=== PATIENT | male | born 1945 | race Caucasian/White ===

== ENCOUNTER 2016-09-16 16:58 | Inpatient (IN) | payer OTHER ==
--- NOTE | 2016-09-16 17:48 | EDPHY ---
H & P Time Seen by Provider: 09/16/16 17:27 HPI/ROS: Chief complaint. Altered mental status HPI. Patient is 71-year-old male here by EMS with altered mental status. The patient lives is by himself in a motor. By to visit today and found the patient to be confused. He has many chronic medical problems. He was admitted in May for failure to thrive. Patient is without complaints but also is not oriented to time. He has a difficult time walking secondary to generalized weakness. He has a decubitus ulcer on his back that is being treated with outpatient wound management. Patient manages his own medications at home ROS Constitutional. Unknown fever. Generalized weakness Eyes. no problems with vision ENT. no sore throat, no nasal drainage Cardiovascular. no chest pain Respiratory. no shortness of breath, no cough Abdominal. no abdominal pain, no nausea/vomiting, no diarrhea . no problems urinating MS. no calf pain/swelling, no neck/back pain, no joint pain Skin. Decubitus ulcer on back Lymph. no swollen glands Neuro. Can't walk. Minimal verbalization Past Medical/Surgical History: Past medical history CHF, COPD, diabetes, hypertension, dyslipidemia, chronic pain on chronic opiates, depression, lumbar radiculopathy, venous stasis, frequent falls Social History: Lives alone, daily smoker, no recent alcohol Smoking Status: Current every day smoker Physical Exam: General Appearance: Alert but essentially nonverbal male afebrile vital signs are stable with O2 saturation 90% on room air Eyes: Pupils equal and round no pallor or injection. ENT, Mouth: Mucous membranes are moist. Respiratory: No retractions but rales in the bases especially right lung base Cardiovascular: Regular rate and rhythm. Gastrointestinal: Abdomen is soft and nontender, no masses, bowel sounds normal. Neurological: Awake and alert, sensory and motor exams grossly normal. Skin: There is a 3 x 7 cm decubitus ulcer over the lumbar spine. No significant cellulitis or drainage around it Musculoskeletal: Neck is supple nontender. Extremities chronic swelling and venous stasis ulcers to his legs Psychiatric: Patient is oriented to person and place but not to time. When questioned about time he just keeps repeating "it's 3 3 it's 3 3" Constitutional: Initial Vital Signs Temperature (C) 36.5 C 09/16/16 17:06 Heart Rate 83 09/16/16 17:06 Respiratory Rate 18 09/16/16 17:06 Blood Pressure 155/102 H 09/16/16 17:06 O2 Sat (%) 90 L 09/16/16 17:06 O2 Delivery Mode Nasal Cannula O2 (L/minute) 3 Allergies/Adverse Reactions: No Known Allergies Allergy (Unverified 12/26/10 10:34) Home Medications: Medication Instructions Recorded Aspirin EC [Aspirin EC 81 mg (*)] 81 mg PO DAILY 06/06/16 Furosemide 20 mg PO DAILY 06/06/16 Mirtazapine 15 mg PO HS 06/06/16 Polyethylene Glycol 3350 [Miralax 17 gm PO DAILY PRN 06/06/16 17 gm (*)] Pregabalin [LYRICA] 75 mg PO TID 06/06/16 Quetiapine Fumarate 400 mg PO HS 06/06/16 Albuterol [Proventil Inhaler HFA 2 puffs IH Q4HRS PRN #0 mdi 06/10/16 (*)] Cephalexin [Keflex (*)] 500 mg PO Q6HRS #0 cap 06/10/16 Clobetasol 0.05% [Temovate Cream] 1 chintan TP BID #0 cream 06/10/16 HYDROmorphone HCL [Dilaudid 2 mg 2 mg PO Q4 PRN #0 tab 06/10/16 (*)] Nicotine Polacrilex [Nicorette gum 2 mg B Q1HR PRN #0 gum 06/10/16 (*)] Nicotine [Nicoderm Cq 21 mg (*)] 21 mg TD DAILY #0 patch 06/10/16 Sennosides/Docusate Sodium 1 - 2 tab PO BID #0 tab 06/10/16 [Senokot-S] morphINE SR [Ms Contin/Oramorph 100 mg PO TID #0 tab 06/10/16 100 mg (*)] Medical Decision Making - Diagnostics EKG Interpretation: EKG interpreted by me shows normal sinus rhythm with normal interval and axis. QRS is normal. There is frequent PACs. No significant ST elevation or depression. Rate is 79 Imaging: Chest x-ray interpreted by me as right lower lobe pneumonia CT head without contrast shows atrophy and chronic changes but no acute intracranial injury Procedures: IV normal saline. Septic workup ED Course/Re-evaluation: Lactate is negative. Severe sepsis is not cleared. Patient is given IV Rocephin. On serial evaluations patient does seem a little bit more talkative. He still is confused I consulted and discussed case with Dr. Marlys Garcia, hospitalist, who agrees to the admission Differential Diagnosis: Altered mental status this may be the patient taking too many medications. I considered infection and sepsis including pneumonia and urinary tract infection. - Data Points Laboratory Results: Laboratory Results 09/16/16 17:20 09/16/16 17:20 09/16/16 09/16/16 09/16/16 18:07 18:00 17:50 WBC RBC Hgb Hct MCV MCH MCHC RDW Plt Count MPV Neut % (Auto) Lymph % (Auto) Saunders % (Auto) Eos % (Auto) Baso % (Auto) Nucleat RBC Rel Count Absolute Neuts (auto) Absolute Lymphs (auto) Absolute Monos (auto) Absolute Eos (auto) Absolute Basos (auto) Absolute Nucleated RBC Immature Gran % Immature Gran # PT INR APTT VBG Lactic Acid 1.5 mmol/L mmol/L (0.7-2.1) Sodium Potassium Chloride Carbon Dioxide Anion Gap BUN Creatinine Estimated GFR Glucose Calcium Total Bilirubin NT-Pro-B Natriuret Pep Pending Urine Color YELLOW Urine Appearance CLEAR Urine pH 6.0 (5.0-7.5) Ur Specific [place] 1.008 (1.002-1.030) Urine Protein NEGATIVE (NEGATIVE) Urine Ketones NEGATIVE (NEGATIVE) Urine Blood NEGATIVE (NEGATIVE) Urine Nitrate NEGATIVE (NEGATIVE) Urine Bilirubin NEGATIVE (NEGATIVE) Urine Urobilinogen NEGATIVE EU EU (0.2-1.0) Ur Leukocyte Esterase NEGATIVE (NEGATIVE) Urine Glucose NEGATIVE (NEGATIVE) 09/16/16 09/16/16 09/16/16 17:20 17:20 17:00 WBC 10.48 10^3/uL H 10^3/uL (3.80-9.50) RBC 4.42 10^6/uL 10^6/uL (4.40-6.38) Hgb 12.8 g/dL L g/dL (13.7-17.5) Hct 39.8 % L % (40.0-51.0) MCV 90.0 fL fL (81.5-99.8) MCH 29.0 pg pg (27.9-34.1) MCHC 32.2 g/dL L g/dL (32.4-36.7) RDW 14.8 % % (11.5-15.2) Plt Count 209 10^3/uL 10^3/uL (150-400) MPV 10.8 fL fL (8.7-11.7) Neut % (Auto) 77.6 % H % (39.3-74.2) Lymph % (Auto) 15.3 % % (15.0-45.0) Saunders % (Auto) 5.5 % % (4.5-13.0) Eos % (Auto) 0.8 % % (0.6-7.6) Baso % (Auto) 0.5 % % (0.3-1.7) Nucleat RBC Rel Count 0.0 % % (0.0-0.2) Absolute Neuts (auto) 8.14 10^3/uL H 10^3/uL (1.70-6.50) Absolute Lymphs (auto) 1.60 10^3/uL 10^3/uL (1.00-3.00) Absolute Monos (auto) 0.58 10^3/uL 10^3/uL (0.30-0.80) Absolute Eos (auto) 0.08 10^3/uL 10^3/uL (0.03-0.40) Absolute Basos (auto) 0.05 10^3/uL 10^3/uL (0.02-0.10) Absolute Nucleated RBC 0.00 10^3/uL 10^3/uL (0-0.01) Immature Gran % 0.3 % % (0.0-1.1) Immature Gran # 0.03 10^3/uL 10^3/uL (0.00-0.10) PT 13.9 SEC SEC (12.0-15.0) INR 1.08 (0.83-1.16) APTT 43.0 SEC H SEC (23.0-38.0) VBG Lactic Acid Sodium 138 mEq/L mEq/L (134-144) Potassium 5.6 mEq/L H mEq/L (3.5-5.2) Chloride 100 mEq/L mEq/L (97-110) Carbon Dioxide 31 mEq/l mEq/l (22-31) Anion Gap 7 mEq/L L mEq/L (8-16) BUN 14 mg/dL mg/dL (7-23) Creatinine 0.8 mg/dL mg/dL (0.7-1.3) Estimated GFR > 60 Glucose 93 mg/dL mg/dL (70-100) Calcium 8.7 mg/dL mg/dL (8.5-10.4) Total Bilirubin 0.8 mg/dL mg/dL (0.1-1.4) NT-Pro-B Natriuret Pep Urine Color Urine Appearance Urine pH Ur Specific [place] Urine Protein Urine Ketones Urine Blood Urine Nitrate Urine Bilirubin Urine Urobilinogen Ur Leukocyte Esterase Urine Glucose Medications Given: Discontinued Medications Sodium Chloride (Ns) 500 mls @ 0 mls/hr IV ONCE ONE PRN Reason: As Directed Stop: 09/16/16 17:55 Last Admin: 09/16/16 18:00 Dose: 500 mls Departure - Departure Disposition: [facility] Inpatient Acute Clinical Impression: Altered mental status Qualifiers: Altered mental status type: disorientation Qualified Code(s): R41.0 - Disorientation, unspecified Condition: Fair
[2016-09-16] MEDS ORDERED: NS 500 ML IV ONE ×2 (17:54→19:48)
[2016-09-16 18:00] LABS: % IMMATURE GRANULYOCYTES 0.3 % (0.0-1.1); ABSOLUTE IMMATURE GRANULOCYTES 0.03 10^3/uL (0.00-0.10); ADD DIFF? NO; ADD MORPH? NO; ADD SCAN? NO; ATYPICAL LYMPHOCYTE FLAG 20 (0-99); FRAGMENT RBC FLAG 0 (0-99); HEMATOCRIT 39.8 % (40.0-51.0); HEMOGLOBIN 12.8 g/dL (13.7-17.5); LEFT SHIFT FLG 0 (0-99); LIPEMIA HEMOLYSIS FLAG 80 (0-99); MEAN CELL HEMOGLOBIN CONCENTR. 32.2 g/dL (32.4-36.7); MEAN PLATELET VOLUME 10.8 fL (8.7-11.7); PLATELET CLUMPS FLAG 10 (0-99); PLATELET COUNT 209 10^3/uL (150-400); RED BLOOD CELL COUNT 4.42 10^6/uL (4.40-6.38); RED CELL DISTRIBUTION WIDTH 14.8 % (11.5-15.2)
[2016-09-16 18:06] LABS: ANION GAP 7 mEq/L (8-16); BILIRUBIN,TOTAL 0.8 mg/dL (0.1-1.4); CALCIUM 8.7 mg/dL (8.5-10.4); CARBON DIOXIDE 31 mEq/l (22-31); CHLORIDE 100 mEq/L (97-110); CREATININE 0.8 mg/dL (0.7-1.3); GLOMERULAR FILTRATION RATE > 60; GLUCOSE 93 mg/dL (70-100); POTASSIUM 5.6 mEq/L (3.5-5.2); SODIUM 138 mEq/L (134-144)
[2016-09-16 18:15] LABS: COLOR YELLOW; LEUKOCYTE ESTERASE,URINE NEGATIVE (NEGATIVE); NITRITE,URINE NEGATIVE (NEGATIVE)
[2016-09-16 18:42] LABS: INR 1.08 (0.83-1.16); PROTIME(PATIENT) 13.9 SEC (12.0-15.0)
[2016-09-16] MEDS ORDERED: ONDANSETRON 4 MG/2 ML VIAL IVP PRN (19:17)
[2016-09-16] MEDS ORDERED: ONDANSETRON DISINTEGRATING 4 MG TAB PO PRN (19:17)
[2016-09-16] MEDS ORDERED: ALBUTEROL 3 ML DEYVIAL IH PRN (19:17)
--- NOTE | 2016-09-16 19:23 | CPEKG ---
Heart Rate: 79 RR Interval: 759 P-R Interval: 196 QRSD Interval: 84 QT Interval: 360 QTC Interval: 413 P [place]: 73 QRS [place]: 39 T Wave [place]: 50 EKG Severity - ABNORMAL ECG - EKG Impression: SINUS RHYTHM EKG Impression: MULTIPLE ATRIAL PREMATURE COMPLEXES EKG Impression: LOW VOLTAGE IN FRONTAL LEADS Electronically Signed By: Zhao North 16-Sep-2016 21:47:08
--- NOTE | 2016-09-16 19:55 | PDGENHP ---
History and Physical - Chief Complaint altered mental status - History of Present Illness 71 yo male with h/o COPD, chronic pain on high dose opiates and chronic lumbar spine pressure ulcer presents to ED after his family found him in his motor home in an altered state. Upon arrival to the ED, he would only repeat "33" to the physician. He received 500 cc NS bolus and upon my evaluation, he is pleasant and answers questions. He denies fevers, cough, CP or SOB. He uses 2- 4 LPM O2 at night for chronic COPD and continues to smoke a pack per day. He denies wheezing or HALL. He is not sure why he is in the ED and feels well enough to go home. However, he does exhibit some confusion, is unable to correctly repeat even 3 numbers back to me. He denies falling or hitting his head. He reports chronic swelling of his eyelids. He takes high dose opiates for his chronic pain and states he takes his medication as prescribed. He has been receiving home health care services for ongoing wound care of a lumbar spine pressure injury. He had a negative head CT in the ED. He is hypoxic, requiring 4 LPM here and is admitted for further evaluation of his altered mental status and hypoxemia. History Information - Allergies/Home Medication List Allergies/Adverse Reactions: No Known Allergies Allergy (Unverified 12/26/10 10:34) Home Medications: Aspirin EC [Aspirin EC 81 mg (*)] 81 mg PO DAILY 06/06/16 [Last Taken 09/16/16 08:00] Polyethylene Glycol 3350 [Miralax 17 gm (*)] 17 gm PO DAILY PRN 06/06/16 [Last Taken 09/15/16] Furosemide [Lasix 20 MG (*)] 20 mg PO DAILY 09/16/16 [Last Taken 09/16/16 08:00] Mirtazapine 15 mg PO HS 09/16/16 [Last Taken 09/15/16 20:00] Morphine Sulfate [Morphine Sulfate ER] 200 mg PO DAILY 09/16/16 [Last Taken 15:00] Pregabalin [Lyrica 75mg (*)] 75 mg PO HS 09/16/16 [Last Taken 09/14/16] I have personally reviewed and updated: family history, medical history, social history, surgical history - Past Medical History CHF ( diastolic with venous stasis dermatitis), COPD ( On nocturnal oxygen), diabetes type 2, hypertension, hyperlipidemia Additional medical history: chronic pain with continuous opiate dependency, major depressive disorder, chronic lumbar radiculopathy, lumbar pressure ulcer - Surgical History Additional surgical history: reportedly 5 back surgeries and most recent L- spine injection was greater than 3 months ago - Family History Additional family history: mother with breast cancer, no family history of colon cancer - Social History Smoking Status: Current every day smoker Tobacco Use: Cigarettes, Greater than 1 pack/day Alcohol Use: Rarely Drug Use: None Additional social history: independent in his ADLs, utilizes walker for ambulation Review of Systems ROS: 10pt was reviewed & negative except for what was stated in HPI & below Physical Exam Temp Pulse Resp BP Pulse Ox 36.5 C 92 14 150/65 H 91 L 09/16/16 17:06 09/16/16 19:30 09/16/16 19:30 09/16/16 19:30 09/16/16 19:30 O2 (L/minute) 4 Constitutional: chronically ill appearing, unkempt Eyes: PERRL, scleral injection, other (b/l eyelid edema, which pt states is chronic) Ears, Nose, Mouth, Throat: dry mucous membranes, other (adentulous) Cardiovascular: regular rate and rhythym, no murmur, rub, or gallop Respiratory: no respiratory distress, inspiratory crackles Gastrointestinal: normoactive bowel sounds, soft, non-tender abdomen Skin: warm, other (lumbar spine with ~4x6 cm ulceration into sub-cutaneous tissue, no purulence or surrounding erythema) Musculoskeletal: full muscle strength Psychiatric: encephalopathic Lab Data & Imaging Review 09/16/16 17:20 09/16/16 23:12 WBC 10.48 10^3/uL (3.80-9.50) H 09/16/16 17:20 RBC 4.42 10^6/uL (4.40-6.38) 09/16/16 17:20 Hgb 12.8 g/dL (13.7-17.5) L 09/16/16 17:20 Hct 39.8 % (40.0-51.0) L 09/16/16 17:20 MCV 90.0 fL (81.5-99.8) 09/16/16 17:20 MCH 29.0 pg (27.9-34.1) 09/16/16 17:20 MCHC 32.2 g/dL (32.4-36.7) L 09/16/16 17:20 RDW 14.8 % (11.5-15.2) 09/16/16 17:20 Plt Count 209 10^3/uL (150-400) 09/16/16 17:20 MPV 10.8 fL (8.7-11.7) 09/16/16 17:20 Neut % (Auto) 77.6 % (39.3-74.2) H 09/16/16 17:20 Lymph % (Auto) 15.3 % (15.0-45.0) 09/16/16 17:20 [place] % (Auto) 5.5 % (4.5-13.0) 09/16/16 17:20 Eos % (Auto) 0.8 % (0.6-7.6) 09/16/16 17:20 Baso % (Auto) 0.5 % (0.3-1.7) 09/16/16 17:20 Nucleat RBC Rel Count 0.0 % (0.0-0.2) 09/16/16 17:20 Absolute Neuts (auto) 8.14 10^3/uL (1.70-6.50) H 09/16/16 17:20 Absolute Lymphs (auto) 1.60 10^3/uL (1.00-3.00) 09/16/16 17:20 Absolute Monos (auto) 0.58 10^3/uL (0.30-0.80) 09/16/16 17:20 Absolute Eos (auto) 0.08 10^3/uL (0.03-0.40) 09/16/16 17:20 Absolute Basos (auto) 0.05 10^3/uL (0.02-0.10) 09/16/16 17:20 Absolute Nucleated RBC 0.00 10^3/uL (0-0.01) 09/16/16 17:20 Immature Gran % 0.3 % (0.0-1.1) 09/16/16 17:20 Immature Gran # 0.03 10^3/uL (0.00-0.10) 09/16/16 17:20 PT 13.9 SEC (12.0-15.0) 09/16/16 17:00 INR 1.08 (0.83-1.16) 09/16/16 17:00 APTT 43.0 SEC (23.0-38.0) H 09/16/16 17:00 VBG Lactic Acid 1.5 mmol/L (0.7-2.1) 09/16/16 18:07 Sodium 138 mEq/L (134-144) 09/16/16 17:20 Potassium 5.6 mEq/L (3.5-5.2) H 09/16/16 17:20 Chloride 100 mEq/L (97-110) 09/16/16 17:20 Carbon Dioxide 31 mEq/l (22-31) 09/16/16 17:20 Anion Gap 7 mEq/L (8-16) L 09/16/16 17:20 BUN 14 mg/dL (7-23) 09/16/16 17:20 Creatinine 0.8 mg/dL (0.7-1.3) 09/16/16 17:20 Estimated GFR > 60 09/16/16 17:20 Glucose 93 mg/dL (70-100) 09/16/16 17:20 Calcium 8.7 mg/dL (8.5-10.4) 09/16/16 17:20 Total Bilirubin 0.8 mg/dL (0.1-1.4) 09/16/16 17:20 Urine Color YELLOW 09/16/16 17:50 Urine Appearance CLEAR 09/16/16 17:50 Urine pH 6.0 (5.0-7.5) 09/16/16 17:50 Ur Specific [place] 1.008 (1.002-1.030) 09/16/16 17:50 Urine Protein NEGATIVE (NEGATIVE) 09/16/16 17:50 Urine Ketones NEGATIVE (NEGATIVE) 09/16/16 17:50 Urine Blood NEGATIVE (NEGATIVE) 09/16/16 17:50 Urine Nitrate NEGATIVE (NEGATIVE) 09/16/16 17:50 Urine Bilirubin NEGATIVE (NEGATIVE) 09/16/16 17:50 Urine Urobilinogen NEGATIVE EU (0.2-1.0) 09/16/16 17:50 Ur Leukocyte Esterase NEGATIVE (NEGATIVE) 09/16/16 17:50 Urine Glucose NEGATIVE (NEGATIVE) 09/16/16 17:50 Visualized and Interpreted Chest x-ray results: Yes Visualized and Interpreted EKG results: Yes Assessment & Plan Assessment: Acute Encephalopathy - differential includes toxic/metabolic vs medication induced (polypharmacy with high dose opiates and sedating medications) vs infectious vs hypoxemia induced. CT head negative. -Check ABG -treat for possible PNA, further hypoxemia evaluation below -hold sedating medications tonight, but will need to resume opiates tomorrow to avoid w/d -speech/swallow eval Acute on chronic hypoxemic respiratory failure - H/O COPD, uses 2-4 LPM O2 at night. No symptoms of acute COPD exacerbation. Serum CO2 slightly elevated at 31. CXR personally reviewed- possible RLL PNA with blurred diaphragm and right heart border, but with diffuse appearance, may be more c/w HF. He had a normal EF on echo in 2014, RVSP 40. With LE edema, bibasilar crackles and elevated BNP , suspect HF. -r/o PE: check d dimer and pursue CTPA if elevated. CT will also help differentiate fluid from infiltrate. -check ABG -Cont Ceftriaxone/Azithromycin for now for possible PNA -BNP sent and is elevated, increasing suspicion for acute HF as etiology of hypoxemia. IV Lasix now, stop fluids. -echo in am -wean O2 as able, may need continuous home O2 rather than just nocturnal Chronic pain with chronic continuous opioid dependence - he is on >300 morphine equivalents per day. This may be contributing to his hypoxemia and altered mentation. I am concerned it is not safe for him to be managing these high risk medications and he may need a higher level of care or assistance with medication management. -resume morphine in am to prevent w/d, holding tonight given altered mentation (?may need dose reduction) -CM consult Pressure injury lumbar spine - wound care consult requested. This is a deep ulcer, but it does not appear acutely infected. A wound Cx was sent in ED. DM - BG 93 on arrival and prior bg data in 100's. Will order dose adjusted pre- prandial insulin, await med rec. Hypertension - PRN Hydralazine, may need to add an oral agent to his home regimen if persists. Hyperkalemia - mild. Will recheck. Kayexalate if persists elevated. He's also getting Lasix. LE venous stasis - chronic appearance. Continue support hose. DVT PPLX - Lovenox Full code Dispo - inpt, may need placement, CM consult requested. PT/OT evals requested.
[2016-09-16] MEDS ORDERED: D50W 25 GM/50 ML SYR IVP PRN (19:56)
[2016-09-16] MEDS ORDERED: ERYTHROMYCIN 0.5% 1 GM OPHT.OINT EACHEYE ONE (19:57)
[2016-09-16] MEDS ORDERED: NS 1,000 ML IV SCH (20:00)
[2016-09-16 22:18] LABS: BASE EXCESS 2.3 mEq/L (-2.5-2.5); BICARBONATE 28 mEq/L (22-26); MEASURED OXYGEN SATURATION 91 % (92-95); PCO2 50 mmHg (34-38); PO2 62 mmHg (65-75); TCO2 29 mEq/L (23-27)
[2016-09-16] MEDS: IPRATROPIUM/ALBUTEROL 3 ML DEYVIAL IH SCH (22:27)
[2016-09-16] MEDS: AZITHROMYCIN IV 500 MG in D5W 250 ML IV SCH (22:39)
[2016-09-16] MEDS ORDERED: NON-FORMULARY NEW DRUG (Mirtazapine [Mirtazapine] 15 MG) PO SCH (22:57)
[2016-09-16] MEDS ORDERED: hydrALAZINE 20 MG/ML VIAL IVP PRN (23:02)
[2016-09-16] MEDS ORDERED: FUROSEMIDE 40 MG/4 ML VIAL IVP ONE (23:07)
[2016-09-16 23:22] LABS: POTASSIUM 4.4 mEq/L (3.5-5.2)
[2016-09-16] MEDS: MIRTAZAPINE 15 MG TAB PO SCH (23:43)
[2016-09-16] MEDS: ACETAMINOPHEN 325 MG TAB PO PRN (23:47)
[2016-09-17] MEDS ORDERED: IOPAMIDOL (ISOVUE-370) 150 ML BTL IV ONE (00:23)
[2016-09-17] MEDS: IPRATROPIUM/ALBUTEROL 3 ML DEYVIAL IH SCH ×7 (02:45→23:15)
[2016-09-17 04:43] LABS: % IMMATURE GRANULYOCYTES 0.4 % (0.0-1.1); ABSOLUTE IMMATURE GRANULOCYTES 0.03 10^3/uL (0.00-0.10); ADD DIFF? NO; ADD MORPH? NO; ADD SCAN? NO; ATYPICAL LYMPHOCYTE FLAG 30 (0-99); FRAGMENT RBC FLAG 0 (0-99); HEMATOCRIT 35.6 % (40.0-51.0); HEMOGLOBIN 11.4 g/dL (13.7-17.5); LEFT SHIFT FLG 0 (0-99); LIPEMIA HEMOLYSIS FLAG 80 (0-99); MEAN CELL HEMOGLOBIN 28.5 pg (27.9-34.1); PLATELET CLUMPS FLAG 0 (0-99); PLATELET COUNT 164 10^3/uL (150-400); RED CELL DISTRIBUTION WIDTH 14.9 % (11.5-15.2)
[2016-09-17 04:46] LABS: ANION GAP 7 mEq/L (8-16); CALCIUM 8.6 mg/dL (8.5-10.4); CARBON DIOXIDE 30 mEq/l (22-31); CHLORIDE 103 mEq/L (97-110); CREATININE 0.8 mg/dL (0.7-1.3); GLOMERULAR FILTRATION RATE > 60; GLUCOSE 89 mg/dL (70-100); SODIUM 140 mEq/L (134-144)
[2016-09-17] MEDS: ERYTHROMYCIN 0.5% 1 GM OPHT.OINT EACHEYE SCH ×4 (05:42→23:22)
[2016-09-17] MEDS ORDERED: ALBUTEROL 60 PUFFS/8 GM MDI IH PRN (07:32)
[2016-09-17] MEDS: INSULIN LISPRO 100 UNIT/ML SC SCH ×3 (09:13→18:00)
[2016-09-17] MEDS: AZITHROMYCIN IV 500 MG in D5W 250 ML IV SCH (09:32)
[2016-09-17] MEDS: ASPIRIN EC 81 MG TAB PO SCH (09:44)
[2016-09-17] MEDS: FUROSEMIDE 20 MG TAB PO SCH (09:44)
[2016-09-17] MEDS: NICOTINE 21 MG/24 HR PATCH TD SCH (09:44)
[2016-09-17] MEDS: ENOXAPARIN 40 MG/0.4 ML SYR SC SCH (09:45)
[2016-09-17] MEDS: CLOBETASOL 0.05% 15 GM CRTUBE TP SCH ×2 (10:23→23:20)
--- NOTE | 2016-09-17 10:51 | ECHO ---
[id number] + + [address] : : [place] [address] : : [phone] + Adult Echocardiographic Report + ----+ :Name: RAHAT CASTELAN Boubacar Date: 09/17/2016 07:41 AM : : Hospital Admission Number: [id number] Location: 347: :: 1945 Gender: Male Height: 68 in : :Age: 71 yrs Race: WH Weight: 180 lb : :Reason For Study: Elevated BNP/hypoxemia : : BSA: 2.0 meters2 : :History: Stents : + ----+ MMode/2D Measurements \T\ Calculations LVIDd: 4.3 cm EDV(Teich): 83.5 ml Ao root diam: 3.9 cm LA dimension: 4.9 cm Normal Measurement Values: + + :LVIDd (3.5-5.7cm) IVSd (0.6-1.1cm) LVPWd (0.6-1.1cm) Aortic Root (2.0-3.7cm)Left Atrium (1.5-4.0cm): :LV Vol(d) (76-115ml) LV Vol(s) (29-48ml) Ejec Fraction (50-65%)PV Jose (0.6- 1.2m/s) TV Jose (0.4-1.0m/s) : :MV E Jose (0.8-1.0m/s)MV A Jose (0.3-1.0m/s)LVOT Jose (0.7-1.2m/s) Asc Ao Jose ( 0.9-1.8m/s) : + + Doppler Measurements \T\ Calculations MV E max jose: 101.0 cm/sec Ao V2 max: 123.0 cm/sec TR max jose: 300.0 cm/sec MV A max jose: 61.2 cm/sec Ao max P.1 mmHg TR max P.0 mmHg MV E/A: 1.7 Ao mean P.0 mmHg RAP systole: 5.0 mmHg Ao V2 mean: 77.7 cm/sec RVSP(TR): 41.0 mmHg Ao V2 VTI: 26.7 cm Left Ventricle The left ventricle is normal in size. There is normal left ventricular wall thickness. The left ventricle is hyperdynamic. Ejection Fraction = 70-75%. There is Doppler evidence for diastolic dysfunction. No regional wall motion abnormalities noted. Right Ventricle The right ventricle is normal in size and function. Atria The left atrium is mildly dilated. Right atrial size is normal. The interatrial septum is intact with no evidence for an atrial septal defect. Mitral Valve The mitral valve is normal in structure and function. There is no evidence of mitral valve prolapse. There is no mitral valve stenosis. There is mild mitral regurgitation. Tricuspid Valve Normal tricuspid valve. There is mild tricuspid regurgitation. Right ventricular systolic pressure is 41-46mmHg. There is Doppler evidence for mild pulmonary hypertension. Aortic Valve The aortic valve opens well. There is no aortic stenosis. There is no aortic insufficiency. Pulmonic Valve The pulmonic valve is normal in structure and function. There is no pulmonic valvular regurgitation. Great Vessels The aortic root is normal size. Pericardium/Pleural Fat pad vs. trace anterior pericardial effusion. Conclusion A complete two-dimensional transthoracic echocardiogram was performed (2D, M-mode, Doppler and color flow Doppler). The left ventricle is hyperdynamic. Ejection Fraction = 70-75%. There is Doppler evidence for diastolic dysfunction. Valvualr appearance is normal. The left atrium is mildly dilated. There is mild mitral regurgitation. There is mild tricuspid regurgitation. Right ventricular systolic pressure is 41-46mmHg. There is Doppler evidence for mild pulmonary hypertension. Fat pad vs. trace anterior pericardial effusion. Final Reading Physician: Cesar Mcmillan signed on 09/17/2016 10:50 AM Ordering Physician: Marlys Garcia Performed By: Rachel Tellez RDCS
--- NOTE | 2016-09-17 14:42 | WOCRNPDOC ---
WOCRN Advanced Assessment Note - Skin Integrity Problem, Advanced Assess Lower Back Pressure Injury Dressing Type: Mepilex Border Dressing Description: Shadowed Exudate Amount: Minimal Exudate Color: Reddish/Yellow Exudate Characteristic(s): Serosanguinous Integumentary Issue Intervention: Dressing Changed, Dressing Initialed & Dated Nataly Wound Tissue: Intact Nataly Wound Swelling: Mild Wound Bed Color: Red, Yellow Wound Bed Constitution: Granulation Tissue, Undermining (0.5 cm @ 12:00), Adhered Slough (<5% of wound bed) Wound Edges: Epibole, Well Defined Site Odor: None Site Measurement - Head-to-Toe Length X Width X Depth (cm): 5.5 x 3.3 x 0.5 Skin Integrity Problem Comment: Patient reports that injury resulted from a fall against "the edge of a cabinet" at home; and that "a nurse has been changing the dressing every day" either at home or SNF. Removed the shadowed dressing, irrigated wound bed w/NS, gently debrided base w/gauze. Skin prepped periwound; placed Hydrofera Blue Ready foam cut to fit, into base; secured w/ steristrips; covered w/Allevyn. Report to GUNNAR Montano. Right Ankle Excoriation Dressing Type: Allevyn Life Dressing Description: Shadowed Exudate Amount: Minimal Exudate Characteristic(s): Serosanguinous Integumentary Issue Intervention: Dressing Changed, Dressing Initialed & Dated Nataly Wound Tissue: Erythema, Raw, Lipodermatosclerosis, Hemosiderin Staining, Venous Dermatitis, Xerotic, Hair Loss Nataly Wound Swelling: Mild Wound Bed Color: Red Wound Bed Constitution: Smooth Tissue Wound Edges: Irregular, Scarred Site Odor: Slight, Musky Site Measurement - Head-to-Toe Length X Width X Depth (cm): 5 x 4 x 0.2 Skin Integrity Problem Comment: Probable venous stasis ulcer: Moist, shiny erythemic tissue at base, w/irregular margin, surrounded by dry, flaking dermis. Cleaned w/sterile NS and gauze; applied skin prep to intact perimeter; Placed Duoderm hydrocolloid to provide low-profile protection under tubigrips. Applied Dimethicone cream to intact skin at bilateral feet and LEs; Report to GUNNAR Montano.
--- NOTE | 2016-09-17 14:57 | HOSPPROG ---
Hospitalist Progress Note Assessment/Plan: Patient is a 71-year-old male with a history of COPD, chronic pain on high-dose opiates. He presented in the emergency room after his family found him in his motor home in an altered state. On arrival to the ER he was unsure why he was being admitted. Patient shares with me that he knew he was in a confused and something was wrong but was not clear. Today is my 1st encounter with the patient. Chart reviewed. * Acute encephalopathy - ABG shows low oxygen level / some CO2 retention - suspect his encephalopathy is secondary from medication /is on high-dose opiates and from being hypoxic - he has cleared mentally with holding his long-acting narcotic - he is alert and oriented to person place time and situation today * concern for community-acquired pneumonia/ bronchitis - started on treatment - blood cultures pending - on ceftriaxone and azithromycin * acute on chronic hypoxemic respiratory failure - at baseline the patient wears oxygen at night but not during the day - CTA shows no PE/ extensive bronchitis with ground glass opacities. Has highly prominent lymph nodes, likely reactive - echo shows an EF of 70-75%. Elevated RV pressures. Left ventricle is hyper dynamic. Diastolic dysfunction * nicotine dependence - cessation recommended/ nicotine patch * pressure injury on lumbar spine/ right ankle excoriation - appreciate wound care * diabetes types 2 - glucose 89 this morning * hypertension - BP is 134/56 * hyperkalemia - resolved * lower extremity venous stasis/ chronic * DVT prophylaxis - low molecular weight heparin * plan. Likely will be able to go home tomorrow. Patient is very willing to cut back on his long-acting narcotic or just take p.r.n. Bluefield. Will do a trial of Bluefield. He will need home care. He does have some cognitive impairment per speech therapy. Physical therapy is recommending going home with a walker Subjective: He has no complaints. Objective: Vital Signs Temp Pulse Resp BP Pulse Ox 36.8 C 74 16 134/56 H 95 09/17/16 11:50 09/17/16 11:50 09/17/16 11:50 09/17/16 11:50 09/17/16 11:50 Laboratory Results 09/17/16 04:15 09/17/16 04:15 09/16/16 09/17/16 09/18/16 05:59 05:59 05:59 Intake Total 950 Output Total 2024 540 Balance -1075 -540 PT 13.9 SEC (12.0-15.0) 09/16/16 17:00 INR 1.08 (0.83-1.16) 09/16/16 17:00 - Physical Exam Constitutional: no apparent distress, appears nourished, not in pain Eyes: PERRL Ears, Nose, Mouth, Throat: hearing normal Cardiovascular: regular rate and rhythym, no murmur, rub, or gallop Respiratory: no respiratory distress, reduced air movement ( Bibasilar but otherwise clear) Gastrointestinal: normoactive bowel sounds Skin: warm, normal color Musculoskeletal: no muscle tenderness Neurologic: AAOx3 Psychiatric: interacting appropriately, not anxious, not encephalopathic, thought process linear ICD10 Worksheet Patient Problems: Problems Problem Status Onset Altered mental status Acute Aspiration pneumonia Acute COPD (chronic obstructive pulmonary disease) Acute DM type 1 (diabetes mellitus, type 1) Acute Lumbosacral radiculopathy at L5 Acute Narcotic dependency, continuous Acute Renal failure Acute Severe sepsis with septic shock Acute Spinal stenosis, lumbar Acute Tobacco dependence Acute
[2016-09-17] MEDS: VANCOMYCIN HCL/NORMAL SALINE 250 ML IV SCH (18:35)
[2016-09-17] MEDS: HYDROCODONE/APAP 5/325 TAB PO PRN (18:35)
[2016-09-17] MEDS: MIRTAZAPINE 15 MG TAB PO SCH (19:51)
[2016-09-17] MEDS: PREGABALIN 75 MG CAP PO SCH (19:51)
[2016-09-18] MEDS: IPRATROPIUM/ALBUTEROL 3 ML DEYVIAL IH SCH ×5 (03:02→20:06)
[2016-09-18] MEDS: HYDROCODONE/APAP 5/325 TAB PO PRN ×2 (05:36→14:00)
[2016-09-18] MEDS: VANCOMYCIN HCL/NORMAL SALINE 250 ML IV SCH ×2 (05:36→18:11)
[2016-09-18] MEDS: ERYTHROMYCIN 0.5% 1 GM OPHT.OINT EACHEYE SCH ×4 (05:44→21:58)
[2016-09-18] MEDS: INSULIN LISPRO 100 UNIT/ML SC SCH ×2 (08:33→13:34)
[2016-09-18 09:17] LABS: ALANINE AMINOTRANSFERASE 25 IU/L (21-72); ALKALINE PHOSPHATASE 84 IU/L (38-126); ANION GAP 7 mEq/L (8-16); ASPARTATE AMINOTRANSFERASE 64 IU/L (17-59); BILIRUBIN,TOTAL 0.7 mg/dL (0.1-1.4); CALCIUM 8.5 mg/dL (8.5-10.4); CARBON DIOXIDE 28 mEq/l (22-31); CHLORIDE 107 mEq/L (97-110); CREATININE 0.7 mg/dL (0.7-1.3); GLOMERULAR FILTRATION RATE > 60; GLUCOSE 122 mg/dL (70-100); POTASSIUM 3.9 mEq/L (3.5-5.2); SODIUM 142 mEq/L (134-144); TOTAL PROTEIN 6.6 g/dL (6.3-8.2)
[2016-09-18 09:20] LABS: % IMMATURE GRANULYOCYTES 0.1 % (0.0-1.1); ABSOLUTE IMMATURE GRANULOCYTES 0.01 10^3/uL (0.00-0.10); ADD DIFF? NO; ADD MORPH? NO; ADD SCAN? NO; ATYPICAL LYMPHOCYTE FLAG 30 (0-99); FRAGMENT RBC FLAG 0 (0-99); HEMATOCRIT 34.4 % (40.0-51.0); HEMOGLOBIN 11.4 g/dL (13.7-17.5); LEFT SHIFT FLG 0 (0-99); LIPEMIA HEMOLYSIS FLAG 80 (0-99); MEAN CELL HEMOGLOBIN 28.2 pg (27.9-34.1); MEAN CELL HEMOGLOBIN CONCENTR. 33.1 g/dL (32.4-36.7); MEAN CELL VOLUME 85.1 fL (81.5-99.8); MEAN PLATELET VOLUME 10.4 fL (8.7-11.7); PLATELET CLUMPS FLAG 0 (0-99); PLATELET COUNT 162 10^3/uL (150-400); RED BLOOD CELL COUNT 4.04 10^6/uL (4.40-6.38); RED CELL DISTRIBUTION WIDTH 15.2 % (11.5-15.2)
[2016-09-18] MEDS: NICOTINE 21 MG/24 HR PATCH TD SCH (10:41)
[2016-09-18] MEDS: ASPIRIN EC 81 MG TAB PO SCH (10:43)
[2016-09-18] MEDS: FUROSEMIDE 20 MG TAB PO SCH (10:43)
[2016-09-18] MEDS: CLOBETASOL 0.05% 15 GM CRTUBE TP SCH ×2 (10:44→21:58)
[2016-09-18] MEDS: ENOXAPARIN 40 MG/0.4 ML SYR SC SCH (10:44)
[2016-09-18] MEDS ORDERED: MORPHINE SULFATE PO PRN (14:01)
--- NOTE | 2016-09-18 14:10 | HOSPPROG ---
Hospitalist Progress Note Assessment/Plan: Assessment: 71-year-old male p/w acute encephalopathy in setting of bacteremia Plan: # Acute encephalopathy. Evidenced by global brain dysfunction characterized as unresponsiveness plus confusion plus somnolence, acute change from his baseline , most likely secondary to the toxic effects of infection, potentially exacerbated by toxic effects of sustained release opiate - clearing w/ treatment of infxn, holding opiate # Bacteremia. Acute, new problem, further w/u indicated. GPC clusters/GPR, suspect this is MSSA w/ wound as source - D#2 Vanco, will likely adjust abx today toward MSSA once speciates - d/w Dr. Mcgurie, confirmed receipt, appreciate ID consultation - this is day 3 total Abx (CTX day 1, then Vanco), so repeat BCx now - if BCx neg, then PICC and outpt IV Abx # Possible aspiration pneumonia. Evidenced by bibasilar infiltrates on CTA ( personally interpreted) in setting of encephalopathy - leukocytosis improved w/ CTX/AZithro, as it was originally interpreted as CAP - tx stopped yesterday when bacteremia identified as GPC clusters, adjusted to Vanco - will d/w ID whether to empirically tx w/ augmentin - repeat REMOTE SENSING SCIENTIST eval # Atelectasis. Present on CT, resulting in SpO2 90s% on 3-4L in setting of encephalopathy - no overt resp failure - more aggressive IS # Chronic diastolic CHF. No e/o acute exacerbation, has e/o stasis dermatitis, cont current lasix - echo w/ diastolic dysfunction # Nicotine dependence. Cessation recommended/ nicotine patch # Pressure injury. Located on lumbar spine/ right ankle excoriation - appreciate wound care - wound w/ MSSA, suspect this is the source of bacteremia # DM2. No home monitoring, no significant hyperglycemia, stop ISS # Chronic hypertension. Cont home Rx # Hyperkalemia. Resolved - resolved # Chronic pain w/ continuous opiate dependency. 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, reports he has plenty of home Rx and does not need refill # Neuropathy. Cont lyrica Diet. Regular PPx. High risk, lovenox 40 Code. Full Dispo. ADD 09/20 pending neg repeat BCx Subjective: Patient reports that he would like to go home as soon as possible, reports that he has been transferring safely with walker Objective: Vital Signs Temp Pulse Resp BP Pulse Ox 37.0 C 92 18 143/73 H 92 09/18/16 11:51 09/18/16 11:51 09/18/16 11:51 09/18/16 11:51 09/18/16 11:51 Laboratory Results 09/18/16 08:56 09/18/16 08:56 09/17/16 09/18/16 09/19/16 05:59 05:59 05:59 Intake Total 950 500 Output Total 2024 540 Balance -1075 -40 PT 13.9 SEC (12.0-15.0) 09/16/16 17:00 INR 1.08 (0.83-1.16) 09/16/16 17:00 - Physical Exam Constitutional: no apparent distress, not in pain, chronically ill appearing, No uncomfortable Cardiovascular: regular rate and rhythym, no murmur, rub, or gallop, edema (1+ bilateral lower extremity), No irregularly irregular, No tachycardia Respiratory: inspiratory crackles (Bilateral bases), No reduced air movement, No expiratory wheeze, No bronchial breath sounds Gastrointestinal: normoactive bowel sounds, soft, non-tender abdomen, no palpable masses Skin: other (No erythema surrounding the wound on his back, ulcer present in the lumbar thoracic spine, stasis dermatitis bilateral lower feet on the dorsal surfaces with onychomycosis of the nails) Neurologic: AAOx3, No sensation intact bilaterally (Paresthesias bilateral dorsum of the feet), No weakness (Motor strength 5/5 left lower extremity, 4/5 right lower extremity), No facial droop Psychiatric: interacting appropriately, not anxious, not encephalopathic, thought process linear ICD10 Worksheet Patient Problems: Problems Problem Status Onset Altered mental status Acute Aspiration pneumonia Acute COPD (chronic obstructive pulmonary disease) Acute DM type 1 (diabetes mellitus, type 1) Acute Lumbosacral radiculopathy at L5 Acute Narcotic dependency, continuous Acute Renal failure Acute Severe sepsis with septic shock Acute Spinal stenosis, lumbar Acute Tobacco dependence Acute
[2016-09-18] MEDS: MIRTAZAPINE 15 MG TAB PO SCH (19:58)
[2016-09-18] MEDS: PREGABALIN 75 MG CAP PO SCH (19:58)
--- NOTE | 2016-09-18 21:36 | GCON ---
INFECTIOUS DISEASES CONSULTATION DATE OF CONSULTATION: 09/18/2016 REFERRING PHYSICIAN: Taylor Butler NP REASON FOR CONSULTATION: Bacteremia. HISTORY OF PRESENT ILLNESS: The patient is a 71-year-old male with a past medical history of a lumb ar pressure ulceration dating back to last May, at which point in time he describes sustaining a scrape on a cabinet which subsequently has evolved into a chronic pressure ulceration. This was p resent on evaluation on 06/06/2016 when the patient was previously hospitalized. He describes primo beaulieu regular wound care via a home health nurse. The patient was in his usual state of health until this weekend, at which point in time, he was foun d confused by his family. He was noted to have confusion which persisted upon arrival at [facility]. He d id not have any preceding fevers, chills, cough, shortness of breath, or chest pain. He does describe having the chronic wound as outlined above without any significant interval changes . He previously had wounds over both ankles which have now resolved. At the time of presentation, he had a mild leukocytosis with a white blood cell count of 10.5 with 7 8% neutrophils. Blood cultures were obtained at the time of presentation with both sets growing Cor ynebacterium aurimucosum in 1 of 2 sets with Staphylococcus haemolyticus. Swab of the back wound jackson s grown MSSA. The patient had a CT scan of the chest which showed some ground-glass opacity in the bases, raising the question of pneumonia. He was initially treated empirically with ceftriaxone and azithromycin, which were changed to vancomycin yesterday when blood cultures became positive. Currently, the patient feels well without any specific complaints. Given the above findings, I am n ow asked to assist in his ongoing management. PAST MEDICAL HISTORY: Wound as above, congestive heart failure, COPD, type 2 diabetes, hypertension , hyperlipidemia, chronic pain, depression, prostate cancer. PAST SURGICAL HISTORY: Multiple back surgeries, prostatectomy. CURRENT MEDICATIONS: Vancomycin 1 g IV q.12 hours, Lyrica 75 mg p.o. at bedtime, NicoDerm CQ 21 mg patch applied daily, Remeron 15 mg p.o. at bedtime, Lovenox 40 mg subcu daily, Lasix 20 mg p.o. en y, clobetasol cream applied to lower extremities twice daily, aspirin 81 mg p.o. daily. ALLERGIES: No known drug allergies. SOCIAL HISTORY: The patient smokes 4 to 5 cigarettes daily and has smoked since age 18; no alcohol or drug use. He lives independently with long-term assistance. FAMILY HISTORY: Mother with breast cancer; father several days ago from old age. REVIEW OF SYSTEMS: Outside that noted in the HPI, the remainder of a 10-system review was unremarka ble. PHYSICAL EXAMINATION: VITAL SIGNS: Temperature 37.0, heart rate 94, respiratory rate 18, blood pre ssure 143/73, oxygen saturation 89% on room air. GENERAL: The patient is well nourished, well deve loped, in no acute distress. He appears nontoxic. HEENT: There is no scleral icterus, conjunctiva l injection, or conjunctival petechiae. Oropharynx clear without lesions. He is edentulous. Mucou s membranes are moist. There is no nasal discharge. There is no tenderness over the frontal, maxil francis, or mastoid area. NECK: Supple without lymphadenopathy or palpable thyromegaly. CHEST: Mavis r to auscultation bilaterally without adventitious sounds. Respiratory effort is normal. CARDIOVAS CULAR: Regular rate and rhythm without murmurs, gallops, or rubs. ABDOMEN: Soft, nontender, nondi stended. There is no palpable organomegaly. Bowel sounds are present. MUSCULOSKELETAL: There is no cyanosis or clubbing. There is 1+ lower extremity edema bilaterally. SKIN: There are venous st asis changes over both lower extremities with lichenified skin. The upper lumbar region has an appr oximately 8 cm diameter decubitus ulceration with some undermining present without surrounding cellu litis or purulence. LYMPHATICS: There are no cervical or supraclavicular nodes. NEUROLOGICAL: Th e patient is alert and interacts appropriately with the examiner. Cranial nerves 2 through 12 are g rossly intact. LABORATORY DATA: White blood cell count 7.4, hematocrit 34.4, platelets 162, neutrophils 72%. Seru m creatinine is 0.7, AST 64, ALT 25, bilirubin 0.7, albumin 3.0. Blood cultures with 2 of 2 sets sh owing Corynebacterium aurimucosum and 1 of 2 sets with Staphylococcus haemolyticus; back wound cultu re with growth of MSSA. IMPRESSION: Corynebacteria bacteremia: Difficult to distinguish if this represents true bacteremia versus contamination. Given both sets of blood cultures are positive, as well as a chronic skin wo und with no other identified etiology for the patient's presentation, we will treat as if true bacte remia with 7 days of vancomycin. We will have Surgery evaluate chronic decubitus ulceration given t hat this has persisted for now over a 4-month period. RECOMMENDATIONS: 1. Agree with vancomycin 1 g IV q.12 hours with plans for 7 days of treatment provided repeat blood cultures are negative. 2. We will have Surgery evaluate for further care of decubitus ulceration. 3. Follow up repeat blood cultures as available. Thank you for this consultation. We will continue to follow the patient with you. /[id number]/MODL
[2016-09-18] MEDS: morphINE SR 100 MG TAB PO PRN (23:17)
[2016-09-19] MEDS: IPRATROPIUM/ALBUTEROL 3 ML DEYVIAL IH SCH ×6 (02:52→21:15)
[2016-09-19] MEDS: VANCOMYCIN HCL/NORMAL SALINE 250 ML IV SCH (05:57)
[2016-09-19 06:28] LABS: % IMMATURE GRANULYOCYTES 0.1 % (0.0-1.1); ABSOLUTE IMMATURE GRANULOCYTES 0.01 10^3/uL (0.00-0.10); ADD DIFF? NO; ADD MORPH? NO; ADD SCAN? NO; ATYPICAL LYMPHOCYTE FLAG 10 (0-99); FRAGMENT RBC FLAG 0 (0-99); HEMATOCRIT 33.7 % (40.0-51.0); HEMOGLOBIN 10.8 g/dL (13.7-17.5); LEFT SHIFT FLG 0 (0-99); LIPEMIA HEMOLYSIS FLAG 80 (0-99); MEAN CELL HEMOGLOBIN 28.6 pg (27.9-34.1); MEAN CELL VOLUME 89.2 fL (81.5-99.8); MEAN PLATELET VOLUME 10.6 fL (8.7-11.7); PLATELET CLUMPS FLAG 0 (0-99); PLATELET COUNT 160 10^3/uL (150-400); RED BLOOD CELL COUNT 3.78 10^6/uL (4.40-6.38); RED CELL DISTRIBUTION WIDTH 15.4 % (11.5-15.2)
[2016-09-19] MEDS: ERYTHROMYCIN 0.5% 1 GM OPHT.OINT EACHEYE SCH ×4 (06:30→22:11)
[2016-09-19 06:33] LABS: ANION GAP 10 mEq/L (8-16); CALCIUM 8.4 mg/dL (8.5-10.4); CARBON DIOXIDE 23 mEq/l (22-31); CHLORIDE 109 mEq/L (97-110); CREATININE 0.7 mg/dL (0.7-1.3); GLOMERULAR FILTRATION RATE > 60; GLUCOSE 81 mg/dL (70-100); POTASSIUM 4.1 mEq/L (3.5-5.2); SODIUM 142 mEq/L (134-144)
[2016-09-19] MEDS: ENOXAPARIN 40 MG/0.4 ML SYR SC SCH (07:56)
[2016-09-19] MEDS: ACETAMINOPHEN 325 MG TAB PO PRN ×2 (07:56→18:08)
[2016-09-19] MEDS: ASPIRIN EC 81 MG TAB PO SCH (07:57)
[2016-09-19] MEDS: POLYETHYLENE GLYCOL 3350 17 GM PKT PO PRN (07:57)
[2016-09-19] MEDS: CLOBETASOL 0.05% 15 GM CRTUBE TP SCH ×2 (07:58→22:11)
[2016-09-19] MEDS: NICOTINE 21 MG/24 HR PATCH TD SCH (07:58)
[2016-09-19] MEDS: FUROSEMIDE 20 MG TAB PO SCH (08:04)
--- NOTE | 2016-09-19 09:15 | PCMIDPN ---
Assessment/Plan: Assessment/Plan: 1. Corynebacterium bacteremia: - possible source could be #2 - Currently on Vanco. -vanco trough prior to 4th doses is at 14.0. Will change to daily dosing as will likely accumulate further. -Creatinine stable at 0.7. Wbc stable. - f/u blood cx from 09/18 pending -Reviewed plan of care with patient. 2. Chronic back wound: - wound cx showing MSSA at present - Case discussed with surgical team today. Appreciate their eval/care -Wound care note reviewed. -Continue with wound care Meds Vanco 1g q12- Subjective: Afebrile. Feels better. He doesn't feel like he has an infection he tells me. He wants to be able to go home soon. He is on O2 at 2L. He normally wears O2 at night at 2L and intermittently during day as needed. Denies sob, cough, sputum production. Denies abd pain or diarrhea. He is having normal bowel movement. He tells me that he normally sleeps in a recliner due to sob with laying flat and the wound. He does try to sleep on his side. Objective: Vital Signs Temp Pulse Resp BP Pulse Ox 37.2 C 87 17 137/73 H 89 L 09/19/16 07:47 09/19/16 07:47 09/19/16 07:47 09/19/16 07:47 09/19/16 07:47 Laboratory Results 09/19/16 04:30 09/19/16 04:30 09/18/16 09/19/16 09/20/16 05:59 05:59 05:59 Intake Total 184 857 3258 Output Total 540 350 400 Balance -40 600 675 - Physical Exam General Appearance: alert, no apparent distress Respiratory: lungs clear Cardiac/Chest: regular rate, rhythm Extremities: No swelling (compression socks on at present) Abdomen: normal bowel sounds, non-tender, soft, No distended Back: other (moderate sized wound: mostly with granulation tissue base, small areas of patchy slough. no surrounding erythema.) Skin: other (see above) ICD10 Worksheet Patient Problems: Problems Problem Status Onset Altered mental status Acute Aspiration pneumonia Acute COPD (chronic obstructive pulmonary disease) Acute DM type 1 (diabetes mellitus, type 1) Acute Lumbosacral radiculopathy at L5 Acute Narcotic dependency, continuous Acute Renal failure Acute Severe sepsis with septic shock Acute Spinal stenosis, lumbar Acute Tobacco dependence Acute
--- NOTE | 2016-09-19 09:32 | HOSPPROG ---
Hospitalist Progress Note Assessment/Plan: DIAGNOSES: # SACRAL DECUBITUS PRESSURE INJURY, POA, WITH WOUND INFECTION # ACUTE CORYNEBACTERIUM BACTEREMIA, SUSPECT SOURCE IS WOUND # Acute encephalopathy due to above, and likely also to medications # Acute on Chronic Respiratory Failure with Hypoxemia; Possible aspiration pneumonia. # Atelectasis. # Chronic diastolic CHF. No e/o acute exacerbation, # Nicotine dependence. Cessation recommended/ nicotine patch # DM2. No home monitoring, no significant hyperglycemia, stop ISS # Chronic hypertension. Cont home Rx # Chronic pain w/ continuous opiate dependency. 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, reports he has plenty of home Rx and does not need refill PLANS: Continue current antibiotics Will review with Infectious Disease duration of antibiotics considering that we are now treating jessica bacterium from a wound as well as the staff but presumably 7 days Decubitus prevention measures Surgery and Wound Care to evaluate decubitus ulcer Continue oxygen and blood sugar monitoring SUBJECTIVE: States he feels better so far today not confused eating well not sob on O2 little pain OBJECTIVE Vitals reviewed:stable without fever Youth Agent, my review: Exam: alert oriented skin warm dry color ok resps not labored lungs clear BSs heart regular abd soft nondistended nontender, bowel sounds present limbs warm, no edema iv site ok Laboratory data: Blood sugars well controlled Slight drop in Hg WOUND CULTURES: now with Corynebacterium in 2/2 bottles first set, second set pending BLOOD CULTURES: MSSA growing so far Objective: Vital Signs Temp Pulse Resp BP Pulse Ox 37.2 C 87 17 137/73 H 89 L 09/19/16 07:47 09/19/16 07:47 09/19/16 07:47 09/19/16 07:47 09/19/16 07:47 Laboratory Results 09/19/16 04:30 09/19/16 04:30 09/18/16 09/19/16 09/20/16 06:59 06:59 06:59 Intake Total 500 5 Output Total 540 750 Balance -40 1275 PT 13.9 SEC (12.0-15.0) 09/16/16 17:00 INR 1.08 (0.83-1.16) 09/16/16 17:00 ICD10 Worksheet Patient Problems: Problems Problem Status Onset Altered mental status Acute Aspiration pneumonia Acute COPD (chronic obstructive pulmonary disease) Acute DM type 1 (diabetes mellitus, type 1) Acute Lumbosacral radiculopathy at L5 Acute Narcotic dependency, continuous Acute Renal failure Acute Severe sepsis with septic shock Acute Spinal stenosis, lumbar Acute Tobacco dependence Acute
--- NOTE | 2016-09-19 14:17 | WOCRNPDOC ---
WOCRN Advanced Assessment Note - Skin Integrity Problem, Advanced Assess Lower Back Pressure Injury Dressing Type: Allevyn Life, Hydrofera Blue Dressing Description: Clean/Dry, Intact Exudate Amount: Minimal Exudate Color: Reddish/Yellow Exudate Characteristic(s): Serosanguinous Integumentary Issue Intervention: Visualized Under Dressing Monty Wound Tissue: Erythema (mild), Macerated (immediate monty-wound tissue) Monty Wound Swelling: None Wound Bed Color: Red, Yellow Wound Bed Constitution: Granulation Tissue (85%), Loose Slough (15%) Wound Edges: Not Attached, Epibole Site Odor: None Pressure Injury Stage: Stage 3 Pressure Injury Present on Admit: Yes Skin Integrity Problem Comment: Full-thickness wound on lower back, consistent in appearance with stage III pressure injury. Wound bed is comprised of mostly granulation tissue, w/ loose slough noted. There is significant epibole from 10 o'clock to 2 o'clock, which is preventing epithelialization of this wound. Recommend a surgical consultation outpatient to open this edge. Continue w/ existing tx of Hydrofera Blue Ready and Allevyn. Report given to service coordinator Janie. Right Ankle Venous Stasis Ulcer Dressing Type: Hydrocolloid (duo derm) Dressing Description: Intact Exudate Amount: Scant Exudate Color: Clear Exudate Characteristic(s): Serous Integumentary Issue Intervention: Dressing Removed Monty Wound Tissue: Venous Dermatitis, Xerotic Monty Wound Swelling: None Wound Bed Constitution: Smooth Tissue Wound Edges: Irregular Site Odor: None Skin Integrity Problem Comment: Removed existing dressing to assess. Wound is epithelializing along margins. Monty-wound is extremely xerotic w/ significant venous dermatitis. Patient will need ongoing compression therapy in the outpatient setting. Sent Size E tubigrip stockings to service coordinator Janie to apply after patient's shower.
--- NOTE | 2016-09-19 19:13 | GPN ---
DATE OF PROCEDURE: 09/19/2016 PREOP DIAGNOSIS: Lumbar wound, chronic. POSTOP DIAGNOSIS: Lumbar wound, chronic. ANESTHESIA: None. PROCEDURE PERFORMED: Excisional debridement of skin and soft tissue of lumbar wound. INDICATION: The patient is a 71-year-old man, who developed a wound on his back several months ago. He thinks that he bumped it against a cabinet and the wound worsened from that time. He presented to the emergency room and was found to have bacteremia with Carinae bacteria. He is currently rece iving IV antibiotics. He has a home care nurse coming to his house 3 times weekly for wound care. We were asked to evaluate the wound for excisional debridement. DESCRIPTION OF PROCEDURE: He verbally consented for the procedure. A timeout was performed. The a christian was prepped in the usual sterile fashion and then infiltrated with 5 cc of 1% lidocaine with epi nephrine. I then excised the superior rim of the wound, which was undermining. Hemostasis was achieved with el ectrocautery, as well as Winter. The lot number is [id number], expiration 09/19/2020. I then reapplied Hydrofera Blue Ready and an Allevyn bandage. The final wound dimensions were 6 x 4 x 0.8 cm with 10 0% granulation tissue in the base. He tolerated the procedure well. We will continue to follow through this admission. /[id number]/MODL
[2016-09-19] MEDS: PREGABALIN 75 MG CAP PO SCH (21:34)
[2016-09-19] MEDS: morphINE SR 100 MG TAB PO PRN (21:34)
[2016-09-19] MEDS: MIRTAZAPINE 15 MG TAB PO SCH (21:34)
[2016-09-20] MEDS ORDERED: LIDOCAINE 1% *Not for Epidural 20 ML MDV NB ONE (00:45)
[2016-09-20] MEDS: IPRATROPIUM/ALBUTEROL 3 ML DEYVIAL IH SCH ×5 (04:12→19:53)
[2016-09-20] MEDS: ERYTHROMYCIN 0.5% 1 GM OPHT.OINT EACHEYE SCH ×4 (05:08→20:06)
[2016-09-20 05:59] LABS: HEMATOCRIT 32.4 % (40.0-51.0); HEMOGLOBIN 10.2 g/dL (13.7-17.5)
[2016-09-20 06:05] LABS: INR 1.15 (0.83-1.16); PROTIME(PATIENT) 14.6 SEC (12.0-15.0)
[2016-09-20] MEDS: POLYETHYLENE GLYCOL 3350 17 GM PKT PO PRN (08:03)
[2016-09-20] MEDS: NICOTINE 21 MG/24 HR PATCH TD SCH (08:04)
[2016-09-20] MEDS: ACETAMINOPHEN 325 MG TAB PO PRN (08:04)
[2016-09-20] MEDS: FUROSEMIDE 20 MG TAB PO SCH (08:05)
[2016-09-20] MEDS: ASPIRIN EC 81 MG TAB PO SCH (08:05)
[2016-09-20] MEDS: ENOXAPARIN 40 MG/0.4 ML SYR SC SCH (08:05)
[2016-09-20] MEDS ORDERED: VANCOMYCIN HCL/NORMAL SALINE 250 ML IV SCH (09:00)
[2016-09-20] MEDS: CLOBETASOL 0.05% 15 GM CRTUBE TP SCH ×2 (10:13→20:06)
--- NOTE | 2016-09-20 12:50 | SOAPPROG ---
SOAP Progress Note Assessment/Plan: Assessment: 71 yo M s/p excisional debridement of chronic lumbar wound on 09/19 Bleeding stopped Pain controlled Would clean and dry Change dressing PRN [facility] PRN Objective: Vital Signs Temp Pulse Resp BP Pulse Ox 37.1 C 83 18 139/70 H 95 09/20/16 07:37 09/20/16 09:20 09/20/16 09:20 09/20/16 07:37 09/20/16 09:20 Laboratory Results 09/20/16 04:17 09/19/16 04:30 09/19/16 09/20/16 09/21/16 05:59 05:59 05:59 Intake Total 950 1275 200 Output Total 350 1100 Balance 600 175 200 PT 14.6 SEC (12.0-15.0) 09/20/16 04:17 INR 1.15 (0.83-1.16) 09/20/16 04:17 ICD10 Worksheet Patient Problems: Problems Problem Status Onset Altered mental status Acute Aspiration pneumonia Acute COPD (chronic obstructive pulmonary disease) Acute DM type 1 (diabetes mellitus, type 1) Acute Lumbosacral radiculopathy at L5 Acute Narcotic dependency, continuous Acute Renal failure Acute Severe sepsis with septic shock Acute Spinal stenosis, lumbar Acute Tobacco dependence Acute
--- NOTE | 2016-09-20 14:29 | HOSPPROG ---
Hospitalist Progress Note Assessment/Plan: DIAGNOSES: # SACRAL DECUBITUS PRESSURE INJURY, POA, WITH WOUND INFECTION # ACUTE CORYNEBACTERIUM BACTEREMIA, SUSPECT SOURCE IS WOUND # Acute encephalopathy due to above, and likely also to medications # Acute on Chronic Respiratory Failure with Hypoxemia; Possible aspiration pneumonia. # Atelectasis. # Chronic diastolic CHF. No e/o acute exacerbation, # Nicotine dependence. Cessation recommended/ nicotine patch # DM2. No home monitoring, no significant hyperglycemia, stop ISS # Chronic hypertension. Cont home Rx # Chronic pain w/ continuous opiate dependency. 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, reports he has plenty of home Rx and does not need refill PLANS: Continue current antibiotics Will review with Infectious Disease duration of antibiotics considering that we are now treating jessica bacterium from a wound as well as the staff but presumably 7 days Decubitus prevention measures Surgery and Wound Care to evaluate decubitus ulcer Continue oxygen and blood sugar monitoring SUBJECTIVE: States he feels better so far today not confused eating well not sob on O2 little pain OBJECTIVE Vitals reviewed:stable without fever Uptwist Spinner, my review: Exam: alert oriented skin warm dry color ok resps not labored lungs clear BSs heart regular abd soft nondistended nontender, bowel sounds present limbs warm, no edema iv site ok Laboratory data: Blood sugars well controlled Slight drop in Hg WOUND CULTURES: now with Corynebacterium in 2/2 bottles first set, second set pending BLOOD CULTURES: MSSA growing so far Objective: Vital Signs Temp Pulse Resp BP Pulse Ox 37.1 C 80 16 139/70 H 95 09/20/16 07:37 09/20/16 13:45 09/20/16 13:45 09/20/16 07:37 09/20/16 09:20 Laboratory Results 09/20/16 04:17 09/19/16 04:30 09/19/16 09/20/16 09/21/16 06:59 06:59 06:59 Intake Total 2024 200 200 Output Total 750 700 Balance 1275 -500 200 PT 14.6 SEC (12.0-15.0) 09/20/16 04:17 INR 1.15 (0.83-1.16) 09/20/16 04:17 ICD10 Worksheet Patient Problems: Problems Problem Status Onset Altered mental status Acute Aspiration pneumonia Acute COPD (chronic obstructive pulmonary disease) Acute DM type 1 (diabetes mellitus, type 1) Acute Lumbosacral radiculopathy at L5 Acute Narcotic dependency, continuous Acute Renal failure Acute Severe sepsis with septic shock Acute Spinal stenosis, lumbar Acute Tobacco dependence Acute
--- NOTE | 2016-09-20 16:37 | HOSPPROG ---
Hospitalist Progress Note Assessment/Plan: DIAGNOSES: # SACRAL DECUBITUS PRESSURE INJURY, POA, WITH WOUND INFECTION # ACUTE POLYMICROBIAL BACTEREMIA, SUSPECT SOURCE IS WOUND # Acute encephalopathy due to above, and likely also to medications # Acute on Chronic Respiratory Failure with Hypoxemia; Possible aspiration pneumonia. # Atelectasis. # Chronic diastolic CHF. No e/o acute exacerbation, # Nicotine dependence. Cessation recommended/ nicotine patch # DM2. No home monitoring, no significant hyperglycemia, stop ISS # Chronic hypertension. Cont home Rx # Chronic pain w/ continuous opiate dependency. 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 Decubitus prevention measures Surgery and Wound Care providing ongoing care for decubitus ulcer Continue oxygen and blood sugar monitoring SUBJECTIVE: Feels much better overall. No pain no shortness of breath no fever symptoms, eating well OBJECTIVE Vitals reviewed: stable without fever Exam: alert oriented skin warm dry color ok resps not labored lungs clear BSs heart regular abd soft nondistended nontender, bowel sounds present limbs warm, no edema iv site ok Laboratory data: Blood sugars well controlled Hemoglobin stable WOUND CULTURES: Corynebacterium in 2/2 bottles first set, second set pending BLOOD CULTURES: MSSA, Corynebacterium, and Strep are growing so far Objective: Vital Signs Temp Pulse Resp BP Pulse Ox 37.3 C 92 17 152/94 H 96 09/20/16 16:28 09/20/16 16:28 09/20/16 16:28 09/20/16 16:28 09/20/16 16:28 Laboratory Results 09/20/16 04:17 09/19/16 04:30 09/19/16 09/20/16 09/21/16 06:59 06:59 06:59 Intake Total 2024 200 200 Output Total 750 700 Balance 1275 -500 200 PT 14.6 SEC (12.0-15.0) 09/20/16 04:17 INR 1.15 (0.83-1.16) 09/20/16 04:17 ICD10 Worksheet Patient Problems: Problems Problem Status Onset Altered mental status Acute Aspiration pneumonia Acute COPD (chronic obstructive pulmonary disease) Acute DM type 1 (diabetes mellitus, type 1) Acute Lumbosacral radiculopathy at L5 Acute Narcotic dependency, continuous Acute Renal failure Acute Severe sepsis with septic shock Acute Spinal stenosis, lumbar Acute Tobacco dependence Acute
--- NOTE | 2016-09-20 18:36 | PCMIDPN ---
Assessment/Plan: Assessment/Plan: * Corynebacterium bacteremia likely associated with chronic lumbar wound: Repeat debridement of wound by surgical service with marked improvement in wound bed appearance. Plan 7 days of vancomycin (day 3/7). Okay for patient to complete this as an outpatient - favor use of peripheral IV given that he will only need 3 days of therapy post discharge. Reassess vancomycin trough in a.m. prior to discharge. 09/20/16 18:34 Subjective: Patient feels well. Status post repeat debridement of back wound with removal of undermining regions. Objective: Vital Signs Temp Pulse Resp BP Pulse Ox 37.3 C 92 17 152/94 H 96 09/20/16 16:28 09/20/16 16:28 09/20/16 16:28 09/20/16 16:28 09/20/16 16:28 Laboratory Results 09/20/16 04:17 09/19/16 04:30 09/19/16 09/20/16 09/21/16 05:59 05:59 05:59 Intake Total 950 1275 200 Output Total 350 1100 550 Balance 600 175 -350 Vancomycin # 3 Blood cultures 09/18/2016 no growth - Physical Exam General Appearance: alert, no apparent distress EENT: No scleral icterus, No conjunctival petechiae Respiratory: lungs clear, No respiratory distress Cardiac/Chest: regular rate, rhythm, No systolic murmur Back: other (Pressure ulceration over lumbar region with healthy tissue throughout and no surrounding erythema; no purulence) ICD10 Worksheet Patient Problems: Problems Problem Status Onset Altered mental status Acute Aspiration pneumonia Acute COPD (chronic obstructive pulmonary disease) Acute DM type 1 (diabetes mellitus, type 1) Acute Lumbosacral radiculopathy at L5 Acute Narcotic dependency, continuous Acute Renal failure Acute Severe sepsis with septic shock Acute Spinal stenosis, lumbar Acute Tobacco dependence Acute
--- NOTE | 2016-09-20 18:39 | PDIAF ---
- Diagnosis Diagnosis: Bacteremia Code Status: Full Code - Medication Management Discharge Medications: Medications to Continue on Transfer Aspirin EC [Aspirin EC 81 mg (*)] 81 mg PO DAILY 06/06/16 [Last Taken 09/16/16 08:00] Polyethylene Glycol 3350 [Miralax 17 gm (*)] 17 gm PO DAILY PRN 06/06/16 [Last Taken 09/15/16] Albuterol [Proventil Inhaler HFA (*)] 2 puffs IH Q4HRS PRN #0 mdi 06/10/16 [ Last Taken 09/16/16 15:00] Clobetasol 0.05% [Temovate Cream] 1 chintan TP BID #0 cream 06/10/16 [Last Taken 08:00] Nicotine [Nicoderm Cq 21 mg (*)] 21 mg TD DAILY #0 patch 06/10/16 [Last Taken 08:00] Furosemide [Lasix 20 MG (*)] 20 mg PO DAILY 09/16/16 [Last Taken 09/16/16 08:00] Mirtazapine 15 mg PO HS 09/16/16 [Last Taken 09/15/16 20:00] Morphine Sulfate [Morphine Sulfate ER] 200 mg PO DAILY 09/16/16 [Last Taken 15:00] Pregabalin [Lyrica 75mg (*)] 75 mg PO HS 09/16/16 [Last Taken 09/14/16] Body Make Up Artist Antibiotics: Vancomycin 1 g IV Q 24 hours Fpc Antibiotic Stop Date: 09/24/16 Discharge Medications: Refer to the Discharge Home Medication list for PRN reason. PICC Care - Routine: N/A - Labs/Radiology Call or Fax Lab and Imaging Results to: No lab data needed - Follow Up Care Current Providers and Referrals: [facility] [Other] - As per Instructions
[2016-09-20] MEDS ORDERED: IPRATROPIUM/ALBUTEROL 3 ML DEYVIAL IH PRN (20:07)
[2016-09-20] MEDS: morphINE SR 100 MG TAB PO PRN (21:30)
[2016-09-20] MEDS: PREGABALIN 75 MG CAP PO SCH (21:30)
[2016-09-20] MEDS: MIRTAZAPINE 15 MG TAB PO SCH (21:30)
[2016-09-21] MEDS: ERYTHROMYCIN 0.5% 1 GM OPHT.OINT EACHEYE SCH (05:35)
[2016-09-21 05:47] LABS: ANION GAP 6 mEq/L (8-16); CALCIUM 8.8 mg/dL (8.5-10.4); CARBON DIOXIDE 26 mEq/l (22-31); CHLORIDE 108 mEq/L (97-110); CREATININE 0.7 mg/dL (0.7-1.3); GLOMERULAR FILTRATION RATE > 60; GLUCOSE 87 mg/dL (70-100); POTASSIUM 4.4 mEq/L (3.5-5.2); SODIUM 140 mEq/L (134-144)
[2016-09-21 07:40] VITALS: BP 145/80; PULSE 78; RESP 17; TEMP 98.5; O2SAT 91
--- NOTE | 2016-09-21 10:07 | SOAPPROG ---
SOAP Progress Note Assessment/Plan: Assessment: s/p Excisional debridement of lumbar pressure wound. Yasmeen and Alevyn in 3 times per week. home care to change dressing follow up with [facility] 2 weeks continue offloading S: he is doing well o: the dressing was intact and so I did not change it today Plan: 09/21/16 10:06 Objective: Vital Signs Temp Pulse Resp BP Pulse Ox 36.9 C 78 17 145/80 H 91 L 09/21/16 07:39 09/21/16 07:39 09/21/16 07:39 09/21/16 07:39 09/21/16 07:39 Laboratory Results 09/20/16 04:17 09/21/16 04:35 09/20/16 09/21/16 09/22/16 05:59 05:59 05:59 Intake Total 1275 200 Output Total 1100 550 400 Balance 175 -350 -400 PT 14.6 SEC (12.0-15.0) 09/20/16 04:17 INR 1.15 (0.83-1.16) 09/20/16 04:17 ICD10 Worksheet Patient Problems: Problems Problem Status Onset Altered mental status Acute Aspiration pneumonia Acute COPD (chronic obstructive pulmonary disease) Acute DM type 1 (diabetes mellitus, type 1) Acute Lumbosacral radiculopathy at L5 Acute Narcotic dependency, continuous Acute Renal failure Acute Severe sepsis with septic shock Acute Spinal stenosis, lumbar Acute Tobacco dependence Acute
--- NOTE | 2016-09-21 10:44 | PDIAF ---
- Diagnosis Diagnosis: Bacteremia Code Status: Full Code - Medication Management Discharge Medications: Medications to Continue on Transfer Aspirin EC [Aspirin EC 81 mg (*)] 81 mg PO DAILY 06/06/16 [Last Taken 09/16/16 08:00] Polyethylene Glycol 3350 [Miralax 17 gm (*)] 17 gm PO DAILY PRN 06/06/16 [Last Taken 09/15/16] Albuterol [Proventil Inhaler HFA (*)] 2 puffs IH Q4HRS PRN #0 mdi 06/10/16 [ Last Taken 09/16/16 15:00] Clobetasol 0.05% [Temovate Cream] 1 chintan TP BID #0 cream 06/10/16 [Last Taken 08:00] Nicotine [Nicoderm Cq 21 mg (*)] 21 mg TD DAILY #0 patch 06/10/16 [Last Taken 08:00] Furosemide [Lasix 20 MG (*)] 20 mg PO DAILY 09/16/16 [Last Taken 09/16/16 08:00] Mirtazapine 15 mg PO HS 09/16/16 [Last Taken 09/15/16 20:00] Morphine Sulfate [Morphine Sulfate ER] 200 mg PO DAILY 09/16/16 [Last Taken 15:00] Pregabalin [Lyrica 75mg (*)] 75 mg PO HS 09/16/16 [Last Taken 09/14/16] Residential Sales Consultant Antibiotics: Vancomycin 1.5 g IV Q 24 hours Residential Sales Consultant Antibiotic Stop Date: 09/24/16 Discharge Medications: Refer to the Discharge Home Medication list for PRN reason. PICC Care - Routine: N/A - Labs/Radiology Call or Fax Lab and Imaging Results to: No lab data needed - Follow Up Care Current Providers and Referrals: [facility] [Other] - As per Instructions [facility] [Clinic] - ([address] lentz)
[2016-09-21] MEDS ORDERED: VANCOMYCIN 1.5 GM in D5W 250 ML IV SCH (11:00)
[2016-09-21] MEDS: ENOXAPARIN 40 MG/0.4 ML SYR SC SCH (11:12)
[2016-09-21] MEDS: ACETAMINOPHEN 325 MG TAB PO PRN (11:13)
[2016-09-21] MEDS: ASPIRIN EC 81 MG TAB PO SCH (11:13)
[2016-09-21] MEDS: NICOTINE 21 MG/24 HR PATCH TD SCH (11:13)
[2016-09-21] MEDS: POLYETHYLENE GLYCOL 3350 17 GM PKT PO PRN (11:14)
[2016-09-21] MEDS: CLOBETASOL 0.05% 15 GM CRTUBE TP SCH (11:14)
[2016-09-21] MEDS: FUROSEMIDE 20 MG TAB PO SCH (11:16)
--- NOTE | 2016-09-21 11:17 | PDIAF ---
- Diagnosis Diagnosis: Bacteremia, decubitus wound on back Code Status: Full Code - Medication Management Discharge Medications: Medications to Continue on Transfer Aspirin EC [Aspirin EC 81 mg (*)] 81 mg PO DAILY 06/06/16 [Last Taken 09/16/16 08:00] Polyethylene Glycol 3350 [Miralax 17 gm (*)] 17 gm PO DAILY PRN 06/06/16 [Last Taken 09/15/16] Albuterol [Proventil Inhaler HFA (*)] 2 puffs IH Q4HRS PRN #0 mdi 06/10/16 [ Last Taken 09/16/16 15:00] Clobetasol 0.05% [Temovate Cream] 1 chintan TP BID #0 cream 06/10/16 [Last Taken 08:00] Nicotine [Nicoderm Cq 21 mg (*)] 21 mg TD DAILY #0 patch 06/10/16 [Last Taken 08:00] Furosemide [Lasix 20 MG (*)] 20 mg PO DAILY 09/16/16 [Last Taken 09/16/16 08:00] Mirtazapine 15 mg PO HS 09/16/16 [Last Taken 09/15/16 20:00] Morphine Sulfate [Morphine Sulfate ER] 200 mg PO DAILY 09/16/16 [Last Taken 15:00] Pregabalin [Lyrica 75mg (*)] 75 mg PO HS 09/16/16 [Last Taken 09/14/16] Vancomycin [Vancomycin (*)] 1.5 gm IV Q24H #0 vial 09/21/16 [Last Taken Unknown] Steward/Stewardess Third Antibiotics: Vancomycin 1.5 g IV Q 24 hours Steward/Stewardess Third Antibiotic Stop Date: 09/24/16 Discharge Medications: Refer to the Discharge Home Medication list for PRN reason. PICC Care - Routine: N/A - Orders Services needed: Home Care, Registered Nurse Home Care Face to Face: I certify that this patient was under my care and that I had the required [id number] encounter meeting the encounter requirements on the discharge day. My findings support the fact that the patient is homebound as defined in CMS Chapter 7 Medicare Benefits Manual 30.1.1, The condition of the patient is such that there exists a normal inability to leave home and consequently, leaving home would require a considerable and taxing effort. Diet Recommendation: no restrictions on diet Diet Texture: Regular Texture Diet Wound Care Instructions: May shower with dressing off, otherwise keep wound covered with Yasmeen / Allevyn border changed 3 x per week - Labs/Radiology Call or Fax Lab and Imaging Results to: No lab data needed - Follow Up Care Current Providers and Referrals: [facility] [Other] - As per Instructions [facility] [Clinic] - ([address] lentz)
--- NOTE | 2016-09-21 16:21 | PDDCSUM ---
Discharge Summary Discharge Summary: DISCHARGE DIAGNOSES: # SACRAL DECUBITUS PRESSURE INJURY, POA, WITH WOUND INFECTION # ACUTE POLYMICROBIAL BACTEREMIA, SUSPECT SOURCE IS WOUND # Acute encephalopathy due to above in addition to medications # Acute on Chronic Respiratory Failure with Hypoxemia resolved # Atelectasis. # Chronic diastolic CHF. No e/o acute exacerbation, # Nicotine dependence. Cessation recommended/ nicotine patch # DM2. # Chronic hypertension. # Chronic pain w/ continuous prescribed opiate dependency CONSULTANTS: Dr. Giana Platt PROCEDURES: Incision and debridement of pressure wound on his back HOSPITAL COURSE SUMMARY: Patient who has multiple chronic medical problems came in with fever and acute confusional state. He was found to have a polymicrobial bacteremia likely due to a large decubitus ulcer in his back that was fairly deep. Cultures of wound and blood cultures grew the jessica bacterium, Staph aureus, a non hemolytic strep, and Staphylococcus haemolyticus. He was treated here with wound care and IV antibiotics with vancomycin. He actually recovered from these issues quite nicely with complete resolution of his acute confusion and fevers. He is at this point with no pain, eating well, ambulating well and is stable for discharge to home. The current plan is for 7 days of total antibiotic therapy and he will be getting home IV vancomycin. There was some mild acute on chronic respiratory failure and there was initially some concern for possible aspiration but the patient did not have any difficulty swallowing here with good results on swallow evaluations. Other chronic medical issues remained in good control here. MEDICATION CHANGES: Addition of IV vancomycin FOLLOW-UP PLAN: He has home nursing care for home IV and wound care set up He will follow up with Dr. Giana Platt in the [facility] in 2 weeks Will follow up with Dr. Zhao Mcguire and the [facility] in 5 days Greater than 35 minutes bedside and care coordination time today
--- NOTE | 2016-09-25 22:52 | GCON ---
DATE OF CONSULTATION: 09/19/2016 REASON FOR CONSULTATION: Chronic wound back. HISTORY OF PRESENT ILLNESS: The patient is a 71-year-old diabetic man who developed a wound on his lumbar back. He reports that he scraped it on a cabinet and it developed into a large wound. He li ves independently and is not bed bound. He does not use a wheelchair. He was hospitalized with eileen teremia and the wound was thought to be the underlying source. He has regular wound care at home se veral times per week. PAST MEDICAL HISTORY: Congestive heart failure, COPD, type 2 diabetes, hypertension, hyperlipidemia , chronic pain, depression, prostate cancer. PAST SURGICAL HISTORY: Multiple back surgeries, prostatectomy. ALLERGIES: No known drug allergies. SOCIAL HISTORY: He lives independently and has home care for dressing changes. He is a smoker. He denies alcohol or recreational drug use. FAMILY HISTORY: Mother with breast cancer. REVIEW OF SYSTEMS: A 10-point review of systems negative aside from HPI. PHYSICAL EXAMINATION: GENERAL: Well-developed, well-nourished man, in no acute distress. HEENT: Normocephalic, atraumatic. No hearing deficits. Pupils equal and round. No scleral icterus. Muco us membranes moist. NECK: Trachea midline. RESPIRATORY: No increased work of breathing. CARDIOV ASCULAR: No peripheral edema. SKIN: The upper lumbar wound is approximately 6 cm in diameter with of the superficial edge. There is healthy granulation tissue in the base. No surroundi ng erythema, drainage, or other evidence of infection. In addition, he has evidence of venous stasi s dermatitis of his bilateral lower extremities. PSYCH: Mood and affect normal. IMPRESSION AND PLAN: The patient is a 71-year-old man with a chronic wound of his lumbar back. We recommend debridement at bedside in order to clean up the wound edges and promote further granulatio n tissue. He agrees to the plan. We will perform bedside debridement and dressing change. He will require home care following this admission for continued wound checks and dressing changes. Please see procedure note for further details. /[id number]/MODL
== END 2016-09-21 16:07 | disposition home health service (06) | DRG 570 ==
LOC: EDUNIT# → F3N 20:29
PROVIDERS: ADMIT Hospitalist; ATTEND Internal Medicine
PROC: 0HB8XZZ Excision of Buttock Skin, External Approach (ICD-10-PCS; principal; 2016-09-19)
DX: L89.153 Pressure ulcer of sacral region, stage 3 (principal); G93.40 Encephalopathy, unspecified; J69.0 Pneumonitis due to inhalation of food and vomit; J96.21 Acute and chronic respiratory failure with hypoxia; R78.81 Bacteremia; E87.5 Hyperkalemia; B95.61 Methicillin susceptible Staphylococcus aureus infection as the cause of diseases classified elsewhere; I87.8 Other specified disorders of veins; I50.32 Chronic diastolic (congestive) heart failure; J44.9 Chronic obstructive pulmonary disease, unspecified; E11.9 Type 2 diabetes mellitus without complications; I10 Essential (primary) hypertension; E78.5 Hyperlipidemia, unspecified; G89.29 Other chronic pain; F11.20 Opioid dependence, uncomplicated; F17.210 Nicotine dependence, cigarettes, uncomplicated; Z99.81 Dependence on supplemental oxygen
CPT/HCPCS: 92507-GN; 92523-GN; 97116-GP; 97161-GP; 97165-GO; 97530-GO; 97530-GP; 97535-GO; G8978-GP-CI; G8979-GP-CI; G8980-GP-CI; G8987-GO-CK; G8988-GO-CI; G9168-GN-CJ; G9169-GN-CH; J0456; J0696; J1650; J3370; Q9967

== ENCOUNTER → 2016-11-28 | Outpatient (CLI) | payer OTHER | LOC: FIMAGING 14:03 | PROVIDERS: ATTEND Family Medicine | DX: M51.36 Other intervertebral disc degeneration, lumbar region (principal); M51.37 Other intervertebral disc degeneration, lumbosacral region; M51.35 Other intervertebral disc degeneration, thoracolumbar region; M51.86 Other intervertebral disc disorders, lumbar region; M51.87 Other intervertebral disc disorders, lumbosacral region; M12.88 Other specific arthropathies, not elsewhere classified, other specified site; M48.06 Spinal stenosis, lumbar region; M48.07 Spinal stenosis, lumbosacral region; M48.05 Spinal stenosis, thoracolumbar region; M99.73 Connective tissue and disc stenosis of intervertebral foramina of lumbar region; M99.72 Connective tissue and disc stenosis of intervertebral foramina of thoracic region; G95.9 Disease of spinal cord, unspecified; G83.4 Cauda equina syndrome; R32 Unspecified urinary incontinence ==

== ENCOUNTER → 2017-02-06 | Outpatient (CLI) | payer OTHER | LOC: FIMAGING 13:31 | PROVIDERS: ATTEND Nurse Practitioner | DX: S32.020A Wedge compression fracture of second lumbar vertebra, initial encounter for closed fracture (principal); S32.030A Wedge compression fracture of third lumbar vertebra, initial encounter for closed fracture; M47.896 Other spondylosis, lumbar region; M51.26 Other intervertebral disc displacement, lumbar region; M48.06 Spinal stenosis, lumbar region; M41.86 Other forms of scoliosis, lumbar region; M16.11 Unilateral primary osteoarthritis, right hip; M51.34 Other intervertebral disc degeneration, thoracic region; M46.94 Unspecified inflammatory spondylopathy, thoracic region; M48.04 Spinal stenosis, thoracic region; Z98.1 Arthrodesis status ==

== ENCOUNTER → 2017-02-21 | Outpatient (CLI) | payer OTHER ==
[~2017-02-21] MED LIST: IOPAMIDOL (ISOVUE-300) 100 ML BTL ONE
== END ==
LOC: FIMAGING 12:16
PROVIDERS: ATTEND Family Medicine
DX: R59.1 Generalized enlarged lymph nodes (principal); K80.20 Calculus of gallbladder without cholecystitis without obstruction; K83.8 Other specified diseases of biliary tract; I25.10 Atherosclerotic heart disease of native coronary artery without angina pectoris; M16.11 Unilateral primary osteoarthritis, right hip; M25.451 Effusion, right hip
CPT/HCPCS: 71260; 74177; Q9967

== ENCOUNTER → 2017-03-07 | Outpatient (CLI) | payer OTHER ==
[~2017-03-07] MED LIST changes: -IOPAMIDOL (ISOVUE-300) 100 ML BTL ONE; +LIDOCAINE 1% 300 MG/30 ML SDV ONE
[2017-03-08 16:31] LABS: FINAL DIAGNOSIS See Comments; MICROSCOPIC DESCRIPTION See Comments
== END ==
LOC: FIMAGING 09:31
PROVIDERS: ATTEND Family Medicine
PROC: 07BJ4ZX Excision of Left Inguinal Lymphatic, Percutaneous Endoscopic Approach, Diagnostic (ICD-10-PCS; principal; 2017-03-07)
DX: R59.0 Localized enlarged lymph nodes (principal)
CPT/HCPCS: 88184-90; 88185-91

== ENCOUNTER → 2017-03-27 | Outpatient (CLI) | payer OTHER, MEDICAID | LOC: FIMAGING 13:56 | PROVIDERS: ATTEND Nurse Practitioner | DX: M50.30 Other cervical disc degeneration, unspecified cervical region (principal); M50.20 Other cervical disc displacement, unspecified cervical region; M48.02 Spinal stenosis, cervical region; M99.71 Connective tissue and disc stenosis of intervertebral foramina of cervical region ==

== ENCOUNTER 2017-04-12 19:41 | Inpatient (IN) | payer OTHER ==
--- NOTE | 2017-04-12 19:57 | EDPHY ---
H & P Time Seen by Provider: 04/12/17 19:48 HPI/ROS: CHIEF COMPLAINT: Weakness, difficulty breathing HISTORY OF PRESENT ILLNESS: 72 year old male arriving from home via EMS for evaluation of difficulty breathing and weakness. His home care nurse stopped by this evening and called EMS. He has been feeling "under the weather" but feels better today. He is usually on 2L home oxygen for CHF. He missed his Benicar dose today, but is not sure why. He endorses occasional cough due to hiatal hernia with associated pain in his stomach. He did not feel he was having trouble breathing today. He endorses feeling lightheaded. He endorses some groin pain. He denies pain or pressure in his chest. He denies vomiting or diarrhea. No recent illness or fever. REVIEW OF SYSTEMS: A 10 point review of systems was performed and is negative with the exception of the elements mentioned in the history of present illness. - Personal History Tetanus Vaccine Date: >10 YRS - Medical/Surgical History PMH: Hypertension, CHF, COPD (on home O2), Diabetes mellitus, Detached retina ( surgical correction x3), Venous stasis ulcers, Anemia, Chronic back pain ( multiple operations), Lumbar stenosis, Rotator cuff tears x3, Depression Hx Asthma: No Hx Chronic Respiratory Disease: No Hx Diabetes: Yes Hx Cardiac Disease: No Hx Renal Disease: No Hx Cirrhosis: No Hx Alcoholism: Yes Hx HIV/AIDS: No Hx Splenectomy or Spleen Trauma: No Other PMH: DM, CHF, wears O2 at night for 8 years - does not know if he has any kind of lung disease. 5 back operations, chronic back pain. 3 rotator cuff tears, 3 eye surgerie (detached retina.) HTN,lumbar stenosis, copd, depression. diab,venouse stasis ulcers, smoker, anemia, falls at home - Social History Smoking Status: Current every day smoker Additional Social History: . [place] in [place] 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 Current daily tobacco use. - Physical Exam Exam: General Appearance: Alert, appears comfortable and is talkative Eyes: Pupils equal and round, no conjunctival pallor or injection ENT, Mouth: Mucous membranes moist Neck: Normal inspection Respiratory: Normal respiratory rate. Rales left base. Cardiovascular: Irregularly irregular tachycardia Gastrointestinal: mild epigastric tenderness. Abdomen is soft. Neurological: A&O, nonfocal exam Skin: Warm and dry, no rash Extremities: 2+ tense pedal edema bilaterally. Nontender Psychiatric: Mood and affect normal Constitutional: Initial Vital Signs Temperature (C) 37.5 C 04/12/17 19:41 Heart Rate 132 H 04/12/17 19:41 Respiratory Rate 22 H 04/12/17 19:41 Blood Pressure 93/55 L 04/12/17 19:41 O2 Sat (%) 85 L 04/12/17 19:41 O2 Delivery Mode Hi-Flow Nasal Cannula O2 (L/minute) 30 Allergies/Adverse Reactions: No Known Allergies Allergy (Unverified 12/26/10 10:34) Home Medications: Medication Instructions Recorded Aspirin EC [Aspirin EC 81 mg (*)] 81 mg PO DAILY 06/06/16 Mirtazapine 15 mg PO HS 09/16/16 Pregabalin [Lyrica 75mg (*)] 75 mg PO TID 09/16/16 Aclidinium [place] [Tudorza 1 puffs IH Q12 04/12/17 Pressair] Olmesartan Medoxomil [Olmesartan 5 mg PO DAILY 04/12/17 Medoxomil] Quetiapine Fumarate [Quetiapine 25 mg PO HS 04/12/17 Fumarate] morphINE SR [Ms Contin/Oramorph 100 mg PO TID 04/12/17 100 mg (*)] oxyCODONE IR [Oxycodone Ir (*)] 30 mg PO Q4 PRN 04/12/17 Medical Decision Making - Diagnostics EKG Interpretation: EKG interpreted by me reveals atrial fibrillation, rate 134, Interpretation: atrial fibrillation. Imaging Results: Chest X-Ray 04/12/17 20:04 Impression: Hypoventilatory features with cardiomegaly, peribronchial thickening and mild pulmonary vascular congestion, and bibasilar airspace disease. Imaging: Discussed imaging studies w/ data collection specialist Radiologist, I viewed and interpreted images myself ED Course/Re-evaluation: This patient presents in rapid atrial fibrillation, with a blood pressure in the 90s. The clinical history is difficult to obtain and is unclear whether he has a CHF exacerbation or whether he may have pneumonia. He is surprisingly asymptomatic. Main PE finding is hypoxia, also has mild epig tenderness. Chest x-ray reveals pulmonary vascular congestion as well as by basilar infiltrates, possibly bilateral lower lobe pneumonia. Blood pressure decreased to 83/53. Given that he may have congestive heart failure, and has a large oxygen requirement, I will give him gentle IV fluids but will not provide fluids per the sepsis protocol. I think that 30mg/kg IVF would seriously compromise his respiratory status. Blood cultures were drawn and serum lactate ordered. Levaquin 750 mg IV ordered. BP 90/60, HR 127, atrial fibrillation. 8:30pm: BNP and troponin elevated, consistent with congestive heart failure and acute coronary syndrome. The patient's blood pressure is in the 70s and heart rate is in the 120s. It is unclear whether the atrial fibrillation, with a heart rate in the 120s, is causing the hypotension. I consulted Dr. Noe Sams for consideration of cardioversion. In the meantime, dopamine was ordered. The patient remains relatively asymptomatic and is sitting up and talking with us. Dr. Sams will come into the emergency department to see the patient. The patient was seen by Dr. Sams in the emergency department. The patient declined cardioversion. For tonight, Dr. Sams suggests that if the patient's blood pressure is less than 90, we will start dopamine. If his blood pressure tolerates, we will give small doses of diltiazem. The hospitalist service was consulted for admission. Heparin per wt-based protocol initiated. 9:50pm: SBP 70's, dopamine started. After starting the dopamine the patient's heart rate went to 190s. The dopamine was discontinued. The patient has blood pressure dropped to the 80s. The risks and benefits of cardioversion were discussed with the patient and he is now consents to cardioversion. Versed 2 mg IV x 2 given. Cardioversion 100 joules given with no success. Cardioversion with 200 joules was also unsuccessful. Patient's heart rate was in the 140s and he had episodes of either SVT with aberrancy or V-tach. Repeat EKG revealed SVT, rate 190s. Amiodarone 150 mg IV given, followed by an amiodarone drip. After this, the patient stabilized. Heart rate in the 100s, blood pressure 96/71, O2 sat 93%. Dr. Sams consulted again; requests Amiodarone 150mg IV bolus (2nd bolus) and Dr. Sams will return to the ED for further attempts at cardioversion. 360J x 2 unsuccessful, remains in Afib with a rate 90-100, SBP 100's. The pt tolerated the procedure well, has no new c/o. Discussion with Dr. Sams/hospitalist re central line placement. Given pt improved on Amiodarone drip, SBP 90's-100's, on Heparin drip, etiology likely cardiac, will not place central line now. Critical Care Time: Critical care time by me 75 minutes exclusive of unbundled procedures. Time spent in direct pt care, consultations, discussions with family. organ at risk : cardiopulmonary - Data Points Laboratory Results: Laboratory Results 04/12/17 19:50 04/12/17 19:50 04/12/17 04/12/17 19:50 19:50 D-Dimer 5.22 ug/mLFEU H ug/mLFEU (0.00-0.50) TSH 1.500 uIU/mL uIU/mL (0.465-4.680) Medications Given: Albuterol (Ventolin Hfa Inhaler) 4 puffs IH Q4H [facility] Stop: 10/10/17 02:59 Last Admin: 04/13/17 07:52 Dose: Not Given Hydrocortisone (Solucortef) 50 mg IVP Q6HRS [facility] Stop: 10/10/17 05:59 Last Admin: 04/13/17 08:35 Dose: 50 mg Heparin Sodium (Porcine) (Heparin 50 Units/Ml (Premix)) 500 mls @ 0 mls/hr IV CONT BRITTANY; Per Protocol PRN Reason: Protocol Stop: 10/09/17 22:29 Last Admin: 04/12/17 22:30 Dose: 500 mls Amiodarone HCl 540 mg/ (Dextrose) 300 mls @ 16.667 mls/hr IV ONCE@0430 ONE Stop: 04/13/17 22:29 Last Admin: 04/13/17 03:49 Dose: 300 mls Cefepime HCl 2 gm/ Dextrose 100 mls @ 200 mls/hr IV Q24H BRITTANY PRN Reason: Protocol Stop: 05/13/17 00:59 Last Admin: 04/13/17 00:00 Dose: 100 mls Vancomycin/Sodium Chloride (Vancomycin 1 Gm (Premix)) 250 mls @ 250 mls/hr IV Q24H [facility]ITTANY Stop: 05/13/17 00:29 Last Admin: 04/13/17 02:54 Dose: 250 mls Thiamine HCl 100 mg/ Sodium (Chloride) 101 mls @ 202 mls/hr IV DAILY [facility] Stop: 10/10/17 03:44 Last Admin: 04/13/17 08:13 Dose: 101 mls Ascorbic Acid 1,500 mg/ (Dextrose) 103 mls @ 206 mls/hr IV Q6H [facility] Stop: 04/16/17 22:29 Last Admin: 04/13/17 05:00 Dose: 103 mls Insulin Human Regular (Humulin R) 0 unit SC Q6H [facility]ITTANY PRN Reason: Protocol Stop: 10/10/17 03:29 Last Admin: 04/13/17 06:10 Dose: Not Given Nicotine (Nicoderm Cq) 21 mg TD DAILY [facility] Stop: 10/09/17 23:44 Last Admin: 04/13/17 03:50 Dose: Not Given Discontinued Medications Acetaminophen (Tylenol) 650 mg PO EDNOW ONE Stop: 04/12/17 20:30 Last Admin: 04/12/17 20:46 Dose: 650 mg Heparin Sodium (Porcine) (Heparin Injection) 0 unit IVP EDNOW ONE PRN Reason: Protocol Stop: 04/12/17 20:59 Last Admin: 04/12/17 21:08 Dose: 5,000 units Levofloxacin/Dextrose (Levaquin 750 Mg (Premix)) 150 mls @ 100 mls/hr IV EDNOW ONE PRN Reason: Protocol Stop: 04/12/17 21:54 Last Admin: 04/12/17 20:47 Dose: 150 mls Sodium Chloride (Ns) 500 mls @ 1,000 mls/hr IV EDNOW ONE PRN Reason: Protocol Stop: 04/12/17 20:58 Last Admin: 04/12/17 20:46 Dose: 500 mls Dopamine HCl/Dextrose (Dopamine 1600 Mcg/Ml (Premix)) 250 mls @ 0 mls/hr IV EDNOW ONE; Titrate PRN Reason: Protocol Stop: 04/12/17 20:45 Last Admin: 04/12/17 21:41 Dose: 250 mls Heparin Sodium (Porcine) (Heparin 50 Units/Ml (Premix)) 500 mls @ 0 mls/hr IV EDNOW ONE; Per Protocol PRN Reason: Protocol Stop: 04/12/17 20:59 Last Admin: 04/12/17 21:09 Dose: 500 mls Amiodarone HCl (Amiodarone Hcl) 100 mls @ 600 mls/hr IV ONCE ONE Stop: 04/12/17 22:14 Last Admin: 04/12/17 22:06 Dose: 100 mls Amiodarone HCl (Amiodarone Hcl) 200 mls @ 0 mls/hr IV EDNOW ONE PRN Reason: Per Protocol Stop: 04/12/17 22:16 Last Admin: 04/12/17 22:25 Dose: 200 mls Sodium Chloride (Ns) 1,000 mls @ 100 mls/hr IV CONT BRITTANY Stop: 10/09/17 22:29 Last Admin: 04/13/17 02:00 Dose: 1,000 mls Amiodarone HCl (Amiodarone Hcl) 100 mls @ 600 mls/hr IV ONCE ONE Stop: 04/12/17 22:49 Last Admin: 04/12/17 22:47 Dose: 100 mls Amiodarone HCl (Amiodarone Hcl) 200 mls @ 33.333 mls/hr IV ONCE ONE Stop: 04/13/17 04:42 Last Admin: 04/13/17 03:48 Dose: 200 mls Sodium Chloride (Ns) 1,000 mls @ 0 mls/hr IV ONCE ONE PRN Reason: Wide Open Stop: 04/12/17 23:45 Last Admin: 04/12/17 23:45 Dose: 1,000 mls Norepinephrine/Sodium Chloride (Norepinephrine 8 Mcg/Ml (Premix)) 500 mls @ 0 mls/hr IV CONT BRITTANY; Titrate PRN Reason: Protocol Stop: 10/10/17 00:59 Last Admin: 04/13/17 08:44 Dose: 500 mls Ascorbic Acid 1,500 mg/ (Dextrose) 103 mls @ 206 mls/hr IV Q6H [facility]ANY Stop: 04/16/17 21:59 Last Admin: 04/13/17 06:11 Dose: Not Given Thiamine HCl 100 mg/ Sodium (Chloride) 101 mls @ 202 mls/hr IV DAILY [facility]ANY Stop: 10/10/17 03:29 Last Admin: 04/13/17 06:12 Dose: Not Given Albumin Human (Alburx 5) 500 mls @ 0 mls/hr IV ONCE ONE PRN Reason: As Directed Stop: 04/13/17 09:37 Last Admin: 04/13/17 09:53 Dose: 500 mls Midazolam HCl (Versed) 2 mg IVP ONCE ONE Stop: 04/12/17 22:10 Last Admin: 04/12/17 21:55 Dose: 2 mg Midazolam HCl (Versed) 2 mg IVP ONCE ONE Stop: 04/12/17 23:03 Last Admin: 04/12/17 23:07 Dose: 2 mg Midazolam HCl (Versed) 1 mg IVP ONCE ONE Stop: 04/13/17 02:46 Last Admin: 04/13/17 01:30 Dose: 1 mg Sodium Bicarbonate (Sodium Bicarbonate) 50 meq IV ONCE ONE Stop: 04/13/17 09:46 Last Admin: 04/13/17 09:53 Dose: 50 meq Departure - Departure Disposition: [facility] Inpatient Acute Clinical Impression: Atrial fibrillation with rapid ventricular response Acute exacerbation of congestive heart failure Qualifiers: Congestive heart failure type: unspecified congestive heart failure type Qualified Code(s): I50.9 - Heart failure, unspecified Renal failure Qualifiers: Renal failure chronicity: acute Acute renal failure type: unspecified Qualified Code(s): N17.9 - Acute kidney failure, unspecified DM type 1 (diabetes mellitus, type 1) Qualifiers: Diabetes mellitus complication status: without complication Qualified Code(s): E10.9 - Type 1 diabetes mellitus without complications Condition: Critical Report Scribed for: Dian Flores Report Scribed by: Lucita Perales Date of Report: 04/12/17 Time of Report: 19:57 Physician Review and Approval Statement: 04/12/17 19:57 Portions of this note were transcribed by a medical record administrator. I personally performed a history, physical exam, medical decision making, and confirmed accuracy of information the transcribed note.
--- NOTE | 2017-04-12 19:57 | CPEKG ---
Heart Rate: 134 RR Interval: 448 P-R Interval: 138 QRSD Interval: 84 QT Interval: 308 QTC Interval: 460 P [place]: 0 QRS [place]: 2 T Wave [place]: 36 EKG Severity - ABNORMAL ECG - EKG Impression: Atrial fibrillation Electronically Signed By: Dian Flores 12-Apr-2017 23:13:35
[2017-04-12 20:10] LABS: PLATELET COUNT 254 10^3/uL (150-400)
[2017-04-12] MEDS ORDERED: ACETAMINOPHEN 325 MG TAB PO ONE (20:29)
[2017-04-12] MEDS ORDERED: NS 500 ML IV ONE (20:29)
[2017-04-12 20:38] LABS: INR 1.29 (0.83-1.16); PROTIME(PATIENT) 16.1 SEC (12.0-15.0)
[2017-04-12] MEDS ORDERED: HEPARIN 10,000 UNIT/10 ML MDV IVP ONE (20:58)
[2017-04-12] MEDS ORDERED: HEPARIN/DEXTROSE 500 ML IV ONE (20:58)
[2017-04-12] MEDS ORDERED: AMIODARONE HCL 100 ML IV ONE ×2 (22:05→22:40)
[2017-04-12] MEDS ORDERED: MIDAZOLAM 2 MG/2 ML VIAL IVP ONE ×3 (22:09→23:02)
--- NOTE | 2017-04-12 22:14 | CPEKG ---
Heart Rate: 191 RR Interval: 314 P-R Interval: 104 QRSD Interval: 90 QT Interval: 260 QTC Interval: 464 P [place]: 0 QRS [place]: 55 EKG Severity - ABNORMAL ECG - EKG Impression: SUPRAVENTRICULAR TACHYCARDIA EKG Impression: REPOLARIZATION ABNORMALITY, PROB RATE RELATED Electronically Signed By: Dian Flores 12-Apr-2017 23:13:13
--- NOTE | 2017-04-12 22:14 | CPEKG ---
Heart Rate: 191 RR Interval: 314 P-R Interval: 104 QRSD Interval: 90 QT Interval: 260 QTC Interval: 464 P [place]: 0 QRS [place]: 55 EKG Severity - ABNORMAL ECG - EKG Impression: SUPRAVENTRICULAR TACHYCARDIA EKG Impression: REPOLARIZATION ABNORMALITY, PROB RATE RELATED Electronically Signed By: Dian Flores 12-Apr-2017 23:13:13
[2017-04-12] MEDS ORDERED: AMIODARONE HCL 200 ML IV ONE ×2 (22:15→22:43)
[2017-04-12] MEDS ORDERED: IPRATROPIUM/ALBUTEROL 3 ML DEYVIAL IH PRN (22:18)
[2017-04-12] MEDS ORDERED: LORazepam 0.5 MG TAB PO PRN (22:18)
[2017-04-12] MEDS ORDERED: oxyCODONE IR 15 MG TAB PO PRN (22:18)
[2017-04-12] MEDS ORDERED: HEPARIN 10,000 UNIT/10 ML MDV IVP PRN (22:28)
[2017-04-12] MEDS ORDERED: HEPARIN/DEXTROSE 500 ML IV SCH (22:30)
[2017-04-12] MEDS ORDERED: NS 1,000 ML IV SCH (22:30)
[2017-04-12] MEDS ORDERED: NS 1,000 ML IV ONE (23:44)
[2017-04-13] MEDS ORDERED: METOCLOPRAMIDE 10 MG/2 ML VIAL ONE (00:24)
[2017-04-13] MEDS ORDERED: NOREPINEPHRINE/NS 4 MG/500 ML BAG IV ONE ×2 (00:28→16:35)
[2017-04-13] MEDS ORDERED: ALBUMIN 5% 500 ML BOTTLE IV ONE (00:46)
[2017-04-13] MEDS ORDERED: CEFEPIME HCL 2 GM in D5W 100 ML IV SCH (01:00)
[2017-04-13] MEDS ORDERED: NOREPINEPHRINE/NS 500 ML IV SCH ×2 (01:00→17:00)
[2017-04-13] MEDS ORDERED: VASOPRESSIN/DEXTROSE 250 ML IV SCH (01:00)
[2017-04-13] MEDS ORDERED: LIDOCAINE 1% 300 MG/30 ML SDV ONE (01:15)
[2017-04-13] MEDS ORDERED: LIDOCAINE 2% VISCOUS 15 ML UDCUP ONE (01:16)
[2017-04-13] MEDS ORDERED: LIDOCAINE 2% JELLY 5 ML TUBE ONE (01:17)
[2017-04-13] MEDS ORDERED: D50W 25 GM/50 ML SYR IVP PRN ×2 (01:51→03:20)
[2017-04-13] MEDS ORDERED: MIDAZOLAM 2 MG/2 ML VIAL IVP ONE (02:45)
--- NOTE | 2017-04-13 02:53 | GHP ---
[f rep st] HISTORY AND PHYSICAL DATE OF ADMISSION: 04/12/2017 SOURCE: The patient at time of my visit in the ER, the patient had already been given conscious sedation for cardioversion attempt. Case was discussed with ER provider, [employer] Engineer at bedside, and also discussed with patient's daughter. EMR was also reviewed including previous visit from August 2016. CHIEF COMPLAINT: Dyspnea. HISTORY OF PRESENT ILLNESS: This is a pleasant 72-year-old gentleman with past medical history of COPD with chronic respiratory failure on 2-4 L of oxygen continuously, chronic pain with chronic opiate therapy due to lumbar spinal stenosis, diastolic CHF, history of venous stasis dermatitis, hypertension, hyperlipidemia and diabetes, and in August was admitted for corynebacterium bacteremia felt secondary to a persistent lumbar wound. Patient lives alone at home, and his home health care nurse came by to check on the patient today. She felt that patient was having increased work of breathing with some noted dyspnea and cough. Patient himself denied to the staff any of these symptoms and that he felt fine. Overall, he is a poor historian. The patient was again seen on the unit, and he was complaining of some fatigue. Patient's daughter reports that for the last several days, patient has had decreased mobility and oral intake. She feels that given his history of urinary incontinent, patient has been trying to avoid any oral intake to minimize number of times he has to get up to go to the restroom. Patient has had persistent and chronic back pain related to his spinal stenosis and chronic lumbar wound, which is followed closely with home health. No known complaints of fevers, chills, or sweats. REVIEW OF SYSTEMS: Limited secondary to patient's sedation. ALLERGIES: No known drug allergies. MEDICATIONS: At home, available as per EMR. Oxycodone IR 30 mg p.o. q.4 hours p.r.n., Tudorza pressair 1 puff q.12, morphine SR 100 mg p.o. t.i.d., Seroquel 25 mg p.o. q.h.s., olmesartan 5 mg p.o. daily, mirtazapine 50 mg p.o. q.h.s., aspirin 81 mg p.o. daily, Lyrica 75 mg p.o. t.i.d. PAST MEDICAL HISTORY: Significant for COPD with chronic hypoxic respiratory failure on 2-4 L of oxygen continuously, chronic pain with chronic high dose opiate therapy, chronic lumbar spine pressure ulcers, rotator cuff tears, CHF diastolic with normal EF in 08/2016 of 70%, venous stasis dermatitis, hypertension, hyperlipidemia, diabetes mellitus type 2, history of corynebacterium bacteremia in August 2016 due to wounds, major depressive disorder. PAST SURGICAL HISTORY: Significant for multiple back surgeries and lumbar spine injections, retinal detachment repair x3. FAMILY HISTORY: Significant for mother with breast cancer. SOCIAL HISTORY: Patient is , lives alone, has home health care at home , utilizes a walker, on continuous oxygen. Patient's daughter is able to provide good local support. Patient does continue to smoke 1 pack per day. He rarely drinks and no drugs as noted per EMR. Code status: Discussed with patient's daughter and again with the patient after his sedation had worn off that he desires to be a full code. Patient does not have an advanced directive in place. PHYSICAL EXAMINATION: VITAL SIGNS: On arrival to the ER, blood pressure 93/55 , heart rate 132, respiratory rate 22, O2 saturation 85% by nasal cannula, temperature 37.5. Vitals in the emergency department, blood pressure 99/53, heart rate 132, respiratory rate 24, O2 saturation 94%. Patient was undergoing cardioversion at time of my visit. Blood pressures did decline slightly into the 70s, but it gena. Heart rate was decreased to 90s to low 100, respiratory rate 21-24, saturating 98% on 40 of high flow at 100% FiO2. GENERAL: No acute distress. Patient was sedated in [facility]. Appears chronically ill, pale. HEENT : Head normocephalic, atraumatic. Eyes no scleral icterus, conjunctival injection. Mucous membranes appear significantly dry. Patient is edentulous. NECK: Supple, trachea midline. CV: Tachycardic with irregularly irregular rhythm. LUNGS: Diminished at the bases with increased work of breathing. ABDOMEN: Obese, soft, positive bowel sounds, nontender to palpation. : Knott catheter in place. A large bilateral inguinal hernia. EXTREMITIES: Patient with chronic edema and chronic venous stasis with flaky, thick, scaly skin. NEUROLOGIC: Unable to assess, patient is somnolent. He is able to respond to simple commands, moans to movement of his back. LABORATORY DATA: WBC 16.2, H and H 15.3/39.9, MCV 9.5, platelet count 254, neutrophil percent 89.5 with bandemia. PT is 16.1. INR is 1.29. PTT 33.5. D- dimer is 5.22. Sodium is 132, potassium is 3.7, chloride 93, CO2 23, BUN 50, creatinine 2.5, glucose 71, calcium 7.9, total bilirubin is 1.9, troponin 0.210 , BtNP 26,000, TSH 1.5. UA specific gravity 1.018, pH of 5.0, 1+ protein, trace ketones, 2+ blood, nitrates negative, bilirubin positive, leukocyte esterase 2+, WBC's 50-182, RBC's 15-25, 4+ bacteria, [place] casts 25-50, mucous 4+, negative urine glucose. Influenza negative. Initial ABG pH of 7.31 , PCO2 of 20, PO2 is 41. Bicarb is 10, O2 saturation 68, BE -15, lactic acid 2.6 on 40 L per minute on 100% FiO2 high flow. IMAGING: Chest x-ray report reviewed. Hypoventilatory features with cardiomegaly, peribronchial thickening, mild pulmonary vascular congestion, bibasilar airspace disease, subsegmental atelectasis with minimal infiltrates, perihilar bronchial thickening, old right rib fractures. EKG reviewed by myself shows AFib with RVR in the 130's. ASSESSMENT AND PLAN: This 72-year-old gentleman with multiple medical problems presents with dyspnea. 1. Severe sepsis with shock. Patient with possible pneumonia and urinary tract infection. He has had decreased oral intake for several days. Patient meeting criteria with leukocytes, tachycardia, tachypnea, elevated lactate with a left shift on CBC. Source is possibly pneumonia, urinary tract infection versus bacteremia with history of corynebacterium bacteremia in August. Patient received Levaquin in the emergency department. Will broaden spectrum to include vancomycin and cefepime. Will get an infectious disease consult. Patient's blood pressure were initially responding to IV fluids in the emergency department. A central line was not initially placed. Critical care will be consulted to assist discussed with patient's daughter regarding severity of the illness and possibility for need of central line with pressor support and intubation. Patient is a full code. Patient received some dopamine in the emergency department for blood pressure support, as it was felt initially that patient was having atrial fibrillation as a primary diagnosis. However, heart rate did not tolerate, and the patient's heart rate went to the 190's. 2. Pneumonia as above. Coverage initially given with Levaquin 750 mg. Will broaden to include vancomycin and cefepime. 3. Atrial fibrillation with rapid ventricular response status post amiodarone bolus and drip, as well as attempt at cardioversion x4 that was unsuccessful. However, patient's heart rate has decreased down to the 90s to 100, but despite this blood pressure remain low. 4. Urinary tract infection present on admission, Knott catheter in place. Antibiotics as noted above with appropriate coverage. Await cultures. 5. Acute on chronic respiratory failure. Patient continues to remain hypoxic on high flow oxygen. Critical care consultation as above. 6. Chronic obstructive pulmonary disease without wheezing or evidence of exacerbation, but patient remains hypoxic. Nebulizer treatment and possible intubation. 7. Hyponatremia likely related to hypovolemia. IV fluids, bolusing as above. 8. Hyper chloridemia secondary to hypovolemia and related to hyponatremia in the setting of hyponatremia. IV fluids and monitor BNP. 9. Anemia likely of chronic disease. Patient close to baseline. No evidence of active bleeding, but he will be placed on a heparin drip for the atrial fibrillation with rapid ventricular response. Will monitor closely. Daughter signed a consent for a blood transfusion if needed, and this has been placed in the chart. 10. Acute kidney injury secondary to hypovolemia and prerenal injury. Continuous IV fluid support and pressor support as needed. 11. Elevated lactate. Trend lactates. IV fluids, pressor support as above. 12. Hypocalcemia. Check LFTs. Anticipate patient with some diminished albumin , so would likely correct given his chronic status and acute illness. 13. Elevated troponin likely demand with hypotension and/or type 2 myocardial infarction. Patient denies any chest pain. 14. Diastolic congestive heart failure without decompensation. Continue with IV fluid hydration, monitor closely. 15. History of hypertension, hyperlipidemia, and diabetes. Monitor blood sugars with Accu-Cheks. Blood sugar slightly diminished and will monitor closely. D50 p.r.n. Diabetic diet. 16. Chronic decubitus ulcer in the lumbar spine. Wound care consult. This is present on admission. 17. Chronic pain. Supportive care at this time with low blood pressures. Reviewed with patient. 18. Hyperbilirubinemia likely related to sepsis. Continue to monitor. 19. Fluids, electrolytes, and nutrition. Status post IV fluid bolus. Electrolyte replacement p.r.n. ADA diet. However, patient developed some nausea in the emergency department, so will hold at this time. Monitor for aspiration risk. 20. Prophylaxis on heparin drip. Sequential compression devices if tolerated. Patient with chronic venous stasis and edema. 21. Code status is full. DISPOSITION: Patient admitted to inpatient status in the ICU. Patient is critically ill. I discussed this with the daughter. Further intervention may be required and patient with high risk morbility, mortality. Sixty minutes of critical care time total spent discussing with consultants and patient's daughter. /[id number]/MODL MTDD
[2017-04-13] MEDS: VANCOMYCIN HCL/NORMAL SALINE 250 ML IV SCH (02:54)
[2017-04-13] MEDS ORDERED: ASCORBIC ACID 1,500 MG in D5W 100 ML IV SCH (03:30)
[2017-04-13] MEDS ORDERED: THIAMINE HCL 100 MG in NS 100 ML IV SCH (03:30)
[2017-04-13] MEDS: NICOTINE 21 MG/24 HR PATCH TD SCH ×2 (03:50→10:08)
[2017-04-13] MEDS: ALBUTEROL 200 PUFFS/18 GM MDI IH SCH ×7 (03:55→23:40)
[2017-04-13 03:58] LABS: PLATELET COUNT 214 10^3/uL (150-400)
[2017-04-13 04:19] LABS: CREATINE KINASE 345 IU/L (0-224)
[2017-04-13 04:20] LABS: INR 1.64 (0.83-1.16); PROTIME(PATIENT) 19.5 SEC (12.0-15.0)
[2017-04-13] MEDS ORDERED: AMIODARONE HCL 540 MG in D5W 300 ML IV ONE (04:30)
--- NOTE | 2017-04-13 04:49 | GCON ---
[f rep st] CONSULTATION PULMONARY/CRITICAL CARE CONSULTATION DATE OF CONSULTATION: 04/13/2017 REASON FOR CONSULTATION: Hypotension, acute respiratory failure, sepsis. HISTORY: The patient is a 72-year-old gentleman, who presented to the emergency department this even ing. He was more short of breath, was seen by home care, and EMS was called. [facility], he was found to be in rapid atrial fibrillation. Cardiology was consulted. A ches t x-ray was consistent with congestive heart failure; however, pneumonia could not be excluded. Syst olic blood pressure was 83. He was given some intravenous fluids, and blood cultures and a serum lac aragon were obtained. Levaquin was started for possible pneumonia. Cardioversion was initially consid ered, but the patient apparently declined. He was placed on dopamine, which increased his atrial fib rillation with a ventricular response of approximately 190. Dopamine was discontinued, and cardiover zulay was attempted twice without success. Systolic blood pressure came up to approximately 95, and mark zarate was admitted to the intensive care unit. In the ICU, he declined. He did vomit on his way from the emergency department and again in the ICU, small amount of bilious material. Oxygen requirements increased and he became more somnolent. Bloo d pressure dropped into the 70s. He was placed on norepinephrine using a peripheral line. I was sharmin led at approximately 12:40 a.m. When I arrived shortly thereafter, approximately 0100, the patient w as on BiPAP, was poorly responsive, was hypotensive with a systolic blood pressure approximately 85 a nd saturations of approximately 90%. He was urgently intubated. Bronchoscopy was performed with bilious material found throughout the air ways. This was removed, and a culture was sent. A central line was placed. CVP was 15 at that time following approximately 2-3 L of fluid and 500 of albumin given previously. Those procedures are di ctated separately. The patient has a history of multiple medical problems, was admitted to the hospital in August with bacteremia from a decubitus ulcer on his back. Recent outpatient evaluation has included CT scans o f the chest and abdomen showing lymphadenopathy. A biopsy was performed a little over a month ago wi th normal lymph node pathology found. PAST MEDICAL HISTORY: Remarkable for COPD and ongoing tobacco abuse, uses oxygen 2 L at night, type 2 diabetes, systemic hypertension, history of chronic back pain with multiple previous back surgical procedures, lumbar stenosis, an ulceration related to the low back, depression, chronic venous stasis , chronic pain, prostate cancer, and hyperlipidemia. PAST SURGICAL HISTORY: Multiple back surgeries, prostatectomy. HOME MEDICATIONS: Included oxycodone, MS Contin, Lyrica, aspirin, olmesartan, quetiapine, and Tudorz a 1 inhalation q.12. SOCIAL HISTORY: The patient is apparently . He has a family. His is not here. He has a long history of tobacco abuse and is currently smoking. He apparently does drink alcohol, quantity is unknown. FAMILY HISTORY: Breast cancer in his mother. REVIEW OF SYSTEMS: Unobtainable. PHYSICAL EXAMINATION: GENERAL: Reveals a gentleman who appears older than his stated age. He is no w on the ventilator. VITAL SIGNS: Current blood pressure is 98/56 on norepinephrine, heart rate chintan roximately 90 with atrial fibrillation on the monitor. He is on an amiodarone drip. Saturations are 95% on 100% FiO2 on the ventilator. Normal saline is at 75. CVP is 15. HEENT: Remarkable for an NG tube with bilious material. When placed post intubation, approximately 1200 mL of dark green bili ous fluid were evacuated from the stomach. HEENT: Pupils are small and appear equal. Reactivity co uld not be assessed. NECK: There is no lymphadenopathy or thyromegaly. Jugular venous distention i s present. A central line is in place in the right subclavian vein. CHEST: Reveals decreased breat h sounds bilaterally with some central rhonchi and inspiratory/expiratory airway sounds/wheezes. He is not tight. Rales are present at the bases. HEART: The heart is irregular. Heart tones are dist ant. A systolic murmur is present. There is no obvious gallop. P2 does appear to be increased. AB DOMEN: Distended and tender to palpation. Bowel sounds are diminished. A Knott catheter is in plac e with little urine output. EXTREMITIES: The lower extremities show 1 to 2+ chronic edema with asso ciated skin discoloration. He does have an ulcer over his back; however, this is dressed and was not currently examined. NEUROLOGIC: Difficult to assess as he is currently sedated. Prior to intubati on, he moved all extremities weakly and was groaning to stimulation and abdominal palpation. DATABASE: Chest x-ray post intubation shows the endotracheal tube to be in good position. The new c entral line is also in good position on the right. There are hypoventilatory changes, a relatively l arge heart, infiltrates present, right greater than left. Abdominal flat plate shows air in the stom ach and distended small intestine consistent with ileus. Some bowel gas is present in the large inte rivas on the right but not throughout the transverse colon and not in the sigmoid colon or rectum, ra ising the possibility of a mechanical bowel obstruction. CT scan of the abdomen has been requested. Electrocardiogram showed atrial fibrillation, without obvious acute ischemia. LABORATORY DATA: White blood cell count is 16,000, hematocrit 39.9, platelets 254,000. There is a s hift to the left. PT on admission was 16 with an INR of 1.29, PTT 33.5. Arterial blood gas prior to intubation showed a pH of 7.26, pCO2 of 57, and pO2 of 54 on high-flow oxygen. Sodium is 132, potas sium 3.7, CO2 of 23, anion gap 16, BUN 50 with a creatinine of 2.5 (BUN and creatinine were normal in August), glucose 71, calcium 7.9, bilirubin 1.9. Troponin is 0.2. BNP 26,000. TSH is normal. U rinalysis shows pyuria. Red blood cells are also present. Influenza A/B by PCR was negative on admi ssion. ASSESSMENT: 1. Acute respiratory failure. This is secondary to aspiration of bilious material. He was known to vomit on 2 occasions since admission. His respiratory status then seemed to decline precipitously. Residual bilious material in his airways was removed. He is on cefepime and vancomycin, adequate fo r coverage for aspiration. Underlying chronic obstructive pulmonary disease may also be contributing as may shunting related to sepsis. He also has a history of congestive heart failure, by report. T his apparently is diastolic as previous ejection fraction was 70%. Volume resuscitation may also be contributing. 2. Chronic obstructive pulmonary disease, with ongoing tobacco abuse. Albuterol will be given while he is on the ventilator. He does not appear to have a significant chronic obstructive pulmonary dis ease exacerbation, but may worsen as a result of his aspiration. Steroids for chronic obstructive pu lmonary disease will be given for now. He will be getting hydrocortisone for sepsis. 3. Sepsis, severe, associated with hypotension. He has been volume resuscitated. He is on norepine phrine. He may need a second pressor. Steroids will be started, 50 mg IV q.6 hours. Based on recen t data, he will also empirically will be given vitamin C and thiamine. He is on the sepsis protocol, has received antibiotics, now has a central line. Initial venous lactate was 2.6. This will be rep eated along with an MVO2. 4. Abnormal mental status secondary to all the above. Medications are also contributing. 5. Ileus, with gastric retention. Mechanical bowel obstruction needs to be excluded. CT scan of th e abdomen has been ordered. Surgical consult may or may not be needed. 6. History of congestive heart failure, diastolic dysfunction. 7. Acute atrial fibrillation. He apparently does not have a history of atrial fibrillation prior. He was refractory to cardioversion. Rate control is significantly better at this time on IV amiodaro ne. Cardiology will continue to follow. There is no evidence of acute coronary disease. 8. History type 2 diabetes. Glucoses will be followed and appropriate insulin coverage given as nee ded. 9. Acute renal failure. BUN and creatinine are elevated. Volume depletion appears to be playing a role as he may not have been taking adequate fluids prior to admission. Acute issues, including seps is, are also likely involved. 10. Ulceration apparently related to a decubitus and/or previous back surgeries. This is dressed an d was not currently examined. Wound Care will be involved. He is being covered with vancomycin and cefepime; however, I do not believe that this ulcerative lesion is a current source for his sepsis an d current presentation. 11. History of chronic pain, on narcotics, failure to thrive, and systemic hypertension, and other m edical problems as outlined above. PLAN AND RECOMMENDATIONS: Aggressive supportive care, ventilatory support, pressors, etc., will all be maintained, and current antibiotics will be continued. Cultures will be awaited. A urine culture has also been ordered as he presents also with pyuria, another potential source for his sepsis. Vit madison C and hydrocortisone along with thiamine will be ordered. He will be kept on the sepsis protoco l. CT scan of the abdomen will be performed now. Chest x-ray, blood gas, chemistries, and liver fun ction studies, CBC, will all be followed. He is a full COR status. This will be maintained. Progno sis is unknown at this time and guarded as he presents with multiorgan failure and severe sepsis. 90 minutes of critical care time was spent directly with the patient, not including the intubation, b ronchoscopy, central line placement, and nasogastric tube placement. /[id number]/MODL
[2017-04-13] MEDS: ASCORBIC ACID 1,500 MG in D5W 100 ML IV SCH ×4 (05:00→23:00)
--- NOTE | 2017-04-13 05:16 | SOAPPROG ---
SOAP Progress Note Assessment/Plan: Assessment/Plan: Asked to consult on 72yo M c sepsis, now intubated with CT scan showing free air - likely perforated small bowel 2/2 SBO from [facility]. This is likely the source of his sepsis. Planning urgent OR for exploration. At this time, unable to reach next of kin for consent. Will plan to proceed without as patient verbalized earlier today that he would want everything done. Full note to come 04/13/17 05:14 Objective: Vital Signs Temp Pulse Resp BP Pulse Ox 36.8 C 83 20 98/56 L 94 04/13/17 04:42 04/13/17 04:42 04/13/17 04:42 04/13/17 04:42 04/13/17 04:42 Laboratory Results 04/13/17 03:45 04/13/17 03:45 04/11/17 04/12/17 04/13/17 05:59 05:59 05:59 Intake Total 4000 Output Total 1725 Balance 2275 PT 19.5 SEC (12.0-15.0) H 04/13/17 03:45 INR 1.64 (0.83-1.16) H 04/13/17 03:45 ICD10 Worksheet Patient Problems: Problems Problem Status Onset Altered mental status Acute Aspiration pneumonia Acute COPD (chronic obstructive pulmonary disease) Acute DM type 1 (diabetes mellitus, type 1) Acute Lumbosacral radiculopathy at L5 Acute Narcotic dependency, continuous Acute Renal failure Acute Severe sepsis with septic shock Acute Spinal stenosis, lumbar Acute Tobacco dependence Acute
--- NOTE | 2017-04-13 05:50 | GPN ---
[f rep st] PROCEDURE NOTE DATE OF PROCEDURE: 04/13/2017 PROCEDURE: Endotracheal intubation. INDICATION: Acute respiratory failure. DESCRIPTION OF PROCEDURE: The procedure was performed in the patient's room in the intensive care un it. Informed consent was obtained from the patient's prior to the procedure by telephone. Appr opriate time-out was performed. An N95 mask was worn despite there being no risk of airborne respira tory infectious organisms. One milligram of intravenous Versed was used for conscious sedation. Approximately 12 cc of 1% lidoc yonathan was used for topical anesthesia of the posterior oropharynx and airways. A bite block was placed orally. The bronchoscope was advanced through the bite block and into the la rynx. The vocal cords were identified and cannulated. A 7.5 endotracheal tube was advanced over the bronchoscope and into the trachea and left 2-3 cm above the main jessica. The bronchoscope was remov ed. The patient was stabilized and placed on the ventilator on 100% FiO2 with a tidal volume of 550 and a respiratory rate of 20. There were no complications. Oxygen saturations were in the high 80s throughout the procedure and came up into the 90s post intubation and mechanical ventilation. IMPRESSION: Successful endotracheal intubation. /[id number]/MODL
--- NOTE | 2017-04-13 05:51 | PDANEPAE ---
ANE History of Present Illness 72 yo with perforated bowel, septic on vasopressors ANE Past Medical History - Cardiovascular History Hx Hypertension: Yes Hx Arrhythmias: No Hx Chest Pain: No Hx Coronary Artery / Peripheral Vascular Disease: Yes Hx CHF / Valvular Disease: Yes Hx Palpitations: No Cardiovascular History Comment: CAD W/STENT 2005. CHF (R/L HEART FAILURE). HTN. HYPERLIPIDEMIA - Pulmonary History Hx COPD: Yes Hx Asthma/Reactive Airway Disease: No Hx Recent Upper Respiratory Infection: No Hx Oxygen in Use at Home: Yes O2 in Use at Home (L/minute): 2 Hx Sleep Apnea: No Pulmonary History Comment: COPD. NOCTURNAL HYPOXIA, 4L O2 AT HS, RA DURING DAY - Neurologic History Hx Cerebrovascular Accident: No Hx Seizures: No Hx Dementia: No Neurologic History Comment: DIABETIC NEUROPATHY. GAIT INSTABILITY X 3 MONTHS. LUMBAR BACK PAIN - Endocrine History Hx Diabetes: Yes Endocrine History Comment: HYPERPARATHYROIDISM. NIDDM. NO INSULIN OR ORAL ANTIHYPERGLYCEMICS, MANAGES WITH DIET AND EXERCISE. - Renal History Hx Renal Disorders: No - Liver History Hx Hepatic Disorders: No - Neurological & Psychiatric Hx Hx Neurological and Psychiatric Disorders: Yes Neurological / Psychiatric History Comment: DEPRESSION - Cancer History Hx Cancer: Yes Cancer History Comment: PROSTATE CA 2002 - Congenital Disorder History Hx Congenital Disorders: No - GI History Hx Gastrointestinal Disorders: Yes Gastrointestinal History Comment: OPIOID INDUCED CONSTIPATION. - Other Health History Other Health History: CHRONIC OPIOID USE FOR BACK PAIN, JOINT PAIN. INSOMNIA. VITAMIN D DEFICIENCY - Chronic Pain History Chronic Pain: Yes - Surgical History Prior Surgeries: RETINAL DETACTCHMENT X3, BILAT ROTATOR CUFF REPAIR, BILATERAL FOOT SURGERIES WITH HARDWARE IN TOES, RAD PROSTATECTOMY 2001. ANE Review of Systems Review of Systems: ANE Patient History - Allergies Allergies/Adverse Reactions: No Known Allergies Allergy (Unverified 12/26/10 10:34) - Home Medications Home Medications: Aspirin EC [Aspirin EC 81 mg (*)] 81 mg PO DAILY 06/06/16 [Last Taken 09/16/16 08:00] Mirtazapine 15 mg PO HS 09/16/16 [Last Taken 09/15/16 20:00] Pregabalin [Lyrica 75mg (*)] 75 mg PO TID 09/16/16 [Last Taken 09/14/16] Aclidinium Upperglade [Tudorza Pressair] 1 puffs IH Q12 04/12/17 [Last Taken Unknown] Olmesartan Medoxomil [Olmesartan Medoxomil] 5 mg PO DAILY 04/12/17 [Last Taken Unknown] Quetiapine Fumarate [Quetiapine Fumarate] 25 mg PO HS 04/12/17 [Last Taken Unknown] morphINE SR [Ms Contin/Oramorph 100 mg (*)] 100 mg PO TID 04/12/17 [Last Taken Unknown] oxyCODONE IR [Oxycodone Ir (*)] 30 mg PO Q4 PRN 04/12/17 [Last Taken Unknown] - Smoking Hx Smoking Status: Current every day smoker - Family Anes Hx Family Hx Anesthesia Complications: NEG ANE Labs/Vital Signs - Labs Result Diagrams: 04/13/17 03:45 04/13/17 03:45 - Vital Signs Blood Pressure: 98/56 Heart Rate: 83 Respiratory Rate: 20 O2 Sat (%): 94 Height: 177.8 cm Weight: 83.915 kg
--- NOTE | 2017-04-13 05:55 | GPN ---
[f rep st] PROCEDURE NOTE DATE OF PROCEDURE: 04/13/2017 PROCEDURE: Therapeutic bronchoscopy. INDICATION: Acute respiratory failure. PROCEDURE NOTE: The procedure was performed in the patient's room in the intensive care unit. Hill zarate see the intubation note. N95 masks were worn. The patient was given 1 mg of intravenous Versed fo r conscious sedation. Informed consent had previously been obtained from the patient's , appropr iate time-out was performed, etc. The fiberoptic bronchoscope was passed via an adapter on the end of the patient's endotracheal tube a nd from there into the distal trachea and lower tracheobronchial tree bilaterally. There was a subst antial amount of bilious material coating the trachea and extending into the lower tracheobronchial t ree bilaterally. This had obviously been aspirated. Initially some blood was found in the airways, presumably secondary to trauma from intubation at the level of the larynx. Also, the patient was hep arinized and anticoagulation contributed. Bilious secretions and blood were removed from both sides with suction and washings. Underlying anatomy appeared normal. There was no evidence of food aspira tion. A sample was obtained and sent for cultures. There were no complications. Oxygen saturations remained in the 90s throughout the procedure with th e patient being ventilated on 100% FiO2. Systolic blood pressure was approximately 85 throughout the procedure, on norepinephrine. IMPRESSION: 1. Normal endobronchial anatomy. 2. Evidence of aspiration of bilious material. 3. Minor trauma from intubation with blood initially found and easily removed. /[id number]/MODL
--- NOTE | 2017-04-13 05:55 | GPN ---
[f rep st] PROCEDURE NOTE DATE OF PROCEDURE: 04/13/2017 PROCEDURE: Central line placement. INDICATION: Venous access in a patient with hypotension and sepsis, and multi organ failure. PROCEDURE NOTE: The procedure was performed in the intensive care unit. Informed consent had been p reviously obtained from the patient's over the telephone. Appropriate time-out was performed. No conscious sedation was required, but 10 cc of 1% lidocaine was used for local anesthesia. Sterile technique and sterile barriers were utilized. The skin was prepped with chlorhexidine. A triple-lumen catheter was placed via the right subclavian vein without complication. There was goo d blood return from all 3 ports. Chest x-ray following the procedure documented the line to be in go od position. IMPRESSION: Successful central line placement. CVP is 15. /[id number]/MODL
[2017-04-13] MEDS: INSULIN REGULAR HUMAN 100 UNIT/ML SC SCH ×4 (06:10→23:26)
[2017-04-13] MEDS ORDERED: MIDAZOLAM 2 MG/2 ML VIAL ONE ×2 (06:24→06:25)
--- NOTE | 2017-04-13 07:17 | POSTOPPROG ---
Post Op Note Date of Operation: 04/13/17 Surgeon: Venkatesh Avendaño Anesthesiologist: Warm Anesthesia: GET(General Endotracheal) Pre-op Diagnosis: perforated viscus Post-op Diagnosis: ischemic cecum in hernia, perforated prox small bowel Procedure: ex-lap, groin exploration, ileocecectomy, small bowel resxn Findings: cecum, perforated small bowel, gross purulence in abdomen Inf/Abcess present in the surg proc area at time of surgery?: Yes Depth: Organ Space EBL: Minimal Total fluids administered: 3000cc washout Drains: Other (Abthera open abdomen) Specimen(s): abdominal fluid culture terminal ileum and cecum small bowel
[2017-04-13] MEDS ORDERED: fentaNYL 100 MCG/2 ML INJ IVP PRN (07:47)
[2017-04-13] MEDS ORDERED: NALOXONE HCL 0.4 MG/ML INJ IVP PRN (07:47)
[2017-04-13] MEDS ORDERED: HYDROmorphONE/DILAUDID 1 MG/ML INJ IVP PRN (07:47)
--- NOTE | 2017-04-13 07:49 | POSTANESTH ---
Post Anesthetic Evaluation Cardiovascular Status: Similar to Pre-Op Cond, Tx Hyper/Hypo-tension Respiratory Status: Similar to Pre-op Cond., Other, See Comment Level of Consciousness/Mental Status: Unconscious Pain Control: Adequate, Prn Tx Ordered Nausea/Vomiting Control: Adequate, Prn Tx Ordered Complications Possibly Related to Anesthesia: None Noted (Pt brought to ICU. Placed on vent. Levophed running at 17 mcg/kg/min, same as preop.)
[2017-04-13] MEDS: THIAMINE HCL 100 MG in NS 100 ML IV SCH (08:13)
[2017-04-13] MEDS: HYDROCORTISONE 100 MG/2 ML VIAL IVP SCH ×4 (08:35→23:48)
[2017-04-13 08:39] LABS: PLATELET COUNT 227 10^3/uL (150-400)
[2017-04-13 08:50] LABS: INR 1.72 (0.83-1.16); PROTIME(PATIENT) 20.2 SEC (12.0-15.0)
--- NOTE | 2017-04-13 09:15 | CPIP ---
[f rep st] INVASIVE CARDIAC PROCEDURE The patient is in the hospital emergency room with atrial fibrillation with a rapid ventricular respo nse and relative hypotension. He gave informed consent to me to proceed with cardioversion. At the time I spoke to him in the [facility] room for 15 minutes and we went over what our plan was. Earlier in the evening, I had talked t o him about doing an elective cardioversion and when I explained to him the risks, which included str prudencio, he did not want to undertake cardioversion at that time He, at this time, is willing to undergo cardioversion and has given informed consent, although we did not get him to sign any paperwork, but there were multiple witnesses present. We proceeded then to shock him with anesthesia provided by the emergency room physician. He received 360 watt seconds 2 times for his atrial fibrillation and did not convert to sinus rhythm. He had no complications. Neurologically he was intact. All his questions have been answered. I dis cussed this with the family. /[id number]/MODL
--- NOTE | 2017-04-13 09:15 | CPIP ---
[f rep st] INVASIVE CARDIAC PROCEDURE The patient is in the hospital emergency room with atrial fibrillation with a rapid ventricular respo nse and relative hypotension. He gave informed consent to me to proceed with cardioversion. At the time I spoke to him in the [facility] room for 15 minutes and we went over what our plan was. Earlier in the evening, I had talked t o him about doing an elective cardioversion and when I explained to him the risks, which included str prudencio, he did not want to undertake cardioversion at that time He, at this time, is willing to undergo cardioversion and has given informed consent, although we did not get him to sign any paperwork, but there were multiple witnesses present. We proceeded then to shock him with anesthesia provided by the emergency room physician. He received 360 watt seconds 2 times for his atrial fibrillation and did not convert to sinus rhythm. He had no complications. Neurologically he was intact. All his questions have been answered. I dis cussed this with the family. /[id number]/MODL
--- NOTE | 2017-04-13 09:15 | CPIP ---
[f rep st] INVASIVE CARDIAC PROCEDURE The patient is in the hospital emergency room with atrial fibrillation with a rapid ventricular respo nse and relative hypotension. He gave informed consent to me to proceed with cardioversion. At the time I spoke to him in the [facility] room for 15 minutes and we went over what our plan was. Earlier in the evening, I had talked t o him about doing an elective cardioversion and when I explained to him the risks, which included str prudencio, he did not want to undertake cardioversion at that time He, at this time, is willing to undergo cardioversion and has given informed consent, although we did not get him to sign any paperwork, but there were multiple witnesses present. We proceeded then to shock him with anesthesia provided by the emergency room physician. He received 360 watt seconds 2 times for his atrial fibrillation and did not convert to sinus rhythm. He had no complications. Neurologically he was intact. All his questions have been answered. I dis cussed this with the family. /[id number]/MODL
[2017-04-13] MEDS ORDERED: ALBUMIN 5% 500 ML IV ONE ×2 (09:36→14:11)
[2017-04-13] MEDS ORDERED: SODIUM BICARBONATE 50 MEQ/50 ML SYR IVP ONE (09:38)
--- NOTE | 2017-04-13 09:40 | GCON ---
[f rep st] CONSULTATION DATE OF CONSULTATION: 04/12/2017 HISTORY OF PRESENT ILLNESS: I was asked to see the patient on 04/12/2017 in the evening when he was having atrial fibrillation with rapid ventricular response, with hypotension. He came to the emergency room. His family said that for a week or two he had not been eating very mu ch. They also told me that he was lying around a lot and not moving. He had been feeling tired. He was not himself. His home care worker told him to come to the emergen cy room, and that is why he came. He specifically said that he does not have chest pain, jaw pain, a rm pain, pleuritic pain. He said he was not having a cough or fever or chills. He denied having francesca sea or vomiting. He had intermittently some discomfort in his stomach. He had not been having loss of appetite, he said, but the family said he has not been eating much. He has had no diarrhea. He h as not been having arthralgias. He has no new neurologic complaints, except feeling a little bit mor e tired than normal. He has known coronary artery disease and told me that he received a stent 20 ye ars ago. He has had intermittent episodes of congestive heart failure. He sees Dr. Aidan Fiore in my group. When he had his stent placed, he had no chest pain at the time, and it was just picked up on laboratory testing. He said he does not really remember the details, but he knows it was not a si tuation where he was in a lot of pain. He has multiple arthritic complaints involving his spine, and he takes opiates for that. He has been on oxygen at night for a long time. He has a history of remote smoking, coronary disease, hypertens ion, hyperlipidemia, and diabetes. He is overweight. He has no family history of premature coronary disease. He has never had a heart attack. He has no cerebrovascular disease. He has been taking his medications mostly, but says he misses sometimes. The only other chronic issu es are related to his back, and he has some trouble with an infection there, he has told me, and he h as had intermittent peripheral edema in his legs, but it has been improved lately. When I reviewed the records, he was last in the hospital for an infection in August of 2016. PAST MEDICAL HISTORY: ALLERGIES: None. MEDICATIONS: Mirtazapine, olmesartan, Tudorza, oxycodone, an inhaler, aspirin, Seroquel, Lyrica. FAMILY HISTORY: He has no family history of premature coronary disease. No history of unexplained s udden in the family at a young age. SOCIAL HISTORY: His daughter is here with him. He was born in [place], [place], went to high school in [place], [place]. He is retired. He does not smoke. He does not drink significant amounts of a lcohol. REVIEW OF SYSTEMS: A 12-point review of systems is negative, except as noted above. The chart speaks of venous stasis dermatitis. His diabetes is type 2, and he tries to watch it as carefully as he can. Otherwise, the reader is re ferred to the record. He has a history of opiate use. He has a history of hypoxic respiratory failure. PHYSICAL EXAMINATION: VITAL SIGNS: Blood pressure 75/50. His heart rate is 119-120. His respirato ry rate is 14. GENERAL: He is lying comfortably, almost flat on a hospital cot, when I first examin ed him. I have spent over 45 minutes with him, and he can lie comfortably for that entire time. EYE S: Pupils are equal and reactive. NECK: Supple. CARDIOVASCULAR: S1, S2. Soft systolic murmur, l eft sternal border. No diastolic murmur. No S3, S4. No rubs. It is irregularly irregular. PULMON GEOFFREY: Exam reveals increased AP diameter, prolonged expiration. Dullness at the bases. ABDOMEN: So ft, nontender. No masses were appreciated. EXTREMITIES: Reveal moderately tense edema of the lower extremities, but it is only 1 to 1.5+. He has stockings covering him to the knee, and I have not ta antonio those off. SKIN: Shows age-related changes. PSYCH: No obvious anxiety or depression. NEUROLOGIC: Exam is in tact, with no obvious cranial neuropathies. LABORATORY DATA: White count 16.2, hematocrit 39, platelets 250. Sodium 132, potassium 3.7, chlorid e 93, CO2 23, BUN 50, creatinine 2.5, glucose 71, bilirubin 1.9. Troponin 0.2. BNP 26,000. TSH 1.5 . Chest x-ray shows peribronchial thickening, pulmonary vascular congestion. EKG is atrial fibrilla tion, rapid ventricular response in the 140s. ASSESSMENT/PLAN: 1. Hypotension. 2. Atrial fibrillation with rapid ventricular response. 3. Coronary artery disease. 4. Diabetes. 5. Hypertension. 6. Hyperlipidemia. 7. Obesity. The patient comes in somewhat lethargic, but really not complaining of anything. He is hypotensive, with atrial fibrillation with rapid ventricular response, and he has no symptoms from atrial fibrilla tion. He says that he does not feel a rapid heartbeat. He has no feeling that his heart is palpitat ing or irregular. So, he is here with this atrial fibrillation with a rapid ventricular response and has absolutely no symptoms, so we have no idea how long this could have been going on. He does not have an overt congestive heart failure. He can lie perfectly flat on the gurney and not be dyspneic from that. He has ongoing chronic pulmonary disease. Recently, when his blood pressure was low in the emergency room, he was given dopamine, which drove h is heart rate up to the 190s, and that was stopped quickly. When he was given fluids, his blood pres sure responded and went from 70 to 103. Over the course of the night, I came back and spent another hour with him, and he, at that time, was in atrial fibrillation with a rapid ventricular response, had not responded to amiodarone, and we car dioverted him 2 times at 360 watt seconds synchronized cardioversion, and he remained in atrial fibri llation. A Knott catheter was then placed, and he had very little urine present. His blood pressure was stable at 95, and he was talking and having no new complaints. At that point in time, we starte d resuscitating him with fluids. He had already been treated for sepsis and likely given the possibi lity this hypotension was related to an infectious process. He remained on that medication. I did h ave a chance to talk to the patient for a good period of time about resuscitation, and he clearly wan ts to be resuscitated, and I told him we will definitely do that. For his atrial fibrillation, he had received multiple doses of amiodarone IV boluses and was cardiove rted 4 different times, remained in atrial fibrillation throughout, so we are going to support that w ith full anticoagulation as can be tolerated, and rate control. With IV fluids, his blood pressure i s picking up, and we can watch what his heart rate does, and it has actually come down on its own as well. When the Knott catheter was placed, his urine looked awful, and an infection may be part of the proce ss of what is causing his trouble right now. I do not think he is having an acute coronary syndrome. He has acute renal insufficiency with a crea tinine up to 2.5, and that may all be due to dehydration and sepsis. We will follow him very closely. I spent a good deal of time talking to the daughter and the daughter's son, and all their questions h ave been answered. /[id number]/MODL
[2017-04-13] MEDS ORDERED: NA BICARBONATE 50 MEQ/50 ML VIAL IV ONE (09:45)
[2017-04-13] MEDS ORDERED: PROTOCOL CALCIUM 1 DOSE IV PRN (10:03)
[2017-04-13] MEDS ORDERED: PROTOCOL POTASSIUM 1 DOSE MISC PRN (10:03)
[2017-04-13] MEDS ORDERED: PROTOCOL K PHOSPHATE 1 DOSE IV PRN (10:03)
[2017-04-13] MEDS ORDERED: PROTOCOL MAGNESIUM 1 DOSE IV PRN (10:03)
[2017-04-13] MEDS ORDERED: POTASSIUM Cl (KCl) 20 MEQ/100 ML BAG IV ONE (10:34)
[2017-04-13] MEDS ORDERED: CALCIUM GLUCONATE 50 ML IV ONE (11:37)
[2017-04-13] MEDS ORDERED: MAGNESIUM SULF 1 GM/DEXTROSE 100 ML IV ONE (11:37)
[2017-04-13] MEDS: POTASSIUM Cl (KCl) 50 ML IV SCH ×6 (12:20→23:34)
[2017-04-13] MEDS: NS 1,000 ML IV SCH (13:21)
--- NOTE | 2017-04-13 13:36 | GCON ---
[f rep st] CONSULTATION DATE OF CONSULTATION: 04/13/2017 CHIEF COMPLAINT: Sepsis. HISTORY OF PRESENT ILLNESS: This is a 72-year-old male, admitted to the medical service with sepsis of unknown source. Per chart review, the patient presented to the emergency department complaining o f dyspnea. He has an extensive past medical history, and laboratory workup at that point in time, sh owed that he likely had sepsis, but in addition had atrial fibrillation with RVR. He subsequently un derwent cardioversion in the emergency department uneventfully, and was transported to the intensive care unit. In the intensive care unit, he continued to decompensate and was subsequently intubated w ith what appears to be a witnessed aspiration event by the critical care physician. At any rate, I w as asked to see the patient as his only really telling examination at that time was abdominal pain, a nd he had a CT scan without IV contrast, which showed some free fluid and free air within the abdomen , likely indicative of perforated viscus. On my consultation, the patient is completely obtunded. H e is intubated and sedated. He winces to pain, but really has no other identifiable interactions at this point in time. The remainder of my H and P is done through chart review. PAST MEDICAL HISTORY: COPD, chronic hypoxemic respiratory failure on 2-4 L of oxygen at all times. Chronic pain on chronic high-dose opiates, chronic lumbar spine pressure ulcers, rotator cuff tears, CHF with an ejection fraction of 70%. Chronic venous stasis dermatitis, hypertension, hyperlipidemia , diabetes, history of corynebacterium bacteremia and major depressive disorder. PAST SURGICAL HISTORY: Multiple back surgeries, lumbar spine injections, and a retinal detachment re pair x3. He has some abdominal scars in his abdomen in the inferior portion, which I am unclear as t o what they are. FAMILY HISTORY: Noncontributory. SOCIAL HISTORY: He is . Has home health care for all of his medical comorbidities. He cont inues to smoke. He does not drink alcohol and does not use drugs. PHYSICAL EXAMINATION: VITAL SIGNS: On my examination, his vital signs are significant for a temperature of 36.8, blood pressure of 98/56, on pressors. He is intubated on 100% FiO2, with a resp iratory rate set at 20. CONSTITUTIONAL: He is intubated and sedated. EYES: His pupils are pinpoin t. He has anicteric sclerae. EARS, NOSE, MOUTH AND THROAT: He has dry mucous membranes and an ET t ube within his mouth. CV: He is hypotensive, he does appear to be in a regular rate and rhythm. RE SPIRATORY: He has coarse breath sounds bilaterally. GI: His abdomen is distended. He does wince t o pain. He has a previously well-healed scar in the lower midline. SKIN: Cool and somewhat mottled . MUSCULOSKELETAL: Does not appear to have any tenderness. He has limited joint range of motion in his left arm. NEUROLOGIC: Intubated. PSYCHIATRIC: Unobtainable. LYMPH: No palpable lymphadenop athy. LABORATORY DATA: Leukocytosis to 12,000, H and H 11 and 34. Coags: INR of 1.6, and a base deficit of 3. IMAGING: CT scan of the abdomen and pelvis, the images which were personally reviewed by me, show a small bowel obstruction with a very large right inguinal hernia containing bowel intraabdominal free air, unknown source. ASSESSMENT AND PLAN: A 72-year-old male with sepsis and perforated viscus. The patient is currently critically ill, on pressors and intubated. I had a very kelsy discussion with his daughter, who chintan ears to be his decision maker about this course and told him that the only way he could likely surviv e this would be with an operation. I told her that he likely has perforated small bowel, but that I would not know that until I got into the operating room, and that he may not survive even with an ope ration. After discussing this, she understood and wished to proceed. She gave consent for me to pro ceed emergently to the operating room for exploration. /[id number]/MODL
--- NOTE | 2017-04-13 13:44 | HOSPPROG ---
Hospitalist Progress Note Assessment/Plan: 72 yo M w AF admitted w AF, hypotension and bowel perf bowel perf: s/p surgical resection fascia closed, wound vac in place on vanc cefepime- change to zosyn for anaerobic coverage add fluconazole sepsis: source is gut on pressors and broad spectrum abx this is septic shock AF: on amiodarone OK to hold anticoag given medical complexity and risk of bleeding proph: start LMWH 04/14 hypocalcemia: on protocol pain: fentanyl dispo: critically ill Subjective: case d/w giselle staton, ericka. remains intubated, sedated , on pressors Objective: Vital Signs Temp Pulse Resp BP Pulse Ox 37.5 C 88 24 H 106/46 L 97 04/13/17 13:00 04/13/17 13:00 04/13/17 13:00 04/13/17 13:00 04/13/17 13:00 Microbiology 04/13/17 01:40 - Final Sputum, Induced/Suctioned 04/12/17 23:00 Respiratory Panel (PCR) - Final Nasal, Sinus - Swab No Organism Detected 04/13/17 06:15 Gram Stain - Final Abdomen - Eswab Laboratory Results 04/13/17 08:29 04/13/17 08:29 04/12/17 04/13/17 04/14/17 05:59 05:59 05:59 Intake Total 4983.0 Output Total 1725 Balance 3258.0 PT 20.2 SEC (12.0-15.0) H 04/13/17 08:29 INR 1.72 (0.83-1.16) H 04/13/17 08:29 - Physical Exam Constitutional: other (intubated sedated) Eyes: PERRL, anicteric sclera Ears, Nose, Mouth, Throat: moist mucous membranes, hearing normal Cardiovascular: regular rate and rhythym, no murmur, rub, or gallop Respiratory: no respiratory distress, no rales or rhonchi Gastrointestinal: normoactive bowel sounds, soft, non-tender abdomen Genitourinary: no bladder fullness, ferguson in urethra Skin: warm, normal color Musculoskeletal: full muscle strength, no muscle tenderness Neurologic: AAOx3, sensation intact bilaterally Psychiatric: interacting appropriately, not anxious Lymph, Heme, Immunologic: no cervical LAD, no supraclavicular LAD ICD10 Worksheet Patient Problems: Problems Problem Status Onset Acute exacerbation of congestive heart failure Acute Atrial fibrillation with rapid ventricular response Acute DM type 1 (diabetes mellitus, type 1) Acute Renal failure Acute Altered mental status Acute Aspiration pneumonia Acute COPD (chronic obstructive pulmonary disease) Acute Lumbosacral radiculopathy at L5 Acute Narcotic dependency, continuous Acute Severe sepsis with septic shock Acute Spinal stenosis, lumbar Acute Tobacco dependence Acute
--- NOTE | 2017-04-13 14:10 | PDINTPN ---
Medical Billing Manager Progress Note Assessment/Plan: Assessment: 72-year-old man with multiple underlying medical problems admitted 04/13 with shortness of breath and new onset atrial fibrillation with RVR. Developed sepsis and acute respiratory failure secondary to bowel obstruction/ infarction/perforation. Bowel obstructions secondary to incarceration and infarction, perforation. Status post abdominal surgery with removal of perforated an infarcted segments. Septic shock secondary to abdominal sepsis. Hypotensive, on NE. CVP approximately 12 currently. On steroids, vitamin-C, thiamin. Acute respiratory failure: Secondary to aspiration pneumonitis/pneumonia. Aspiration of gastric/bilious material. Abnormal mental status, secondary to issues above. Improving. Acute renal failure. Creatinine in BUN both a little better this morning. However, urine output remains significantly decreased. Secondary to sepsis, volume depletion/dehydration pre admission New onset atrial fibrillation: On amiodarone. Rate control much improved. Urinary tract infection? Pyuria present on admission. Culture pending. History of multiple medical problems including COPD/ongoing tobacco abuse, type 2 diabetes, systemic hypertension, chronic pain and narcotics, chronic back ulcerations/decubitus, etc. Metabolic: Hypokalemia, hypocalcemia. On replacement protocols. Sliding scale insulin coverage ordered. Anticoagulation: Was on full-dose heparin for atrial fibrillation stroke prevention. This was stopped for surgery in will remain off for now. Prophylactic anticoagulation with subcu heparin will be initiated. Nutrition: None currently. Likely will need TPN. Will address over the next 24-48 hours. Plan: Continue aggressive supportive care in the intensive care unit. Continue fluids, pressors. Keep CVP 12-15 range. Will try 1 dose of Lasix after 500 mLs of 5% albumin. Agree with change of antibiotics to Zosyn. Continue vancomycin for now. Infectious Disease to see. Antifungals likely will be added for abdominal fungal coverage. Continue ventilatory support. Will start subcu heparin, pantoprazole. Continue other medications as we are currently giving him. Follow lab, chest x-ray, blood gas. 45 minutes of critical care time spent directly with the patient this afternoon. Discussed with respiratory, nursing, hospitalist, surgery, and the ICU multi disciplinary team. Subjective: Woke up somewhat, following commands. Indicated he was having some pain. Objective: Vital Signs Temp Pulse Resp BP Pulse Ox 37.5 C 88 24 H 106/46 L 97 04/13/17 13:00 04/13/17 13:00 04/13/17 13:00 04/13/17 13:00 04/13/17 13:00 Microbiology 04/13/17 01:40 - Final Sputum, Induced/Suctioned 04/12/17 23:00 Respiratory Panel (PCR) - Final Nasal, Sinus - Swab No Organism Detected 04/13/17 06:15 Gram Stain - Final Abdomen - Eswab Laboratory Results 04/13/17 08:29 04/13/17 08:29 04/12/17 04/13/17 04/14/17 05:59 05:59 05:59 Intake Total 4983.0 Output Total 1725 Balance 3258.0 PT 20.2 SEC (12.0-15.0) H 04/13/17 08:29 INR 1.72 (0.83-1.16) H 04/13/17 08:29 Laboratory Tests 04/13/17 04/13/17 04/13/17 03:45 08:29 08:29 PT 20.2 H INR 1.72 H APTT 39.6 H D pCO2 pO2 ABG pH O2 Concentration % Respiration Rate Tidal Volume PEEP Calcium 6.3 L Ionized Calcium Total Bilirubin 1.2 AST 39 ALT 26 Albumin 2.0 L Procalcitonin 58.95 H 04/13/17 04/13/17 11:00 11:00 PT INR APTT pCO2 40 H pO2 97 H ABG pH 7.37 O2 Concentration % 100 Respiration Rate 24 Tidal Volume 550 PEEP 8 Calcium Ionized Calcium 0.93 L Total Bilirubin AST ALT Albumin Procalcitonin Physical Exam - Physical Exam General Appearance: other (Sedated, on ventilator. On fentanyl at 50, no propofol at this time) EENT: PERRL/EOMI, ET tube, other (NG to) Neck: normal inspection, No lymphadenopathy (R), No lymphadenopathy (L), No thyromegaly Respiratory: lungs clear (Anteriorly), decreased breath sounds (At bases), other (Central line, right subclavian) Cardiac/Chest: irregularly irregular (AFib it approximately 85) Abdomen: other (Postoperative changes, open, wound VAC in place.), No normal bowel sounds Male Genitalia: other (Knott catheter, decreased urine output persists.) Skin: normal color, warm/dry Extremities: pedal edema, swelling (Lower extremity comma chronic) Neuro/Psych: no motor/sensory deficits (Moves all extremities and follow commands when he woke up), No cognition abnormalities (See above) ICD10 Worksheet Patient Problems: Problems Problem Status Onset Renal failure Acute Tobacco dependence Acute Narcotic dependency, continuous Acute Lumbosacral radiculopathy at L5 Acute Spinal stenosis, lumbar Acute DM type 1 (diabetes mellitus, type 1) Acute Aspiration pneumonia Acute COPD (chronic obstructive pulmonary disease) Acute Severe sepsis with septic shock Acute Altered mental status Acute Acute exacerbation of congestive heart failure Acute Atrial fibrillation with rapid ventricular response Acute
[2017-04-13] MEDS ORDERED: FUROSEMIDE 100 MG/10 ML VIAL IVP ONE (14:11)
--- NOTE | 2017-04-13 14:27 | GOP ---
[f rep st] OPERATIVE REPORT DATE OF OPERATION: 04/13/2017 SURGEON: Venkatesh Avendaño MD [employer] INFORMATION CLERK: None. ANESTHESIA: General endotracheal provided by Dr. Davies. PREOPERATIVE DIAGNOSIS: Perforated viscus. POSTOPERATIVE DIAGNOSIS: 1. Strangulated incarcerated right inguinal hernia containing necrotic cecum. 2. Perforated small bowel. 3. Intraabdominal sepsis and gross contamination. PROCEDURE PERFORMED: 1. Exploratory laparotomy. 2. Groin exploration for right strangulated hernia reduction. 3. Ileocecectomy. 4. Small bowel resection. 5. Open abdomen with bowel in discontinuity. FINDINGS: Gross contamination in all 4 quadrants of GI contents, necrotic cecum within the strangulated right inguinal hernia, completely reduced and resected. Proximal small bowel perforation secondary to obstruction, resected as well. Bowel in discontinuity at 2 [address]. Abdomen left open with ABThera device. SPECIMENS: 1. Ileocecectomy. 2. Small bowel. 3. Fluid taken for culture ESTIMATED BLOOD LOSS: 50 mL. DRAINS: ABThera open abdomen device. DESCRIPTION OF PROCEDURE: The patient was transported critically from the intensive care unit to the operative suite. He was placed on the OR table in supine position. After all anesthesia machines were on and functioning, a [employer] time-out was performed. His abdomen was then widely prepped and draped in typical sterile fashion. I entered the abdomen via a generous midline incision. Once entering the abdomen, I encountered free air and succus. I irrigated and suctioned this out. I began by running the small bowel and identified a proximal perforation site which I initially contained with a single stitch. I then ran the small bowel distally. It appeared that the distal ilium and cecum were stuck within the patient's inguinal hernia. I was unable to reduce this intraabdominally I made a 2nd groin exploration incision just inferior to the right inguinal ligament. I did open up the external oblique and dissected out the area bluntly , which aided in me reducing the hernia successfully. I reduced the hernia. It contained necrotic cecum. I then ran the remainder of the bowel. Identified no other necrotic or compromised sites, although the entire small bowel appeared to be dusky and given the contamination I chose to resect and not reconnect. I first turned my site toward the ileocecectomy. I chose sites on either side of the ascending colon and distal ilium and resected these. I took the mesentery with the Harmonic Scalpel. The specimen was then passed off. The same was done for the small bowel perforation site. I resected it using fires of Endo-TAYLER stapler on either side and took the mesentery successfully with the Harmonic Scalpel. Once this was done, I irrigated the abdomen with 3 L warm saline, noting clear effluent in the suction canister. I then, once ,again ran the small bowel. I identified no other perforation sites or any other significant pathology. I then placed the ABThera wound device within the patient's abdomen. Connected it to the suction canister. I closed my right groin incision. The external oblique I closed with a running 0 Vicryl and skin with manjit over which a sterile dressing was placed. The patient was then taken, intubated, in critical condition back to the intensive care unit. COUNTS: All counts were reported as correct x2. /[id number]/MODL MTDD
--- NOTE | 2017-04-13 14:38 | WOCRNPDOC ---
WOCRMaria Luisa Advanced Assessment Note - Skin Integrity Problem, Advanced Assess Medial Back Pressure Injury Dressing Type: Allevyn Life Dressing Description: Intact Exudate Amount: Scant Exudate Color: Reddish/Yellow Exudate Characteristic(s): Serosanguinous Integumentary Issue Intervention: Dressing Applied, Dressing Changed, Dressing Initialed & Dated Nataly Wound Tissue: Macerated, Scarred Nataly Wound Swelling: Mild Wound Bed Color: Red, Yellow Wound Bed Constitution: Smooth Tissue (20% non-granulating tissue), Adhered Slough (70%), Stable Eschar (10%) Site Odor: None Site Measurement - Head-to-Toe Length X Width X Depth (cm): 4.5cmx1.5cmx slough/ eschar Pressure Injury Stage: Unstageable (Previously documented as a stage 3 during prior admission in September 2016) Pressure Injury Present on Admit: Yes (Documented in H&P) Skin Integrity Problem Comment: Wound noted directly over vertebrae on patient' s medial thoracic spine, appearance presently consistent w/ an unstageable pressure injury. This site was previously documented as a stage 3 last September 2016, and scar tissue surrounding current periwound demonstrates that this is a chronic, full-thickness wound. Applied ManukaHD honey dressing to wound bed to initiate autolysis of necrotic tissue, and covered w/ an Allevyn Life. In addition, patient placed on low air loss sport bed. Wound RN will follow up with patient on Monday 04/16. screw machine tool setter Selena present and assisting. Coccyx Pressure Injury Dressing Type: Open to Air Exudate Amount: None Exudate Characteristic(s): None Integumentary Issue Intervention: Barrier Cream Applied (Calazime) Nataly Wound Tissue: Blanching, Intact Nataly Wound Swelling: None Wound Bed Color: Red Site Odor: None Site Measurement - Head-to-Toe Length X Width X Depth (cm): 0.9nnv2map9.1cm Pressure Injury Stage: Stage 2 Pressure Injury Present on Admit: Yes Skin Integrity Problem Comment: Small area of partial-thickness tissue loss noted over coccyx, consistent in appearance w/ stage 2 pressure injury. Nataly- wound skin intact, but diaphoretic. Applied Calazime cream, and off-loaded patient using TAPS. Wound care will continue to follow this patient. Bilateral Lower Leg Dermatitis Dressing Type: Open to Air Exudate Amount: None Exudate Characteristic(s): None Integumentary Issue Intervention: Lotion/Cream Applied (Attrac-tain cream applied by screw machine tool setter Selena) Skin Integrity Problem Comment: Extensive venous dermatitis noted over bilateral lower extremities, w/ hemosiderin staining throughout. Nursing applied Attrac-tain cream to help exfoliate the skin, and this is an appropriate intervention to continue ongoing.
--- NOTE | 2017-04-13 14:38 | WOCRNPDOC ---
WOCRMaria Luisa Advanced Assessment Note - Skin Integrity Problem, Advanced Assess Medial Back Pressure Injury Dressing Type: Allevyn Life Dressing Description: Intact Exudate Amount: Scant Exudate Color: Reddish/Yellow Exudate Characteristic(s): Serosanguinous Integumentary Issue Intervention: Dressing Applied, Dressing Changed, Dressing Initialed & Dated Nataly Wound Tissue: Macerated, Scarred Nataly Wound Swelling: Mild Wound Bed Color: Red, Yellow Wound Bed Constitution: Smooth Tissue (20% non-granulating tissue), Adhered Slough (70%), Stable Eschar (10%) Site Odor: None Site Measurement - Head-to-Toe Length X Width X Depth (cm): 4.5cmx1.5cmx slough/ eschar Pressure Injury Stage: Unstageable (Previously documented as a stage 3 during prior admission in September 2016) Pressure Injury Present on Admit: Yes (Documented in H&P) Skin Integrity Problem Comment: Wound noted directly over vertebrae on patient' s medial thoracic spine, appearance presently consistent w/ an unstageable pressure injury. This site was previously documented as a stage 3 last September 2016, and scar tissue surrounding current periwound demonstrates that this is a chronic, full-thickness wound. Applied ManukaHD honey dressing to wound bed to initiate autolysis of necrotic tissue, and covered w/ an Allevyn Life. In addition, patient placed on low air loss sport bed. Wound RN will follow up with patient on Monday 04/16. grind operator Selena present and assisting. Coccyx Pressure Injury Dressing Type: Open to Air Exudate Amount: None Exudate Characteristic(s): None Integumentary Issue Intervention: Barrier Cream Applied (Calazime) Nataly Wound Tissue: Blanching, Intact Nataly Wound Swelling: None Wound Bed Color: Red Site Odor: None Site Measurement - Head-to-Toe Length X Width X Depth (cm): [id number] Pressure Injury Stage: Stage 2 Pressure Injury Present on Admit: Yes Skin Integrity Problem Comment: Small area of partial-thickness tissue loss noted over coccyx, consistent in appearance w/ stage 2 pressure injury. Nataly- wound skin intact, but diaphoretic. Applied Calazime cream, and off-loaded patient using TAPS. Wound care will continue to follow this patient. Bilateral Lower Leg Dermatitis Dressing Type: Open to Air Exudate Amount: None Exudate Characteristic(s): None Integumentary Issue Intervention: Lotion/Cream Applied (Attrac-tain cream applied by grind operator Selena) Skin Integrity Problem Comment: Extensive venous dermatitis noted over bilateral lower extremities, w/ hemosiderin staining throughout. Nursing applied Attrac-tain cream to help exfoliate the skin, and this is an appropriate intervention to continue ongoing.
--- NOTE | 2017-04-13 14:38 | WOCRNPDOC ---
WOCRMaria Luisa Advanced Assessment Note - Skin Integrity Problem, Advanced Assess Medial Back Pressure Injury Dressing Type: Allevyn Life Dressing Description: Intact Exudate Amount: Scant Exudate Color: Reddish/Yellow Exudate Characteristic(s): Serosanguinous Integumentary Issue Intervention: Dressing Applied, Dressing Changed, Dressing Initialed & Dated Nataly Wound Tissue: Macerated, Scarred Nataly Wound Swelling: Mild Wound Bed Color: Red, Yellow Wound Bed Constitution: Smooth Tissue (20% non-granulating tissue), Adhered Slough (70%), Stable Eschar (10%) Site Odor: None Site Measurement - Head-to-Toe Length X Width X Depth (cm): 4.5cmx1.5cmx slough/ eschar Pressure Injury Stage: Unstageable (Previously documented as a stage 3 during prior admission in September 2016) Pressure Injury Present on Admit: Yes (Documented in H&P) Skin Integrity Problem Comment: Wound noted directly over vertebrae on patient' s medial thoracic spine, appearance presently consistent w/ an unstageable pressure injury. This site was previously documented as a stage 3 last September 2016, and scar tissue surrounding current periwound demonstrates that this is a chronic, full-thickness wound. Applied ManukaHD honey dressing to wound bed to initiate autolysis of necrotic tissue, and covered w/ an Allevyn Life. In addition, patient placed on low air loss sport bed. Wound RN will follow up with patient on Monday 04/16. take away man Selena present and assisting. Coccyx Pressure Injury Dressing Type: Open to Air Exudate Amount: None Exudate Characteristic(s): None Integumentary Issue Intervention: Barrier Cream Applied (Calazime) Nataly Wound Tissue: Blanching, Intact Nataly Wound Swelling: None Wound Bed Color: Red Site Odor: None Site Measurement - Head-to-Toe Length X Width X Depth (cm): 0.2xwx7jrp5.1cm Pressure Injury Stage: Stage 2 Pressure Injury Present on Admit: Yes Skin Integrity Problem Comment: Small area of partial-thickness tissue loss noted over coccyx, consistent in appearance w/ stage 2 pressure injury. Nataly- wound skin intact, but diaphoretic. Applied Calazime cream, and off-loaded patient using TAPS. Wound care will continue to follow this patient. Bilateral Lower Leg Dermatitis Dressing Type: Open to Air Exudate Amount: None Exudate Characteristic(s): None Integumentary Issue Intervention: Lotion/Cream Applied (Attrac-tain cream applied by take away man Selena) Skin Integrity Problem Comment: Extensive venous dermatitis noted over bilateral lower extremities, w/ hemosiderin staining throughout. Nursing applied Attrac-tain cream to help exfoliate the skin, and this is an appropriate intervention to continue ongoing.
[2017-04-13] MEDS: PIPERACILLIN/TAZO 2.25 GM/DEX 50 ML IV SCH ×3 (15:07→23:46)
[2017-04-13] MEDS: PANTOPRAZOLE SODIUM 40 MG in NS 100 ML IV SCH (15:30)
[2017-04-13] MEDS ORDERED: POTASSIUM Cl (KCl) 50 ML IV ONE (15:38)
[2017-04-13] MEDS ORDERED: POTASSIUM Cl (KCl) 20 MEQ in NS 50 ML IV ONE (15:45)
--- NOTE | 2017-04-13 15:47 | ASMTCMCOM ---
CM Note CM Note Notes: Pt admitted with hypotension and bowel perf/sepsis. Pt came from home where he lives alone. Went to surg earlier today for bowel perf, currently vented. Pt has dtr, Rosalia who is local and very supportive and also has sister. Spoke w/Martine Perez from [facility] who follows pt. Pt [facility] current w[facility] prior to admit for nursing services. Notified Andrea at [facility] of pt's admit. Too early to know dc needs but CM w/f. Date Signed: 04/13/2017 03:46 PM Electronically Signed By:Dalila Lakhani RN
[2017-04-13] MEDS: HEPARIN 5,000 UNIT/0.5 ML SYR SC SCH ×2 (15:58→23:47)
[2017-04-13] MEDS: CHLORHEXIDINE GLUCONATE 15 ML UDL PO SCH ×2 (17:55→23:48)
--- NOTE | 2017-04-13 18:13 | GCON ---
[f rep st] CONSULTATION INPATIENT INFECTIOUS DISEASE CONSULTATION. REFERRING PHYSICIAN: Venkatesh Avendaño MD REASON FOR CONSULTATION: Peritonitis sepsis. HISTORY OF PRESENT ILLNESS: Patient is a 72-year-old male, who came to [facility] the emergency room yesterday evening with the complaint of dyspnea. Patient does have a history of COPD and is chronically on 2-4 L of oxygen. Patient met qualifications for severe sepsis and shoc k. Evaluation in the emergency room brought up the possibility of pneumonia or urinary tract infecti on. The patient received Levaquin empirically in the emergency department. He was given both vancom ycin and cefepime in addition. He was admitted to the intensive care unit. New onset atrial fibrill ation was also diagnosed. The patient was noted to have abdominal concerns, and a CT scan was obtain ed overnight. This showed pneumoperitoneum and a suspected localized perforation at the pylorus-duod enal junction. Patient was taken to the operating room urgently overnight. He was found to have a s trangulated incarcerated right inguinal hernia containing necrotic cecum; also noted to have a perfor ated small bowel and intraabdominal sepsis with gross contamination. He was admitted back to the ICU after surgery on pressor support. He has been maintained, from an antibiotic standpoint, on vancomy nena and Zosyn. He is currently intubated and not conversational. PAST MEDICAL HISTORY: 1. COPD. 2. Chronic pain. 3. Congestive heart failure of diastolic nature. 4. Venous stasis dermatitis. 5. Hypertension. 6. Hyperlipidemia. 7. Type 2 diabetes. 8. History of corynebacterium bacteremia. 9. Major depressive disorder. PAST SURGICAL HISTORY: 1. As above. 2. Multiple back surgeries. 3. Status post retinal detachment repair multiple times. ANTIBIOTICS: 1. Vancomycin. 2. Zosyn. ALLERGIES: No known drug allergies. SOCIAL HISTORY: Patient is independent and lives alone. He utilizes a walker for ambulation. He is on 2-4 L of oxygen continuously. Patient does have a daughter locally, who provides some support. The patient has an ongoing tobacco user and uses a pack daily of cigarettes. Only occasional alcohol use. No drugs. REVIEW OF SYSTEMS: Other than that detailed above in history of present illness, a comprehensive 10- system review is negative. PHYSICAL EXAMINATION: VITAL SIGNS: Temperature maximum is 37.5, temperature current is 37.5. Heart rate is 88, respiratory rate is 24, blood pressure is 106/46. GENERAL: The patient is a well-formed, well-nourished, older male, in no acute distress. He is intu bated and sedated. HEENT: Normocephalic for age. Atraumatic. No scleral icterus. ET tube is in the correct place. EYES: Lids and conjunctivae are within normal limits. Pupils are equal bilaterally. NECK: Supple. No meningismus. LUNGS: Clear to auscultation bilaterally with reasonable effort. HEART: Regular rate and rhythm. No tachycardia. No murmur. Patient has no significant pedal edema bilaterally. ABDOMEN: Soft, distended postoperative. Drains in place. SKIN: Warm and dry to the touch. No rash or lesion. MUSCULOSKELETAL: No muscle tenderness is noted. No joint line effusion or arthritis seen. NEUROLOGIC: Unable to be performed secondary to sedated status. LABORATORY DATA: CBC dated 04/13/2017 showing a white blood cell count 5.8, hemoglobin 11.7, hematoc rit of 35.8, platelet count of 227. Differential is 16% segmented neutrophils, 32% band forms, 9% ly mphocytes, 8% monocytes, and 31% metamyelocytes. Serum chemistries: Sodium of 135, potassium 3.3, chloride of 101, bicarbonate 21, BUN of 45, and cre atinine of 1.7. AST is 39. ALT is 26. Influenza A and B PCR on 04/12/2017 is negative. MICROBIOLOGIC DATA: Patient has blood cultures dated 04/12/17 pending. Patient has abdominal cultur es dated 04/13/2017, which are also pending. ASSESSMENT: Septic shock and peritonitis secondary to necrotic cecum due to strangulation and ruptur ed bowel proximal to this. Covering currently with vancomycin and Zosyn, which is reasonable coverag e at present. Will add caspofungin for fungal coverage. Fluconazole to be avoided secondary to inte ractions with amiodarone. We will continue that regimen of coverage and follow his improvement onwar d. PLAN: 1. Continue vancomycin and Zosyn. 2. Follow vancomycin trough levels. 3. Add micafungin 100 mg daily. 4. Follow clinical course and hemodynamic parameters. /[id number]/MODL
[2017-04-13] MEDS: fentaNYL/NACL 100 ML IV SCH (20:49)
[2017-04-13] MEDS ORDERED: ACLIDINIUM BROMIDE IH SCH (21:00)
[2017-04-13] MEDS: AMIODARONE HCL 200 ML IV SCH (21:22)
[2017-04-14] MEDS: VANCOMYCIN HCL/NORMAL SALINE 250 ML IV SCH ×2 (00:54→23:32)
[2017-04-14] MEDS ORDERED: POTASSIUM Cl (KCl) 50 ML IV ONE (02:08)
[2017-04-14] MEDS ORDERED: POTASSIUM Cl (KCl) 100 ML IV ONE (02:30)
[2017-04-14] MEDS: INSULIN REGULAR HUMAN 100 UNIT/ML SC SCH ×4 (02:48→23:10)
[2017-04-14] MEDS: CHLORHEXIDINE GLUCONATE 15 ML UDL PO SCH ×6 (02:49→19:49)
[2017-04-14] MEDS: ASCORBIC ACID 1,500 MG in D5W 100 ML IV SCH ×4 (04:33→21:15)
[2017-04-14] MEDS: ALBUTEROL 200 PUFFS/18 GM MDI IH SCH ×6 (04:44→23:16)
[2017-04-14 05:30] LABS: PLATELET COUNT 185 10^3/uL (150-400)
[2017-04-14] MEDS: HEPARIN 5,000 UNIT/0.5 ML SYR SC SCH ×3 (06:23→21:15)
[2017-04-14] MEDS: HYDROCORTISONE 100 MG/2 ML VIAL IVP SCH ×4 (06:23→23:03)
[2017-04-14] MEDS: PIPERACILLIN/TAZO 2.25 GM/DEX 50 ML IV SCH ×4 (06:23→23:03)
[2017-04-14] MEDS ORDERED: CALCIUM GLUCONATE 50 ML IV ONE (06:45)
[2017-04-14] MEDS ORDERED: MAGNESIUM SULF 1 GM/DEXTROSE 100 ML IV ONE (06:46)
[2017-04-14] MEDS: AMIODARONE HCL 200 ML IV SCH (07:54)
[2017-04-14] MEDS: NS 1,000 ML IV SCH ×2 (08:05→21:17)
[2017-04-14] MEDS: POTASSIUM Cl (KCl) 50 ML IV SCH ×9 (08:07→20:00)
[2017-04-14] MEDS: NICOTINE 21 MG/24 HR PATCH TD SCH (09:08)
[2017-04-14] MEDS: THIAMINE HCL 100 MG in NS 100 ML IV SCH (09:09)
[2017-04-14] MEDS: PANTOPRAZOLE SODIUM 40 MG in NS 100 ML IV SCH (09:09)
[2017-04-14] MEDS: MICAFUNGIN NA 100 MG in NS 100 ML IV SCH (09:09)
--- NOTE | 2017-04-14 10:30 | PDINTPN ---
Chief Librarian Music Department Progress Note Assessment/Plan: Assessment: 72-year-old man with multiple underlying medical problems admitted 04/13 with shortness of breath and new onset atrial fibrillation with RVR. Developed sepsis and acute respiratory failure secondary to bowel obstruction/infarction/ perforation. Bowel obstructions secondary to incarceration and infarction, perforation. Status post abdominal surgery with removal of perforated an infarcted segments. Septic shock secondary to abdominal sepsis. Improving. Hypotension resolved. Off norepinephrine.. CVP approximately 11. On steroids, vitamin-C, thiamin. Acute respiratory failure: Secondary to aspiration pneumonitis/pneumonia. Aspiration of gastric/bilious material. Abnormal mental status, secondary to issues above. Improving. Acute renal failure. Creatinine and BUN both improving. Urine output starting to picker machine operator. Secondary to sepsis, volume depletion/dehydration pre admission New onset atrial fibrillation: On amiodarone. Rate control much improved. Urinary tract infection? Klebsiella in urine as well as from abdominal swab. History of multiple medical problems including COPD/ongoing tobacco abuse, type 2 diabetes, systemic hypertension, chronic pain and narcotics, chronic back ulcerations/decubitus, etc. Metabolic: Hypokalemia, hypocalcemia. On replacement protocols. On sliding scale insulin coverage. Anticoagulation: Was on full-dose heparin for atrial fibrillation stroke prevention. This was stopped for surgery in will remain off for now. Prophylactic anticoagulation with subcu heparin will be initiated. Nutrition: None currently. Will start TPN tomorrow.. Plan: Continue supportive care in the intensive care unit. Continue fluids, pressors. Keep CVP 12-15 range. Will try 1 dose of Lasix after 500 mLs of 5% albumin. Agree with change of antibiotics to Zosyn, vancomycin, mycofungin. Continue ventilatory support, can initiate short CPAP trials. Cont subcu heparin, pantoprazole. Follow lab, chest x-ray, blood gas. 50 minutes of critical care time spent directly with the patient this afternoon. Discussed with respiratory, nursing, hospitalist, surgery, and the ICU multi disciplinary team. Subjective: arousable, responsive. Complains of abdominal pain. Objective: Vital Signs Temp Pulse Resp BP Pulse Ox 36.4 C 94 24 H 141/68 H 94 04/14/17 08:00 04/14/17 09:00 04/14/17 09:00 04/14/17 09:00 04/14/17 09:00 Microbiology 04/13/17 01:40 - Final Sputum, Induced/Suctioned 04/12/17 23:00 Respiratory Panel (PCR) - Final Nasal, Sinus - Swab No Organism Detected 04/13/17 06:15 Gram Stain - Final Abdomen - Eswab Laboratory Results 04/14/17 05:10 04/14/17 05:10 04/13/17 04/14/17 04/15/17 05:59 05:59 05:59 Intake Total 4983.0 7808.9 Output Total 1725 2775 60 Balance 3258.0 5033.9 -60 PT 20.2 SEC (12.0-15.0) H 04/13/17 08:29 INR 1.72 (0.83-1.16) H 04/13/17 08:29 Microbiology 04/12/17 20:45 Blood Blood Panel (PCR) - Final Staph Coagulase Negative 04/12/17 20:45 Blood Blood Culture - Preliminary 04/12/17 20:45 Blood Gram Positive Cocci Clusters Laboratory Tests 04/14/17 04/14/17 04/14/17 05:10 05:10 05:10 pCO2 37 pO2 65 ABG pH 7.36 Mixed VBG O2 Saturation 86 H Calcium 6.9 L Ionized Calcium 1.05 L Phosphorus 4.2 Magnesium 1.7 Total Bilirubin 0.8 AST 30 ALT 24 Albumin 2.1 L CXR: Bilateral infiltrates persist, about the same to slightly increased. Right greater than left. Large heart. Lines and tubes in good position. Physical Exam - Physical Exam General Appearance: alert, mild distress, other ( On ventilator) EENT: PERRL/EOMI, ET tube, other ( NG) Neck: normal inspection ( no obvious JVD) Respiratory: lungs clear, decreased breath sounds ( at bases), rales ( few), No rhonchi, No wheezing Cardiac/Chest: irregularly irregular ( good rate control at approximately 90) Abdomen: other ( wound VAC in place. Quiet postoperatively. Tender.) Male Genitalia: other ( Knott catheter n place. Improving urine output. Input remains greater than output over the last 2 days.) Skin: normal color, warm/dry Extremities: pedal edema, swelling ( Chronic lower extremity edema and associated skin changes) Neuro/Psych: no motor/sensory deficits, No cognition abnormalities ICD10 Worksheet Patient Problems: Problems Problem Status Onset Acute exacerbation of congestive heart failure Acute Atrial fibrillation with rapid ventricular response Acute DM type 1 (diabetes mellitus, type 1) Acute Renal failure Acute Altered mental status Acute Aspiration pneumonia Acute COPD (chronic obstructive pulmonary disease) Acute Lumbosacral radiculopathy at L5 Acute Narcotic dependency, continuous Acute Severe sepsis with septic shock Acute Spinal stenosis, lumbar Acute Tobacco dependence Acute
[2017-04-14] MEDS: fentaNYL/NACL 100 ML IV SCH ×2 (11:04→19:52)
--- NOTE | 2017-04-14 11:06 | PCMIDPN ---
Assessment/Plan: Assessment: Septic shock secondary to peritonitis after incarcerated cecum became necrotic. We have been able to wean his pressors completely off. Remains intubated. Currently being managed on vancomycin, Zosyn and micafungin. No changes planned present. Plan: 1. Continue vancomycin, Zosyn and micafungin. 2. Follow-up clinical course. 04/14/17 11:03 Subjective: Patient remains intubated and sedated. He is off all pressors. Tolerating antibiotics without issue. Oxygen fraction down to 40%. Objective: Vancomycin # 2 Zosyn # 1 micafungin # 1 Vital Signs Temp Pulse Resp BP Pulse Ox 36.4 C 94 24 H 141/68 H 94 04/14/17 08:00 04/14/17 09:00 04/14/17 09:00 04/14/17 09:00 04/14/17 09:00 Microbiology 04/13/17 06:15 Gram Stain - Final Abdomen - Eswab 04/13/17 01:40 - Final Sputum, Induced/Suctioned 04/12/17 23:00 Respiratory Panel (PCR) - Final Nasal, Sinus - Swab No Organism Detected Laboratory Results 04/14/17 05:10 04/14/17 05:10 04/13/17 04/14/17 04/15/17 05:59 05:59 05:59 Intake Total 4983.0 7808.9 Output Total 1725 2775 60 Balance 3258.0 5033.9 -60 - Physical Exam General Appearance: WD/WN, alert, no apparent distress, non-toxic Respiratory: lungs clear, normal breath sounds, No respiratory distress Cardiac/Chest: irregularly irregular, No regular rate, rhythm, No tachycardia Extremities: non-tender, normal inspection Skin: normal color, warm/dry, No rash ICD10 Worksheet Patient Problems: Problems Problem Status Onset Acute exacerbation of congestive heart failure Acute Atrial fibrillation with rapid ventricular response Acute DM type 1 (diabetes mellitus, type 1) Acute Renal failure Acute Altered mental status Acute Aspiration pneumonia Acute COPD (chronic obstructive pulmonary disease) Acute Lumbosacral radiculopathy at L5 Acute Narcotic dependency, continuous Acute Severe sepsis with septic shock Acute Spinal stenosis, lumbar Acute Tobacco dependence Acute
--- NOTE | 2017-04-14 12:46 | SOAPPROG ---
SOAP Progress Note Assessment/Plan: Assessment: 72-YEAR-OLD MALE WITH OPEN ABDOMEN AFTER PERFORATED BOWEL HAD INCARCERATED INGUINAL HERNIA/DOING REASONABLY WELL/STILL ON VENTILATOR/WOUND VAC IN PLACE ABDOMEN RELATIVELY SOFT/AFEBRILE/LAB STABLE CHEST RELATIVELY CLEAR/COR REGULAR RHYTHM Plan: CONSIDER LAPAROTOMY FOR WASHOUT AND POSSIBLE CLOSURE IN THE NEXT 12:48 P.M. FORTY EIGHT HOURS BEFORE EXTUBATION 04/14/17 12:45 Objective: Vital Signs Temp Pulse Resp BP Pulse Ox 36.6 C 76 22 H 125/54 H 97 04/14/17 12:00 04/14/17 12:00 04/14/17 12:00 04/14/17 12:00 04/14/17 12:00 Microbiology 04/13/17 06:15 Gram Stain - Final Abdomen - Eswab 04/13/17 01:40 - Final Sputum, Induced/Suctioned 04/12/17 23:00 Respiratory Panel (PCR) - Final Nasal, Sinus - Swab No Organism Detected Laboratory Results 04/14/17 05:10 04/14/17 12:00 04/13/17 04/14/17 04/15/17 05:59 05:59 05:59 Intake Total 4983.0 7808.9 Output Total 1725 2775 600 Balance 3258.0 5033.9 -600 PT 20.2 SEC (12.0-15.0) H 04/13/17 08:29 INR 1.72 (0.83-1.16) H 04/13/17 08:29 ICD10 Worksheet Patient Problems: Problems Problem Status Onset Acute exacerbation of congestive heart failure Acute Atrial fibrillation with rapid ventricular response Acute DM type 1 (diabetes mellitus, type 1) Acute Renal failure Acute Altered mental status Acute Aspiration pneumonia Acute COPD (chronic obstructive pulmonary disease) Acute Lumbosacral radiculopathy at L5 Acute Narcotic dependency, continuous Acute Severe sepsis with septic shock Acute Spinal stenosis, lumbar Acute Tobacco dependence Acute
[2017-04-14] MEDS: PROPOFOL/EMULSION 100 ML IV SCH (13:31)
--- NOTE | 2017-04-14 15:00 | HOSPPROG ---
Hospitalist Progress Note Assessment/Plan: * Septic shock due to bowel perf with peritonitis/gross contamination -now weaned off pressors -GNR in blood - await sensitivities -Vanco, Zosyn, micafungin * Incarcerated inguinal hernia containing necrotic cecum, with SB perf s/p resection -back to OR tomorrow for closure * Afib s/p failed cardioversion -s/p amiodarone -ECHO pending -consider anticoagulation when stable * Acute on chronic respiratory failure -wean vent after OR tomorrow * COPD - chronic O2 2-4 L * Chronic narcotic dependency due to lumbar spinal stenosis -holding PO narcotics Subjective: Awake on vent - no events Objective: Vital Signs Temp Pulse Resp BP Pulse Ox 36.6 C 93 24 H 102/53 L 94 04/14/17 12:00 04/14/17 14:00 04/14/17 14:00 04/14/17 14:00 04/14/17 14:00 Microbiology 04/13/17 06:15 Gram Stain - Final Abdomen - Eswab 04/13/17 01:40 - Final Sputum, Induced/Suctioned Laboratory Results 04/14/17 05:10 04/14/17 12:00 04/13/17 04/14/17 04/15/17 05:59 05:59 05:59 Intake Total 4983.0 7808.9 Output Total 1725 2775 600 Balance 3258.0 5033.9 -600 PT 20.2 SEC (12.0-15.0) H 04/13/17 08:29 INR 1.72 (0.83-1.16) H 04/13/17 08:29 IV fentanyl + IV propofol IV amiodarone D/W Dr. Julian Harris ICU rounds regarding plan of care CT abd - pneumoperitoneum, chronic pancreatitis - Physical Exam Constitutional: no apparent distress, appears nourished, not in pain Cardiovascular: regular rate and rhythym, no murmur, rub, or gallop Respiratory: no respiratory distress, no rales or rhonchi, clear to auscultation Gastrointestinal: distension, No ascites Skin: no rashes or abrasions, no fluctuance, no induration Psychiatric: interacting appropriately, No encephalopathic, No anxious, No depressed, No agitated ICD10 Worksheet Patient Problems: Problems Problem Status Onset Acute exacerbation of congestive heart failure Acute Atrial fibrillation with rapid ventricular response Acute DM type 1 (diabetes mellitus, type 1) Acute Renal failure Acute Altered mental status Acute Aspiration pneumonia Acute COPD (chronic obstructive pulmonary disease) Acute Lumbosacral radiculopathy at L5 Acute Narcotic dependency, continuous Acute Severe sepsis with septic shock Acute Spinal stenosis, lumbar Acute Tobacco dependence Acute
[2017-04-14] MEDS ORDERED: METOPROLOL TARTRATE 5 MG/5 ML INJ IVP PRN (16:19)
[2017-04-15] MEDS: CHLORHEXIDINE GLUCONATE 15 ML UDL PO SCH ×6 (00:09→20:06)
[2017-04-15] MEDS: PROPOFOL/EMULSION 100 ML IV SCH ×4 (00:11→20:06)
[2017-04-15] MEDS: ASCORBIC ACID 1,500 MG in D5W 100 ML IV SCH ×4 (03:41→22:02)
[2017-04-15] MEDS: fentaNYL/NACL 100 ML IV SCH ×3 (03:42→20:07)
[2017-04-15 04:14] LABS: PLATELET COUNT 142 10^3/uL (150-400)
[2017-04-15] MEDS: POTASSIUM Cl (KCl) 50 ML IV SCH ×7 (04:58→20:36)
[2017-04-15] MEDS: HYDROCORTISONE 100 MG/2 ML VIAL IVP SCH ×4 (05:06→23:27)
[2017-04-15] MEDS: HEPARIN 5,000 UNIT/0.5 ML SYR SC SCH ×3 (05:06→22:01)
[2017-04-15] MEDS: PIPERACILLIN/TAZO 2.25 GM/DEX 50 ML IV SCH ×4 (05:06→23:27)
[2017-04-15] MEDS: INSULIN REGULAR HUMAN 100 UNIT/ML SC SCH ×4 (05:07→23:27)
[2017-04-15] MEDS: ALBUTEROL 200 PUFFS/18 GM MDI IH SCH ×5 (05:19→20:49)
[2017-04-15] MEDS: NS 1,000 ML IV SCH (05:24)
[2017-04-15] MEDS: THIAMINE HCL 100 MG in NS 100 ML IV SCH (08:19)
[2017-04-15] MEDS: NICOTINE 21 MG/24 HR PATCH TD SCH (08:19)
[2017-04-15] MEDS: PANTOPRAZOLE SODIUM 40 MG in NS 100 ML IV SCH (08:19)
[2017-04-15] MEDS: MICAFUNGIN NA 100 MG in NS 100 ML IV SCH (08:19)
[2017-04-15] MEDS ORDERED: FUROSEMIDE 40 MG/4 ML VIAL IVP ONE (10:20)
[2017-04-15] MEDS ORDERED: D10W 1,000 ML IV PRN (10:21)
[2017-04-15] MEDS ORDERED: MIDAZOLAM 2 MG/2 ML VIAL ONE (10:41)
[2017-04-15] MEDS: FUROSEMIDE 40 MG/4 ML VIAL IVP SCH ×2 (11:02→16:17)
--- NOTE | 2017-04-15 11:09 | PDCARPN ---
Cardiology Progress Note Assessment/Plan: Assessment/plan: 72-year-old male with COPD and diabetes. He was admitted on April 12 with septic shock related to incarcerated inguinal hernia and subsequent bowel perforation with peritonitis and ultimately gram-negative elvis bacteremia. He initially required pressor support and remains intubated. He is now off pressors. Upon admission he was also in rapid atrial fibrillation and had several attempts at cardioversion which were unsuccessful. He was placed on IV amiodarone. He ultimately converted to sinus rhythm, and now appears to be in rate controlled atrial fibrillation but is off amiodarone. He has been to the operating room for surgical repair of his bowel perforation and will need to return to the OR for washout and possible closure. 1. Atrial fibrillation: EKG now to confirm his rhythm. It is also possible that he is having sinus rhythm with multiple PACs. If his heart rate is persistently above 100 would restart IV amiodarone with the intent to initiate oral amiodarone once he is taking oral medications, which may be quite some time given the status of his bowels. No systemic anticoagulation for now as he needs to go back to the OR. 2. Septic shock related to bowel perforation: Followed by infectious disease. He is currently off pressors. 3. Respiratory failure:Remains on the ventilator. Agree with initiation of diuresis as his BNP is elevated, chest x-ray appears to have pulmonary congestion and pleural effusions. Echocardiogram with preserved LV systolic function, so there is certainly some element of diastolic dysfunction in the setting of massive fluid resuscitation related to his sepsis. He also has underlying COPD which may be contributing to respiratory failure. 4. diabetes: Per Internal Medicine 5. Borderline troponin upon admission: Likely related to physiological stress and atrial fibrillation. Could consider further risk stratification once he is over his acute illness. 04/15/17 11:15 Subjective: Patient is intubated and sedated. History is from chart review and discussion with Dr. Harris and Dr. Churchill Reviewed/Discussed With: other (Dr. Harris. Dr. Churchill) Objective: Vital Signs (8 Hrs) Temp Pulse Resp BP Pulse Ox 04/15/17 10:00 81 24 H 143/76 H 97 04/15/17 09:00 78 24 H 124/54 H 97 04/15/17 08:10 78 24 H 97 04/15/17 08:00 36.7 C 86 24 H 125/76 H 96 09/24/17 07:00 84 24 H 132/64 H 96 04/15/17 06:00 36.5 C 83 24 H 120/66 94 04/15/17 05:25 81 93 04/15/17 05:00 79 16 115/65 97 04/15/17 04:00 36.5 C 78 24 H 116/57 L 100 04/15/17 03:00 80 24 H 120/66 94 Intake/Output (24 Hrs) 04/14/17 04/15/17 04/16/17 05:59 05:59 05:59 Intake Total 7808.9 4359 Output Total 2775 3350 200 Balance 5033.9 1009 -200 Intake: Oral (ml) 0 IV Intake (ml) 308 IV Infused (ml) 7808.9 4051 Albumin 5% 500 ml @ As 1000 Directed IV ONCE ONE Rx#: [id number] Amiodarone HCl 540 mg In 598 208 D5w 300 ml @ 16.667 mls/ hr IV ONCE@0430 ONE Rx#: [id number] Ascorbic Acid 1,500 mg In 201 200 D5w 100 ml @ 206 mls/hr IV Q6H [facility] Rx#:[id number] Heparin/Dextrose 500 ml @ 0 Per Protocol IV CONT [facility] Rx#:[id number] Norepinephrine/Ns 500 ml 2541 218 @ Titrate IV CONT [facility] Rx# :[id number] Ns 1,000 ml @ 100 mls/hr 3340 3062 IV CONT [facility] Rx#: [id number] Propofol/Emulsion 100 ml 0 104 @ Per Protocol IV CONT [facility] Rx#:[id number] fentaNYL/NACL 100 ml @ 128.9 259 Per Protocol IV CONT [facility] Rx#:[id number] Output: Urine (ml) 2600 1850 200 Catheter 2600 1850 200 NG Tube Output (ml) 75 700 Large Bore (>12 [place]) 75 700 Left Naris Stomach Wound Vac Output (ml) 100 800 Abdomen Wound Vac 100 800 Other: Weight 83.9 kg 96.5 kg Number of Stools Catheter 0 Intubated and sedated. Irregular regular rhythm without murmurs. No S3. Lungs rhonchorous breath sounds anteriorly and laterally extremities are warm and well perfused. Stigmata of chronic venous insufficiency. Trace to 1+ edema of both ankles. CXR: CHF, bilateral pleural effusions Result Diagrams: 04/15/17 03:45 04/15/17 03:45 Cardiac Labs: Cardiac Lab Results (72 Hrs) 04/13/17 03:45 CK-MB (CK-2) Fraction 10.60 H Troponin I 0.151 H EKG: Admission EKG reviewed: Atrial fibrillation with rapid ventricular response. Telemetry: Irregular rate controlled Rhythm. Either AF or sinus with multiple PACS and diminuitive p waves Echocardiogram: Echocardiogram dated 04/14/2017 reviewed. This report has not crossed over into [employer]. Normal LV size and normal LV systolic function without obvious regional wall motion abnormalities. Mild tricuspid regurgitation with normal estimated pulmonary pressure. Trivial anterior pericardial effusion without tamponade. ICD10 Worksheet Patient Problems: Problems Problem Status Onset Renal failure Acute Tobacco dependence Acute Narcotic dependency, continuous Acute Lumbosacral radiculopathy at L5 Acute Spinal stenosis, lumbar Acute DM type 1 (diabetes mellitus, type 1) Acute Aspiration pneumonia Acute COPD (chronic obstructive pulmonary disease) Acute Severe sepsis with septic shock Acute Altered mental status Acute Acute exacerbation of congestive heart failure Acute Atrial fibrillation with rapid ventricular response Acute
--- NOTE | 2017-04-15 11:09 | PDCARPN ---
Cardiology Progress Note Assessment/Plan: Assessment/plan: 72-year-old male with COPD and diabetes. He was admitted on April 12 with septic shock related to incarcerated inguinal hernia and subsequent bowel perforation with peritonitis and ultimately gram-negative elvis bacteremia. He initially required pressor support and remains intubated. He is now off pressors. Upon admission he was also in rapid atrial fibrillation and had several attempts at cardioversion which were unsuccessful. He was placed on IV amiodarone. He ultimately converted to sinus rhythm, and now appears to be in rate controlled atrial fibrillation but is off amiodarone. He has been to the operating room for surgical repair of his bowel perforation and will need to return to the OR for washout and possible closure. 1. Atrial fibrillation: EKG now to confirm his rhythm. It is also possible that he is having sinus rhythm with multiple PACs. If his heart rate is persistently above 100 would restart IV amiodarone with the intent to initiate oral amiodarone once he is taking oral medications, which may be quite some time given the status of his bowels. No systemic anticoagulation for now as he needs to go back to the OR. 2. Septic shock related to bowel perforation: Followed by infectious disease. He is currently off pressors. 3. Respiratory failure:Remains on the ventilator. Agree with initiation of diuresis as his BNP is elevated, chest x-ray appears to have pulmonary congestion and pleural effusions. Echocardiogram with preserved LV systolic function, so there is certainly some element of diastolic dysfunction in the setting of massive fluid resuscitation related to his sepsis. He also has underlying COPD which may be contributing to respiratory failure. 4. diabetes: Per Internal Medicine 5. Borderline troponin upon admission: Likely related to physiological stress and atrial fibrillation. Could consider further risk stratification once he is over his acute illness. 04/15/17 11:15 Subjective: Patient is intubated and sedated. History is from chart review and discussion with Dr. Harris and Dr. Churchill Reviewed/Discussed With: other (Dr. Harris. Dr. Churchill) Objective: Vital Signs (8 Hrs) Temp Pulse Resp BP Pulse Ox 04/15/17 10:00 81 24 H 143/76 H 97 04/15/17 09:00 78 24 H 124/54 H 97 04/15/17 08:10 78 24 H 97 04/15/17 08:00 36.7 C 86 24 H 125/76 H 96 09/24/17 07:00 84 24 H 132/64 H 96 04/15/17 06:00 36.5 C 83 24 H 120/66 94 04/15/17 05:25 81 93 04/15/17 05:00 79 16 115/65 97 04/15/17 04:00 36.5 C 78 24 H 116/57 L 100 04/15/17 03:00 80 24 H 120/66 94 Intake/Output (24 Hrs) 04/14/17 04/15/17 04/16/17 05:59 05:59 05:59 Intake Total 7808.9 4359 Output Total 2775 3350 200 Balance 5033.9 1009 -200 Intake: Oral (ml) 0 IV Intake (ml) 308 IV Infused (ml) 7808.9 4051 Albumin 5% 500 ml @ As 1000 Directed IV ONCE ONE Rx#: [id number] Amiodarone HCl 540 mg In 598 208 D5w 300 ml @ 16.667 mls/ hr IV ONCE@0430 ONE Rx#: [id number] Ascorbic Acid 1,500 mg In 201 200 D5w 100 ml @ 206 mls/hr IV Q6H [facility] Rx#:[id number] Heparin/Dextrose 500 ml @ 0 Per Protocol IV CONT [facility] Rx#:[id number] Norepinephrine/Ns 500 ml 2541 218 @ Titrate IV CONT [facility] Rx# :[id number] Ns 1,000 ml @ 100 mls/hr 3340 3062 IV CONT [facility] Rx#: [id number] Propofol/Emulsion 100 ml 0 104 @ Per Protocol IV CONT [facility] Rx#:[id number] fentaNYL/NACL 100 ml @ 128.9 259 Per Protocol IV CONT [facility] Rx#:[id number] Output: Urine (ml) 2600 1850 200 Catheter 2600 1850 200 NG Tube Output (ml) 75 700 Large Bore (>12 Slovenian) 75 700 Left Naris Stomach Wound Vac Output (ml) 100 800 Abdomen Wound Vac 100 800 Other: Weight 83.9 kg 96.5 kg Number of Stools Catheter 0 Intubated and sedated. Irregular regular rhythm without murmurs. No S3. Lungs rhonchorous breath sounds anteriorly and laterally extremities are warm and well perfused. Stigmata of chronic venous insufficiency. Trace to 1+ edema of both ankles. CXR: CHF, bilateral pleural effusions Result Diagrams: 04/15/17 03:45 04/15/17 03:45 Cardiac Labs: Cardiac Lab Results (72 Hrs) 04/13/17 03:45 CK-MB (CK-2) Fraction 10.60 H Troponin I 0.151 H EKG: Admission EKG reviewed: Atrial fibrillation with rapid ventricular response. Telemetry: Irregular rate controlled Rhythm. Either AF or sinus with multiple PACS and diminuitive p waves Echocardiogram: Echocardiogram dated 04/14/2017 reviewed. This report has not crossed over into [employer]. Normal LV size and normal LV systolic function without obvious regional wall motion abnormalities. Mild tricuspid regurgitation with normal estimated pulmonary pressure. Trivial anterior pericardial effusion without tamponade. ICD10 Worksheet Patient Problems: Problems Problem Status Onset Renal failure Acute Tobacco dependence Acute Narcotic dependency, continuous Acute Lumbosacral radiculopathy at L5 Acute Spinal stenosis, lumbar Acute DM type 1 (diabetes mellitus, type 1) Acute Aspiration pneumonia Acute COPD (chronic obstructive pulmonary disease) Acute Severe sepsis with septic shock Acute Altered mental status Acute Acute exacerbation of congestive heart failure Acute Atrial fibrillation with rapid ventricular response Acute
--- NOTE | 2017-04-15 11:09 | PDCARPN ---
Cardiology Progress Note Assessment/Plan: Assessment/plan: 72-year-old male with COPD and diabetes. He was admitted on April 12 with septic shock related to incarcerated inguinal hernia and subsequent bowel perforation with peritonitis and ultimately gram-negative elvis bacteremia. He initially required pressor support and remains intubated. He is now off pressors. Upon admission he was also in rapid atrial fibrillation and had several attempts at cardioversion which were unsuccessful. He was placed on IV amiodarone. He ultimately converted to sinus rhythm, and now appears to be in rate controlled atrial fibrillation but is off amiodarone. He has been to the operating room for surgical repair of his bowel perforation and will need to return to the OR for washout and possible closure. 1. Atrial fibrillation: EKG now to confirm his rhythm. It is also possible that he is having sinus rhythm with multiple PACs. If his heart rate is persistently above 100 would restart IV amiodarone with the intent to initiate oral amiodarone once he is taking oral medications, which may be quite some time given the status of his bowels. No systemic anticoagulation for now as he needs to go back to the OR. 2. Septic shock related to bowel perforation: Followed by infectious disease. He is currently off pressors. 3. Respiratory failure:Remains on the ventilator. Agree with initiation of diuresis as his BNP is elevated, chest x-ray appears to have pulmonary congestion and pleural effusions. Echocardiogram with preserved LV systolic function, so there is certainly some element of diastolic dysfunction in the setting of massive fluid resuscitation related to his sepsis. He also has underlying COPD which may be contributing to respiratory failure. 4. diabetes: Per Internal Medicine 5. Borderline troponin upon admission: Likely related to physiological stress and atrial fibrillation. Could consider further risk stratification once he is over his acute illness. 04/15/17 11:15 Subjective: Patient is intubated and sedated. History is from chart review and discussion with Dr. Harris and Dr. Churchill Reviewed/Discussed With: other (Dr. Harris. Dr. Churchill) Objective: Vital Signs (8 Hrs) Temp Pulse Resp BP Pulse Ox 04/15/17 10:00 81 24 H 143/76 H 97 04/15/17 09:00 78 24 H 124/54 H 97 04/15/17 08:10 78 24 H 97 04/15/17 08:00 36.7 C 86 24 H 125/76 H 96 09/24/17 07:00 84 24 H 132/64 H 96 04/15/17 06:00 36.5 C 83 24 H 120/66 94 04/15/17 05:25 81 93 04/15/17 05:00 79 16 115/65 97 04/15/17 04:00 36.5 C 78 24 H 116/57 L 100 04/15/17 03:00 80 24 H 120/66 94 Intake/Output (24 Hrs) 04/14/17 04/15/17 04/16/17 05:59 05:59 05:59 Intake Total 7808.9 4359 Output Total 2775 3350 200 Balance 5033.9 1009 -200 Intake: Oral (ml) 0 IV Intake (ml) 308 IV Infused (ml) 7808.9 4051 Albumin 5% 500 ml @ As 1000 Directed IV ONCE ONE Rx#: [id number] Amiodarone HCl 540 mg In 598 208 D5w 300 ml @ 16.667 mls/ hr IV ONCE@0430 ONE Rx#: [id number] Ascorbic Acid 1,500 mg In 201 200 D5w 100 ml @ 206 mls/hr IV Q6H [facility] Rx#:[id number] Heparin/Dextrose 500 ml @ 0 Per Protocol IV CONT [facility] Rx#:[id number] Norepinephrine/Ns 500 ml 2541 218 @ Titrate IV CONT [facility] Rx# :[id number] Ns 1,000 ml @ 100 mls/hr 3340 3062 IV CONT [facility] Rx#: [id number] Propofol/Emulsion 100 ml 0 104 @ Per Protocol IV CONT [facility] Rx#:[id number] fentaNYL/NACL 100 ml @ 128.9 259 Per Protocol IV CONT [facility] Rx#:[id number] Output: Urine (ml) 2600 1850 200 Catheter 2600 1850 200 NG Tube Output (ml) 75 700 Large Bore (>12 Japanese) 75 700 Left Naris Stomach Wound Vac Output (ml) 100 800 Abdomen Wound Vac 100 800 Other: Weight 83.9 kg 96.5 kg Number of Stools Catheter 0 Intubated and sedated. Irregular regular rhythm without murmurs. No S3. Lungs rhonchorous breath sounds anteriorly and laterally extremities are warm and well perfused. Stigmata of chronic venous insufficiency. Trace to 1+ edema of both ankles. CXR: CHF, bilateral pleural effusions Result Diagrams: 04/15/17 03:45 04/15/17 03:45 Cardiac Labs: Cardiac Lab Results (72 Hrs) 04/13/17 03:45 CK-MB (CK-2) Fraction 10.60 H Troponin I 0.151 H EKG: Admission EKG reviewed: Atrial fibrillation with rapid ventricular response. Telemetry: Irregular rate controlled Rhythm. Either AF or sinus with multiple PACS and diminuitive p waves Echocardiogram: Echocardiogram dated 04/14/2017 reviewed. This report has not crossed over into [employer]. Normal LV size and normal LV systolic function without obvious regional wall motion abnormalities. Mild tricuspid regurgitation with normal estimated pulmonary pressure. Trivial anterior pericardial effusion without tamponade. ICD10 Worksheet Patient Problems: Problems Problem Status Onset Renal failure Acute Tobacco dependence Acute Narcotic dependency, continuous Acute Lumbosacral radiculopathy at L5 Acute Spinal stenosis, lumbar Acute DM type 1 (diabetes mellitus, type 1) Acute Aspiration pneumonia Acute COPD (chronic obstructive pulmonary disease) Acute Severe sepsis with septic shock Acute Altered mental status Acute Acute exacerbation of congestive heart failure Acute Atrial fibrillation with rapid ventricular response Acute
[2017-04-15] MEDS ORDERED: BENZOCAINE UNIT DOSE SPRAY HURRICAINE MM ONE (11:18)
[2017-04-15] MEDS ORDERED: LIDOCAINE 2% JELLY 5 ML TUBE TP ONE (11:18)
[2017-04-15] MEDS ORDERED: LIDOCAINE 1% 300 MG/30 ML SDV MISC ONE (11:18)
--- NOTE | 2017-04-15 12:01 | SOAPPROG ---
SOAP Progress Note Assessment/Plan: Assessment: 72-YEAR-OLD MALE WITH OPEN ABDOMEN AFTER PERFORATED BOWEL HAD INCARCERATED INGUINAL HERNIA/DOING REASONABLY WELL/STILL ON VENTILATOR/WOUND VAC IN PLACE ABDOMEN RELATIVELY SOFT/AFEBRILE/LAB STABLE CHEST RELATIVELY CLEAR/COR REGULAR RHYTHM Plan: CONSIDER LAPAROTOMY FOR WASHOUT AND POSSIBLE CLOSURE IN THE NEXT 12:48 P.M. FORTY EIGHT HOURS BEFORE EXTUBATION 04/14/17 12:45 04/15/17 12:00 AFEBRILE/VITAL SIGNS STABLE/STILL ON VENT/LARGE NG AND WOUND VAC OUTPUTS/WBC 14 K/ABDOMEN SOFT WITH BOWEL SOUNDS/TOLERATING THE VENTILATOR WELL BEING SO STABLE PLAN ON WOUND VAC CHANGE AND POSSIBLE ABDOMINAL CLOSURE IN THE A.M. UNLESS HIS CONDITION WORSENS OR INCREASING ABDOMINAL PRESSURE 04/15/17 14:33 Objective: Vital Signs Temp Pulse Resp BP Pulse Ox 36.7 C 82 24 H 142/67 H 96 04/15/17 08:00 04/15/17 11:00 04/15/17 11:00 04/15/17 11:00 04/15/17 11:00 Microbiology 04/13/17 06:15 Gram Stain - Final Abdomen - Eswab 04/13/17 01:40 - Final Sputum, Induced/Suctioned Sputum Culture - Final 04/12/17 23:00 Urine Culture - Final Urine,Catheterized Klebsiella Pneumoniae Laboratory Results 04/15/17 03:45 04/15/17 03:45 04/14/17 04/15/17 04/16/17 05:59 05:59 05:59 Intake Total 7808.9 4359 Output Total 2775 3350 200 Balance 5033.9 1009 -200 PT 20.2 SEC (12.0-15.0) H 04/13/17 08:29 INR 1.72 (0.83-1.16) H 04/13/17 08:29 ICD10 Worksheet Patient Problems: Problems Problem Status Onset Acute exacerbation of congestive heart failure Acute Atrial fibrillation with rapid ventricular response Acute DM type 1 (diabetes mellitus, type 1) Acute Perforated bowel Acute Renal failure Acute Altered mental status Acute Aspiration pneumonia Acute COPD (chronic obstructive pulmonary disease) Acute Lumbosacral radiculopathy at L5 Acute Narcotic dependency, continuous Acute Severe sepsis with septic shock Acute Spinal stenosis, lumbar Acute Tobacco dependence Acute - ICD10 Problem Qualifiers (1) Perforated bowel
[2017-04-15 12:51] LABS: PLATELET COUNT 146 10^3/uL (150-400)
[2017-04-15 13:03] LABS: INR 1.21 (0.83-1.16); PROTIME(PATIENT) 15.3 SEC (12.0-15.0)
--- NOTE | 2017-04-15 13:58 | CPEKG ---
Heart Rate: 86 RR Interval: 698 P-R Interval: 162 QRSD Interval: 90 QT Interval: 372 QTC Interval: 445 P [place]: 0 QRS [place]: 57 T Wave [place]: 53 EKG Severity - ABNORMAL ECG - EKG Impression: ECTOPIC ATRIAL RHYTHM EKG Impression: SINUS PAUSE/ARREST WITH JUNCTIONAL ESCAPE EKG Impression: BORDERLINE T ABNORMALITIES, ANT-LAT LEADS Electronically Signed By: Rachel Ramirez 15-Apr-2017 20:00:01
[2017-04-15] MEDS ORDERED: MIDAZOLAM 2 MG/2 ML VIAL IVP ONE (14:08)
--- NOTE | 2017-04-15 14:08 | PDINTPN ---
Offset Assistant Press Operator Progress Note Assessment/Plan: Assessment: 72-year-old man with multiple underlying medical problems admitted 04/13 with shortness of breath and new onset atrial fibrillation with RVR. Developed sepsis and acute respiratory failure secondary to bowel obstruction/infarction/ perforation. Bowel obstruction secondary to incarceration and infarction, perforation, peritonitis. Status post abdominal surgery with removal of perforated and infarcted segments. On broad-spectrum antibiotics. Id following. Septic shock secondary to abdominal sepsis. Improved. Hypotension resolved. Off norepinephrine. CVP approximately 9. On sepsis protocol with steroids, vitamin-C, thiamin comma broad-spectrum antibiotics. Acute respiratory failure: Secondary to aspiration pneumonitis/pneumonia/ sepsis. Chest x-ray today shows increasing infiltrates, secondary to pneumonia/ pneumonitis or possibly a component of CHF/increasing volume overload. Will diurese. Repeat bronchoscopy today to remove secretions Aspiration of gastric/bilious material. Abnormal mental status, initially secondary to issues above, now resolved. Acute renal failure. Creatinine and BUN both improving. 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 Secondary to sepsis, volume depletion/dehydration pre admission New onset atrial fibrillation: Off amiodarone. Rate control now excellent. Urinary tract infection? Klebsiella in urine as well as from abdominal swab. History of multiple medical problems including COPD/ongoing tobacco abuse, type 2 diabetes, systemic hypertension, chronic pain and narcotics, chronic back ulcerations/decubitus, etc. Metabolic: Hypokalemia, hypocalcemia. On replacement protocols. On sliding scale insulin coverage. Anticoagulation: Was on full-dose heparin for atrial fibrillation stroke prevention. This was stopped for surgery in will remain off for now. Prophylactic anticoagulation with subcu heparin will be initiated. Nutrition: TPN to start tonight. Plan: Continue supportive care, ventilatory support. D/C maintenance IV fluids. Began to diurese, keeping CVP 6-10 range. Bronchoscopy today to remove secretions. Will obtain surveillance cultures. Start TPN. Continue antibiotics: Zosyn, vancomycin, mycofungin per Infectious Disease. Continue short CPAP trials as tolerated. Cont subcu heparin, pantoprazole. Probably back to operating room tomorrow for reexploration and washout. Per surgery. Follow lab, chest x-ray, blood gas. 45 minutes of critical care time spent directly with the patient, not including therapeutic bronchoscopy. Discussed with respiratory, nursing, hospitalist, pharmacy, surgery, and the ICU multi disciplinary team. Will discuss issues with the patient's family when they come in later today. 04/15/17 14:12 Subjective: More somnolent today. Arouses, responds. Indicates some abdominal pain. Objective: Vital Signs Temp Pulse Resp BP Pulse Ox 36.6 C 80 24 H 105/53 L 92 04/15/17 12:00 04/15/17 13:00 04/15/17 13:00 04/15/17 13:00 04/15/17 13:00 Microbiology 04/13/17 06:15 Gram Stain - Final Abdomen - Eswab 04/13/17 01:40 - Final Sputum, Induced/Suctioned Sputum Culture - Final 04/12/17 23:00 Urine Culture - Final Urine,Catheterized Klebsiella Pneumoniae Laboratory Results 04/15/17 12:40 04/15/17 12:40 04/14/17 04/15/17 04/16/17 05:59 05:59 05:59 Intake Total 7808.9 4359 Output Total 2775 3350 200 Balance 5033.9 1009 -200 PT 15.3 SEC (12.0-15.0) H 04/15/17 12:40 INR 1.21 (0.83-1.16) H 04/15/17 12:40 Laboratory Tests 04/14/17 04/15/17 04/15/17 05:10 04:10 12:40 pCO2 37 30 L pO2 65 58 L ABG pH 7.36 7.42 ABG O2 Saturation 92 O2 Concentration % 40 Respiration Rate 24 Assist Control YES Tidal Volume 550 End Tidal CO2 17 PEEP 5 Calcium 7.6 L Phosphorus 3.1 Magnesium 1.9 Total Bilirubin 0.8 AST 22 ALT 25 Albumin 2.2 L CXR: Increased bilateral infiltrates, large heart. Suggests increasing congestive heart failure/fluid retention Physical Exam - Physical Exam General Appearance: no apparent distress, other (On ventilator) EENT: PERRL/EOMI, ET tube, other (NG) Neck: normal inspection Respiratory: lungs clear (Anteriorly), decreased breath sounds (At bases), rales (Bibasilar rales present), No rhonchi (Scattered rhonchi present), No wheezing Cardiac/Chest: irregularly irregular (Back in atrial fibrillation, rate about 80 ) Abdomen: other (Wound VAC in place), No normal bowel sounds, No non-tender, No soft Male Genitalia: other (Knott catheter in place, significantly improved urine output.) Skin: normal color, warm/dry Extremities: pedal edema, swelling (Chronic changes with edema, discoloration) Neuro/Psych: no motor/sensory deficits, No cognition abnormalities ICD10 Worksheet Patient Problems: Problems Problem Status Onset Renal failure Acute Tobacco dependence Acute Narcotic dependency, continuous Acute Lumbosacral radiculopathy at L5 Acute Spinal stenosis, lumbar Acute DM type 1 (diabetes mellitus, type 1) Acute Aspiration pneumonia Acute COPD (chronic obstructive pulmonary disease) Acute Severe sepsis with septic shock Acute Altered mental status Acute Acute exacerbation of congestive heart failure Acute Atrial fibrillation with rapid ventricular response Acute
--- NOTE | 2017-04-15 14:25 | GPN ---
[f rep st] PROCEDURE NOTE DATE OF PROCEDURE: 04/15/2017 PROCEDURE PERFORMED: Therapeutic bronchoscopy. DESCRIPTION OF PROCEDURE: The procedure was performed in the intensive care unit. Informed consent was obtained over the phone from the patient's . Appropriate time-out was performed. N95 masks and a negative pressure environment were not required. The patient was sedated with propofol and fentanyl at the time of the procedure. A bolus of 50 mg of propofol was given for the procedure. He received 1 mg of Versed for conscious sedation. He was kept on mechanical ventilation throughout. The fiberoptic bronchoscope was passed via an adapter on the end of the patient' s endotracheal tube and into the distal trachea. There were significant secretions at the level of the main jessica, extending down into both sides. These were creamy, somewhat purulent, and fairly copious in amount. Secretions were removed with suction and lavage. Cultures were obtained. Underlying anatomy was normal. There was no significant erythema or edema, and no evidence of any endobronchial abnormalities. All areas were observed to at least the first subsegmental level. There were no complications. Vital signs and oxygen saturations during the procedure remained stable and normal. Impression: Large amounts of creamy secretions found bilaterally, extending up into the lower trachea. Removed with suction and lavage. Normal endobronchial anatomy otherwise. Culture sent. /[id number]/MODL MTDD
--- NOTE | 2017-04-15 14:41 | HOSPPROG ---
Hospitalist Progress Note Assessment/Plan: * Septic shock due to bowel perf with peritonitis/gross contamination -off pressors -GNR in blood - await sensitivities -Vanco, Zosyn, micafungin * Incarcerated inguinal hernia containing necrotic cecum, with SB perf s/p resection -back to OR tomorrow for closure * Afib s/p failed cardioversion -s/p amiodarone -ECHO pending -consider anticoagulation when stable * CHF / volume overload -IV Lasix * Acute on chronic respiratory failure -wean vent after OR tomorrow * COPD - chronic O2 2-4 L * Chronic narcotic dependency due to lumbar spinal stenosis -holding PO narcotics Subjective: No events Objective: Vital Signs Temp Pulse Resp BP Pulse Ox 36.6 C 76 24 H 125/64 H 96 04/15/17 12:00 04/15/17 14:00 04/15/17 14:00 04/15/17 14:00 04/15/17 14:00 Microbiology 04/13/17 06:15 Gram Stain - Final Abdomen - Eswab 04/13/17 01:40 - Final Sputum, Induced/Suctioned Sputum Culture - Final 04/12/17 23:00 Urine Culture - Final Urine,Catheterized Klebsiella Pneumoniae Laboratory Results 04/15/17 12:40 04/15/17 12:40 04/14/17 04/15/17 04/16/17 05:59 05:59 05:59 Intake Total 7808.9 4359 Output Total 2775 3350 765 Balance 5033.9 1009 -765 PT 15.3 SEC (12.0-15.0) H 04/15/17 12:40 INR 1.21 (0.83-1.16) H 04/15/17 12:40 d/w Dr. Werner - cardiology to consult today EKG viewed, my personal interpretation is - possible NSR with PAC CXR - increased CHF ICD10 Worksheet Patient Problems: Problems Problem Status Onset Acute exacerbation of congestive heart failure Acute Atrial fibrillation with rapid ventricular response Acute DM type 1 (diabetes mellitus, type 1) Acute Perforated bowel Acute Renal failure Acute Altered mental status Acute Aspiration pneumonia Acute COPD (chronic obstructive pulmonary disease) Acute Lumbosacral radiculopathy at L5 Acute Narcotic dependency, continuous Acute Severe sepsis with septic shock Acute Spinal stenosis, lumbar Acute Tobacco dependence Acute
--- NOTE | 2017-04-15 16:25 | PCMIDPN ---
Assessment/Plan: Assessment: Septic shock secondary to peritonitis after incarcerated cecum became necrotic. Pressors off. Remains intubated due to impending return to the operating room for washout. Currently being managed on vancomycin, Zosyn and micafungin. No changes planned present. Plan: 1. Continue vancomycin, Zosyn and micafungin. 2. Follow-up clinical course. 04/14/17 11:03 04/15/17 16:21 Subjective: Patient remains intubated. Hemodynamically very stable. Appears to be tolerating antibiotic regimen. Objective: Vancomycin # 3 Zosyn # 2 Micafungin # 2 Vital Signs Temp Pulse Resp BP Pulse Ox 36.3 C 75 24 H 111/67 94 04/15/17 16:00 04/15/17 16:00 04/15/17 16:00 04/15/17 16:00 04/15/17 16:00 Microbiology 04/13/17 06:15 Gram Stain - Final Abdomen - Eswab 04/13/17 01:40 - Final Sputum, Induced/Suctioned Sputum Culture - Final 04/12/17 23:00 Urine Culture - Final Urine,Catheterized Klebsiella Pneumoniae Laboratory Results 04/15/17 12:40 04/15/17 12:40 04/14/17 04/15/17 04/16/17 05:59 05:59 05:59 Intake Total 7808.9 4359 Output Total 2775 3350 1140 Balance 5033.9 1009 -1140 - Physical Exam General Appearance: WD/WN, alert, no apparent distress, other (Intubated and mildly sedated.) Respiratory: lungs clear, normal breath sounds, No respiratory distress Cardiac/Chest: regular rate, rhythm, irregularly irregular, No tachycardia Extremities: normal inspection Abdomen: soft, distended, No non-tender, No mass Skin: normal color, warm/dry, No rash ICD10 Worksheet Patient Problems: Problems Problem Status Onset Acute exacerbation of congestive heart failure Acute Atrial fibrillation with rapid ventricular response Acute DM type 1 (diabetes mellitus, type 1) Acute Perforated bowel Acute Renal failure Acute Altered mental status Acute Aspiration pneumonia Acute COPD (chronic obstructive pulmonary disease) Acute Lumbosacral radiculopathy at L5 Acute Narcotic dependency, continuous Acute Severe sepsis with septic shock Acute Spinal stenosis, lumbar Acute Tobacco dependence Acute
[2017-04-15] MEDS: TPN W/ FAMOTIDINE 1 EA BAG IV SCH (20:07)
[2017-04-15] MEDS: VANCOMYCIN HCL/NORMAL SALINE 250 ML IV SCH (23:27)
[2017-04-16] MEDS: ALBUTEROL 200 PUFFS/18 GM MDI IH SCH ×6 (00:34→20:21)
[2017-04-16] MEDS ORDERED: POTASSIUM Cl (KCl) 100 ML IV ONE (00:45)
[2017-04-16] MEDS: CHLORHEXIDINE GLUCONATE 15 ML UDL PO SCH ×6 (02:27→22:30)
[2017-04-16] MEDS: ASCORBIC ACID 1,500 MG in D5W 100 ML IV SCH ×5 (03:41→23:38)
[2017-04-16] MEDS: PROPOFOL/EMULSION 100 ML IV SCH ×4 (04:31→21:08)
[2017-04-16 04:59] LABS: PLATELET COUNT 137 10^3/uL (150-400)
[2017-04-16] MEDS: PIPERACILLIN/TAZO 2.25 GM/DEX 50 ML IV SCH (05:01)
[2017-04-16] MEDS: HYDROCORTISONE 100 MG/2 ML VIAL IVP SCH ×3 (05:01→19:00)
[2017-04-16] MEDS: INSULIN REGULAR HUMAN 100 UNIT/ML SC SCH ×3 (05:08→19:01)
[2017-04-16 05:09] LABS: INR 1.13 (0.83-1.16); PROTIME(PATIENT) 14.4 SEC (12.0-15.0)
[2017-04-16] MEDS: HEPARIN 5,000 UNIT/0.5 ML SYR SC SCH (05:34)
[2017-04-16] MEDS ORDERED: MAGNESIUM SULF 1 GM/DEXTROSE 100 ML IV ONE (05:40)
[2017-04-16] MEDS: fentaNYL/NACL 100 ML IV SCH ×3 (07:25→21:08)
[2017-04-16] MEDS: FUROSEMIDE 40 MG/4 ML VIAL IVP SCH ×2 (09:13→17:02)
[2017-04-16] MEDS: NICOTINE 21 MG/24 HR PATCH TD SCH (09:13)
--- NOTE | 2017-04-16 09:23 | SOAPPROG ---
SOAP Progress Note Assessment/Plan: Assessment/Plan: 72yo M s/p ex-lap for incarcerated/strangulated RIGH c necrotic cecum, proximal perforated small bowel. Open abdomen Neuro: Sedated, c/o pain. On propofol and fentanyl. Pulm: Bronch again yesterday, making vent weans. Poss extubate later today if continues to make progress CV:HDS, off pressors, off hep gtt, in a-fib but appears rate controlled Abdomen: soft, VAC in place, canister with serous fluid. Take back for washout poss mosis and closure today Renal: UOP improving, Cr remarkably normal at 1.0 Heme: Hb stable, hep gtt held Id: Afebrile, WBC downtrending. On vanc, zosyn, xavi. Cx growing klebsiella Dispo: takeback for washout today, going to try and reconnect and close, will see how contamination looks. Discussed over phone with patients daughter 04/13/17 05:14 04/16/17 09:19 04/16/17 09:24 04/16/17 09:29 Subjective: Intubated, following commands. ALTAMIRANO spontaneously. Objective: Vital Signs Temp Pulse Resp BP Pulse Ox 36.0 C 86 24 H 131/76 H 100 04/16/17 09:00 04/16/17 09:00 04/16/17 09:00 04/16/17 09:00 04/16/17 09:00 Microbiology 04/15/17 14:20 Gram Stain - Final Other - Aspirate 04/13/17 06:15 Gram Stain - Final Abdomen - Eswab 04/13/17 01:40 - Final Sputum, Induced/Suctioned Sputum Culture - Final 04/12/17 23:00 Urine Culture - Final Urine,Catheterized Klebsiella Pneumoniae Laboratory Results 04/16/17 04:30 04/16/17 04:30 04/15/17 04/16/17 04/17/17 05:59 05:59 05:59 Intake Total 4359 8767 Output Total 8822 5300 70 Balance 1009 -553 -70 PT 14.4 SEC (12.0-15.0) 04/16/17 04:30 INR 1.13 (0.83-1.16) 04/16/17 04:30 ICD10 Worksheet Patient Problems: Problems Problem Status Onset Acute exacerbation of congestive heart failure Acute Atrial fibrillation with rapid ventricular response Acute DM type 1 (diabetes mellitus, type 1) Acute Perforated bowel Acute Renal failure Acute Altered mental status Acute Aspiration pneumonia Acute COPD (chronic obstructive pulmonary disease) Acute Lumbosacral radiculopathy at L5 Acute Narcotic dependency, continuous Acute Severe sepsis with septic shock Acute Spinal stenosis, lumbar Acute Tobacco dependence Acute
[2017-04-16] MEDS: MICAFUNGIN NA 100 MG in NS 100 ML IV SCH (09:27)
--- NOTE | 2017-04-16 10:06 | PCMIDPN ---
Assessment/Plan: Assessment/Plan: * Septic shock due to peritonitis associated with necrotic cecum: Blood culture showing 1 of 2 sets with Bacteroides species and other set with Staphylococcus epidermidis which is beta-lactam susceptible. Peritoneal cultures with growth of Klebsiella pneumoniae and mixed intestinal david. Plans for repeat assessment in OR today. Given beta-lactam susceptibility of Staphylococcus epidermidis, will discontinue vancomycin. Will narrow Zosyn to Unasyn based on Klebsiella susceptibilities and continue to follow cultures. Continue empiric micafungin pending additional culture information in event yeast contributing. 04/16/17 09:58 Subjective: Intubated with plans for repeat abdominal washout this p.m.. Opens eyes to the stimuli. Objective: Vital Signs Temp Pulse Resp BP Pulse Ox 36.0 C 73 18 131/76 H 96 04/16/17 09:00 04/16/17 09:36 04/16/17 09:36 04/16/17 09:00 04/16/17 09:36 Microbiology 04/15/17 14:20 Gram Stain - Final Other - Aspirate 04/13/17 06:15 Gram Stain - Final Abdomen - Eswab 04/13/17 01:40 - Final Sputum, Induced/Suctioned Sputum Culture - Final 04/12/17 23:00 Urine Culture - Final Urine,Catheterized Klebsiella Pneumoniae Laboratory Results 04/16/17 04:30 04/16/17 04:30 04/15/17 04/16/17 04/17/17 05:59 05:59 05:59 Intake Total 4359 3287 Output Total 3350 3840 70 Balance 1009 -553 -70 Vancomycin # 4 Zosyn # 3 Micafungin # 3 Blood cultures 04/12/2017 1/2 sets Staph epidermidis which is beta-lactam susceptible, 1/2 sets Bacteroides Peritoneal cultures with growth of Klebsiella and polymicrobial Gram stain BAL specimen pending Chest x-ray with bilateral infiltrates BAL findings noted - Physical Exam General Appearance: other (Intubated, sedated) EENT: ET Tube, No scleral icterus Respiratory: coarse breath sounds Cardiac/Chest: regular rate, rhythm, No systolic murmur Extremities: other (Bilateral chronic venous stasis dermatitis) Abdomen: non-tender, other (Wound VAC in place without surrounding erythema), No distended ICD10 Worksheet Patient Problems: Problems Problem Status Onset Acute exacerbation of congestive heart failure Acute Atrial fibrillation with rapid ventricular response Acute DM type 1 (diabetes mellitus, type 1) Acute Perforated bowel Acute Renal failure Acute Altered mental status Acute Aspiration pneumonia Acute COPD (chronic obstructive pulmonary disease) Acute Lumbosacral radiculopathy at L5 Acute Narcotic dependency, continuous Acute Severe sepsis with septic shock Acute Spinal stenosis, lumbar Acute Tobacco dependence Acute
--- NOTE | 2017-04-16 10:51 | PDCARPN ---
Cardiology Progress Note Assessment/Plan: Assessment/plan: 72-year-old male with COPD and diabetes. He was admitted on April 12 with septic shock related to incarcerated inguinal hernia and subsequent bowel perforation with peritonitis and gram-negative elvis bacteremia. He initially required pressor support and remains intubated. He is now off pressors. Upon admission he was also in rapid atrial fibrillation and had several attempts at cardioversion which were unsuccessful. He was placed on IV amiodarone. Now appears to be in rate controlled atrial fibrillation but is off amiodarone. He has been to the operating room for surgical repair of his bowel perforation and will need to return to the OR for washout and possible closure today. 1. Atrial fibrillation: Currently rate controlled. If his heart rate is persistently above 100 would restart IV amiodarone with the intent to initiate oral amiodarone once he is taking oral medications, which may be quite some time given the status of his bowels. No systemic anticoagulation for now as he needs to go back to the OR. 2. Septic shock related to bowel perforation: Followed by infectious disease. He is currently off pressors. 3. Respiratory failure:Remains on the ventilator. Agree with continued diuresis as his BNP is elevated, chest x-ray appears to have pulmonary congestion and pleural effusions. Echocardiogram with preserved LV systolic function, so there is certainly some element of diastolic dysfunction in the setting of massive fluid resuscitation related to his sepsis. He also has underlying COPD. 5. Borderline troponin upon admission: Likely related to physiological stress and atrial fibrillation. Could consider further risk stratification once he is over his acute illness. 04/16/17 10:49 Subjective: Intubated and sedated Reviewed/Discussed With: multidisciplinary team Objective: Vital Signs (8 Hrs) Temp Pulse Resp BP Pulse Ox 04/16/17 10:00 36.3 C 74 15 112/71 96 04/16/17 09:36 73 18 96 04/16/17 09:00 36.0 C 86 24 H 131/76 H 100 04/16/17 08:00 36.3 C 71 19 117/76 99 04/16/17 06:00 36.7 C 85 24 H 137/64 H 98 04/16/17 04:00 36.7 C 81 24 H 138/87 H 99 Intake/Output (24 Hrs) 04/15/17 04/16/17 04/17/17 05:59 05:59 05:59 Intake Total 4359 3287 Output Total 3350 3840 395 Balance 3008 -559 -395 Intake: Oral (ml) 0 0 IV Intake (ml) 308 1411 IV Infused (ml) 4051 1876 Amiodarone HCl 540 mg In 208 D5w 300 ml @ 16.667 mls/ hr IV ONCE@0430 ONE Rx#: [id number] Ascorbic Acid 1,500 mg In 200 200 D5w 100 ml @ 206 mls/hr IV Q6H BRITTANY Rx#:[id number] Norepinephrine/Ns 500 ml 218 @ Titrate IV CONT BRITTANY Rx# :[id number] Ns 1,000 ml @ 100 mls/hr 3062 IV CONT BRITTANY Rx#: [id number] Ns 1,000 ml @ 25 mls/hr 697 IV CONT BRITTANY Rx#: [id number] Propofol/Emulsion 100 ml 104 312 @ Per Protocol IV CONT BRITTANY Rx#:[id number] TPN W/ Famotidine 1 ea IV 354 DAILY21 BRITTANY Rx#: [id number] fentaNYL/NACL 100 ml @ 259 313 Per Protocol IV CONT BRITTANY Rx#:[id number] Output: Urine (ml) 1850 2840 395 Catheter 1850 2840 395 NG Tube Output (ml) 700 400 Large Bore (>12 English) 700 400 Left Naris Stomach Wound Vac Output (ml) 800 600 Abdomen Wound Vac 800 600 Other: Weight 96.5 kg 95.7 kg Output Comment Catheter post lasix Number of Stools Catheter 0 0 Intubated and sedated. Irregular regular rhythm. No murmur. No S3 Lungs clear anteriorly and laterally. Improving mild bilateral lower extremity edema with chronic venous stasis changes of both legs. Result Diagrams: 04/16/17 04:30 04/16/17 04:30 ICD10 Worksheet Patient Problems: Problems Problem Status Onset Renal failure Acute Tobacco dependence Acute Narcotic dependency, continuous Acute Lumbosacral radiculopathy at L5 Acute Spinal stenosis, lumbar Acute DM type 1 (diabetes mellitus, type 1) Acute Aspiration pneumonia Acute COPD (chronic obstructive pulmonary disease) Acute Severe sepsis with septic shock Acute Altered mental status Acute Acute exacerbation of congestive heart failure Acute Atrial fibrillation with rapid ventricular response Acute Perforated bowel Acute
--- NOTE | 2017-04-16 10:51 | PDCARPN ---
Cardiology Progress Note Assessment/Plan: Assessment/plan: 72-year-old male with COPD and diabetes. He was admitted on April 12 with septic shock related to incarcerated inguinal hernia and subsequent bowel perforation with peritonitis and gram-negative levis bacteremia. He initially required pressor support and remains intubated. He is now off pressors. Upon admission he was also in rapid atrial fibrillation and had several attempts at cardioversion which were unsuccessful. He was placed on IV amiodarone. Now appears to be in rate controlled atrial fibrillation but is off amiodarone. He has been to the operating room for surgical repair of his bowel perforation and will need to return to the OR for washout and possible closure today. 1. Atrial fibrillation: Currently rate controlled. If his heart rate is persistently above 100 would restart IV amiodarone with the intent to initiate oral amiodarone once he is taking oral medications, which may be quite some time given the status of his bowels. No systemic anticoagulation for now as he needs to go back to the OR. 2. Septic shock related to bowel perforation: Followed by infectious disease. He is currently off pressors. 3. Respiratory failure:Remains on the ventilator. Agree with continued diuresis as his BNP is elevated, chest x-ray appears to have pulmonary congestion and pleural effusions. Echocardiogram with preserved LV systolic function, so there is certainly some element of diastolic dysfunction in the setting of massive fluid resuscitation related to his sepsis. He also has underlying COPD. 5. Borderline troponin upon admission: Likely related to physiological stress and atrial fibrillation. Could consider further risk stratification once he is over his acute illness. 04/16/17 10:49 Subjective: Intubated and sedated Reviewed/Discussed With: multidisciplinary team Objective: Vital Signs (8 Hrs) Temp Pulse Resp BP Pulse Ox 04/16/17 10:00 36.3 C 74 15 112/71 96 04/16/17 09:36 73 18 96 04/16/17 09:00 36.0 C 86 24 H 131/76 H 100 04/16/17 08:00 36.3 C 71 19 117/76 99 04/16/17 06:00 36.7 C 85 24 H 137/64 H 98 04/16/17 04:00 36.7 C 81 24 H 138/87 H 99 Intake/Output (24 Hrs) 04/15/17 04/16/17 04/17/17 05:59 05:59 05:59 Intake Total 4359 3287 Output Total 3350 3840 395 Balance 5496 -557 -395 Intake: Oral (ml) 0 0 IV Intake (ml) 308 1411 IV Infused (ml) 4051 1876 Amiodarone HCl 540 mg In 208 D5w 300 ml @ 16.667 mls/ hr IV ONCE@0430 ONE Rx#: [id number] Ascorbic Acid 1,500 mg In 200 200 D5w 100 ml @ 206 mls/hr IV Q6H BR[facility]ANY Rx#:[id number] Norepinephrine/Ns 500 ml 218 @ Titrate IV CONT [facility]ANY Rx# :[id number] Ns 1,000 ml @ 100 mls/hr 3062 IV CONT BRITTANY Rx#: [id number] Ns 1,000 ml @ 25 mls/hr 697 IV CONT BRITTANY Rx#: [id number] Propofol/Emulsion 100 ml 104 312 @ Per Protocol IV CONT [facility]ANY Rx#:[id number] TPN W/ Famotidine 1 ea IV 354 DAILY21 [facility]ANY Rx#: [id number] fentaNYL/NACL 100 ml @ 259 313 Per Protocol IV CONT BRITTANY Rx#:[id number] Output: Urine (ml) 1850 2840 395 Catheter 1850 2840 395 NG Tube Output (ml) 700 400 Large Bore (>12 Irish) 700 400 Left Naris Stomach Wound Vac Output (ml) 800 600 Abdomen Wound Vac 800 600 Other: Weight 96.5 kg 95.7 kg Output Comment Catheter post lasix Number of Stools Catheter 0 0 Intubated and sedated. Irregular regular rhythm. No murmur. No S3 Lungs clear anteriorly and laterally. Improving mild bilateral lower extremity edema with chronic venous stasis changes of both legs. Result Diagrams: 04/16/17 04:30 04/16/17 04:30 ICD10 Worksheet Patient Problems: Problems Problem Status Onset Renal failure Acute Tobacco dependence Acute Narcotic dependency, continuous Acute Lumbosacral radiculopathy at L5 Acute Spinal stenosis, lumbar Acute DM type 1 (diabetes mellitus, type 1) Acute Aspiration pneumonia Acute COPD (chronic obstructive pulmonary disease) Acute Severe sepsis with septic shock Acute Altered mental status Acute Acute exacerbation of congestive heart failure Acute Atrial fibrillation with rapid ventricular response Acute Perforated bowel Acute
--- NOTE | 2017-04-16 10:51 | PDCARPN ---
Cardiology Progress Note Assessment/Plan: Assessment/plan: 72-year-old male with COPD and diabetes. He was admitted on April 12 with septic shock related to incarcerated inguinal hernia and subsequent bowel perforation with peritonitis and gram-negative elvis bacteremia. He initially required pressor support and remains intubated. He is now off pressors. Upon admission he was also in rapid atrial fibrillation and had several attempts at cardioversion which were unsuccessful. He was placed on IV amiodarone. Now appears to be in rate controlled atrial fibrillation but is off amiodarone. He has been to the operating room for surgical repair of his bowel perforation and will need to return to the OR for washout and possible closure today. 1. Atrial fibrillation: Currently rate controlled. If his heart rate is persistently above 100 would restart IV amiodarone with the intent to initiate oral amiodarone once he is taking oral medications, which may be quite some time given the status of his bowels. No systemic anticoagulation for now as he needs to go back to the OR. 2. Septic shock related to bowel perforation: Followed by infectious disease. He is currently off pressors. 3. Respiratory failure:Remains on the ventilator. Agree with continued diuresis as his BNP is elevated, chest x-ray appears to have pulmonary congestion and pleural effusions. Echocardiogram with preserved LV systolic function, so there is certainly some element of diastolic dysfunction in the setting of massive fluid resuscitation related to his sepsis. He also has underlying COPD. 5. Borderline troponin upon admission: Likely related to physiological stress and atrial fibrillation. Could consider further risk stratification once he is over his acute illness. 04/16/17 10:49 Subjective: Intubated and sedated Reviewed/Discussed With: multidisciplinary team Objective: Vital Signs (8 Hrs) Temp Pulse Resp BP Pulse Ox 04/16/17 10:00 36.3 C 74 15 112/71 96 04/16/17 09:36 73 18 96 04/16/17 09:00 36.0 C 86 24 H 131/76 H 100 04/16/17 08:00 36.3 C 71 19 117/76 99 04/16/17 06:00 36.7 C 85 24 H 137/64 H 98 04/16/17 04:00 36.7 C 81 24 H 138/87 H 99 Intake/Output (24 Hrs) 04/15/17 04/16/17 04/17/17 05:59 05:59 05:59 Intake Total 4359 3287 Output Total 3350 3840 395 Balance 8596 -555 -395 Intake: Oral (ml) 0 0 IV Intake (ml) 308 1411 IV Infused (ml) 4051 1876 Amiodarone HCl 540 mg In 208 D5w 300 ml @ 16.667 mls/ hr IV ONCE@0430 ONE Rx#: [id number] Ascorbic Acid 1,500 mg In 200 200 D5w 100 ml @ 206 mls/hr IV Q6H BRITTANY Rx#:[id number] Norepinephrine/Ns 500 ml 218 @ Titrate IV CONT BR[facility]ANY Rx# :[id number] Ns 1,000 ml @ 100 mls/hr 3062 IV CONT [facility]ANY Rx#: [id number] Ns 1,000 ml @ 25 mls/hr 697 IV CONT BRITTANY Rx#: [id number] Propofol/Emulsion 100 ml 104 312 @ Per Protocol IV CONT [facility] Rx#:[id number] TPN W/ Famotidine 1 ea IV 354 DAILY21 [facility] Rx#: [id number] fentaNYL/NACL 100 ml @ 259 313 Per Protocol IV CONT BRITTANY Rx#:[id number] Output: Urine (ml) 1850 2840 395 Catheter 1850 2840 395 NG Tube Output (ml) 700 400 Large Bore (>12 Vietnamese) 700 400 Left Naris Stomach Wound Vac Output (ml) 800 600 Abdomen Wound Vac 800 600 Other: Weight 96.5 kg 95.7 kg Output Comment Catheter post lasix Number of Stools Catheter 0 0 Intubated and sedated. Irregular regular rhythm. No murmur. No S3 Lungs clear anteriorly and laterally. Improving mild bilateral lower extremity edema with chronic venous stasis changes of both legs. Result Diagrams: 04/16/17 04:30 04/16/17 04:30 ICD10 Worksheet Patient Problems: Problems Problem Status Onset Renal failure Acute Tobacco dependence Acute Narcotic dependency, continuous Acute Lumbosacral radiculopathy at L5 Acute Spinal stenosis, lumbar Acute DM type 1 (diabetes mellitus, type 1) Acute Aspiration pneumonia Acute COPD (chronic obstructive pulmonary disease) Acute Severe sepsis with septic shock Acute Altered mental status Acute Acute exacerbation of congestive heart failure Acute Atrial fibrillation with rapid ventricular response Acute Perforated bowel Acute
[2017-04-16] MEDS: AMPICILLIN/SULBACTAM 3 GM in NS 100 ML IV SCH ×3 (12:17→19:37)
--- NOTE | 2017-04-16 12:46 | ASMTCMCOM ---
CM Note CM Note Notes: Discussed case in rounds, patient to go back to surgery this pm for potential wound closure, respiratory status improving. Needs undetermined at this time but anticipate patient will have SNF/Rehab needs. C/M to follow as needs arise. Date Signed: 04/16/2017 12:45 PM Electronically Signed By:Jessica Lema RN
--- NOTE | 2017-04-16 13:42 | PDHPUP ---
History & Physical Update H&P update statement: This history and physical update is based on an assessment of the patient which was completed after admission or registration (within 24 hours), but prior to the surgery/procedure. H&P update: H&P reviewed & patient examined, no change in patient's condition since H&P completed
[2017-04-16] MEDS ORDERED: PHENYLEPHRINE HCL 100 MCG/ML SYR ONE (13:55)
[2017-04-16] MEDS ORDERED: PROPOFOL 200 MG/20 ML VIAL ONE (13:55)
[2017-04-16] MEDS ORDERED: fentaNYL 100 MCG/2 ML INJ ONE (13:55)
[2017-04-16] MEDS ORDERED: ROCURONIUM 50 MG/5 ML VIAL ONE (13:57)
--- NOTE | 2017-04-16 14:54 | PDANEPAE ---
ANE History of Present Illness Patient presents for abdominal washout possible closure ANE Past Medical History - Cardiovascular History Hx Hypertension: Yes Hx Arrhythmias: No Hx Chest Pain: No Hx Coronary Artery / Peripheral Vascular Disease: Yes Hx CHF / Valvular Disease: Yes Hx Palpitations: No Cardiovascular History Comment: CAD W/STENT 2005. CHF (R/L HEART FAILURE). HTN. HYPERLIPIDEMIA - Pulmonary History Hx COPD: Yes Hx Asthma/Reactive Airway Disease: No Hx Recent Upper Respiratory Infection: No Hx Oxygen in Use at Home: Yes O2 in Use at Home (L/minute): 2 Hx Sleep Apnea: No Pulmonary History Comment: COPD. NOCTURNAL HYPOXIA, 4L O2 AT HS, RA DURING DAY - Neurologic History Hx Cerebrovascular Accident: No Hx Seizures: No Hx Dementia: No Neurologic History Comment: DIABETIC NEUROPATHY. GAIT INSTABILITY X 3 MONTHS. LUMBAR BACK PAIN - Endocrine History Hx Diabetes: Yes Endocrine History Comment: HYPERPARATHYROIDISM. NIDDM. NO INSULIN OR ORAL ANTIHYPERGLYCEMICS, MANAGES WITH DIET AND EXERCISE. - Renal History Hx Renal Disorders: No - Liver History Hx Hepatic Disorders: No - Neurological & Psychiatric Hx Hx Neurological and Psychiatric Disorders: Yes Neurological / Psychiatric History Comment: DEPRESSION - Cancer History Hx Cancer: Yes Cancer History Comment: PROSTATE CA 2002 - Congenital Disorder History Hx Congenital Disorders: No - GI History Hx Gastrointestinal Disorders: Yes Gastrointestinal History Comment: OPIOID INDUCED CONSTIPATION. - Other Health History Other Health History: CHRONIC OPIOID USE FOR BACK PAIN, JOINT PAIN. INSOMNIA. VITAMIN D DEFICIENCY - Chronic Pain History Chronic Pain: Yes - Surgical History Prior Surgeries: RETINAL DETACTCHMENT X3, BILAT ROTATOR CUFF REPAIR, BILATERAL FOOT SURGERIES WITH HARDWARE IN TOES, RAD PROSTATECTOMY 2001. ANE Review of Systems Review of Systems: ANE Patient History - Allergies Allergies/Adverse Reactions: No Known Allergies Allergy (Unverified 12/26/10 10:34) - Home Medications Home medications: home medication list seen and reviewed Home Medications: Aspirin EC [Aspirin EC 81 mg (*)] 81 mg PO DAILY 06/06/16 [Last Taken 09/16/16 08:00] Mirtazapine 15 mg PO HS 09/16/16 [Last Taken 09/15/16 20:00] Pregabalin [Lyrica 75mg (*)] 75 mg PO TID 09/16/16 [Last Taken 09/14/16] Aclidinium [place] [Tudorza Pressair] 1 puffs IH Q12 04/12/17 [Last Taken Unknown] Olmesartan Medoxomil [Olmesartan Medoxomil] 5 mg PO DAILY 04/12/17 [Last Taken Unknown] Quetiapine Fumarate [Quetiapine Fumarate] 25 mg PO HS 04/12/17 [Last Taken Unknown] morphINE SR [Ms Contin/Oramorph 100 mg (*)] 100 mg PO TID 04/12/17 [Last Taken Unknown] oxyCODONE IR [Oxycodone Ir (*)] 30 mg PO Q4 PRN 04/12/17 [Last Taken Unknown] - NPO status NPO Status: no food or drink >8 hours - Smoking Hx Smoking Status: Current every day smoker - Family Anes Hx Family Hx Anesthesia Complications: NEG ANE Labs/Vital Signs - Labs Result Diagrams: 04/16/17 04:30 04/16/17 04:30 - Vital Signs Blood Pressure: 124/68 Heart Rate: 96 Respiratory Rate: 22 O2 Sat (%): 96 Height: 177.8 cm Weight: 95.7 kg ANE Physical Exam - Airway Mallampati Score: Unable to assesss Mouth exam: ETT in situ - Pulmonary Pulmonary: expiratory wheeze, inspiratory crackles - Cardiovascular Cardiovascular: regular rate and rhythym - ASA Status ASA Status: IV ANE Anesthesia Plan Anesthesia Plan: general endotracheal anesthesia (rba discussed)
[2017-04-16] MEDS ORDERED: ONDANSETRON 4 MG/2 ML VIAL ONE (14:57)
[2017-04-16] MEDS ORDERED: DEXAMETHASONE 4 MG/ML VIAL ONE (14:57)
--- NOTE | 2017-04-16 15:42 | PDINTPN ---
[employer] Progress Note Assessment/Plan: Assessment/plan: 72 M admitted 04/12/17 with septic shock and rapid afib, found to have bowel perforation and required emergent surgery and has remained intubated. * Peritonitis with septic shock and likely abdominal contamination. Currently on Unasyn and micafungin with decreasing WBC and afebrile. Wound cx with Klebsiella; blood with S. Epi and bacteroides; bronch cultures negative from . * Acute respiratory failure with hypoxemia- currently stable and may be able to wean/extubate after OR today. * Afib- currenyl in afib but rate controlled and now off amiodarone (prn metoprolol available). Anticoag held. * YOLANDA- improving labs and UOP * DM- controlled * COPD- not a currently active issue, but may need attention for extubation. * * critical care time 45 minutes Subjective: stable overnight and taken back to OR for potential closure today Objective: Vital Signs Temp Pulse Resp BP Pulse Ox 36.3 C 96 22 H 124/68 H 96 04/16/17 11:06 04/16/17 14:53 04/16/17 14:53 04/16/17 14:53 04/16/17 14:53 Microbiology 04/15/17 14:20 Gram Stain - Final Other - Aspirate 04/13/17 06:15 Gram Stain - Final Abdomen - Eswab 04/13/17 01:40 - Final Sputum, Induced/Suctioned Sputum Culture - Final Laboratory Results 04/16/17 04:30 04/16/17 04:30 04/15/17 04/16/17 04/17/17 05:59 05:59 05:59 Intake Total 4359 3287 Output Total 3350 3840 770 Balance 1009 -553 -770 PT 14.4 SEC (12.0-15.0) 04/16/17 04:30 INR 1.13 (0.83-1.16) 04/16/17 04:30 Physical Exam - Physical Exam General Appearance: other (sedated on vent) EENT: PERRL/EOMI Neck: supple Respiratory: lungs clear, normal breath sounds, No respiratory distress Cardiac/Chest: irregularly irregular, No edema Abdomen: other (wound vac), No normal bowel sounds, No distended Skin: normal color, warm/dry, No cyanosis Lymphatic: no adenopathy Neuro/Psych: cognition abnormalities ICD10 Worksheet Patient Problems: Problems Problem Status Onset Acute exacerbation of congestive heart failure Acute Atrial fibrillation with rapid ventricular response Acute DM type 1 (diabetes mellitus, type 1) Acute Perforated bowel Acute Renal failure Acute Altered mental status Acute Aspiration pneumonia Acute COPD (chronic obstructive pulmonary disease) Acute Lumbosacral radiculopathy at L5 Acute Narcotic dependency, continuous Acute Severe sepsis with septic shock Acute Spinal stenosis, lumbar Acute Tobacco dependence Acute
[2017-04-16] MEDS ORDERED: ROCURONIUM 100 MG/10 ML VIAL ONE (15:52)
--- NOTE | 2017-04-16 16:20 | HOSPPROG ---
Hospitalist Progress Note Assessment/Plan: * Septic shock due to bowel perf with peritonitis/gross contamination -polymicrobial - on Unasyn, micafungin -BP stable off pressors * Incarcerated inguinal hernia containing necrotic cecum, with SB perf s/p resection -back to OR today for closure * Afib s/p failed cardioversion -s/p amiodarone - restart IV amiodarone only if RVR -anticoagulation when stable * CHF / volume overload -IV Lasix * Acute on chronic respiratory failure -wean vent after OR * COPD - chronic O2 2-4 L * Chronic narcotic dependency due to lumbar spinal stenosis -holding PO narcotics * Nutrition - on TPN Subjective: No events Objective: Vital Signs Temp Pulse Resp BP Pulse Ox 36.3 C 96 22 H 124/68 H 96 04/16/17 11:06 04/16/17 14:53 04/16/17 14:53 04/16/17 14:53 04/16/17 14:53 Microbiology 04/15/17 14:20 Gram Stain - Final Other - Aspirate 04/13/17 06:15 Gram Stain - Final Abdomen - Eswab 04/13/17 01:40 - Final Sputum, Induced/Suctioned Sputum Culture - Final Laboratory Results 04/16/17 04:30 04/16/17 04:30 04/15/17 04/16/17 04/17/17 05:59 05:59 05:59 Intake Total 4359 3287 Output Total 3350 3840 770 Balance 1009 -553 -770 PT 14.4 SEC (12.0-15.0) 04/16/17 04:30 INR 1.13 (0.83-1.16) 04/16/17 04:30 tele reviewed - afib but no rapid rates d/w Dr. Werner and Dr. Mcnally regarding plan of care - Physical Exam Constitutional: no apparent distress, appears nourished, not in pain Cardiovascular: regular rate and rhythym, no murmur, rub, or gallop Respiratory: no respiratory distress, no rales or rhonchi, clear to auscultation Gastrointestinal: distension, No tenderness, No ascites, No guarding, No rebound Skin: no rashes or abrasions, no fluctuance, no induration Neurologic: No AAOx3 Psychiatric: encephalopathic, poor insight, poor judgement, poor memory, other ( intubated and sedated), No agitated ICD10 Worksheet Patient Problems: Problems Problem Status Onset Acute exacerbation of congestive heart failure Acute Atrial fibrillation with rapid ventricular response Acute DM type 1 (diabetes mellitus, type 1) Acute Perforated bowel Acute Renal failure Acute Altered mental status Acute Aspiration pneumonia Acute COPD (chronic obstructive pulmonary disease) Acute Lumbosacral radiculopathy at L5 Acute Narcotic dependency, continuous Acute Severe sepsis with septic shock Acute Spinal stenosis, lumbar Acute Tobacco dependence Acute
--- NOTE | 2017-04-16 16:34 | POSTOPPROG ---
Post Op Note Date of Operation: 04/16/17 Surgeon: Venkatesh Avendaño Director Of Transportation: Garima Anesthesiologist: Ting Anesthesia: GET(General Endotracheal) Pre-op Diagnosis: open abdomen Post-op Diagnosis: same Procedure: washout, SB and SB-colon anastomosis. Closure Findings: minimal purulence, anastomosed both sites. VAC on fascia Inf/Abcess present in the surg proc area at time of surgery?: Yes Depth: Organ Space EBL: Minimal Total fluids administered: 3000cc NS washout Drains: Wound Vac
--- NOTE | 2017-04-16 16:48 | POSTANESTH ---
Post Anesthetic Evaluation Cardiovascular Status: Normal, Stable, Similar to Pre-Op Cond Respiratory Status: Similar to Pre-op Cond. Level of Consciousness/Mental Status: Unconscious Pain Control: Adequate, Prn Tx Ordered Nausea/Vomiting Control: Adequate, Prn Tx Ordered Complications Possibly Related to Anesthesia: Other, See Comments (Right subclavian CVC accidently pulled out during patient transfer to bed from OR table. Pressure held. Dressing applied. 18g piv placed in left wrist. Report given in ICU.)
[2017-04-16] MEDS: TPN W/ FAMOTIDINE 1 EA BAG IV SCH (21:08)
[2017-04-16] MEDS: POTASSIUM Cl (KCl) 50 ML IV SCH ×3 (22:30→22:41)
[2017-04-17] MEDS: ALBUTEROL 200 PUFFS/18 GM MDI IH SCH ×5 (00:36→17:39)
[2017-04-17] MEDS: HYDROCORTISONE 100 MG/2 ML VIAL IVP SCH ×2 (00:49→05:39)
[2017-04-17] MEDS: INSULIN REGULAR HUMAN 100 UNIT/ML SC SCH ×4 (00:50→18:38)
[2017-04-17] MEDS: PROPOFOL/EMULSION 100 ML IV SCH ×2 (01:03→05:39)
[2017-04-17] MEDS: AMPICILLIN/SULBACTAM 3 GM in NS 100 ML IV SCH ×4 (01:03→18:16)
[2017-04-17] MEDS: fentaNYL/NACL 100 ML IV SCH ×2 (05:05→13:20)
[2017-04-17] MEDS: CHLORHEXIDINE GLUCONATE 15 ML UDL PO SCH ×6 (05:05→20:38)
[2017-04-17 05:06] LABS: INR 1.16 (0.83-1.16); PROTIME(PATIENT) 14.8 SEC (12.0-15.0)
[2017-04-17] MEDS ORDERED: CALCIUM GLUCONATE 50 ML IV ONE (05:07)
[2017-04-17 05:14] LABS: PLATELET COUNT 159 10^3/uL (150-400)
[2017-04-17] MEDS ORDERED: D10W 250 ML PRN HYPOGLYCEMIA IV (08:30)
[2017-04-17] MEDS: NICOTINE 21 MG/24 HR PATCH TD SCH (08:51)
[2017-04-17] MEDS: MICAFUNGIN NA 100 MG in NS 100 ML IV SCH (08:52)
[2017-04-17] MEDS: FUROSEMIDE 40 MG/4 ML VIAL IVP SCH ×2 (08:53→16:07)
--- NOTE | 2017-04-17 10:30 | WOCRNPDOC ---
WOCRN Advanced Assessment Note - Skin Integrity Problem, Advanced Assess Medial Back Pressure Injury Dressing Type: Allevyn Life, Honey Alginate Dressing Description: Intact Exudate Amount: Scant Exudate Color: Reddish/Yellow Exudate Characteristic(s): Serosanguinous Integumentary Issue Intervention: Visualized Under Dressing (dressing last changed on 04/16) Monty Wound Tissue: Blanching, Erythema Monty Wound Swelling: Mild Wound Bed Color: Red Wound Bed Constitution: Smooth Tissue (non-granulating, smooth), Mixed Loose & Adhered Slough/Eschar Site Odor: None Pressure Injury Stage: Stage 3 Pressure Injury Present on Admit: Yes (Documented in H&P) Skin Integrity Problem Comment: This is a chronic, full-thickness wound over patient's t-spine. After autolytic debridement of slough initiated on Sunday for unstageable wound, wound now appears to be a stage 3 pressure injury, w/ 10 % slough remaining. Tissue in wound is smooth, non-granulating, chronic in appearance. Monty-wound tissue is blanching erythema, w/ mild immediately monty- wound. Will continue w/ [employer] honey HD sheet and Allevyn. Long-term, patient would benefit from some sharp debridement to jump start this stagnant wound.
--- NOTE | 2017-04-17 10:32 | SOAPPROG ---
SOAP Progress Note Assessment/Plan: Assessment/Plan: 72yo M s/p ex-lap for incarcerated/strangulated RIGH c necrotic cecum, proximal perforated small bowel. Now s/p re-anastomosis and closure Neuro: Prop, fentanyl, did not endorse pain this AM Pulm: Lot of secretions, likely needs repeat bronch today. Wean to extubate CV:HDS, in a-fib Abdomen: soft, no bowel sounds. Everything is put back together, abdomen is closed. VAC is above closed fascia. Not planning any more surgeries unless clinically warranted Renal: UOP good, Cr 0.9 Heme: Hb stable Id: Afebrile, WBC up a little today, likely reactionary. On vanc, zosyn, xavi. Cx growing klebsiella Dispo: Wean to extubate, cont TPN, would hold off on enteral feeds as anticipate prolonged ileus but once he has some bowel sounds/function would be ok with trophic feeds. 04/13/17 05:14 04/16/17 09:19 04/16/17 09:24 04/16/17 09:29 04/17/17 10:27 Subjective: Intubated, following commands. Objective: Vital Signs Temp Pulse Resp BP Pulse Ox 36.7 C 107 H 20 145/82 H 93 04/17/17 08:00 04/17/17 10:00 04/17/17 10:00 04/17/17 10:00 04/17/17 10:00 Microbiology 04/15/17 14:20 Gram Stain - Final Other - Aspirate 04/13/17 06:15 Gram Stain - Final Abdomen - Eswab Laboratory Results 04/17/17 04:45 04/17/17 04:45 04/16/17 04/17/17 04/18/17 05:59 05:59 05:59 Intake Total 3287 2549 Output Total 3840 1475 500 Balance -553 1074 -500 PT 14.8 SEC (12.0-15.0) 04/17/17 04:45 INR 1.16 (0.83-1.16) 04/17/17 04:45 ICD10 Worksheet Patient Problems: Problems Problem Status Onset Acute exacerbation of congestive heart failure Acute Atrial fibrillation with rapid ventricular response Acute DM type 1 (diabetes mellitus, type 1) Acute Perforated bowel Acute Renal failure Acute Altered mental status Acute Aspiration pneumonia Acute COPD (chronic obstructive pulmonary disease) Acute Lumbosacral radiculopathy at L5 Acute Narcotic dependency, continuous Acute Severe sepsis with septic shock Acute Spinal stenosis, lumbar Acute Tobacco dependence Acute
--- NOTE | 2017-04-17 12:25 | PDCARPN ---
Cardiology Progress Note Assessment/Plan: Assessment/plan: 72-year-old male with COPD and diabetes. He was admitted on April 12 with septic shock related to incarcerated inguinal hernia and subsequent bowel perforation with peritonitis and gram-negative elvis bacteremia. He initially required pressor support and remains intubated. He is now off pressors. Upon admission he was also in rapid atrial fibrillation and had several attempts at cardioversion which were unsuccessful. He was placed on IV amiodarone. Mostly rated controlled He has been to the operating room for surgical repair of his bowel perforation and returned to OR for reanastomosis 04/16. 1. Atrial fibrillation: SOme periods of RVR. Restart IV amio drip since he is not taking po. Discussed with surgery, OK for IV heparin for stroke risk reduction 2. Septic shock related to bowel perforation: Followed by infectious disease. He is currently off pressors. 3. Respiratory failure:Remains on the ventilator. Agree with continued diuresis as his BNP is elevated, chest x-ray appears to have pulmonary congestion and pleural effusions. Echocardiogram with preserved LV systolic function, so there is certainly some element of diastolic dysfunction in the setting of massive fluid resuscitation related to his sepsis. He also has underlying COPD. 5. Borderline troponin upon admission: Likely related to physiological stress and atrial fibrillation. Could consider further risk stratification once he is over his acute illness. 04/17/17 12:24 Subjective: intubated and sedated Reviewed/Discussed With: multidisciplinary team, other (Dr. Avendaño) Objective: Vital Signs (8 Hrs) Temp Pulse Resp BP Pulse Ox 04/17/17 10:00 107 H 20 145/82 H 93 04/17/17 08:00 36.7 C 103 H 20 157/90 H 94 04/17/17 06:00 36.8 C 93 20 132/77 H 94 04/17/17 05:39 93 20 94 Intake/Output (24 Hrs) 04/16/17 04/17/17 04/18/17 05:59 05:59 05:59 Intake Total 3287 2549 Output Total 3840 4471 675 Balance -553 1074 -675 Intake: Oral (ml) 0 IV Intake (ml) 1411 403 IV Infused (ml) 0645 6566 Ampicillin/Sulbactam 3 gm 100 In Ns 100 ml @ 200 mls/ hr IV Q6HRS [facility] Rx#: [id number] Ascorbic Acid 1,500 mg In 200 D5w 100 ml @ 206 mls/hr IV Q6H [facility] Rx#:[id number] Micafungin Na 100 mg In 100 Ns 100 ml @ 100 mls/hr IV DAILY [facility] Rx#:[id number] Ns 1,000 ml @ 25 mls/hr 697 264 IV CONT [facility] Rx#: [id number] Propofol/Emulsion 100 ml 312 418 @ Per Protocol IV CONT [facility] Rx#:[id number] TPN W/ Famotidine 1 ea IV 354 939 DAILY21 [facility] Rx#: [id number] fentaNYL/NACL 100 ml @ 313 325 Per Protocol IV CONT [facility] Rx#:[id number] Output: Urine (ml) 2840 1155 675 Catheter 2840 1155 675 NG Tube Output (ml) 400 200 Large Bore (>12 Sudanese) 400 200 Left Naris Stomach KAREN Drain Output (ml) 120 Right Abdomen 120 Wound Vac Output (ml) 600 Abdomen Wound Vac 600 Other: Weight 95.7 kg 95.7 kg 92.8 kg Output Comment Catheter post lasix Number of Stools Catheter 0 intubated and sedated Irreg irreg, no murmur lungs clear anteriorly Trace bilat ankle edema post op abd Result Diagrams: 04/17/17 04:45 04/17/17 04:45 Telemetry: AF with periods of RVR ICD10 Worksheet Patient Problems: Problems Problem Status Onset Renal failure Acute Tobacco dependence Acute Narcotic dependency, continuous Acute Lumbosacral radiculopathy at L5 Acute Spinal stenosis, lumbar Acute DM type 1 (diabetes mellitus, type 1) Acute Aspiration pneumonia Acute COPD (chronic obstructive pulmonary disease) Acute Severe sepsis with septic shock Acute Altered mental status Acute Acute exacerbation of congestive heart failure Acute Atrial fibrillation with rapid ventricular response Acute Perforated bowel Acute
--- NOTE | 2017-04-17 12:25 | PDCARPN ---
Cardiology Progress Note Assessment/Plan: Assessment/plan: 72-year-old male with COPD and diabetes. He was admitted on April 12 with septic shock related to incarcerated inguinal hernia and subsequent bowel perforation with peritonitis and gram-negative elvis bacteremia. He initially required pressor support and remains intubated. He is now off pressors. Upon admission he was also in rapid atrial fibrillation and had several attempts at cardioversion which were unsuccessful. He was placed on IV amiodarone. Mostly rated controlled He has been to the operating room for surgical repair of his bowel perforation and returned to OR for reanastomosis 04/16. 1. Atrial fibrillation: SOme periods of RVR. Restart IV amio drip since he is not taking po. Discussed with surgery, OK for IV heparin for stroke risk reduction 2. Septic shock related to bowel perforation: Followed by infectious disease. He is currently off pressors. 3. Respiratory failure:Remains on the ventilator. Agree with continued diuresis as his BNP is elevated, chest x-ray appears to have pulmonary congestion and pleural effusions. Echocardiogram with preserved LV systolic function, so there is certainly some element of diastolic dysfunction in the setting of massive fluid resuscitation related to his sepsis. He also has underlying COPD. 5. Borderline troponin upon admission: Likely related to physiological stress and atrial fibrillation. Could consider further risk stratification once he is over his acute illness. 04/17/17 12:24 Subjective: intubated and sedated Reviewed/Discussed With: multidisciplinary team, other (Dr. Avendaño) Objective: Vital Signs (8 Hrs) Temp Pulse Resp BP Pulse Ox 04/17/17 10:00 107 H 20 145/82 H 93 04/17/17 08:00 36.7 C 103 H 20 157/90 H 94 04/17/17 06:00 36.8 C 93 20 132/77 H 94 04/17/17 05:39 93 20 94 Intake/Output (24 Hrs) 04/16/17 04/17/17 04/18/17 05:59 05:59 05:59 Intake Total 3287 2549 Output Total 3840 1310 675 Balance -553 1074 -675 Intake: Oral (ml) 0 IV Intake (ml) 1411 403 IV Infused (ml) 0278 5586 Ampicillin/Sulbactam 3 gm 100 In Ns 100 ml @ 200 mls/ hr IV Q6HRS [facility] Rx#: [id number] Ascorbic Acid 1,500 mg In 200 D5w 100 ml @ 206 mls/hr IV Q6H [facility] Rx#:[id number] Micafungin Na 100 mg In 100 Ns 100 ml @ 100 mls/hr IV DAILY [facility] Rx#:[id number] Ns 1,000 ml @ 25 mls/hr 697 264 IV CONT [facility] Rx#: [id number] Propofol/Emulsion 100 ml 312 418 @ Per Protocol IV CONT [facility] Rx#:[id number] TPN W/ Famotidine 1 ea IV 354 939 DAILY21 [facility] Rx#: [id number] fentaNYL/NACL 100 ml @ 313 325 Per Protocol IV CONT [facility] Rx#:[id number] Output: Urine (ml) 2840 1155 675 Catheter 2840 1155 675 NG Tube Output (ml) 400 200 Large Bore (>12 Italian) 400 200 Left Naris Stomach KAREN Drain Output (ml) 120 Right Abdomen 120 Wound Vac Output (ml) 600 Abdomen Wound Vac 600 Other: Weight 95.7 kg 95.7 kg 92.8 kg Output Comment Catheter post lasix Number of Stools Catheter 0 intubated and sedated Irreg irreg, no murmur lungs clear anteriorly Trace bilat ankle edema post op abd Result Diagrams: 04/17/17 04:45 04/17/17 04:45 Telemetry: AF with periods of RVR ICD10 Worksheet Patient Problems: Problems Problem Status Onset Renal failure Acute Tobacco dependence Acute Narcotic dependency, continuous Acute Lumbosacral radiculopathy at L5 Acute Spinal stenosis, lumbar Acute DM type 1 (diabetes mellitus, type 1) Acute Aspiration pneumonia Acute COPD (chronic obstructive pulmonary disease) Acute Severe sepsis with septic shock Acute Altered mental status Acute Acute exacerbation of congestive heart failure Acute Atrial fibrillation with rapid ventricular response Acute Perforated bowel Acute
--- NOTE | 2017-04-17 12:25 | PDCARPN ---
Cardiology Progress Note Assessment/Plan: Assessment/plan: 72-year-old male with COPD and diabetes. He was admitted on April 12 with septic shock related to incarcerated inguinal hernia and subsequent bowel perforation with peritonitis and gram-negative elvis bacteremia. He initially required pressor support and remains intubated. He is now off pressors. Upon admission he was also in rapid atrial fibrillation and had several attempts at cardioversion which were unsuccessful. He was placed on IV amiodarone. Mostly rated controlled He has been to the operating room for surgical repair of his bowel perforation and returned to OR for reanastomosis 04/16. 1. Atrial fibrillation: SOme periods of RVR. Restart IV amio drip since he is not taking po. Discussed with surgery, OK for IV heparin for stroke risk reduction 2. Septic shock related to bowel perforation: Followed by infectious disease. He is currently off pressors. 3. Respiratory failure:Remains on the ventilator. Agree with continued diuresis as his BNP is elevated, chest x-ray appears to have pulmonary congestion and pleural effusions. Echocardiogram with preserved LV systolic function, so there is certainly some element of diastolic dysfunction in the setting of massive fluid resuscitation related to his sepsis. He also has underlying COPD. 5. Borderline troponin upon admission: Likely related to physiological stress and atrial fibrillation. Could consider further risk stratification once he is over his acute illness. 04/17/17 12:24 Subjective: intubated and sedated Reviewed/Discussed With: multidisciplinary team, other (Dr. Avendaño) Objective: Vital Signs (8 Hrs) Temp Pulse Resp BP Pulse Ox 04/17/17 10:00 107 H 20 145/82 H 93 04/17/17 08:00 36.7 C 103 H 20 157/90 H 94 04/17/17 06:00 36.8 C 93 20 132/77 H 94 04/17/17 05:39 93 20 94 Intake/Output (24 Hrs) 04/16/17 04/17/17 04/18/17 05:59 05:59 05:59 Intake Total 3287 2549 Output Total 3840 0205 675 Balance -553 1074 -675 Intake: Oral (ml) 0 IV Intake (ml) 1411 403 IV Infused (ml) 8091 8276 Ampicillin/Sulbactam 3 gm 100 In Ns 100 ml @ 200 mls/ hr IV Q6HRS [facility] Rx#: [id number] Ascorbic Acid 1,500 mg In 200 D5w 100 ml @ 206 mls/hr IV Q6H [facility] Rx#:[id number] Micafungin Na 100 mg In 100 Ns 100 ml @ 100 mls/hr IV DAILY [facility] Rx#:[id number] Ns 1,000 ml @ 25 mls/hr 697 264 IV CONT [facility] Rx#: [id number] Propofol/Emulsion 100 ml 312 418 @ Per Protocol IV CONT [facility] Rx#:[id number] TPN W/ Famotidine 1 ea IV 354 939 DAILY21 [facility] Rx#: [id number] fentaNYL/NACL 100 ml @ 313 325 Per Protocol IV CONT [facility] Rx#:[id number] Output: Urine (ml) 2840 1155 675 Catheter 2840 1155 675 NG Tube Output (ml) 400 200 Large Bore (>12 Luxembourger) 400 200 Left Naris Stomach KAREN Drain Output (ml) 120 Right Abdomen 120 Wound Vac Output (ml) 600 Abdomen Wound Vac 600 Other: Weight 95.7 kg 95.7 kg 92.8 kg Output Comment Catheter post lasix Number of Stools Catheter 0 intubated and sedated Irreg irreg, no murmur lungs clear anteriorly Trace bilat ankle edema post op abd Result Diagrams: 04/17/17 04:45 04/17/17 04:45 Telemetry: AF with periods of RVR ICD10 Worksheet Patient Problems: Problems Problem Status Onset Renal failure Acute Tobacco dependence Acute Narcotic dependency, continuous Acute Lumbosacral radiculopathy at L5 Acute Spinal stenosis, lumbar Acute DM type 1 (diabetes mellitus, type 1) Acute Aspiration pneumonia Acute COPD (chronic obstructive pulmonary disease) Acute Severe sepsis with septic shock Acute Altered mental status Acute Acute exacerbation of congestive heart failure Acute Atrial fibrillation with rapid ventricular response Acute Perforated bowel Acute
[2017-04-17] MEDS ORDERED: AMIODARONE HCL 200 ML IV SCH (12:30)
[2017-04-17] MEDS: AMIODARONE HCL 200 ML IV SCH ×3 (12:49→21:32)
--- NOTE | 2017-04-17 13:09 | GOP ---
[f rep st] OPERATIVE REPORT DATE OF OPERATION: 04/16/2017 SURGEON: Venkatesh Avendaño MD ORDER ENTRY TECHNICIAN: Daphnie Painting PA-C. ANESTHESIA: General endotracheal provided by Dr. Castillo Maguire. PREOPERATIVE DIAGNOSIS: Open abdomen and septic shock. POSTOPERATIVE DIAGNOSIS: Open abdomen and septic shock. PROCEDURE PERFORMED: 1. Abdominal exploration and washout. 2. Enteroenterostomy. 3. Enterocolostomy 4. Closure of fascia and wound VAC in the subcutaneous tissue. FINDINGS: Very minimal contamination of the patient's abdomen. This was washed out. I did decide to anastomose the patient, as he was in discontinuity in [address]. Both anastomoses were widely patent, hemostatic and well perfused. SPECIMENS: None. ESTIMATED BLOOD LOSS: 5 cc. DRAINS: 19-Thai channel drain in the right upper quadrant. DESCRIPTION OF PROCEDURE: The patient was transported from the intensive care unit intubated to the operative suite. Consent was obtained prior to this from his MD BAILEY daughter. Once in the operating room, he was transferred over to the surgical bed and attached to the anesthesia machine. His abdomen was then widely prepped and draped after the ABThera device was removed. After draping, I began exploring by gently eviscerating the small bowel. Minimal contamination was identified, the worst of which was in the right upper quadrant. I irrigated the abdomen with 3 L warm normal saline, noting clear effluent in the suction canister. After this was done, and finding no other pathology or lesions, I decided to put the patient back together. I turned my attention first toward the enterocolostomy. I brought the ascending colon side- by-side with the ileum. I made a colotomy and enterotomy on either side, through which I fired a single fire Endo-TAYLER 75 blue load, creating a common channel. I closed my enterocolotomy with a running 3-0 PDS suture, over which I Lemberted interrupted 3-0 Vicryl. The anastomosis was hemostatic and widely patent. I closed the mesenteric defect with a running 3-0 Vicryl. I then turned my attention toward the enteroenterotomy. In the same fashion, in a side -by-side functional end-to-end anastomosis, using the single fire TAYLRE-75 stapler , created a common channel. The enterotomy was closed with a running 3-0 PDS suture, over which Lemberted 3-0 Vicryl sutures were placed. The mesenteric defect was closed again with running 3-0 Vicryl. I then examined the remainder of the patient's small and large bowel and found no other significant pathology. I irrigated again with a liter of warm normal saline. I returned the abdominal contents back to the patient's abdomen. After this was done, I placed through a separate stab incision in the patient's right quadrant, a 19- Thai channel drain which I placed above the liver, the area which had the most contamination. I attached this to the skin with an interrupted nylon suture. After this, I turned my attention toward closing the fascia, which was done with a running #1 PDS suture, noting excellent fascial reapproximation. Over this, I placed a black sponge for the wound VAC, which was attached to suction with no apparent leaks. The patient was then transported back to the intensive care unit intubated. COUNTS: All counts were reported as correct x2. /[id number]/MODL MTDD
--- NOTE | 2017-04-17 13:09 | GOP ---
[f rep st] OPERATIVE REPORT DATE OF OPERATION: 04/16/2017 SURGEON: Venkatesh Avendaño MD WAD COMPRESSOR OPERATOR ADJUSTER: Daphnie Painting PA-C. ANESTHESIA: General endotracheal provided by Dr. Castillo Maguire. PREOPERATIVE DIAGNOSIS: Open abdomen and septic shock. POSTOPERATIVE DIAGNOSIS: Open abdomen and septic shock. PROCEDURE PERFORMED: 1. Abdominal exploration and washout. 2. Enteroenterostomy. 3. Enterocolostomy 4. Closure of fascia and wound VAC in the subcutaneous tissue. FINDINGS: Very minimal contamination of the patient's abdomen. This was washed out. I did decide to anastomose the patient, as he was in discontinuity in [address]. Both anastomoses were widely patent, hemostatic and well perfused. SPECIMENS: None. ESTIMATED BLOOD LOSS: 5 cc. DRAINS: 19-Turkish channel drain in the right upper quadrant. DESCRIPTION OF PROCEDURE: The patient was transported from the intensive care unit intubated to the operative suite. Consent was obtained prior to this from his MD BAILEY daughter. Once in the operating room, he was transferred over to the surgical bed and attached to the anesthesia machine. His abdomen was then widely prepped and draped after the ABThera device was removed. After draping, I began exploring by gently eviscerating the small bowel. Minimal contamination was identified, the worst of which was in the right upper quadrant. I irrigated the abdomen with 3 L warm normal saline, noting clear effluent in the suction canister. After this was done, and finding no other pathology or lesions, I decided to put the patient back together. I turned my attention first toward the enterocolostomy. I brought the ascending colon side- by-side with the ileum. I made a colotomy and enterotomy on either side, through which I fired a single fire Endo-TAYLER 75 blue load, creating a common channel. I closed my enterocolotomy with a running 3-0 PDS suture, over which I Lemberted interrupted 3-0 Vicryl. The anastomosis was hemostatic and widely patent. I closed the mesenteric defect with a running 3-0 Vicryl. I then turned my attention toward the enteroenterotomy. In the same fashion, in a side -by-side functional end-to-end anastomosis, using the single fire TAYLER-75 stapler , created a common channel. The enterotomy was closed with a running 3-0 PDS suture, over which Lemberted 3-0 Vicryl sutures were placed. The mesenteric defect was closed again with running 3-0 Vicryl. I then examined the remainder of the patient's small and large bowel and found no other significant pathology. I irrigated again with a liter of warm normal saline. I returned the abdominal contents back to the patient's abdomen. After this was done, I placed through a separate stab incision in the patient's right quadrant, a 19- Turkish channel drain which I placed above the liver, the area which had the most contamination. I attached this to the skin with an interrupted nylon suture. After this, I turned my attention toward closing the fascia, which was done with a running #1 PDS suture, noting excellent fascial reapproximation. Over this, I placed a black sponge for the wound VAC, which was attached to suction with no apparent leaks. The patient was then transported back to the intensive care unit intubated. COUNTS: All counts were reported as correct x2. /[id number]/MODL MTDD
--- NOTE | 2017-04-17 13:36 | PDINTPN ---
Compatibility Test Engineer Progress Note Assessment/Plan: Assessment/plan: 72 M admitted 04/12/17 with septic shock and rapid afib, found to have bowel perforation and required emergent surgery and has remained intubated. * Peritonitis with septic shock and likely abdominal contamination. Currently on Unasyn and micafungin with decreasing WBC and afebrile. Wound cx with Klebsiella; blood with S. Epi and bacteroides; bronch cultures negative from . * Acute respiratory failure with hypoxemia- currently stable and likely extubation today. * Afib- currently in afib and resumed amiodarone today as rate climbing. Surgery OK'd full anticoagulation for CVA prophylaxis * YOLANDA- improving labs and UOP * DM- controlled * COPD- not a currently active issue, but may need attention for extubation. * * critical care time 45 minutes 04/17/17 13:34 Subjective: Abdominal wound closed 04/16 Objective: Vital Signs Temp Pulse Resp BP Pulse Ox 36.8 C 108 H 26 H 144/73 H 96 04/17/17 12:00 04/17/17 12:00 04/17/17 12:00 04/17/17 12:00 04/17/17 12:00 Microbiology 04/15/17 14:20 Gram Stain - Final Other - Aspirate 04/13/17 06:15 Gram Stain - Final Abdomen - Eswab Laboratory Results 04/17/17 04:45 04/17/17 04:45 04/16/17 04/17/17 04/18/17 05:59 05:59 05:59 Intake Total 3287 2549 Output Total 3840 1475 1025 Balance -553 1074 -1025 PT 14.8 SEC (12.0-15.0) 04/17/17 04:45 INR 1.16 (0.83-1.16) 04/17/17 04:45 Physical Exam - Physical Exam General Appearance: no apparent distress, other (sedated on vent) EENT: PERRL/EOMI Neck: supple Respiratory: lungs clear, normal breath sounds, No respiratory distress Cardiac/Chest: edema, irregularly irregular Abdomen: non-tender, other (wound vac), No distended Skin: normal color, warm/dry Extremities: pedal edema, other (severe venous stasis changes bilaterally) Neuro/Psych: cognition abnormalities ICD10 Worksheet Patient Problems: Problems Problem Status Onset Acute exacerbation of congestive heart failure Acute Atrial fibrillation with rapid ventricular response Acute DM type 1 (diabetes mellitus, type 1) Acute Perforated bowel Acute Renal failure Acute Altered mental status Acute Aspiration pneumonia Acute COPD (chronic obstructive pulmonary disease) Acute Lumbosacral radiculopathy at L5 Acute Narcotic dependency, continuous Acute Severe sepsis with septic shock Acute Spinal stenosis, lumbar Acute Tobacco dependence Acute
--- NOTE | 2017-04-17 14:01 | PCMIDPN ---
Assessment/Plan: Assessment/Plan: 1. Sepsis secondary to necrotic cecum/peritonitis: -Polymicrobial bacteremia with staph epi, bacteroides noted -Abd cx with Klebsiella. -Currently on Unasyn and micafungin -s/p washout out yesterday. -follow up labs/clinically Meds unasyn 3g q6- micafungin 100mg daily Subjective: afebrile. remains in icu, intubated, lightly sedated. opens eyes to verbal stimuli. not really nodding to questions. Objective: Vital Signs Temp Pulse Resp BP Pulse Ox 36.8 C 108 H 26 H 144/73 H 96 04/17/17 12:00 04/17/17 12:00 04/17/17 12:00 04/17/17 12:00 04/17/17 12:00 Microbiology 04/15/17 14:20 Gram Stain - Final Other - Aspirate 04/13/17 06:15 Gram Stain - Final Abdomen - Eswab Laboratory Results 04/17/17 04:45 04/17/17 04:45 04/16/17 04/17/17 04/18/17 05:59 05:59 05:59 Intake Total 3287 2549 Output Total 3840 1475 1025 Balance -553 1074 -1025 - Physical Exam General Appearance: other (eyes open to verbal stimuli) EENT: ET Tube Respiratory: lungs clear Cardiac/Chest: regular rate, rhythm Extremities: No swelling Abdomen: normal bowel sounds, distended, other (wound vac noted, nara drain with serosanguinous drainage) Male Genitalia: ferguson Skin: No erythema ICD10 Worksheet Patient Problems: Problems Problem Status Onset Acute exacerbation of congestive heart failure Acute Atrial fibrillation with rapid ventricular response Acute DM type 1 (diabetes mellitus, type 1) Acute Perforated bowel Acute Renal failure Acute Altered mental status Acute Aspiration pneumonia Acute COPD (chronic obstructive pulmonary disease) Acute Lumbosacral radiculopathy at L5 Acute Narcotic dependency, continuous Acute Severe sepsis with septic shock Acute Spinal stenosis, lumbar Acute Tobacco dependence Acute
--- NOTE | 2017-04-17 15:09 | HOSPPROG ---
Hospitalist Progress Note Assessment/Plan: * Septic shock due to bowel perf with peritonitis/gross contamination -polymicrobial - on Unasyn, micafungin -BP stable off pressors * Incarcerated inguinal hernia containing necrotic cecum, with SB perf s/p resection -s/p OR for closure * Afib s/p failed cardioversion -IV amiodarone -per surgery okay to start anticoagulation * CHF / volume overload -IV Lasix * Acute on chronic respiratory failure -wean vent * COPD - chronic O2 2-4 L * Chronic narcotic dependency due to lumbar spinal stenosis -holding PO narcotics * Nutrition - on TPN Subjective: no events. OR went well yesterday, now closed Objective: Vital Signs Temp Pulse Resp BP Pulse Ox 36.8 C 116 H 22 H 153/73 H 95 04/17/17 12:00 04/17/17 14:00 04/17/17 14:00 04/17/17 14:00 04/17/17 14:00 Microbiology 04/15/17 14:20 Gram Stain - Final Other - Aspirate 04/13/17 06:15 Gram Stain - Final Abdomen - Eswab Laboratory Results 04/17/17 04:45 04/17/17 04:45 04/16/17 04/17/17 04/18/17 05:59 05:59 05:59 Intake Total 3287 2549 Output Total 3840 1475 1250 Balance -553 1074 -1250 PT 14.8 SEC (12.0-15.0) 04/17/17 04:45 INR 1.16 (0.83-1.16) 04/17/17 04:45 d/w DR. saini regarding plan of care tele - afib with mild rapid rate - Physical Exam Constitutional: no apparent distress, appears nourished, not in pain Cardiovascular: regular rate and rhythym, no murmur, rub, or gallop Respiratory: no respiratory distress, no rales or rhonchi, clear to auscultation Gastrointestinal: normoactive bowel sounds, soft, non-tender abdomen, no palpable masses Skin: no rashes or abrasions, no fluctuance, no induration Neurologic: No AAOx3 Psychiatric: encephalopathic, other (intubated and sedated), No interacting appropriately, No agitated ICD10 Worksheet Patient Problems: Problems Problem Status Onset Acute exacerbation of congestive heart failure Acute Atrial fibrillation with rapid ventricular response Acute DM type 1 (diabetes mellitus, type 1) Acute Perforated bowel Acute Renal failure Acute Altered mental status Acute Aspiration pneumonia Acute COPD (chronic obstructive pulmonary disease) Acute Lumbosacral radiculopathy at L5 Acute Narcotic dependency, continuous Acute Severe sepsis with septic shock Acute Spinal stenosis, lumbar Acute Tobacco dependence Acute
[2017-04-17] MEDS ORDERED: HEPARIN 10,000 UNIT/10 ML MDV IVP ONE (15:41)
[2017-04-17] MEDS ORDERED: HEPARIN 10,000 UNIT/10 ML MDV IVP PRN (15:41)
[2017-04-17] MEDS: HYDROmorphONE/DILAUDID 1 MG/ML INJ IVP PRN ×2 (16:05→17:30)
[2017-04-17] MEDS: HEPARIN/DEXTROSE 500 ML IV SCH (16:15)
[2017-04-17 16:29] LABS: PLATELET COUNT 164 10^3/uL (150-400)
[2017-04-17 16:33] LABS: INR 1.21 (0.83-1.16); PROTIME(PATIENT) 15.3 SEC (12.0-15.0)
[2017-04-17] MEDS ORDERED: ALBUTEROL 3 ML DEYVIAL IH PRN (16:50)
[2017-04-17] MEDS ORDERED: fentaNYL 75 MCG PATCH TD ONE (17:30)
[2017-04-17] MEDS: ALBUTEROL 3 ML DEYVIAL IH SCH ×2 (17:30→21:08)
[2017-04-17] MEDS: DEXMEDETOMIDINE HCL 400 MCG in NS 100 ML IV SCH ×2 (17:46→17:50)
--- NOTE | 2017-04-17 17:55 | ECHO ---
[email or web address] [address] [address] Main: [phone] Fax: Transthoracic Echocardiogram Name: RAHAT CASTELAN MR#: [id number] Study Date: 04/14/2017 Study Time: 09:05 AM Date of : 1945 Age: 72 year(s) Height: 177.8 cm (70 in.) Weight: 83.46 kg (184 lb.) BSA: 2.01 m2 Gender: Male Examination: Echo Indication: Cardiogenic shock, presumably septic/history diastolic dysfunction, EF 70%/ Eval for left and right heart function Image Quality: Contrast: Requested by: Spenser Milian BP: 130 mmHg/67 mmHg Heart Rate: Rhythm: Indication: Cardiogenic shock, presumably septic/history diastolic dysfunction, EF 70%/ Eval for left and right heart function Procedure Staff Ordering Physician: JENS Watch Caser: Rachel Tellez Reading Physician: Rosaura Werner Conclusions: Normal size left ventricle. Global hypercontractility of the left ventricle (EF 70 %). The left atrium is mildly dilated. Mild tricuspid regurgitation is present. The pulmonary artery pressure is normal. Trivia to small anterior pericardial effusion with echogenicity within. Compared to echo of {}, today's echo is unchanged. Compared to echo of 09/17/2016, today's echo is unchanged. Measurements: Chambers Valvular Assessment AV/MV Valvular Assessment TV/PV Normal Normal Normal Name Value Range Name Value Range Name Value Range Ao Wendy (MM): 4.1 cm (2.2 cm-3.7 AV meanP mmHg ( - ) TR Vmax: 2.81 mm/s ( - ) cm) MV E Vmax: 1.08 cm/s ( - ) TR PGmax: 32 mmHg ( - ) LVDd (2D): 4.9 cm (4.2 cm-5.9 syst. PAP: 37 mmHg ( - ) cm) LVEF (MOD4): 70 % (>=55 %) Continued Measurements: Chambers Valvular Assessment AV/MV Valvular Assessment TV/PV Name Value Name Value Name Value LA Area: 19.7 cm2 MV E/E' Septal: 10.20 CVP (est.): 5 LA Volume: 58 ml MV E/E' Lateral: 8.80 LA Volume Index: 28.9 ml/m2 Patient: RAHAT CASTELAN Study Date: 04/14/2017 Page 1 of 2 09:05 AM Findings: Left Ventricle: Normal size left ventricle. No LV hypertrophy. Global hypercontractility of the left ventricle (EF 70 %). Right Ventricle: Normal size right ventricle. Left Atrium: The left atrium is mildly dilated. Right Atrium: The right atrium is normal in size. Mitral Valve: The mitral valve is normal in appearance and function. Trivial mitral valve regurgitation. Aortic Valve: Aortic valve is not well visualized. Tricuspid Valve: The tricuspid valve is normal in appearance and function. Mild tricuspid regurgitation is present. The pulmonary artery pressure is normal. Pulmonic Valve: Pulmonary valve not well visualized. Great Vessels: The aorta is normal. Pericardium: Trivia to small anterior pericardial effusion with echogenicity within. (No Signature Object) Patient: RAHAT CASTELAN Study Date: 04/14/2017 Page 2 of 2 09:05 AM [id number]
--- NOTE | 2017-04-17 17:55 | ECHO ---
[email or web address] [address] [address] Main: [phone] Fax: Transthoracic Echocardiogram Name: RAHAT CASTELAN MR#: [id number] Study Date: 04/14/2017 Study Time: 09:05 AM Date of : 1945 Age: 72 year(s) Height: 177.8 cm (70 in.) Weight: 83.46 kg (184 lb.) BSA: 2.01 m2 Gender: Male Examination: Echo Indication: Cardiogenic shock, presumably septic/history diastolic dysfunction, EF 70%/ Eval for left and right heart function Image Quality: Contrast: Requested by: Spenser Milian BP: 130 mmHg/67 mmHg Heart Rate: Rhythm: Indication: Cardiogenic shock, presumably septic/history diastolic dysfunction, EF 70%/ Eval for left and right heart function Procedure Staff Ordering Physician: JENS Plate Glass Installer: Rachel Tellez Reading Physician: Rosaura Werner Conclusions: Normal size left ventricle. Global hypercontractility of the left ventricle (EF 70 %). The left atrium is mildly dilated. Mild tricuspid regurgitation is present. The pulmonary artery pressure is normal. Trivia to small anterior pericardial effusion with echogenicity within. Compared to echo of {}, today's echo is unchanged. Compared to echo of 09/17/2016, today's echo is unchanged. Measurements: Chambers Valvular Assessment AV/MV Valvular Assessment TV/PV Normal Normal Normal Name Value Range Name Value Range Name Value Range Ao Wendy (MM): 4.1 cm (2.2 cm-3.7 AV meanP mmHg ( - ) TR Vmax: 2.81 mm/s ( - ) cm) MV E Vmax: 1.08 cm/s ( - ) TR PGmax: 32 mmHg ( - ) LVDd (2D): 4.9 cm (4.2 cm-5.9 syst. PAP: 37 mmHg ( - ) cm) LVEF (MOD4): 70 % (>=55 %) Continued Measurements: Chambers Valvular Assessment AV/MV Valvular Assessment TV/PV Name Value Name Value Name Value LA Area: 19.7 cm2 MV E/E' Septal: 10.20 CVP (est.): 5 LA Volume: 58 ml MV E/E' Lateral: 8.80 LA Volume Index: 28.9 ml/m2 Patient: RAHAT CASTELAN Study Date: 04/14/2017 Page 1 of 2 09:05 AM Findings: Left Ventricle: Normal size left ventricle. No LV hypertrophy. Global hypercontractility of the left ventricle (EF 70 %). Right Ventricle: Normal size right ventricle. Left Atrium: The left atrium is mildly dilated. Right Atrium: The right atrium is normal in size. Mitral Valve: The mitral valve is normal in appearance and function. Trivial mitral valve regurgitation. Aortic Valve: Aortic valve is not well visualized. Tricuspid Valve: The tricuspid valve is normal in appearance and function. Mild tricuspid regurgitation is present. The pulmonary artery pressure is normal. Pulmonic Valve: Pulmonary valve not well visualized. Great Vessels: The aorta is normal. Pericardium: Trivia to small anterior pericardial effusion with echogenicity within. (No Signature Object) Patient: RAHAT CASTELAN Study Date: 04/14/2017 Page 2 of 2 09:05 AM [id number]
--- NOTE | 2017-04-17 17:55 | ECHO ---
[email or web address] [address] [address] Main: [phone] Fax: Transthoracic Echocardiogram Name: RAHAT CASTELAN MR#: [id number] Study Date: 04/14/2017 Study Time: 09:05 AM Date of : 1945 Age: 72 year(s) Height: 177.8 cm (70 in.) Weight: 83.46 kg (184 lb.) BSA: 2.01 m2 Gender: Male Examination: Echo Indication: Cardiogenic shock, presumably septic/history diastolic dysfunction, EF 70%/ Eval for left and right heart function Image Quality: Contrast: Requested by: Spenser Milian BP: 130 mmHg/67 mmHg Heart Rate: Rhythm: Indication: Cardiogenic shock, presumably septic/history diastolic dysfunction, EF 70%/ Eval for left and right heart function Procedure Staff Ordering Physician: JENS Instrument Technician: Rachel Tellez Reading Physician: Rosaura Werner Conclusions: Normal size left ventricle. Global hypercontractility of the left ventricle (EF 70 %). The left atrium is mildly dilated. Mild tricuspid regurgitation is present. The pulmonary artery pressure is normal. Trivia to small anterior pericardial effusion with echogenicity within. Compared to echo of {}, today's echo is unchanged. Compared to echo of 09/17/2016, today's echo is unchanged. Measurements: Chambers Valvular Assessment AV/MV Valvular Assessment TV/PV Normal Normal Normal Name Value Range Name Value Range Name Value Range Ao Wendy (MM): 4.1 cm (2.2 cm-3.7 AV meanP mmHg ( - ) TR Vmax: 2.81 mm/s ( - ) cm) MV E Vmax: 1.08 cm/s ( - ) TR PGmax: 32 mmHg ( - ) LVDd (2D): 4.9 cm (4.2 cm-5.9 syst. PAP: 37 mmHg ( - ) cm) LVEF (MOD4): 70 % (>=55 %) Continued Measurements: Chambers Valvular Assessment AV/MV Valvular Assessment TV/PV Name Value Name Value Name Value LA Area: 19.7 cm2 MV E/E' Septal: 10.20 CVP (est.): 5 LA Volume: 58 ml MV E/E' Lateral: 8.80 LA Volume Index: 28.9 ml/m2 Patient: RAHAT CASTELAN Study Date: 04/14/2017 Page 1 of 2 09:05 AM Findings: Left Ventricle: Normal size left ventricle. No LV hypertrophy. Global hypercontractility of the left ventricle (EF 70 %). Right Ventricle: Normal size right ventricle. Left Atrium: The left atrium is mildly dilated. Right Atrium: The right atrium is normal in size. Mitral Valve: The mitral valve is normal in appearance and function. Trivial mitral valve regurgitation. Aortic Valve: Aortic valve is not well visualized. Tricuspid Valve: The tricuspid valve is normal in appearance and function. Mild tricuspid regurgitation is present. The pulmonary artery pressure is normal. Pulmonic Valve: Pulmonary valve not well visualized. Great Vessels: The aorta is normal. Pericardium: Trivia to small anterior pericardial effusion with echogenicity within. (No Signature Object) Patient: RAHAT CASTELAN Study Date: 04/14/2017 Page 2 of 2 09:05 AM [id number]
[2017-04-17] MEDS ORDERED: PROTOCOL POTASSIUM 1 DOSE MISC PRN (19:09)
[2017-04-17] MEDS ORDERED: POTASSIUM Cl (KCl) 50 ML IV SCH (19:45)
[2017-04-17] MEDS: POTASSIUM Cl (KCl) 100 ML IV SCH ×2 (20:37→21:32)
[2017-04-17] MEDS: TPN W/ FAMOTIDINE 1 EA BAG IV SCH (20:38)
[2017-04-18] MEDS: HYDROmorphONE/DILAUDID 1 MG/ML INJ IVP PRN ×8 (00:12→20:35)
[2017-04-18] MEDS: AMPICILLIN/SULBACTAM 3 GM in NS 100 ML IV SCH ×4 (00:13→16:59)
[2017-04-18] MEDS: INSULIN REGULAR HUMAN 100 UNIT/ML SC SCH ×4 (00:39→18:18)
[2017-04-18] MEDS: POTASSIUM Cl (KCl) 50 ML IV SCH ×3 (02:10→02:13)
[2017-04-18] MEDS: DEXMEDETOMIDINE HCL 400 MCG in NS 100 ML IV SCH ×3 (02:30→20:20)
[2017-04-18 04:51] LABS: PLATELET COUNT 142 10^3/uL (150-400)
[2017-04-18 05:02] LABS: INR 1.35 (0.83-1.16); PROTIME(PATIENT) 16.7 SEC (12.0-15.0)
[2017-04-18] MEDS ORDERED: CALCIUM GLUCONATE 50 ML IV ONE (05:05)
[2017-04-18] MEDS: HEPARIN/DEXTROSE 500 ML IV SCH (05:39)
[2017-04-18] MEDS: ALBUTEROL 3 ML DEYVIAL IH SCH ×4 (05:53→21:18)
[2017-04-18] MEDS: FUROSEMIDE 40 MG/4 ML VIAL IVP SCH ×2 (08:04→16:59)
[2017-04-18] MEDS: CHLORHEXIDINE GLUCONATE 15 ML UDL PO SCH ×2 (08:04→20:36)
[2017-04-18] MEDS: MICAFUNGIN NA 100 MG in NS 100 ML IV SCH (08:05)
[2017-04-18] MEDS: NICOTINE 21 MG/24 HR PATCH TD SCH (08:05)
--- NOTE | 2017-04-18 09:26 | PCMIDPN ---
Assessment/Plan: # Septic shock due to peritonitis associated with necrotic cecum: OR cultures with Klebsiella, Bacteroides and Berkley. Fascia is now close after multiple washouts. Hemodynamics improved and improving WBC. Only low-grade temperatures # Bacteroides bacteremia # Coagulase negative Staph in 1 set consistent with contamination Recommendations: Continue Unasyn and micafungin. Duration of antibiotic therapy to be determined, but at least 2 weeks. Medications, broad-spectrum antibiotics #6 Unasyn 3 g IV Q 6, # 2 Micafungin 100 mg IV daily, # 5 Subjective: bloody BM and heparin stopped still with abdominal pain Objective: Vital Signs Temp Pulse Resp BP Pulse Ox 37.5 C 76 23 H 101/59 L 96 04/18/17 08:00 04/18/17 08:00 04/18/17 08:00 04/18/17 08:00 04/18/17 08:00 Microbiology 04/15/17 14:20 Gram Stain - Final Other - Aspirate 04/13/17 06:15 Gram Stain - Final Abdomen - Eswab Laboratory Results 04/18/17 04:25 04/18/17 04:25 04/17/17 04/18/17 04/19/17 05:59 05:59 05:59 Intake Total 2549 3531 Output Total 1475 2095 325 Balance 1313 -754 -325 - Physical Exam General Appearance: alert, no apparent distress, obese EENT: pale conjunctiva, other (edentuous), No thrush Respiratory: coarse breath sounds, No accessory muscle use Cardiac/Chest: regular rate, rhythm Extremities: other (Chronic hyperpigmentation in the stocking distribution consistent with chronic venous insufficiency. Wrinkling of the skin consistent with decreasing edema bilateral lower extremity) Abdomen: soft, guarding, other (midline incision with wound vac) Male Genitalia: ferguson Skin: pallor, No jaundice, No rash Neuro/Psych: alert, confused - Line/s RUE PICC Lines: No drainage, No erythema ICD10 Worksheet Patient Problems: Problems Problem Status Onset Acute exacerbation of congestive heart failure Acute Atrial fibrillation with rapid ventricular response Acute DM type 1 (diabetes mellitus, type 1) Acute Perforated bowel Acute Renal failure Acute Altered mental status Acute Aspiration pneumonia Acute COPD (chronic obstructive pulmonary disease) Acute Lumbosacral radiculopathy at L5 Acute Narcotic dependency, continuous Acute Severe sepsis with septic shock Acute Spinal stenosis, lumbar Acute Tobacco dependence Acute
--- NOTE | 2017-04-18 09:33 | HOSPPROG ---
Hospitalist Progress Note Assessment/Plan: # sepsis - off pressors - source abdomen # polymicrobial bacteremia d/t staph epi and bacteroides # small bowel perforation with gross peritonitis - unasyn/micafungin - fascia closed yesterday, wound vac in subcutaneous space # necrotic cecum in incarcerated hernia # a-fib s/p failed cardioversion - heparin gtt stopped given bloody BM - amiodarone # acute on chronic resp failure/COPD - extubated - baseline O2 2-4L # acute diastolic CHF - cont lasix - still +9L # YOLANDA - resolved # chronic narcotic dependency on continuous narcotics d/t lumbar stenosis # TPN Subjective: extubated yesterday; had bloody BM Objective: Vital Signs Temp Pulse Resp BP Pulse Ox 37.5 C 76 23 H 101/59 L 96 04/18/17 08:00 04/18/17 08:00 04/18/17 08:00 04/18/17 08:00 04/18/17 08:00 Microbiology 04/15/17 14:20 Gram Stain - Final Other - Aspirate 04/13/17 06:15 Gram Stain - Final Abdomen - Eswab Laboratory Results 04/18/17 04:25 04/18/17 04:25 04/17/17 04/18/17 04/19/17 05:59 05:59 05:59 Intake Total 2549 3531 Output Total 1475 4285 325 Balance 1074 -754 -325 PT 16.7 SEC (12.0-15.0) H 04/18/17 04:25 INR 1.35 (0.83-1.16) H 04/18/17 04:25 chart reviewed imaging reviewed CXR personally reviewed - Physical Exam Constitutional: chronically ill appearing Cardiovascular: no murmur, rub, or gallop, irregularly irregular Respiratory: no respiratory distress, no rales or rhonchi, clear to auscultation Gastrointestinal: tenderness, guarding, other (midline wound vac; very TTP RLQ) , No hepatosplenomegally Genitourinary: ferguson in urethra ICD10 Worksheet Patient Problems: Problems Problem Status Onset Renal failure Acute Tobacco dependence Acute Narcotic dependency, continuous Acute Lumbosacral radiculopathy at L5 Acute Spinal stenosis, lumbar Acute DM type 1 (diabetes mellitus, type 1) Acute Aspiration pneumonia Acute COPD (chronic obstructive pulmonary disease) Acute Severe sepsis with septic shock Acute Altered mental status Acute Acute exacerbation of congestive heart failure Acute Atrial fibrillation with rapid ventricular response Acute Perforated bowel Acute
--- NOTE | 2017-04-18 11:34 | ASMTCMCOM ---
CM Note CM Note Notes: Patient was extubated yesterday and doing well on Vapotherm. He has a wound vac and is complaining of pain. I spoke with his daughter Rosalia about likelihood of SNF upon discharge, she says patient has been to [facility] in the past and that this would be their first choice. Referral sent to [facility]. Rosalia would like to fill out [facility] paperwork with her father when he is alert and oriented. CM or service worker can help with this. Date Signed: 04/18/2017 11:33 AM Electronically Signed By:Fariba Pimentel RN
--- NOTE | 2017-04-18 11:34 | ASMTCMCOM ---
CM Note CM Note Notes: Patient was extubated yesterday and doing well on Vapotherm. He has a wound vac and is complaining of pain. I spoke with his daughter Rosalia about likelihood of SNF upon discharge, she says patient has been to [facility] in the past and that this would be their first choice. Referral sent to [facility]. Rosalia would like to fill out [facility] paperwork with her father when he is alert and oriented. CM or slide fastener repairer can help with this. Date Signed: 04/18/2017 11:33 AM Electronically Signed By:Fariba Pimentel RN
--- NOTE | 2017-04-18 11:34 | ASMTCMCOM ---
CM Note CM Note Notes: Patient was extubated yesterday and doing well on Vapotherm. He has a wound vac and is complaining of pain. I spoke with his daughter Rosalia about likelihood of SNF upon discharge, she says patient has been to [facility] in the past and that this would be their first choice. Referral sent to [facility]. Rosalia would like to fill out [facility] paperwork with her father when he is alert and oriented. CM or manuscripts curator can help with this. Date Signed: 04/18/2017 11:33 AM Electronically Signed By:Fariba Pimentel RN
--- NOTE | 2017-04-18 13:34 | PDINTPN ---
Aircraft Instrument Engineer Progress Note Assessment/Plan: Assessment/plan: 72 M admitted 04/12/17 with septic shock and rapid afib, found to have bowel perforation and required emergent surgery and has remained intubated. * Peritonitis with septic shock and likely abdominal contamination. Currently on Unasyn and micafungin with decreasing WBC and afebrile. Wound cx with Klebsiella; blood with S. Epi and bacteroides; bronch cultures negative from . WBC falling today * Acute respiratory failure with hypoxemia- currently stable and extubated. Increased O2 needs last PM treated with vapotherm, but anticipate weaning to simple NC today. Check am CXR, encourage IS * Afib- currently in afib and resumed amiodarone 2/2 climbing rate on 04/17. Surgery OK'd full anticoagulation for CVA prophylaxis, so started UFH drip, but apparently had bloody stool this am and Hct dropped from 36 to 31, so stopped again. BP OK and no further signs of bleeding. Follow serial H/H. * YOLANDA- improving labs and UOP * DM- controlled * COPD- not a currently active issue * Subjective: Extubated 04/17 Objective: Vital Signs Temp Pulse Resp BP Pulse Ox 37.6 C 83 23 H 109/62 98 04/18/17 10:00 04/18/17 10:00 04/18/17 10:00 04/18/17 10:00 04/18/17 10:00 Microbiology 04/13/17 06:15 Gram Stain - Final Abdomen - Eswab 04/15/17 14:20 Gram Stain - Final Other - Aspirate Laboratory Results 04/18/17 04:25 04/17/17 04/18/17 04/19/17 05:59 05:59 05:59 Intake Total 2549 3531 Output Total 1475 4285 1300 Balance 1074 -754 -1300 PT 16.7 SEC (12.0-15.0) H 04/18/17 04:25 INR 1.35 (0.83-1.16) H 04/18/17 04:25 Physical Exam - Physical Exam General Appearance: alert, no apparent distress EENT: PERRL/EOMI Neck: supple Respiratory: lungs clear, decreased breath sounds, No respiratory distress Cardiac/Chest: tachycardia Abdomen: soft, guarding, No distended Skin: normal color, warm/dry, No cyanosis Lymphatic: no adenopathy Extremities: pedal edema Neuro/Psych: alert, normal mood/affect, oriented x 3 ICD10 Worksheet Patient Problems: Problems Problem Status Onset Acute exacerbation of congestive heart failure Acute Atrial fibrillation with rapid ventricular response Acute DM type 1 (diabetes mellitus, type 1) Acute Perforated bowel Acute Renal failure Acute Altered mental status Acute Aspiration pneumonia Acute COPD (chronic obstructive pulmonary disease) Acute Lumbosacral radiculopathy at L5 Acute Narcotic dependency, continuous Acute Severe sepsis with septic shock Acute Spinal stenosis, lumbar Acute Tobacco dependence Acute
--- NOTE | 2017-04-18 14:59 | PDCARPN ---
Cardiology Progress Note Assessment/Plan: Assessment/plan: 72-year-old male with COPD and diabetes. He was admitted on April 12 with septic shock related to bowel perforation with peritonitis and gram-negative elvis bacteremia. He initially required pressor and ventilator support. He is now off pressors. Extubated 04/17. Upon admission he was also in rapid atrial fibrillation and had several attempts at cardioversion which were unsuccessful. He was placed on IV amiodarone. Mostly rated controlled He has been to the operating room for surgical repair of his bowel perforation and returned to OR for reanastomosis 04/16. 1. Atrial fibrillation: rate controlled on IV amiodarone. Not yet taking po. Started heparin drip yesterday but had bloody BM and Hct drop, so now anticoag on hold. 2. Septic shock related to bowel perforation: Followed by infectious disease. 3. Respiratory failure: extubated. Agree with continued diuresis. Repeat BNP. Echocardiogram with preserved LV systolic function, so there is certainly some element of diastolic dysfunction in the setting of massive fluid resuscitation related to his sepsis. He also has underlying COPD. 5. Borderline troponin upon admission: Likely related to physiological stress and atrial fibrillation. Could consider further risk stratification once he is over his acute illness. Will sign off, please call with questions. Thanks. 04/18/17 15:02 Subjective: Jose does complain of abd pain and SOB Reviewed/Discussed With: multidisciplinary team Objective: Vital Signs (8 Hrs) Temp Pulse Resp BP Pulse Ox 04/18/17 14:00 37.4 C 67 20 104/54 L 96 04/18/17 12:00 37.4 C 79 25 H 107/57 L 95 04/18/17 10:00 37.6 C 83 23 H 109/62 98 04/18/17 08:00 37.5 C 76 23 H 101/59 L 96 Intake/Output (24 Hrs) 04/17/17 04/18/17 04/19/17 05:59 05:59 05:59 Intake Total 2549 3531 Output Total 1044 4285 1300 Balance 1074 -754 -1300 Intake: IV Intake (ml) 403 1346 IV Infused (ml) 2146 2185 Amiodarone HCl 200 ml @ 281 As Directed 16.7 mls/min IV CONT BRITTANY Rx#: [id number] Ampicillin/Sulbactam 3 gm 100 In Ns 100 ml @ 200 mls/ hr IV Q6HRS BRITTANY Rx#: [id number] Dexmedetomidine HCl 400 118 mcg In Ns 100 ml @ Per Protocol IV CONT BRITTANY Rx#: [id number] Heparin/Dextrose 500 ml @ 386 Per Protocol IV CONT BRITTANY Rx#:[id number] Micafungin Na 100 mg In 100 Ns 100 ml @ 100 mls/hr IV DAILY BRITTANY Rx#:[id number] Ns 1,000 ml @ 25 mls/hr 264 IV CONT BRITTANY Rx#: [id number] Propofol/Emulsion 100 ml 418 @ Per Protocol IV CONT BRITTANY Rx#:[id number] TPN W/ Famotidine 1 ea IV 939 1280 DAILY21 BRITTANY Rx#: [id number] fentaNYL/NACL 100 ml @ 325 120 Per Protocol IV CONT BRITTANY Rx#:[id number] Output: Urine (ml) 1155 3425 950 Catheter 1155 3425 950 NG Tube Output (ml) 200 800 300 Large Bore (>12 Lithuanian) 200 800 300 Left Naris Stomach KAREN Drain Output (ml) 120 60 50 Right Abdomen 120 60 50 Other: Weight 95.7 kg 92.8 kg 91.6 kg Output Comment Catheter post lasix Number of Stools Catheter 0 1 fatigued, appropriate JVP 12. Irreg irreg, no murmur Rhonchi anteriorly Trace bilat ankle edema Result Diagrams: 04/18/17 04:25 04/18/17 13:15 Telemetry: AF with CVR ICD10 Worksheet Patient Problems: Problems Problem Status Onset Renal failure Acute Tobacco dependence Acute Narcotic dependency, continuous Acute Lumbosacral radiculopathy at L5 Acute Spinal stenosis, lumbar Acute DM type 1 (diabetes mellitus, type 1) Acute Aspiration pneumonia Acute COPD (chronic obstructive pulmonary disease) Acute Severe sepsis with septic shock Acute Altered mental status Acute Acute exacerbation of congestive heart failure Acute Atrial fibrillation with rapid ventricular response Acute Perforated bowel Acute
--- NOTE | 2017-04-18 14:59 | PDCARPN ---
Cardiology Progress Note Assessment/Plan: Assessment/plan: 72-year-old male with COPD and diabetes. He was admitted on April 12 with septic shock related to bowel perforation with peritonitis and gram-negative elvis bacteremia. He initially required pressor and ventilator support. He is now off pressors. Extubated 04/17. Upon admission he was also in rapid atrial fibrillation and had several attempts at cardioversion which were unsuccessful. He was placed on IV amiodarone. Mostly rated controlled He has been to the operating room for surgical repair of his bowel perforation and returned to OR for reanastomosis 04/16. 1. Atrial fibrillation: rate controlled on IV amiodarone. Not yet taking po. Started heparin drip yesterday but had bloody BM and Hct drop, so now anticoag on hold. 2. Septic shock related to bowel perforation: Followed by infectious disease. 3. Respiratory failure: extubated. Agree with continued diuresis. Repeat BNP. Echocardiogram with preserved LV systolic function, so there is certainly some element of diastolic dysfunction in the setting of massive fluid resuscitation related to his sepsis. He also has underlying COPD. 5. Borderline troponin upon admission: Likely related to physiological stress and atrial fibrillation. Could consider further risk stratification once he is over his acute illness. Will sign off, please call with questions. Thanks. 04/18/17 15:02 Subjective: Jose does complain of abd pain and SOB Reviewed/Discussed With: multidisciplinary team Objective: Vital Signs (8 Hrs) Temp Pulse Resp BP Pulse Ox 04/18/17 14:00 37.4 C 67 20 104/54 L 96 04/18/17 12:00 37.4 C 79 25 H 107/57 L 95 04/18/17 10:00 37.6 C 83 23 H 109/62 98 04/18/17 08:00 37.5 C 76 23 H 101/59 L 96 Intake/Output (24 Hrs) 04/17/17 04/18/17 04/19/17 05:59 05:59 05:59 Intake Total 2549 3531 Output Total 2706 4285 1300 Balance 1074 -754 -1300 Intake: IV Intake (ml) 403 1346 IV Infused (ml) 2146 2185 Amiodarone HCl 200 ml @ 281 As Directed 16.7 mls/min IV CONT BRITTANY Rx#: [id number] Ampicillin/Sulbactam 3 gm 100 In Ns 100 ml @ 200 mls/ hr IV Q6HRS BRITTANY Rx#: [id number] Dexmedetomidine HCl 400 118 mcg In Ns 100 ml @ Per Protocol IV CONT BRITTANY Rx#: [id number] Heparin/Dextrose 500 ml @ 386 Per Protocol IV CONT BRITTANY Rx#:[id number] Micafungin Na 100 mg In 100 Ns 100 ml @ 100 mls/hr IV DAILY BRITTANY Rx#:[id number] Ns 1,000 ml @ 25 mls/hr 264 IV CONT BRITTANY Rx#: [id number] Propofol/Emulsion 100 ml 418 @ Per Protocol IV CONT BRITTANY Rx#:[id number] TPN W/ Famotidine 1 ea IV 939 1280 DAILY21 BRITTANY Rx#: [id number] fentaNYL/NACL 100 ml @ 325 120 Per Protocol IV CONT BRITTANY Rx#:[id number] Output: Urine (ml) 1155 3425 950 Catheter 1155 3425 950 NG Tube Output (ml) 200 800 300 Large Bore (>12 Sinhala) 200 800 300 Left Naris Stomach KAREN Drain Output (ml) 120 60 50 Right Abdomen 120 60 50 Other: Weight 95.7 kg 92.8 kg 91.6 kg Output Comment Catheter post lasix Number of Stools Catheter 0 1 fatigued, appropriate JVP 12. Irreg irreg, no murmur Rhonchi anteriorly Trace bilat ankle edema Result Diagrams: 04/18/17 04:25 04/18/17 13:15 Telemetry: AF with CVR ICD10 Worksheet Patient Problems: Problems Problem Status Onset Renal failure Acute Tobacco dependence Acute Narcotic dependency, continuous Acute Lumbosacral radiculopathy at L5 Acute Spinal stenosis, lumbar Acute DM type 1 (diabetes mellitus, type 1) Acute Aspiration pneumonia Acute COPD (chronic obstructive pulmonary disease) Acute Severe sepsis with septic shock Acute Altered mental status Acute Acute exacerbation of congestive heart failure Acute Atrial fibrillation with rapid ventricular response Acute Perforated bowel Acute
--- NOTE | 2017-04-18 14:59 | PDCARPN ---
Cardiology Progress Note Assessment/Plan: Assessment/plan: 72-year-old male with COPD and diabetes. He was admitted on April 12 with septic shock related to bowel perforation with peritonitis and gram-negative elvis bacteremia. He initially required pressor and ventilator support. He is now off pressors. Extubated 04/17. Upon admission he was also in rapid atrial fibrillation and had several attempts at cardioversion which were unsuccessful. He was placed on IV amiodarone. Mostly rated controlled He has been to the operating room for surgical repair of his bowel perforation and returned to OR for reanastomosis 04/16. 1. Atrial fibrillation: rate controlled on IV amiodarone. Not yet taking po. Started heparin drip yesterday but had bloody BM and Hct drop, so now anticoag on hold. 2. Septic shock related to bowel perforation: Followed by infectious disease. 3. Respiratory failure: extubated. Agree with continued diuresis. Repeat BNP. Echocardiogram with preserved LV systolic function, so there is certainly some element of diastolic dysfunction in the setting of massive fluid resuscitation related to his sepsis. He also has underlying COPD. 5. Borderline troponin upon admission: Likely related to physiological stress and atrial fibrillation. Could consider further risk stratification once he is over his acute illness. Will sign off, please call with questions. Thanks. 04/18/17 15:02 Subjective: Jose does complain of abd pain and SOB Reviewed/Discussed With: multidisciplinary team Objective: Vital Signs (8 Hrs) Temp Pulse Resp BP Pulse Ox 04/18/17 14:00 37.4 C 67 20 104/54 L 96 04/18/17 12:00 37.4 C 79 25 H 107/57 L 95 04/18/17 10:00 37.6 C 83 23 H 109/62 98 04/18/17 08:00 37.5 C 76 23 H 101/59 L 96 Intake/Output (24 Hrs) 04/17/17 04/18/17 04/19/17 05:59 05:59 05:59 Intake Total 2549 3531 Output Total 5206 4285 1300 Balance 1074 -754 -1300 Intake: IV Intake (ml) 403 1346 IV Infused (ml) 2146 2185 Amiodarone HCl 200 ml @ 281 As Directed 16.7 mls/min IV CONT BRITTANY Rx#: [id number] Ampicillin/Sulbactam 3 gm 100 In Ns 100 ml @ 200 mls/ hr IV Q6HRS BRITTANY Rx#: [id number] Dexmedetomidine HCl 400 118 mcg In Ns 100 ml @ Per Protocol IV CONT BRITTANY Rx#: [id number] Heparin/Dextrose 500 ml @ 386 Per Protocol IV CONT BRITTANY Rx#:[id number] Micafungin Na 100 mg In 100 Ns 100 ml @ 100 mls/hr IV DAILY BRITTANY Rx#:[id number] Ns 1,000 ml @ 25 mls/hr 264 IV CONT BRITTANY Rx#: [id number] Propofol/Emulsion 100 ml 418 @ Per Protocol IV CONT BRITTANY Rx#:[id number] TPN W/ Famotidine 1 ea IV 939 1280 DAILY21 BRITTANY Rx#: [id number] fentaNYL/NACL 100 ml @ 325 120 Per Protocol IV CONT BRITTANY Rx#:[id number] Output: Urine (ml) 1155 3425 950 Catheter 1155 3425 950 NG Tube Output (ml) 200 800 300 Large Bore (>12 Sami) 200 800 300 Left Naris Stomach KAREN Drain Output (ml) 120 60 50 Right Abdomen 120 60 50 Other: Weight 95.7 kg 92.8 kg 91.6 kg Output Comment Catheter post lasix Number of Stools Catheter 0 1 fatigued, appropriate JVP 12. Irreg irreg, no murmur Rhonchi anteriorly Trace bilat ankle edema Result Diagrams: 04/18/17 04:25 04/18/17 13:15 Telemetry: AF with CVR ICD10 Worksheet Patient Problems: Problems Problem Status Onset Renal failure Acute Tobacco dependence Acute Narcotic dependency, continuous Acute Lumbosacral radiculopathy at L5 Acute Spinal stenosis, lumbar Acute DM type 1 (diabetes mellitus, type 1) Acute Aspiration pneumonia Acute COPD (chronic obstructive pulmonary disease) Acute Severe sepsis with septic shock Acute Altered mental status Acute Acute exacerbation of congestive heart failure Acute Atrial fibrillation with rapid ventricular response Acute Perforated bowel Acute
[2017-04-18] MEDS: ONDANSETRON 4 MG/2 ML VIAL IVP PRN (17:39)
--- NOTE | 2017-04-18 19:33 | SOAPPROG ---
SOAP Progress Note Assessment/Plan: Assessment: 72-YEAR-OLD MALE WITH OPEN ABDOMEN AFTER PERFORATED BOWEL HAD INCARCERATED INGUINAL HERNIA/DOING REASONABLY WELL/STILL ON VENTILATOR/WOUND VAC IN PLACE ABDOMEN RELATIVELY SOFT/AFEBRILE/LAB STABLE CHEST RELATIVELY CLEAR/COR REGULAR RHYTHM Plan: CONSIDER LAPAROTOMY FOR WASHOUT AND POSSIBLE CLOSURE IN THE NEXT 12:48 P.M. FORTY EIGHT HOURS BEFORE EXTUBATION 04/14/17 12:45 04/15/17 12:00 AFEBRILE/VITAL SIGNS STABLE/STILL ON VENT/LARGE NG AND WOUND VAC OUTPUTS/WBC 14 K/ABDOMEN SOFT WITH BOWEL SOUNDS/TOLERATING THE VENTILATOR WELL BEING SO STABLE PLAN ON WOUND VAC CHANGE AND POSSIBLE ABDOMINAL CLOSURE IN THE A.M. UNLESS HIS CONDITION WORSENS OR INCREASING ABDOMINAL PRESSURE 04/15/17 14:33 04/18/17 19:30 AFEBRILE/ VAC IN PLACE AND FUNCTIONING/ WOUND OK/ ABD SOFT/ EPISODE OF LGI BLEED LAST PM BUT NO REPEAT AFTER STOPPING HEPARIN HCT STABLE/ INR 1.6/ PT PULLED HIS NG OUT/ UO GOOD Objective: Vital Signs Temp Pulse Resp BP Pulse Ox 37.5 C 77 19 104/54 L 97 04/18/17 18:00 04/18/17 18:00 04/18/17 18:00 04/18/17 14:00 04/18/17 18:00 Microbiology 04/13/17 06:15 Gram Stain - Final Abdomen - Eswab 04/15/17 14:20 Gram Stain - Final Other - Aspirate Laboratory Results 04/18/17 04:25 04/18/17 17:55 04/17/17 04/18/17 04/19/17 05:59 05:59 05:59 Intake Total 2549 3531 1891 Output Total 1475 4285 1710 Balance 1074 -754 181 PT 16.7 SEC (12.0-15.0) H 04/18/17 04:25 INR 1.35 (0.83-1.16) H 04/18/17 04:25 ICD10 Worksheet Patient Problems: Problems Problem Status Onset Acute exacerbation of congestive heart failure Acute Atrial fibrillation with rapid ventricular response Acute DM type 1 (diabetes mellitus, type 1) Acute Perforated bowel Acute Renal failure Acute Altered mental status Acute Aspiration pneumonia Acute COPD (chronic obstructive pulmonary disease) Acute Lumbosacral radiculopathy at L5 Acute Narcotic dependency, continuous Acute Severe sepsis with septic shock Acute Spinal stenosis, lumbar Acute Tobacco dependence Acute - ICD10 Problem Qualifiers (1) Perforated bowel
[2017-04-18] MEDS: AMIODARONE HCL 200 ML IV SCH (20:20)
[2017-04-18] MEDS: TPN W/ FAMOTIDINE 1 EA BAG IV SCH (20:36)
[2017-04-18] MEDS ORDERED: POTASSIUM Cl (KCl) 50 ML IV ONE (20:53)
[2017-04-18] MEDS ORDERED: POTASSIUM Cl (KCl) 100 ML IV ONE (21:30)
[2017-04-19] MEDS: AMPICILLIN/SULBACTAM 3 GM in NS 100 ML IV SCH ×5 (00:50→23:42)
[2017-04-19] MEDS: HYDROmorphONE/DILAUDID 1 MG/ML INJ IVP PRN ×7 (02:05→23:41)
[2017-04-19] MEDS: DEXMEDETOMIDINE HCL 400 MCG in NS 100 ML IV SCH ×3 (05:10→20:54)
[2017-04-19 05:30] LABS: PLATELET COUNT 141 10^3/uL (150-400)
[2017-04-19] MEDS: ALBUTEROL 3 ML DEYVIAL IH SCH ×4 (06:14→21:18)
[2017-04-19] MEDS: INSULIN REGULAR HUMAN 100 UNIT/ML SC SCH ×4 (06:46→18:26)
[2017-04-19] MEDS: FUROSEMIDE 40 MG/4 ML VIAL IVP SCH ×2 (08:23→14:42)
[2017-04-19] MEDS: MICAFUNGIN NA 100 MG in NS 100 ML IV SCH (08:23)
[2017-04-19] MEDS: CHLORHEXIDINE GLUCONATE 15 ML UDL PO SCH ×2 (08:23→19:49)
[2017-04-19] MEDS ORDERED: FUROSEMIDE 40 MG/4 ML VIAL IVP ONE (08:30)
--- NOTE | 2017-04-19 08:30 | SOAPPROG ---
SOAP Progress Note Assessment/Plan: Assessment/Plan: 72yo M s/p ex-lap for incarcerated/strangulated RIGH c necrotic cecum, proximal perforated small bowel. Now s/p re-anastomosis and closure Neuro: Precedex, IV Dilaudid. Still has a lot of pain but takes a lot narcotics as an outpatient he does appear comfortable. Will start him on some oral equivalents and restart his home medications once he has a little bit better bowel function Pulm: Chest x-ray this morning shows likely worsened edema verses aspiration on the right side. Hopefully Lasix will help diurese CV: Remains hemodynamically stable still in atrial fibrillation on amiodarone. Heparin drip has been held for lower GI bleed which was limited. I would be okay with restarting the heparin drip later this afternoon Abdomen: Soft, nondistended minimal bowel sounds VAC to midline wound, KAREN serosanguineous. Anticipate that his lower GI bleed was likely related to his anastomoses and has since stopped. Okay with ice chips for now, would like to see a little bit more robust bowel function prior to advancing Renal: UOP good, Cr 0.9 Heme: Hb stable at 9 has drifted somewhat Id: Afebrile, white count sitting in the 13-15 range on broad-spectrum antibiotics Dispo: His abdominal exam remains reassuring and is soft I feel it is lower GI bleed was likely limited and I am okay with restarting the heparin drip later today. Ice chips for now 04/13/17 05:14 04/16/17 09:19 04/16/17 09:24 04/16/17 09:29 04/17/17 10:27 04/19/17 08:27 Subjective: Wants unlimited amount of ice chips Objective: Vital Signs Temp Pulse Resp BP Pulse Ox 36.9 C 81 18 117/53 L 100 04/19/17 00:00 04/19/17 06:16 04/19/17 06:16 04/19/17 04:00 04/19/17 06:16 Microbiology 04/13/17 06:15 Gram Stain - Final Abdomen - Eswab 04/15/17 14:20 Gram Stain - Final Other - Aspirate Laboratory Results 04/19/17 05:15 04/19/17 05:15 04/18/17 04/19/1717 05:59 05:59 05:59 Intake Total 3531 3524 Output Total 1816 2435 Balance -754 239 PT 16.7 SEC (12.0-15.0) H 04/18/17 04:25 INR 1.35 (0.83-1.16) H 04/18/17 04:25 ICD10 Worksheet Patient Problems: Problems Problem Status Onset Acute exacerbation of congestive heart failure Acute Atrial fibrillation with rapid ventricular response Acute DM type 1 (diabetes mellitus, type 1) Acute Perforated bowel Acute Renal failure Acute Altered mental status Acute Aspiration pneumonia Acute COPD (chronic obstructive pulmonary disease) Acute Lumbosacral radiculopathy at L5 Acute Narcotic dependency, continuous Acute Severe sepsis with septic shock Acute Spinal stenosis, lumbar Acute Tobacco dependence Acute
[2017-04-19] MEDS: NICOTINE 21 MG/24 HR PATCH TD SCH (09:55)
--- NOTE | 2017-04-19 10:56 | HOSPPROG ---
Hospitalist Progress Note Assessment/Plan: # sepsis - off pressors - source abdomen/bacteremia # polymicrobial bacteremia d/t staph epi and bacteroides # small bowel perforation with gross peritonitis - unasyn/micafungin - fascia closed, wound vac in subcutaneous space # necrotic cecum in incarcerated hernia # a-fib s/p failed cardioversion - restart heparin gtt today at 1p - amiodarone # acute on chronic resp failure/COPD - extubated - baseline O2 2-4L # acute diastolic CHF - cont lasix - still +9L # YOLANDA - resolved # chronic narcotic dependency on continuous narcotics d/t lumbar stenosis - on precedex, getting narcotics IV # TPN Subjective: confused - asking to see Dr Glez but will not explain further; no additional bloody BMs Objective: Vital Signs Temp Pulse Resp BP Pulse Ox 36.9 C 81 18 117/53 L 100 04/19/17 00:00 04/19/17 06:16 04/19/17 06:16 04/19/17 04:00 04/19/17 06:16 Microbiology 04/13/17 06:15 Gram Stain - Final Abdomen - Eswab 04/15/17 14:20 Gram Stain - Final Other - Aspirate Laboratory Results 04/19/17 05:15 04/19/17 05:15 04/18/17 04/19/17 04/20/17 05:59 05:59 05:59 Intake Total 3531 3524 Output Total 4285 3285 Balance -754 239 PT 16.7 SEC (12.0-15.0) H 04/18/17 04:25 INR 1.35 (0.83-1.16) H 04/18/17 04:25 - Physical Exam Constitutional: no apparent distress, appears nourished Cardiovascular: no murmur, rub, or gallop, irregularly irregular Respiratory: no respiratory distress, no rales or rhonchi, clear to auscultation Gastrointestinal: normoactive bowel sounds, other (KAREN drain; TTP, mostly RLQ), No distension ICD10 Worksheet Patient Problems: Problems Problem Status Onset Renal failure Acute Tobacco dependence Acute Narcotic dependency, continuous Acute Lumbosacral radiculopathy at L5 Acute Spinal stenosis, lumbar Acute DM type 1 (diabetes mellitus, type 1) Acute Aspiration pneumonia Acute COPD (chronic obstructive pulmonary disease) Acute Severe sepsis with septic shock Acute Altered mental status Acute Acute exacerbation of congestive heart failure Acute Atrial fibrillation with rapid ventricular response Acute Perforated bowel Acute
--- NOTE | 2017-04-19 14:56 | PDINTPN ---
Sales Recruiting Coordinator Progress Note Assessment/Plan: Assessment/plan: 72 M admitted 04/12/17 with septic shock and rapid afib, found to have bowel perforation and required emergent surgery and has remained intubated. * Peritonitis with septic shock and likely abdominal contamination. Currently on Unasyn and micafungin with decreasing WBC and afebrile. Wound cx with Klebsiella; blood with S. Epi and bacteroides; bronch cultures negative from . WBC falling today * Acute respiratory failure with hypoxemia- CXR with increased infiltrates R>L. Afebrile but slight bump in WBC to 14. Trial extra lasix today but watch closely and get swallow eval. Discuss with surgery prior to advance diet. * Afib- currently in afib and resumed amiodarone 2/2 climbing rate on 04/17. Surgery OK'd full anticoagulation for CVA prophylaxis, so started UFH drip, but apparently had bloody stool this and Hct dropped from 36 to 31, so stopped again. BP OK and no further signs of bleeding. Cleared for AC again- retry. * YOLANDA- improving labs and UOP, though BUN creeping up. * DM- controlled * COPD- not a currently active issue * 04/19/17 14:53 Subjective: Stable overnight but high O2 requirement. Objective: Vital Signs Temp Pulse Resp BP Pulse Ox 36.9 C 93 22 H 133/65 H 93 04/19/17 12:00 04/19/17 14:00 04/19/17 14:00 04/19/17 14:00 04/19/17 14:00 Microbiology 04/13/17 06:15 Gram Stain - Final Abdomen - Eswab Laboratory Results 04/19/17 05:15 04/19/17 13:01 04/18/17 04/19/17 04/20/17 05:59 05:59 05:59 Intake Total 3531 3524 Output Total 4285 3285 Balance -754 239 PT 16.7 SEC (12.0-15.0) H 04/18/17 04:25 INR 1.35 (0.83-1.16) H 04/18/17 04:25 Physical Exam - Physical Exam General Appearance: alert, no apparent distress EENT: PERRL/EOMI Neck: supple Respiratory: decreased breath sounds, No respiratory distress, No accessory muscle use Cardiac/Chest: edema, irregularly irregular Abdomen: soft, No distended Skin: normal color, warm/dry Lymphatic: no adenopathy Extremities: pedal edema, other (severe venous stasis changes) Neuro/Psych: alert, normal mood/affect ICD10 Worksheet Patient Problems: Problems Problem Status Onset Acute exacerbation of congestive heart failure Acute Atrial fibrillation with rapid ventricular response Acute DM type 1 (diabetes mellitus, type 1) Acute Perforated bowel Acute Renal failure Acute Altered mental status Acute Aspiration pneumonia Acute COPD (chronic obstructive pulmonary disease) Acute Lumbosacral radiculopathy at L5 Acute Narcotic dependency, continuous Acute Severe sepsis with septic shock Acute Spinal stenosis, lumbar Acute Tobacco dependence Acute
[2017-04-19] MEDS: HEPARIN/DEXTROSE 500 ML IV SCH (15:20)
--- NOTE | 2017-04-19 16:42 | PCMIDPN ---
Assessment/Plan: Assessment: Septic shock secondary to peritonitis after incarcerated cecum became necrotic. Off all pressors. Making slow and steady improvement. Currently being managed on Unasyn and micafungin. No changes planned present. Plan: 1. Continue Unasyn and micafungin. 2. Follow-up clinical course. Subjective: Patient is resting in his hospital bed in the ICU. He is conversant and stable. Denies any fevers or chills. Objective: Unasyn # 3 Micafungin # 6 Vital Signs Temp Pulse Resp BP Pulse Ox 37.4 C 88 23 H 165/83 H 96 04/19/17 16:00 04/19/17 16:00 04/19/17 16:00 04/19/17 16:00 04/19/17 16:00 Microbiology 04/13/17 06:15 Gram Stain - Final Abdomen - Eswab Laboratory Results 04/19/17 05:15 04/19/17 13:01 04/18/17 04/19/17 04/20/17 05:59 05:59 05:59 Intake Total 3531 3524 1838.6 Output Total 4285 3285 3575 Balance -754 239 -8726.4 - Physical Exam General Appearance: WD/WN, alert Respiratory: lungs clear, normal breath sounds, No respiratory distress Cardiac/Chest: regular rate, rhythm, No tachycardia Abdomen: soft, No non-tender Skin: normal color, warm/dry, No rash Neuro/Psych: alert, normal mood/affect, oriented x 3 ICD10 Worksheet Patient Problems: Problems Problem Status Onset Acute exacerbation of congestive heart failure Acute Atrial fibrillation with rapid ventricular response Acute DM type 1 (diabetes mellitus, type 1) Acute Perforated bowel Acute Renal failure Acute Altered mental status Acute Aspiration pneumonia Acute COPD (chronic obstructive pulmonary disease) Acute Lumbosacral radiculopathy at L5 Acute Narcotic dependency, continuous Acute Severe sepsis with septic shock Acute Spinal stenosis, lumbar Acute Tobacco dependence Acute
[2017-04-19] MEDS: TPN W/ FAMOTIDINE 1 EA BAG IV SCH (20:38)
[2017-04-19] MEDS: AMIODARONE HCL 200 ML IV SCH (20:56)
[2017-04-19] MEDS ORDERED: POTASSIUM Cl (KCl) 50 ML IV ONE (21:00)
[2017-04-19] MEDS ORDERED: POTASSIUM Cl (KCl) 100 ML IV ONE (21:15)
[2017-04-20] MEDS: HYDROmorphONE/DILAUDID 1 MG/ML INJ IVP PRN ×5 (02:21→13:22)
[2017-04-20] MEDS: HEPARIN/DEXTROSE 500 ML IV SCH (04:47)
[2017-04-20] MEDS: AMPICILLIN/SULBACTAM 3 GM in NS 100 ML IV SCH ×4 (04:53→23:22)
[2017-04-20] MEDS: ALBUTEROL 3 ML DEYVIAL IH SCH ×4 (05:58→21:37)
[2017-04-20] MEDS: INSULIN REGULAR HUMAN 100 UNIT/ML SC SCH ×4 (06:10→18:30)
[2017-04-20] MEDS: CHLORHEXIDINE GLUCONATE 15 ML UDL PO SCH ×2 (09:27→19:11)
[2017-04-20] MEDS: FUROSEMIDE 40 MG/4 ML VIAL IVP SCH ×2 (09:27→14:18)
[2017-04-20] MEDS: MICAFUNGIN NA 100 MG in NS 100 ML IV SCH (09:28)
[2017-04-20] MEDS: NICOTINE 21 MG/24 HR PATCH TD SCH (09:28)
--- NOTE | 2017-04-20 09:59 | SOAPPROG ---
SOAP Progress Note Assessment/Plan: Assessment/Plan: 72yo M s/p ex-lap for incarcerated/strangulated RIGH c necrotic cecum, proximal perforated small bowel. Now s/p re-anastomosis and closure - Jose looks much better today, his pain is better controlled and he is breathing better. He had another small bloody BM this AM but his H&H has remained stable. Will cont his hep gtt for now and re-eval this afternoon. If he continues to have bloody BMs or his Hb drifts then I will stop the gtt. OK for clears. VAC change today. Making progress 04/13/17 05:14 04/16/17 09:19 04/16/17 09:24 04/16/17 09:29 04/17/17 10:27 04/19/17 08:27 04/20/17 09:58 Subjective: Feels better today, wants to drink. Objective: Vital Signs Temp Pulse Resp BP Pulse Ox 36.8 C 84 22 H 134/52 H 98 04/20/17 04:00 04/20/17 05:59 04/20/17 06:16 04/20/17 04:00 04/20/17 06:16 Microbiology 04/13/17 06:15 Gram Stain - Final Abdomen - Eswab Laboratory Results 04/20/17 04:10 04/20/17 04:10 04/19/17 04/20/17 04/21/17 05:59 05:59 05:59 Intake Total 3524 4286.6 Output Total 3285 5030 Balance 239 -743.4 PT 16.7 SEC (12.0-15.0) H 04/18/17 04:25 INR 1.35 (0.83-1.16) H 04/18/17 04:25 ICD10 Worksheet Patient Problems: Problems Problem Status Onset Acute exacerbation of congestive heart failure Acute Atrial fibrillation with rapid ventricular response Acute DM type 1 (diabetes mellitus, type 1) Acute Perforated bowel Acute Renal failure Acute Altered mental status Acute Aspiration pneumonia Acute COPD (chronic obstructive pulmonary disease) Acute Lumbosacral radiculopathy at L5 Acute Narcotic dependency, continuous Acute Severe sepsis with septic shock Acute Spinal stenosis, lumbar Acute Tobacco dependence Acute
--- NOTE | 2017-04-20 10:31 | HOSPPROG ---
Hospitalist Progress Note Assessment/Plan: # sepsis - off pressors - source abdomen/bacteremia # polymicrobial bacteremia d/t staph epi and bacteroides # small bowel perforation with gross peritonitis - unasyn/micafungin - fascia closed, wound vac in subcutaneous space # acute on chronic pain on continuous narcotics - restart high dose home PO narcotics, cont IV # necrotic cecum in incarcerated hernia # a-fib s/p failed cardioversion - heparin gtt - amiodarone - rate controlled # acute on chronic resp failure/COPD - extubated - baseline O2 2-4L # acute diastolic CHF - cont lasix - still +9L # YOLANDA - resolved # chronic narcotic dependency on continuous narcotics d/t lumbar stenosis - on precedex, getting narcotics IV # TPN # change to PO meds as possible Subjective: complains of thirst; wants ice chips Objective: Vital Signs Temp Pulse Resp BP Pulse Ox 36.8 C 84 22 H 134/52 H 98 04/20/17 04:00 04/20/17 05:59 04/20/17 06:16 04/20/17 04:00 04/20/17 06:16 Microbiology 04/13/17 06:15 Gram Stain - Final Abdomen - Eswab Laboratory Results 04/20/17 04:10 04/20/17 04:10 04/19/17 04/20/17 04/21/17 05:59 05:59 05:59 Intake Total 3524 4286.6 Output Total 3285 5030 Balance 239 -743.4 PT 16.7 SEC (12.0-15.0) H 04/18/17 04:25 INR 1.35 (0.83-1.16) H 04/18/17 04:25 high risk - Physical Exam Constitutional: chronically ill appearing Cardiovascular: regular rate and rhythym, no murmur, rub, or gallop Respiratory: no respiratory distress, no rales or rhonchi, clear to auscultation Gastrointestinal: other (soft, TTP, ), No guarding, No rebound ICD10 Worksheet Patient Problems: Problems Problem Status Onset Renal failure Acute Tobacco dependence Acute Narcotic dependency, continuous Acute Lumbosacral radiculopathy at L5 Acute Spinal stenosis, lumbar Acute DM type 1 (diabetes mellitus, type 1) Acute Aspiration pneumonia Acute COPD (chronic obstructive pulmonary disease) Acute Severe sepsis with septic shock Acute Altered mental status Acute Acute exacerbation of congestive heart failure Acute Atrial fibrillation with rapid ventricular response Acute Perforated bowel Acute
[2017-04-20] MEDS: COLLAGENASE 30 GM OINTMENT TP SCH (11:11)
[2017-04-20] MEDS ORDERED: morphINE SR 100 MG TAB PO SCH (11:15)
--- NOTE | 2017-04-20 12:24 | PCMIDPN ---
Assessment/Plan: 1. Septic shock secondary to peritonitis. Patient with history of incarcerated/ strangulated right inguinal hernia with perforated small bowel and necrotic cecum status post washout and wound VAC placement, most recent washout 04/16: The patient grew Klebsiella pneumoniae and bacteroides from abdominal cultures, but no fungi were isolated. Berkley albicans is from a bronch specimen, which is likely insignificant. That being said, given small bowel involvement, catastrophic abdominal event, and the fact that he is improving clinically will continue with anti fungal in the form of Micafungin as is. Continue Unasyn. Will likely treat for 2 weeks post recent washout on April 16, stop date April 30. Will repeat blood cultures to document clearance of gram-negative anaerobe given the complicated nature of this patient and the fact that he has hardware in his back. Subjective: In good spirits. Tells me that he feels much better overall. Objective: Unasyn 3 g IV q.6 hours day for Micafungin 100 mg IV daily day 7 Postop day 4 status post most recent washout and abdominal closure on April 16 Vital Signs Temp Pulse Resp BP Pulse Ox 36.8 C 84 22 H 134/52 H 98 04/20/17 04:00 04/20/17 05:59 04/20/17 06:16 04/20/17 04:00 04/20/17 06:16 Microbiology 04/13/17 06:15 Gram Stain - Final Abdomen - Eswab Laboratory Results 04/20/17 04:10 04/20/17 04:10 04/19/17 04/20/17 04/21/17 05:59 05:59 05:59 Intake Total 3524 4286.6 Output Total 3285 5030 Balance 239 -743.4 Abdominal cultures April 13 grew Klebsiella pneumoniae and bacteroides. Fungal culture negative April 15 bronchoscopy specimen with rare Berkley albicans - Physical Exam General Appearance: alert, no apparent distress EENT: pharynx normal, No thrush Respiratory: coarse breath sounds Cardiac/Chest: regular rate, rhythm Extremities: other (PICC line left upper extremity looks fine.) Abdomen: other (Midline wound VAC in place with no marginal erythema or tenderness. Patient's incisions look fine. KAREN drain with minimal serosanguineous drainage. No significant tenderness.) Skin: other (Reticulated demarcation left forearm, volar aspect.) ICD10 Worksheet Patient Problems: Problems Problem Status Onset Acute exacerbation of congestive heart failure Acute Atrial fibrillation with rapid ventricular response Acute DM type 1 (diabetes mellitus, type 1) Acute Perforated bowel Acute Renal failure Acute Altered mental status Acute Aspiration pneumonia Acute COPD (chronic obstructive pulmonary disease) Acute Lumbosacral radiculopathy at L5 Acute Narcotic dependency, continuous Acute Severe sepsis with septic shock Acute Spinal stenosis, lumbar Acute Tobacco dependence Acute
[2017-04-20] MEDS: morphINE SR 100 MG TAB PO SCH ×2 (13:23→20:23)
[2017-04-20] MEDS: PREGABALIN 75 MG CAP PO SCH ×2 (14:18→20:23)
[2017-04-20] MEDS: AMIODARONE HCL 200 MG TAB PO SCH ×2 (14:18→20:23)
--- NOTE | 2017-04-20 16:03 | WOCRNPDOC ---
LISA Advanced Assessment Note - Skin Integrity Problem, Advanced Assess Medial Back Pressure Injury Dressing Type: Allevyn Life, Honey Alginate Dressing Description: Intact Exudate Amount: Minimal Exudate Color: Reddish/Yellow Exudate Characteristic(s): Serosanguinous Integumentary Issue Intervention: Dressing Changed Monty Wound Tissue: Blanching, Erythema, Scarred Monty Wound Swelling: Mild Wound Bed Color: Black, Red, Yellow Wound Bed Constitution: Smooth Tissue (non-granulating, chronic in appearance) Site Odor: None Pressure Injury Stage: Stage 3 Pressure Injury Present on Admit: Yes (Documented in H&P) Skin Integrity Problem Comment: Stage 3 wound on mid-thoracic spine has new formation of adhered slough and eschar. Honey alginate not effective in debriding this tissue; initiated Santyl today to promote more aggressive removal of necrosis. Monty-wound skin is intact, scarred throughout w/ blanching erythema. Nursing should continue to off-load this site using TAPS, turning side to side. Coccyx Pressure Injury Dressing Type: Open to Air Exudate Amount: None Exudate Characteristic(s): None Integumentary Issue Intervention: Barrier Cream Applied (Calazime) Monty Wound Tissue: Blanching, Intact Monty Wound Swelling: None Wound Bed Color: Red Pressure Injury Stage: Stage 2 Pressure Injury Present on Admit: Yes (Documented in H&P) Skin Integrity Problem Comment: Small area of partial-thickness tissue loss directly over coccyx remains largely unchanged since previous assessment. Suspect tissue injury is also attributed to chronic moisture from incontinence as well. Monty-wound skin remains intact and blanching. Continue w/ Calazime BID and off-loading site. Medial Abdomen Surgical Wound/Incision Dressing Type: Black Vac Foam, Wound Vac Dressing Description: Intact Exudate Amount: Minimal Exudate Color: Reddish/Yellow Exudate Characteristic(s): Serosanguinous Integumentary Issue Intervention: Dressing Changed Monty Wound Tissue: Intact Monty Wound Swelling: None Wound Bed Color: Red Wound Bed Constitution: Granulation Tissue (100%) Wound Edges: Well Defined Site Odor: None Site Measurement - Head-to-Toe Length X Width X Depth (cm): [id number] Skin Integrity Problem Comment: Wound vac dressing change per request of Dr. Avendaño. Large, midline surgical incision noted, w/ 100% beefy, granulating tissue and no apparent necrosis. Monty-wound skin intact, w/ exception of lateral , stapled incision over patient's R inguinal area, currently well-approximated. Wound flushed w/ NS and gauze, and monty-wound skin prepped and draped. One large piece of black granulofoam sponge cut to fit the wound bed. Vac setting resume at -125mmHg, low continuous suction. Despite pre-medicating w/ IV Dilaudid, patient c/o 8/10 pain during the dressing change. Advise using topical Lidocaine instilled into vac sponge using an 18 gauge needle 10-15 minutes prior to next dressing change. Next vac dressing change scheduled on Monday 04/23.
--- NOTE | 2017-04-20 16:10 | PDINTPN ---
Satellite Dish Technician Progress Note Assessment/Plan: Assessment/plan: 72 M admitted 04/12/17 with septic shock and rapid afib, found to have bowel perforation and required emergent surgery and has remained intubated. * Peritonitis with septic shock and likely abdominal contamination. Currently on Unasyn and micafungin with decreasing WBC and afebrile. Wound cx with Klebsiella; blood with S. Epi and bacteroides; bronch cultures negative from . Continues to improve * Acute respiratory failure with hypoxemia- CXR with increased infiltrates R>L. Afebrile but slight bump in WBC to 14. Lasix appeared successful; though WBC continues to creep up. Remains on Unasyn/micafungin * Afib- currently in afib and resumed amiodarone 2/2 climbing rate on 04/17. Surgery OK'd full anticoagulation for CVA prophylaxis, so started UFH drip, but apparently had bloody stool this and Hct dropped from 36 to 31, so stopped again. BP OK and no further signs of bleeding. Cleared for AC again- retry without evidence of bleeding. Can likely change to oral amiodarone * YOLANDA- improving labs and UOP, though BUN creeping up. * DM- controlled * COPD- not a currently active issue * Probably OK for PCU in AM Subjective: feels much better today. Additional BM today with ?BRB. Minimal O2 requirement Objective: Vital Signs Temp Pulse Resp BP Pulse Ox 36.8 C 73 22 H 134/52 H 99 04/20/17 04:00 04/20/17 12:20 04/20/17 12:20 04/20/17 04:00 04/20/17 12:20 Microbiology 04/13/17 06:15 Gram Stain - Final Abdomen - Eswab Anaerobic Culture - Final Klebsiella Pneumoniae Bacteroides [facility] Laboratory Results 04/20/17 12:36 04/20/17 04:10 04/19/17 04/20/17 04/21/17 05:59 05:59 05:59 Intake Total 3524 4286.6 Output Total 3285 5030 1875 Balance 239 -743.4 -1875 PT 16.7 SEC (12.0-15.0) H 04/18/17 04:25 INR 1.35 (0.83-1.16) H 04/18/17 04:25 Physical Exam - Physical Exam General Appearance: WD/WN, alert, no apparent distress EENT: PERRL/EOMI Neck: supple Respiratory: rhonchi, No respiratory distress Cardiac/Chest: edema, No tachycardia Abdomen: normal bowel sounds, soft, No distended Skin: normal color, warm/dry Lymphatic: no adenopathy Neuro/Psych: alert, normal mood/affect, oriented x 3 ICD10 Worksheet Patient Problems: Problems Problem Status Onset Acute exacerbation of congestive heart failure Acute Atrial fibrillation with rapid ventricular response Acute DM type 1 (diabetes mellitus, type 1) Acute Perforated bowel Acute Renal failure Acute Altered mental status Acute Aspiration pneumonia Acute COPD (chronic obstructive pulmonary disease) Acute Lumbosacral radiculopathy at L5 Acute Narcotic dependency, continuous Acute Severe sepsis with septic shock Acute Spinal stenosis, lumbar Acute Tobacco dependence Acute
--- NOTE | 2017-04-20 16:34 | ASMTCMCOM ---
CM Note CM Note Notes: Pt may transfer to PCU tomorrow if medically ready. Received call from [facility] asking for pt's d/c plan - informed her pt will d/c to [facility] when medically cleared. CM will continue to follow. Date Signed: 04/20/2017 04:33 PM Electronically Signed By:MIGUE Johnson
--- NOTE | 2017-04-20 16:34 | ASMTCMCOM ---
CM Note CM Note Notes: Pt may transfer to PCU tomorrow if medically ready. Received call from [facility] asking for pt's d/c plan - informed her pt will d/c to [facility] when medically cleared. CM will continue to follow. Date Signed: 04/20/2017 04:33 PM Electronically Signed By:MIGUE Johnson
--- NOTE | 2017-04-20 16:34 | ASMTCMCOM ---
CM Note CM Note Notes: Pt may transfer to PCU tomorrow if medically ready. Received call from [facility] asking for pt's d/c plan - informed her pt will d/c to [facility] when medically cleared. CM will continue to follow. Date Signed: 04/20/2017 04:33 PM Electronically Signed By:MIGUE Johnson
[2017-04-20] MEDS: oxyCODONE IR 15 MG TAB PO PRN ×2 (18:29→23:09)
[2017-04-20] MEDS: TPN W/ FAMOTIDINE 1 EA BAG IV SCH (20:24)
[2017-04-20] MEDS: QUEtiapine FUMARATE 25 MG TAB PO SCH (20:24)
[2017-04-20] MEDS ORDERED: HEPARIN 10,000 UNIT/10 ML MDV ONE (23:20)
[2017-04-20] MEDS: HEPARIN 10,000 UNIT/10 ML MDV IVP PRN (23:22)
[2017-04-21] MEDS: INSULIN REGULAR HUMAN 100 UNIT/ML SC SCH ×4 (00:17→17:51)
[2017-04-21] MEDS: AMPICILLIN/SULBACTAM 3 GM in NS 100 ML IV SCH ×3 (05:30→17:35)
[2017-04-21] MEDS: ALBUTEROL 3 ML DEYVIAL IH SCH ×4 (06:16→21:48)
[2017-04-21] MEDS: HEPARIN/DEXTROSE 500 ML IV SCH ×2 (07:12→20:26)
[2017-04-21] MEDS: HEPARIN 10,000 UNIT/10 ML MDV IVP PRN (07:13)
[2017-04-21] MEDS: NICOTINE 21 MG/24 HR PATCH TD SCH (08:29)
[2017-04-21] MEDS: FUROSEMIDE 40 MG/4 ML VIAL IVP SCH (08:30)
[2017-04-21] MEDS: PREGABALIN 75 MG CAP PO SCH ×3 (08:32→21:10)
[2017-04-21] MEDS: morphINE SR 100 MG TAB PO SCH ×3 (08:32→21:11)
[2017-04-21] MEDS: AMIODARONE HCL 200 MG TAB PO SCH ×2 (08:33→20:27)
[2017-04-21] MEDS: CHLORHEXIDINE GLUCONATE 15 ML UDL PO SCH ×2 (08:37→20:27)
[2017-04-21] MEDS: NS 1,000 ML IV SCH (09:08)
[2017-04-21] MEDS: MICAFUNGIN NA 100 MG in NS 100 ML IV SCH (09:13)
[2017-04-21] MEDS: oxyCODONE IR 15 MG TAB PO PRN ×2 (09:19→17:32)
[2017-04-21 09:28] LABS: PLATELET COUNT 209 10^3/uL (150-400)
--- NOTE | 2017-04-21 10:32 | SOAPPROG ---
SOAP Progress Note Assessment/Plan: Assessment/Plan: 72yo M s/p ex-lap for incarcerated/strangulated RIGH c necrotic cecum, proximal perforated small bowel. Now s/p re-anastomosis and closure - Jose continues to look good on the floor. His abdomen remained soft nondistended and appropriately tender. His wound VAC was changed yesterday without issues. I will advance his diet to full this morning and regular this afternoon if he continues to tolerate. His white count is up today at 18 given his clinical improvement I am hesitant to pursue any imaging but if remains elevated the next day or so will likely need repeat CT scan imaging of his abdomen I would not do this today 04/13/17 05:14 04/16/17 09:19 04/16/17 09:24 04/16/17 09:29 04/17/17 10:27 04/19/17 08:27 04/20/17 09:58 04/21/17 10:31 Subjective: Looks great, is hungry. Continues to pass flatus and non bloody bowel movements Objective: Vital Signs Temp Pulse Resp BP Pulse Ox 37.2 C 83 18 111/51 L 98 04/21/17 04:00 04/21/17 06:17 04/21/17 06:17 04/21/17 04:00 04/21/17 06:17 Microbiology 04/13/17 06:15 Gram Stain - Final Abdomen - Eswab Anaerobic Culture - Final Klebsiella Pneumoniae Bacteroides [facility] Laboratory Results 04/21/17 09:00 04/21/17 05:30 04/20/17 04/21/17 04/22/17 05:59 05:59 05:59 Intake Total 4286.6 4127 Output Total 5030 3740 Balance -743.4 387 PT 16.7 SEC (12.0-15.0) H 04/18/17 04:25 INR 1.35 (0.83-1.16) H 04/18/17 04:25 ICD10 Worksheet Patient Problems: Problems Problem Status Onset Acute exacerbation of congestive heart failure Acute Atrial fibrillation with rapid ventricular response Acute DM type 1 (diabetes mellitus, type 1) Acute Perforated bowel Acute Renal failure Acute Altered mental status Acute Aspiration pneumonia Acute COPD (chronic obstructive pulmonary disease) Acute Lumbosacral radiculopathy at L5 Acute Narcotic dependency, continuous Acute Severe sepsis with septic shock Acute Spinal stenosis, lumbar Acute Tobacco dependence Acute
--- NOTE | 2017-04-21 11:28 | PCMIDPN ---
Assessment/Plan: 1. Septic shock secondary to peritonitis. Patient with history of incarcerated/ strangulated right inguinal hernia with perforated small bowel and necrotic cecum status post washout and wound VAC placement, most recent washout 04/16: [place] [address] is concerning, although the patient clinically remains quite stable. Agree with General surgery recommendation. If white blood cell count continues to increase, would pursue repeat CT scan tomorrow. Continue Unasyn and Micafungin as is, as outlined in my note yesterday, although the patient never grew fungi in his abdominal fluid. Repeat blood cultures are pending. Will repeat chest x-ray, but obtain PA and lateral in the setting of white blood cell count. No diarrhea. Subjective: [place] [address] today. Patient states he has no increased abdominal pain. No shaking chills. No significant cough. No diarrhea. Objective: Unasyn 3 g IV q.6 hours day 5. Micafungin 100 mg IV daily day 8 T-max 37.5degrees Vital Signs Temp Pulse Resp BP Pulse Ox 37.2 C 85 16 111/51 L 99 04/21/17 04:00 04/21/17 10:25 04/21/17 10:25 04/21/17 04:00 04/21/17 10:25 Microbiology 04/13/17 06:15 Gram Stain - Final Abdomen - Eswab Anaerobic Culture - Final Klebsiella Pneumoniae Bacteroides [facility] Laboratory Results 04/21/17 09:00 04/21/17 05:30 04/20/17 04/21/17 04/22/17 05:59 05:59 05:59 Intake Total 4286.6 4127 Output Total 5030 3740 Balance -743.4 387 Repeat blood cultures pending - Physical Exam General Appearance: alert, no apparent distress EENT: pharynx normal, other (No teeth) Respiratory: coarse breath sounds Cardiac/Chest: regular rate, rhythm Extremities: other (Small hematoma left forearm. Mild pitting edema of the left arm and hand, that the patient feels is from the blood pressure cuff. Able to flex and extend his wrist without pain.) Abdomen: other (Hypoactive bowel sounds. Wound VAC in place. No obvious cellulitis around the VAC. There is also a horizontal incision right lower quadrant with manjit in place that is without erythema or drainage. Some tenderness to palpation left lower quadrant. KAREN drain in place that is mostly empty.) Skin: No rash ICD10 Worksheet Patient Problems: Problems Problem Status Onset Acute exacerbation of congestive heart failure Acute Atrial fibrillation with rapid ventricular response Acute DM type 1 (diabetes mellitus, type 1) Acute Perforated bowel Acute Renal failure Acute Altered mental status Acute Aspiration pneumonia Acute COPD (chronic obstructive pulmonary disease) Acute Lumbosacral radiculopathy at L5 Acute Narcotic dependency, continuous Acute Severe sepsis with septic shock Acute Spinal stenosis, lumbar Acute Tobacco dependence Acute
[2017-04-21] MEDS ORDERED: CALCIUM GLUCONATE 50 ML IV ONE (12:49)
[2017-04-21] MEDS: COLLAGENASE 30 GM OINTMENT TP SCH (13:04)
--- NOTE | 2017-04-21 14:13 | HOSPPROG ---
Hospitalist Progress Note Assessment/Plan: # sepsis - off pressors - source abdomen/bacteremia # polymicrobial bacteremia d/t staph epi and bacteroides # small bowel perforation with gross peritonitis - necrotic cecum in incarcerated hernia - unasyn/micafungin - fascia closed, wound vac in subcutaneous space - WBC up today - follow clinically, CT if worsens # hypotension - mild; will hold pm dose of lasix # volume overload/acute diastolic CHF - still positive 8L - will need more diuresis when pressure tolerates # penile edema - elevate, follow # acute on chronic pain on continuous narcotics - restart high dose home PO narcotics, cont IV # a-fib s/p failed cardioversion - heparin gtt - amiodarone - rate controlled # acute on chronic resp failure/COPD - extubated - baseline O2 2-4L # YOLANDA - resolved # chronic narcotic dependency on continuous narcotics d/t lumbar stenosis - on precedex, getting narcotics IV # TPN Subjective: no worsening abd pain; edematous penis Objective: Vital Signs Temp Pulse Resp BP Pulse Ox 37.2 C 86 15 91/46 L 97 04/21/17 12:00 04/21/17 12:00 04/21/17 12:00 04/21/17 12:00 04/21/17 12:00 Microbiology 04/13/17 06:15 Gram Stain - Final Abdomen - Eswab Anaerobic Culture - Final Klebsiella Pneumoniae Bacteroides [facility] Laboratory Results 04/21/17 09:00 04/20/17 04/21/17 04/22/17 05:59 05:59 05:59 Intake Total 4286.6 4127 100 Output Total 5030 3740 Balance -743.4 387 100 PT 16.7 SEC (12.0-15.0) H 04/18/17 04:25 INR 1.35 (0.83-1.16) H 04/18/17 04:25 high risk with rising WBC - Physical Exam Constitutional: no apparent distress, appears nourished Cardiovascular: regular rate and rhythym, no murmur, rub, or gallop Respiratory: no respiratory distress, no rales or rhonchi, clear to auscultation Gastrointestinal: other (midline wound vac; KAREN drain; TTP diffusely), No guarding, No rebound Genitourinary: ferguson in urethra, other (penile edema) ICD10 Worksheet Patient Problems: Problems Problem Status Onset Renal failure Acute Tobacco dependence Acute Narcotic dependency, continuous Acute Lumbosacral radiculopathy at L5 Acute Spinal stenosis, lumbar Acute DM type 1 (diabetes mellitus, type 1) Acute Aspiration pneumonia Acute COPD (chronic obstructive pulmonary disease) Acute Severe sepsis with septic shock Acute Altered mental status Acute Acute exacerbation of congestive heart failure Acute Atrial fibrillation with rapid ventricular response Acute Perforated bowel Acute
[2017-04-21] MEDS: TPN W/ FAMOTIDINE 1 EA BAG IV SCH (20:26)
[2017-04-21] MEDS: QUEtiapine FUMARATE 25 MG TAB PO SCH (20:27)
[2017-04-22] MEDS: AMPICILLIN/SULBACTAM 3 GM in NS 100 ML IV SCH ×2 (00:48→05:39)
[2017-04-22] MEDS: INSULIN REGULAR HUMAN 100 UNIT/ML SC SCH ×4 (00:49→17:38)
[2017-04-22] MEDS: ALBUTEROL 3 ML DEYVIAL IH SCH ×4 (05:24→20:28)
[2017-04-22] MEDS: oxyCODONE IR 15 MG TAB PO PRN (05:39)
[2017-04-22 05:46] LABS: PLATELET COUNT 219 10^3/uL (150-400)
[2017-04-22] MEDS ORDERED: CALCIUM GLUCONATE 50 ML IV ONE (07:17)
[2017-04-22] MEDS: HEPARIN/DEXTROSE 500 ML IV SCH (08:03)
[2017-04-22] MEDS: PREGABALIN 75 MG CAP PO SCH ×3 (08:07→21:04)
[2017-04-22] MEDS: AMIODARONE HCL 200 MG TAB PO SCH ×2 (08:07→21:05)
[2017-04-22] MEDS: morphINE SR 100 MG TAB PO SCH ×3 (08:07→21:04)
[2017-04-22] MEDS: NICOTINE 21 MG/24 HR PATCH TD SCH (08:08)
[2017-04-22] MEDS: MICAFUNGIN NA 100 MG in NS 100 ML IV SCH (09:03)
--- NOTE | 2017-04-22 09:17 | SOAPPROG ---
BRANDY Progress Note Assessment/Plan: Assessment/Plan: 72yo M s/p ex-lap for incarcerated/strangulated RIGH c necrotic cecum, proximal perforated small bowel. Now s/p re-anastomosis and closure - clinically he continues to do well tolerating regular diet, having normal bowel function without any bloody bowel movements. His hemoglobin has drifted down to 7.5 today I do not think that he is bleeding. His white count is persistently high as 17 from 18, will although his abdomen is clinically benign will obtain a CT scan today to look for any pathology. Given his excellent clinical improvement will advance him to regular diet in the meantime 04/13/17 05:14 04/16/17 09:19 04/16/17 09:24 04/16/17 09:29 04/17/17 10:27 04/19/17 08:27 04/20/17 09:58 04/21/17 10:31 04/22/17 09:16 Subjective: Looks great, feels great Objective: Vital Signs Temp Pulse Resp BP Pulse Ox 37.2 C 78 20 94/49 L 99 04/22/17 08:00 04/22/17 08:00 04/22/17 08:00 04/22/17 08:00 04/22/17 08:00 Laboratory Results 04/22/17 05:30 04/22/17 05:30 04/21/17 04/22/17 04/23/17 05:59 05:59 05:59 Intake Total 4127 4510 150 Output Total 3740 2252.5 Balance 387 2257.5 150 PT 16.7 SEC (12.0-15.0) H 04/18/17 04:25 INR 1.35 (0.83-1.16) H 04/18/17 04:25 ICD10 Worksheet Patient Problems: Problems Problem Status Onset Acute exacerbation of congestive heart failure Acute Atrial fibrillation with rapid ventricular response Acute DM type 1 (diabetes mellitus, type 1) Acute Perforated bowel Acute Renal failure Acute Altered mental status Acute Aspiration pneumonia Acute COPD (chronic obstructive pulmonary disease) Acute Lumbosacral radiculopathy at L5 Acute Narcotic dependency, continuous Acute Severe sepsis with septic shock Acute Spinal stenosis, lumbar Acute Tobacco dependence Acute
[2017-04-22] MEDS ORDERED: IOPAMIDOL (ISOVUE-300) 100 ML BTL ONE (10:27)
--- NOTE | 2017-04-22 10:32 | PCMIDPN ---
Assessment/Plan: 1. Septic shock secondary to peritonitis. Patient with history of incarcerated/ strangulated right inguinal hernia with perforated small bowel and necrotic cecum status post washout and wound VAC placement, most recent washout 04/16: White blood cell count remains elevated, which is unsettling although he is clinically quite stable. Change Unasyn back to Zosyn for now; continue Micafungin as per my prior notes, even though the patient never grew Berkley in his abdominal fluid, per se. He is headed down for repeat CT scan of his abdomen and pelvis now. Lungs may also be the source given history of aspiration event. Subjective: White blood cell count remains elevated at 17,000. Patient denies new abdominal pain, nausea or vomiting. Respiratory status stable. No diarrhea. Objective: Unasyn 3 g IV q.6 hours day 6 Micafungin 100 mg IV daily day 9 Afebrile Vital Signs Temp Pulse Resp BP Pulse Ox 37.2 C 78 20 94/49 L 99 04/22/17 08:00 04/22/17 08:00 04/22/17 08:00 04/22/17 08:00 04/22/17 08:00 Laboratory Results 04/22/17 05:30 04/22/17 05:30 04/21/17 04/22/17 04/23/17 05:59 05:59 05:59 Intake Total 4127 4510 315 Output Total 3740 2252.5 Balance 387 2257.5 315 No new microbiology data - Physical Exam General Appearance: other (Sitting in chair, making conversation with me. No complaints.) EENT: other (edentulous), No thrush Respiratory: coarse breath sounds Cardiac/Chest: regular rate, rhythm Extremities: other (Some pitting edema of his arms and legs. Small ecchymotic patch left forearm volar aspect, unchanged over the past 48 hours. Significant venous stasis changes/dry skin lower extremities.) Abdomen: other (Wound VAC in place midline. No obvious cellulitis. Horizontal incision right lower quadrant looks fine with manjit in place. No erythema. No significant tenderness to palpation of his abdomen, per se.) ICD10 Worksheet Patient Problems: Problems Problem Status Onset Acute exacerbation of congestive heart failure Acute Atrial fibrillation with rapid ventricular response Acute DM type 1 (diabetes mellitus, type 1) Acute Perforated bowel Acute Renal failure Acute Altered mental status Acute Aspiration pneumonia Acute COPD (chronic obstructive pulmonary disease) Acute Lumbosacral radiculopathy at L5 Acute Narcotic dependency, continuous Acute Severe sepsis with septic shock Acute Spinal stenosis, lumbar Acute Tobacco dependence Acute
[2017-04-22] MEDS: CHLORHEXIDINE GLUCONATE 15 ML UDL PO SCH ×2 (10:36→21:04)
--- NOTE | 2017-04-22 11:40 | HOSPPROG ---
Hospitalist Progress Note Assessment/Plan: # sepsis - off pressors - source abdomen/bacteremia # polymicrobial bacteremia d/t staph epi and bacteroides - repeat BCx pending # small bowel perforation with gross peritonitis - WBC up for 2 days - CT abd pending today - necrotic cecum in incarcerated hernia - unasyn/micafungin - fascia closed, wound vac in subcutaneous space # hypotension - mild; holding diuresis # volume overload/acute diastolic CHF - still positive 8L - will need more diuresis when pressure tolerates # bloody wound vac output - will hold heparin gtt for now # ABLA - worse today, follow closely, recheck today # LUE edema - check US # penile edema - elevate, follow # acute on chronic pain on continuous narcotics - restart high dose home PO narcotics, cont IV # a-fib s/p failed cardioversion - heparin gtt - on hold today - amiodarone - rate controlled # acute on chronic resp failure/COPD - extubated - baseline O2 2-4L # YOLANDA - resolved # TPN Subjective: s/p CT - results pending; denies worsening abd pain; bloody [place] output Objective: Vital Signs Temp Pulse Resp BP Pulse Ox 37.2 C 78 20 94/49 L 99 04/22/17 08:00 04/22/17 08:00 04/22/17 08:00 04/22/17 08:00 04/22/17 08:00 Laboratory Results 04/22/17 05:30 04/22/17 05:30 04/21/17 04/22/17 04/23/17 05:59 05:59 05:59 Intake Total 4127 4510 315 Output Total 3740 2252.5 Balance 387 2257.5 315 PT 16.7 SEC (12.0-15.0) H 04/18/17 04:25 INR 1.35 (0.83-1.16) H 04/18/17 04:25 - Physical Exam Constitutional: no apparent distress, appears nourished Cardiovascular: no murmur, rub, or gallop, irregularly irregular Respiratory: no respiratory distress, no rales or rhonchi, clear to auscultation Gastrointestinal: normoactive bowel sounds, other (midline [place]; TTP but soft; KAREN drain) ICD10 Worksheet Patient Problems: Problems Problem Status Onset Renal failure Acute Tobacco dependence Acute Narcotic dependency, continuous Acute Lumbosacral radiculopathy at L5 Acute Spinal stenosis, lumbar Acute DM type 1 (diabetes mellitus, type 1) Acute Aspiration pneumonia Acute COPD (chronic obstructive pulmonary disease) Acute Severe sepsis with septic shock Acute Altered mental status Acute Acute exacerbation of congestive heart failure Acute Atrial fibrillation with rapid ventricular response Acute Perforated bowel Acute
[2017-04-22] MEDS: PIPERACILLIN/TAZO 4.5 GM/DEX 100 ML IV SCH ×2 (12:10→17:20)
[2017-04-22] MEDS: COLLAGENASE 30 GM OINTMENT TP SCH (12:19)
--- NOTE | 2017-04-22 16:01 | ASMTCMCOM ---
CM Note CM Note Notes: Reviewed chart re: d/c poc, pt's progress. Pt septic secondary to peritonitis, WBC remains elevated. Pt has wound vac on abdomen; ID following. Discharge date remains TBD. Pt to transfer to SNF when medically stable. CM will cont to follow. Date Signed: 04/22/2017 04:01 PM Electronically Signed By:Ava Arnold RN
[2017-04-22] MEDS: TPN W/ FAMOTIDINE 1 EA BAG IV SCH (21:03)
[2017-04-22] MEDS: QUEtiapine FUMARATE 25 MG TAB PO SCH (21:04)
[2017-04-22] MEDS: NS 1,000 ML IV SCH (21:08)
[2017-04-23] MEDS: PIPERACILLIN/TAZO 4.5 GM/DEX 100 ML IV SCH ×4 (00:18→17:32)
[2017-04-23] MEDS: INSULIN REGULAR HUMAN 100 UNIT/ML SC SCH ×4 (00:19→18:42)
[2017-04-23] MEDS: ALBUTEROL 3 ML DEYVIAL IH SCH ×4 (05:54→20:04)
[2017-04-23] MEDS: ALTEPLASE 2 MG VIAL IVP PRN ×2 (06:05→06:06)
--- NOTE | 2017-04-23 09:21 | WOCRNPDOC ---
LISA Advanced Assessment Note - Skin Integrity Problem, Advanced Assess Medial Abdomen Surgical Wound/Incision Dressing Type: Black Vac Foam (x1), Wound Vac Dressing Description: Clean/Dry, Intact Exudate Amount: Minimal Exudate Characteristic(s): Sanguinous Integumentary Issue Intervention: Dressing Changed Wound Bed Color: Red Wound Bed Constitution: Granulation Tissue (100%) Wound Edges: Attached Site Odor: None Site Measurement - Head-to-Toe Length X Width X Depth (cm): 23x4.3x3 Skin Integrity Problem Comment: Wound healing extremly well. No concerns. Drape applied monty wound after skin prep. Two pieces of medium black simplace foam to wound bed. Vac restarted at -125 mm Hg cont suction without leaks. Marlys CARTER and Tessa Richard RN in room for care. Next vac change Wed 04/25.
[2017-04-23] MEDS: CHLORHEXIDINE GLUCONATE 15 ML UDL PO SCH ×2 (09:27→19:53)
[2017-04-23] MEDS: PREGABALIN 75 MG CAP PO SCH ×3 (09:27→22:29)
[2017-04-23] MEDS: AMIODARONE HCL 200 MG TAB PO SCH ×2 (09:27→22:57)
[2017-04-23] MEDS: NICOTINE 21 MG/24 HR PATCH TD SCH (09:27)
[2017-04-23] MEDS: morphINE SR 100 MG TAB PO SCH ×3 (09:27→22:57)
[2017-04-23] MEDS: MICAFUNGIN NA 100 MG in NS 100 ML IV SCH (09:59)
[2017-04-23] MEDS: COLLAGENASE 30 GM OINTMENT TP SCH (12:53)
--- NOTE | 2017-04-23 13:22 | SOAPPROG ---
SOANA Progress Note Assessment/Plan: Assessment/Plan: 72yo M s/p ex-lap for incarcerated/strangulated RIGH c necrotic cecum, proximal perforated small bowel. Now s/p re-anastomosis and closure - Reviewed CT scan with rads yesterday, there are 2 fluid collections under each diaphragm abscess vs blood, not great candidates for perc drainage. Otherwise, abdomen looked good. Given continued clinical improvement would plan for contiued abx and observation. Plan to trend the WBC and rescan later this week. If clinically decompensates, will need more aggressive treatment. 04/13/17 05:14 04/16/17 09:19 04/16/17 09:24 04/16/17 09:29 04/17/17 10:27 04/19/17 08:27 04/20/17 09:58 04/21/17 10:31 04/22/17 09:16 04/23/17 13:20 Subjective: Continues to feel well, having bowel function and tolerating a regular diet Objective: Vital Signs Temp Pulse Resp BP Pulse Ox 36.9 C 77 12 88/49 L 93 04/23/17 12:50 04/23/17 12:00 04/23/17 12:00 04/23/17 12:00 04/23/17 12:00 Laboratory Results 04/23/17 05:45 04/23/17 05:45 04/22/17 04/23/17 04/24/17 05:59 05:59 05:59 Intake Total 4510 3481 Output Total 2252.5 1170 250 Balance 2257.5 2311 -250 PT 16.7 SEC (12.0-15.0) H 04/18/17 04:25 INR 1.35 (0.83-1.16) H 04/18/17 04:25 ICD10 Worksheet Patient Problems: Problems Problem Status Onset Acute exacerbation of congestive heart failure Acute Atrial fibrillation with rapid ventricular response Acute DM type 1 (diabetes mellitus, type 1) Acute Perforated bowel Acute Renal failure Acute Altered mental status Acute Aspiration pneumonia Acute COPD (chronic obstructive pulmonary disease) Acute Lumbosacral radiculopathy at L5 Acute Narcotic dependency, continuous Acute Severe sepsis with septic shock Acute Spinal stenosis, lumbar Acute Tobacco dependence Acute
--- NOTE | 2017-04-23 15:25 | HOSPPROG ---
Hospitalist Progress Note Assessment/Plan: 72 yo M with PMH of copd, chronic resp failure pw septic shock/polymicrobial bacteremia in setting of bowel perforatoin # septic shock -now resolved and off pressors - source abdomen/bacteremia # polymicrobial bacteremia d/t staph epi and bacteroides - repeat BCx from 04/20 with ngtd; ID following, continued on zosyn/micafungin # small bowel perforation with gross peritonitis 2/2 incarcerated/strangulated necrotic cecum - s/p re-anastamosis/fascial closure and wound vac placement, repeat abd CT from 04/22 personally evaluated showing new fluid collections not amenable to perc drainage and plan to continue abx mgmt. # hypotension - mild; holding diuresis # volume overload/acute diastolic CHF - still up 7kg - will need more diuresis when pressure tolerates # bloody wound vac output - will hold heparin gtt for now # ABLA - s/p transfusion of 2Units PRBC 04/22 and stable thus far # superficial thrombus LUE: without dvt, holding heparin for now as above # penile edema - elevate, follow # acute on chronic pain on continuous narcotics - restart high dose home PO narcotics, cont IV # a-fib s/p failed cardioversion - heparin gtt - on hold today - amiodarone - rate controlled # acute on chronic resp failure/COPD - extubated - baseline O2 2-4L # YOLANDA - resolved # TPN--advanced diet and will decrease TPN # high risk, multiple active medical problems and tenuous status Patient new to my care. Old records reviewed and summarized as above. Subjective: no significant overnight events, patient states he feels a bit better today other than somnolent Objective: Vital Signs Temp Pulse Resp BP Pulse Ox 36.9 C 77 12 88/49 L 93 04/23/17 12:50 04/23/17 12:00 04/23/17 12:00 04/23/17 12:00 04/23/17 12:00 Laboratory Results 04/23/17 05:45 04/23/17 05:45 04/22/17 04/23/17 04/24/17 05:59 05:59 05:59 Intake Total 4510 3481 Output Total 2252.5 1170 550 Balance 2257.5 2311 -550 PT 16.7 SEC (12.0-15.0) H 09/27/17 04:25 INR 1.35 (0.83-1.16) H 04/18/17 04:25 awake alert chronically ill appearing anicteric op clear rrr dec bs at bilateral bases soft diffuse ttp bs present 2+ pitting edema ble warm dry well perfused oriented appropriate ICD10 Worksheet Patient Problems: Problems Problem Status Onset Renal failure Acute Tobacco dependence Acute Narcotic dependency, continuous Acute Lumbosacral radiculopathy at L5 Acute Spinal stenosis, lumbar Acute DM type 1 (diabetes mellitus, type 1) Acute Aspiration pneumonia Acute COPD (chronic obstructive pulmonary disease) Acute Severe sepsis with septic shock Acute Altered mental status Acute Acute exacerbation of congestive heart failure Acute Atrial fibrillation with rapid ventricular response Acute Perforated bowel Acute
--- NOTE | 2017-04-23 17:23 | PCMIDPN ---
Assessment/Plan: Assessment: Septic shock secondary to peritonitis after incarcerated cecum became necrotic. Patient is clearly clinically much improved. Currently on Zosyn and micafungin. CT scan from yesterday revealed multiple fluid collections around the liver and the spleen. Also 1 in the inguinal canal. These are hard to access with interventional Radiology. Await termination from surgery as to questions regarding drainage. Continued leukocytosis in the [id number] range is concerning. Plan: 1. Continue Zosyn and micafungin. 2. Follow-up clinical course. Subjective: Patient is alert and conversational. He notes no new complaint. He does state that his abdomen feels sore still. No fevers or chills. Objective: Zosyn # 1 Micafungin # 10 Vital Signs Temp Pulse Resp BP Pulse Ox 37.4 C 76 18 85/37 L 96 04/23/17 15:28 04/23/17 16:45 04/23/17 16:45 04/23/17 15:32 04/23/17 16:45 Laboratory Results 04/23/17 05:45 04/23/17 05:45 04/22/17 04/23/17 04/24/17 05:59 05:59 05:59 Intake Total 4510 3481 Output Total 2252.5 1170 725 Balance 2257.5 2311 -725 - Physical Exam General Appearance: WD/WN, alert, no apparent distress, non-toxic Respiratory: lungs clear, normal breath sounds, No respiratory distress Cardiac/Chest: regular rate, rhythm, No tachycardia Abdomen: soft, No non-tender, No guarding, No mass Skin: normal color, warm/dry, No rash Neuro/Psych: alert, normal mood/affect, oriented x 3 ICD10 Worksheet Patient Problems: Problems Problem Status Onset Acute exacerbation of congestive heart failure Acute Atrial fibrillation with rapid ventricular response Acute DM type 1 (diabetes mellitus, type 1) Acute Perforated bowel Acute Renal failure Acute Altered mental status Acute Aspiration pneumonia Acute COPD (chronic obstructive pulmonary disease) Acute Lumbosacral radiculopathy at L5 Acute Narcotic dependency, continuous Acute Severe sepsis with septic shock Acute Spinal stenosis, lumbar Acute Tobacco dependence Acute
[2017-04-23] MEDS: TPN W/ FAMOTIDINE 1 EA BAG IV SCH (21:39)
[2017-04-23] MEDS: QUEtiapine FUMARATE 25 MG TAB PO SCH (22:30)
[2017-04-24] MEDS: PIPERACILLIN/TAZO 4.5 GM/DEX 100 ML IV SCH ×5 (00:30→22:47)
[2017-04-24] MEDS: INSULIN REGULAR HUMAN 100 UNIT/ML SC SCH ×4 (00:31→17:08)
[2017-04-24 04:24] LABS: PLATELET COUNT 229 10^3/uL (150-400)
[2017-04-24] MEDS: ALBUTEROL 3 ML DEYVIAL IH SCH ×4 (06:19→21:55)
[2017-04-24] MEDS: NICOTINE 21 MG/24 HR PATCH TD SCH (10:19)
[2017-04-24] MEDS: CHLORHEXIDINE GLUCONATE 15 ML UDL PO SCH ×2 (10:19→22:33)
[2017-04-24] MEDS: morphINE SR 100 MG TAB PO SCH (10:20)
[2017-04-24] MEDS: AMIODARONE HCL 200 MG TAB PO SCH ×2 (10:20→22:33)
[2017-04-24] MEDS: PREGABALIN 75 MG CAP PO SCH ×2 (10:21→15:55)
[2017-04-24] MEDS: MICAFUNGIN NA 100 MG in NS 100 ML IV SCH (10:22)
[2017-04-24] MEDS: COLLAGENASE 30 GM OINTMENT TP SCH (10:29)
--- NOTE | 2017-04-24 10:51 | SOAPPROG ---
SOAP Progress Note Assessment/Plan: Assessment/Plan: 72yo M s/p ex-lap for incarcerated/strangulated RIGH c necrotic cecum, proximal perforated small bowel. Now s/p re-anastomosis and closure - WBC 16k today, abdomen remains soft. Discussed CT scan with IR today, going to drain monty-splenic fluid collection. NPO until drained. Will likely need TPN re-ordered as his PO intake has been marginal. Will follow up after drainage. 04/13/17 05:14 04/16/17 09:19 04/16/17 09:24 04/16/17 09:29 04/17/17 10:27 04/19/17 08:27 04/20/17 09:58 04/21/17 10:31 04/22/17 09:16 04/23/17 13:20 04/24/17 10:50 Subjective: Poor appetite, no fevers Objective: Vital Signs Temp Pulse Resp BP Pulse Ox 36.8 C 74 16 103/48 L 94 04/24/17 08:00 04/24/17 08:00 04/24/17 08:00 04/24/17 08:00 04/24/17 08:00 Laboratory Results 04/24/17 04:00 04/24/17 04:00 04/23/17 04/24/17 04/25/17 05:59 05:59 05:59 Intake Total 3481 3682 Output Total 1170 735 5 Balance 2311 2947 -5 PT 16.7 SEC (12.0-15.0) H 04/18/17 04:25 INR 1.35 (0.83-1.16) H 04/18/17 04:25 ICD10 Worksheet Patient Problems: Problems Problem Status Onset Acute exacerbation of congestive heart failure Acute Atrial fibrillation with rapid ventricular response Acute DM type 1 (diabetes mellitus, type 1) Acute Perforated bowel Acute Renal failure Acute Altered mental status Acute Aspiration pneumonia Acute COPD (chronic obstructive pulmonary disease) Acute Lumbosacral radiculopathy at L5 Acute Narcotic dependency, continuous Acute Severe sepsis with septic shock Acute Spinal stenosis, lumbar Acute Tobacco dependence Acute
--- NOTE | 2017-04-24 12:50 | HOSPPROG ---
Hospitalist Progress Note Assessment/Plan: 72 yo M with PMH of copd, chronic resp failure pw septic shock/polymicrobial bacteremia in setting of bowel perforatoin # septic shock -now resolved and off pressors - source abdomen/bacteremia # polymicrobial bacteremia d/t staph epi and bacteroides - repeat BCx from 04/20 with ngtd; ID following, continued on zosyn/micafungin # small bowel perforation with gross peritonitis 2/2 incarcerated/strangulated necrotic cecum - s/p re-anastamosis/fascial closure and wound vac placement - new fluid collections around the spleen to be drained today with IR per gen surg # hypotension - mild; holding diuresis--some of this seems to be related to pain medications in terms of associated somnolence and hypotension and will look to decrease long acting pain meds today to see if we can improve bp/ somnolence # volume overload/acute diastolic CHF - still up 7kg - will need more diuresis when pressure tolerates # bloody wound vac output - resolved # ABLA - s/p transfusion of 2Units PRBC 04/22 and stable thus far # superficial thrombus LUE: without dvt, holding AC for now given recent bleed and need for repeat procedure. Will start ppx dose. # fabricio: creatinine increased today to 1.5, suspect HD mediated given hypotension # penile edema - elevate, follow # acute on chronic pain on continuous narcotics - restarted on high dose home PO narcotics but will decrease slightly given hypotension/somnolence as above # a-fib s/p failed cardioversion, most recent ECG with sinus rhythm - amiodarone - rate controlled - holding off on AC given above # acute on chronic resp failure/COPD - extubated - baseline O2 2-4L # TPN--advanced diet but only taking minimal amounts, will continue tpn for now # high risk, multiple active medical problems and tenuous status Care plan reviewed with general surgery including plan for IR drainage. Subjective: no significant overnight events, patient states he is feeling a bit better but still somnolent Objective: Vital Signs Temp Pulse Resp BP Pulse Ox 36.4 C 63 20 94/44 L 96 04/24/17 11:22 04/24/17 12:11 04/24/17 12:11 04/24/17 11:22 04/24/17 12:11 Laboratory Results 04/24/17 04:00 04/24/17 04:00 04/23/17 04/24/17 04/25/17 05:59 05:59 05:59 Intake Total 3481 3682 Output Total 1170 735 10 Balance 2311 2947 -10 PT 16.7 SEC (12.0-15.0) H 04/18/17 04:25 INR 1.35 (0.83-1.16) H 04/18/17 04:25 awake alert chronically ill appearing anicteric op clear rrr dec bs at bilateral bases soft diffuse ttp bs present 2+ pitting edema ble warm dry well perfused oriented appropriate ICD10 Worksheet Patient Problems: Problems Problem Status Onset Acute exacerbation of congestive heart failure Acute Atrial fibrillation with rapid ventricular response Acute DM type 1 (diabetes mellitus, type 1) Acute Perforated bowel Acute Renal failure Acute Altered mental status Acute Aspiration pneumonia Acute COPD (chronic obstructive pulmonary disease) Acute Lumbosacral radiculopathy at L5 Acute Narcotic dependency, continuous Acute Severe sepsis with septic shock Acute Spinal stenosis, lumbar Acute Tobacco dependence Acute
[2017-04-24] MEDS ORDERED: morphINE SR 100 MG TAB PO SCH (12:51)
--- NOTE | 2017-04-24 14:27 | ASMTCMCOM ---
CM Note CM Note Notes: 04/24/2017 Case Management note: Faxed updates to [facility]. D/C date remains unclear, pt requiring TPN. Case Management d/c poc: to [facility] when medically stable. Case Management to follow. 04/22/2017 CM Note Reviewed chart re: d/c poc, pt's progress. Pt septic secondary to peritonitis, WBC remains elevated. Pt has wound vac on abdomen; ID following. Discharge date remains TBD. Pt to transfer to SNF when medically stable. CM will cont to follow 04/18/2017 CM Note Patient was extubated yesterday and doing well on Vapotherm. He has a wound vac and is complaining of pain. I spoke with his daughter Rosalia about likelihood of SNF upon discharge, she says patient has been to [facility] in the past and that this would be their first choice. Referral sent to [facility]. Rosalia would like to fill out MDPOA paperwork with her father when he is alert and oriented. CM or photographic reproduction technician can help with this. 04/16/2017 CM Note Discussed case in rounds, patient to go back to surgery this pm for potential wound closure, respiratory status improving. Needs undetermined at this time but anticipate patient will have SNF/Rehab needs. C/M to follow as needs arise. 04/13/2017 CM Note Pt admitted with hypotension and bowel perf/sepsis. Pt came from home where he lives alone. Went to surg earlier today for bowel perf, currently vented. Pt has dtr, Rosalia who is local and very supportive and also has sister. Spoke w/Martine [facility] from [facility] who follows [facility]. [facility] prior to admit for nursing services. Notified Andrea at [facility] of pt's admit. Too early to know dc needs but CM w/f. Date Signed: 04/24/2017 02:26 PM Electronically Signed By:Eunice Rojas RN
--- NOTE | 2017-04-24 14:27 | ASMTCMCOM ---
CM Note CM Note Notes: 04/24/2017 Case Management note: Faxed updates to [facility]. D/C date remains unclear, pt requiring TPN. Case Management d/c poc: to [facility] when medically stable. Case Management to follow. 04/22/2017 CM Note Reviewed chart re: d/c poc, pt's progress. Pt septic secondary to peritonitis, WBC remains elevated. Pt has wound vac on abdomen; ID following. Discharge date remains TBD. Pt to transfer to SNF when medically stable. CM will cont to follow 04/18/2017 CM Note Patient was extubated yesterday and doing well on Vapotherm. He has a wound vac and is complaining of pain. I spoke with his daughter Rosalia about likelihood of SNF upon discharge, she says patient has been to [facility] in the past and that this would be their first choice. Referral sent to [facility]. Rosalia would like to fill out MDPOA paperwork with her father when he is alert and oriented. CM or jd edwards can help with this. 04/16/2017 CM Note Discussed case in rounds, patient to go back to surgery this pm for potential wound closure, respiratory status improving. Needs undetermined at this time but anticipate patient will have SNF/Rehab needs. C/M to follow as needs arise. 04/13/2017 CM Note Pt admitted with hypotension and bowel perf/sepsis. Pt came from home where he lives alone. Went to surg earlier today for bowel perf, currently vented. Pt has dtr, Rosalia who is local and very supportive and also has sister. Spoke w/Martine [facility] from [facility] who follows pt. Pt [facility] prior to admit for nursing services. Notified Andrea at [facility] of pt's admit. Too early to know dc needs but CM w/f. Date Signed: 04/24/2017 02:26 PM Electronically Signed By:Eunice Rojas RN
--- NOTE | 2017-04-24 15:26 | POSTOPPROG ---
Post Op Note Date of Operation: 04/24/17 Surgeon: Noe Pelayo Pre-op Diagnosis: Peritonitis Post-op Diagnosis: same Indication: possible abscess Procedure: CT guided drainage of left subphrenic abscess Findings: 30 ml mildly turbid serosanguinous fluid Inf/Abcess present in the surg proc area at time of surgery?: Yes Depth: Organ Space (perisplenic subphrenic) EBL: Minimal Complications: 0 Drains: Other (10 F pigtail.)
--- NOTE | 2017-04-24 15:36 | PCMIDPN ---
Assessment/Plan: Assessment/Plan: 1. Sepsis secondary to necrotic cecum/peritonitis: -Polymicrobial bacteremia with staph epi, bacteroides noted -Abd cx with Klebsiella. -Currently on zosyn and micafungin -s/p washout out on 04/16/17 -New perisplenic collection s/p KAREN drain. Care coordinated with Dr. Pelayo earlier today to obtain bacterial /fungal cultures.Orders placed - currently on high dose zosyn. If new cultures do not yield growth of Pseudomonas then will adjust antibiotics further. Meds zosyn 4.5gm q6- micafungin 100mg daily Subjective: afebrile. c/o abd soreness. denies shortness of breath. does have cough. Objective: Vital Signs Temp Pulse Resp BP Pulse Ox 36.4 C 63 20 94/44 L 96 04/24/17 11:22 04/24/17 12:11 04/24/17 12:11 04/24/17 11:22 04/24/17 12:11 Laboratory Results 04/24/17 04:00 04/24/17 04:00 04/23/17 04/24/17 04/25/17 05:59 05:59 05:59 Intake Total 3481 3682 Output Total 1170 735 310 Balance 2311 2947 -310 - Physical Exam General Appearance: alert, no apparent distress Respiratory: lungs clear (anterorly) Cardiac/Chest: regular rate, rhythm Extremities: No swelling Abdomen: normal bowel sounds, soft, other (new KAREN drain in left abdomen. serosanguinous. right prevous KAREN drain noted.), No distended Skin: other (venous stasis changes to b/l LE) ICD10 Worksheet Patient Problems: Problems Problem Status Onset Acute exacerbation of congestive heart failure Acute Atrial fibrillation with rapid ventricular response Acute DM type 1 (diabetes mellitus, type 1) Acute Perforated bowel Acute Renal failure Acute Altered mental status Acute Aspiration pneumonia Acute COPD (chronic obstructive pulmonary disease) Acute Lumbosacral radiculopathy at L5 Acute Narcotic dependency, continuous Acute Severe sepsis with septic shock Acute Spinal stenosis, lumbar Acute Tobacco dependence Acute
[2017-04-24] MEDS: morphINE SR 60 MG TAB PO SCH ×2 (15:53→15:55)
[2017-04-24] MEDS: QUEtiapine FUMARATE 25 MG TAB PO SCH (22:33)
[2017-04-24] MEDS: TPN W/ FAMOTIDINE 1 EA BAG IV SCH (22:33)
[2017-04-25] MEDS: INSULIN REGULAR HUMAN 100 UNIT/ML SC SCH ×4 (00:02→18:36)
[2017-04-25] MEDS: oxyCODONE IR 15 MG TAB PO PRN (04:59)
[2017-04-25] MEDS: PIPERACILLIN/TAZO 4.5 GM/DEX 100 ML IV SCH ×4 (05:34→23:07)
[2017-04-25 05:55] LABS: PLATELET COUNT 315 10^3/uL (150-400)
[2017-04-25] MEDS: ALBUTEROL 3 ML DEYVIAL IH SCH ×4 (06:06→20:55)
[2017-04-25] MEDS: ONDANSETRON 4 MG/2 ML VIAL IVP PRN (08:52)
[2017-04-25] MEDS: MICAFUNGIN NA 100 MG in NS 100 ML IV SCH (09:02)
[2017-04-25] MEDS: NICOTINE 21 MG/24 HR PATCH TD SCH (09:05)
[2017-04-25] MEDS: morphINE SR 60 MG TAB PO SCH (09:07)
[2017-04-25] MEDS: PREGABALIN 75 MG CAP PO SCH ×3 (09:07→23:09)
[2017-04-25] MEDS: AMIODARONE HCL 200 MG TAB PO SCH ×2 (09:07→23:08)
[2017-04-25] MEDS: CHLORHEXIDINE GLUCONATE 15 ML UDL PO SCH ×2 (09:11→23:08)
[2017-04-25] MEDS: COLLAGENASE 30 GM OINTMENT TP SCH (09:11)
--- NOTE | 2017-04-25 11:08 | PCMIDPN ---
Assessment/Plan: Assessment/Plan: * Peritonitis associated with necrotic cecum: Patient underwent percutaneous drainage of subphrenic /perisplenic fluid collection yesterday noting turbid fluid. Gram stain is negative with culture currently pending. Will continue piperacillin/tazobactam and micafungin while cultures are pending. Follow white blood cell count post drainage. * Acute renal insufficiency: Creatinine increased to 1.8 today. Creatinine clearance calculates at approximately 48. May be related to recent receipt of IV contrast for CT scan. Acute interstitial nephritis from use of piperacillin /tazobactam also of consideration. Will check urine for eosinophils. Also had hypotension with contribution from ATN also possible. Continue to follow creatinine with time. If continues to increase, will need to decrease piperacillin/tazobactam dose. 04/25/17 11:01 04/25/17 11:12 04/25/17 11:14 Subjective: Patient without specific complaints. Patient had percutaneous drainage of subphrenic/perisplenic fluid collection yesterday. Objective: Vital Signs Temp Pulse Resp BP Pulse Ox 36.3 C 78 18 112/78 95 04/25/17 07:10 04/25/17 07:10 04/25/17 07:10 04/25/17 07:10 04/25/17 07:10 Microbiology 04/24/17 14:50 Gram Stain - Final Other - Other Laboratory Results 04/25/17 05:30 04/25/17 05:30 04/24/17 04/25/17 04/26/17 05:59 05:59 05:59 Intake Total 3682 2264 Output Total 735 801 335 Balance 2947 1463 -335 Zosyn # 3 Micafungin # 12 Antibiotics # 12 Fluid collection with 1+ white blood cells, Gram stain negative, cultures pending Fungal culture pending - Physical Exam General Appearance: alert, no apparent distress EENT: No scleral icterus, No thrush Respiratory: lungs clear ( anterolaterally) Cardiac/Chest: regular rate, rhythm Extremities: other ( anasarca) Abdomen: non-tender, other ( wound VAC in place with mild surrounding erythema; manjit present in lower abdomen without surrounding erythema or drainage; KAREN with serosanguineous output), No distended - Line/s RUE PICC Lines: No drainage, No erythema ICD10 Worksheet Patient Problems: Problems Problem Status Onset Acute exacerbation of congestive heart failure Acute Atrial fibrillation with rapid ventricular response Acute DM type 1 (diabetes mellitus, type 1) Acute Perforated bowel Acute Renal failure Acute Altered mental status Acute Aspiration pneumonia Acute COPD (chronic obstructive pulmonary disease) Acute Lumbosacral radiculopathy at L5 Acute Narcotic dependency, continuous Acute Severe sepsis with septic shock Acute Spinal stenosis, lumbar Acute Tobacco dependence Acute
--- NOTE | 2017-04-25 14:36 | HOSPPROG ---
Hospitalist Progress Note Assessment/Plan: 72 yo M with PMH of copd, chronic resp failure pw septic shock/polymicrobial bacteremia in setting of bowel perforation # septic shock -now resolved and off pressors, wbc still elevated but essentially flat - source abdomen/bacteremia # polymicrobial bacteremia d/t staph epi and bacteroides - repeat BCx from 04/20 with ngtd; ID following, continued on zosyn/micafungin # small bowel perforation with gross peritonitis 2/2 incarcerated/strangulated necrotic cecum - s/p re-anastamosis/fascial closure and wound vac placement - new fluid collections around the spleen s/p drainage and drain placement yesterday with cultures pending # fabricio: continues to increase for the last 2 days, now up to 1.8, UOP adequate though weight continues to increase. Has been persistently hypotensive as next and suspect this is largely HD mediated. UA, urine Na, creat, urea pending. Will continue to hold lasix and trial albumin. Could be related to abx or DEBBY given recent contrast load. # hypotension - continued and seems to be affected significantly by pain medications--query if pain meds are accumulating, particularly morphine which has been leading to worsening hypotension and somnolence. Will decrease morphine further with short acting oxy/dilaudid for breakthrough pain as needed. Albumin as above. # volume overload/acute diastolic CHF - had been up 7kg and per records up another 8kg overnight (? error), does appear volume overloaded though query intravascularly dry given fabricio as above. Holding diuresis for hypotension and FABRICIO. # bloody wound vac output - resolved # ABLA - s/p transfusion of 2Units PRBC 04/22 and stable thus far # superficial thrombus LUE: without dvt, holding AC for now given recent bleed and ongoing oozing and need for repeat procedure. Warm compresses. # penile edema - elevate, follow # acute on chronic pain on continuous narcotics - restarted on high dose home PO narcotics with associated worsening somnolence and hypotension # a-fib s/p failed cardioversion, most recent ECG with sinus rhythm - amiodarone - rate controlled # acute on chronic resp failure/COPD - extubated - baseline O2 2-4L # TPN--advanced diet but only taking minimal amounts, will continue tpn for now # ppx: started on HSC # high risk, multiple active medical problems and tenuous status Subjective: s/p IR drainage of persplenic fluid collection, somnolent this am after getting meds Objective: Vital Signs Temp Pulse Resp BP Pulse Ox 36.4 C 89 18 101/54 L 98 04/25/17 12:18 04/25/17 12:18 04/25/17 12:18 04/25/17 12:18 04/25/17 12:18 Microbiology 04/24/17 14:50 Gram Stain - Final Other - Other 04/20/17 12:36 Blood Culture - Final Blood 04/20/17 12:36 Blood Culture - Final Blood Laboratory Results 04/25/17 05:30 04/25/17 05:30 04/24/17 04/25/17 04/26/17 05:59 05:59 05:59 Intake Total 3682 2264 Output Total 735 801 400 Balance 2947 1463 -400 PT 16.7 SEC (12.0-15.0) H 04/18/17 04:25 INR 1.35 (0.83-1.16) H 04/18/17 04:25 somnolent arousable chronically ill appearing anicteric op clear rrr dec bs at bilateral bases soft diffuse ttp bs present 2+ pitting edema ble warm dry well perfused oriented appropriate ICD10 Worksheet Patient Problems: Problems Problem Status Onset Acute exacerbation of congestive heart failure Acute Atrial fibrillation with rapid ventricular response Acute DM type 1 (diabetes mellitus, type 1) Acute Perforated bowel Acute Renal failure Acute Altered mental status Acute Aspiration pneumonia Acute COPD (chronic obstructive pulmonary disease) Acute Lumbosacral radiculopathy at L5 Acute Narcotic dependency, continuous Acute Severe sepsis with septic shock Acute Spinal stenosis, lumbar Acute Tobacco dependence Acute
[2017-04-25] MEDS ORDERED: morphINE SR 60 MG TAB PO SCH (15:14)
[2017-04-25] MEDS ORDERED: oxyCODONE IR 15 MG TAB PO PRN (15:17)
[2017-04-25] MEDS: HEPARIN 5,000 UNIT/0.5 ML SYR SC SCH ×2 (16:19→23:07)
[2017-04-25] MEDS: ALBUMIN 25% 100 ML IV SCH ×3 (16:19→23:07)
[2017-04-25] MEDS: morphINE SR 30 MG TAB PO SCH ×2 (16:19→23:09)
--- NOTE | 2017-04-25 16:45 | WOCRNPDOC ---
WOCRN Advanced Assessment Note - Skin Integrity Problem, Advanced Assess Medial Back Pressure Injury Dressing Type: Allevyn Life, Telfa Dressing Description: Clean/Dry, Intact Integumentary Issue Intervention: Visualized Under Dressing Monty Wound Tissue: Blanching, Erythema, Macerated Wound Bed Color: [place], Yellow Wound Bed Constitution: Smooth Tissue (60%), Adhered Slough (40%) Pressure Injury Stage: Stage 3 Pressure Injury Present on Admit: Yes Skin Integrity Problem Comment: Dressing change performed by director trading just prior to my visit with this patient, therefore did not clean wound. Plan is to continue using santyl with daily dressing changes for further debridement of wound. Wound care will round again on Sunday, 04/27. Coccyx Pressure Injury Dressing Type: Open to Air Monty Wound Tissue: Blanching Pressure Injury Stage: Stage 2 Pressure Injury Present on Admit: Yes Skin Integrity Problem Comment: Calazime recently applied to wound and monty wound skin. Patient more able now to express need to void, so minimal moisture noted to area. Continue to offload area. Medial Abdomen Surgical Wound/Incision Dressing Type: Wound Vac Dressing Description: Clean/Dry, Intact Exudate Amount: Scant Exudate Color: Reddish/Yellow Exudate Characteristic(s): Serosanguinous Integumentary Issue Intervention: Dressing Changed Wound Bed Color: [place] Wound Bed Constitution: Granulation Tissue (100%) Wound Edges: Attached, Well Defined Skin Integrity Problem Comment: Wound cleaned with NS and gauze. Monty wound tissue prepped with skin prep and draped. 2 pieces simplace foam used to fill wound bed, including one piece for the trac pad. Suction achieved at -125mmHg. Elzbieta MAHER in room and assisting. Wound care will round again on Sunday.
[2017-04-25] MEDS ORDERED: MAGNESIUM HYDROXIDE 30 ML UDCUP PO PRN (17:28)
[2017-04-25] MEDS ORDERED: BISACODYL 10 MG SUPP PR PRN (17:28)
[2017-04-25] MEDS ORDERED: LACTULOSE 20 GM/30 ML UDCUP PO PRN (17:28)
--- NOTE | 2017-04-25 18:35 | SOAPPROG ---
SOAP Progress Note Assessment/Plan: Assessment: 72 year old with multiple co-morbidities s/p colonic resection with anastomosis and wash out. s/p drainage of subphrenic abscess Still needs TPN as not consuming much po Bowel protocol S: Sleeping comfortably O: Abdomen soft. Wound vac to suction. KAREN to suction Plan: 04/25/17 18:33 Objective: Vital Signs Temp Pulse Resp BP Pulse Ox 36.2 C 88 18 96/49 L 95 04/25/17 15:34 04/25/17 15:34 04/25/17 15:34 04/25/17 15:34 04/25/17 15:34 Microbiology 04/24/17 14:50 Gram Stain - Final Other - Other 04/20/17 12:36 Blood Culture - Final Blood 04/20/17 12:36 Blood Culture - Final Blood Laboratory Results 04/25/17 05:30 04/25/17 05:30 04/24/17 04/25/17 04/26/17 05:59 05:59 05:59 Intake Total 3682 2264 250 Output Total 735 801 410 Balance 2947 1463 -160 PT 16.7 SEC (12.0-15.0) H 04/18/17 04:25 INR 1.35 (0.83-1.16) H 04/18/17 04:25 ICD10 Worksheet Patient Problems: Problems Problem Status Onset Acute exacerbation of congestive heart failure Acute Atrial fibrillation with rapid ventricular response Acute DM type 1 (diabetes mellitus, type 1) Acute Perforated bowel Acute Renal failure Acute Altered mental status Acute Aspiration pneumonia Acute COPD (chronic obstructive pulmonary disease) Acute Lumbosacral radiculopathy at L5 Acute Narcotic dependency, continuous Acute Severe sepsis with septic shock Acute Spinal stenosis, lumbar Acute Tobacco dependence Acute
[2017-04-25] MEDS: TPN W/ FAMOTIDINE 1 EA BAG IV SCH (22:06)
[2017-04-25] MEDS: QUEtiapine FUMARATE 25 MG TAB PO SCH (23:09)
[2017-04-25] MEDS: SENNOSIDES/DOCUSATE SODIUM TAB PO SCH (23:10)
[2017-04-26] MEDS: INSULIN REGULAR HUMAN 100 UNIT/ML SC SCH ×4 (00:12→18:12)
[2017-04-26] MEDS: ALBUMIN 25% 100 ML IV SCH ×2 (05:17→15:12)
[2017-04-26] MEDS: PIPERACILLIN/TAZO 4.5 GM/DEX 100 ML IV SCH (05:18)
[2017-04-26] MEDS: HEPARIN 5,000 UNIT/0.5 ML SYR SC SCH (05:18)
[2017-04-26] MEDS: ALBUTEROL 3 ML DEYVIAL IH SCH ×3 (05:40→16:32)
[2017-04-26 05:50] LABS: PLATELET COUNT 269 10^3/uL (150-400)
[2017-04-26] MEDS: morphINE SR 30 MG TAB PO SCH (07:16)
--- NOTE | 2017-04-26 07:17 | SOAPPROG ---
SOAP Progress Note Assessment/Plan: Assessment/Plan: 72yo M s/p ex-lap for incarcerated/strangulated RIGH c necrotic cecum, proximal perforated small bowel. Now s/p re-anastomosis and closure - Patient looks markedly worse this AM. His abdomen is distended and his WBC is 25. Dont think a non-con CT scan would be of benefit. Planning takeback for washout today. NPO. Getting blood now 04/13/17 05:14 04/16/17 09:19 04/16/17 09:24 04/16/17 09:29 04/17/17 10:27 04/19/17 08:27 04/20/17 09:58 04/21/17 10:31 04/22/17 09:16 04/23/17 13:20 04/24/17 10:50 04/26/17 07:16 Objective: Vital Signs Temp Pulse Resp BP Pulse Ox 36.7 C 94 20 94/51 L 97 04/26/17 04:00 04/26/17 05:42 04/26/17 05:42 04/26/17 04:00 04/26/17 05:42 Microbiology 04/24/17 14:50 Gram Stain - Final Other - Other 04/20/17 12:36 Blood Culture - Final Blood 04/20/17 12:36 Blood Culture - Final Blood Laboratory Results 04/26/17 05:15 04/26/17 05:15 04/25/17 04/26/17 04/27/17 05:59 05:59 05:59 Intake Total 2264 2909 Output Total 801 440 Balance 1463 2469 PT 16.7 SEC (12.0-15.0) H 04/18/17 04:25 INR 1.35 (0.83-1.16) H 04/18/17 04:25 ICD10 Worksheet Patient Problems: Problems Problem Status Onset Acute exacerbation of congestive heart failure Acute Atrial fibrillation with rapid ventricular response Acute DM type 1 (diabetes mellitus, type 1) Acute Perforated bowel Acute Renal failure Acute Altered mental status Acute Aspiration pneumonia Acute COPD (chronic obstructive pulmonary disease) Acute Lumbosacral radiculopathy at L5 Acute Narcotic dependency, continuous Acute Severe sepsis with septic shock Acute Spinal stenosis, lumbar Acute Tobacco dependence Acute
[2017-04-26] MEDS: MICAFUNGIN NA 100 MG in NS 100 ML IV SCH (09:01)
[2017-04-26] MEDS: NICOTINE 21 MG/24 HR PATCH TD SCH (09:03)
[2017-04-26 09:07] LABS: PLATELET COUNT 253 10^3/uL (150-400)
[2017-04-26] MEDS ORDERED: BUPIVACAINE 0.25% 30 ML SDV ONE (11:11)
--- NOTE | 2017-04-26 11:32 | PDANEPAE ---
ANE History of Present Illness Patient presents for Ex Lap ANE Past Medical History - Cardiovascular History Hx Hypertension: Yes Hx Arrhythmias: No Hx Chest Pain: No Hx Coronary Artery / Peripheral Vascular Disease: Yes Hx CHF / Valvular Disease: Yes Hx Palpitations: No Cardiovascular History Comment: CAD W/STENT 2005. CHF (R/L HEART FAILURE). HTN. HYPERLIPIDEMIA - Pulmonary History Hx COPD: Yes Hx Asthma/Reactive Airway Disease: No Hx Recent Upper Respiratory Infection: No Hx Oxygen in Use at Home: Yes O2 in Use at Home (L/minute): 2 Hx Sleep Apnea: No Pulmonary History Comment: COPD. NOCTURNAL HYPOXIA, 4L O2 AT HS, RA DURING DAY - Neurologic History Hx Cerebrovascular Accident: No Hx Seizures: No Hx Dementia: No Neurologic History Comment: DIABETIC NEUROPATHY. GAIT INSTABILITY X 3 MONTHS. LUMBAR BACK PAIN - Endocrine History Hx Diabetes: Yes Endocrine History Comment: HYPERPARATHYROIDISM. NIDDM. NO INSULIN OR ORAL ANTIHYPERGLYCEMICS, MANAGES WITH DIET AND EXERCISE. - Renal History Hx Renal Disorders: No - Liver History Hx Hepatic Disorders: No - Neurological & Psychiatric Hx Hx Neurological and Psychiatric Disorders: Yes Neurological / Psychiatric History Comment: DEPRESSION - Cancer History Hx Cancer: Yes Cancer History Comment: PROSTATE CA 2002 - Congenital Disorder History Hx Congenital Disorders: No - GI History Hx Gastrointestinal Disorders: Yes Gastrointestinal History Comment: OPIOID INDUCED CONSTIPATION. - Other Health History Other Health History: CHRONIC OPIOID USE FOR BACK PAIN, JOINT PAIN. INSOMNIA. VITAMIN D DEFICIENCY - Chronic Pain History Chronic Pain: Yes - Surgical History Prior Surgeries: RETINAL DETACTCHMENT X3, BILAT ROTATOR CUFF REPAIR, BILATERAL FOOT SURGERIES WITH HARDWARE IN TOES, RAD PROSTATECTOMY 2001. ANE Review of Systems Review of Systems: ANE Patient History - Allergies Allergies/Adverse Reactions: No Known Allergies Allergy (Unverified 12/26/10 10:34) - Home Medications Home medications: home medication list seen and reviewed Home Medications: Aspirin EC [Aspirin EC 81 mg (*)] 81 mg PO DAILY 06/06/16 [Last Taken 09/16/16 08:00] Mirtazapine 15 mg PO HS 09/16/16 [Last Taken 09/15/16 20:00] Pregabalin [Lyrica 75mg (*)] 75 mg PO TID 09/16/16 [Last Taken 09/14/16] Aclidinium [place] [Tudorza Pressair] 1 puffs IH Q12 04/12/17 [Last Taken Unknown] Olmesartan Medoxomil [Olmesartan Medoxomil] 5 mg PO DAILY 04/12/17 [Last Taken Unknown] Quetiapine Fumarate [Quetiapine Fumarate] 25 mg PO HS 04/12/17 [Last Taken Unknown] morphINE SR [Ms Contin/Oramorph 100 mg (*)] 100 mg PO TID 04/12/17 [Last Taken Unknown] oxyCODONE IR [Oxycodone Ir (*)] 30 mg PO Q4 PRN 04/12/17 [Last Taken Unknown] - NPO status NPO Status: no food or drink >8 hours NPO Since - Liquids (Date): 04/25/17 NPO Since - Solids (Date): 04/25/17 - Anes Hx Anes Hx: no prior problems - Smoking Hx Smoking Status: Current every day smoker - Family Anes Hx Family Hx Anesthesia Complications: NEG ANE Labs/Vital Signs - Labs Result Diagrams: 04/26/17 09:00 04/26/17 05:15 - Vital Signs Blood Pressure: 90/40 Heart Rate: 92 Respiratory Rate: 16 O2 Sat (%): 88 Height: 177.8 cm Weight: 99 kg ANE Physical Exam - Airway Mallampati Score: Unable to assesss Mouth exam: poor dentition - Pulmonary Pulmonary: inspiratory crackles - Cardiovascular Cardiovascular: regular rate and rhythym - ASA Status ASA Status: IV ANE Anesthesia Plan Anesthesia Plan: general endotracheal anesthesia (RBA discussed with daughter whom consented for procedure)
[2017-04-26] MEDS ORDERED: fentaNYL 100 MCG/2 ML INJ ONE (11:34)
[2017-04-26] MEDS: PREGABALIN 75 MG CAP PO SCH ×3 (11:41→22:23)
[2017-04-26] MEDS: SENNOSIDES/DOCUSATE SODIUM TAB PO SCH ×2 (11:41→22:23)
[2017-04-26] MEDS: CHLORHEXIDINE GLUCONATE 15 ML UDL PO SCH ×2 (11:41→22:18)
[2017-04-26] MEDS: AMIODARONE HCL 200 MG TAB PO SCH ×2 (11:41→22:23)
[2017-04-26] MEDS: PIPERACILLIN/TAZO 3.375 GM/DEX 50 ML IV SCH ×2 (12:35→17:48)
[2017-04-26] MEDS ORDERED: KETAMINE 100 MG/10 ML SYR ONE (12:44)
[2017-04-26] MEDS ORDERED: epHEDrine SULFATE 10 MG/ML SYR ONE (12:44)
[2017-04-26] MEDS ORDERED: PHENYLEPHRINE HCL 100 MCG/ML SYR ONE ×2 (12:44→12:45)
[2017-04-26] MEDS ORDERED: EPINEPHrine 1 MG/10 ML SYR IVP ONE (12:44)
[2017-04-26] MEDS ORDERED: VASOPRESSIN 20 UNIT/ML VIAL ONE (12:57)
[2017-04-26] MEDS ORDERED: PROPOFOL/EMULSION 500 MG/50 ML BOTTLE IV ONE (13:38)
--- NOTE | 2017-04-26 13:55 | HOSPPROG ---
Hospitalist Progress Note Assessment/Plan: 72 yo M with PMH of copd, chronic resp failure pw septic shock/polymicrobial bacteremia in setting of bowel perforation # septic shock -now resolved and off pressors, wbc still elevated but essentially flat - source abdomen/bacteremia # acute blood loss anemia: has had oozing and slow blood loss requiring 2 units prbc previously, but more acute drop now overnight--taken for emergent ex lap on 04/26 but no source of bleeding or abscess found. Transfusing, following serial h/h, dc'ed ppx hsc. # polymicrobial bacteremia d/t staph epi and bacteroides - repeat BCx from 04/20 with ngtd; ID following, continued on zosyn/micafungin # small bowel perforation with gross peritonitis 2/2 incarcerated/strangulated necrotic cecum - s/p re-anastamosis/fascial closure and wound vac placement and now repeat ex lap on 04/26--abdomen left open for now - new fluid collections around the spleen s/p drainage and drain placement yesterday with cultures pending, on ex lap no new abscess found # yolanda: continues to increase for the last 3 days, now up to 2.1. Now with ferguson in place. Has been persistently hypotensive as next and suspect this is largely HD mediated. FENA 0.35 c/w pre renal etiology. Will continue to hold lasix. Suspect HD mediated and related to hypotension, acute blood loss. Now with open abdomen at risk for worsening insensible losses. # hypotension - continued and seems to be affected significantly by pain medications--query if pain meds are accumulating, particularly morphine which has been leading to worsening hypotension and somnolence. Holding morphine and monitoring, headed to ICU as will likely need pressor support. # volume overload/acute diastolic CHF - had been up 7kg and per records up another 8kg overnight (? error), does appear volume overloaded though query intravascularly dry given yolanda as above. Holding diuresis for hypotension and YOLANDA. # bloody wound vac output - resolved # ABLA - s/p transfusion of 2Units PRBC 04/22 and stable thus far # superficial thrombus LUE: without dvt, holding AC for now given recent bleed and ongoing oozing and need for repeat procedure. Warm compresses. # penile edema - elevate, follow # acute on chronic pain on continuous narcotics - restarted on high dose home PO narcotics with associated worsening somnolence and hypotension # a-fib s/p failed cardioversion, most recent ECG with sinus rhythm - amiodarone - rate controlled # acute on chronic resp failure/COPD -reintubated now post operatively - baseline O2 2-4L # TPN--advanced diet but only taking minimal amounts, will continue tpn for now # ppx: started on HSC yesterday, given recurrent bleed stopped # high risk, multiple active medical problems and tenuous status, moved back to ICU Subjective: overnight patient more hypotensive and less arousable, h/h dropped significantly, taken to OR, patient himself prior to surgery had no significant complaints Objective: Vital Signs Temp Pulse Resp BP Pulse Ox 36.6 C 92 16 90/40 L 88 L 04/26/17 09:45 04/26/17 11:32 04/26/17 11:32 04/26/17 11:32 04/26/17 11:32 Microbiology 04/24/17 14:50 Gram Stain - Final Other - Other 04/20/17 12:36 Blood Culture - Final Blood 04/20/17 12:36 Blood Culture - Final Blood Laboratory Results 04/26/17 09:00 04/26/17 05:15 04/25/17 04/26/17 04/27/17 05:59 05:59 05:59 Intake Total 2264 2909 Output Total 801 440 Balance 1463 2469 PT 16.7 SEC (12.0-15.0) H 04/18/17 04:25 INR 1.35 (0.83-1.16) H 04/18/17 04:25 somnolent arousable chronically ill appearing anicteric op clear rrr dec bs at bilateral bases soft diffuse ttp bs present 2+ pitting edema ble warm dry well perfused oriented appropriate ICD10 Worksheet Patient Problems: Problems Problem Status Onset Acute exacerbation of congestive heart failure Acute Atrial fibrillation with rapid ventricular response Acute DM type 1 (diabetes mellitus, type 1) Acute Perforated bowel Acute Renal failure Acute Altered mental status Acute Aspiration pneumonia Acute COPD (chronic obstructive pulmonary disease) Acute Lumbosacral radiculopathy at L5 Acute Narcotic dependency, continuous Acute Severe sepsis with septic shock Acute Spinal stenosis, lumbar Acute Tobacco dependence Acute
[2017-04-26] MEDS ORDERED: ALBUMIN 5% 500 ML BOTTLE IV ONE ×2 (14:29→18:51)
[2017-04-26] MEDS ORDERED: HYDROCORTISONE 100 MG/2 ML VIAL IVP PRN (14:30)
[2017-04-26] MEDS ORDERED: NOREPINEPHRINE/NS 500 ML IV SCH (14:30)
[2017-04-26] MEDS ORDERED: VASOPRESSIN/DEXTROSE 250 ML IV SCH (14:30)
[2017-04-26] MEDS: fentaNYL/NACL 100 ML IV SCH (14:38)
[2017-04-26] MEDS: PROPOFOL/EMULSION 100 ML IV SCH (14:39)
--- NOTE | 2017-04-26 15:00 | ASMTCMCOM ---
CM Note CM Note Notes: CM spoke w/ Tricia RN regarding d/c POC. Pt's H&H is low and pt is having surgery this AM. TERA Farley from Dr. Glez' office called and checked in today. CM provided updates. RN is requesting MD put in an order for pallative. TERA to follow. Date Signed: 04/26/2017 02:59 PM Electronically Signed By:LISS Strauss
[2017-04-26] MEDS: COLLAGENASE 30 GM OINTMENT TP SCH (15:12)
[2017-04-26] MEDS ORDERED: SODIUM BICARBONATE 100 MEQ in D5W 1,000 ML IV SCH (15:30)
[2017-04-26] MEDS ORDERED: FUROSEMIDE 40 MG/4 ML VIAL IVP ONE ×2 (16:17→16:45)
[2017-04-26] MEDS ORDERED: FUROSEMIDE 20 MG/2 ML VIAL ONE (16:25)
--- NOTE | 2017-04-26 16:51 | GCON ---
[f rep st] CONSULTATION TELEVISION CAMERA OPERATOR CONSULTATION REASON FOR ADMISSION: To the intensive care unit, possible sepsis, respiratory failure, shock. HISTORY OF PRESENT ILLNESS: The patient is a 72-year-old white male with extensive past medical hist ory, including chronic obstructive pulmonary disease, hypertension, chronic low back pain, previous b ack surgeries, depression, chronic pain, prostate cancer, hyperlipidemia. He was admitted on 04/12 i nitially to the intensive care unit for respiratory failure, chronic obstructive pulmonary disease, a nd sepsis. He survived this, was subsequently transferred to the floor. He underwent an exploratory laparotomy for incarcerated strangulated right inguinal hernia. Today, he was found to be anemic wi th a distended abdomen. He was taken back to the operating room by Dr. Avendaño for extensive lysi s of adhesions and exploratory laparotomy. Postoperatively, he was sent to the intensive care unit f or respiratory failure and shock. Currently, he is obtunded, on mechanical ventilation. All history is gleaned from the medical record. PAST MEDICAL HISTORY: As above. ALLERGIES: No known allergies to medication. PAST SURGICAL HISTORY: He had multiple back surgeries, lumbar spine injections, retinal detachment r epair. SOCIAL HISTORY: He is a 7-bndp-m-day smoker for over 50 years. No significant alcohol use. He is d ivorced, has good family support. He is full COR. PHYSICAL EXAMINATION: VITAL SIGNS: Blood pressure is 124/55, pulse 78, respirations 20, temperature 36.2, oxygen saturation 100% on mechanical ventilation. GENERAL: He is a moderately overweight, 72 -year-old white male, who is obtunded and on mechanical ventilation: HEENT: Eyes are PERRLA, EOMI. Throat: Endotracheal tube is in good position. NECK: Supple with no cervical adenopathy. HEART: Regular rate and rhythm with a 2/6 systolic murmur at left sternal border without radiation. LUNGS: Show diminished breath sounds. A few bibasilar crackles, but no wheeze. ABDOMEN: Distended. [place] el sounds are diminished. EXTREMITIES: Show trace lower extremity edema. LABORATORY DATA: White count is 26.35, hemoglobin of 5.2, hematocrit 16, platelet count 253. Arteri al blood gas, pH 7.16 pCO2 of 51, pO2 of 101, bicarb 19, oxygen saturation is 97%. This is on an IMV of 14, tidal volume of 500 plus 8 of pressure support plus 5 of PEEP. Sodium is 137, potassium 4.4, chloride 103, CO2 is 22, BUN 71, creatinine 2.1. Glucose is 125. IMPRESSION: 1. Acute respiratory failure secondary to sepsis. 2. Sepsis. While abdomen is most likely source, must into consideration others. 3. Severe anemia. 4. Metabolic and respiratory acidosis. 5. Acute renal failure. This would likely be prerenal. 6. History of multiple back surgeries. 7. Chronic obstructive pulmonary disease. 8. Chronic pain. 9. History of depression. RECOMMENDATIONS: 1. Will continue mechanical ventilation. 2. Aggressive IV hydration. 3. Pressors. 4. IV antibiotics, will discuss with Infectious Disease. 5. Sepsis protocol. 6. Close cardiovascular monitoring. 7. DVT and PE prophylaxis. 8. Stress ulcer prophylaxis. /[id number]/MODL
--- NOTE | 2017-04-26 17:17 | POSTOPPROG ---
Post Op Note Date of Operation: 04/26/17 Surgeon: Venkatesh Avendaño Fishing Line Winding Machine Operator: MD Jesus, Alycia PAC Anesthesiologist: Ting Anesthesia: GET(General Endotracheal) Pre-op Diagnosis: sepsis Post-op Diagnosis: possible abdominal compartment syndrome Procedure: ex-lap, adhesiolysis Findings: No abscess, both anastomoses looked great and intact. Inf/Abcess present in the surg proc area at time of surgery?: No EBL: Minimal Drains: Other (ABThera open abdomen)
[2017-04-26] MEDS ORDERED: ALBUMIN 5% 1,000 ML IV ONE (19:00)
[2017-04-26] MEDS: ALBUTEROL 200 PUFFS/18 GM MDI IH SCH ×2 (20:16→23:26)
[2017-04-26] MEDS ORDERED: ALBUMIN 5% 250 ML BOTTLE IV ONE (20:34)
[2017-04-26 20:55] LABS: INR 1.88 (0.83-1.16); PROTIME(PATIENT) 21.7 SEC (12.0-15.0)
[2017-04-26] MEDS ORDERED: FAMOTIDINE 20 MG/NACL 50 ML IV SCH (21:00)
[2017-04-26] MEDS: TPN W/ FAMOTIDINE 1 EA BAG IV SCH (21:00)
--- NOTE | 2017-04-26 21:13 | SOAPPROG ---
SOAP Progress Note Assessment/Plan: Assessment: 72-YEAR-OLD MALE WITH OPEN ABDOMEN AFTER PERFORATED BOWEL HAD INCARCERATED INGUINAL HERNIA/DOING REASONABLY WELL/STILL ON VENTILATOR/WOUND VAC IN PLACE ABDOMEN RELATIVELY SOFT/AFEBRILE/LAB STABLE CHEST RELATIVELY CLEAR/COR REGULAR RHYTHM Plan: CONSIDER LAPAROTOMY FOR WASHOUT AND POSSIBLE CLOSURE IN THE NEXT 12:48 P.M. FORTY EIGHT HOURS BEFORE EXTUBATION 04/14/17 12:45 04/15/17 12:00 AFEBRILE/VITAL SIGNS STABLE/STILL ON VENT/LARGE NG AND WOUND VAC OUTPUTS/WBC 14 K/ABDOMEN SOFT WITH BOWEL SOUNDS/TOLERATING THE VENTILATOR WELL BEING SO STABLE PLAN ON WOUND VAC CHANGE AND POSSIBLE ABDOMINAL CLOSURE IN THE A.M. UNLESS HIS CONDITION WORSENS OR INCREASING ABDOMINAL PRESSURE 04/15/17 14:33 04/18/17 19:30 AFEBRILE/ VAC IN PLACE AND FUNCTIONING/ WOUND OK/ ABD SOFT/ EPISODE OF LGI BLEED LAST PM BUT NO REPEAT AFTER STOPPING HEPARIN HCT STABLE/ INR 1.6/ PT PULLED HIS NG OUT/ UO GOOD 04/26/17 21:09 CALLED TO SEE PATIENT FOR HYPERTENSION AND BLEEDING FROM THE WOUND VAC/BP RUNNING IN THE 70S AND 80S AND PULSE 100/URINE OUTPUT IS BEEN MINISCULE SINCE HIS SURGERY 4 HOURS AGO/HEMATOCRIT IS DOWN TO 22/WOUND VAC CHANGE WITH A LARGE AMOUNT OF CLOT UNDER THE ABTHERA/CLOT WAS EVACUATED SOME BLOODY FLUID SECTION CLEAR AND THE WOUND VAC AND ABTHERA WAS THEN REPLACED COAGS WERE SENT WITH AN INR 1.9 A PROTIME OF 21 AND A PTT 44 WILL USE K CENTRA AND VITAMIN K/ LAPAROTOMY IF HE CONTINUES TO BLEED ALTHOUGH HE SEEMS TO HAVE A COAGULOPATHY AT PRESENT/HE IS ALSO ON PRESSOR SUPPORT AND HAS BEEN SINCE HIS SURGERY/HE APPARENTLY RECEIVED 4 UNITS OF BLOOD PRIOR TO SURGERY WITH HEMATOCRIT OF 17 THIS MORNING FOR UNKNOWN REASON Objective: Vital Signs Temp Pulse Resp BP Pulse Ox 36.2 C 101 H 20 98/46 L 100 04/26/17 14:53 04/26/17 18:29 04/26/17 18:29 04/26/17 18:29 04/26/17 18:29 Microbiology 04/24/17 14:50 Gram Stain - Final Other - Other Laboratory Results 04/26/17 18:37 04/26/17 05:15 04/25/17 04/26/17 04/27/17 05:59 05:59 05:59 Intake Total 2264 2909 1835.6 Output Total 801 440 420 Balance 1463 2469 1415.6 PT 21.7 SEC (12.0-15.0) H 04/26/17 20:36 INR 1.88 (0.83-1.16) H 04/26/17 20:36 ICD10 Worksheet Patient Problems: Problems Problem Status Onset Acute exacerbation of congestive heart failure Acute Atrial fibrillation with rapid ventricular response Acute DM type 1 (diabetes mellitus, type 1) Acute Perforated bowel Acute Renal failure Acute Altered mental status Acute Aspiration pneumonia Acute COPD (chronic obstructive pulmonary disease) Acute Lumbosacral radiculopathy at L5 Acute Narcotic dependency, continuous Acute Severe sepsis with septic shock Acute Spinal stenosis, lumbar Acute Tobacco dependence Acute - ICD10 Problem Qualifiers (1) Perforated bowel
[2017-04-26] MEDS ORDERED: PHYTONADIONE 10 MG in NS 50 ML IV ONE (21:30)
[2017-04-26] MEDS ORDERED: HUMAN PROTHROMBIN COMPLX IV ONE (21:30)
[2017-04-26] MEDS: QUEtiapine FUMARATE 25 MG TAB PO SCH (22:23)
[2017-04-26 23:26] LABS: INR 1.51 (0.83-1.16); PROTIME(PATIENT) 18.2 SEC (12.0-15.0)
[2017-04-26] MEDS ORDERED: ALBUMIN 5% 500 ML IV ONE (23:30)
[2017-04-26] MEDS ORDERED: BUPIVACAINE 0.5% 30 ML SDV ONE (23:36)
[2017-04-27] MEDS: PIPERACILLIN/TAZO 3.375 GM/DEX 50 ML IV SCH ×2 (00:09→05:49)
--- NOTE | 2017-04-27 00:22 | PDANEPAE ---
ANE Past Medical History - Cardiovascular History Hx Hypertension: Yes Hx Arrhythmias: No Hx Chest Pain: No Hx Coronary Artery / Peripheral Vascular Disease: Yes Hx CHF / Valvular Disease: Yes Hx Palpitations: No Cardiovascular History Comment: CAD W/STENT 2005. CHF (R/L HEART FAILURE). HTN. HYPERLIPIDEMIA - Pulmonary History Hx COPD: Yes Hx Asthma/Reactive Airway Disease: No Hx Recent Upper Respiratory Infection: No Hx Oxygen in Use at Home: Yes O2 in Use at Home (L/minute): 2 Hx Sleep Apnea: No Pulmonary History Comment: COPD. NOCTURNAL HYPOXIA, 4L O2 AT HS, RA DURING DAY - Neurologic History Hx Cerebrovascular Accident: No Hx Seizures: No Hx Dementia: No Neurologic History Comment: DIABETIC NEUROPATHY. GAIT INSTABILITY X 3 MONTHS. LUMBAR BACK PAIN - Endocrine History Hx Diabetes: Yes Endocrine History Comment: HYPERPARATHYROIDISM. NIDDM. NO INSULIN OR ORAL ANTIHYPERGLYCEMICS, MANAGES WITH DIET AND EXERCISE. - Renal History Hx Renal Disorders: No - Liver History Hx Hepatic Disorders: No - Neurological & Psychiatric Hx Hx Neurological and Psychiatric Disorders: Yes Neurological / Psychiatric History Comment: DEPRESSION - Cancer History Hx Cancer: Yes Cancer History Comment: PROSTATE CA 2002 - Congenital Disorder History Hx Congenital Disorders: No - GI History Hx Gastrointestinal Disorders: Yes Gastrointestinal History Comment: OPIOID INDUCED CONSTIPATION. - Other Health History Other Health History: CHRONIC OPIOID USE FOR BACK PAIN, JOINT PAIN. INSOMNIA. VITAMIN D DEFICIENCY - Chronic Pain History Chronic Pain: Yes - Surgical History Prior Surgeries: RETINAL DETACTCHMENT X3, BILAT ROTATOR CUFF REPAIR, BILATERAL FOOT SURGERIES WITH HARDWARE IN TOES, RAD PROSTATECTOMY 2001. ANE Review of Systems Review of Systems: ANE Patient History - Allergies Allergies/Adverse Reactions: No Known Allergies Allergy (Unverified 12/26/10 10:34) - Home Medications Home Medications: Aspirin EC [Aspirin EC 81 mg (*)] 81 mg PO DAILY 06/06/16 [Last Taken 09/16/16 08:00] Mirtazapine 15 mg PO HS 09/16/16 [Last Taken 09/15/16 20:00] Pregabalin [Lyrica 75mg (*)] 75 mg PO TID 09/16/16 [Last Taken 09/14/16] Aclidinium [place] [Tudorza Pressair] 1 puffs IH Q12 04/12/17 [Last Taken Unknown] Olmesartan Medoxomil [Olmesartan Medoxomil] 5 mg PO DAILY 04/12/17 [Last Taken Unknown] Quetiapine Fumarate [Quetiapine Fumarate] 25 mg PO HS 04/12/17 [Last Taken Unknown] morphINE SR [Ms Contin/Oramorph 100 mg (*)] 100 mg PO TID 04/12/17 [Last Taken Unknown] oxyCODONE IR [Oxycodone Ir (*)] 30 mg PO Q4 PRN 04/12/17 [Last Taken Unknown] - NPO status NPO Since - Liquids (Date): 04/25/17 NPO Since - Solids (Date): 04/25/17 - Smoking Hx Smoking Status: Current every day smoker - Family Anes Hx Family Hx Anesthesia Complications: NEG ANE Labs/Vital Signs - Labs Result Diagrams: 04/26/17 22:05 04/26/17 05:15 - Vital Signs Blood Pressure: 98/46 Heart Rate: 108 Respiratory Rate: 20 O2 Sat (%): 98 Height: 177.8 cm Weight: 99 kg ANE Physical Exam - Airway Mallampati Score: Unable to assesss Mouth exam: ETT in situ - Pulmonary Pulmonary: inspiratory crackles - Cardiovascular Cardiovascular: regular rate and rhythym - ASA Status ASA Status: IV, E ANE Anesthesia Plan Anesthesia Plan: general endotracheal anesthesia
[2017-04-27] MEDS ORDERED: fentaNYL 100 MCG/2 ML INJ ONE ×3 (01:10→09:02)
[2017-04-27] MEDS ORDERED: MIDAZOLAM 2 MG/2 ML VIAL ONE ×2 (01:37→09:02)
[2017-04-27] MEDS ORDERED: THROMBIN (BOVINE) 20,000 UNIT VIAL TP ONE (02:30)
[2017-04-27] MEDS ORDERED: TRANEXAMIC ACID 1,000 MG in NS 100 ML IV ONE (02:30)
--- NOTE | 2017-04-27 03:14 | POSTOPPROG ---
Post Op Note Date of Operation: 04/27/17 Surgeon: Noe Lee Anesthesiologist: tadeo Anesthesia: GET(General Endotracheal) Pre-op Diagnosis: intraabdominal hemorhage Post-op Diagnosis: retroperitoneal hemorhage Indication: shock Procedure: laparotomy, drainage and packing of giant retroperitoneal hematoma Findings: 1500cc fresh clot and 2500cc old blood in retroperitoneum surrounding perc Inf/Abcess present in the surg proc area at time of surgery?: No Depth: Organ Space EBL: Greater than 1000 Complications: 0 Drains: Wound Vac Specimen(s): 6 laps tied together and packed in left retroperitoneal space
--- NOTE | 2017-04-27 03:43 | POSTANESTH ---
Post Anesthetic Evaluation Cardiovascular Status: Similar to Pre-Op Cond Respiratory Status: Similar to Pre-op Cond. Level of Consciousness/Mental Status: Unconscious Pain Control: Adequate, Prn Tx Ordered Nausea/Vomiting Control: Adequate, Prn Tx Ordered Complications Possibly Related to Anesthesia: None Noted
[2017-04-27 03:50] LABS: PLATELET COUNT 69 10^3/uL (150-400)
[2017-04-27 04:00] LABS: INR 1.74 (0.83-1.16); PROTIME(PATIENT) 20.4 SEC (12.0-15.0)
[2017-04-27] MEDS: ALBUTEROL 200 PUFFS/18 GM MDI IH SCH ×6 (04:14→23:21)
--- NOTE | 2017-04-27 04:33 | GOP ---
[f rep st] OPERATIVE REPORT DATE OF OPERATION: 04/27/2017 SURGEON: Noe Lee MD SHOEMAKER CUSTOM: There was no assistant site manager. ANESTHESIOLOGIST: Dr. Nguyễn. PREOPERATIVE DIAGNOSIS: Intraabdominal hemorrhage. POSTOPERATIVE DIAGNOSIS: Major retroperitoneal hemorrhage. PROCEDURE PERFORMED: laparotomy, removal of abdominal packs, abdominal washout and fascial closure FINDINGS: The patient was found to have a giant retroperitoneal hematoma associated with his percutaneous drain in the left upper quadrant. He had 2500 cc of old blood in the abdominal cavity and retroperitoneum as well as 1500 cc of reasonably fresh clot and no active bleeding site could be definitely identified in the depths of this hematoma. DESCRIPTION OF PROCEDURE: The patient was taken to the operating room where he received satisfactory general endotracheal anesthesia by Dr. Nguyễn. He was placed in supine position. His ABThera wound VAC was removed. Abdomen was already open. The small bowel was freed up from fibrinous adhesions and explored. A large amount of bloody fluid was suctioned to clear from the peritoneal cavity; however, the major amount of blood was in the retroperitoneum and the left upper quadrant. The hematoma area was already open and that opening was enlarged and a massive amount of old clot and semi- fresh clot was evacuated. The cavity was irrigated out and cleared of clots and blood. The percutaneous pigtail catheter was in the middle of this area. With his markedly distended bowels, it was difficult to see into this cavity. It appeared to be still oozing around areas, but no definite active bleeding site could be identified. After evacuation of this area, the wound was instilled with some topical thrombin and some Winter powder and then packed with 6 laparotomy pads which were tied together in 2 groups, 4 and 2, and packed into the retroperitoneal space. After evacuating all of this, he was much more stable. Blood pressure was better and the urine output was picking up. The abdomen was dressed with ABThera subfascial dressing covered with a wound VAC foam and connected to the wound VAC. During the procedure, he received several units of blood, at least 2 units of FFP, 10 platelet packs, treatment with TXA. He tolerated the procedure amazingly well and was taken back to the ICU on a ventilator in stable condition. Copy requested to: Dr. Avendaño /[id number]/MODL MTDD
[2017-04-27] MEDS: ALTEPLASE 2 MG VIAL IVP PRN (04:45)
[2017-04-27] MEDS: INSULIN REGULAR HUMAN 100 UNIT/ML SC SCH ×4 (05:48→18:00)
[2017-04-27] MEDS: SODIUM BICARBONATE 100 MEQ in D5W 1,000 ML IV SCH (05:50)
[2017-04-27] MEDS: NOREPINEPHRINE/NS 500 ML IV SCH ×2 (07:00→11:30)
--- NOTE | 2017-04-27 07:15 | POSTANESTH ---
Post Anesthetic Evaluation Cardiovascular Status: Normal, Stable Respiratory Status: Normal, Stable, Requires Airway Assist Level of Consciousness/Mental Status: Can Participate in Eval, Unconscious ( Patient transfered sedated and intubated to ICU. Norepinephrine started in OR. Delay receiveing from pharmacy of >40 minutes. No apparent complications noted.) Pain Control: Adequate, Prn Tx Ordered Nausea/Vomiting Control: Adequate, Prn Tx Ordered Complications Possibly Related to Anesthesia: Other, See Comments
--- NOTE | 2017-04-27 08:11 | SOAPPROG ---
SOAP Progress Note Assessment/Plan: Assessment: 72-YEAR-OLD MALE WITH OPEN ABDOMEN AFTER PERFORATED BOWEL HAD INCARCERATED INGUINAL HERNIA/DOING REASONABLY WELL/STILL ON VENTILATOR/WOUND VAC IN PLACE ABDOMEN RELATIVELY SOFT/AFEBRILE/LAB STABLE CHEST RELATIVELY CLEAR/COR REGULAR RHYTHM Plan: CONSIDER LAPAROTOMY FOR WASHOUT AND POSSIBLE CLOSURE IN THE NEXT 12:48 P.M. FORTY EIGHT HOURS BEFORE EXTUBATION 04/14/17 12:45 04/15/17 12:00 AFEBRILE/VITAL SIGNS STABLE/STILL ON VENT/LARGE NG AND WOUND VAC OUTPUTS/WBC 14 K/ABDOMEN SOFT WITH BOWEL SOUNDS/TOLERATING THE VENTILATOR WELL BEING SO STABLE PLAN ON WOUND VAC CHANGE AND POSSIBLE ABDOMINAL CLOSURE IN THE A.M. UNLESS HIS CONDITION WORSENS OR INCREASING ABDOMINAL PRESSURE 04/15/17 14:33 04/18/17 19:30 AFEBRILE/ VAC IN PLACE AND FUNCTIONING/ WOUND OK/ ABD SOFT/ EPISODE OF LGI BLEED LAST PM BUT NO REPEAT AFTER STOPPING HEPARIN HCT STABLE/ INR 1.6/ PT PULLED HIS NG OUT/ UO GOOD 04/26/17 21:09 CALLED TO SEE PATIENT FOR HYPERTENSION AND BLEEDING FROM THE WOUND VAC/BP RUNNING IN THE 70S AND 80S AND PULSE 100/URINE OUTPUT IS BEEN MINISCULE SINCE HIS SURGERY 4 HOURS AGO/HEMATOCRIT IS DOWN TO 22/WOUND VAC CHANGE WITH A LARGE AMOUNT OF CLOT UNDER THE ABTHERA/CLOT WAS EVACUATED SOME BLOODY FLUID SECTION CLEAR AND THE WOUND VAC AND ABTHERA WAS THEN REPLACED COAGS WERE SENT WITH AN INR 1.9 A PROTIME OF 21 AND A PTT 44 WILL USE K CENTRA AND VITAMIN K/ LAPAROTOMY IF HE CONTINUES TO BLEED ALTHOUGH HE SEEMS TO HAVE A COAGULOPATHY AT PRESENT/HE IS ALSO ON PRESSOR SUPPORT AND HAS BEEN SINCE HIS SURGERY/HE APPARENTLY RECEIVED 4 UNITS OF BLOOD PRIOR TO SURGERY WITH HEMATOCRIT OF 17 THIS MORNING FOR UNKNOWN REASON 04/27/17 08:08 still marginal vs this am with bp 85 on pressors/ uo weak/ labs pending but plts decreased earlier cxr shows large rt effusion and picc line up jugular/ will need new picc and probable rt chest tube or thorascentesis Objective: Vital Signs Temp Pulse Resp BP Pulse Ox 36.4 C 94 24 H 106/48 L 95 04/27/17 05:00 04/27/17 06:00 04/27/17 06:00 04/27/17 06:00 04/27/17 06:00 Microbiology 04/24/17 14:50 Gram Stain - Final Other - Other Laboratory Results 04/27/17 03:42 04/27/17 03:42 04/26/17 04/27/17 04/28/17 05:59 05:59 05:59 Intake Total 2909 5035.6 Output Total 440 1755 Balance 2469 3280.6 PT 20.4 SEC (12.0-15.0) H 04/27/17 03:42 INR 1.74 (0.83-1.16) H 04/27/17 03:42 ICD10 Worksheet Patient Problems: Problems Problem Status Onset Acute exacerbation of congestive heart failure Acute Atrial fibrillation with rapid ventricular response Acute DM type 1 (diabetes mellitus, type 1) Acute Perforated bowel Acute Renal failure Acute Altered mental status Acute Aspiration pneumonia Acute COPD (chronic obstructive pulmonary disease) Acute Lumbosacral radiculopathy at L5 Acute Narcotic dependency, continuous Acute Severe sepsis with septic shock Acute Spinal stenosis, lumbar Acute Tobacco dependence Acute - ICD10 Problem Qualifiers (1) Perforated bowel
[2017-04-27 08:12] LABS: PLATELET COUNT 106 10^3/uL (150-400)
[2017-04-27] MEDS ORDERED: LIDOCAINE 2% JELLY 5 ML TUBE TP ONE (08:33)
[2017-04-27] MEDS ORDERED: LIDOCAINE 1% 300 MG/30 ML SDV MISC ONE (08:33)
[2017-04-27] MEDS ORDERED: BENZOCAINE UNIT DOSE SPRAY HURRICAINE MM ONE (08:33)
--- NOTE | 2017-04-27 08:36 | PDINTPN ---
Rope Coiling Machine Operator Progress Note Assessment/Plan: Assessment/Plan: * Acute respiratory failure-stable on mechanical ventilation however is requiring high FiO2 -wean as tolerated * Large right pleural effusion-query if this is bleeding. * Severe anemia-large amounts of transfusions last night, he is still anemic * Shock-likely hypovolemic -continue transfusions, crystalloids and colloids -continue pressors * Status post exploratory laparotomy sedation-he returned to the OR last night * Sedation-adequate * COPD * Prostate cancer * Chronic back pain * With stress ulcer prophylaxis * VTE prophylaxis * Prognosis-guarded 45 minutes of critical care time spent with patient Case discussed with respiratory therapy and nursing Subjective: Up tended on mechanical ventilation Objective: Vital Signs Temp Pulse Resp BP Pulse Ox 35.9 C L 93 24 H 107/51 L 93 04/27/17 08:00 04/27/17 08:13 04/27/17 08:13 04/27/17 08:00 04/27/17 08:00 Microbiology 04/24/17 14:50 Gram Stain - Final Other - Other Laboratory Results 04/27/17 08:05 04/27/17 03:42 04/26/17 04/27/17 04/28/17 05:59 05:59 05:59 Intake Total 2909 5035.6 Output Total 440 1755 Balance 2469 3280.6 PT 20.4 SEC (12.0-15.0) H 04/27/17 03:42 INR 1.74 (0.83-1.16) H 04/27/17 03:42 Chest [id number] by myself. Endotracheal tube is high. Right PICC line terminates is in the neck. There is a large right pleural effusion with significant atelectasis of the right lung. - Time Spent With Patient Time Spent With Patient: 45 minutes Physical Exam - Physical Exam General Appearance: obtunded, other EENT: PERRL/EOMI, ET tube Neck: non-tender, full range of motion Respiratory: decreased breath sounds (Right), crackles (Few throughout), No respiratory distress Cardiac/Chest: normal peripheral pulses, regular rate, rhythm, tachycardia (nds distant), other Abdomen: non-tender, distended Male Genitalia: deferred Rectal: deferred Skin: normal color, warm/dry Neuro/Psych: other (Sedated), No alert ICD10 Worksheet Patient Problems: Problems Problem Status Onset Acute exacerbation of congestive heart failure Acute Atrial fibrillation with rapid ventricular response Acute DM type 1 (diabetes mellitus, type 1) Acute Perforated bowel Acute Renal failure Acute Altered mental status Acute Aspiration pneumonia Acute COPD (chronic obstructive pulmonary disease) Acute Lumbosacral radiculopathy at L5 Acute Narcotic dependency, continuous Acute Severe sepsis with septic shock Acute Spinal stenosis, lumbar Acute Tobacco dependence Acute
[2017-04-27] MEDS ORDERED: LIDOCAINE 1% 300 MG/30 ML SDV ONE (08:57)
[2017-04-27] MEDS ORDERED: fentaNYL 100 MCG/2 ML INJ IVP ONE ×2 (09:00→12:45)
--- NOTE | 2017-04-27 10:44 | PCMIDPN ---
Assessment/Plan: 1. History of septic shock secondary to peritonitis. Patient with history of incarcerated/strangulated right inguinal hernia with perforated small bowel and necrotic cecum now with severe coagulopathy status post washout and removal of large retroperitoneal hematoma: Patient was on multiple days of Unasyn, and now most recently 5 days of Zosyn. Piperacillin can cause both a qualitative and quantitative platelet disorder. He is also at risk for a beta-lactam mediated hemolytic anemia. Micafungin has also been associated with thrombocytopenia. For now, will discontinue beta lactam therapy (Zosyn). Will switch class of antibiotics to levofloxacin, dose adjusted for renal insufficiency, and add metronidazole given history of abdominal catastrophe and probable anaerobic contribution. Will also discontinue Micafungin. As per my prior notes, the patient actually never grew fungus in his peritoneal fluid. The Berkley albicans was isolated from sputum. I have also spoken with Dr. Claudio Guzmán of Hematology who will see the patient today given concerns for hemolytic anemia and persistent bleeding. 04/27/17 10:51 Subjective: Patient has unfortunately had an eventful past 48 hours. He was taken back to the operating room by Dr. Avendaño given worsening leukocytosis and increasing abdominal distension with following hematocrit. He was found to have intact anastomoses, with no evidence of ongoing infection per Se and no abscess cavity. Because his abdomen was so distended, it was left open and a wound VAC placed. Last evening, Dr. Lee was urgently paged to see the patient in the setting of persistent hypotension, and abdominal distention. He was taken back to the operating room and his wound VAC removed. He was found to have a large retroperitoneal hematoma. This was evacuated. He received 8 units of packed red blood cells, multiple bags of FFP, and 10 of platelets. He remains hypotensive on 18 mcg of Levophed. His hematocrit remains low, and his platelets are falling. He is coagulopathic with an elevated PT and PTT. Objective: Zosyn 3.375 g IV q.6 hours day 5 Micafungin 100 mg IV daily day 14 (total antibiotics day 14) Hypothermic Vital Signs Temp Pulse Resp BP Pulse Ox 35.9 C L 93 24 H 107/51 L 93 04/27/17 08:00 04/27/17 08:13 04/27/17 08:13 04/27/17 08:00 04/27/17 08:00 Microbiology 04/24/17 14:50 Gram Stain - Final Other - Other Laboratory Results 04/27/17 08:05 04/27/17 03:42 04/26/17 04/27/17 04/28/17 05:59 05:59 05:59 Intake Total 2909 5035.6 Output Total 440 1755 Balance 2469 3280.6 Repeat abdominal cultures and fungal cultures are pending - Physical Exam General Appearance: other (Intubated and sedated.) EENT: ET Tube Respiratory: other (Chest tube in place on the right. Bloody drainage from chest tube.) Neck: other (Left IJ in place.) Cardiac/Chest: tachycardia Extremities: other (PICC line right upper extremity. ) Abdomen: other (Wound VAC in place. No obvious cellulitis. No bowel sounds. Abdomen very distended.) Skin: No rash, No embolic lesions ICD10 Worksheet Patient Problems: Problems Problem Status Onset Acute exacerbation of congestive heart failure Acute Atrial fibrillation with rapid ventricular response Acute DM type 1 (diabetes mellitus, type 1) Acute Perforated bowel Acute Renal failure Acute Altered mental status Acute Aspiration pneumonia Acute COPD (chronic obstructive pulmonary disease) Acute Lumbosacral radiculopathy at L5 Acute Narcotic dependency, continuous Acute Severe sepsis with septic shock Acute Spinal stenosis, lumbar Acute Tobacco dependence Acute
[2017-04-27 10:59] LABS: INR 1.37 (0.83-1.16); PROTIME(PATIENT) 16.9 SEC (12.0-15.0)
[2017-04-27] MEDS ORDERED: AMIODARONE A.FIB-18HR INFSN (ORDER 3/3) IV SCH (11:00)
[2017-04-27] MEDS: fentaNYL/NACL 100 ML IV SCH ×2 (12:00→20:57)
--- NOTE | 2017-04-27 12:10 | ASMTCMCOM ---
CM Note CM Note Notes: Chart reviewed. Patient discussed in am rounds. Prognosis is gaurded per MD. He is s/p exploratory surgery and evacuation of hematoma as well as rght chest tube placement. Intubated. Per family Jake trying to co-ordinate a meeting time to discuss POC. NTBD at this time. CM to follow, Date Signed: 04/27/2017 12:09 PM Electronically Signed By:Jessica Lema RN
--- NOTE | 2017-04-27 12:52 | ASMTCMCOM ---
CM Note CM Note Notes: Spoke with daughter Rosalia as she is main contact and acting proxy for this patient. She is agreeable to meeting this afternoon. She will attempt to reach her Aunt to make a definite time. She has CM phone number to call. Chart reviewed. Patient discussed in am rounds. Prognosis is guarded per MD. He is s/p exploratory surgery and evacuation of hematoma as well as Right chest tube placement. Intubated. Per Chaplain Oliva, family trying to co-ordinate a meeting time to discuss POC. NTBD at this time. CM to follow. Date Signed: 04/27/2017 12:52 PM Electronically Signed By:Jessica Lema RN
--- NOTE | 2017-04-27 13:06 | CPEKG ---
Heart Rate: 97 RR Interval: 619 QRSD Interval: 80 QT Interval: 309 QTC Interval: 393 QRS [place]: 40 EKG Severity - ABNORMAL ECG - EKG Impression: ATRIAL FIBRILLATION, V-RATE 0-0 EKG Impression: LOW VOLTAGE IN FRONTAL LEADS Electronically Signed By: Raciel Pelayo 27-Apr-2017 13:12:20
--- NOTE | 2017-04-27 13:06 | CPEKG ---
Heart Rate: 97 RR Interval: 619 QRSD Interval: 80 QT Interval: 309 QTC Interval: 393 QRS [place]: 40 EKG Severity - ABNORMAL ECG - EKG Impression: ATRIAL FIBRILLATION, V-RATE 0-0 EKG Impression: LOW VOLTAGE IN FRONTAL LEADS Electronically Signed By: Raciel Pelayo 27-Apr-2017 13:12:20
--- NOTE | 2017-04-27 13:29 | SOAPPROG ---
SOAP Progress Note Assessment/Plan: Assessment/Plan: 72yo M s/p ex-lap for incarcerated/strangulated RIGH c necrotic cecum, proximal perforated small bowel. Now s/p re-anastomosis and closure - Patient taken back to OR last night where large L sided retroperitoneal bleed was found. He is packed and abdomen remains open. Still on pressors and actively being transfused. - Large R sided effusion this AM, placed bedside 28Fr CT - Also placed new L IJ CVC for access. - Continue to transfuse, check coags and correct as needed. Picture looks a lot like DIC but really unclear why it presented so precipitously. - I spoke with his daughter on the phone this AM, she is aware that the patient is critical and aware of interventions being undertaken. Will cont full support at this time. 04/13/17 05:14 04/16/17 09:19 04/16/17 09:24 04/16/17 09:29 04/17/17 10:27 04/19/17 08:27 04/20/17 09:58 04/21/17 10:31 04/22/17 09:16 04/23/17 13:20 04/24/17 10:50 04/26/17 07:16 04/27/17 13:27 Subjective: Intubated, sedated, able to shake his head yes or no. Objective: Vital Signs Temp Pulse Resp BP Pulse Ox 35.9 C L 106 H 24 H 107/51 L 99 04/27/17 08:00 04/27/17 12:03 04/27/17 12:03 04/27/17 08:00 04/27/17 12:03 Microbiology 04/24/17 14:50 Gram Stain - Final Other - Other Laboratory Results 04/27/17 08:05 04/27/17 10:30 04/26/17 04/27/17 04/28/17 05:59 05:59 05:59 Intake Total 2909 5035.6 Output Total 440 1755 Balance 2469 3280.6 PT 16.9 SEC (12.0-15.0) H 04/27/17 10:30 INR 1.37 (0.83-1.16) H 04/27/17 10:30 ICD10 Worksheet Patient Problems: Problems Problem Status Onset Acute exacerbation of congestive heart failure Acute Atrial fibrillation with rapid ventricular response Acute DM type 1 (diabetes mellitus, type 1) Acute Perforated bowel Acute Renal failure Acute Altered mental status Acute Aspiration pneumonia Acute COPD (chronic obstructive pulmonary disease) Acute Lumbosacral radiculopathy at L5 Acute Narcotic dependency, continuous Acute Severe sepsis with septic shock Acute Spinal stenosis, lumbar Acute Tobacco dependence Acute
--- NOTE | 2017-04-27 13:29 | SOAPPROG ---
SOAP Progress Note Assessment/Plan: Assessment: 1.) Consumptive Coagulopathy with large volume blood, including plasma loss into Retroperitoneal space, abdominal and chest cavity. No S/P Explor Lap in past 18 hours showing no active bleeding site at closure of procedure earlier today. Pt has required PRBC and FFP/PLT and Cryopppt. support consistent with his intra-abdominal blood loss. As of this AM, his Fibrinogen, PT, PTT, PLT count are reasonably well compensated and I have ordered stat repeat PT, PTT, CBC, and Fibrinogen assay at 1 PM today. 2.) Polymicrobial sepsis. 3.) Anemia- multifactorial. I have ordered stat Haptoglobin to rule out significant hemolysis. Doubt that patient has clinically significant hemolysis in addition to intra-cavitary blood loss. 4.) Hypotension 5.) Respiratory failure with COPD/hypoxemia 6.) Type II DM 7.) Hyperlipidemia 8.) Strangulated small bowel in [facility], S/P surgical repair complicated by small intestine perf/peritonitis from cecal perf. 9.) Afib 10.) Peripheral Arterial insuff. 11.) Acute Renal Insuff. 12.) Hx. of prostate cancer 13.) LUE superficial thrombus 14.) Recent septic shock 15.) Chronic back pain/chronic narcotic use 16.) No known chronic or acute Hemostatic disorder notable aside from Consumptive Coagulopathy as described above. Plan: 1.) Recheck PT/PTT/Haptoglobin/Fibrinogen/CBC early this afternoon. 2.) Await above studies 3.) Continue blood product replacement as needed. 4.) Our service will follow and notes ongoing ICU support and medication usage. 04/27/17 13:29 Subjective: Pt obtunded/sedated Objective: Drainage output noted over past 24 hours. Oarge volume old and fresh blood found at Explor Lap (4,000 mL total). large R bloody pleural effusion noted. Pt at 20 degrees on vent/sedated. No active bleeding from NGT/ETT, art line L subclavian line, or PICC line. Wound vac intact/inplace HEENT- NGT and ETT in place, scleral icterus + Neck- supple Chest- aequate bilateral breath sounds CVS- RSR borderline ST, distant BS ABD- large abdomen, BS markedly diminished. Large wound vac in place with bloody drainage, No HSM by exam EXT- edematous, warm, well perfused. Scattered ecchymoses, no petechiae. Stasis venous changes noted below knees, bilaterally Labs: see below, Fibrinogen 328, PT 16.9, PTT 34.5 PLT 106, Hgb 6.3, WBC 16.02 with ANC 13.6 LDH 427, AST/ALT 21/26, albumin 2.11, Total protein 4.4 CO2 20 BUN/CR 71/2.2 Vital Signs Temp Pulse Resp BP Pulse Ox 35.9 C L 106 H 24 H 107/51 L 99 04/27/17 08:00 04/27/17 12:03 04/27/17 12:03 04/27/17 08:00 04/27/17 12:03 Microbiology 04/24/17 14:50 Gram Stain - Final Other - Other Laboratory Results 04/27/17 08:05 04/27/17 10:30 04/26/17 04/27/17 04/28/17 05:59 05:59 05:59 Intake Total 2909 5035.6 Output Total 440 1755 Balance 2469 3280.6 PT 16.9 SEC (12.0-15.0) H 04/27/17 10:30 INR 1.37 (0.83-1.16) H 04/27/17 10:30 ICD10 Worksheet Patient Problems: Problems Problem Status Onset Acute exacerbation of congestive heart failure Acute Atrial fibrillation with rapid ventricular response Acute DM type 1 (diabetes mellitus, type 1) Acute Perforated bowel Acute Renal failure Acute Altered mental status Acute Aspiration pneumonia Acute COPD (chronic obstructive pulmonary disease) Acute Lumbosacral radiculopathy at L5 Acute Narcotic dependency, continuous Acute Severe sepsis with septic shock Acute Spinal stenosis, lumbar Acute Tobacco dependence Acute
[2017-04-27] MEDS ORDERED: NOREPINEPHRINE BITARTRATE 16 MG in NS 250 ML IV SCH (13:30)
[2017-04-27 13:46] LABS: PLATELET COUNT 101 10^3/uL (150-400)
[2017-04-27 14:05] LABS: INR 1.45 (0.83-1.16); PROTIME(PATIENT) 17.6 SEC (12.0-15.0)
[2017-04-27] MEDS: AMIODARONE HCL 200 MG TAB PO SCH (14:06)
[2017-04-27] MEDS: COLLAGENASE 30 GM OINTMENT TP SCH (14:06)
[2017-04-27] MEDS: CHLORHEXIDINE GLUCONATE 15 ML UDL PO SCH ×3 (14:06→20:08)
[2017-04-27] MEDS: NICOTINE 21 MG/24 HR PATCH TD SCH (14:07)
[2017-04-27] MEDS: MICAFUNGIN NA 100 MG in NS 100 ML IV SCH (14:08)
[2017-04-27] MEDS: SENNOSIDES/DOCUSATE SODIUM TAB PO SCH (14:08)
[2017-04-27] MEDS: PREGABALIN 75 MG CAP PO SCH ×2 (14:08→16:38)
[2017-04-27] MEDS ORDERED: CALCIUM GLUCONATE 1 GM in D5W 50 ML IV ONE (14:30)
[2017-04-27] MEDS ORDERED: CALCIUM GLUCONATE 50 ML IV ONE ×2 (14:30→19:00)
--- NOTE | 2017-04-27 15:09 | HOSPPROG ---
Hospitalist Progress Note Assessment/Plan: 72 yo M w AF admitted w AF, hypotension and bowel perf 72 yo M with PMH of copd, chronic resp failure pw septic shock/polymicrobial bacteremia in setting of bowel perforation septic shock: on pressors checking cvp has received IVF and a great deal of blood products acute blood loss anemia: source no apparent as RP bleed and R pleural effusion has received 11 units toal packed red cells this week ?DIC: fibrinogen normal modestly elevated INR noted follow daily ID concerned about potential for qualitative platelet dysfunction polymicrobial bacteremia d/t staph epi and bacteroides - repeat BCx from 04/20 with ngtd; ID following, on levoflagyl small bowel perforation with gross peritonitis 2/2 incarcerated/strangulated necrotic cecum - s/p re-anastamosis/fascial closure and wound vac placement and now repeat ex lap on 04/26--abdomen left open for now -see above yolanda: continues to increase for the last 3 days, now up to 2.1. Now with ferguson in place. Has been persistently hypotensive as next and suspect this is largely HD mediated. FENA 0.35 c/w pre renal etiology. Will continue to hold lasix. Suspect HD mediated and related to hypotension, acute blood loss. Now with open abdomen at risk for worsening insensible losses. hypotension - continued and seems to be affected significantly by pain medications--query if pain meds are accumulating, particularly morphine which has been leading to worsening hypotension and somnolence. Holding morphine and monitoring, headed to ICU as will likely need pressor support. volume overload/acute diastolic CHF - had been up 7kg and per records up another 8kg overnight (? error), does appear volume overloaded though query intravascularly dry given yolanda as above. Holding diuresis for hypotension and YOLANDA. bloody wound vac output - resolved superficial thrombus LUE: without dvt, holding AC for now given recent bleed and ongoing oozing and need for repeat procedure. Warm compresses. penile edema - elevate, follow acute on chronic pain on continuous narcotics - restarted on high dose home PO narcotics with associated worsening somnolence and hypotension on fentanyl a-fib s/p failed cardioversion, most recent ECG with sinus rhythm - amiodarone - rate controlled QT: follow daily w levoflox and amiodarone acute on chronic resp failure/COPD -reintubated now post operatively - baseline O2 2-4L TPN--advanced diet but only taking minimal amounts, will continue tpn for now ppx: started on HSC yesterday, given recurrent bleed stopped high risk, multiple active medical problems and tenuous status, moved back to ICU Subjective: critically ill. case d/w giselle celaya, [place]. ekg w normal Qt interval (interp by me. taken emergently to OR last evening w fidings of very large RP hematoma Objective: Vital Signs Temp Pulse Resp BP Pulse Ox 35.9 C L 106 H 24 H 107/51 L 99 04/27/17 08:00 04/27/17 12:03 04/27/17 12:03 04/27/17 08:00 04/27/17 12:03 Microbiology 04/24/17 14:50 Gram Stain - Final Other - Other Laboratory Results 04/27/17 13:30 04/27/17 10:30 04/26/17 04/27/17 04/28/17 05:59 05:59 05:59 Intake Total 2909 5035.6 950 Output Total 440 1755 1270 Balance 2469 3280.6 -320 PT 17.6 SEC (12.0-15.0) H 04/27/17 13:30 INR 1.45 (0.83-1.16) H 04/27/17 13:30 - Physical Exam Constitutional: other (intubated, sedated) Eyes: PERRL Ears, Nose, Mouth, Throat: moist mucous membranes, hearing normal Cardiovascular: regular rate and rhythym, no murmur, rub, or gallop, tachycardia Respiratory: no respiratory distress, No no rales or rhonchi Gastrointestinal: other (wound vac, open abdomen) Genitourinary: ferguson in urethra Skin: warm, normal color Musculoskeletal: No full muscle strength Neurologic: No AAOx3 Psychiatric: No interacting appropriately ICD10 Worksheet Patient Problems: Problems Problem Status Onset Acute exacerbation of congestive heart failure Acute Atrial fibrillation with rapid ventricular response Acute DM type 1 (diabetes mellitus, type 1) Acute Perforated bowel Acute Renal failure Acute Altered mental status Acute Aspiration pneumonia Acute COPD (chronic obstructive pulmonary disease) Acute Lumbosacral radiculopathy at L5 Acute Narcotic dependency, continuous Acute Severe sepsis with septic shock Acute Spinal stenosis, lumbar Acute Tobacco dependence Acute
--- NOTE | 2017-04-27 16:06 | GOP ---
[f rep st] OPERATIVE REPORT DATE OF OPERATION: 04/26/2017 SURGEON: Venkatesh Avendaño MD COLD ROLL INSPECTOR: Noe Lee MD and Khadra Tong PA-C. ANESTHESIA: General endotracheal. ANESTHESIOLOGIST: Renard Maguire MD PREOPERATIVE DIAGNOSIS: Sepsis with increasing abdominal distention. POSTOPERATIVE DIAGNOSIS: Possible abdominal compartment syndrome. PROCEDURE PERFORMED: Exploratory laparotomy, washout with open abdomen. FINDINGS: diffusely dilated small bowel and colon. No abscesses identified, both anastomoses were interrogated and were intact without leak. Several small serous fluid collections but nothing grossly alarming in terms of contamination. SPECIMENS: None. ESTIMATED BLOOD LOSS: 20 cc. DESCRIPTION OF PROCEDURE: The patient was transported from the floor to the preoperative suite. He was obtunded, consent was obtained via his POA, daughter. He was taken to the operating room. A Clopt-Htyurn-Zhbijualewbv Time out was performed. After successful induction of general anesthesia, his abdomen was prepped and draped in typical sterile fashion. I entered the abdomen via his previous midline incision taking care not to injure the underlying dilated small bowel. He had multiple adhesive bands throughout the belly, as he had recently been operated on. I successfully lysed all these adhesions, which took over an hour and a half. Once lysed, I inspected both my enteroenteric and enterocolonic anastomoses, both of which appeared to be completely intact and without leak. I identified no abscesses or kelsy purulence within the patient's abdomen. He did have some serous fluid within the small bowel loops, but I identified nothing that was concerning. I irrigated the abdomen out with 2 liters sterile saline. Given the large colonic and small bowel distention, I felt it was not safe to close him as I felt there was a component of abdominal compartment syndrome contributing to his septic, hypotensive state. I placed the ABThera open abdomen device and placed it to suction. He was left intubated and transported back to the intensive care unit in critical condition. DRAINS: ABThera open abdomen. /[id number]/MODL MTDD
--- NOTE | 2017-04-27 16:06 | GOP ---
[f rep st] OPERATIVE REPORT DATE OF OPERATION: 04/26/2017 SURGEON: Venkatesh Avendaño MD NYLON HOT WIRE CUTTER: Noe Lee MD and Khadra Tong PA-C. ANESTHESIA: General endotracheal. ANESTHESIOLOGIST: Renard Maguire MD PREOPERATIVE DIAGNOSIS: Sepsis with increasing abdominal distention. POSTOPERATIVE DIAGNOSIS: Possible abdominal compartment syndrome. PROCEDURE PERFORMED: Exploratory laparotomy, washout with open abdomen. FINDINGS: diffusely dilated small bowel and colon. No abscesses identified, both anastomoses were interrogated and were intact without leak. Several small serous fluid collections but nothing grossly alarming in terms of contamination. SPECIMENS: None. ESTIMATED BLOOD LOSS: 20 cc. DESCRIPTION OF PROCEDURE: The patient was transported from the floor to the preoperative suite. He was obtunded, consent was obtained via his POA, daughter. He was taken to the operating room. A Xslob-Xdulnj-Jgjlynlrgrwe Time out was performed. After successful induction of general anesthesia, his abdomen was prepped and draped in typical sterile fashion. I entered the abdomen via his previous midline incision taking care not to injure the underlying dilated small bowel. He had multiple adhesive bands throughout the belly, as he had recently been operated on. I successfully lysed all these adhesions, which took over an hour and a half. Once lysed, I inspected both my enteroenteric and enterocolonic anastomoses, both of which appeared to be completely intact and without leak. I identified no abscesses or kelsy purulence within the patient's abdomen. He did have some serous fluid within the small bowel loops, but I identified nothing that was concerning. I irrigated the abdomen out with 2 liters sterile saline. Given the large colonic and small bowel distention, I felt it was not safe to close him as I felt there was a component of abdominal compartment syndrome contributing to his septic, hypotensive state. I placed the ABThera open abdomen device and placed it to suction. He was left intubated and transported back to the intensive care unit in critical condition. DRAINS: ABThera open abdomen. /[id number]/MODL MTDD
--- NOTE | 2017-04-27 16:06 | GOP ---
[f rep st] OPERATIVE REPORT DATE OF OPERATION: 04/26/2017 SURGEON: Venkatesh Avendaño MD SYNCHRO ASSEMBLER: Noe Lee MD and Khadra Tong PA-C. ANESTHESIA: General endotracheal. ANESTHESIOLOGIST: Renard Maguire MD PREOPERATIVE DIAGNOSIS: Sepsis with increasing abdominal distention. POSTOPERATIVE DIAGNOSIS: Possible abdominal compartment syndrome. PROCEDURE PERFORMED: Exploratory laparotomy, washout with open abdomen. FINDINGS: diffusely dilated small bowel and colon. No abscesses identified, both anastomoses were interrogated and were intact without leak. Several small serous fluid collections but nothing grossly alarming in terms of contamination. SPECIMENS: None. ESTIMATED BLOOD LOSS: 20 cc. DESCRIPTION OF PROCEDURE: The patient was transported from the floor to the preoperative suite. He was obtunded, consent was obtained via his POA, daughter. He was taken to the operating room. A Tkanh-Iavgwq-Lpdejqvummqz Time out was performed. After successful induction of general anesthesia, his abdomen was prepped and draped in typical sterile fashion. I entered the abdomen via his previous midline incision taking care not to injure the underlying dilated small bowel. He had multiple adhesive bands throughout the belly, as he had recently been operated on. I successfully lysed all these adhesions, which took over an hour and a half. Once lysed, I inspected both my enteroenteric and enterocolonic anastomoses, both of which appeared to be completely intact and without leak. I identified no abscesses or kelsy purulence within the patient's abdomen. He did have some serous fluid within the small bowel loops, but I identified nothing that was concerning. I irrigated the abdomen out with 2 liters sterile saline. Given the large colonic and small bowel distention, I felt it was not safe to close him as I felt there was a component of abdominal compartment syndrome contributing to his septic, hypotensive state. I placed the ABThera open abdomen device and placed it to suction. He was left intubated and transported back to the intensive care unit in critical condition. DRAINS: ABThera open abdomen. /[id number]/MODL MTDD
--- NOTE | 2017-04-27 16:42 | ASMTCMCOM ---
CM Note CM Note Notes: Met with daughter with detail assemblerDr. Maicol Frederick and myself. Emotional support provided. She is able to verbalize understanding of her fathers clinical status. She states she does not want active CPR in the setting of sudden arrest with the understanding that extensive supportive measure are currently in place as it stands now. She is encouraged to speak to family members and is open to discussions regarding palliative/hospice care. CM to follow. Date Signed: 04/27/2017 04:42 PM Electronically Signed By:Jessica Lema RN
--- NOTE | 2017-04-27 16:42 | ASMTCMCOM ---
CM Note CM Note Notes: Met with daughter with mental health advanced practice nurseDr. Maicol Frederick and myself. Emotional support provided. She is able to verbalize understanding of her fathers clinical status. She states she does not want active CPR in the setting of sudden arrest with the understanding that extensive supportive measure are currently in place as it stands now. She is encouraged to speak to family members and is open to discussions regarding palliative/hospice care. CM to follow. Date Signed: 04/27/2017 04:42 PM Electronically Signed By:Jessica Lema RN
--- NOTE | 2017-04-27 16:42 | ASMTCMCOM ---
CM Note CM Note Notes: Met with daughter with aerospace physiological technicianDr. Maicol Frederick and myself. Emotional support provided. She is able to verbalize understanding of her fathers clinical status. She states she does not want active CPR in the setting of sudden arrest with the understanding that extensive supportive measure are currently in place as it stands now. She is encouraged to speak to family members and is open to discussions regarding palliative/hospice care. CM to follow. Date Signed: 04/27/2017 04:42 PM Electronically Signed By:Jessica Lema RN
[2017-04-27 17:49] LABS: PLATELET COUNT 95 10^3/uL (150-400)
[2017-04-27 17:58] LABS: INR 1.48 (0.83-1.16); PROTIME(PATIENT) 17.9 SEC (12.0-15.0)
--- NOTE | 2017-04-27 18:00 | GOP ---
[f rep st] OPERATIVE REPORT DATE OF OPERATION: 04/27/2017 SURGEON: Venkatesh Avendaño MD AIRCRAFT SYSTEMS REPAIRER: None. ANESTHESIA: Local with IV sedation. PREOPERATIVE DIAGNOSIS: Right pleural effusion. POSTOPERATIVE DIAGNOSIS: Right pleural effusion. PROCEDURE PERFORMED: Right chest tube thoracostomy placement. FINDINGS: Large amount of serous fluid. No blood. Good expansion of the lung. SPECIMENS: None. ESTIMATED BLOOD LOSS: 5 cc. DESCRIPTION OF PROCEDURE: Consent was obtained via the patient's daughter as he is obtunded. Prior to proceeding, a WHO time-out was performed using 2 patient identifiers. Right chest was prepped and draped in typical sterile fashion. I anesthetized the approximate 6th intercostal space with 1% local. After successful anesthetization, I carried an incision through the subcutaneous tissue where I encountered the rib space. I successfully entered the chest cavity bluntly, through which I placed a 28-Guyanese straight chest tube into the chest and obtained 600 cc of straw serous fluid into the Pleur- evac. It was attached to the skin with an interrupted silk suture. Sterile dressing was placed. The patient tolerated the procedure well without any complications. DRAINS: 28-Guyanese straight chest tube to the right chest. /[id number]/MODL MTDD
--- NOTE | 2017-04-27 18:00 | GOP ---
[f rep st] OPERATIVE REPORT DATE OF OPERATION: 04/27/2017 SURGEON: Venkatesh Avendaño MD NETWORK SECURITY OFFICER: None. ANESTHESIA: Local with IV sedation. PREOPERATIVE DIAGNOSIS: Right pleural effusion. POSTOPERATIVE DIAGNOSIS: Right pleural effusion. PROCEDURE PERFORMED: Right chest tube thoracostomy placement. FINDINGS: Large amount of serous fluid. No blood. Good expansion of the lung. SPECIMENS: None. ESTIMATED BLOOD LOSS: 5 cc. DESCRIPTION OF PROCEDURE: Consent was obtained via the patient's daughter as he is obtunded. Prior to proceeding, a WHO time-out was performed using 2 patient identifiers. Right chest was prepped and draped in typical sterile fashion. I anesthetized the approximate 6th intercostal space with 1% local. After successful anesthetization, I carried an incision through the subcutaneous tissue where I encountered the rib space. I successfully entered the chest cavity bluntly, through which I placed a 28-Iranian straight chest tube into the chest and obtained 600 cc of straw serous fluid into the Pleur- evac. It was attached to the skin with an interrupted silk suture. Sterile dressing was placed. The patient tolerated the procedure well without any complications. DRAINS: 28-Iranian straight chest tube to the right chest. /[id number]/MODL MTDD
--- NOTE | 2017-04-27 18:00 | GOP ---
[f rep st] OPERATIVE REPORT DATE OF OPERATION: 04/27/2017 SURGEON: Venkatesh Avendaño MD MIDDLEWARE ENGINEER: None. ANESTHESIA: Local with IV sedation. PREOPERATIVE DIAGNOSIS: Right pleural effusion. POSTOPERATIVE DIAGNOSIS: Right pleural effusion. PROCEDURE PERFORMED: Right chest tube thoracostomy placement. FINDINGS: Large amount of serous fluid. No blood. Good expansion of the lung. SPECIMENS: None. ESTIMATED BLOOD LOSS: 5 cc. DESCRIPTION OF PROCEDURE: Consent was obtained via the patient's daughter as he is obtunded. Prior to proceeding, a WHO time-out was performed using 2 patient identifiers. Right chest was prepped and draped in typical sterile fashion. I anesthetized the approximate 6th intercostal space with 1% local. After successful anesthetization, I carried an incision through the subcutaneous tissue where I encountered the rib space. I successfully entered the chest cavity bluntly, through which I placed a 28-Grenadian straight chest tube into the chest and obtained 600 cc of straw serous fluid into the Pleur- evac. It was attached to the skin with an interrupted silk suture. Sterile dressing was placed. The patient tolerated the procedure well without any complications. DRAINS: 28-Grenadian straight chest tube to the right chest. /[id number]/MODL MTDD
--- NOTE | 2017-04-27 18:06 | GOP ---
[f rep st] OPERATIVE REPORT DATE OF OPERATION: 04/27/2017 SURGEON: Venkatesh Avendaño MD DISBURSING AGENT: None. ANESTHESIA: Local. PREOPERATIVE DIAGNOSIS: Hypotension and need for fluids and medications. POSTOPERATIVE DIAGNOSIS: Hypotension and need for fluids and medications. PROCEDURE PERFORMED: Ultrasound-guided left internal jugular central venous catheter placement. FINDINGS: Successful placement of a triple-lumen central venous catheter into the left internal jugu lar vein. Postoperative chest x-ray showed adequate placement without complication. SPECIMENS: None. ESTIMATED BLOOD LOSS: 2 cc. DESCRIPTION OF PROCEDURE: The patient was greeted in the intensive care unit. Consent was obtained via his daughter. A world Health Organization time-out was performed. The left neck was then preppe d and draped in typical sterile fashion. I identified the left internal jugular vein with the ultras ound guidance. I successfully anesthetized the muscle overlying it. I successfully cannulated the l eft internal jugular vein, through which my guidewire was passed without issue. I serially dilated a nd successfully placed the catheter within the left internal jugular vein to the area of the atrial c aval junction. It was attached to the skin using an interrupted silk suture. A Biopatch and sterile dressing were placed. Postoperative chest x-ray showed adequate placement without complication. DRAINS: None. /[id number]/MODL
--- NOTE | 2017-04-27 18:06 | GOP ---
[f rep st] OPERATIVE REPORT DATE OF OPERATION: 04/27/2017 SURGEON: Venkatesh Avendaño MD APPEALS ASSISTANT: None. ANESTHESIA: Local. PREOPERATIVE DIAGNOSIS: Hypotension and need for fluids and medications. POSTOPERATIVE DIAGNOSIS: Hypotension and need for fluids and medications. PROCEDURE PERFORMED: Ultrasound-guided left internal jugular central venous catheter placement. FINDINGS: Successful placement of a triple-lumen central venous catheter into the left internal jugu lar vein. Postoperative chest x-ray showed adequate placement without complication. SPECIMENS: None. ESTIMATED BLOOD LOSS: 2 cc. DESCRIPTION OF PROCEDURE: The patient was greeted in the intensive care unit. Consent was obtained via his daughter. A world Health Organization time-out was performed. The left neck was then preppe d and draped in typical sterile fashion. I identified the left internal jugular vein with the ultras ound guidance. I successfully anesthetized the muscle overlying it. I successfully cannulated the l eft internal jugular vein, through which my guidewire was passed without issue. I serially dilated a nd successfully placed the catheter within the left internal jugular vein to the area of the atrial c aval junction. It was attached to the skin using an interrupted silk suture. A Biopatch and sterile dressing were placed. Postoperative chest x-ray showed adequate placement without complication. DRAINS: None. /[id number]/MODL
--- NOTE | 2017-04-27 18:06 | GOP ---
[f rep st] OPERATIVE REPORT DATE OF OPERATION: 04/27/2017 SURGEON: Venkatesh Avendaño MD JAVA DEVELOPER CONSULTANT: None. ANESTHESIA: Local. PREOPERATIVE DIAGNOSIS: Hypotension and need for fluids and medications. POSTOPERATIVE DIAGNOSIS: Hypotension and need for fluids and medications. PROCEDURE PERFORMED: Ultrasound-guided left internal jugular central venous catheter placement. FINDINGS: Successful placement of a triple-lumen central venous catheter into the left internal jugu lar vein. Postoperative chest x-ray showed adequate placement without complication. SPECIMENS: None. ESTIMATED BLOOD LOSS: 2 cc. DESCRIPTION OF PROCEDURE: The patient was greeted in the intensive care unit. Consent was obtained via his daughter. A world Health Organization time-out was performed. The left neck was then preppe d and draped in typical sterile fashion. I identified the left internal jugular vein with the ultras ound guidance. I successfully anesthetized the muscle overlying it. I successfully cannulated the l eft internal jugular vein, through which my guidewire was passed without issue. I serially dilated a nd successfully placed the catheter within the left internal jugular vein to the area of the atrial c aval junction. It was attached to the skin using an interrupted silk suture. A Biopatch and sterile dressing were placed. Postoperative chest x-ray showed adequate placement without complication. DRAINS: None. /[id number]/MODL
[2017-04-27] MEDS: TPN W/ FAMOTIDINE 1 EA BAG IV SCH (20:06)
[2017-04-28 00:04] LABS: PLATELET COUNT 121 10^3/uL (150-400)
[2017-04-28 00:10] LABS: INR 1.5 (0.83-1.16); PROTIME(PATIENT) 18.1 SEC (12.0-15.0)
[2017-04-28] MEDS: PREGABALIN 75 MG CAP PO SCH ×4 (00:23→23:23)
[2017-04-28] MEDS: INSULIN REGULAR HUMAN 100 UNIT/ML SC SCH ×4 (00:24→18:00)
[2017-04-28] MEDS: ALBUTEROL 200 PUFFS/18 GM MDI IH SCH ×5 (04:15→20:47)
[2017-04-28 06:04] LABS: PLATELET COUNT 109 10^3/uL (150-400)
[2017-04-28] MEDS: SODIUM BICARBONATE 100 MEQ in D5W 1,000 ML IV SCH (06:04)
[2017-04-28] MEDS: fentaNYL/NACL 100 ML IV SCH ×4 (06:05→23:22)
[2017-04-28 06:43] LABS: INR 1.37 (0.83-1.16); PROTIME(PATIENT) 16.9 SEC (12.0-15.0)
[2017-04-28] MEDS ORDERED: CALCIUM GLUCONATE 2 GM in D5W 50 ML IV ONE (06:44)
[2017-04-28] MEDS ORDERED: PROTOCOL POTASSIUM 1 DOSE MISC PRN (06:45)
[2017-04-28] MEDS ORDERED: PROTOCOL CALCIUM 1 DOSE IV PRN (06:45)
[2017-04-28] MEDS ORDERED: PROTOCOL K PHOSPHATE 1 DOSE IV PRN (06:45)
[2017-04-28] MEDS ORDERED: PROTOCOL MAGNESIUM 1 DOSE IV PRN (06:45)
--- NOTE | 2017-04-28 06:46 | CPEKG ---
Heart Rate: 90 RR Interval: 667 P-R Interval: 164 QRSD Interval: 88 QT Interval: 338 QTC Interval: 414 P [place]: 15 QRS [place]: 48 T Wave [place]: 3 EKG Severity - BORDERLINE ECG - EKG Impression: SINUS RHYTHM EKG Impression: LOW VOLTAGE IN FRONTAL LEADS EKG Impression: BORDERLINE T ABNORMALITIES, ANTERIOR LEADS EKG Impression: non sustained atrial tachycardia Electronically Signed By: Raciel Pelayo 28-Apr-2017 09:11:56
--- NOTE | 2017-04-28 06:46 | CPEKG ---
Heart Rate: 90 RR Interval: 667 P-R Interval: 164 QRSD Interval: 88 QT Interval: 338 QTC Interval: 414 P [place]: 15 QRS [place]: 48 T Wave [place]: 3 EKG Severity - BORDERLINE ECG - EKG Impression: SINUS RHYTHM EKG Impression: LOW VOLTAGE IN FRONTAL LEADS EKG Impression: BORDERLINE T ABNORMALITIES, ANTERIOR LEADS EKG Impression: non sustained atrial tachycardia Electronically Signed By: Raciel Pelayo 28-Apr-2017 09:11:56
[2017-04-28] MEDS: CHLORHEXIDINE GLUCONATE 15 ML UDL PO SCH ×2 (08:00→20:00)
[2017-04-28] MEDS: AMIODARONE HCL 200 ML IV SCH ×2 (08:31→20:11)
--- NOTE | 2017-04-28 09:00 | PDINTPN ---
Grommet Worker Progress Note Assessment/Plan: Assessment/Plan: * Acute respiratory failure-stable on mechanical ventilation. Oxygen requirements improved. -will check CPAP trial and weaning parameters -will discuss with surgery about timing for extubation * Large right pleural effusion-chest tube placed. * Severe anemia-appears to have stabilized * Shock-likely hypovolemic. Improved -continue transfusions, crystalloids and colloids -wean pressors as tolerated * Status post exploratory laparotomy * Sedation-adequate * Hypokalemia-replace * COPD * Prostate cancer * Chronic back pain * With stress ulcer prophylaxis * VTE prophylaxis * Prognosis-guarded 35 minutes of critical care time spent with patient Case discussed with respiratory therapy and nursing Subjective: Awake opens eyes following simple commands. Objective: Vital Signs Temp Pulse Resp BP Pulse Ox 36.6 C 73 24 H 97/79 L 99 04/28/17 08:00 04/28/17 08:00 04/28/17 08:00 04/28/17 08:00 04/28/17 08:00 Microbiology 04/24/17 14:50 Gram Stain - Final Other - Other Laboratory Results 04/28/17 06:00 04/28/17 06:00 04/27/17 04/28/17 04/29/17 05:59 05:59 05:59 Intake Total 5035.6 5342 Output Total 1755 5560 200 Balance 3280.6 -218 -200 PT 16.9 SEC (12.0-15.0) H 04/28/17 06:00 INR 1.37 (0.83-1.16) H 04/28/17 06:00 Laboratory Results 04/28/17 06:00 04/28/17 06:00 04/28/17 04/28/17 04/28/17 06:00 06:00 06:00 PT 16.9 SEC H SEC (12.0 - 15.0) INR 1.37 H (0.83 - 1.16) Patient Temperature 37.0 DEGREES DEGREES pCO2 19 mmHg L* mmHg (34 - 38) pO2 155 mmHg H mmHg (65 - 75) Total CO2 12 mEq/L L mEq/L (23 - 27) ABG pH 7.38 (7.35 - 7.45) ABG HCO3 11 mEq/L L mEq/L (22 - 26) ABG O2 Saturation 99 % H % (92 - 95) ABG Base Excess -13.2 mEq/L L mEq/L (-2.5 - 2.5) Calcium Phosphorus 3.2 mg/dL D mg/dL (2.5 - 4.5) Magnesium 1.3 mg/dL L mg/dL (1.6 - 2.3) 04/28/17 06:00 PT INR Patient Temperature pCO2 pO2 Total CO2 ABG pH ABG HCO3 ABG O2 Saturation ABG Base Excess Calcium 3.7 mg/dL L* D mg/dL (8.5 - 10.4) Phosphorus Magnesium Chest [id number] by myself. Endotracheal tube in good position. Chest tube in good position. There is cardiomegaly present. Diffuse pulmonary edema. Physical Exam - Physical Exam General Appearance: alert, obese EENT: PERRL/EOMI, ET tube Neck: non-tender, full range of motion Respiratory: respiratory distress (Scattered right greater than left), No accessory muscle use, No wheezing Cardiac/Chest: systolic murmur Abdomen: distended Male Genitalia: deferred Rectal: deferred Skin: normal color, warm/dry Extremities: normal range of motion, non-tender, normal inspection, normal capillary refill ICD10 Worksheet Patient Problems: Problems Problem Status Onset Acute exacerbation of congestive heart failure Acute Atrial fibrillation with rapid ventricular response Acute DM type 1 (diabetes mellitus, type 1) Acute Perforated bowel Acute Renal failure Acute Altered mental status Acute Aspiration pneumonia Acute COPD (chronic obstructive pulmonary disease) Acute Lumbosacral radiculopathy at L5 Acute Narcotic dependency, continuous Acute Severe sepsis with septic shock Acute Spinal stenosis, lumbar Acute Tobacco dependence Acute
--- NOTE | 2017-04-28 09:26 | HOSPPROG ---
Hospitalist Progress Note Assessment/Plan: 72 yo M with PMH of copd, chronic resp failure pw septic shock/polymicrobial bacteremia in setting of bowel perforation septic shock: off pressors cvp up to 16-17 follow pulm edema: appears to be mobilizing fluid will dose lasix prn acute blood loss anemia: source is RP bleed and R pleural effusion has received 15 units toal packed red cells this week hct OK this AM hypocalcemia: check stat iCa ?DIC: fibrinogen normal modestly elevated INR noted follow daily ID concerned about potential for qualitative platelet dysfunction polymicrobial bacteremia d/t staph epi and bacteroides - repeat BCx from 04/20 with ngtd; ID following, on levoflagyl small bowel perforation with gross peritonitis 2/2 incarcerated/strangulated necrotic cecum - s/p re-anastamosis/fascial closure and wound vac placement and now repeat ex lap on 04/26--abdomen left open for now -see above yolanda: much improved today suspect acidosis will improve w improving renal function hypotension - continued and seems to be affected significantly by pain medications--query if pain meds are accumulating, particularly morphine which has been leading to worsening hypotension and somnolence. Holding morphine and monitoring, headed to ICU as will likely need pressor support. volume overload/acute diastolic CHF - had been up 7kg and per records up another 8kg overnight (? error), does appear volume overloaded though query intravascularly dry given yolanda as above. Holding diuresis for hypotension and YOLANDA. bloody wound vac output - resolved superficial thrombus LUE: without dvt, holding AC for now given recent bleed and ongoing oozing and need for repeat procedure. Warm compresses. penile edema - elevate, follow acute on chronic pain on continuous narcotics on fentanyl a-fib s/p failed cardioversion, most recent ECG with sinus rhythm - amiodarone - rate controlled QT: follow daily w levoflox and amiodarone OK Qt 04/28 code: dnr as of yesterday acute on chronic resp failure/COPD -reintubated now post operatively - baseline O2 2-4L TPN--advanced diet but only taking minimal amounts, will continue tpn for now ppx: started on HSC yesterday, given recurrent bleed stopped high risk, multiple active medical problems and tenuous status, moved back to ICU Subjective: case d/w dr sharp. off pressors. Qt normal on today's ekg ( interp by me). cxr w pulm edema (interp by me) Objective: Vital Signs Temp Pulse Resp BP Pulse Ox 36.6 C 73 24 H 97/79 L 99 04/28/17 08:00 04/28/17 08:00 04/28/17 08:00 04/28/17 08:00 04/28/17 08:00 Microbiology 04/24/17 14:50 Gram Stain - Final Other - Other Laboratory Results 04/28/17 06:00 04/28/17 06:00 04/27/17 04/28/17 04/29/17 05:59 05:59 05:59 Intake Total 5035.6 5342 Output Total 1755 5560 200 Balance 3280.6 -218 -200 PT 16.9 SEC (12.0-15.0) H 04/28/17 06:00 INR 1.37 (0.83-1.16) H 04/28/17 06:00 - Physical Exam Constitutional: other (intubated, sedated) Eyes: PERRL, anicteric sclera Ears, Nose, Mouth, Throat: moist mucous membranes, hearing normal Cardiovascular: no murmur, rub, or gallop, irregularly irregular Respiratory: inspiratory crackles Gastrointestinal: other (absent bowel sounds. open abdomen w wound vac), No normoactive bowel sounds Genitourinary: ferguson in urethra Skin: warm, normal color Musculoskeletal: No full muscle strength Neurologic: No AAOx3 Psychiatric: not anxious, No interacting appropriately ICD10 Worksheet Patient Problems: Problems Problem Status Onset Acute exacerbation of congestive heart failure Acute Atrial fibrillation with rapid ventricular response Acute DM type 1 (diabetes mellitus, type 1) Acute Perforated bowel Acute Renal failure Acute Altered mental status Acute Aspiration pneumonia Acute COPD (chronic obstructive pulmonary disease) Acute Lumbosacral radiculopathy at L5 Acute Narcotic dependency, continuous Acute Severe sepsis with septic shock Acute Spinal stenosis, lumbar Acute Tobacco dependence Acute
[2017-04-28] MEDS ORDERED: MAGNESIUM SULF 2 GM/WATER 50 ML IV ONE (09:30)
[2017-04-28] MEDS ORDERED: POTASSIUM Cl (KCl) 50 ML IV SCH (09:45)
[2017-04-28] MEDS: POTASSIUM Cl (KCl) 20 MEQ in D5W 50 ML IV SCH ×2 (10:16→10:17)
[2017-04-28] MEDS ORDERED: LORazepam 2 MG/ML INJ ONE (10:27)
[2017-04-28] MEDS ORDERED: BUPIVACAINE 0.5% 30 ML SDV ONE (10:28)
[2017-04-28] MEDS: NICOTINE 21 MG/24 HR PATCH TD SCH (10:43)
[2017-04-28] MEDS ORDERED: LORazepam 2 MG/ML INJ IVP ONE (10:45)
[2017-04-28] MEDS ORDERED: FUROSEMIDE 40 MG/4 ML VIAL IVP ONE (10:52)
--- NOTE | 2017-04-28 11:29 | PCMIDPN ---
Assessment/Plan: Assessment: Septic shock secondary to peritonitis after incarcerated cecum became necrotic. Patient improved in the interim but then decline secondary to bleeding intra- abdominally from an unknown source. Will go back to the OR today. Patient remains on Levaquin and Flagyl. Will continue this regimen and follow results postoperatively. Plan: 1. Continue Levaquin and Flagyl. 2. Follow-up clinical course after surgery. 04/28/17 11:29 Subjective: Patient remains in the ICU. He is intubated and sedated. He continues to bleed from KAREN drain on the left side. Anterior abdominal incision is open. He has a wound VAC intact. Objective: Levaquin # 2 Flagyl # 1 Vital Signs Temp Pulse Resp BP Pulse Ox 36.6 C 75 24 H 90/68 L 96 04/28/17 10:54 04/28/17 11:00 04/28/17 11:00 04/28/17 11:00 04/28/17 11:00 Microbiology 04/24/17 14:50 Gram Stain - Final Other - Other Laboratory Results 04/28/17 06:00 04/28/17 06:00 04/27/17 04/28/17 04/29/17 05:59 05:59 05:59 Intake Total 5035.6 5342 Output Total 1755 5560 500 Balance 3280.6 -218 -500 - Physical Exam General Appearance: WD/WN, non-toxic, No alert Respiratory: lungs clear, normal breath sounds, No respiratory distress Cardiac/Chest: regular rate, rhythm, No bradycardia, No tachycardia, No irregularly irregular Abdomen: soft, distended, other (Wound VAC anterior abdomen left side; KAREN drain with bloody discharge left side), No mass Skin: normal color, warm/dry, No rash ICD10 Worksheet Patient Problems: Problems Problem Status Onset Acute exacerbation of congestive heart failure Acute Atrial fibrillation with rapid ventricular response Acute DM type 1 (diabetes mellitus, type 1) Acute Perforated bowel Acute Renal failure Acute Altered mental status Acute Aspiration pneumonia Acute COPD (chronic obstructive pulmonary disease) Acute Lumbosacral radiculopathy at L5 Acute Narcotic dependency, continuous Acute Severe sepsis with septic shock Acute Spinal stenosis, lumbar Acute Tobacco dependence Acute
--- NOTE | 2017-04-28 12:08 | PDANEPAE ---
ANE History of Present Illness For abdominal packing change, poss closure ANE Past Medical History - Cardiovascular History Hx Hypertension: Yes Hx Arrhythmias: No Hx Chest Pain: No Hx Coronary Artery / Peripheral Vascular Disease: Yes Hx CHF / Valvular Disease: Yes Hx Palpitations: No Cardiovascular History Comment: CAD W/STENT 2005. CHF (R/L HEART FAILURE). HTN. HYPERLIPIDEMIA - Pulmonary History Hx COPD: Yes Hx Asthma/Reactive Airway Disease: No Hx Recent Upper Respiratory Infection: No Hx Oxygen in Use at Home: Yes O2 in Use at Home (L/minute): 2 Hx Sleep Apnea: No Pulmonary History Comment: COPD. NOCTURNAL HYPOXIA, 4L O2 AT HS, RA DURING DAY. Intubated, no sedation, fentanyl for pain - Neurologic History Hx Cerebrovascular Accident: No Hx Seizures: No Hx Dementia: No Neurologic History Comment: DIABETIC NEUROPATHY. GAIT INSTABILITY X 3 MONTHS. LUMBAR BACK PAIN - Endocrine History Hx Diabetes: Yes Endocrine History Comment: HYPERPARATHYROIDISM. NIDDM. NO INSULIN OR ORAL ANTIHYPERGLYCEMICS, MANAGES WITH DIET AND EXERCISE. - Renal History Hx Renal Disorders: No - Liver History Hx Hepatic Disorders: No - Neurological & Psychiatric Hx Hx Neurological and Psychiatric Disorders: Yes Neurological / Psychiatric History Comment: DEPRESSION - Cancer History Hx Cancer: Yes Cancer History Comment: PROSTATE CA 2002 - Congenital Disorder History Hx Congenital Disorders: No - GI History Hx Gastrointestinal Disorders: Yes Gastrointestinal History Comment: OPIOID INDUCED CONSTIPATION. - Other Health History Other Health History: CHRONIC OPIOID USE FOR BACK PAIN, JOINT PAIN. INSOMNIA. VITAMIN D DEFICIENCY - Chronic Pain History Chronic Pain: Yes - Surgical History Prior Surgeries: RETINAL DETACTCHMENT X3, BILAT ROTATOR CUFF REPAIR, BILATERAL FOOT SURGERIES WITH HARDWARE IN TOES, RAD PROSTATECTOMY 2001. ANE Review of Systems Review of Systems: - Exercise capacity Exercise capacity: limited by disability ANE Patient History - Allergies Allergies/Adverse Reactions: No Known Allergies Allergy (Unverified 12/26/10 10:34) - Home Medications Home medications: home medication list seen and reviewed Home Medications: Aspirin EC [Aspirin EC 81 mg (*)] 81 mg PO DAILY 06/06/16 [Last Taken 09/16/16 08:00] Mirtazapine 15 mg PO HS 09/16/16 [Last Taken 09/15/16 20:00] Pregabalin [Lyrica 75mg (*)] 75 mg PO TID 09/16/16 [Last Taken 09/14/16] Aclidinium [place] [Tudorza Pressair] 1 puffs IH Q12 04/12/17 [Last Taken Unknown] Olmesartan Medoxomil [Olmesartan Medoxomil] 5 mg PO DAILY 04/12/17 [Last Taken Unknown] Quetiapine Fumarate [Quetiapine Fumarate] 25 mg PO HS 04/12/17 [Last Taken Unknown] morphINE SR [Ms Contin/Oramorph 100 mg (*)] 100 mg PO TID 04/12/17 [Last Taken Unknown] oxyCODONE IR [Oxycodone Ir (*)] 30 mg PO Q4 PRN 04/12/17 [Last Taken Unknown] - NPO status NPO Since - Liquids (Date): 04/25/17 NPO Since - Solids (Date): 04/25/17 - Smoking Hx Smoking Status: Current every day smoker - Family Anes Hx Family Hx Anesthesia Complications: NEG ANE Labs/Vital Signs - Labs Result Diagrams: 04/28/17 06:00 04/28/17 06:00 - Vital Signs Blood Pressure: 90/68 Heart Rate: 75 Respiratory Rate: 24 O2 Sat (%): 96 Height: 177.8 cm Weight: 111 kg ANE Physical Exam - Airway Mouth exam: ETT in situ - ASA Status ASA Status: IV ANE Anesthesia Plan Anesthesia Plan: general endotracheal anesthesia
[2017-04-28] MEDS ORDERED: POTASSIUM Cl (KCl) 20 MEQ in NS 50 ML IV ONE (12:15)
[2017-04-28] MEDS ORDERED: MIDAZOLAM 2 MG/2 ML VIAL ONE (12:15)
--- NOTE | 2017-04-28 12:29 | SOAPPROG ---
SOAP Progress Note Assessment/Plan: Assessment: 72-YEAR-OLD MALE WITH OPEN ABDOMEN AFTER PERFORATED BOWEL HAD INCARCERATED INGUINAL HERNIA/DOING REASONABLY WELL/STILL ON VENTILATOR/WOUND VAC IN PLACE ABDOMEN RELATIVELY SOFT/AFEBRILE/LAB STABLE CHEST RELATIVELY CLEAR/COR REGULAR RHYTHM Plan: CONSIDER LAPAROTOMY FOR WASHOUT AND POSSIBLE CLOSURE IN THE NEXT 12:48 P.M. FORTY EIGHT HOURS BEFORE EXTUBATION 04/14/17 12:45 04/15/17 12:00 AFEBRILE/VITAL SIGNS STABLE/STILL ON VENT/LARGE NG AND WOUND VAC OUTPUTS/WBC 14 K/ABDOMEN SOFT WITH BOWEL SOUNDS/TOLERATING THE VENTILATOR WELL BEING SO STABLE PLAN ON WOUND VAC CHANGE AND POSSIBLE ABDOMINAL CLOSURE IN THE A.M. UNLESS HIS CONDITION WORSENS OR INCREASING ABDOMINAL PRESSURE 04/15/17 14:33 04/18/17 19:30 AFEBRILE/ VAC IN PLACE AND FUNCTIONING/ WOUND OK/ ABD SOFT/ EPISODE OF LGI BLEED LAST PM BUT NO REPEAT AFTER STOPPING HEPARIN HCT STABLE/ INR 1.6/ PT PULLED HIS NG OUT/ UO GOOD 04/26/17 21:09 CALLED TO SEE PATIENT FOR HYPERTENSION AND BLEEDING FROM THE WOUND VAC/BP RUNNING IN THE 70S AND 80S AND PULSE 100/URINE OUTPUT IS BEEN MINISCULE SINCE HIS SURGERY 4 HOURS AGO/HEMATOCRIT IS DOWN TO 22/WOUND VAC CHANGE WITH A LARGE AMOUNT OF CLOT UNDER THE ABTHERA/CLOT WAS EVACUATED SOME BLOODY FLUID SECTION CLEAR AND THE WOUND VAC AND ABTHERA WAS THEN REPLACED COAGS WERE SENT WITH AN INR 1.9 A PROTIME OF 21 AND A PTT 44 WILL USE K CENTRA AND VITAMIN K/ LAPAROTOMY IF HE CONTINUES TO BLEED ALTHOUGH HE SEEMS TO HAVE A COAGULOPATHY AT PRESENT/HE IS ALSO ON PRESSOR SUPPORT AND HAS BEEN SINCE HIS SURGERY/HE APPARENTLY RECEIVED 4 UNITS OF BLOOD PRIOR TO SURGERY WITH HEMATOCRIT OF 17 THIS MORNING FOR UNKNOWN REASON 04/27/17 08:08 still marginal vs this am with bp 85 on pressors/ uo weak/ labs pending but plts decreased earlier cxr shows large rt effusion and picc line up jugular/ will need new picc and probable rt chest tube or thorascentesis 04/28/17 12:27 VS STABLE/ AFEBRILE/ STIL ON VENT BUT OFF PRESSORS/ ABD STABLE WITH WOUND VAC/ K 3.7/ HCT 25/ WILL PROCEED WITH REMOVAL ABD PACKS AND WASHOUT Objective: Vital Signs Temp Pulse Resp BP Pulse Ox 36.6 C 75 24 H 90/68 L 96 04/28/17 10:54 04/28/17 12:07 04/28/17 12:07 04/28/17 12:07 04/28/17 12:07 Microbiology 04/24/17 14:50 Gram Stain - Final Other - Other Laboratory Results 04/28/17 06:00 04/28/17 06:00 04/27/17 04/28/17 04/29/17 05:59 05:59 05:59 Intake Total 5035.6 5342 Output Total 1755 5560 500 Balance 3280.6 -218 -500 PT 16.9 SEC (12.0-15.0) H 04/28/17 06:00 INR 1.37 (0.83-1.16) H 04/28/17 06:00 ICD10 Worksheet Patient Problems: Problems Problem Status Onset Acute exacerbation of congestive heart failure Acute Atrial fibrillation with rapid ventricular response Acute DM type 1 (diabetes mellitus, type 1) Acute Perforated bowel Acute Renal failure Acute Altered mental status Acute Aspiration pneumonia Acute COPD (chronic obstructive pulmonary disease) Acute Lumbosacral radiculopathy at L5 Acute Narcotic dependency, continuous Acute Severe sepsis with septic shock Acute Spinal stenosis, lumbar Acute Tobacco dependence Acute - ICD10 Problem Qualifiers (1) Perforated bowel
[2017-04-28] MEDS ORDERED: ROCURONIUM 50 MG/5 ML VIAL ONE ×2 (12:42→13:01)
[2017-04-28] MEDS ORDERED: NALOXONE HCL 0.4 MG/ML INJ IVP PRN (13:22)
[2017-04-28] MEDS ORDERED: fentaNYL 100 MCG/2 ML INJ IVP PRN (13:22)
[2017-04-28] MEDS ORDERED: MEPERIDINE 25 MG/ML SYR IVP PRN (13:22)
--- NOTE | 2017-04-28 13:25 | POSTANESTH ---
Post Anesthetic Evaluation Cardiovascular Status: Similar to Pre-Op Cond Respiratory Status: Similar to Pre-op Cond. Level of Consciousness/Mental Status: Unconscious Pain Control: Adequate, Prn Tx Ordered Nausea/Vomiting Control: Adequate, Prn Tx Ordered
[2017-04-28] MEDS ORDERED: PROPOFOL 200 MG/20 ML VIAL ONE (13:26)
--- NOTE | 2017-04-28 13:34 | SOAPPROG ---
SOAP Progress Note Assessment/Plan: Assessment: 1.) Consumptive Coagulopathy with large volume blood, including plasma loss into Retroperitoneal space, abdominal and chest cavity. Explor Lap with "clean out" today. He looks stable today. 2.) Polymicrobial sepsis. 3.) Anemia- multifactorial. I have ordered stat Haptoglobin to rule out significant hemolysis. Doubt that patient has clinically significant hemolysis in addition to intra-cavitary blood loss. 4.) Hypotension 5.) Respiratory failure with COPD/hypoxemia 6.) Type II DM 7.) Hyperlipidemia 8.) Strangulated small bowel in [facility], S/P surgical repair complicated by small intestine perf/peritonitis from cecal perf. 9.) Afib 10.) Peripheral Arterial insuff. 11.) Acute Renal Insuff. 12.) Hx. of prostate cancer 13.) LUE superficial thrombus 14.) Recent septic shock 15.) Chronic back pain/chronic narcotic use 16.) No known chronic or acute Hemostatic disorder notable aside from Consumptive Coagulopathy as described above. Plan: 04/28/17 13:31 Subjective: 72 yo with complicated cecal necrosis from incarcerated hernia with sepsis and coagulopathy from sepsis and massive bleeding. He is going back to OR today Objective: Vital Signs Temp Pulse Resp BP Pulse Ox 36.6 C 75 24 H 90/68 L 96 04/28/17 10:54 04/28/17 12:07 04/28/17 12:07 04/28/17 12:07 04/28/17 12:07 Microbiology 04/24/17 14:50 Gram Stain - Final Other - Other Laboratory Results 04/28/17 06:00 04/28/17 06:00 04/27/17 04/28/17 04/29/17 05:59 05:59 05:59 Intake Total 5035.6 5342 Output Total 1755 5560 775 Balance 3280.6 -218 -775 PT 16.9 SEC (12.0-15.0) H 04/28/17 06:00 INR 1.37 (0.83-1.16) H 04/28/17 06:00 ICD10 Worksheet Patient Problems: Problems Problem Status Onset Renal failure Acute Tobacco dependence Acute Narcotic dependency, continuous Acute Lumbosacral radiculopathy at L5 Acute Spinal stenosis, lumbar Acute DM type 1 (diabetes mellitus, type 1) Acute Aspiration pneumonia Acute COPD (chronic obstructive pulmonary disease) Acute Severe sepsis with septic shock Acute Altered mental status Acute Acute exacerbation of congestive heart failure Acute Atrial fibrillation with rapid ventricular response Acute Perforated bowel Acute
--- NOTE | 2017-04-28 13:47 | POSTOPPROG ---
Post Op Note Date of Operation: 04/28/17 Surgeon: Noe Lee Anesthesiologist: garrett Anesthesia: GET(General Endotracheal) Pre-op Diagnosis: retroperitoneal hematoma Post-op Diagnosis: same Indication: pack removal Procedure: laparotomy and pack removal with lavage and fascial closure Findings: no fresh bleeding/ tolerated abd closure on vent Inf/Abcess present in the surg proc area at time of surgery?: Yes Depth: Organ Space EBL: Minimal Complications: 0 Drains: Baldo Patel
[2017-04-28] MEDS: COLLAGENASE 30 GM OINTMENT TP SCH (14:54)
[2017-04-28 18:09] LABS: INR 1.55 (0.83-1.16); PROTIME(PATIENT) 18.6 SEC (12.0-15.0)
[2017-04-28] MEDS: POTASSIUM Cl (KCl) 50 ML IV SCH ×3 (18:26→20:11)
[2017-04-28] MEDS: TPN W/ FAMOTIDINE 1 EA BAG IV SCH (20:12)
[2017-04-28] MEDS ORDERED: PHYTONADIONE 5 MG in NS 50 ML IV ONE (22:30)
[2017-04-28] MEDS: PROPOFOL/EMULSION 100 ML IV SCH (23:22)
[2017-04-29] MEDS: ALBUTEROL 200 PUFFS/18 GM MDI IH SCH ×7 (00:03→23:45)
[2017-04-29] MEDS ORDERED: POTASSIUM Cl (KCl) 50 ML IV ONE ×3 (01:15→19:27)
[2017-04-29] MEDS: INSULIN REGULAR HUMAN 100 UNIT/ML SC SCH ×4 (01:36→19:16)
[2017-04-29] MEDS: fentaNYL/NACL 100 ML IV SCH ×3 (05:02→17:30)
[2017-04-29] MEDS: AMIODARONE HCL 200 ML IV SCH (05:03)
[2017-04-29] MEDS: SODIUM BICARBONATE 100 MEQ in D5W 1,000 ML IV SCH (05:03)
--- NOTE | 2017-04-29 06:11 | CPEKG ---
Heart Rate: 90 RR Interval: 667 P-R Interval: 177 QRSD Interval: 84 QT Interval: 327 QTC Interval: 400 P [place]: 51 QRS [place]: 56 T Wave [place]: 36 EKG Severity - BORDERLINE ECG - EKG Impression: SINUS RHYTHM EKG Impression: LOW VOLTAGE IN FRONTAL LEADS EKG Impression: BORDERLINE T ABNORMALITIES, ANTERIOR LEADS Electronically Signed By: Raciel Pelayo 29-Apr-2017 09:24:58
--- NOTE | 2017-04-29 06:11 | CPEKG ---
Heart Rate: 90 RR Interval: 667 P-R Interval: 177 QRSD Interval: 84 QT Interval: 327 QTC Interval: 400 P [place]: 51 QRS [place]: 56 T Wave [place]: 36 EKG Severity - BORDERLINE ECG - EKG Impression: SINUS RHYTHM EKG Impression: LOW VOLTAGE IN FRONTAL LEADS EKG Impression: BORDERLINE T ABNORMALITIES, ANTERIOR LEADS Electronically Signed By: Raciel Pelayo 29-Apr-2017 09:24:58
[2017-04-29 06:33] LABS: PLATELET COUNT 93 10^3/uL (150-400)
[2017-04-29 06:43] LABS: INR 1.44 (0.83-1.16); PROTIME(PATIENT) 17.5 SEC (12.0-15.0)
[2017-04-29] MEDS: PREGABALIN 75 MG CAP PO SCH ×2 (08:17→21:07)
[2017-04-29] MEDS: CHLORHEXIDINE GLUCONATE 15 ML UDL PO SCH ×2 (08:28→20:31)
[2017-04-29] MEDS: NICOTINE 21 MG/24 HR PATCH TD SCH (08:28)
[2017-04-29] MEDS ORDERED: levOFLOXACIN 500 MG/DEXTROSE 100 ML IV SCH (09:00)
[2017-04-29] MEDS: COLLAGENASE 30 GM OINTMENT TP SCH (09:00)
[2017-04-29] MEDS ORDERED: PHYTONADIONE 5 MG in NS 50 ML IV ONE (09:00)
[2017-04-29] MEDS ORDERED: CALCIUM GLUCONATE 50 ML IV ONE (09:19)
--- NOTE | 2017-04-29 09:22 | PDINTPN ---
Senior Validation Engineer Progress Note Assessment/Plan: Assessment/Plan: * Acute respiratory failure-stable on mechanical ventilation. Oxygen requirements improved. -will hold assessment for extubation for now. * Atelectasis-right lower lobe and left upper lobe -will bronch today * Large right pleural effusion-chest tube placed. * Severe anemia-hemoglobin & hematocrit down. -transfusion in progress * Shock-markedly improved. On minimal pressors. * Status post exploratory laparotomy * Sedation-adequate. Patient is currently awake. * Hypokalemia-replace * COPD * Prostate cancer * Chronic back pain * With stress ulcer prophylaxis * VTE prophylaxis * Prognosis-guarded 40 minutes of critical care time spent with patient Case discussed with respiratory therapy and nursing Subjective: Awake and on mechanical ventilation. Able to answer yes no questions Objective: Vital Signs Temp Pulse Resp BP Pulse Ox 36.6 C 87 24 H 103/47 L 100 04/29/17 08:00 04/29/17 08:31 04/29/17 08:31 04/29/17 08:00 04/29/17 08:31 Microbiology 04/24/17 14:50 Gram Stain - Final Other - Other Laboratory Results 04/29/17 06:00 04/29/17 06:00 04/28/17 04/29/17 04/30/17 05:59 05:59 05:59 Intake Total 5342 5477 Output Total 5560 5935 630 Balance -218 -401 -912 PT 17.5 SEC (12.0-15.0) H 04/29/17 06:00 INR 1.44 (0.83-1.16) H 04/29/17 06:00 Laboratory Results 04/29/17 06:00 04/29/17 06:00 04/29/17 04/29/17 06:00 05:30 Patient Temperature 37.0 DEGREES DEGREES pCO2 37 mmHg mmHg (34 - 38) pO2 47 mmHg L mmHg (65 - 75) Total CO2 25 mEq/L mEq/L (23 - 27) ABG pH 7.43 (7.35 - 7.45) ABG PO2/FiO2 Ratio 118 RATIO RATIO ABG HCO3 24 mEq/L mEq/L (22 - 26) ABG O2 Saturation 83 % L % (92 - 95) ABG Base Excess 0.3 mEq/L mEq/L (-2.5 - 2.5) O2 Concentration % 40 % % Actual Respiration Rate 24 Set Respiration Rate 24 SIMV YES Tidal Volume 550 End Tidal CO2 24 PEEP 5 Pressure Support 7 Calcium 7.4 mg/dL L mg/dL (8.5 - 10.4) Ionized Calcium 1.11 MMOL/L L MMOL/L (1.12 - 1.30) Phosphorus 4.5 mg/dL D mg/dL (2.5 - 4.5) Magnesium 2.3 mg/dL mg/dL (1.6 - 2.3) Chest z-nrp-abscakpt by myself. Endotracheal tube in good position. There appears to be right lower lobe atelectasis as well as possible left upper lobe atelectasis. All lines are in good position. - Time Spent With Patient Time Spent With Patient: 40 minutes of critical care time spent with the patient Physical Exam - Physical Exam General Appearance: WD/WN, alert, obese EENT: PERRL/EOMI, ET tube Neck: non-tender, full range of motion, supple, normal inspection Respiratory: crackles (Bibasilar crackles), No respiratory distress, No accessory muscle use Cardiac/Chest: normal peripheral pulses, regular rate, rhythm, systolic murmur Abdomen: normal bowel sounds, non-tender, soft Male Genitalia: deferred Rectal: deferred Skin: normal color, warm/dry Extremities: normal range of motion, non-tender, normal inspection, normal capillary refill Neuro/Psych: alert ICD10 Worksheet Patient Problems: Problems Problem Status Onset Acute exacerbation of congestive heart failure Acute Atrial fibrillation with rapid ventricular response Acute DM type 1 (diabetes mellitus, type 1) Acute Perforated bowel Acute Renal failure Acute Altered mental status Acute Aspiration pneumonia Acute COPD (chronic obstructive pulmonary disease) Acute Lumbosacral radiculopathy at L5 Acute Narcotic dependency, continuous Acute Severe sepsis with septic shock Acute Spinal stenosis, lumbar Acute Tobacco dependence Acute
[2017-04-29] MEDS ORDERED: TRANEXAMIC ACID 1,000 MG in NS 100 ML IV ONE (09:30)
[2017-04-29] MEDS ORDERED: LIDOCAINE 1% 300 MG/30 ML SDV MISC ONE (10:46)
[2017-04-29] MEDS ORDERED: LIDOCAINE 2% JELLY 5 ML TUBE TP ONE (10:46)
[2017-04-29] MEDS ORDERED: MIDAZOLAM 2 MG/2 ML VIAL ONE (11:17)
[2017-04-29] MEDS ORDERED: LIDOCAINE 2% JELLY 30 ML TUBE TP ONE (11:45)
[2017-04-29] MEDS ORDERED: MIDAZOLAM 2 MG/2 ML VIAL IVP ONE (12:00)
[2017-04-29] MEDS: PROPOFOL/EMULSION 100 ML IV SCH (12:49)
--- NOTE | 2017-04-29 13:57 | SOAPPROG ---
SOAP Progress Note Assessment/Plan: Assessment: 72-YEAR-OLD MALE WITH OPEN ABDOMEN AFTER PERFORATED BOWEL HAD INCARCERATED INGUINAL HERNIA/DOING REASONABLY WELL/STILL ON VENTILATOR/WOUND VAC IN PLACE ABDOMEN RELATIVELY SOFT/AFEBRILE/LAB STABLE CHEST RELATIVELY CLEAR/COR REGULAR RHYTHM Plan: CONSIDER LAPAROTOMY FOR WASHOUT AND POSSIBLE CLOSURE IN THE NEXT 12:48 P.M. FORTY EIGHT HOURS BEFORE EXTUBATION 04/14/17 12:45 04/15/17 12:00 AFEBRILE/VITAL SIGNS STABLE/STILL ON VENT/LARGE NG AND WOUND VAC OUTPUTS/WBC 14 K/ABDOMEN SOFT WITH BOWEL SOUNDS/TOLERATING THE VENTILATOR WELL BEING SO STABLE PLAN ON WOUND VAC CHANGE AND POSSIBLE ABDOMINAL CLOSURE IN THE A.M. UNLESS HIS CONDITION WORSENS OR INCREASING ABDOMINAL PRESSURE 04/15/17 14:33 04/18/17 19:30 AFEBRILE/ VAC IN PLACE AND FUNCTIONING/ WOUND OK/ ABD SOFT/ EPISODE OF LGI BLEED LAST PM BUT NO REPEAT AFTER STOPPING HEPARIN HCT STABLE/ INR 1.6/ PT PULLED HIS NG OUT/ UO GOOD 04/26/17 21:09 CALLED TO SEE PATIENT FOR HYPERTENSION AND BLEEDING FROM THE WOUND VAC/BP RUNNING IN THE 70S AND 80S AND PULSE 100/URINE OUTPUT IS BEEN MINISCULE SINCE HIS SURGERY 4 HOURS AGO/HEMATOCRIT IS DOWN TO 22/WOUND VAC CHANGE WITH A LARGE AMOUNT OF CLOT UNDER THE ABTHERA/CLOT WAS EVACUATED SOME BLOODY FLUID SECTION CLEAR AND THE WOUND VAC AND ABTHERA WAS THEN REPLACED COAGS WERE SENT WITH AN INR 1.9 A PROTIME OF 21 AND A PTT 44 WILL USE K CENTRA AND VITAMIN K/ LAPAROTOMY IF HE CONTINUES TO BLEED ALTHOUGH HE SEEMS TO HAVE A COAGULOPATHY AT PRESENT/HE IS ALSO ON PRESSOR SUPPORT AND HAS BEEN SINCE HIS SURGERY/HE APPARENTLY RECEIVED 4 UNITS OF BLOOD PRIOR TO SURGERY WITH HEMATOCRIT OF 17 THIS MORNING FOR UNKNOWN REASON 04/27/17 08:08 still marginal vs this am with bp 85 on pressors/ uo weak/ labs pending but plts decreased earlier cxr shows large rt effusion and picc line up jugular/ will need new picc and probable rt chest tube or thorascentesis 04/28/17 12:27 VS STABLE/ AFEBRILE/ STIL ON VENT BUT OFF PRESSORS/ ABD STABLE WITH WOUND VAC/ K 3.7/ HCT 25/ WILL PROCEED WITH REMOVAL ABD PACKS AND WASHOUT 04/29/17 13:54 STATUS POST ABDOMINAL CLOSURE AND PACK REMOVAL/DOING OKAY/VITAL SIGNS STABLE/ HEMATOCRIT STABLE AT 23/URINE OUTPUT IS ADEQUATE/STILL CORRECTING COAGULOPATHY SIGNIFICANT KAREN DRAINAGE PERSISTS BUT IS SLOW/WOUND IS CLEAN AND DRY WITH A WOUND VAC IN PLACE PLAN IS TO CONTINUE ON THE VENT AND CORRECTION OF HIS COAG FACTORS, TRANSFUSE NEEDED WOULD LIKE TO GET A RETROPERITONEAL ANGIOGRAM BUT HIS CREATININE IS STILL 1.7 Objective: Vital Signs Temp Pulse Resp BP Pulse Ox 36.6 C 84 25 H 108/47 L 100 04/29/17 12:00 04/29/17 13:00 04/29/17 13:00 04/29/17 13:00 04/29/17 13:00 Microbiology 04/24/17 14:50 Gram Stain - Final Other - Other Laboratory Results 04/29/17 11:55 04/29/17 11:55 04/28/17 04/29/17 04/30/17 05:59 05:59 05:59 Intake Total 5342 5477 458 Output Total 5560 5935 1220 Balance -218 -458 -762 PT 17.5 SEC (12.0-15.0) H 04/29/17 06:00 INR 1.44 (0.83-1.16) H 04/29/17 06:00 ICD10 Worksheet Patient Problems: Problems Problem Status Onset Acute exacerbation of congestive heart failure Acute Atrial fibrillation with rapid ventricular response Acute DM type 1 (diabetes mellitus, type 1) Acute Perforated bowel Acute Renal failure Acute Altered mental status Acute Aspiration pneumonia Acute COPD (chronic obstructive pulmonary disease) Acute Lumbosacral radiculopathy at L5 Acute Narcotic dependency, continuous Acute Severe sepsis with septic shock Acute Spinal stenosis, lumbar Acute Tobacco dependence Acute - ICD10 Problem Qualifiers (1) Perforated bowel
[2017-04-29] MEDS ORDERED: POTASSIUM Cl (KCl) 20 MEQ in D5W 50 ML IV ONE (14:45)
--- NOTE | 2017-04-29 14:53 | HOSPPROG ---
Hospitalist Progress Note Assessment/Plan: 72 yo M with PMH of copd, chronic resp failure pw septic shock/polymicrobial bacteremia in setting of bowel perforation septic shock: off pressors cvp up to 16-17 follow pulm edema: appears to be mobilizing fluid will dose lasix prn hold lasix today, 04/29 acute blood loss anemia: source is RP bleed and R pleural effusion has received 15 units toal packed red cells this week will give 1 unit today hypocalcemia: check stat iCa OK ?DIC: fibrinogen normal modestly elevated INR noted follow daily ID concerned about potential for qualitative platelet dysfunction polymicrobial bacteremia d/t staph epi and bacteroides - repeat BCx from 04/20 with ngtd; ID following, on levoflagyl small bowel perforation with gross peritonitis 2/2 incarcerated/strangulated necrotic cecum - s/p re-anastamosis/fascial closure and wound vac placement and now repeat ex lap on 04/26--abdomen left open for now -see above fabricio: cr 1-1.7 overnight in setting of lasix. as above, hold lasix 04/29 superficial thrombus LUE: without dvt, holding AC for now given recent bleed and ongoing oozing and need for repeat procedure. Warm compresses. penile edema - elevate, follow acute on chronic pain on continuous narcotics on fentanyl a-fib s/p failed cardioversion, most recent ECG with sinus rhythm - amiodarone - rate controlled QT: follow daily w levoflox and amiodarone OK Qt 04/29 code: dnr as of yesterday acute on chronic resp failure/COPD -reintubated now post operatively - baseline O2 2-4L TPN--advanced diet but only taking minimal amounts, will continue tpn for now ppx: started on HSC yesterday, given recurrent bleed stopped high risk, multiple active medical problems and tenuous status, moved back to ICU Subjective: case d/w kvng celaya. off pressors. hct stable Objective: Vital Signs Temp Pulse Resp BP Pulse Ox 36.6 C 74 24 H 95/51 L 100 04/29/17 12:00 04/29/17 14:00 04/29/17 14:00 04/29/17 14:00 04/29/17 14:00 Microbiology 04/24/17 14:50 Gram Stain - Final Other - Other Laboratory Results 04/29/17 11:55 10/08/17 11:55 04/28/17 04/29/17 04/30/17 05:59 05:59 05:59 Intake Total 5342 5477 458 Output Total 5560 5935 1220 Balance -218 -458 -762 PT 17.5 SEC (12.0-15.0) H 04/29/17 06:00 INR 1.44 (0.83-1.16) H 04/29/17 06:00 - Physical Exam Constitutional: other (intubated, sedated, respondxs to questions) Eyes: PERRL, anicteric sclera Ears, Nose, Mouth, Throat: moist mucous membranes, hearing normal Cardiovascular: regular rate and rhythym, no murmur, rub, or gallop Respiratory: no respiratory distress, no rales or rhonchi Gastrointestinal: distension, other (no rebound), No normoactive bowel sounds, No soft, non-tender abdomen Genitourinary: ferguson in urethra Skin: warm, normal color Musculoskeletal: No full muscle strength Neurologic: No AAOx3 Psychiatric: No interacting appropriately Lymph, Heme, Immunologic: no cervical LAD ICD10 Worksheet Patient Problems: Problems Problem Status Onset Acute exacerbation of congestive heart failure Acute Atrial fibrillation with rapid ventricular response Acute DM type 1 (diabetes mellitus, type 1) Acute Perforated bowel Acute Renal failure Acute Altered mental status Acute Aspiration pneumonia Acute COPD (chronic obstructive pulmonary disease) Acute Lumbosacral radiculopathy at L5 Acute Narcotic dependency, continuous Acute Severe sepsis with septic shock Acute Spinal stenosis, lumbar Acute Tobacco dependence Acute
--- NOTE | 2017-04-29 16:45 | GPN ---
[f rep st] PROCEDURE NOTE PROCEDURE: Fiberoptic bronchoscopy. INDICATION: Mucus plugging, atelectasis. ANESTHESIA: He is currently sedated on mechanical ventilation. He received 1% lidocaine topically. DESCRIPTION OF PROCEDURE: The bronchoscope was entered through a #8 endotracheal tube. Distal trach ea and jessica were visualized showing no endobronchial lesions, normal-appearing mucosa. Bronchoscop e was entered in the right lung. Right upper lobe was visualized, showed no endobronchial lesion nor mal-appearing mucosa. There was moderate amount of mucous plugging seen in the right middle lobe, ri ght lower lobe. These were therapeutically aspirated. Bronchoscope was entered in the left lung. T he left upper lobe shows a moderate amount of thick tenacious secretions. They were therapeutically aspirated. Bronchoscope was entered in the left lower lobe. The left lower lobe including subsegmen ts were visualized and showed copious amounts of thick tenacious secretions that were therapeutically aspirated. The patient tolerated the procedure well. There were no apparent complications. Thank you very much. /[id number]/JIGARL
--- NOTE | 2017-04-29 16:49 | PCMIDPN ---
Assessment/Plan: Assessment: Septic shock secondary to peritonitis after incarcerated cecum became necrotic. Patient improved in the interim but then declined secondary to bleeding intra- abdominally from an unknown source. Patient is improved from yesterday. Still remains on ventilator. Plan: 1. Continue Levaquin and Flagyl. 2. Follow-up clinical course. Subjective: Patient remains intubated and mildly sedated. He is alert despite intubation and sedation. No significant overnight events. He is undergoing a bronchoscopy today. Objective: Levaquin # 3 Flagyl # 2 Vital Signs Temp Pulse Resp BP Pulse Ox 36.6 C 75 24 H 111/50 L 100 04/29/17 12:00 04/29/17 16:00 04/29/17 16:00 04/29/17 16:00 04/29/17 16:00 Microbiology 04/24/17 14:50 Gram Stain - Final Other - Other Laboratory Results 04/29/17 11:55 04/29/17 11:55 04/28/17 04/29/17 04/30/17 05:59 05:59 05:59 Intake Total 5342 5477 458 Output Total 5560 5935 1630 [facility] -218 -458 -1172 - Physical Exam General Appearance: WD/WN, no apparent distress, non-toxic Respiratory: lungs clear, crackles, coarse breath sounds, No wheezing Cardiac/Chest: regular rate, rhythm, No tachycardia Skin: normal color, warm/dry, No rash ICD10 Worksheet Patient Problems: Problems Problem Status Onset Acute exacerbation of congestive heart failure Acute Atrial fibrillation with rapid ventricular response Acute DM type 1 (diabetes mellitus, type 1) Acute Perforated bowel Acute Renal failure Acute Altered mental status Acute Aspiration pneumonia Acute COPD (chronic obstructive pulmonary disease) Acute Lumbosacral radiculopathy at L5 Acute Narcotic dependency, continuous Acute Severe sepsis with septic shock Acute Spinal stenosis, lumbar Acute Tobacco dependence Acute
[2017-04-29] MEDS: NS 1,000 ML IV SCH (17:34)
[2017-04-29] MEDS: HYDROmorphONE/DILAUDID 1 MG/ML INJ IVP PRN (20:08)
[2017-04-29] MEDS: TPN W/ FAMOTIDINE 1 EA BAG IV SCH (20:08)
[2017-04-30] MEDS: fentaNYL/NACL 100 ML IV SCH ×4 (01:00→18:54)
[2017-04-30] MEDS: INSULIN REGULAR HUMAN 100 UNIT/ML SC SCH ×2 (01:45→06:52)
[2017-04-30] MEDS: PROPOFOL/EMULSION 100 ML IV SCH ×3 (01:50→20:12)
[2017-04-30] MEDS: ALBUTEROL 200 PUFFS/18 GM MDI IH SCH ×5 (04:10→20:11)
[2017-04-30 04:59] LABS: PLATELET COUNT 89 10^3/uL (150-400)
[2017-04-30] MEDS ORDERED: POTASSIUM Cl (KCl) 50 ML IV ONE ×3 (05:44→20:24)
[2017-04-30] MEDS: HYDROmorphONE/DILAUDID 1 MG/ML INJ IVP PRN ×2 (07:19→20:12)
[2017-04-30] MEDS: CHLORHEXIDINE GLUCONATE 15 ML UDL PO SCH ×2 (09:17→20:12)
[2017-04-30] MEDS: PREGABALIN 75 MG CAP PO SCH ×3 (09:18→21:09)
[2017-04-30] MEDS: NICOTINE 21 MG/24 HR PATCH TD SCH (09:20)
[2017-04-30] MEDS ORDERED: FUROSEMIDE 40 MG/4 ML VIAL IVP ONE (09:52)
--- NOTE | 2017-04-30 09:59 | HOSPPROG ---
Hospitalist Progress Note Assessment/Plan: 72 yo M with PMH of copd, chronic resp failure pw septic shock/polymicrobial bacteremia in setting of bowel perforation septic shock: off pressors X 3 days cvp up to 16-17 follow pulm edema: appears to be mobilizing fluid today's cxr (interp by me) w pulm edema lasix 40 IV x1 acute blood loss anemia: source is RP bleed and R pleural effusion has received 15 units toal packed red cells this week transfuse 1 unit today 10/9 L pleural effusion: follow hypocalcemia: check stat iCa OK ?DIC: fibrinogen normal modestly elevated INR noted follow daily ID concerned about potential for qualitative platelet dysfunction polymicrobial bacteremia d/t staph epi and bacteroides - repeat BCx from 04/20 with ngtd; ID following, on levoflagyl small bowel perforation with gross peritonitis 2/2 incarcerated/strangulated necrotic cecum - s/p re-anastamosis/fascial closure and wound vac placement and now repeat ex lap on 04/26--abdomen now closed fabricio: cr 1-1.7 overnight in setting of lasix. as above, hold lasix 04/29 superficial thrombus LUE: without dvt, holding AC for now given recent bleed and ongoing oozing and need for repeat procedure. Warm compresses. penile edema - elevate, follow acute on chronic pain on continuous narcotics on fentanyl a-fib s/p failed cardioversion, most recent ECG with sinus rhythm amiodarone dc'd follow h/o MAZE procedure QT: follow daily w levoflox and amiodarone OK Qt 04/29 code: dnr as of yesterday acute on chronic resp failure/COPD -reintubated now post operatively - baseline O2 2-4L TPN--advanced diet but only taking minimal amounts, will continue tpn for now ppx: started on HSC yesterday, given recurrent bleed stopped high risk, multiple active medical problems and tenuous status, moved back to ICU Subjective: case d/w minor Objective: Vital Signs Temp Pulse Resp BP Pulse Ox 36.7 C 68 17 117/55 L 95 04/30/17 04:00 04/30/17 08:00 04/30/17 08:00 04/30/17 08:00 04/30/17 08:00 Microbiology 04/24/17 14:50 Gram Stain - Final Other - Other Laboratory Results 04/30/17 04:40 04/30/17 04:40 04/29/17 04/30/17 05/01/17 05:59 05:59 05:59 Intake Total 5477 3044 Output Total 5924 3260 Balance -458 -216 PT 17.5 SEC (12.0-15.0) H 04/29/17 06:00 INR 1.44 (0.83-1.16) H 04/29/17 06:00 - Physical Exam Constitutional: no apparent distress, appears nourished, other (more alert) Eyes: PERRL, anicteric sclera Ears, Nose, Mouth, Throat: moist mucous membranes, hearing normal Cardiovascular: regular rate and rhythym, no murmur, rub, or gallop Respiratory: no respiratory distress, other (rhonchorous anterolat) Gastrointestinal: distension, No normoactive bowel sounds, No guarding, No rebound Genitourinary: no bladder fullness, ferguson in urethra Skin: warm, normal color Musculoskeletal: full muscle strength, no muscle tenderness Neurologic: AAOx3 Psychiatric: interacting appropriately Lymph, Heme, Immunologic: no cervical LAD ICD10 Worksheet Patient Problems: Problems Problem Status Onset Acute exacerbation of congestive heart failure Acute Atrial fibrillation with rapid ventricular response Acute DM type 1 (diabetes mellitus, type 1) Acute Perforated bowel Acute Renal failure Acute Altered mental status Acute Aspiration pneumonia Acute COPD (chronic obstructive pulmonary disease) Acute Lumbosacral radiculopathy at L5 Acute Narcotic dependency, continuous Acute Severe sepsis with septic shock Acute Spinal stenosis, lumbar Acute Tobacco dependence Acute
--- NOTE | 2017-04-30 10:51 | SOAPPROG ---
SOAP Progress Note Assessment/Plan: Assessment/Plan: 72yo M s/p ex-lap for incarcerated/strangulated RIGH c necrotic cecum, proximal perforated small bowel. S/p takeback washout for RP bleed, now closed - Pain is controlled, vitals stable off pressors since Sunday - Taken back to OR Sunday where he was washed and closed, RP bleed stable. KAREN continue to drain SS fluid, VAC scant output - Blood transfusion, lasix today. - Making progress, would like to wean vent as tolerates. 04/13/17 05:14 04/16/17 09:19 04/16/17 09:24 04/16/17 09:29 04/17/17 10:27 04/19/17 08:27 04/20/17 09:58 04/21/17 10:31 04/22/17 09:16 04/23/17 13:20 04/24/17 10:50 04/26/17 07:16 04/27/17 13:27 04/30/17 10:49 Subjective: Awake, alert, denies pain. Objective: Vital Signs Temp Pulse Resp BP Pulse Ox 36.7 C 68 17 117/55 L 95 04/30/17 04:00 04/30/17 08:00 04/30/17 08:00 04/30/17 08:00 04/30/17 08:00 Microbiology 04/24/17 14:50 Gram Stain - Final Other - Other Laboratory Results 04/30/17 04:40 04/30/17 04:40 04/29/17 04/30/17 05/01/17 05:59 05:59 05:59 Intake Total 5477 3044 Output Total 5935 3260 Balance -458 -216 PT 17.5 SEC (12.0-15.0) H 04/29/17 06:00 INR 1.44 (0.83-1.16) H 04/29/17 06:00 ICD10 Worksheet Patient Problems: Problems Problem Status Onset Acute exacerbation of congestive heart failure Acute Atrial fibrillation with rapid ventricular response Acute DM type 1 (diabetes mellitus, type 1) Acute Perforated bowel Acute Renal failure Acute Altered mental status Acute Aspiration pneumonia Acute COPD (chronic obstructive pulmonary disease) Acute Lumbosacral radiculopathy at L5 Acute Narcotic dependency, continuous Acute Severe sepsis with septic shock Acute Spinal stenosis, lumbar Acute Tobacco dependence Acute
[2017-04-30] MEDS ORDERED: LIDOCAINE 2% JELLY 5 ML TUBE TP ONE (10:59)
[2017-04-30] MEDS ORDERED: LIDOCAINE 1% 300 MG/30 ML SDV MISC ONE (10:59)
[2017-04-30] MEDS ORDERED: BENZOCAINE UNIT DOSE SPRAY HURRICAINE MM ONE (10:59)
[2017-04-30] MEDS: COLLAGENASE 30 GM OINTMENT TP SCH (12:05)
--- NOTE | 2017-04-30 14:14 | PDINTPN ---
Canceling And Cutting Control Clerk Progress Note Assessment/Plan: Assessment: * Acute respiratory failure-stable on mechanical ventilation. Oxygen requirements improved. -will hold assessment for extubation for now. * Atelectasis-LLL on CXR today (vs. new effusion). * Large right pleural effusion-chest tube placed. Draining serosanguinous fluid. * Severe anemia-hemoglobin & hematocrit down. -transfusion again today. * YOLANDA: Cr improving again. UO OK. * Shock-markedly improved. Off pressors * Status post exploratory laparotomy * Sedation-adequate. Patient is currently awake. * Hypokalemia-resolved * COPD * Prostate cancer * Chronic back pain * With stress ulcer prophylaxis * VTE prophylaxis * Prognosis-guarded Plan: Bronch. Wean vent as tolerated, but minute ventilation is too high to extubate today. Follow CXR. If not better, with US chest and consider thoracentesis. 04/30/17 14:42 Subjective: Intubated, sedated, intermittently agitated. Objective: Vital Signs Temp Pulse Resp BP Pulse Ox 36.8 C 72 24 H 95/80 L 100 04/30/17 10:00 04/30/17 12:00 04/30/17 12:00 04/30/17 12:00 04/30/17 12:00 Microbiology 04/24/17 14:50 Gram Stain - Final Other - Other Laboratory Results 04/30/17 04:40 04/30/17 10:53 04/29/17 04/30/17 05/01/17 05:59 05:59 05:59 Intake Total 5477 3044 Output Total 5935 3260 Balance -458 -216 PT 17.5 SEC (12.0-15.0) H 04/29/17 06:00 INR 1.44 (0.83-1.16) H 04/29/17 06:00 Laboratory Tests 04/30/17 06:03 pCO2 37 pO2 75 Total CO2 26 ABG pH 7.44 ABG HCO3 24 Total O2 Concentration 40.0 Actual Respiration Rate 20 End Tidal CO2 27 CXR: New density L base, ? atelectasis, effusion. Images reviewed. Physical Exam - Physical Exam General Appearance: alert, mild distress EENT: normal ENT inspection Neck: supple, normal inspection Respiratory: decreased breath sounds (left base) Cardiac/Chest: regular rate, rhythm, edema Abdomen: other (midline WoundVac), No normal bowel sounds (absent), No non- tender (tender) Skin: normal color, warm/dry Extremities: normal inspection Neuro/Psych: alert, normal mood/affect, oriented x 3 ICD10 Worksheet Patient Problems: Problems Problem Status Onset Acute exacerbation of congestive heart failure Acute Atrial fibrillation with rapid ventricular response Acute DM type 1 (diabetes mellitus, type 1) Acute Perforated bowel Acute Renal failure Acute Altered mental status Acute Aspiration pneumonia Acute COPD (chronic obstructive pulmonary disease) Acute Lumbosacral radiculopathy at L5 Acute Narcotic dependency, continuous Acute Severe sepsis with septic shock Acute Spinal stenosis, lumbar Acute Tobacco dependence Acute
--- NOTE | 2017-04-30 14:39 | GPN ---
[f rep st] PROCEDURE NOTE DATE OF PROCEDURE: 04/30/2017 PROCEDURE: Flexible Fiberoptic Bronchoscopy INDICATION FOR PROCEDURE: Respiratory failure with retained secretions and atelectasis. DESCRIPTION OF PROCEDURE: The risks and benefits of the procedure were explained to the patient's virgilio ruano, who agreed to proceed. The entire procedure was performed in the Intensive Care Unit with the patient under blood pressure, EKG, and oximetry monitoring. It was my assessment that there was no r isk of airborne infection from the procedure. Following an appropriate time-out, the bronchoscope was advanced into the patient's endotracheal tube . I encountered thick purulent secretions in the distal endotracheal tube and trachea, extending sarah jp into the left-sided airways. These required me to remove the bronchoscope several times in or gertrude to clear the channel. After removing these secretions, I was able to visualize the right-sided a irways, where there was a small amount of mucopurulent secretions and otherwise normal anatomy. On t he left, there was moderate amount of mucopurulent secretions primarily emanating from the lower lobe , which we suctioned and then lavaged. There was some extrinsic compression of the left lower lobe, but all airways could be intubated and examined, with no other abnormal mucosal or endobronchial find ings. The patient tolerated the procedure well with good saturations throughout. Propofol was used for sedation. Specimens sent for Gram stain and culture. There were no complicati ons apparent from the procedure. /[id number]/MODL
--- NOTE | 2017-04-30 18:20 | PCMIDPN ---
Assessment/Plan: Assessment/Plan: * Peritonitis associated with necrotic cecum: Continue levofloxacin and Flagyl. QT interval yesterday 400. Prior Zosyn discontinued for concerns that might be contributing to coagulopathy and thrombocytopenia. * Acute renal insufficiency: Clinically improving. Will resume daily levofloxacin dosing. 04/30/17 18:18 Subjective: Status post BAL earlier today with mucus plugging noted in left lower lobe. Objective: Vital Signs Temp Pulse Resp BP Pulse Ox 36.3 C 84 19 119/58 L 100 04/30/17 17:58 04/30/17 17:58 04/30/17 17:58 04/30/17 17:58 04/30/17 17:58 Microbiology 04/30/17 14:55 Gram Stain - Final Lung - Bronchial Washings 04/24/17 14:50 Gram Stain - Final Other - Other Laboratory Results 04/30/17 04:40 04/29/17 04/30/17 05/01/17 05:59 05:59 05:59 Intake Total 5477 3044 1450 Output Total 5935 3260 2940 Balance -458 216 -7665 Levofloxacin # 4 Metronidazole # 3 EKG from 04/29/2017 with QT 400 - Physical Exam General Appearance: non-toxic EENT: ET Tube, No scleral icterus Respiratory: coarse breath sounds Cardiac/Chest: regular rate, rhythm Abdomen: non-tender, other (Midline wound VAC in place without erythema) - Line/s RUE PICC Lines: No drainage, No erythema ICD10 Worksheet Patient Problems: Problems Problem Status Onset Acute exacerbation of congestive heart failure Acute Atrial fibrillation with rapid ventricular response Acute DM type 1 (diabetes mellitus, type 1) Acute Perforated bowel Acute Renal failure Acute Altered mental status Acute Aspiration pneumonia Acute COPD (chronic obstructive pulmonary disease) Acute Lumbosacral radiculopathy at L5 Acute Narcotic dependency, continuous Acute Severe sepsis with septic shock Acute Spinal stenosis, lumbar Acute Tobacco dependence Acute
[2017-04-30] MEDS: TPN W/ FAMOTIDINE 1 EA BAG IV SCH (20:12)
[2017-05-01] MEDS: ALBUTEROL 200 PUFFS/18 GM MDI IH SCH ×6 (00:47→20:08)
[2017-05-01] MEDS: fentaNYL/NACL 100 ML IV SCH ×4 (00:49→17:18)
[2017-05-01] MEDS: PROPOFOL/EMULSION 100 ML IV SCH ×4 (00:49→21:06)
[2017-05-01] MEDS: HYDROmorphONE/DILAUDID 1 MG/ML INJ IVP PRN (03:49)
[2017-05-01] MEDS: CHLORHEXIDINE GLUCONATE 15 ML UDL PO SCH ×2 (08:17→20:44)
[2017-05-01] MEDS: COLLAGENASE 30 GM OINTMENT TP SCH (08:18)
[2017-05-01] MEDS: NICOTINE 21 MG/24 HR PATCH TD SCH (08:18)
[2017-05-01] MEDS: PREGABALIN 75 MG CAP PO SCH ×3 (08:19→21:22)
--- NOTE | 2017-05-01 10:03 | SOAPPROG ---
SOAP Progress Note Assessment/Plan: Assessment/Plan: 72yo M s/p ex-lap for incarcerated/strangulated RIGH c necrotic cecum, proximal perforated small bowel. S/p takeback washout for RP bleed, now closed - States that his pain is well controlled - Was bronch'd yesterday, lot of purulent secretions which will hamper his extubation. Working to wean and extubate today. - Abdomen remains soft, and minimally distended, KAREN in LUQ is not frankly bloody which is reassuring - Transfused yesterday, likely no blood this AM anyway - Making progress 04/13/17 05:14 04/16/17 09:19 04/16/17 09:24 04/16/17 09:29 04/17/17 10:27 04/19/17 08:27 04/20/17 09:58 04/21/17 10:31 04/22/17 09:16 04/23/17 13:20 04/24/17 10:50 04/26/17 07:16 04/27/17 13:27 04/30/17 10:49 05/01/17 10:01 Subjective: Awarek, alert, denies pain Objective: Vital Signs Temp Pulse Resp BP Pulse Ox 36.7 C 80 19 101/49 L 100 05/01/17 08:00 05/01/17 08:25 05/01/17 08:25 05/01/17 08:00 05/01/17 08:25 Microbiology 04/30/17 14:55 Gram Stain - Final Lung - Bronchial Washings 04/24/17 14:50 Gram Stain - Final Other - Other Laboratory Results 05/01/17 04:50 05/01/17 04:50 04/30/17 05/01/17 05/02/17 05:59 05:59 05:59 Intake Total 3044 1678 Output Total 2400 0061 Balance -216 -2603 PT 17.5 SEC (12.0-15.0) H 04/29/17 06:00 INR 1.44 (0.83-1.16) H 04/29/17 06:00 ICD10 Worksheet Patient Problems: Problems Problem Status Onset Acute exacerbation of congestive heart failure Acute Atrial fibrillation with rapid ventricular response Acute DM type 1 (diabetes mellitus, type 1) Acute Perforated bowel Acute Renal failure Acute Altered mental status Acute Aspiration pneumonia Acute COPD (chronic obstructive pulmonary disease) Acute Lumbosacral radiculopathy at L5 Acute Narcotic dependency, continuous Acute Severe sepsis with septic shock Acute Spinal stenosis, lumbar Acute Tobacco dependence Acute
[2017-05-01] MEDS ORDERED: FUROSEMIDE 40 MG/4 ML VIAL IVP ONE ×3 (10:33→16:00)
--- NOTE | 2017-05-01 10:39 | WOCRNPDOC ---
WOCRN Advanced Assessment Note - Skin Integrity Problem, Advanced Assess Medial Back Pressure Injury Dressing Type: Allevyn Life, Telfa Dressing Description: Intact Exudate Amount: Scant Exudate Color: Reddish/Yellow Exudate Characteristic(s): Serosanguinous Integumentary Issue Intervention: Dressing Changed, Dressing Initialed & Dated, Mechanical Debridement Nataly Wound Tissue: Blanching, Erythema, Macerated, Thin, Scarred Nataly Wound Swelling: Mild Wound Bed Color: [place], Red, Yellow Wound Bed Constitution: Smooth Tissue (chronic, avascular in apppearance, non- granulating, 70%), Adhered Slough (30%) Site Odor: None Site Measurement - Head-to-Toe Length X Width X Depth (cm): 4.5cmx1.5cmx0.2cm Pressure Injury Stage: Stage 3 Pressure Injury Present on Admit: Yes (Documented in H&P) Skin Integrity Problem Comment: Santyl is beginning to break the slough down in the wound, only 30% remaining in distal aspect of wound bed. Tissue throughout the remaining wound bed is smooth and chronic in appearance. I was able to debride some of the superficial slough mechanically w/ NS and gauze, down to bleeding tissue. There is a 0.2cm rim of mild, periwound maceration circumferentially, and scarred tissue extending out another 0.8cm from that. Recommend continued Santyl daily until all necrotic tissue is removed. Will consider debridement w/ currette on Sunday (05/04) if slough is soft/loose enough. correctional officer captain Joann present and assisting. Coccyx Pressure Injury Dressing Type: Open to Air (Calazime cream) Exudate Amount: None Exudate Characteristic(s): None Integumentary Issue Intervention: Barrier Cream Applied Nataly Wound Tissue: Blanching, Erythema, Intact Nataly Wound Swelling: None Pressure Injury Stage: Stage 2 Pressure Injury Present on Admit: Yes (Documented in H&P) Skin Integrity Problem Comment: Healing stage 2 pressure injury observed over coccyx after Calazime paste removed for assessment. Tissue blanches and is intact. Will continue w/ pressure-relieving interventions while patient is here , including turns q2, Calazime cream, and specialty mattress. correctional officer captain Joann present and assisting, visualized site.
--- NOTE | 2017-05-01 10:39 | WOCRNPDOC ---
WOCRN Advanced Assessment Note - Skin Integrity Problem, Advanced Assess Medial Back Pressure Injury Dressing Type: Allevyn Life, Telfa Dressing Description: Intact Exudate Amount: Scant Exudate Color: Reddish/Yellow Exudate Characteristic(s): Serosanguinous Integumentary Issue Intervention: Dressing Changed, Dressing Initialed & Dated, Mechanical Debridement Nataly Wound Tissue: Blanching, Erythema, Macerated, Thin, Scarred Nataly Wound Swelling: Mild Wound Bed Color: [place], Red, Yellow Wound Bed Constitution: Smooth Tissue (chronic, avascular in apppearance, non- granulating, 70%), Adhered Slough (30%) Site Odor: None Site Measurement - Head-to-Toe Length X Width X Depth (cm): 4.5cmx1.5cmx0.2cm Pressure Injury Stage: Stage 3 Pressure Injury Present on Admit: Yes (Documented in H&P) Skin Integrity Problem Comment: Santyl is beginning to break the slough down in the wound, only 30% remaining in distal aspect of wound bed. Tissue throughout the remaining wound bed is smooth and chronic in appearance. I was able to debride some of the superficial slough mechanically w/ NS and gauze, down to bleeding tissue. There is a 0.2cm rim of mild, periwound maceration circumferentially, and scarred tissue extending out another 0.8cm from that. Recommend continued Santyl daily until all necrotic tissue is removed. Will consider debridement w/ currette on Sunday (05/04) if slough is soft/loose enough. powerhouse electrician apprentice Joann present and assisting. Coccyx Pressure Injury Dressing Type: Open to Air (Calazime cream) Exudate Amount: None Exudate Characteristic(s): None Integumentary Issue Intervention: Barrier Cream Applied Nataly Wound Tissue: Blanching, Erythema, Intact Nataly Wound Swelling: None Pressure Injury Stage: Stage 2 Pressure Injury Present on Admit: Yes (Documented in H&P) Skin Integrity Problem Comment: Healing stage 2 pressure injury observed over coccyx after Calazime paste removed for assessment. Tissue blanches and is intact. Will continue w/ pressure-relieving interventions while patient is here , including turns q2, Calazime cream, and specialty mattress. powerhouse electrician apprentice Joann present and assisting, visualized site.
--- NOTE | 2017-05-01 10:39 | WOCRNPDOC ---
WOCRN Advanced Assessment Note - Skin Integrity Problem, Advanced Assess Medial Back Pressure Injury Dressing Type: Allevyn Life, Telfa Dressing Description: Intact Exudate Amount: Scant Exudate Color: Reddish/Yellow Exudate Characteristic(s): Serosanguinous Integumentary Issue Intervention: Dressing Changed, Dressing Initialed & Dated, Mechanical Debridement Nataly Wound Tissue: Blanching, Erythema, Macerated, Thin, Scarred Nataly Wound Swelling: Mild Wound Bed Color: [place], Red, Yellow Wound Bed Constitution: Smooth Tissue (chronic, avascular in apppearance, non- granulating, 70%), Adhered Slough (30%) Site Odor: None Site Measurement - Head-to-Toe Length X Width X Depth (cm): 4.5cmx1.5cmx0.2cm Pressure Injury Stage: Stage 3 Pressure Injury Present on Admit: Yes (Documented in H&P) Skin Integrity Problem Comment: Santyl is beginning to break the slough down in the wound, only 30% remaining in distal aspect of wound bed. Tissue throughout the remaining wound bed is smooth and chronic in appearance. I was able to debride some of the superficial slough mechanically w/ NS and gauze, down to bleeding tissue. There is a 0.2cm rim of mild, periwound maceration circumferentially, and scarred tissue extending out another 0.8cm from that. Recommend continued Santyl daily until all necrotic tissue is removed. Will consider debridement w/ currette on Sunday (05/04) if slough is soft/loose enough. ticket sales agent Joann present and assisting. Coccyx Pressure Injury Dressing Type: Open to Air (Calazime cream) Exudate Amount: None Exudate Characteristic(s): None Integumentary Issue Intervention: Barrier Cream Applied Nataly Wound Tissue: Blanching, Erythema, Intact Nataly Wound Swelling: None Pressure Injury Stage: Stage 2 Pressure Injury Present on Admit: Yes (Documented in H&P) Skin Integrity Problem Comment: Healing stage 2 pressure injury observed over coccyx after Calazime paste removed for assessment. Tissue blanches and is intact. Will continue w/ pressure-relieving interventions while patient is here , including turns q2, Calazime cream, and specialty mattress. ticket sales agent Joann present and assisting, visualized site.
[2017-05-01] MEDS ORDERED: LIDOCAINE 1% 300 MG/30 ML SDV MISC ONE (11:35)
[2017-05-01] MEDS ORDERED: LIDOCAINE 1% 300 MG/30 ML SDV ONE (11:40)
--- NOTE | 2017-05-01 11:43 | PDINTPN ---
Pharmacy Operations Manager Progress Note Assessment/Plan: Assessment: * Acute respiratory failure-stable on mechanical ventilation. Oxygen requirements improved. -will hold assessment for extubation for now. * Atelectasis-LLL on CXR yesterday. Better after bronch wiht suctioning of a large amount of purulent secretions. * Large right pleural effusion-chest tube placed. Draining serosanguinous fluid. * Severe anemia-hemoglobin & hematocrit up after transfusion. * YOLANDA: Cr improving again. UO OK. * Shock-markedly improved. Off pressors * Status post exploratory laparotomy * Sedation-adequate. Patient is currently awake. * Hypokalemia-resolved * COPD * Prostate cancer * Chronic back pain * With stress ulcer prophylaxis * VTE prophylaxis * Prognosis-guarded Plan: Bronch. Wean vent as tolerated, but minute ventilation is too high to extubate today. Follow CXR. Lasix/albumin. Bronch again today. 04/30/17 14:42 05/01/17 11:42 Subjective: More alert, still sedated and intubated. Objective: Vital Signs Temp Pulse Resp BP Pulse Ox 36.7 C 78 22 H 110/51 L 100 05/01/17 08:00 05/01/17 10:00 05/01/17 10:00 05/01/17 10:00 05/01/17 10:00 Microbiology 04/30/17 14:55 Gram Stain - Final Lung - Bronchial Washings 04/24/17 14:50 Gram Stain - Final Other - Other Laboratory Results 05/01/17 04:50 05/01/17 10:50 04/30/17 05/01/17 05/02/17 05:59 05:59 05:59 Intake Total 3044 2888 Output Total 3260 5491 535 Balance -216 -2603 -535 PT 17.5 SEC (12.0-15.0) H 04/29/17 06:00 INR 1.44 (0.83-1.16) H 04/29/17 06:00 Laboratory Tests 05/01/17 10:50 Albumin 1.7 L CXR: Improved left base opacity. Vascular plethora. Images reviewed. Bronch wash: NOS Physical Exam - Physical Exam General Appearance: alert, no apparent distress EENT: normal ENT inspection Neck: normal inspection Respiratory: crackles Cardiac/Chest: regular rate, rhythm, edema (1+) Abdomen: normal bowel sounds, non-tender Skin: normal color, warm/dry Extremities: normal inspection Neuro/Psych: alert, No motor weakness ICD10 Worksheet Patient Problems: Problems Problem Status Onset Acute exacerbation of congestive heart failure Acute Atrial fibrillation with rapid ventricular response Acute DM type 1 (diabetes mellitus, type 1) Acute Perforated bowel Acute Renal failure Acute Altered mental status Acute Aspiration pneumonia Acute COPD (chronic obstructive pulmonary disease) Acute Lumbosacral radiculopathy at L5 Acute Narcotic dependency, continuous Acute Severe sepsis with septic shock Acute Spinal stenosis, lumbar Acute Tobacco dependence Acute
[2017-05-01] MEDS ORDERED: ALBUMIN 25% 200 ML IV ONE (11:45)
--- NOTE | 2017-05-01 12:07 | PCMIDPN ---
Assessment/Plan: Assessment/Plan: 1. Sepsis secondary to necrotic cecum/peritonitis/abscesses: -Polymicrobial bacteremia with staph epi, bacteroides noted -Abd cx with Klebsiella. no new growth from IR drainage of perisplenic collection so far. -Currently on levaquin + flagyl -s/p washout out on 04/16/17. - Large retroperitoneal bleed, s/p surgery on 04/27/17. -Continue with current antibiotics for now. Will need f/u imaging at some point Meds levaquin 750mg daily- 04/27/17 flagyl 500mg q8- 04/27/17 s/p zosyn 4.5gm q6- micafungin 100mg daily Subjective: Afebrile. intubated. awake, nods to questions. abd pain the same. nara drain in place with bloody drainage. chest tube noted. Objective: Vital Signs Temp Pulse Resp BP Pulse Ox 36.7 C 79 17 117/50 L 100 05/01/17 08:00 05/01/17 12:00 05/01/17 12:00 05/01/17 12:00 05/01/17 12:00 Microbiology 04/30/17 14:55 Gram Stain - Final Lung - Bronchial Washings 04/24/17 14:50 Gram Stain - Final Other - Other Laboratory Results 05/01/17 04:50 05/01/17 10:50 04/30/17 05/01/17 05/02/17 05:59 05:59 05:59 Intake Total 3044 2888 Output Total 3260 5135 535 [facility] -[phone] - Physical Exam General Appearance: alert, no apparent distress Respiratory: coarse breath sounds Cardiac/Chest: regular rate, rhythm Extremities: No swelling Abdomen: normal bowel sounds, distended, tender (mild), other (nara drain noted) Male Genitalia: ferguson Skin: No erythema ICD10 Worksheet Patient Problems: Problems Problem Status Onset Acute exacerbation of congestive heart failure Acute Atrial fibrillation with rapid ventricular response Acute DM type 1 (diabetes mellitus, type 1) Acute Perforated bowel Acute Renal failure Acute Altered mental status Acute Aspiration pneumonia Acute COPD (chronic obstructive pulmonary disease) Acute Lumbosacral radiculopathy at L5 Acute Narcotic dependency, continuous Acute Severe sepsis with septic shock Acute Spinal stenosis, lumbar Acute Tobacco dependence Acute
--- NOTE | 2017-05-01 12:07 | PCMIDPN ---
Assessment/Plan: Assessment/Plan: 1. Sepsis secondary to necrotic cecum/peritonitis/abscesses: -Polymicrobial bacteremia with staph epi, bacteroides noted -Abd cx with Klebsiella. no new growth from IR drainage of perisplenic collection so far. -Currently on levaquin + flagyl -s/p washout out on 04/16/17. - Large retroperitoneal bleed, s/p surgery on 04/27/17. -Continue with current antibiotics for now. Will need f/u imaging at some point Meds levaquin 750mg daily- 04/27/17 flagyl 500mg q8- 04/27/17 s/p zosyn 4.5gm q6- micafungin 100mg daily Subjective: Afebrile. intubated. awake, nods to questions. abd pain the same. nara drain in place with bloody drainage. chest tube noted. Objective: Vital Signs Temp Pulse Resp BP Pulse Ox 36.7 C 79 17 117/50 L 100 05/01/17 08:00 05/01/17 12:00 05/01/17 12:00 05/01/17 12:00 05/01/17 12:00 Microbiology 04/30/17 14:55 Gram Stain - Final Lung - Bronchial Washings 04/24/17 14:50 Gram Stain - Final Other - Other Laboratory Results 05/01/17 04:50 05/01/17 10:50 04/30/17 05/01/17 05/02/17 05:59 05:59 05:59 Intake Total 3044 2888 Output Total 3260 7583 535 [facility] [phone] - Physical Exam General Appearance: alert, no apparent distress Respiratory: coarse breath sounds Cardiac/Chest: regular rate, rhythm Extremities: No swelling Abdomen: normal bowel sounds, distended, tender (mild), other (nara drain noted) Male Genitalia: ferguson Skin: No erythema ICD10 Worksheet Patient Problems: Problems Problem Status Onset Acute exacerbation of congestive heart failure Acute Atrial fibrillation with rapid ventricular response Acute DM type 1 (diabetes mellitus, type 1) Acute Perforated bowel Acute Renal failure Acute Altered mental status Acute Aspiration pneumonia Acute COPD (chronic obstructive pulmonary disease) Acute Lumbosacral radiculopathy at L5 Acute Narcotic dependency, continuous Acute Severe sepsis with septic shock Acute Spinal stenosis, lumbar Acute Tobacco dependence Acute
--- NOTE | 2017-05-01 14:02 | HOSPPROG ---
Hospitalist Progress Note Assessment/Plan: 72 yo M with PMH of copd, chronic resp failure pw septic shock/polymicrobial bacteremia in setting of bowel perforation septic shock: off pressors X 3 days cvp up to 16-17 dose lasix prn given today, 05/01 pulm edema: appears to be mobilizing fluid today's cxr (interp by me) w pulm edema lasix 40 IV x1 acute blood loss anemia: source is RP bleed and R pleural effusion has received 15 units toal packed red cells this week transfuse 1 unit today 04/30 stable 05/01 L pleural effusion: was acutally LLL collapse that improved after bronch 04/30 hypocalcemia: resolved ?DIC: fibrinogen normal modestly elevated INR noted follow daily polymicrobial bacteremia d/t staph epi and bacteroides - repeat BCx from 04/20 with ngtd; ID following, on levoflagyl small bowel perforation with gross peritonitis 2/2 incarcerated/strangulated necrotic cecum - s/p re-anastamosis/fascial closure and wound vac placement and now repeat ex lap on 04/26--abdomen now closed fabricio: cr 1-1.7 overnight in setting of lasix. as above, hold lasix 04/29 superficial thrombus LUE: without dvt, holding AC for now given recent bleed and ongoing oozing and need for repeat procedure. Warm compresses. penile edema - elevate, follow acute on chronic pain on continuous narcotics on fentanyl a-fib s/p failed cardioversion, most recent ECG with sinus rhythm amiodarone dc'd 04/29 follow h/o MAZE procedure QT: follow daily w levoflox and amiodarone OK Qt 04/29 code: dnr as of 04/28 acute on chronic resp failure/COPD -reintubated now post operatively - baseline O2 2-4L TPN--trickle feeds started 04/30 ppx: started on HSC yesterday, given recurrent bleed stopped high risk, multiple active medical problems and tenuous status, moved back to ICU Subjective: case d/w dr castellanos. bronch unrevealing. cr improving Objective: Vital Signs Temp Pulse Resp BP Pulse Ox 36.7 C 79 17 117/50 L 100 05/01/17 08:00 05/01/17 12:00 05/01/17 12:00 05/01/17 12:00 05/01/17 12:00 Microbiology 04/30/17 14:55 Gram Stain - Final Lung - Bronchial Washings 04/24/17 14:50 Gram Stain - Final Other - Other Anaerobic Culture - Final Laboratory Results 05/01/17 04:50 05/01/17 10:50 04/30/17 05/01/17 05/02/17 05:59 05:59 05:59 Intake Total 3044 2888 100 Output Total 3260 5491 785 Balance -216 -2603 -685 PT 17.5 SEC (12.0-15.0) H 04/29/17 06:00 INR 1.44 (0.83-1.16) H 04/29/17 06:00 - Physical Exam Constitutional: no apparent distress, other (intubated, sedated) Eyes: anicteric sclera Ears, Nose, Mouth, Throat: moist mucous membranes Cardiovascular: regular rate and rhythym, No systolic murmur Respiratory: no respiratory distress, no rales or rhonchi Gastrointestinal: normoactive bowel sounds, soft, non-tender abdomen Genitourinary: no bladder fullness, ferguson in urethra Skin: warm, normal color Musculoskeletal: No full muscle strength Neurologic: No AAOx3 Psychiatric: No interacting appropriately ICD10 Worksheet Patient Problems: Problems Problem Status Onset Acute exacerbation of congestive heart failure Acute Atrial fibrillation with rapid ventricular response Acute DM type 1 (diabetes mellitus, type 1) Acute Perforated bowel Acute Renal failure Acute Altered mental status Acute Aspiration pneumonia Acute COPD (chronic obstructive pulmonary disease) Acute Lumbosacral radiculopathy at L5 Acute Narcotic dependency, continuous Acute Severe sepsis with septic shock Acute Spinal stenosis, lumbar Acute Tobacco dependence Acute
--- NOTE | 2017-05-01 14:45 | ASMTCMCOM ---
CM Note CM Note Notes: Patient following commands, continues on the vent has been bronced numerous times and replacement of blood products. Spoke with Rosalia, his daughter via phone for "Family Meeting" see Notes. Daughter reports that patient has chronic back pain s/p numerous surgeries. He was scheduled to see Dr. Shin today re: need for surgery. Daughter reports that patient has been unable to work for a long time. Patient has [facility]. [facility] called[facility] check on patient's progress. Patient will probably need SNF Rehab on discharge. He is unable to work with Therapies at this time. Date Signed: 05/01/2017 02:44 PM Electronically Signed By:Nella Moreno LCSW
[2017-05-01] MEDS ORDERED: POTASSIUM Cl (KCl) 50 ML IV ONE (18:16)
[2017-05-01] MEDS ORDERED: POTASSIUM Cl (KCl) 100 ML IV ONE (18:30)
[2017-05-01] MEDS: TPN W/ FAMOTIDINE 1 EA BAG IV SCH (20:44)
[2017-05-02] MEDS: fentaNYL/NACL 100 ML IV SCH ×2 (00:13→19:53)
[2017-05-02] MEDS: ALBUTEROL 200 PUFFS/18 GM MDI IH SCH ×6 (00:18→20:10)
[2017-05-02 05:15] LABS: PLATELET COUNT 156 10^3/uL (150-400)
--- NOTE | 2017-05-02 09:16 | SOAPPROG ---
SOAP Progress Note Assessment/Plan: Assessment/Plan: 72yo M s/p ex-lap for incarcerated/strangulated RIH c necrotic cecum, proximal perforated small bowel. S/p takeback washout for RP bleed. chest tubes for pleural effusion. septic shock. acute on chronic respiratory failure. 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 Drains scant and serosanguinous. Abd is soft, vac to good suction. Good bowel sounds and tolerating trickle feeds via OG. Afebrile. WBCs elevated but trending down, now at 14.5K. Possible extubation today. Once extubated, would consider swallow evaluation and then trial of PO intake. Apparently he was not eating well after his first surgery. Will d/w Dr. Lee and Dr. Avendaño to continue to follow pt in am. 05/02/17 09:16 Objective: Vital Signs Temp Pulse Resp BP Pulse Ox 36.5 C 80 12 122/62 H 100 05/02/17 04:00 05/02/17 08:28 05/02/17 08:28 05/02/17 06:00 05/02/17 08:28 Microbiology 04/26/17 15:20 Blood Culture - Final Blood 04/26/17 15:20 Blood Culture - Final Blood 04/30/17 14:55 Gram Stain - Final Lung - Bronchial Washings 04/24/17 14:50 Gram Stain - Final Other - Other Anaerobic Culture - Final Laboratory Results 05/02/17 04:55 05/02/17 04:55 05/01/17 05/02/17 05/03/17 05:59 05:59 05:59 Intake Total 2888 3247.4 Output Total 3314 5806 Balance -2603 -2582.6 PT 17.5 SEC (12.0-15.0) H 04/29/17 06:00 INR 1.44 (0.83-1.16) H 04/29/17 06:00 ICD10 Worksheet Patient Problems: Problems Problem Status Onset Acute exacerbation of congestive heart failure Acute Atrial fibrillation with rapid ventricular response Acute DM type 1 (diabetes mellitus, type 1) Acute Perforated bowel Acute Renal failure Acute Altered mental status Acute Aspiration pneumonia Acute COPD (chronic obstructive pulmonary disease) Acute Lumbosacral radiculopathy at L5 Acute Narcotic dependency, continuous Acute Severe sepsis with septic shock Acute Spinal stenosis, lumbar Acute Tobacco dependence Acute
--- NOTE | 2017-05-02 09:16 | SOAPPROG ---
SOAP Progress Note Assessment/Plan: Assessment/Plan: 72yo M s/p ex-lap for incarcerated/strangulated RIH c necrotic cecum, proximal perforated small bowel. S/p takeback washout for RP bleed. chest tubes for pleural effusion. septic shock. acute on chronic respiratory failure. 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 Drains scant and serosanguinous. Abd is soft, vac to good suction. Good bowel sounds and tolerating trickle feeds via OG. Afebrile. WBCs elevated but trending down, now at 14.5K. Possible extubation today. Once extubated, would consider swallow evaluation and then trial of PO intake. Apparently he was not eating well after his first surgery. Will d/w Dr. Lee and Dr. Avendaño to continue to follow pt in am. 05/02/17 09:16 Objective: Vital Signs Temp Pulse Resp BP Pulse Ox 36.5 C 80 12 122/62 H 100 05/02/17 04:00 05/02/17 08:28 05/02/17 08:28 05/02/17 06:00 05/02/17 08:28 Microbiology 04/26/17 15:20 Blood Culture - Final Blood 04/26/17 15:20 Blood Culture - Final Blood 04/30/17 14:55 Gram Stain - Final Lung - Bronchial Washings 04/24/17 14:50 Gram Stain - Final Other - Other Anaerobic Culture - Final Laboratory Results 05/02/17 04:55 05/02/17 04:55 05/01/17 05/02/17 05/03/17 05:59 05:59 05:59 Intake Total 2888 3247.4 Output Total 5316 5873 Balance -2603 -2582.6 PT 17.5 SEC (12.0-15.0) H 04/29/17 06:00 INR 1.44 (0.83-1.16) H 04/29/17 06:00 ICD10 Worksheet Patient Problems: Problems Problem Status Onset Acute exacerbation of congestive heart failure Acute Atrial fibrillation with rapid ventricular response Acute DM type 1 (diabetes mellitus, type 1) Acute Perforated bowel Acute Renal failure Acute Altered mental status Acute Aspiration pneumonia Acute COPD (chronic obstructive pulmonary disease) Acute Lumbosacral radiculopathy at L5 Acute Narcotic dependency, continuous Acute Severe sepsis with septic shock Acute Spinal stenosis, lumbar Acute Tobacco dependence Acute
--- NOTE | 2017-05-02 09:16 | SOAPPROG ---
SOAP Progress Note Assessment/Plan: Assessment/Plan: 72yo M s/p ex-lap for incarcerated/strangulated RIH c necrotic cecum, proximal perforated small bowel. S/p takeback washout for RP bleed. chest tubes for pleural effusion. septic shock. acute on chronic respiratory failure. 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 Drains scant and serosanguinous. Abd is soft, vac to good suction. Good bowel sounds and tolerating trickle feeds via OG. Afebrile. WBCs elevated but trending down, now at 14.5K. Possible extubation today. Once extubated, would consider swallow evaluation and then trial of PO intake. Apparently he was not eating well after his first surgery. Will d/w Dr. Lee and Dr. Avendaño to continue to follow pt in am. 05/02/17 09:16 Objective: Vital Signs Temp Pulse Resp BP Pulse Ox 36.5 C 80 12 122/62 H 100 05/02/17 04:00 05/02/17 08:28 05/02/17 08:28 05/02/17 06:00 05/02/17 08:28 Microbiology 04/26/17 15:20 Blood Culture - Final Blood 04/26/17 15:20 Blood Culture - Final Blood 04/30/17 14:55 Gram Stain - Final Lung - Bronchial Washings 04/24/17 14:50 Gram Stain - Final Other - Other Anaerobic Culture - Final Laboratory Results 05/02/17 04:55 05/02/17 04:55 05/01/17 05/02/17 05/03/17 05:59 05:59 05:59 Intake Total 2888 3247.4 Output Total 8739 5814 Balance -2603 -2582.6 PT 17.5 SEC (12.0-15.0) H 04/29/17 06:00 INR 1.44 (0.83-1.16) H 04/29/17 06:00 ICD10 Worksheet Patient Problems: Problems Problem Status Onset Acute exacerbation of congestive heart failure Acute Atrial fibrillation with rapid ventricular response Acute DM type 1 (diabetes mellitus, type 1) Acute Perforated bowel Acute Renal failure Acute Altered mental status Acute Aspiration pneumonia Acute COPD (chronic obstructive pulmonary disease) Acute Lumbosacral radiculopathy at L5 Acute Narcotic dependency, continuous Acute Severe sepsis with septic shock Acute Spinal stenosis, lumbar Acute Tobacco dependence Acute
[2017-05-02] MEDS: CHLORHEXIDINE GLUCONATE 15 ML UDL PO SCH ×2 (09:22→21:33)
[2017-05-02] MEDS: COLLAGENASE 30 GM OINTMENT TP SCH (09:22)
[2017-05-02] MEDS: PREGABALIN 75 MG CAP PO SCH ×3 (09:23→19:31)
[2017-05-02] MEDS: NICOTINE 21 MG/24 HR PATCH TD SCH (09:23)
--- NOTE | 2017-05-02 09:31 | HOSPPROG ---
Hospitalist Progress Note Assessment/Plan: 72 yo M with PMH of copd, chronic resp failure presenting with septic shock/ polymicrobial bacteremia in setting of bowel perforation septic shock: off pressors, CVP stable acute respiratory failure with pulm edema and volume overload: on vent. Weight still up 20 kg, though diuresing now. repeat Lasix today may be able to extubate today discussed with Dr. Ziegler polymicrobial bacteremia d/t staph epi and bacteroides, abdominal source - repeat BCx from 04/20 with ngtd; ID following, on levo plus flagyl from zosyn small bowel perforation with gross peritonitis 2/2 incarcerated/strangulated necrotic cecum - s/p re-anastamosis/fascial closure and wound vac placement - repeat ex lap on 04/26 due to RP hemorrhage / hematoma, abdomen now closed acute blood loss anemia: source is RP bleed and R pleural effusion, hgb stable this am has received 15 units toal packed red cells this week L pleural effusion: was actually LLL collapse that improved after bronch 04/30 ?DIC: fibrinogen normal modestly elevated INR noted follow daily fabricio: was likely hemodynamically mediated, Cr now normalized after diuresis superficial thrombus LUE: without dvt, holding AC for now given recent bleed and ongoing oozing. Warm compresses. penile edema - elevate, follow acute on chronic pain on continuous narcotics on fentanyl a-fib s/p failed cardioversion, attempted x4 on arrival, most recent ECG with sinus rhythm amiodarone dc'd 04/29 h/o MAZE procedure anticoagulated deferred due to bleeding as above QT: follow daily w levoflox and amiodarone OK Qt 05/02 code: dnr as of 04/28 acute on chronic resp failure/COPD -reintubated now post operatively - baseline O2 2-4L TPN--trickle feeds started 04/30, on TPN as well ppx: cont to defer pharmacologic pplx given massive bleeding, cont SCD's, aim to get OOB once extubated, consider BRITTANY in 1-2 days high risk, multiple active medical problems and tenuous status, cont ICU Subjective: Pt intubated, but awake and alert, following commands. No fevers. No pain. Tolerating trickle feeds. Objective: Vital Signs Temp Pulse Resp BP Pulse Ox 37.1 C 78 16 117/47 L 100 05/02/17 09:07 05/02/17 09:07 05/02/17 09:07 05/02/17 09:07 05/02/17 09:07 Microbiology 04/26/17 15:20 Blood Culture - Final Blood 04/26/17 15:20 Blood Culture - Final Blood 04/30/17 14:55 Gram Stain - Final Lung - Bronchial Washings 04/24/17 14:50 Gram Stain - Final Other - Other Anaerobic Culture - Final Laboratory Results 05/02/17 04:55 05/02/17 04:55 05/01/17 05/02/17 05/03/17 05:59 05:59 05:59 Intake Total 2888 3247.4 Output Total 5491 5830 Balance -2603 -2582.6 PT 17.5 SEC (12.0-15.0) H 04/29/17 06:00 INR 1.44 (0.83-1.16) H 04/29/17 06:00 - Physical Exam Constitutional: no apparent distress Eyes: PERRL Ears, Nose, Mouth, Throat: moist mucous membranes Cardiovascular: regular rate and rhythym Respiratory: no respiratory distress, inspiratory crackles Gastrointestinal: other (soft, mild distention, wound vac in place, no rigidity , +BS) Skin: warm Musculoskeletal: full muscle strength Neurologic: AAOx3 Psychiatric: interacting appropriately ICD10 Worksheet Patient Problems: Problems Problem Status Onset Acute exacerbation of congestive heart failure Acute Atrial fibrillation with rapid ventricular response Acute DM type 1 (diabetes mellitus, type 1) Acute Perforated bowel Acute Renal failure Acute Altered mental status Acute Aspiration pneumonia Acute COPD (chronic obstructive pulmonary disease) Acute Lumbosacral radiculopathy at L5 Acute Narcotic dependency, continuous Acute Severe sepsis with septic shock Acute Spinal stenosis, lumbar Acute Tobacco dependence Acute
[2017-05-02] MEDS ORDERED: FUROSEMIDE 40 MG/4 ML VIAL IVP ONE ×3 (09:47→13:30)
[2017-05-02] MEDS ORDERED: ALBUMIN 25% 100 ML IV ONE (10:59)
--- NOTE | 2017-05-02 11:24 | PDINTPN ---
Analytical Technician Progress Note Assessment/Plan: Assessment: * Acute respiratory failure-stable on mechanical ventilation. Oxygen requirements improved. -did better with weaning parameters today. May be able to be extubated, although increased pulmonary edema/effusion could delay that. * Atelectasis-s/p bronchs, secretions reduced on last bronch 05/01 * Large right pleural effusion-chest tube placed. Draining serosanguinous fluid. Output <200/day, but could persists with edema and left effusion, so may benefit from keeping CT in for another day or two. * Severe anemia-hemoglobin & hematocrit up after transfusion, diuresis. * YOLANDA: Improved, good urine output. * Shock-resolved Off pressors * Status post exploratory laparotomy * Sedation-adequate. Patient is currently awake. * Hypokalemia-resolved * COPD * Prostate cancer * Chronic back pain * With stress ulcer prophylaxis * VTE prophylaxis Plan: CPAP as tolerated. If doing well after lasix/albumin, may extubate. 05/02/17 11:47 Subjective: More alert, denies pain, dyspnea. Objective: Vital Signs Temp Pulse Resp BP Pulse Ox 37.1 C 78 16 117/47 L 100 05/02/17 09:07 05/02/17 09:07 05/02/17 09:07 05/02/17 09:07 05/02/17 09:07 Microbiology 04/26/17 15:20 Blood Culture - Final Blood 04/26/17 15:20 Blood Culture - Final Blood 04/30/17 14:55 Gram Stain - Final Lung - Bronchial Washings 04/24/17 14:50 Gram Stain - Final Other - Other Anaerobic Culture - Final Laboratory Results 05/02/17 04:55 05/01/17 05/02/17 05/03/17 05:59 05:59 05:59 Intake Total 2888 3247.4 Output Total 5491 5830 Balance -2603 -1942.6 PT 17.5 SEC (12.0-15.0) H 04/29/17 06:00 INR 1.44 (0.83-1.16) H 04/29/17 06:00 CXR: Increased interstitial/alveolar edema R>L, increased left effusion. Images reviewed. Physical Exam - Physical Exam General Appearance: alert, no apparent distress EENT: normal ENT inspection Neck: normal inspection Respiratory: lungs clear, normal breath sounds Cardiac/Chest: regular rate, rhythm, edema (2+ anasarca) Abdomen: non-tender, soft, No normal bowel sounds (diminished) Skin: normal color, warm/dry Extremities: normal inspection Neuro/Psych: alert, normal mood/affect, No motor weakness ICD10 Worksheet Patient Problems: Problems Problem Status Onset Acute exacerbation of congestive heart failure Acute Atrial fibrillation with rapid ventricular response Acute DM type 1 (diabetes mellitus, type 1) Acute Perforated bowel Acute Renal failure Acute Altered mental status Acute Aspiration pneumonia Acute COPD (chronic obstructive pulmonary disease) Acute Lumbosacral radiculopathy at L5 Acute Narcotic dependency, continuous Acute Severe sepsis with septic shock Acute Spinal stenosis, lumbar Acute Tobacco dependence Acute
[2017-05-02] MEDS ORDERED: POTASSIUM Cl (KCl) 50 ML IV ONE (13:57)
--- NOTE | 2017-05-02 14:43 | WOCRNPDOC ---
WOCRN Advanced Assessment Note - Skin Integrity Problem, Advanced Assess Bilateral Lower Leg Dermatitis Dressing Type: Open to Air Monty Wound Tissue: Hemosiderin Staining, Venous Dermatitis Skin Integrity Problem Comment: Needs moisturizing. Left Lower Abdomen Pressure Injury Dressing Type: Open to Air Site Measurement - Head-to-Toe Length X Width X Depth (cm): 0.5x0.5x0 meausres 2.5 cm from 10 to 4 oclock. Pressure Injury Stage: Stage 1, Service Order Dispatcher Chief Related Pressure Injury (KAREN tubing) Pressure Injury Present on Admit: No Skin Integrity Problem Comment: Tegaderm was placed over drain tube pressing the tube onto the patient's skin. This caused a stage 1 pressure injury. Tegaderm was removed. Wound care will recheck this area on sunday. Medial Abdomen Surgical Wound/Incision Dressing Type: Black Vac Foam (x1), Wound Vac Dressing Description: Clean/Dry, Intact Exudate Amount: Minimal Exudate Characteristic(s): Serosanguinous Integumentary Issue Intervention: Dressing Changed Wound Bed Constitution: Smooth Tissue Site Measurement - Head-to-Toe Length X Width X Depth (cm): 23.5x3.5x3.6 Skin Integrity Problem Comment: Cleaned with ns and gauze. Skin prep monty wound and draped. 1 piece of medium simplace foam applied to wound bed and then a second small trac landing pad added. Vac restarted at -125 mm Hg continuous suction without leaks. Mich CASTELLANO assisted with care. Next vac change Sunday by wound rn.
[2017-05-02] MEDS ORDERED: POTASSIUM Cl (KCl) 100 ML IV ONE (15:45)
--- NOTE | 2017-05-02 17:20 | PCMIDPN ---
Assessment/Plan: Assessment: Septic shock secondary to peritonitis after incarcerated cecum became necrotic. Patient improved in the interim but then declined secondary to bleeding intra- abdominally from an unknown source. Patient continues to improve although he still remains on the ventilator. Continuing with Levaquin and Flagyl empiric therapy. Plan: 1. Continue Levaquin and Flagyl. 2. Follow-up clinical course. 05/02/17 18:34 Subjective: Patient is alert although intubated. No new complaint. No fevers or chills. Objective: Levaquin # 6 Flagyl # 5 Vital Signs Temp Pulse Resp BP Pulse Ox 37.1 C 89 23 H 130/55 H 100 05/02/17 09:07 05/02/17 16:00 05/02/17 16:00 05/02/17 16:00 05/02/17 16:00 Microbiology 04/30/17 14:55 Gram Stain - Final Lung - Bronchial Washings 04/26/17 15:20 Blood Culture - Final Blood 04/26/17 15:20 Blood Culture - Final Blood 04/24/17 14:50 Gram Stain - Final Other - Other Anaerobic Culture - Final Laboratory Results 05/02/17 04:55 05/02/17 11:11 05/01/17 05/02/17 05/03/17 05:59 05:59 05:59 Intake Total 2888 3247.4 243.3 Output Total 5491 5830 2650 Balance -2603 -2582.6 -2406.7 - Physical Exam General Appearance: WD/WN, alert, no apparent distress, non-toxic Respiratory: lungs clear, normal breath sounds, No respiratory distress Cardiac/Chest: regular rate, rhythm, No tachycardia Abdomen: soft, No non-tender, No mass Skin: normal color, warm/dry, No rash Neuro/Psych: alert ICD10 Worksheet Patient Problems: Problems Problem Status Onset Acute exacerbation of congestive heart failure Acute Atrial fibrillation with rapid ventricular response Acute DM type 1 (diabetes mellitus, type 1) Acute Perforated bowel Acute Renal failure Acute Altered mental status Acute Aspiration pneumonia Acute COPD (chronic obstructive pulmonary disease) Acute Lumbosacral radiculopathy at L5 Acute Narcotic dependency, continuous Acute Severe sepsis with septic shock Acute Spinal stenosis, lumbar Acute Tobacco dependence Acute
[2017-05-02] MEDS: FUROSEMIDE 20 MG/2 ML VIAL IVP SCH (18:11)
[2017-05-02] MEDS: TPN W/ FAMOTIDINE 1 EA BAG IV SCH (21:33)
[2017-05-03] MEDS: ALBUTEROL 200 PUFFS/18 GM MDI IH SCH ×3 (00:10→10:47)
[2017-05-03] MEDS ORDERED: POTASSIUM Cl (KCl) 100 ML IV ONE ×3 (00:57→16:30)
[2017-05-03] MEDS: FUROSEMIDE 20 MG/2 ML VIAL IVP SCH ×2 (01:33→10:56)
[2017-05-03] MEDS: fentaNYL/NACL 100 ML IV SCH ×4 (04:06→22:22)
[2017-05-03 05:03] LABS: PLATELET COUNT 175 10^3/uL (150-400)
[2017-05-03] MEDS ORDERED: POTASSIUM Cl (KCl) 50 ML IV ONE (07:16)
[2017-05-03] MEDS: PREGABALIN 75 MG CAP PO SCH ×3 (07:16→21:20)
[2017-05-03] MEDS: NICOTINE 21 MG/24 HR PATCH TD SCH (08:01)
[2017-05-03] MEDS: CHLORHEXIDINE GLUCONATE 15 ML UDL PO SCH ×2 (08:01→20:14)
[2017-05-03] MEDS: COLLAGENASE 30 GM OINTMENT TP SCH (08:01)
--- NOTE | 2017-05-03 08:52 | SOAPPROG ---
SOAP Progress Note Assessment/Plan: Assessment/Plan: 72yo M s/p ex-lap for incarcerated/strangulated RIGH c necrotic cecum, proximal perforated small bowel. S/p takeback washout for RP bleed, now closed - Pain is controlled - Abdomen is soft and appropriately tender. Has good bowel sounds. VAC to midline with minimal output. JPs slowing and are serosang. - Swallow eval today, ok for clears or modified liquids. Wait for full diet advancement until he has some bowel function - WBC 16, afebrile. Cont abx - PT/OT - Making progress. Likely tx out of the ICU today or tomorrow 04/13/17 05:14 04/16/17 09:19 04/16/17 09:24 04/16/17 09:29 04/17/17 10:27 04/19/17 08:27 04/20/17 09:58 04/21/17 10:31 04/22/17 09:16 04/23/17 13:20 04/24/17 10:50 04/26/17 07:16 04/27/17 13:27 04/30/17 10:49 05/01/17 10:01 05/03/17 08:50 Subjective: Extubated, states "I feel great!" Objective: Vital Signs Temp Pulse Resp BP Pulse Ox 37.0 C 88 19 123/53 H 100 05/03/17 08:00 05/03/17 08:00 05/03/17 08:00 05/03/17 08:00 05/03/17 08:00 Microbiology 04/30/17 14:55 Gram Stain - Final Lung - Bronchial Washings Laboratory Results 05/03/17 04:40 05/03/17 04:40 05/02/17 05/03/17 05/04/17 05:59 05:59 05:59 Intake Total 3247.4 2655.7 Output Total 5887 7490 Balance -2582.6 -4834.3 PT 17.5 SEC (12.0-15.0) H 04/29/17 06:00 INR 1.44 (0.83-1.16) H 04/29/17 06:00 ICD10 Worksheet Patient Problems: Problems Problem Status Onset Acute exacerbation of congestive heart failure Acute Atrial fibrillation with rapid ventricular response Acute DM type 1 (diabetes mellitus, type 1) Acute Perforated bowel Acute Renal failure Acute Altered mental status Acute Aspiration pneumonia Acute COPD (chronic obstructive pulmonary disease) Acute Lumbosacral radiculopathy at L5 Acute Narcotic dependency, continuous Acute Severe sepsis with septic shock Acute Spinal stenosis, lumbar Acute Tobacco dependence Acute
--- NOTE | 2017-05-03 12:00 | ASMTCMCOM ---
CM Note CM Note Notes: Patient has been making gains the past few days. Extubated last night and doing well. Still has wound vac to abdomen. He will have a swallow eval today with TAXATION AGENT and is ok'ed for clear liquids. Goal to advance diet when bowel function more stable. Patient will hopefully transfer out of ICU tomorrow. Spiritual Care has been in touch with his daughter/ANASTACIA Lindsey and she appreciates the weekly check-ins. She is realistic about her father's needs; earlier in his hospitalization, she had been in favor of SNF rehab at [facility], so that will still be an option as patient nears d/c. I spoke dee dee Nevarez at [facility] who confirms that the facility will accept him if he chooses to come there. CM will follow. Date Signed: 05/03/2017 11:59 AM Electronically Signed By:Fariba Pimentel RN
--- NOTE | 2017-05-03 12:00 | ASMTCMCOM ---
CM Note CM Note Notes: Patient has been making gains the past few days. Extubated last night and doing well. Still has wound vac to abdomen. He will have a swallow eval today with TURN DOWN ATTENDANT and is ok'ed for clear liquids. Goal to advance diet when bowel function more stable. Patient will hopefully transfer out of ICU tomorrow. Spiritual Care has been in touch with his daughter/ANASTACIA Lindsey and she appreciates the weekly check-ins. She is realistic about her father's needs; earlier in his hospitalization, she had been in favor of SNF rehab at [facility], so that will still be an option as patient nears d/c. I spoke dee dee Nevarez at [facility] who confirms that the facility will accept him if he chooses to come there. CM will follow. Date Signed: 05/03/2017 11:59 AM Electronically Signed By:Fariba Pimentel RN
--- NOTE | 2017-05-03 12:00 | ASMTCMCOM ---
CM Note CM Note Notes: Patient has been making gains the past few days. Extubated last night and doing well. Still has wound vac to abdomen. He will have a swallow eval today with [employer] TECHNICAL MANAGER and is ok'ed for clear liquids. Goal to advance diet when bowel function more stable. Patient will hopefully transfer out of ICU tomorrow. Spiritual Care has been in touch with his daughter/ANASTACIA Lindsey and she appreciates the weekly check-ins. She is realistic about her father's needs; earlier in his hospitalization, she had been in favor of SNF rehab at [facility], so that will still be an option as patient nears d/c. I spoke dee dee Nevarez at [facility] who confirms that the facility will accept him if he chooses to come there. CM will follow. Date Signed: 05/03/2017 11:59 AM Electronically Signed By:Fariba Pimentel RN
--- NOTE | 2017-05-03 14:09 | PDINTPN ---
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 * Atelectasis-s/p bronchs, secretions reduced on last bronch 05/01 * Large right pleural effusion-chest tube placed. Draining serosanguinous fluid. Output down to 90ml/day, may be able to D/C CT soon * Severe anemia-hemoglobin & hematocrit up after transfusion, diuresis. * YOLANDA: Improved, good urine output. * Shock-resolved, off pressors * Status post exploratory laparotomy * Hypokalemia-resolved * COPD * Prostate cancer * Chronic back pain. On Fentanyl gtt. Not yet ready to swallow MS Contin. * With stress ulcer prophylaxis * VTE prophylaxis * Nutrition: On TPN. Was getting some TF, but now off since extubated, and has not passed swallow eval. Plan:Continue fentanyl gtt for now. Hopefully can start MS Contin tomorrow. Increase activity. I'll stop Lasix scheduled, change to PRN. Repeat CXR tomorrow 05/03/17 14:14 Subjective: Feeels better since being extubated. Speech improving. C/O abdominal>back pain. Objective: Vital Signs Temp Pulse Resp BP Pulse Ox 37.0 C 86 16 137/59 H 100 05/03/17 08:00 05/03/17 12:00 05/03/17 12:00 05/03/17 12:00 05/03/17 12:00 Microbiology 04/30/17 14:55 Gram Stain - Final Lung - Bronchial Washings Laboratory Results 05/03/17 04:40 05/03/17 04:40 05/02/17 05/03/17 05/04/17 05:59 05:59 05:59 Intake Total 3247.4 2655.7 Output Total 5830 7490 Balance -2582.6 -4834.3 PT 17.5 SEC (12.0-15.0) H 04/29/17 06:00 INR 1.44 (0.83-1.16) H 04/29/17 06:00 Physical Exam - Physical Exam General Appearance: alert, no apparent distress EENT: normal ENT inspection Neck: normal inspection Respiratory: lungs clear, normal breath sounds Cardiac/Chest: regular rate, rhythm, edema (1+) Abdomen: normal bowel sounds, non-tender Extremities: normal inspection Neuro/Psych: alert, normal mood/affect, oriented x 3, No motor weakness ICD10 Worksheet Patient Problems: Problems Problem Status Onset Acute exacerbation of congestive heart failure Acute Atrial fibrillation with rapid ventricular response Acute DM type 1 (diabetes mellitus, type 1) Acute Perforated bowel Acute Renal failure Acute Altered mental status Acute Aspiration pneumonia Acute COPD (chronic obstructive pulmonary disease) Acute Lumbosacral radiculopathy at L5 Acute Narcotic dependency, continuous Acute Severe sepsis with septic shock Acute Spinal stenosis, lumbar Acute Tobacco dependence Acute
--- NOTE | 2017-05-03 14:57 | GOP ---
[f rep st] OPERATIVE REPORT DATE OF OPERATION: 04/28/2017 SURGEON: Noe Lee MD ANESTHESIOLOGIST: Nito Frazier MD. PREOPERATIVE DIAGNOSIS: Retroperitoneal hemorrhage. POSTOPERATIVE DIAGNOSIS: Retroperitoneal hemorrhage. PROCEDURE PERFORMED: Exploratory laparotomy with packing removal and abdominal lavage and fascial cl osure. FINDINGS: Patient was found to have all 6 packs removed. There were no fresh bleeding from the site and no evidence of any infection or other problems. His bowels were markedly distended. DESCRIPTION OF PROCEDURE: Patient was taken to the operating room where he received satisfactory gen eral endotracheal anesthesia by Dr. Frazier, placed in the supine position, prepped and draped in [facility] sterile fashion. The previous wound VAC and the Abthera were removed and the abdomen was thoroug hly explored. There were no active bleeding and no real accumulation of any blood. The abdominal re troperitoneal packs were then removed and all 6 were accounted for. The area was copiously irrigated . A 19-Sami KAREN drain was brought in through a separate stab incision and placed in the retroperito april cavity and secured to the skin with a 2-0 silk suture. The bowels were replaced in the abdomen and with some effort the midline fascia was approximated with a running #1 PDS suture reinforced monty odically with #1 Vicryl interrupted sutures. The fascia was closed without compromising his respirat ory status, and the skin and subcu were left open with a wound VAC on the incision. He tolerated the procedure well. There were no complications. He was taken to recovery room in good condition. /[id number]/MODL
--- NOTE | 2017-05-03 14:57 | GOP ---
[f rep st] OPERATIVE REPORT DATE OF OPERATION: 04/28/2017 SURGEON: Noe Lee MD ANESTHESIOLOGIST: Nito Frazier MD. PREOPERATIVE DIAGNOSIS: Retroperitoneal hemorrhage. POSTOPERATIVE DIAGNOSIS: Retroperitoneal hemorrhage. PROCEDURE PERFORMED: Exploratory laparotomy with packing removal and abdominal lavage and fascial cl osure. FINDINGS: Patient was found to have all 6 packs removed. There were no fresh bleeding from the site and no evidence of any infection or other problems. His bowels were markedly distended. DESCRIPTION OF PROCEDURE: Patient was taken to the operating room where he received satisfactory gen eral endotracheal anesthesia by Dr. Frazier, placed in the supine position, prepped and draped in [facility] sterile fashion. The previous wound VAC and the Abthera were removed and the abdomen was thoroug hly explored. There were no active bleeding and no real accumulation of any blood. The abdominal re troperitoneal packs were then removed and all 6 were accounted for. The area was copiously irrigated . A 19-Croatian KAREN drain was brought in through a separate stab incision and placed in the retroperito april cavity and secured to the skin with a 2-0 silk suture. The bowels were replaced in the abdomen and with some effort the midline fascia was approximated with a running #1 PDS suture reinforced monty odically with #1 Vicryl interrupted sutures. The fascia was closed without compromising his respirat ory status, and the skin and subcu were left open with a wound VAC on the incision. He tolerated the procedure well. There were no complications. He was taken to recovery room in good condition. /[id number]/MODL
--- NOTE | 2017-05-03 14:57 | GOP ---
[f rep st] OPERATIVE REPORT DATE OF OPERATION: 04/28/2017 SURGEON: Noe Lee MD ANESTHESIOLOGIST: Nito Frazier MD. PREOPERATIVE DIAGNOSIS: Retroperitoneal hemorrhage. POSTOPERATIVE DIAGNOSIS: Retroperitoneal hemorrhage. PROCEDURE PERFORMED: Exploratory laparotomy with packing removal and abdominal lavage and fascial cl osure. FINDINGS: Patient was found to have all 6 packs removed. There were no fresh bleeding from the site and no evidence of any infection or other problems. His bowels were markedly distended. DESCRIPTION OF PROCEDURE: Patient was taken to the operating room where he received satisfactory gen eral endotracheal anesthesia by Dr. Frazier, placed in the supine position, prepped and draped in [facility] sterile fashion. The previous wound VAC and the Abthera were removed and the abdomen was thoroug hly explored. There were no active bleeding and no real accumulation of any blood. The abdominal re troperitoneal packs were then removed and all 6 were accounted for. The area was copiously irrigated . A 19-[place]ian KAREN drain was brought in through a separate stab incision and placed in the retroperito april cavity and secured to the skin with a 2-0 silk suture. The bowels were replaced in the abdomen and with some effort the midline fascia was approximated with a running #1 PDS suture reinforced monty odically with #1 Vicryl interrupted sutures. The fascia was closed without compromising his respirat ory status, and the skin and subcu were left open with a wound VAC on the incision. He tolerated the procedure well. There were no complications. He was taken to recovery room in good condition. /[id number]/MODL
--- NOTE | 2017-05-03 16:31 | PCMIDPN ---
Assessment/Plan: Assessment: Septic shock secondary to peritonitis after incarcerated cecum became necrotic. Patient is significantly clinically improved over the last 2 days. Continuing with Levaquin and Flagyl empiric therapy. Plan: 1. Continue Levaquin and Flagyl. 2. Follow-up clinical course. 05/02/17 18:34 05/03/17 16:11 Subjective: Patient is awake and alert. He is smiling and feels much better. Still with abdominal pain. No fevers or chills. Objective: Levaquin # 7 Flagyl # 6 Vital Signs Temp Pulse Resp BP Pulse Ox 37.0 C 87 16 131/50 H 100 05/03/17 08:00 05/03/17 14:00 05/03/17 14:00 05/03/17 14:00 05/03/17 14:00 Microbiology 04/30/17 14:55 Gram Stain - Final Lung - Bronchial Washings Laboratory Results 05/03/17 04:40 05/02/17 05/03/17 05/04/17 05:59 05:59 05:59 Intake Total 3247.4 2655.7 Output Total 5830 7490 Balance -2582.6 -4834.3 - Physical Exam General Appearance: WD/WN, alert, no apparent distress, non-toxic Respiratory: lungs clear, normal breath sounds, No respiratory distress Cardiac/Chest: regular rate, rhythm, No tachycardia Extremities: non-tender, normal inspection Abdomen: soft, tender, No non-tender, No mass Skin: normal color, warm/dry, No rash Neuro/Psych: alert, oriented x 3 ICD10 Worksheet Patient Problems: Problems Problem Status Onset Acute exacerbation of congestive heart failure Acute Atrial fibrillation with rapid ventricular response Acute DM type 1 (diabetes mellitus, type 1) Acute Perforated bowel Acute Renal failure Acute Altered mental status Acute Aspiration pneumonia Acute COPD (chronic obstructive pulmonary disease) Acute Lumbosacral radiculopathy at L5 Acute Narcotic dependency, continuous Acute Severe sepsis with septic shock Acute Spinal stenosis, lumbar Acute Tobacco dependence Acute
--- NOTE | 2017-05-03 16:54 | HOSPPROG ---
Hospitalist Progress Note Assessment/Plan: 72 yo M with PMH of copd, chronic resp failure presenting with septic shock/ polymicrobial bacteremia in setting of bowel perforation septic shock: off pressors, CVP stable acute respiratory failure with pulm edema and volume overload: extubated 05/02, now 100% on 2 LPM, aggressively diuresed over past few days -defer lasix today polymicrobial bacteremia d/t staph epi and bacteroides, abdominal source - repeat BCx from 04/20 with ngtd; ID following, on levo plus flagyl from zosyn small bowel perforation with gross peritonitis 2/ incarcerated/strangulated necrotic cecum - s/p re-anastamosis/fascial closure and wound vac placement - repeat ex lap on 04/26 due to RP hemorrhage / hematoma, abdomen now closed after return to OR for packing removal - awaiting return of bowel function acute blood loss anemia: source is RP bleed and R pleural effusion, hgb stable this am has received 15 units total packed red cells this week L pleural effusion: was actually LLL collapse that improved after bronch 04/30 fabricio: was likely hemodynamically mediated, Cr now normalized after diuresis, though persistent azotemia noted superficial thrombus LUE: without dvt, holding AC for now given recent bleed and ongoing oozing. Warm compresses. penile edema - elevate, follow acute on chronic pain on continuous narcotics on fentanyl, resume oral MS Contin when he has return of bowel function a-fib s/p failed cardioversion, attempted x4 on arrival, most recent ECG with sinus rhythm amiodarone dc'd 04/29 h/o MAZE procedure anticoagulated deferred due to bleeding as above QT: follow daily w levoflox and amiodarone OK Qt 05/02 code: dnr as of 04/28 acute on chronic resp failure/COPD - on baseline O2 of 2 LPM now TPN--trickle feeds, TPN, resume oral when bowel function improved ppx: cont to defer pharmacologic pplx given massive bleeding, cont SCD's, aim to get OOB, ambulate, consider BRITTANY in 1-2 days high risk, multiple active medical problems and tenuous status, cont ICU, may be able to transfer to floor tomorrow Subjective: Pt feels well. Denies pain, wants to turn in bed. +flatus, no fevers. breathing ok, no CP or SOB Objective: Vital Signs Temp Pulse Resp BP Pulse Ox 37.0 C 86 16 132/50 H 100 05/03/17 08:00 05/03/17 16:00 05/03/17 16:00 05/03/17 16:00 05/03/17 16:00 Microbiology 04/30/17 14:55 Gram Stain - Final Lung - Bronchial Washings Laboratory Results 05/03/17 04:40 05/03/17 15:40 05/02/17 05/03/17 05/04/17 05:59 05:59 05:59 Intake Total 3247.4 2655.7 Output Total 5830 7490 Balance -2582.6 -4834.3 PT 17.5 SEC (12.0-15.0) H 04/29/17 06:00 INR 1.44 (0.83-1.16) H 04/29/17 06:00 - Physical Exam Constitutional: no apparent distress Eyes: PERRL Ears, Nose, Mouth, Throat: moist mucous membranes Cardiovascular: regular rate and rhythym Respiratory: no respiratory distress, clear to auscultation Gastrointestinal: normoactive bowel sounds, distension, other (minimal TTP, no r /r/g) Skin: warm Musculoskeletal: full muscle strength Neurologic: AAOx3 Psychiatric: interacting appropriately ICD10 Worksheet Patient Problems: Problems Problem Status Onset Acute exacerbation of congestive heart failure Acute Atrial fibrillation with rapid ventricular response Acute DM type 1 (diabetes mellitus, type 1) Acute Perforated bowel Acute Renal failure Acute Altered mental status Acute Aspiration pneumonia Acute COPD (chronic obstructive pulmonary disease) Acute Lumbosacral radiculopathy at L5 Acute Narcotic dependency, continuous Acute Severe sepsis with septic shock Acute Spinal stenosis, lumbar Acute Tobacco dependence Acute
[2017-05-03] MEDS: TPN W/ FAMOTIDINE 1 EA BAG IV SCH (20:14)
[2017-05-04] MEDS ORDERED: POTASSIUM Cl (KCl) 100 ML IV ONE (02:30)
[2017-05-04] MEDS: fentaNYL/NACL 100 ML IV SCH (04:22)
[2017-05-04 05:41] LABS: PLATELET COUNT 205 10^3/uL (150-400)
[2017-05-04] MEDS: CHLORHEXIDINE GLUCONATE 15 ML UDL PO SCH ×2 (08:41→20:09)
[2017-05-04] MEDS: NICOTINE 21 MG/24 HR PATCH TD SCH (08:42)
[2017-05-04] MEDS: PREGABALIN 75 MG CAP PO SCH ×3 (08:42→21:07)
[2017-05-04] MEDS ORDERED: FUROSEMIDE 40 MG/4 ML VIAL IVP ONE (09:46)
[2017-05-04] MEDS ORDERED: ALBUMIN 25% 100 ML IV ONE (09:47)
--- NOTE | 2017-05-04 09:50 | PDINTPN ---
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 * Atelectasis-s/p bronchs, secretions reduced on last bronch 05/01 * Large right pleural effusion-chest tube placed. Draining serosanguinous fluid. Output back up yesterday. * Severe anemia-hemoglobin & hematocrit up after transfusion, diuresis. * YOLANDA: Improved, good urine output. * Shock-resolved, off pressors * Status post exploratory laparotomy * Hypokalemia-resolved * COPD * Prostate cancer * Chronic back pain. On Fentanyl gtt. Not yet ready to swallow MS Contin. * With stress ulcer prophylaxis * VTE prophylaxis * Nutrition: On TPN. Was getting some TF, but now off since extubated, and has not passed swallow eval. Plan:Continue fentanyl gtt for now. Hopefully can start MS Contin today. Increase activity. Lasix dose this morning, ? repeat this afternoon. tomorrow 05/04/17 09:50 Subjective: Thirsty. Pain controlled. Feels weak. Objective: Vital Signs Temp Pulse Resp BP Pulse Ox 36.9 C 94 24 H 143/54 H 100 05/04/17 08:00 05/04/17 08:00 05/04/17 08:00 05/04/17 08:00 05/04/17 08:00 Microbiology 04/30/17 14:55 Gram Stain - Final Lung - Bronchial Washings Laboratory Results 05/04/17 05:30 05/04/17 05:30 05/03/17 05/04/17 05/05/17 05:59 05:59 05:59 Intake Total 2655.7 2734 Output Total 7490 3650 Balance -4834.3 -916 PT 17.5 SEC (12.0-15.0) H 04/29/17 06:00 INR 1.44 (0.83-1.16) H 04/29/17 06:00 CXR: Improved CHF. Images reviewed. Physical Exam - Physical Exam General Appearance: alert, no apparent distress EENT: normal ENT inspection (dry oropharynx) Neck: normal inspection Respiratory: lungs clear Cardiac/Chest: regular rate, rhythm, edema (1+) Abdomen: non-tender, No normal bowel sounds (diminished) Skin: normal color, warm/dry Extremities: normal inspection Neuro/Psych: alert, normal mood/affect, motor weakness (difuse mild) ICD10 Worksheet Patient Problems: Problems Problem Status Onset Acute exacerbation of congestive heart failure Acute Atrial fibrillation with rapid ventricular response Acute DM type 1 (diabetes mellitus, type 1) Acute Perforated bowel Acute Renal failure Acute Altered mental status Acute Aspiration pneumonia Acute COPD (chronic obstructive pulmonary disease) Acute Lumbosacral radiculopathy at L5 Acute Narcotic dependency, continuous Acute Severe sepsis with septic shock Acute Spinal stenosis, lumbar Acute Tobacco dependence Acute
--- NOTE | 2017-05-04 09:58 | HOSPPROG ---
Hospitalist Progress Note Assessment/Plan: 72 yo M with PMH of copd, chronic resp failure presenting with septic shock/ polymicrobial bacteremia in setting of bowel perforation septic shock: off pressors, CVP stable acute respiratory failure with pulm edema and volume overload: extubated 05/02, now 100% on 2 LPM, CXR shows improvement of pulmonary edema, no lasix yesterday , but aggressively diuresed prior to that. Wt up again. - repeat lasix today - follow Cr, lytes polymicrobial bacteremia d/t staph epi and bacteroides, abdominal source - repeat BCx from 04/20 with ngtd; ID following, on levo plus flagyl from zosyn small bowel perforation with gross peritonitis 08/24 incarcerated/strangulated necrotic cecum - s/p re-anastamosis/fascial closure and wound vac placement - repeat ex lap on 04/26 due to RP hemorrhage / hematoma, abdomen now closed after return to OR for packing removal - awaiting return of bowel function acute blood loss anemia: source is RP bleed and R pleural effusion, hgb stable this am has received 15 units total packed red cells this week L pleural effusion: was actually LLL collapse that improved after bronch 04/30 fabricio: was likely hemodynamically mediated, Cr now normalized after diuresis, though persistent azotemia noted -repeat BMP in am as resuming diuresis today superficial thrombus LUE: without dvt. Warm compresses. penile edema - elevate, follow acute on chronic pain on continuous narcotics on fentanyl, resume oral MS Contin when he has return of bowel function and cleared by speech therapy for pills a-fib s/p failed cardioversion, attempted x4 on arrival, most recent ECG with sinus rhythm amiodarone dc'd 04/29 h/o MAZE procedure anticoagulated deferred due to bleeding as above QT: follow daily w levoflox and amiodarone OK Qt 05/02 code: dnr as of 04/28 acute on chronic resp failure/COPD - on baseline O2 of 2 LPM now TPN--trickle feeds, TPN, resume oral when bowel function improved, awaiting speech eval today ppx: cont to defer pharmacologic pplx given massive bleeding, cont SCD's, aim to get OOB, ambulate, consider BRITTANY in 1-2 days high risk, multiple active medical problems and tenuous status, cont ICU, may be able to transfer to floor today or tomorrow Subjective: Pt doing ok. Denies CP or SOB. No abdominal pain. No BM. Quite weak. No fevers. Objective: Vital Signs Temp Pulse Resp BP Pulse Ox 36.9 C 94 24 H 143/54 H 100 05/04/17 08:00 05/04/17 08:00 05/04/17 08:00 05/04/17 08:00 05/04/17 08:00 Microbiology 04/30/17 14:55 Gram Stain - Final Lung - Bronchial Washings Laboratory Results 05/04/17 05:30 05/04/17 05:30 05/03/17 05/04/17 05/05/17 05:59 05:59 05:59 Intake Total 2655.7 2734 Output Total 7490 3650 Balance -4834.3 -916 PT 17.5 SEC (12.0-15.0) H 04/29/17 06:00 INR 1.44 (0.83-1.16) H 04/29/17 06:00 - Physical Exam Constitutional: chronically ill appearing Eyes: PERRL Ears, Nose, Mouth, Throat: moist mucous membranes Cardiovascular: regular rate and rhythym Respiratory: no respiratory distress, inspiratory crackles Gastrointestinal: normoactive bowel sounds, soft, non-tender abdomen Skin: warm Musculoskeletal: generalized weakness, other (tr-1+ LE edema, scrotal edema improved) Neurologic: AAOx3 Psychiatric: interacting appropriately ICD10 Worksheet Patient Problems: Problems Problem Status Onset Acute exacerbation of congestive heart failure Acute Atrial fibrillation with rapid ventricular response Acute DM type 1 (diabetes mellitus, type 1) Acute Perforated bowel Acute Renal failure Acute Altered mental status Acute Aspiration pneumonia Acute COPD (chronic obstructive pulmonary disease) Acute Lumbosacral radiculopathy at L5 Acute Narcotic dependency, continuous Acute Severe sepsis with septic shock Acute Spinal stenosis, lumbar Acute Tobacco dependence Acute
[2017-05-04] MEDS: morphINE SR 100 MG TAB PO SCH ×3 (11:48→21:07)
[2017-05-04] MEDS: COLLAGENASE 30 GM OINTMENT TP SCH (12:09)
[2017-05-04] MEDS: FUROSEMIDE 20 MG/2 ML VIAL IVP SCH ×2 (12:36→20:12)
[2017-05-04] MEDS: ALBUMIN 25% 100 ML IV SCH ×2 (12:36→17:50)
--- NOTE | 2017-05-04 12:55 | WOCRNPDOC ---
[facility] Advanced Assessment Note - Skin Integrity Problem, Advanced Assess Medial Back Pressure Injury Dressing Type: Allevyn Life, Telfa Dressing Description: Clean/Dry, Intact Exudate Amount: None Exudate Characteristic(s): None Integumentary Issue Intervention: Dressing Changed Nataly Wound Tissue: Blanching, Ecchymotic, Scarred Nataly Wound Swelling: Mild Wound Bed Color: Red, Yellow Wound Bed Constitution: Smooth Tissue (non-granulating, 70%), Adhered Slough (30 %) Site Odor: None Site Measurement - Head-to-Toe Length X Width X Depth (cm): 4.5cmx1.5cmx0.2cm Pressure Injury Stage: Stage 3 Pressure Injury Present on Admit: Yes Skin Integrity Problem Comment: Adhered slough remains tenacious in distal aspect of wound. Suspect wound too dry; no exudate noted on the dressing. Periwound tissue blanching and scarred throughout. Mechanically debrided sloughy tissue w/ Debrisoft mitt, reapplied Santyl, then covered w/ NS- moistened gauze to add moisture to the wound bed, followed by Tegaderm. Patient is medically complex, and this is a chronic, non-healing wound he has had for some time. Will consider sharp debridement when more acute medical issues improve. foundry worker apprentice Odalys present and assisting. Medial Abdomen Surgical Wound/Incision Dressing Type: Black Vac Foam, Wound Vac Dressing Description: Intact Exudate Amount: Minimal Exudate Color: Reddish/Yellow Exudate Characteristic(s): Serosanguinous Integumentary Issue Intervention: Dressing Changed Nataly Wound Tissue: Intact Nataly Wound Swelling: Mild Wound Bed Color: Red Wound Bed Constitution: Granulation Tissue, Smooth Tissue Site Odor: None Site Measurement - Head-to-Toe Length X Width X Depth (cm): 23cmx3.4cmx3.4cm Skin Integrity Problem Comment: Wound vac dressing removed and site assessed by Dr.s Avendaño and Dolores. Fascia remains closed, and granulation tissue noted along medial aspect of wound. No necrosis and minimal periwound swelling. Dr. Avendaño said he will consider a partial closure depending on how this wound looks next week. Periwound skin prepped and draped, wound flushed w/ NS and gauze, and one large piece of black granulofoam placed into wound bed. Vac setting resume at -125mmHg, low, continuous suction. Wound RN will reassess and change this dressing on Monday 05/07. Left Lower Abdomen Pressure Injury Dressing Type: Open to Air Exudate Amount: None Exudate Characteristic(s): None Pressure Injury Stage: Stage 1 Skin Integrity Problem Comment: No non-blanching erythema evident on L lower abdomen. There was a stage 1 pressure injury previously documented by Wound RN on 05/02, r/t drain tubing which had been taped down to patient's skin under vac drape. Site appears to have resolved.
--- NOTE | 2017-05-04 15:36 | PCMIDPN ---
Assessment/Plan: # Septic shock due to peritonitis associated with necrotic cecum: OR cultures with Klebsiella, Bacteroides. Fascia is now close after multiple washouts. Hemodynamics improved but slight elevation of WBC. Course also complicated by severe coagulopathy potential exacerbated by B lactam mediated thrombocytopenia. L subphrenic fluid collection 04/24 culture was negative. Hold antifungal coverage with negative peritoneal cx. # Bacteroides bacteremia, blood cx 04/26 negative # Coagulase negative Staph in 1 set consistent with contamination # Resp colonization with Berkley # Slight worsening leukocytosis Recommendations: --continue daily monitoring of QTi --continue levo/flagyl for now for intra-abdominal process, unclear duration; currently on #22 of broad spec abx --if continued elevation of wbc, may consider blood cultures, at risk of line infection in light of TPN, multiple lines --DC TLC, discussed with surgery Medications, Levofloxacin 750mg IV daily #8 flagyl 50mg IV q8 , #[address] Ziegler, DR Avendaño and Dr Garcia Subjective: patient feeling better denies diarrhea Objective: Vital Signs Temp Pulse Resp BP Pulse Ox 37.1 C 93 22 H 135/54 H 100 05/04/17 13:29 05/04/17 14:00 05/04/17 14:00 05/04/17 14:00 05/04/17 14:00 Microbiology 04/30/17 14:55 Gram Stain - Final Lung - Bronchial Washings Bronchial Washings Culture - Final Berkley [place] Laboratory Results 05/04/17 05:30 05/04/17 12:00 05/03/17 05/04/17 05/05/17 05:59 05:59 05:59 Intake Total 2655.7 2734 Output Total 7490 3650 1400 Balance -4834.3 -916 -1400 - Physical Exam General Appearance: alert, no apparent distress EENT: other (MMM) Respiratory: other (decreased BS bases), No accessory muscle use Neck: supple Cardiac/Chest: regular rate, rhythm Extremities: pedal edema, other (hyperpig LE c/w chr venous insuffiency) Abdomen: normal bowel sounds, soft, other (mildline incision open to fascia, tissue healthy appearing without surrounding erythema, purulence) Male Genitalia: ferguson Skin: pallor, No rash - Line/s other Lines: other (L IJ), No drainage, No erythema RUE PICC Lines: other (mild associated arm swelling but diameter getting smaller), No drainage, No erythema - Time Spent With Patient Time Spent with Patient: greater than 35 minutes Time Spent with Patient: Greater than 35 minutes spent on this patients care, greater than 50% of time spent counseling, educating, and coordinating care regarding the above mentioned plan. ICD10 Worksheet Patient Problems: Problems Problem Status Onset Acute exacerbation of congestive heart failure Acute Atrial fibrillation with rapid ventricular response Acute DM type 1 (diabetes mellitus, type 1) Acute Perforated bowel Acute Renal failure Acute Altered mental status Acute Aspiration pneumonia Acute COPD (chronic obstructive pulmonary disease) Acute Lumbosacral radiculopathy at L5 Acute Narcotic dependency, continuous Acute Severe sepsis with septic shock Acute Spinal stenosis, lumbar Acute Tobacco dependence Acute
[2017-05-04] MEDS ORDERED: morphINE SR 100 MG TAB PO SCH (16:00)
--- NOTE | 2017-05-04 16:07 | ASMTCMCOM ---
CM Note CM Note Notes: Pt improving and transferring to floor today. D/c plan is still to [facility] when medically ready. Date Signed: 05/04/2017 04:06 PM Electronically Signed By:MIGUE Johnson
[2017-05-04] MEDS: ACETAMINOPHEN 325 MG TAB PO PRN ×2 (17:49→21:53)
[2017-05-04] MEDS: TPN W/ FAMOTIDINE 1 EA BAG IV SCH (20:58)
[2017-05-04] MEDS: HYDROmorphONE/DILAUDID 1 MG/ML INJ IVP PRN (22:51)
[2017-05-05] MEDS: ALBUMIN 25% 100 ML IV SCH ×2 (00:33→05:25)
[2017-05-05] MEDS: FUROSEMIDE 20 MG/2 ML VIAL IVP SCH ×2 (00:34→05:25)
[2017-05-05] MEDS: HYDROmorphONE/DILAUDID 1 MG/ML INJ IVP PRN ×3 (01:05→10:35)
[2017-05-05] MEDS ORDERED: POTASSIUM Cl (KCl) 100 ML IV ONE (01:49)
[2017-05-05 05:01] LABS: PLATELET COUNT 212 10^3/uL (150-400)
--- NOTE | 2017-05-05 07:56 | SOAPPROG ---
SOAP Progress Note Assessment/Plan: Assessment: 72 year old with multiple co-morbidities s/p colonic resection with anastomosis and wash out. s/p drainage of subphrenic abscess s/p ex lap for retroperitoneal bleed Pleural effusion - keep chest tube, still too high to remove Advance diet WV to suction S: Sitting up in chair. Just had BM O: Abdomen soft. Wound vac to suction. KAREN to suction Lungs decreased at bases CT with 100 cc since last evening. Plan: 04/25/17 18:33 05/05/17 07:55 Objective: Vital Signs Temp Pulse Resp BP Pulse Ox 36.8 C 110 H 22 H 122/67 H 98 05/05/17 07:43 05/05/17 07:43 05/05/17 07:43 05/05/17 07:43 05/05/17 07:43 Microbiology 04/30/17 14:55 Gram Stain - Final Lung - Bronchial Washings Bronchial Washings Culture - Final Berkley [place] Laboratory Results 05/05/17 04:45 05/05/17 04:45 05/04/17 05/05/17 05/06/17 05:59 05:59 05:59 Intake Total 2734 2699 Output Total 3650 1535 Balance -916 -1686 PT 17.5 SEC (12.0-15.0) H 04/29/17 06:00 INR 1.44 (0.83-1.16) H 04/29/17 06:00 ICD10 Worksheet Patient Problems: Problems Problem Status Onset Acute exacerbation of congestive heart failure Acute Atrial fibrillation with rapid ventricular response Acute DM type 1 (diabetes mellitus, type 1) Acute Perforated bowel Acute Renal failure Acute Altered mental status Acute Aspiration pneumonia Acute COPD (chronic obstructive pulmonary disease) Acute Lumbosacral radiculopathy at L5 Acute Narcotic dependency, continuous Acute Severe sepsis with septic shock Acute Spinal stenosis, lumbar Acute Tobacco dependence Acute
[2017-05-05] MEDS: PREGABALIN 75 MG CAP PO SCH ×3 (08:42→22:40)
[2017-05-05] MEDS: morphINE SR 100 MG TAB PO SCH ×3 (08:42→22:40)
[2017-05-05] MEDS: CHLORHEXIDINE GLUCONATE 15 ML UDL PO SCH ×2 (08:42→22:39)
[2017-05-05] MEDS: NICOTINE 21 MG/24 HR PATCH TD SCH (08:43)
--- NOTE | 2017-05-05 10:37 | HOSPPROG ---
Hospitalist Progress Note Assessment/Plan: 72 yo M with PMH of copd, chronic resp failure presenting with septic shock/ polymicrobial bacteremia in setting of bowel perforation septic shock: off pressors, CVP stable acute respiratory failure with pulm edema and volume overload: extubated 05/02, now 100% on 2 LPM, CXR shows improvement of pulmonary edema, no lasix yesterday , but aggressively diuresed prior to that. Wt up again. - cont IV lasix diuresis, change to BID - follow daily wts, I&O's - follow Cr, lytes polymicrobial bacteremia d/t staph epi and bacteroides, abdominal source - repeat BCx from 04/20 with ngtd; ID following, on levo plus flagyl from zosyn small bowel perforation with gross peritonitis 2/ incarcerated/strangulated necrotic cecum - s/p re-anastamosis/fascial closure and wound vac placement - repeat ex lap emergently on 04/27 due to hypotension and RP hemorrhage, abdomen now closed after return to OR for packing removal - awaiting return of bowel function acute blood loss anemia: source is RP bleed and R pleural effusion, hgb remains stable has received 15 units total packed red cells L pleural effusion: was actually LLL collapse that improved after bronch 04/30, chest tube still with significant output CT management per surgery repeat CXR in am fabricio: was likely hemodynamically mediated, Cr now normalized after diuresis, though persistent azotemia noted -repeat BMP in am as resuming diuresis today superficial thrombus LUE: without dvt. Warm compresses. penile edema - elevate, follow acute on chronic pain on continuous narcotics resumed home MS contin and oxycodone doses yesterday a-fib s/p failed cardioversion, attempted x4 on arrival, most recent ECG with sinus rhythm amiodarone dc'd 04/29 h/o MAZE procedure anticoagulation deferred due to bleeding as above, need to discuss with cards if/when safe to resume full AC code: dnr as of 04/28 diet: cont TPN, safe to swallow pills per speech, but still recommending non- oral nutrition, VFSS planned ppx: pharmacologic pplx deferred for >7 days after retroperitoneal hemorrhage. Hgb remains stable and pt high risk post-op. Will resume BRITTANY today. high risk dispo - transfer to PCU today Subjective: Pt doing ok. Denies CP, SOB. Still feels some swelling. Pain controlled. No BM's. Able to swallow meds now, but still on TPN for nutrition. Objective: Vital Signs Temp Pulse Resp BP Pulse Ox 36.8 C 110 H 22 H 122/67 H 98 05/05/17 07:43 05/05/17 07:43 05/05/17 07:43 05/05/17 07:43 05/05/17 07:43 Microbiology 04/30/17 14:55 Gram Stain - Final Lung - Bronchial Washings Bronchial Washings Culture - Final Berkley [place] Laboratory Results 05/05/17 04:45 05/05/17 04:45 05/04/17 05/05/17 05/06/17 05:59 05:59 05:59 Intake Total 2734 2699 Output Total 3650 4385 Balance -916 -4916 PT 17.5 SEC (12.0-15.0) H 04/29/17 06:00 INR 1.44 (0.83-1.16) H 04/29/17 06:00 - Physical Exam Constitutional: chronically ill appearing Eyes: PERRL Ears, Nose, Mouth, Throat: moist mucous membranes Cardiovascular: regular rate and rhythym Respiratory: no respiratory distress, reduced air movement, inspiratory crackles Gastrointestinal: normoactive bowel sounds, soft, non-tender abdomen Skin: warm Musculoskeletal: other (still with generalized anasarcs) Neurologic: AAOx3 Psychiatric: interacting appropriately ICD10 Worksheet Patient Problems: Problems Problem Status Onset Acute exacerbation of congestive heart failure Acute Atrial fibrillation with rapid ventricular response Acute DM type 1 (diabetes mellitus, type 1) Acute Perforated bowel Acute Renal failure Acute Altered mental status Acute Aspiration pneumonia Acute COPD (chronic obstructive pulmonary disease) Acute Lumbosacral radiculopathy at L5 Acute Narcotic dependency, continuous Acute Severe sepsis with septic shock Acute Spinal stenosis, lumbar Acute Tobacco dependence Acute
--- NOTE | 2017-05-05 12:40 | PCMIDPN ---
Assessment/Plan: Assessment/Plan: 1. Sepsis secondary to necrotic cecum/peritonitis/abscess: - s/p colon resection with anastomosis. -Polymicrobial bacteremia with staph epi, bacteroides noted -Abd cx with Klebsiella. no new growth from IR drainage of perisplenic collection () -Currently on levaquin + flagyl -s/p washout out on 04/16/17. - Large retroperitoneal bleed, s/p surgery on 04/27/17. -Continue with current antibiotics for now. -Wbc elevated but fluctuating. IF continues to rise, then will consider working up further with blood cx, re-imaging etc. -Will need f/u imaging at some point to help define length of therapy with antibiotics. Meds levaquin 750mg daily- 04/27/17 flagyl 500mg q8- 04/27/17 TPN s/p zosyn 4.5gm q6- micafungin 100mg daily Subjective: Afebrile. Not intubated. sitting in chair. Feeling better. Denies abd pain. Denies sob. Mild cough. had bm. Chest tube present. Ferguson. Objective: Vital Signs Temp Pulse Resp BP Pulse Ox 36.8 C 110 H 22 H 122/67 H 98 05/05/17 07:43 05/05/17 07:43 05/05/17 07:43 05/05/17 07:43 05/05/17 07:43 Microbiology 04/30/17 14:55 Gram Stain - Final Lung - Bronchial Washings Bronchial Washings Culture - Final Berkley [place] Laboratory Results 05/05/17 04:45 05/04/17 05/05/17 05/06/17 05:59 05:59 05:59 Intake Total 6081 7458 Output Total 5517 2741 Balance -505 -5044 - Physical Exam General Appearance: alert, no apparent distress Respiratory: coarse breath sounds (mild) Cardiac/Chest: other (chest tube) Extremities: other (no edema. ) Abdomen: normal bowel sounds, non-tender, other (wound vac noted. drain present. ) Male Genitalia: ferguson Skin: other (no rash) ICD10 Worksheet Patient Problems: Problems Problem Status Onset Acute exacerbation of congestive heart failure Acute Atrial fibrillation with rapid ventricular response Acute DM type 1 (diabetes mellitus, type 1) Acute Perforated bowel Acute Renal failure Acute Altered mental status Acute Aspiration pneumonia Acute COPD (chronic obstructive pulmonary disease) Acute Lumbosacral radiculopathy at L5 Acute Narcotic dependency, continuous Acute Severe sepsis with septic shock Acute Spinal stenosis, lumbar Acute Tobacco dependence Acute
--- NOTE | 2017-05-05 12:40 | PCMIDPN ---
Assessment/Plan: Assessment/Plan: 1. Sepsis secondary to necrotic cecum/peritonitis/abscess: - s/p colon resection with anastomosis. -Polymicrobial bacteremia with staph epi, bacteroides noted -Abd cx with Klebsiella. no new growth from IR drainage of perisplenic collection () -Currently on levaquin + flagyl -s/p washout out on 04/16/17. - Large retroperitoneal bleed, s/p surgery on 04/27/17. -Continue with current antibiotics for now. -Wbc elevated but fluctuating. IF continues to rise, then will consider working up further with blood cx, re-imaging etc. -Will need f/u imaging at some point to help define length of therapy with antibiotics. Meds levaquin 750mg daily- 04/27/17 flagyl 500mg q8- 04/27/17 TPN s/p zosyn 4.5gm q6- micafungin 100mg daily Subjective: Afebrile. Not intubated. sitting in chair. Feeling better. Denies abd pain. Denies sob. Mild cough. had bm. Chest tube present. Ferguson. Objective: Vital Signs Temp Pulse Resp BP Pulse Ox 36.8 C 110 H 22 H 122/67 H 98 05/05/17 07:43 05/05/17 07:43 05/05/17 07:43 05/05/17 07:43 05/05/17 07:43 Microbiology 04/30/17 14:55 Gram Stain - Final Lung - Bronchial Washings Bronchial Washings Culture - Final Berkley [place] Laboratory Results 05/05/17 04:45 05/04/17 05/05/17 05/06/17 05:59 05:59 05:59 Intake Total 1952 6418 Output Total 0084 4813 Balance -411 -8035 - Physical Exam General Appearance: alert, no apparent distress Respiratory: coarse breath sounds (mild) Cardiac/Chest: other (chest tube) Extremities: other (no edema. ) Abdomen: normal bowel sounds, non-tender, other (wound vac noted. drain present. ) Male Genitalia: ferguson Skin: other (no rash) ICD10 Worksheet Patient Problems: Problems Problem Status Onset Acute exacerbation of congestive heart failure Acute Atrial fibrillation with rapid ventricular response Acute DM type 1 (diabetes mellitus, type 1) Acute Perforated bowel Acute Renal failure Acute Altered mental status Acute Aspiration pneumonia Acute COPD (chronic obstructive pulmonary disease) Acute Lumbosacral radiculopathy at L5 Acute Narcotic dependency, continuous Acute Severe sepsis with septic shock Acute Spinal stenosis, lumbar Acute Tobacco dependence Acute
--- NOTE | 2017-05-05 12:40 | PCMIDPN ---
Assessment/Plan: Assessment/Plan: 1. Sepsis secondary to necrotic cecum/peritonitis/abscess: - s/p colon resection with anastomosis. -Polymicrobial bacteremia with staph epi, bacteroides noted -Abd cx with Klebsiella. no new growth from IR drainage of perisplenic collection () -Currently on levaquin + flagyl -s/p washout out on 04/16/17. - Large retroperitoneal bleed, s/p surgery on 04/27/17. -Continue with current antibiotics for now. -Wbc elevated but fluctuating. IF continues to rise, then will consider working up further with blood cx, re-imaging etc. -Will need f/u imaging at some point to help define length of therapy with antibiotics. Meds levaquin 750mg daily- 04/27/17 flagyl 500mg q8- 04/27/17 TPN s/p zosyn 4.5gm q6- micafungin 100mg daily Subjective: Afebrile. Not intubated. sitting in chair. Feeling better. Denies abd pain. Denies sob. Mild cough. had bm. Chest tube present. Ferguson. Objective: Vital Signs Temp Pulse Resp BP Pulse Ox 36.8 C 110 H 22 H 122/67 H 98 05/05/17 07:43 05/05/17 07:43 05/05/17 07:43 05/05/17 07:43 05/05/17 07:43 Microbiology 04/30/17 14:55 Gram Stain - Final Lung - Bronchial Washings Bronchial Washings Culture - Final Ber[facility] [place] Laboratory Results 05/05/17 04:45 05/04/17 05/05/17 05/06/17 05:59 05:59 05:59 Intake Total 6087 8082 Output Total 4449 3566 Balance -530 -8465 - Physical Exam General Appearance: alert, no apparent distress Respiratory: coarse breath sounds (mild) Cardiac/Chest: other (chest tube) Extremities: other (no edema. ) Abdomen: normal bowel sounds, non-tender, other (wound vac noted. drain present. ) Male Genitalia: ferguson Skin: other (no rash) ICD10 Worksheet Patient Problems: Problems Problem Status Onset Acute exacerbation of congestive heart failure Acute Atrial fibrillation with rapid ventricular response Acute DM type 1 (diabetes mellitus, type 1) Acute Perforated bowel Acute Renal failure Acute Altered mental status Acute Aspiration pneumonia Acute COPD (chronic obstructive pulmonary disease) Acute Lumbosacral radiculopathy at L5 Acute Narcotic dependency, continuous Acute Severe sepsis with septic shock Acute Spinal stenosis, lumbar Acute Tobacco dependence Acute
[2017-05-05] MEDS: COLLAGENASE 30 GM OINTMENT TP SCH (12:57)
[2017-05-05] MEDS: FUROSEMIDE 40 MG/4 ML VIAL IVP SCH (15:57)
[2017-05-05] MEDS: HEPARIN 5,000 UNIT/0.5 ML SYR SC SCH ×2 (17:09→22:40)
[2017-05-05] MEDS: TPN W/ FAMOTIDINE 1 EA BAG IV SCH (21:19)
[2017-05-06] MEDS: HEPARIN 5,000 UNIT/0.5 ML SYR SC SCH ×3 (05:42→21:18)
[2017-05-06 06:06] LABS: PLATELET COUNT 222 10^3/uL (150-400)
--- NOTE | 2017-05-06 09:13 | SOAPPROG ---
SOAP Progress Note Assessment/Plan: Assessment: 72 year old with multiple co-morbidities s/p colonic resection with anastomosis and wash out. s/p drainage of subphrenic abscess s/p ex lap for retroperitoneal bleed Pleural effusion - chest tube with less than 100 out for 2 days in a row Remove chest tube - repeat cxr at 1 Advance diet W[place] to suction S: Lying in bed, feels well O: Abdomen soft. Wound vac to suction. KAREN to suction Chest tube removed without difficulty Plan: 04/25/17 18:33 05/05/17 07:55 05/06/17 09:12 Objective: Vital Signs Temp Pulse Resp BP Pulse Ox 36.7 C 86 20 118/60 91 L 05/06/17 08:00 05/06/17 08:00 05/06/17 08:00 05/06/17 08:00 05/06/17 08:00 Laboratory Results 05/06/17 05:50 05/06/17 05:50 05/05/17 05/06/17 05/07/17 05:59 05:59 05:59 Intake Total 2699 871 956 Output Total 4385 4525 285 Balance -1246 -8544 671 PT 17.5 SEC (12.0-15.0) H 04/29/17 06:00 INR 1.44 (0.83-1.16) H 04/29/17 06:00 ICD10 Worksheet Patient Problems: Problems Problem Status Onset Acute exacerbation of congestive heart failure Acute Atrial fibrillation with rapid ventricular response Acute DM type 1 (diabetes mellitus, type 1) Acute Perforated bowel Acute Renal failure Acute Altered mental status Acute Aspiration pneumonia Acute COPD (chronic obstructive pulmonary disease) Acute Lumbosacral radiculopathy at L5 Acute Narcotic dependency, continuous Acute Severe sepsis with septic shock Acute Spinal stenosis, lumbar Acute Tobacco dependence Acute
[2017-05-06] MEDS: CHLORHEXIDINE GLUCONATE 15 ML UDL PO SCH ×2 (09:48→21:18)
[2017-05-06] MEDS: NICOTINE 21 MG/24 HR PATCH TD SCH (09:49)
[2017-05-06] MEDS: morphINE SR 100 MG TAB PO SCH ×3 (09:50→21:19)
[2017-05-06] MEDS: PREGABALIN 75 MG CAP PO SCH ×3 (09:50→21:19)
[2017-05-06] MEDS: FUROSEMIDE 40 MG/4 ML VIAL IVP SCH ×2 (09:50→16:17)
--- NOTE | 2017-05-06 10:05 | PCMIDPN ---
Assessment/Plan: Assessment/Plan: 1. Sepsis secondary to necrotic cecum/peritonitis/abscess: - s/p colon resection with anastomosis. -Polymicrobial bacteremia with staph epi, bacteroides noted -Abd cx with Klebsiella. no new growth from IR drainage of perisplenic collection (04/24/17) -Currently on levaquin + flagyl -s/p washout out on 04/16/17. - Large retroperitoneal bleed, s/p surgery on 04/27/17. -Continue with current antibiotics for now. -Wbc elevated but fluctuating. If continues to rise, then will consider working up further with blood cx, re-imaging etc. -Will need f/u imaging at some point to help define length of therapy with antibiotics. Meds levaquin 750mg daily- 04/27/17 flagyl 500mg q8- 04/27/17 TPN s/p zosyn 4.5gm q6- micafungin 100mg daily Subjective: afebrile. feeling better. mild abd pain. nara drains noted. denies sob, abd pain. on TPN. Objective: Vital Signs Temp Pulse Resp BP Pulse Ox 36.7 C 86 20 118/60 91 L 05/06/17 08:00 05/06/17 08:00 05/06/17 08:00 05/06/17 08:00 05/06/17 08:00 Laboratory Results 05/06/17 05:50 05/06/17 05:50 05/05/17 05/06/17 05/07/17 05:59 05:59 05:59 Intake Total 2163 876 956 Output Total 3458 7393 994 [facility] -[phone] - Physical Exam General Appearance: alert, no apparent distress Respiratory: coarse breath sounds Cardiac/Chest: regular rate, rhythm Extremities: other (chronic venous stasis dermatitis b/l LE) Abdomen: normal bowel sounds, non-tender, soft, other (wound vac. nara drains noted.), No distended Skin: No erythema ICD10 Worksheet Patient Problems: Problems Problem Status Onset Acute exacerbation of congestive heart failure Acute Atrial fibrillation with rapid ventricular response Acute DM type 1 (diabetes mellitus, type 1) Acute Perforated bowel Acute Renal failure Acute Altered mental status Acute Aspiration pneumonia Acute COPD (chronic obstructive pulmonary disease) Acute Lumbosacral radiculopathy at L5 Acute Narcotic dependency, continuous Acute Severe sepsis with septic shock Acute Spinal stenosis, lumbar Acute Tobacco dependence Acute
--- NOTE | 2017-05-06 10:05 | PCMIDPN ---
Assessment/Plan: Assessment/Plan: 1. Sepsis secondary to necrotic cecum/peritonitis/abscess: - s/p colon resection with anastomosis. -Polymicrobial bacteremia with staph epi, bacteroides noted -Abd cx with Klebsiella. no new growth from IR drainage of perisplenic collection (04/24/17) -Currently on levaquin + flagyl -s/p washout out on 04/16/17. - Large retroperitoneal bleed, s/p surgery on 04/27/17. -Continue with current antibiotics for now. -Wbc elevated but fluctuating. If continues to rise, then will consider working up further with blood cx, re-imaging etc. -Will need f/u imaging at some point to help define length of therapy with antibiotics. Meds levaquin 750mg daily- 04/27/17 flagyl 500mg q8- 04/27/17 TPN s/p zosyn 4.5gm q6- micafungin 100mg daily Subjective: afebrile. feeling better. mild abd pain. nara drains noted. denies sob, abd pain. on TPN. Objective: Vital Signs Temp Pulse Resp BP Pulse Ox 36.7 C 86 20 118/60 91 L 05/06/17 08:00 05/06/17 08:00 05/06/17 08:00 05/06/17 08:00 05/06/17 08:00 Laboratory Results 05/06/17 05:50 05/06/17 05:50 05/05/17 05/06/17 05/07/17 05:59 05:59 05:59 Intake Total 7134 879 956 Output Total 6433 3137 473 [facility] -[phone] 7 - Physical Exam General Appearance: alert, no apparent distress Respiratory: coarse breath sounds Cardiac/Chest: regular rate, rhythm Extremities: other (chronic venous stasis dermatitis b/l LE) Abdomen: normal bowel sounds, non-tender, soft, other (wound vac. nara drains noted.), No distended Skin: No erythema ICD10 Worksheet Patient Problems: Problems Problem Status Onset Acute exacerbation of congestive heart failure Acute Atrial fibrillation with rapid ventricular response Acute DM type 1 (diabetes mellitus, type 1) Acute Perforated bowel Acute Renal failure Acute Altered mental status Acute Aspiration pneumonia Acute COPD (chronic obstructive pulmonary disease) Acute Lumbosacral radiculopathy at L5 Acute Narcotic dependency, continuous Acute Severe sepsis with septic shock Acute Spinal stenosis, lumbar Acute Tobacco dependence Acute
--- NOTE | 2017-05-06 10:05 | PCMIDPN ---
Assessment/Plan: Assessment/Plan: 1. Sepsis secondary to necrotic cecum/peritonitis/abscess: - s/p colon resection with anastomosis. -Polymicrobial bacteremia with staph epi, bacteroides noted -Abd cx with Klebsiella. no new growth from IR drainage of perisplenic collection (04/24/17) -Currently on levaquin + flagyl -s/p washout out on 04/16/17. - Large retroperitoneal bleed, s/p surgery on 04/27/17. -Continue with current antibiotics for now. -Wbc elevated but fluctuating. If continues to rise, then will consider working up further with blood cx, re-imaging etc. -Will need f/u imaging at some point to help define length of therapy with antibiotics. Meds levaquin 750mg daily- 04/27/17 flagyl 500mg q8- 04/27/17 TPN s/p zosyn 4.5gm q6- micafungin 100mg daily Subjective: afebrile. feeling better. mild abd pain. nara drains noted. denies sob, abd pain. on TPN. Objective: Vital Signs Temp Pulse Resp BP Pulse Ox 36.7 C 86 20 118/60 91 L 05/06/17 08:00 05/06/17 08:00 05/06/17 08:00 05/06/17 08:00 05/06/17 08:00 Laboratory Results 05/06/17 05:50 05/06/17 05:50 05/05/17 05/06/17 05/07/17 05:59 05:59 05:59 Intake Total 5139 876 956 Output Total 7256 7180 309 [facility] -[phone] - Physical Exam General Appearance: alert, no apparent distress Respiratory: coarse breath sounds Cardiac/Chest: regular rate, rhythm Extremities: other (chronic venous stasis dermatitis b/l LE) Abdomen: normal bowel sounds, non-tender, soft, other (wound vac. nara drains noted.), No distended Skin: No erythema ICD10 Worksheet Patient Problems: Problems Problem Status Onset Acute exacerbation of congestive heart failure Acute Atrial fibrillation with rapid ventricular response Acute DM type 1 (diabetes mellitus, type 1) Acute Perforated bowel Acute Renal failure Acute Altered mental status Acute Aspiration pneumonia Acute COPD (chronic obstructive pulmonary disease) Acute Lumbosacral radiculopathy at L5 Acute Narcotic dependency, continuous Acute Severe sepsis with septic shock Acute Spinal stenosis, lumbar Acute Tobacco dependence Acute
--- NOTE | 2017-05-06 10:55 | HOSPPROG ---
Hospitalist Progress Note Assessment/Plan: 72 yo M with PMH of copd, chronic resp failure presenting with septic shock/ polymicrobial bacteremia in setting of bowel perforation septic shock: off pressors, CVP stable acute respiratory failure with pulm edema and volume overload, now with sm-mod right PTX: extubated 05/02, was 100% on 2LPM yesterday, increased O2 requirement up to 5 LPM. CXR still with pulmonary edema. - stat CTPA to r/o PE - neg for PE, sm to mod PTX - cont IV lasix diuresis - follow daily wts, I&O's - follow Cr, lytes polymicrobial bacteremia d/t staph epi and bacteroides, abdominal source - repeat BCx from 04/20 with ngtd; ID following, on levo plus flagyl from zosyn small bowel perforation with gross peritonitis 2/2 incarcerated/strangulated necrotic cecum - s/p re-anastamosis/fascial closure and wound vac placement - repeat ex lap emergently on 04/27 due to hypotension and RP hemorrhage, abdomen now closed after return to OR for packing removal - awaiting return of bowel function acute blood loss anemia: source is RP bleed and R pleural effusion, hgb remains stable has received 15 units total packed red cells pneumothorax - sm to mod PTX on CT after removal of chest tube, which was no longer indicated due to improvement of effusion and decreased output -surgery placed new pleurx catheter chest tube for PTX -repeat CXR in am L pleural effusion: was actually LLL collapse that improved after bronch 04/30, chest tube still minimal outpt large CT removed today per surgery fabricio: was likely hemodynamically mediated, Cr now normalized after diuresis, though persistent azotemia noted -follow bmp with diuresis superficial thrombus LUE: without dvt. Warm compresses. penile edema - elevate, follow acute on chronic pain on continuous narcotics back on home MS contin and oxycodone doses a-fib s/p failed cardioversion, attempted x4 on arrival, most recent ECG with sinus rhythm amiodarone dc'd 04/29 h/o MAZE procedure anticoagulation deferred due to bleeding as above, need to discuss with cards if/when safe to resume full AC code: dnr as of 04/28 diet: cont TPN, safe to swallow pills per speech, but still recommending non- oral nutrition, VFSS planned ppx: pharmacologic pplx deferred for >7 days after retroperitoneal hemorrhage. Hgb remains stable and pt high risk post-op. Will resume BRITTANY today. high risk dispo - transfer to PCU today Subjective: Pt doing well. Denies CP or SOB. No orthopnea. Still some scrotal and LE swelling. Tolerating diet. Good uop. Objective: Vital Signs Temp Pulse Resp BP Pulse Ox 36.7 C 86 20 118/60 91 L 05/06/17 08:00 05/06/17 08:00 05/06/17 08:00 05/06/17 08:00 05/06/17 08:00 Laboratory Results 05/06/17 05:50 05/06/17 05:50 05/05/17 05/06/17 05/07/17 05:59 05:59 05:59 Intake Total 2699 871 956 Output Total 4385 4525 285 Balance -1686 -3654 671 PT 17.5 SEC (12.0-15.0) H 04/29/17 06:00 INR 1.44 (0.83-1.16) H 04/29/17 06:00 - Physical Exam Constitutional: no apparent distress Eyes: PERRL Ears, Nose, Mouth, Throat: moist mucous membranes Cardiovascular: regular rate and rhythym Respiratory: no respiratory distress, reduced air movement, inspiratory crackles Gastrointestinal: normoactive bowel sounds, soft, non-tender abdomen Skin: warm Musculoskeletal: generalized weakness, other (1+ b/l LE edema to thighs) Neurologic: AAOx3 Psychiatric: interacting appropriately ICD10 Worksheet Patient Problems: Problems Problem Status Onset Acute exacerbation of congestive heart failure Acute Atrial fibrillation with rapid ventricular response Acute DM type 1 (diabetes mellitus, type 1) Acute Perforated bowel Acute Renal failure Acute Altered mental status Acute Aspiration pneumonia Acute COPD (chronic obstructive pulmonary disease) Acute Lumbosacral radiculopathy at L5 Acute Narcotic dependency, continuous Acute Severe sepsis with septic shock Acute Spinal stenosis, lumbar Acute Tobacco dependence Acute
[2017-05-06] MEDS ORDERED: IOPAMIDOL (ISOVUE 370) 100 ML BTL IV ONE (11:06)
[2017-05-06] MEDS: ONDANSETRON 4 MG/2 ML VIAL IVP PRN (12:34)
[2017-05-06] MEDS: COLLAGENASE 30 GM OINTMENT TP SCH (13:20)
--- NOTE | 2017-05-06 13:59 | GPN ---
[f rep st] PROCEDURE NOTE DATE OF PROCEDURE: 05/06/2017 ANESTHESIA: None. PREOPERATIVE DIAGNOSIS: Right pneumothorax. POSTOPERATIVE DIAGNOSIS: Right pneumothorax. NAME OF PROCEDURE: Right tube thoracostomy. ESTIMATED BLOOD LOSS: 1 cc. SPECIMENS: None. INDICATIONS: The patient is a 72-year-old man, who has had bilateral pleural effusions. He had a st able minimal apical pneumothorax with decreasing chest tube output. I pulled his chest tube earlier this morning. He had a CTA performed to rule out pulmonary embolism due to increasing oxygen require ments, and a small to moderate pneumothorax was noted. A chest tube was indicated. DESCRIPTION OF PROCEDURE: The patient was in his room. Verbal consent obtained. A time-out was per formed. His right chest was prepped and draped in the usual sterile fashion. I infiltrated the area with 3 cc of 1% lidocaine. I made a small joan in the skin. I inserted the PleurX catheter. I con nected this to the Pleur-Evac. It was sutured into place. A Tegaderm applied. He tolerated the pro cedure well. Chest x-ray is pending. /[id number]/MODL
[2017-05-06] MEDS: TPN W/ FAMOTIDINE 1 EA BAG IV SCH (21:18)
[2017-05-07] MEDS: HEPARIN 5,000 UNIT/0.5 ML SYR SC SCH ×2 (05:24→14:03)
[2017-05-07 05:48] LABS: PLATELET COUNT 225 10^3/uL (150-400)
[2017-05-07 05:56] LABS: INR 1.55 (0.83-1.16); PROTIME(PATIENT) 18.6 SEC (12.0-15.0)
[2017-05-07] MEDS: CHLORHEXIDINE GLUCONATE 15 ML UDL PO SCH ×2 (08:35→20:12)
[2017-05-07] MEDS: morphINE SR 100 MG TAB PO SCH ×3 (08:35→21:27)
[2017-05-07] MEDS: PREGABALIN 75 MG CAP PO SCH ×3 (08:35→21:27)
[2017-05-07] MEDS: NICOTINE 21 MG/24 HR PATCH TD SCH (08:35)
[2017-05-07] MEDS ORDERED: FUROSEMIDE 40 MG/4 ML VIAL IVP SCH (09:00)
[2017-05-07] MEDS: COLLAGENASE 30 GM OINTMENT TP SCH (10:00)
--- NOTE | 2017-05-07 10:04 | ASMTCMCOM ---
CM Note CM Note Notes: 05/07/2017 Case Management Note: Reviewed chart. PT recommending Inpatient Rehab. Left VM for [facility] (ext [phone]) to evaluate pt. [facility] accepted pt. D/C date remains unclear. Case Management to follow. Date Signed: 05/07/2017 10:02 AM Electronically Signed By:Eunice Rojas RN
--- NOTE | 2017-05-07 10:04 | ASMTCMCOM ---
CM Note CM Note Notes: 05/07/2017 Case Management Note: Reviewed chart. PT recommending Inpatient Rehab. Left VM for [facility] (ext [phone]) to evaluate pt. [facility] accepted pt. D/C date remains unclear. Case Management to follow. Date Signed: 05/07/2017 10:02 AM Electronically Signed By:Eunice Rojas RN
--- NOTE | 2017-05-07 10:04 | ASMTCMCOM ---
CM Note CM Note Notes: 05/07/2017 Case Management Note: Reviewed chart. PT recommending Inpatient Rehab. Left VM for [facility] (ext [phone]) to evaluate pt. [facility] accepted pt. D/C date remains unclear. Case Management to follow. Date Signed: 05/07/2017 10:02 AM Electronically Signed By:Eunice Rojas RN
[2017-05-07] MEDS: IPRATROPIUM/ALBUTEROL 3 ML DEYVIAL IH PRN (10:17)
--- NOTE | 2017-05-07 10:17 | HOSPPROG ---
Hospitalist Progress Note Assessment/Plan: #Small bowel perforation/peritonitis: wound vac in place. IV abx. s/p CT-guided drainage of left subphrenic/perisplenic fluid collections #Septic shock: resolved #Acute blood loss anemia: retroperitoneal hemorrhage earlier this month. Monitor H/H. Hold SQH today #Right pneumothorax: chest tube placed 05/06 #Klebsiella/Bacteroides bacteremia: ID following. Cont Flagyl, Levaquin #Acute on chronic hypoxic resp failure: moderate BL effusions on CT. Baseline 2.5L. Hold lasix with low BP. No PE on recent CTA #Hypotension: mild this AM with some dizziness. Trial IV albumin. Hold Lasix ( did get morning dose) #YOLANDA: resolved #Atrial fibrillation: s/p 4 failed cardioversion in ED. h/o MAZE. No AC now with H/H #Retroperitoneal hemorrhage: right inguinal region ([id number]) on CT 04/22/17. last transfusion 04/28. H/H trending down. Monitor closely #Chronic pain: MS Contin #Tobacco abuse: nicotine patch #Deconditioning: PT/OT. To chair #DVT ppx: hold SQH, SCDs #Disp: warrants inpt admission with bacteremia, PTX. Requires IV abx, chest tube Patient new to my care today. I have reviewed prior notes, imaging, labs Subjective: mild dizziness this morning Objective: Vital Signs Temp Pulse Resp BP Pulse Ox 36.7 C 94 20 96/55 L 90 L 05/07/17 08:00 05/07/17 08:00 05/07/17 08:00 05/07/17 08:00 05/07/17 08:00 Laboratory Results 05/07/17 05:30 05/07/17 05:30 05/06/17 05/07/17 05/08/17 05:59 05:59 05:59 Intake Total 871 3893 Output Total 4587 2735 Balance -3654 1158 PT 18.6 SEC (12.0-15.0) H 05/07/17 05:30 INR 1.55 (0.83-1.16) H 05/07/17 05:30 - Physical Exam Constitutional: other (tired) Eyes: PERRL Ears, Nose, Mouth, Throat: moist mucous membranes Cardiovascular: regular rate and rhythym Respiratory: expiratory wheeze, other (decreased BS at bases) Gastrointestinal: other (abdominal wound vac in place) Genitourinary: no bladder fullness, ferguson in urethra Skin: warm, other (chronic venous stasis changes, mild erythema BL LEs) Musculoskeletal: generalized weakness, other (RUE PICC in place. Right subclavian CT in place) Neurologic: AAOx3, CN II-XII Intact Psychiatric: interacting appropriately ICD10 Worksheet Patient Problems: Problems Problem Status Onset Acute exacerbation of congestive heart failure Acute Atrial fibrillation with rapid ventricular response Acute DM type 1 (diabetes mellitus, type 1) Acute Perforated bowel Acute Renal failure Acute Altered mental status Acute Aspiration pneumonia Acute COPD (chronic obstructive pulmonary disease) Acute Lumbosacral radiculopathy at L5 Acute Narcotic dependency, continuous Acute Severe sepsis with septic shock Acute Spinal stenosis, lumbar Acute Tobacco dependence Acute
--- NOTE | 2017-05-07 10:55 | WOCRNPDOC ---
WOCRMaria Luisa Advanced Assessment Note - Skin Integrity Problem, Advanced Assess Medial Abdomen Surgical Wound/Incision Dressing Type: Black Vac Foam (x2), Wound Vac Dressing Description: Clean/Dry, Intact Exudate Amount: Scant Exudate Characteristic(s): Serosanguinous Integumentary Issue Intervention: Dressing Changed Wound Bed Constitution: Granulation Tissue (60%), Smooth Tissue (40%) Wound Edges: Epithelizing, Attached Site Measurement - Head-to-Toe Length X Width X Depth (cm): 23x4.3x2.8 Pulse Location & Description: Flushed with ns and gauze. Skin prep and drape nataly wound. x3 pieces of medium black foam simplace to wound bed. Vac restarted at -125 mm Hg continuous suction no leaks. Idalia and Odalys RN in room. Pt tolerated proceedure well. Next change Wed by wound RN. Medial Back Pressure Injury Dressing Type: Allevyn Life, Telfa Dressing Description: Clean/Dry, Intact Exudate Amount: Scant Exudate Characteristic(s): Sanguinous Integumentary Issue Intervention: Dressing Changed Nataly Wound Tissue: Macerated Wound Bed Color: [place], Yellow Wound Bed Constitution: Granulation Tissue (40%), Smooth Tissue (2-%), Adhered Slough (40%) Site Measurement - Head-to-Toe Length X Width X Depth (cm): 4x1.5x0.2 Skin Integrity Problem Comment: Attempted to mechanically debride slough with gauze. Unable to release most of slough, which is located in inferior portion of wound. Patient reports having this wound since his back surgery a year ago. Continue plan of care. Wound care will round again in approximately one week to see wound again. Left Groin Dressing Type: Open to Air Skin Integrity Problem Comment: Small area of intertrigenous dermatitis. Calazime cream present. Continue with a thin layer of calazime after cleaning BID with nataly wipes. May place a pillow case in skin fold to keep moisture under control. Oliva RN's present for entire consultation.
[2017-05-07] MEDS ORDERED: ALBUMIN 25% 100 ML IV ONE ×2 (11:20→19:00)
--- NOTE | 2017-05-07 14:41 | SOAPPROG ---
SOAP Progress Note Assessment/Plan: Assessment/Plan: 72yo M s/p ex-lap for incarcerated/strangulated RIGH c necrotic cecum, proximal perforated small bowel. S/p takeback washout for RP bleed, now closed - Jose is doing well on the floor. Had his CT removed and developed ptx, pigtail appears to be working with minimal output. Will plan to check CXR in AM and likely waterseal then. His abdomen is soft and distended but he denies pain and is tolerating his modified diet and passing flatus. KAREN is serosang. VAC changed today, I saw pictures of the bed and he has good granulation. Daily progress which is great. Likely get his CT out in the next few days but no other big plans from my perspective. 04/13/17 05:14 04/16/17 09:19 04/16/17 09:24 04/16/17 09:29 04/17/17 10:27 04/19/17 08:27 04/20/17 09:58 04/21/17 10:31 04/22/17 09:16 04/23/17 13:20 04/24/17 10:50 04/26/17 07:16 04/27/17 13:27 04/30/17 10:49 05/01/17 10:01 05/03/17 08:50 05/07/17 14:39 Subjective: Pain controlled, passing flatus Objective: Vital Signs Temp Pulse Resp BP Pulse Ox 37.3 C 87 17 102/55 L 97 05/07/17 11:33 05/07/17 11:33 05/07/17 11:33 05/07/17 11:33 05/07/17 11:33 Laboratory Results 05/07/17 05:30 05/07/17 05:30 05/06/17 05/07/17 05/08/17 05:59 05:59 05:59 Intake Total 871 3893 Output Total 4504 1941 600 Balance -3654 1158 -600 PT 18.6 SEC (12.0-15.0) H 05/07/17 05:30 INR 1.55 (0.83-1.16) H 05/07/17 05:30 ICD10 Worksheet Patient Problems: Problems Problem Status Onset Acute exacerbation of congestive heart failure Acute Atrial fibrillation with rapid ventricular response Acute DM type 1 (diabetes mellitus, type 1) Acute Perforated bowel Acute Renal failure Acute Altered mental status Acute Aspiration pneumonia Acute COPD (chronic obstructive pulmonary disease) Acute Lumbosacral radiculopathy at L5 Acute Narcotic dependency, continuous Acute Severe sepsis with septic shock Acute Spinal stenosis, lumbar Acute Tobacco dependence Acute
--- NOTE | 2017-05-07 17:34 | PCMIDPN ---
Assessment/Plan: Assessment/Plan: * Peritonitis associated with necrotic cecum: Continue levofloxacin and Flagyl. Plan at least 4 weeks of therapy post 2nd washout (tentative stop date of 05/14/2017). Consider CT scan prior to close of therapy. Continue to monitor leukocytosis. 05/07/17 17:31 05/07/17 17:33 Subjective: Patient complains of abdominal bloating and weakness. Working with PT and OT today. Objective: Vital Signs Temp Pulse Resp BP Pulse Ox 37.3 C 92 18 108/57 L 94 05/07/17 11:33 05/07/17 15:14 05/07/17 15:14 05/07/17 15:14 05/07/17 15:14 Laboratory Results 05/07/17 15:17 05/07/17 05:30 05/06/17 05/07/17 05/08/17 05:59 05:59 05:59 Intake Total 871 3893 550 Output Total 4525 2735 860 Balance -3654 1158 -310 Levofloxacin # 11 Metronidazole # 10 Antibiotics # 25 - Physical Exam General Appearance: alert, no apparent distress EENT: other ( black hairy tongue), No scleral icterus Respiratory: other ( decreased breath sounds both bases) Cardiac/Chest: regular rate, rhythm Abdomen: non-tender, distended ( mild), other ( midline wound VAC in place withut erythema) - Line/s RUE PICC Lines: No drainage, No erythema ICD10 Worksheet Patient Problems: Problems Problem Status Onset Acute exacerbation of congestive heart failure Acute Atrial fibrillation with rapid ventricular response Acute DM type 1 (diabetes mellitus, type 1) Acute Perforated bowel Acute Renal failure Acute Altered mental status Acute Aspiration pneumonia Acute COPD (chronic obstructive pulmonary disease) Acute Lumbosacral radiculopathy at L5 Acute Narcotic dependency, continuous Acute Severe sepsis with septic shock Acute Spinal stenosis, lumbar Acute Tobacco dependence Acute
[2017-05-07] MEDS: TPN W/ FAMOTIDINE 1 EA BAG IV SCH (21:21)
[2017-05-08] MEDS: PREGABALIN 75 MG CAP PO SCH ×3 (08:15→21:26)
[2017-05-08] MEDS: NICOTINE 21 MG/24 HR PATCH TD SCH (08:15)
[2017-05-08] MEDS: CHLORHEXIDINE GLUCONATE 15 ML UDL PO SCH ×2 (08:15→21:25)
[2017-05-08] MEDS: morphINE SR 100 MG TAB PO SCH ×3 (08:15→21:25)
--- NOTE | 2017-05-08 08:31 | HOSPPROG ---
Hospitalist Progress Note Assessment/Plan: #Fever: UA, CT abd/pelvis, blood cultures, WBC up to 18. CXR still with left opacity/effusion #Mild encephalopathy: meds vs infection? Fevered today. Eval as above, hold pain meds/Lyrica #Small bowel perforation/peritonitis: wound vac in place. IV abx. s/p CT-guided drainage of left subphrenic/perisplenic fluid collections -cont abx through 05/14 #YOLANDA: Cr. 1.4. up mildly. Likely intravascular dry #Septic shock: resolved #Acute blood loss anemia: CT today shows perc drain eroded into spleen with min output. Clamp today and medically stabilize with transfusion. Will try to out in next couple days #Right pneumothorax: chest tube placed 05/06. To waterseal this juliet, if CXR stable, DC tomorrow #Klebsiella/Bacteroides bacteremia: ID following. Cont Flagyl, Levaquin #Acute on chronic hypoxic resp failure: moderate BL effusions on CT. Baseline 2.5L. Lasix with blood. No PE on recent CTA #Hypotension: mild this AM with some dizziness. Give unit blood #Atrial fibrillation: s/p 4 failed cardioversion in ED. h/o MAZE. No AC now with H/H #Retroperitoneal hemorrhage: right inguinal region ([id number]) on CT 04/22/17. last transfusion 04/28. H/H trending down. Monitor closely #Chronic pain: MS Contin #Tobacco abuse: nicotine patch #Deconditioning: PT/OT. To chair #DVT ppx: hold SQH, SCDs #Disp: warrants inpt admission with bacteremia, PTX. Requires IV abx, chest tube Critical care time spent: 60 min bedside with patient, reviewing imaging, labs, and d/w Dr. Avendaño and Dr. Stacy Subjective: more somnolent this morning. Denies abd pain. Dizzy, but says this is not new Objective: Vital Signs Temp Pulse Resp BP Pulse Ox 37.2 C 100 14 97/45 L 91 L 05/08/17 07:53 05/08/17 07:53 05/08/17 07:53 05/08/17 07:53 05/08/17 07:53 Laboratory Results 05/07/17 15:17 05/08/17 06:05 05/07/17 05/08/1717 05:59 05:59 05:59 Intake Total 3893 2484 Output Total 2735 1470 Balance 1158 1014 PT 18.6 SEC (12.0-15.0) H 05/07/17 05:30 INR 1.55 (0.83-1.16) H 05/07/17 05:30 - Physical Exam Constitutional: cachectic (ill-appearing today), other (lethargic, falling asleep during interview) Ears, Nose, Mouth, Throat: moist mucous membranes Cardiovascular: regular rate and rhythym, No edema Respiratory: reduced air movement (at bases), rhonchi Gastrointestinal: other (abd wound with vac. [address] with sanginous drainage) Genitourinary: ferguson in urethra Musculoskeletal: generalized weakness Neurologic: CN II-XII Intact Psychiatric: other (oriented, but very somnolent) ICD10 Worksheet Patient Problems: Problems Problem Status Onset Acute exacerbation of congestive heart failure Acute Atrial fibrillation with rapid ventricular response Acute DM type 1 (diabetes mellitus, type 1) Acute Perforated bowel Acute Renal failure Acute Altered mental status Acute Aspiration pneumonia Acute COPD (chronic obstructive pulmonary disease) Acute Lumbosacral radiculopathy at L5 Acute Narcotic dependency, continuous Acute Severe sepsis with septic shock Acute Spinal stenosis, lumbar Acute Tobacco dependence Acute
--- NOTE | 2017-05-08 12:38 | PCMIDPN ---
Assessment/Plan: Assessment/Plan: 1. Sepsis secondary to necrotic cecum/peritonitis/abscess: - s/p colon resection with anastomosis. -Polymicrobial bacteremia with staph epi, bacteroides noted -Abd cx with Klebsiella. no new growth from IR drainage of perisplenic collection (04/24/17) -Currently on levaquin + flagyl -s/p washout out on 04/16/17. - Large retroperitoneal bleed, s/p surgery on 04/27/17. -Continue with current antibiotics for now. -On Day #23 from last wash out. 2. Fever - work up in progress with repeat blood cx today, f/u ct abd/pelvis, CXR- will follow Meds levaquin 750mg daily- 04/27/17 flagyl 500mg q8- 04/27/17 TPN s/p zosyn 4.5gm q6- micafungin 100mg daily Subjective: Fever today, more somnolent than over weekend. Denies abd pain. Appears weak. Denies sob. Objective: Vital Signs Temp Pulse Resp BP Pulse Ox 38.1 C 95 18 97/47 L 96 05/08/17 11:40 05/08/17 11:40 05/08/17 11:40 05/08/17 11:40 05/08/17 11:40 Laboratory Results 05/08/17 08:50 05/08/17 08:50 05/07/17 05/08/17 05/09/17 05:59 05:59 05:59 Intake Total 3893 2484 Output Total 2735 1470 258 Balance 1158 1014 -258 - Physical Exam General Appearance: other (awake, answers questions, but more somnolent than previously) Respiratory: coarse breath sounds Cardiac/Chest: regular rate, rhythm Extremities: No swelling Abdomen: normal bowel sounds, non-tender, soft, other (wound vac noted. nara drains with minimal bloody drainage. ), No distended ICD10 Worksheet Patient Problems: Problems Problem Status Onset Acute exacerbation of congestive heart failure Acute Atrial fibrillation with rapid ventricular response Acute DM type 1 (diabetes mellitus, type 1) Acute Perforated bowel Acute Renal failure Acute Altered mental status Acute Aspiration pneumonia Acute COPD (chronic obstructive pulmonary disease) Acute Lumbosacral radiculopathy at L5 Acute Narcotic dependency, continuous Acute Severe sepsis with septic shock Acute Spinal stenosis, lumbar Acute Tobacco dependence Acute
[2017-05-08] MEDS ORDERED: FUROSEMIDE 20 MG/2 ML VIAL IVP ONE ×2 (14:13→18:45)
[2017-05-08] MEDS: COLLAGENASE 30 GM OINTMENT TP SCH (14:47)
--- NOTE | 2017-05-08 15:19 | SOAPPROG ---
BRANDY Progress Note Assessment/Plan: Assessment/Plan: 72yo M s/p ex-lap for incarcerated/strangulated RIGH c necrotic cecum, proximal perforated small bowel. S/p takeback washout for RP bleed, now closed - On initial rounds this AM around 10, Jose was a little sleepy and confused. Throughout the day, his mental status seems to have improved and he is more with it this afternoon when I see him. I reviewed his CT scan with radiology and there is concern that the posterior perc drain has eroded into the spleen, although namrata drainage from this site has been minimal. Plan will be to clamp the posterior drain, transfuse and get a gameplan to remove the perc drain ( remove in room or remove with imaging). Also, will waterseal his CT, repeat CXR in AM and if no ptx will remove the tube. 04/13/17 05:14 04/16/17 09:19 04/16/17 09:24 04/16/17 09:29 04/17/17 10:27 04/19/17 08:27 04/20/17 09:58 04/21/17 10:31 04/22/17 09:16 04/23/17 13:20 04/24/17 10:50 04/26/17 07:16 04/27/17 13:27 04/30/17 10:49 05/01/17 10:01 05/03/17 08:50 05/07/17 14:39 05/08/17 15:16 Subjective: More alert this afternoon, was sleepy and little confused this AM Objective: Vital Signs Temp Pulse Resp BP Pulse Ox 38.1 C 95 18 97/47 L 96 05/08/17 11:40 05/08/17 11:40 05/08/17 11:40 05/08/17 11:40 05/08/17 11:40 Laboratory Results 05/08/17 13:57 05/08/17 08:50 05/07/17 05/08/17 05/09/17 05:59 05:59 05:59 Intake Total 3893 2484 Output Total 4525 1470 513 Balance 1158 1014 -513 PT 18.6 SEC (12.0-15.0) H 05/07/17 05:30 INR 1.55 (0.83-1.16) H 05/07/17 05:30 ICD10 Worksheet Patient Problems: Problems Problem Status Onset Acute exacerbation of congestive heart failure Acute Atrial fibrillation with rapid ventricular response Acute DM type 1 (diabetes mellitus, type 1) Acute Perforated bowel Acute Renal failure Acute Altered mental status Acute Aspiration pneumonia Acute COPD (chronic obstructive pulmonary disease) Acute Lumbosacral radiculopathy at L5 Acute Narcotic dependency, continuous Acute Severe sepsis with septic shock Acute Spinal stenosis, lumbar Acute Tobacco dependence Acute
--- NOTE | 2017-05-08 15:24 | GOP ---
[f rep st] OPERATIVE REPORT DATE OF OPERATION: 04/27/2017 SURGEON: Noe Lee MD MANUFACTURING ENGINEER SUPERVISOR: None. ANESTHESIOLOGIST: Jeffrey Nguyễn MD PREOPERATIVE DIAGNOSIS: Intraabdominal retroperitoneal hemorrhage. POSTOPERATIVE DIAGNOSIS: Intraabdominal retroperitoneal hemorrhage. PROCEDURE PERFORMED: Laparotomy with drainage and packing of giant retroperitoneal hematoma. FINDINGS: The patient was found to have 1500 cc of fresh clot and 2500 cc of old blood in the retroperitoneum surrounding his percutaneous left upper quadrant PERCUTANEOUS DRAIN: INDICATIONS: Shock. DESCRIPTION OF PROCEDURE: The patient wan taken to the operating room where he received satisfactory general endotracheal anesthesia by Dr. Nguyễn, placed in supine position, prepped and draped in the usual sterile fashion. The old incision was opened, small bowel was eviscerated carefully. Careful dissection extended between each loop of bowel which was then irrigated and exposed, but no major problems were encountered until we reached the base of the mesentery and the retroperitoneum. Massive posterior retroperitoneal hematoma was encountered. This was already leaking out, so it was further opened up and the hematoma was evacuated. A significant amount of fresh venous-type bleeding was encountered but no active actual bleeding site could be identified, partly because of difficulties with exposure with his bowel markedly distended and deep in the retroperitoneum. Hemostasis was obtained as much as possible and then the retroperitoneal cavity was tightly packed with 6 laparotomy pads and appeared to stop all bleeding. A large 19-Bengali KAREN drain was brought out through a separate stab incision and placed in the retroperitoneum over these packs. The rest of the abdomen was thoroughly irrigated and explored with no other active bleeding sites being seen. ABThera was used to cover the abdominal contents and the wound was left open with a wound VAC in place over the ABThera. He tolerated the procedure quite well. Blood loss from the procedure was possibly 1000 cc. There were no complications. He was taken to recovery room in stable condition. /[id number]/MODL MTDD
--- NOTE | 2017-05-08 15:24 | GOP ---
[f rep st] OPERATIVE REPORT DATE OF OPERATION: 04/27/2017 SURGEON: Noe Lee MD CASTING WHEEL OPERATOR HELPER: None. ANESTHESIOLOGIST: Jeffrey Nguyễn MD PREOPERATIVE DIAGNOSIS: Intraabdominal retroperitoneal hemorrhage. POSTOPERATIVE DIAGNOSIS: Intraabdominal retroperitoneal hemorrhage. PROCEDURE PERFORMED: Laparotomy with drainage and packing of giant retroperitoneal hematoma. FINDINGS: The patient was found to have 1500 cc of fresh clot and 2500 cc of old blood in the retroperitoneum surrounding his percutaneous left upper quadrant PERCUTANEOUS DRAIN: INDICATIONS: Shock. DESCRIPTION OF PROCEDURE: The patient wan taken to the operating room where he received satisfactory general endotracheal anesthesia by Dr. Nguyễn, placed in supine position, prepped and draped in the usual sterile fashion. The old incision was opened, small bowel was eviscerated carefully. Careful dissection extended between each loop of bowel which was then irrigated and exposed, but no major problems were encountered until we reached the base of the mesentery and the retroperitoneum. Massive posterior retroperitoneal hematoma was encountered. This was already leaking out, so it was further opened up and the hematoma was evacuated. A significant amount of fresh venous-type bleeding was encountered but no active actual bleeding site could be identified, partly because of difficulties with exposure with his bowel markedly distended and deep in the retroperitoneum. Hemostasis was obtained as much as possible and then the retroperitoneal cavity was tightly packed with 6 laparotomy pads and appeared to stop all bleeding. A large 19-Hebrew KAREN drain was brought out through a separate stab incision and placed in the retroperitoneum over these packs. The rest of the abdomen was thoroughly irrigated and explored with no other active bleeding sites being seen. ABThera was used to cover the abdominal contents and the wound was left open with a wound VAC in place over the ABThera. He tolerated the procedure quite well. Blood loss from the procedure was possibly 1000 cc. There were no complications. He was taken to recovery room in stable condition. /[id number]/MODL MTDD
--- NOTE | 2017-05-08 15:24 | GOP ---
[f rep st] OPERATIVE REPORT DATE OF OPERATION: 04/27/2017 SURGEON: Noe Lee MD COMMERCIAL FISHING VESSEL OPERATOR: None. ANESTHESIOLOGIST: Jeffrey Nguyễn MD PREOPERATIVE DIAGNOSIS: Intraabdominal retroperitoneal hemorrhage. POSTOPERATIVE DIAGNOSIS: Intraabdominal retroperitoneal hemorrhage. PROCEDURE PERFORMED: Laparotomy with drainage and packing of giant retroperitoneal hematoma. FINDINGS: The patient was found to have 1500 cc of fresh clot and 2500 cc of old blood in the retroperitoneum surrounding his percutaneous left upper quadrant PERCUTANEOUS DRAIN: INDICATIONS: Shock. DESCRIPTION OF PROCEDURE: The patient wan taken to the operating room where he received satisfactory general endotracheal anesthesia by Dr. Nguyễn, placed in supine position, prepped and draped in the usual sterile fashion. The old incision was opened, small bowel was eviscerated carefully. Careful dissection extended between each loop of bowel which was then irrigated and exposed, but no major problems were encountered until we reached the base of the mesentery and the retroperitoneum. Massive posterior retroperitoneal hematoma was encountered. This was already leaking out, so it was further opened up and the hematoma was evacuated. A significant amount of fresh venous-type bleeding was encountered but no active actual bleeding site could be identified, partly because of difficulties with exposure with his bowel markedly distended and deep in the retroperitoneum. Hemostasis was obtained as much as possible and then the retroperitoneal cavity was tightly packed with 6 laparotomy pads and appeared to stop all bleeding. A large 19-Korean KAREN drain was brought out through a separate stab incision and placed in the retroperitoneum over these packs. The rest of the abdomen was thoroughly irrigated and explored with no other active bleeding sites being seen. ABThera was used to cover the abdominal contents and the wound was left open with a wound VAC in place over the ABThera. He tolerated the procedure quite well. Blood loss from the procedure was possibly 1000 cc. There were no complications. He was taken to recovery room in stable condition. /[id number]/MODL MTDD
[2017-05-08] MEDS: TPN W/ FAMOTIDINE 1 EA BAG IV SCH (21:25)
[2017-05-09] MEDS: ALTEPLASE 2 MG VIAL IVP PRN ×2 (03:56→03:58)
[2017-05-09] MEDS: CHLORHEXIDINE GLUCONATE 15 ML UDL PO SCH ×2 (08:16→21:26)
[2017-05-09] MEDS: NICOTINE 21 MG/24 HR PATCH TD SCH (08:23)
--- NOTE | 2017-05-09 09:23 | SOAPPROG ---
SOAP Progress Note Assessment/Plan: Assessment: Assessment/Plan: 72yo M s/p ex-lap for incarcerated/strangulated RIGH c necrotic cecum, proximal perforated small bowel. S/p takeback washout for RP bleed, now closed CXR this morning demonstrating small right apical PTX versus artifact. Discussed c Dr. Avendaño, will leave pneumo catheter in place today Afebrile H/H stable Cont wound Vac Cont diet Cont pain control S: complaining of abdominal distension causing him breathing difficulty O: Afebrile Lying in bed, appears comforatable, NAD MMM Resp: no increased work of breathing Abd: softly distended, +BS, midline wound vac in place Objective: Vital Signs Temp Pulse Resp BP Pulse Ox 36.8 C 86 17 114/67 92 05/09/17 07:47 05/09/17 07:47 05/09/17 07:47 05/09/17 07:47 05/09/17 07:47 Laboratory Results 05/09/17 05:28 05/09/17 05:28 05/08/17 05/09/17 05/10/17 05:59 05:59 05:59 Intake Total 2484 2036 Output Total 1470 2263 Balance 1014 -227 PT 18.6 SEC (12.0-15.0) H 05/07/17 05:30 INR 1.55 (0.83-1.16) H 05/07/17 05:30 ICD10 Worksheet Patient Problems: Problems Problem Status Onset Acute exacerbation of congestive heart failure Acute Atrial fibrillation with rapid ventricular response Acute DM type 1 (diabetes mellitus, type 1) Acute Perforated bowel Acute Renal failure Acute Altered mental status Acute Aspiration pneumonia Acute COPD (chronic obstructive pulmonary disease) Acute Lumbosacral radiculopathy at L5 Acute Narcotic dependency, continuous Acute Severe sepsis with septic shock Acute Spinal stenosis, lumbar Acute Tobacco dependence Acute
[2017-05-09] MEDS: COLLAGENASE 30 GM OINTMENT TP SCH (11:09)
--- NOTE | 2017-05-09 11:28 | WOCRNPDOC ---
WOCRN Advanced Assessment Note - Skin Integrity Problem, Advanced Assess Medial Abdomen Surgical Wound/Incision Dressing Type: Black Vac Foam, Wound Vac Dressing Description: Clean/Dry, Intact Exudate Amount: Scant Exudate Characteristic(s): Serosanguinous Integumentary Issue Intervention: Dressing Changed Nataly Wound Tissue: Intact Wound Bed Color: Red, Yellow Wound Bed Constitution: Granulation Tissue (70%), Smooth Tissue (30%) Wound Edges: Attached, Well Defined Site Odor: None Skin Integrity Problem Comment: Wound cleaned with NS and gauze. Nataly wound skin prepped with skin prep and draped. One piece black foam used to fill wound bed. Reconnected to wound vac at -125mmHg continuous suction with good seal. RN Odalys in room to assist. Patient's questions answered. Wound care will round again on Friday 05/11 to change vac.
--- NOTE | 2017-05-09 11:42 | ASMTCMCOM ---
CM Note CM Note Notes: 05/09/2017 Case Management Note Reviewed chart, spoke w/RN. There are 2 d/c options at the moment. Option #1: Inpatient rehab following pt and course of hospitalization. Will make decision closer to d/c. Option #2: pt accepted to [facility] rehab. Faxed updates today. Case management to continue to follow. Date Signed: 05/09/2017 11:41 AM Electronically Signed By:Eunice Rojas RN
--- NOTE | 2017-05-09 11:42 | ASMTCMCOM ---
CM Note CM Note Notes: 05/09/2017 Case Management Note Reviewed chart, spoke w/RN. There are 2 d/c options at the moment. Option #1: Inpatient rehab following pt and course of hospitalization. Will make decision closer to d/c. Option #2: pt accepted to [facility] rehab. Faxed updates today. Case management to continue to follow. Date Signed: 05/09/2017 11:41 AM Electronically Signed By:Eunice Rojas RN
--- NOTE | 2017-05-09 11:42 | ASMTCMCOM ---
CM Note CM Note Notes: 05/09/2017 Case Management Note Reviewed chart, spoke w/RN. There are 2 d/c options at the moment. Option #1: Inpatient rehab following pt and course of hospitalization. Will make decision closer to d/c. Option #2: pt accepted to [facility] rehab. Faxed updates today. Case management to continue to follow. Date Signed: 05/09/2017 11:41 AM Electronically Signed By:Eunice Rojas RN
--- NOTE | 2017-05-09 11:54 | PCMIDPN ---
Assessment/Plan: Assessment/Plan: * Peritonitis associated with necrotic cecum: Low-grade temperature yesterday. CT findings reviewed with right-sided subdiaphragmatic fluid collection and probable splenic hematoma. Low-grade fever could be associated with either of these entities. Clinically improved today without further fever. Will continue levofloxacin and Flagyl. If fever persists, may need to consider sampling subdiaphragmatic collection. Will review further with Dr. Avendaño. 05/09/17 11:51 Subjective: Patient feels better today. Was confused yesterday with low-grade temperature. Mild abdominal discomfort and distension. Objective: Vital Signs Temp Pulse Resp BP Pulse Ox 36.8 C 86 17 114/67 92 05/09/17 07:47 05/09/17 07:47 05/09/17 07:47 05/09/17 07:47 05/09/17 07:47 Laboratory Results 05/09/17 05:28 05/09/17 05:28 05/08/17 05/09/17 05/10/17 05:59 05:59 05:59 Intake Total 2484 2036 Output Total 1470 2263 Balance 1014 -227 Levofloxacin # 13 Metronidazole number side 12 Antibiotics # 27 CT abdomen pelvis with subdiaphragmatic fluid collection on right and probable splenic hematoma with possible erosion of pigtail drain into splenic parenchyma - Physical Exam General Appearance: alert, no apparent distress, non-toxic EENT: No scleral icterus Cardiac/Chest: regular rate, rhythm Abdomen: non-tender, distended, other (Wound VAC in place centrally without erythema; 2 KAREN bulbs on left with old-appearing blood) - Line/s RUE PICC Lines: No drainage, No erythema ICD10 Worksheet Patient Problems: Problems Problem Status Onset Acute exacerbation of congestive heart failure Acute Atrial fibrillation with rapid ventricular response Acute DM type 1 (diabetes mellitus, type 1) Acute Perforated bowel Acute Renal failure Acute Altered mental status Acute Aspiration pneumonia Acute COPD (chronic obstructive pulmonary disease) Acute Lumbosacral radiculopathy at L5 Acute Narcotic dependency, continuous Acute Severe sepsis with septic shock Acute Spinal stenosis, lumbar Acute Tobacco dependence Acute
[2017-05-09] MEDS: PREGABALIN 75 MG CAP PO SCH ×3 (13:36→21:09)
[2017-05-09] MEDS: morphINE SR 100 MG TAB PO SCH ×3 (13:36→21:09)
--- NOTE | 2017-05-09 15:40 | HOSPPROG ---
Hospitalist Progress Note Assessment/Plan: #Fever: UA negative, CXR unchanged, subdiaphragmatic fluid collection. If fevers again may need to aspirate #Splenic hematoma: perc drain eroded into it. Clamped. Surg to decide when safe to pull. #Mild encephalopathy: resolved. Likely due to anemia. No new infection. #Small bowel perforation/peritonitis: wound vac in place. IV abx. s/p CT-guided drainage of left subphrenic/perisplenic fluid collections -cont abx through 05/14 #YOLANDA: Cr stable 1.4. Will dose lower dose Lasix 20mg IV with albumin #Septic shock: resolved #Acute blood loss anemia: CT today shows perc drain eroded into spleen with min output. Clamped post drain. H/H stable after 1 unit 05/08 #Right pneumothorax: chest tube placed 05/06. To waterseal this juliet, if CXR stable, DC tomorrow. Subcutaneous emphysema #Klebsiella/Bacteroides bacteremia: ID following. Cont Flagyl, Levaquin #Acute on chronic hypoxic resp failure: moderate BL effusions on CT. Baseline 2.5L. Lasix with blood. No PE on recent CTA #Hypotension: resolved after blood transfusion #Atrial fibrillation: s/p 4 failed cardioversion in ED. h/o MAZE. No AC now with H/H #Retroperitoneal hemorrhage: right inguinal region ([id number]) on CT 04/22/17. Stable on most recent CT #Chronic pain: MS Contin #Tobacco abuse: nicotine patch #Deconditioning: PT/OT. To chair. May benefit from LTAC #DVT ppx: hold SQH, SCDs #Disp: warrants inpt admission with bacteremia, PTX. Requires IV abx, chest tube Subjective: feeling better today. Mild abd pain. No dizziness Objective: Vital Signs Temp Pulse Resp BP Pulse Ox 36.7 C 84 15 119/49 L 95 05/09/17 12:00 05/09/17 12:00 05/09/17 12:00 05/09/17 12:00 05/09/17 12:00 Laboratory Results 05/09/17 05:28 05/09/17 05:28 05/08/17 05/09/17 05/10/17 05:59 05:59 05:59 Intake Total 2484 2036 Output Total 1470 2263 925 Balance 1014 -227 -925 PT 18.6 SEC (12.0-15.0) H 05/07/17 05:30 INR 1.55 (0.83-1.16) H 05/07/17 05:30 - Physical Exam Constitutional: chronically ill appearing Eyes: PERRL Cardiovascular: edema (+1 pedal edema), other (subcutaneous fullness left upper chest. Catheter in place) Respiratory: rhonchi, other (decreased BS left base) Gastrointestinal: other (wound vac in place. post drain clamped. ) Genitourinary: ferguson in urethra Skin: warm Musculoskeletal: generalized weakness Neurologic: AAOx3, CN II-XII Intact Psychiatric: interacting appropriately ICD10 Worksheet Patient Problems: Problems Problem Status Onset Acute exacerbation of congestive heart failure Acute Atrial fibrillation with rapid ventricular response Acute DM type 1 (diabetes mellitus, type 1) Acute Perforated bowel Acute Renal failure Acute Altered mental status Acute Aspiration pneumonia Acute COPD (chronic obstructive pulmonary disease) Acute Lumbosacral radiculopathy at L5 Acute Narcotic dependency, continuous Acute Severe sepsis with septic shock Acute Spinal stenosis, lumbar Acute Tobacco dependence Acute
[2017-05-09] MEDS ORDERED: SIMETHICONE 80 MG TAB CHEW PO PRN (17:51)
[2017-05-09] MEDS: ONDANSETRON 4 MG/2 ML VIAL IVP PRN (18:19)
[2017-05-09] MEDS: ACETAMINOPHEN 325 MG TAB PO PRN (18:33)
[2017-05-09] MEDS: TPN W/ FAMOTIDINE 1 EA BAG IV SCH (21:08)
[2017-05-10] MEDS: IPRATROPIUM/ALBUTEROL 3 ML DEYVIAL IH PRN (04:51)
[2017-05-10] MEDS: CHLORHEXIDINE GLUCONATE 15 ML UDL PO SCH ×2 (09:24→23:31)
[2017-05-10] MEDS: COLLAGENASE 30 GM OINTMENT TP SCH (09:24)
[2017-05-10] MEDS: PREGABALIN 75 MG CAP PO SCH (09:25)
[2017-05-10] MEDS: NICOTINE 21 MG/24 HR PATCH TD SCH (09:25)
[2017-05-10] MEDS: morphINE SR 100 MG TAB PO SCH (09:26)
[2017-05-10] MEDS ORDERED: FUROSEMIDE 20 MG/2 ML VIAL IVP SCH (10:45)
--- NOTE | 2017-05-10 11:04 | HOSPPROG ---
Hospitalist Progress Note Assessment/Plan: #Fever: UA negative, CXR unchanged, subdiaphragmatic fluid collection. If fevers again may need to aspirate? Blood cxs NGTD #Toxic encephalopathy: more somnolent today. Holding opioids, lyrica. Mildly acidotic on ABG, trial Bipap. #Splenic hematoma: perc drain eroded into it.pull it today #Small bowel perforation/peritonitis: wound vac in place. IV abx. s/p CT-guided drainage of left subphrenic/perisplenic fluid collections -cont abx through 05/14 #YOLANDA: Cr improved to 1.2 #Septic shock: resolved #Acute blood loss anemia: CT today shows perc drain eroded into spleen with min output. Clamped post drain. H/H stable after 1 unit 05/08 #Right pneumothorax: chest tube placed 05/06. Pull 05/10 #Klebsiella/Bacteroides bacteremia: ID following. Cont Flagyl, Levaquin #Acute on chronic hypoxic resp failure: moderate BL effusions on CT. Baseline 2.5L. Lasix with blood. No PE on recent CTA #Hypotension: improved after transfusion. Trial albumin. Will need some diuresis when tolerates #Atrial fibrillation: s/p 4 failed cardioversion in ED. h/o MAZE. No AC now with H/H #Retroperitoneal hemorrhage: right inguinal region ([id number]) on CT 04/22/17. Stable on most recent CT #Chronic pain: holding with encephalopathy #Tobacco abuse: nicotine patch #Deconditioning: PT/OT. To chair. May benefit from LTAC #DVT ppx: hold SQH, SCDs #Disp: warrants inpt admission with bacteremia, PTX. Requires IV abx, chest tube Subjective: increased somnolence today Objective: Vital Signs Temp Pulse Resp BP Pulse Ox 36.9 C 96 24 H 99/60 L 90 L 05/10/17 04:00 05/10/17 10:00 05/10/17 10:00 05/10/17 10:00 05/10/17 10:00 Laboratory Results 05/10/17 06:36 05/10/17 06:36 05/09/17 05/10/17 05/11/17 05:59 05:59 05:59 Intake Total 2036 2817 Output Total 2263 2480 Balance -227 337 PT 18.6 SEC (12.0-15.0) H 05/07/17 05:30 INR 1.55 (0.83-1.16) H 05/07/17 05:30 - Physical Exam Constitutional: chronically ill appearing, other (falling asleep during exam) Ears, Nose, Mouth, Throat: dry mucous membranes Cardiovascular: regular rate and rhythym, edema (+1 ankle edema), other ( pigtail catheter RUE chest) Respiratory: other (decreased BS at bases) Gastrointestinal: other (wound vac in place. Anterior/posteroir perc drain..) Genitourinary: ferguson in urethra (yellow urine) Musculoskeletal: generalized weakness Neurologic: CN II-XII Intact, other (very somnolent. Mumbling. Follows commands , will squeeze hands) ICD10 Worksheet Patient Problems: Problems Problem Status Onset Acute exacerbation of congestive heart failure Acute Atrial fibrillation with rapid ventricular response Acute DM type 1 (diabetes mellitus, type 1) Acute Perforated bowel Acute Renal failure Acute Altered mental status Acute Aspiration pneumonia Acute COPD (chronic obstructive pulmonary disease) Acute Lumbosacral radiculopathy at L5 Acute Narcotic dependency, continuous Acute Severe sepsis with septic shock Acute Spinal stenosis, lumbar Acute Tobacco dependence Acute
[2017-05-10] MEDS ORDERED: ALBUMIN 25% 100 ML IV ONE (13:06)
--- NOTE | 2017-05-10 13:55 | SOAPPROG ---
BRANDY Progress Note Assessment/Plan: Assessment/Plan: 72yo M s/p ex-lap for incarcerated/strangulated RIGH c necrotic cecum, proximal perforated small bowel. S/p takeback washout for RP bleed, now closed - Jose is more confused today than previous. usually this is directly related to his drifting Hb but it was rechecked and relatively stable. His CT scan showed that the perc drain is likely in a monty-splenic hematoma and not in the spleen proper so will likely pull today. Hia ABG is not great but not overly acidotic so dont feel that it explains his mental status. I was overall reassured by the remained of his abdomen on both the CT and his exam today, there is a small collection on the R side which I am hesitant to perc drain as draining the fluid collection on the other side caused more problems than it helped. Will cont to pursue reasons for his mental status. Will also pull his CT and L perc KAREN. 04/13/17 05:14 04/16/17 09:19 04/16/17 09:24 04/16/17 09:29 04/17/17 10:27 04/19/17 08:27 04/20/17 09:58 04/21/17 10:31 04/22/17 09:16 04/23/17 13:20 04/24/17 10:50 04/26/17 07:16 04/27/17 13:27 04/30/17 10:49 05/01/17 10:01 05/03/17 08:50 05/07/17 14:39 05/08/17 15:16 05/10/17 13:53 Subjective: more confused this AM than previously. Objective: Vital Signs Temp Pulse Resp BP Pulse Ox 37.4 C 92 21 H 97/51 L 90 L 05/10/17 12:00 05/10/17 12:14 05/10/17 12:14 05/10/17 12:14 05/10/17 10:00 Laboratory Results 05/10/17 11:40 05/10/17 06:36 05/09/17 05/10/17 05/11/17 05:59 05:59 05:59 Intake Total 2032 9077 Output Total 2263 2480 Balance -227 337 PT 18.6 SEC (12.0-15.0) H 05/07/17 05:30 INR 1.55 (0.83-1.16) H 05/07/17 05:30 ICD10 Worksheet Patient Problems: Problems Problem Status Onset Acute exacerbation of congestive heart failure Acute Atrial fibrillation with rapid ventricular response Acute DM type 1 (diabetes mellitus, type 1) Acute Perforated bowel Acute Renal failure Acute Altered mental status Acute Aspiration pneumonia Acute COPD (chronic obstructive pulmonary disease) Acute Lumbosacral radiculopathy at L5 Acute Narcotic dependency, continuous Acute Severe sepsis with septic shock Acute Spinal stenosis, lumbar Acute Tobacco dependence Acute
--- NOTE | 2017-05-10 15:59 | PCMIDPN ---
Assessment/Plan: Assessment: Septic shock secondary to peritonitis after incarcerated cecum became necrotic. Continues to have elevated white count. Plan: 1. Continue Levaquin and Flagyl. 2. Follow-up clinical course. Subjective: Patient without significant change. No fevers. Objective: Levaquin # 14 Flagyl # 13 Vital Signs Temp Pulse Resp BP Pulse Ox 37.4 C 92 21 H 97/51 L 90 L 05/10/17 12:14 05/10/17 12:14 05/10/17 12:14 05/10/17 12:14 05/10/17 10:00 Laboratory Results 05/10/17 11:40 05/10/17 06:36 05/09/17 05/10/17 05/11/17 05:59 05:59 05:59 Intake Total 2036 2817 Output Total 2263 2480 650 Balance -227 337 -650 - Physical Exam General Appearance: WD/WN, alert, no apparent distress, non-toxic ICD10 Worksheet Patient Problems: Problems Problem Status Onset Acute exacerbation of congestive heart failure Acute Atrial fibrillation with rapid ventricular response Acute DM type 1 (diabetes mellitus, type 1) Acute Perforated bowel Acute Renal failure Acute Altered mental status Acute Aspiration pneumonia Acute COPD (chronic obstructive pulmonary disease) Acute Lumbosacral radiculopathy at L5 Acute Narcotic dependency, continuous Acute Severe sepsis with septic shock Acute Spinal stenosis, lumbar Acute Tobacco dependence Acute
[2017-05-10] MEDS: TPN W/ FAMOTIDINE 1 EA BAG IV SCH (23:31)
[2017-05-11] MEDS: NICOTINE 21 MG/24 HR PATCH TD SCH (09:57)
[2017-05-11] MEDS ORDERED: ALTEPLASE 2 MG VIAL IVP PRN (10:10)
--- NOTE | 2017-05-11 10:51 | ASMTCMCOM ---
CM Note CM Note Notes: Met w/pt's mirrRosalia to discuss LTACs. No [facility] [place] [facility] and [facility] are two she is considering. She will discuss with her aunt (patients sister) and get back to us and then we can send referral. D/W Dr Cast and RN. Date Signed: 05/11/2017 10:51 AM Electronically Signed By:Dalila Lakhani RN
--- NOTE | 2017-05-11 10:59 | PCMIDPN ---
Assessment/Plan: Septic shock due to peritonitis associated with necrotic cecum: OR cultures with Klebsiella, Bacteroides. Fascia is now close after multiple washouts. Hemodynamics improved but slight elevation of WBC. Course also complicated by severe coagulopathy potential exacerbated by B lactam mediated thrombocytopenia. L subphrenic fluid collection 04/24 culture was negative. Imaging 05/08 shows subphrenic fluid collection enlarging and increased consolidation. Also with fever and leukocytosis, clinic status remains tenuous. Possible source of ongoing fever, leukocytosis includes ongoing intra- abdominal process, HAP, drug fever Recommendations: just continue close monitoring for now. no antibiotic changes. If diet advanced to PO could consider change to PO levofloxacin Medications, Levofloxacin 750mg IV daily #15 flagyl 50mg IV q8 , #[address] Cast Subjective: no diarrhea discussed with daughter if her father would want to continue with aggressive therapy. She plans on discussing with him tonight one of drains removed yesterday, drain output minimal Objective: Vital Signs Temp Pulse Resp BP Pulse Ox 37.9 C 91 20 98/60 L 92 05/11/17 08:35 05/11/17 08:35 05/11/17 08:35 05/11/17 08:35 05/11/17 08:35 Laboratory Results 05/11/17 03:50 05/11/17 03:50 05/10/17 05/11/17 05/12/17 05:59 05:59 05:59 Intake Total 2817 1522 Output Total 2480 1650 Balance 337 -128 - Physical Exam General Appearance: alert, other (chr ill appearing) Respiratory: crackles (scattered), other (decreased bs in bases), No accessory muscle use Neck: supple Cardiac/Chest: tachycardia Extremities: pedal edema Abdomen: non-tender, soft, other (2 KAREN drain with small amt blood in bulbs), No peritoneal signs Skin: pallor, No rash Neuro/Psych: alert, disoriented to time, confused - Line/s PIV Lines: other (R forearm), No drainage, No erythema ICD10 Worksheet Patient Problems: Problems Problem Status Onset Acute exacerbation of congestive heart failure Acute Atrial fibrillation with rapid ventricular response Acute DM type 1 (diabetes mellitus, type 1) Acute Perforated bowel Acute Renal failure Acute Altered mental status Acute Aspiration pneumonia Acute COPD (chronic obstructive pulmonary disease) Acute Lumbosacral radiculopathy at L5 Acute Narcotic dependency, continuous Acute Severe sepsis with septic shock Acute Spinal stenosis, lumbar Acute Tobacco dependence Acute
--- NOTE | 2017-05-11 12:18 | WOCRNPDOC ---
WOCRN Advanced Assessment Note - Skin Integrity Problem, Advanced Assess Medial Abdomen Surgical Wound/Incision Dressing Type: Black Vac Foam, Wound Vac Exudate Amount: Scant Exudate Color: Reddish/Yellow Exudate Characteristic(s): Serosanguinous Integumentary Issue Intervention: Dressing Changed Nataly Wound Tissue: Intact Nataly Wound Swelling: None Wound Bed Color: Red Wound Bed Constitution: Granulation Tissue (90%), Adhered Slough (10%) Wound Edges: Attached, Well Defined Skin Integrity Problem Comment: Report from GUNNAR [place] was that night RN "had issues" with a leak throughout the night with some success adding tegaderm to drape. Dr. Avendaño in room to observe wound and reported vac alarming. At this time, vac not to suction. Dressing taken down and wound cleaned with NS and gauze. Nataly wound skin prepped and draped. One piece granulofoam cut to fit wound bed. Patient reattached to suction at -125mmHg with good seal achieved. Patient tolerated procedure well. Student GUNNAR Baltazar in room and observing. Wound care will round again on Sunday for vac change.
[2017-05-11] MEDS: COLLAGENASE 30 GM OINTMENT TP SCH (13:21)
--- NOTE | 2017-05-11 14:35 | SOAPPROG ---
SOAP Progress Note Assessment/Plan: Assessment/Plan: 72yo M s/p ex-lap for incarcerated/strangulated RIGH c necrotic cecum, proximal perforated small bowel. S/p takeback washout for RP bleed, now closed - Still more confused this AM moreso than last evening. Denies pain, minimal PO intake but tolerating. CENTRAL OFFICE OPERATOR SUPERVISOR to eval today given his mentation and wet sounding airway. WBC down to 15k, KAREN bloody but slowing. - Dtr to discuss goals of care with patient today, I dont feel we have lost ground but we arent making a lot of daily progress and I fear that if her persists he may need re-intubation. - Cont TPN, cont diet as appropriate per CENTRAL OFFICE OPERATOR SUPERVISOR. - Cont PT OT as tolerates. - Transfuse as needed for Hb <7 04/13/17 05:14 04/16/17 09:19 04/16/17 09:24 04/16/17 09:29 04/17/17 10:27 04/19/17 08:27 04/20/17 09:58 04/21/17 10:31 04/22/17 09:16 04/23/17 13:20 04/24/17 10:50 04/26/17 07:16 04/27/17 13:27 04/30/17 10:49 05/01/17 10:01 05/03/17 08:50 05/07/17 14:39 05/08/17 15:16 05/10/17 13:53 05/11/17 14:33 Subjective: A little confused today, but better than be was yesterday AM Objective: Vital Signs Temp Pulse Resp BP Pulse Ox 37.7 C 90 20 114/58 L 91 L 05/11/17 11:36 05/11/17 11:36 05/11/17 11:36 05/11/17 11:36 05/11/17 11:36 Laboratory Results 05/11/17 03:50 05/11/17 03:50 05/10/17 05/11/17 05/12/17 05:59 05:59 05:59 Intake Total 2817 1522 Output Total 2480 1650 1100 Balance 337 -128 -1100 PT 18.6 SEC (12.0-15.0) H 05/07/17 05:30 INR 1.55 (0.83-1.16) H 05/07/17 05:30 ICD10 Worksheet Patient Problems: Problems Problem Status Onset Acute exacerbation of congestive heart failure Acute Atrial fibrillation with rapid ventricular response Acute DM type 1 (diabetes mellitus, type 1) Acute Perforated bowel Acute Renal failure Acute Altered mental status Acute Aspiration pneumonia Acute COPD (chronic obstructive pulmonary disease) Acute Lumbosacral radiculopathy at L5 Acute Narcotic dependency, continuous Acute Severe sepsis with septic shock Acute Spinal stenosis, lumbar Acute Tobacco dependence Acute
--- NOTE | 2017-05-11 14:35 | SOAPPROG ---
SOAP Progress Note Assessment/Plan: Assessment/Plan: 72yo M s/p ex-lap for incarcerated/strangulated RIGH c necrotic cecum, proximal perforated small bowel. S/p takeback washout for RP bleed, now closed - Still more confused this AM moreso than last evening. Denies pain, minimal PO intake but tolerating. GARDEN CENTER MANAGER to eval today given his mentation and wet sounding airway. WBC down to 15k, KAREN bloody but slowing. - Dtr to discuss goals of care with patient today, I dont feel we have lost ground but we arent making a lot of daily progress and I fear that if her persists he may need re-intubation. - Cont TPN, cont diet as appropriate per GARDEN CENTER MANAGER. - Cont PT OT as tolerates. - Transfuse as needed for Hb <7 04/13/17 05:14 04/16/17 09:19 04/16/17 09:24 04/16/17 09:29 04/17/17 10:27 04/19/17 08:27 04/20/17 09:58 04/21/17 10:31 04/22/17 09:16 04/23/17 13:20 04/24/17 10:50 04/26/17 07:16 04/27/17 13:27 04/30/17 10:49 05/01/17 10:01 05/03/17 08:50 05/07/17 14:39 05/08/17 15:16 05/10/17 13:53 05/11/17 14:33 Subjective: A little confused today, but better than be was yesterday AM Objective: Vital Signs Temp Pulse Resp BP Pulse Ox 37.7 C 90 20 114/58 L 91 L 05/11/17 11:36 05/11/17 11:36 05/11/17 11:36 05/11/17 11:36 05/11/17 11:36 Laboratory Results 05/11/17 03:50 05/11/17 03:50 05/10/17 05/11/17 05/12/17 05:59 05:59 05:59 Intake Total 2817 1522 Output Total 2480 1650 1100 Balance 337 -128 -1100 PT 18.6 SEC (12.0-15.0) H 05/07/17 05:30 INR 1.55 (0.83-1.16) H 05/07/17 05:30 ICD10 Worksheet Patient Problems: Problems Problem Status Onset Acute exacerbation of congestive heart failure Acute Atrial fibrillation with rapid ventricular response Acute DM type 1 (diabetes mellitus, type 1) Acute Perforated bowel Acute Renal failure Acute Altered mental status Acute Aspiration pneumonia Acute COPD (chronic obstructive pulmonary disease) Acute Lumbosacral radiculopathy at L5 Acute Narcotic dependency, continuous Acute Severe sepsis with septic shock Acute Spinal stenosis, lumbar Acute Tobacco dependence Acute
--- NOTE | 2017-05-11 14:35 | SOAPPROG ---
SOAP Progress Note Assessment/Plan: Assessment/Plan: 72yo M s/p ex-lap for incarcerated/strangulated RIGH c necrotic cecum, proximal perforated small bowel. S/p takeback washout for RP bleed, now closed - Still more confused this AM moreso than last evening. Denies pain, minimal PO intake but tolerating. PICK UP WORKER to eval today given his mentation and wet sounding airway. WBC down to 15k, KAREN bloody but slowing. - Dtr to discuss goals of care with patient today, I dont feel we have lost ground but we arent making a lot of daily progress and I fear that if her persists he may need re-intubation. - Cont TPN, cont diet as appropriate per PICK UP WORKER. - Cont PT OT as tolerates. - Transfuse as needed for Hb <7 04/13/17 05:14 04/16/17 09:19 04/16/17 09:24 04/16/17 09:29 04/17/17 10:27 04/19/17 08:27 04/20/17 09:58 04/21/17 10:31 04/22/17 09:16 04/23/17 13:20 04/24/17 10:50 04/26/17 07:16 04/27/17 13:27 04/30/17 10:49 05/01/17 10:01 05/03/17 08:50 05/07/17 14:39 05/08/17 15:16 05/10/17 13:53 05/11/17 14:33 Subjective: A little confused today, but better than be was yesterday AM Objective: Vital Signs Temp Pulse Resp BP Pulse Ox 37.7 C 90 20 114/58 L 91 L 05/11/17 11:36 05/11/17 11:36 05/11/17 11:36 05/11/17 11:36 05/11/17 11:36 Laboratory Results 05/11/17 03:50 05/11/17 03:50 05/10/17 05/11/17 05/12/17 05:59 05:59 05:59 Intake Total 2817 1522 Output Total 2480 1650 1100 Balance 337 -128 -1100 PT 18.6 SEC (12.0-15.0) H 05/07/17 05:30 INR 1.55 (0.83-1.16) H 05/07/17 05:30 ICD10 Worksheet Patient Problems: Problems Problem Status Onset Acute exacerbation of congestive heart failure Acute Atrial fibrillation with rapid ventricular response Acute DM type 1 (diabetes mellitus, type 1) Acute Perforated bowel Acute Renal failure Acute Altered mental status Acute Aspiration pneumonia Acute COPD (chronic obstructive pulmonary disease) Acute Lumbosacral radiculopathy at L5 Acute Narcotic dependency, continuous Acute Severe sepsis with septic shock Acute Spinal stenosis, lumbar Acute Tobacco dependence Acute
--- NOTE | 2017-05-11 15:03 | WOCRNPDOC ---
WOCRN Advanced Assessment Note - Skin Integrity Problem, Advanced Assess Medial Back Pressure Injury Dressing Type: Allevyn Life, Telfa Dressing Description: Intact Exudate Amount: Minimal Exudate Color: Reddish/Yellow Exudate Characteristic(s): Serosanguinous Integumentary Issue Intervention: Dressing Changed, Dressing Initialed & Dated, Mechanical Debridement Nataly Wound Tissue: Macerated, Scarred Nataly Wound Swelling: Mild Wound Bed Color: Red, Yellow Wound Bed Constitution: Smooth Tissue (60%), Mixed Loose & Adhered Slough/ Eschar (40%) Site Odor: None Pressure Injury Stage: Stage 3 Pressure Injury Present on Admit: Yes (Noted in H&P and previous hospitalizations) Skin Integrity Problem Comment: Decreased slough since previous assessment, approx. 40% remaining. Wound continues to have chronic, non-healing appearance. Margins are macerated circumferentially; skin prep applied x2 to better protect this tissue. Site cleansed w/ NS and gauze, and slough cross-hatched to allow better penetration of Santyl. I am reluctant to sharp debride this wound due to patient's overall status, as I am not sure this wound is capable of healing right now. Current goal is to continue enzymatic debridement w/ Santyl, as this is relatively non-invasive and currently well-tolerated. Report given to motion picture projectionist Nandu. Will re-assess this wound on Sunday or Sunday.
--- NOTE | 2017-05-11 15:03 | WOCRNPDOC ---
WOCRN Advanced Assessment Note - Skin Integrity Problem, Advanced Assess Medial Back Pressure Injury Dressing Type: Allevyn Life, Telfa Dressing Description: Intact Exudate Amount: Minimal Exudate Color: Reddish/Yellow Exudate Characteristic(s): Serosanguinous Integumentary Issue Intervention: Dressing Changed, Dressing Initialed & Dated, Mechanical Debridement Nataly Wound Tissue: Macerated, Scarred Nataly Wound Swelling: Mild Wound Bed Color: Red, Yellow Wound Bed Constitution: Smooth Tissue (60%), Mixed Loose & Adhered Slough/ Eschar (40%) Site Odor: None Pressure Injury Stage: Stage 3 Pressure Injury Present on Admit: Yes (Noted in H&P and previous hospitalizations) Skin Integrity Problem Comment: Decreased slough since previous assessment, approx. 40% remaining. Wound continues to have chronic, non-healing appearance. Margins are macerated circumferentially; skin prep applied x2 to better protect this tissue. Site cleansed w/ NS and gauze, and slough cross-hatched to allow better penetration of Santyl. I am reluctant to sharp debride this wound due to patient's overall status, as I am not sure this wound is capable of healing right now. Current goal is to continue enzymatic debridement w/ Santyl, as this is relatively non-invasive and currently well-tolerated. Report given to rail track layer Nandu. Will re-assess this wound on Sunday or Sunday.
--- NOTE | 2017-05-11 15:03 | WOCRNPDOC ---
WOCRN Advanced Assessment Note - Skin Integrity Problem, Advanced Assess Medial Back Pressure Injury Dressing Type: Allevyn Life, Telfa Dressing Description: Intact Exudate Amount: Minimal Exudate Color: Reddish/Yellow Exudate Characteristic(s): Serosanguinous Integumentary Issue Intervention: Dressing Changed, Dressing Initialed & Dated, Mechanical Debridement Nataly Wound Tissue: Macerated, Scarred Nataly Wound Swelling: Mild Wound Bed Color: Red, Yellow Wound Bed Constitution: Smooth Tissue (60%), Mixed Loose & Adhered Slough/ Eschar (40%) Site Odor: None Pressure Injury Stage: Stage 3 Pressure Injury Present on Admit: Yes (Noted in H&P and previous hospitalizations) Skin Integrity Problem Comment: Decreased slough since previous assessment, approx. 40% remaining. Wound continues to have chronic, non-healing appearance. Margins are macerated circumferentially; skin prep applied x2 to better protect this tissue. Site cleansed w/ NS and gauze, and slough cross-hatched to allow better penetration of Santyl. I am reluctant to sharp debride this wound due to patient's overall status, as I am not sure this wound is capable of healing right now. Current goal is to continue enzymatic debridement w/ Santyl, as this is relatively non-invasive and currently well-tolerated. Report given to trimming machine operator Nandu. Will re-assess this wound on Sunday or Sunday.
--- NOTE | 2017-05-11 18:32 | HOSPPROG ---
Hospitalist Progress Note Assessment/Plan: Assessment: 72-year-old male presents with septic shock in the setting of small bowel perforation and peritonitis with bacteremia and numerous other complications Plan: #Dysphagia: patient is high aspiration risk 2/2 mental status and intubation/ critical illness -repeat MOLDED GOODS INSPECTOR TRIMMER eval today, VFSS when able -cont TPN, replace PICC line today #Acute Toxic and Metabolic encephalopathy: continues to have poor concentration today, repeating ABG to gauge whether acidosis cleared #Splenic hematoma: drain dislodged from area #Small bowel perforation/peritonitis: wound vac in place. IV abx. s/p CT-guided drainage of left subphrenic/perisplenic fluid collections -cont abx through 05/14 -if WBC rising or fevers more persistent, will repeat abd imaging -d/w Dr. Avendaño, recs attempt at feeding if able to swallow #YOLANDA: Cr improved to 1.3 #Septic shock: POA, resolved #Acute blood loss anemia: s/p 1u PRBC, cont monitor, 7.4 #Right pneumothorax: chest tube placed 05/06. [id number] #Klebsiella/Bacteroides bacteremia: ID following. Cont Flagyl, Levaquin #Acute on chronic hypoxic resp failure: acute moderate BL pleural effusions on CT. Baseline 2.5L, required intubating, 2/2 acute diastolic CHF + pleural effusion + atelectasis -cont BiPAP qHS # Metabolic Acidosis: acute, repeat ABG to gauge pH #Acute diastolic CHF exacerbation: 2/2 IVF required for sepsis tx, diuresed while on vent #Atelectasis: Acute, 2/2 immobility #Atrial fibrillation: s/p 4 failed cardioversion in ED. h/o MAZE. No AC now with H/H #Retroperitoneal hemorrhage: right inguinal region ([id number]) on CT 04/22/17. Stable on most recent CT #Chronic pain w/ continuous opiate dependency: holding with encephalopathy #Tobacco abuse: nicotine patch #Deconditioning: PT/OT. To chair. May benefit from LTAC #DVT ppx: hold SQH, SCDs #Disp: ADD uncertain High level of medical complexity, high risk worsening morbidity/mortality, 2/2 above. Subjective: reports mild pain today across abd Objective: Vital Signs Temp Pulse Resp BP Pulse Ox 37.7 C 90 20 114/58 L 91 L 05/11/17 11:36 05/11/17 11:36 05/11/17 11:36 05/11/17 11:36 05/11/17 11:36 Laboratory Results 05/11/17 03:50 05/11/17 03:50 05/10/17 05/11/17 05/12/17 05:59 05:59 05:59 Intake Total 2817 1522 Output Total 2480 1650 1300 Balance 337 -128 -1300 PT 18.6 SEC (12.0-15.0) H 05/07/17 05:30 INR 1.55 (0.83-1.16) H 05/07/17 05:30 - Physical Exam Constitutional: no apparent distress, chronically ill appearing, uncomfortable Cardiovascular: regular rate and rhythym, no murmur, rub, or gallop, edema (1+ bilat LE), No irregularly irregular, No tachycardia Respiratory: no respiratory distress, reduced air movement (bilat bases), inspiratory crackles, No respiratory distress Gastrointestinal: normoactive bowel sounds, distension (mild) Skin: other (ichthyosis bilat LE w/ blanching erythema, non-tender, flaking) Neurologic: sensation intact bilaterally, other (AAOx2), No facial droop Psychiatric: flat affect, poor memory, other (concentration 2/7) ICD10 Worksheet Patient Problems: Problems Problem Status Onset Acute exacerbation of congestive heart failure Acute Atrial fibrillation with rapid ventricular response Acute DM type 1 (diabetes mellitus, type 1) Acute Perforated bowel Acute Renal failure Acute Altered mental status Acute Aspiration pneumonia Acute COPD (chronic obstructive pulmonary disease) Acute Lumbosacral radiculopathy at L5 Acute Narcotic dependency, continuous Acute Severe sepsis with septic shock Acute Spinal stenosis, lumbar Acute Tobacco dependence Acute
[2017-05-11] MEDS: CHLORHEXIDINE GLUCONATE 15 ML UDL PO SCH ×2 (18:44→21:07)
[2017-05-11] MEDS: TPN W/ FAMOTIDINE 1 EA BAG IV SCH (20:06)
[2017-05-12] MEDS: CHLORHEXIDINE GLUCONATE 15 ML UDL PO SCH ×2 (08:28→20:18)
[2017-05-12] MEDS: NICOTINE 21 MG/24 HR PATCH TD SCH (08:28)
[2017-05-12] MEDS: D5W 1,000 ML IV SCH (09:47)
--- NOTE | 2017-05-12 10:17 | PCMIDPN ---
Assessment/Plan: Septic shock due to peritonitis associated with necrotic cecum: OR cultures with Klebsiella, Bacteroides. Fascia is now close after multiple washouts now wound vac in place. Course also complicated by severe coagulopathy potential exacerbated by B lactam mediated thrombocytopenia. L subphrenic fluid collection 04/24 culture was negative. Imaging 05/08 shows R subphrenic fluid collection enlarging and increased RLL consolidation. Still with stable leukocytosis, but mental status improved today, no fever since 05/10. Possible source of leukocytosis includes ongoing intra-abdominal process/hematoma, HAP, drug fever Recommendations: no antibiotic changes. If diet advanced to PO could consider change to PO levofloxacin. To further eval for drug reaction : check WBC diff to eval for eosinophils and LFTs. Difficult to assess source control, consider dc antibiotics soon. Medications, Levofloxacin 750mg IV daily #16 flagyl 50mg IV q8 , #15 Subjective: patient with many c/o today regarding inability to drink H2O, tightness of wound vac. Much more animated. wanting to know when his daughter will be here Objective: Vital Signs Temp Pulse Resp BP Pulse Ox 36.7 C 90 20 147/90 H 96 05/12/17 08:00 05/12/17 08:00 05/12/17 08:00 05/12/17 08:00 05/12/17 08:00 Laboratory Results 05/12/17 05:50 05/12/17 05:50 05/11/17 05/12/17 05/13/17 05:59 05:59 05:59 Intake Total 1522 400 Output Total 1650 3000 5 Balance -128 -2600 -5 General Appearance: alert, chr ill appearing Respiratory: crackles,scattered, decreased bs in bases, No accessory muscle use Neck: supple Cardiac/Chest: RRR Extremities: minimal pedal edema, hemosiderin staining B LE Abdomen: non-tender, soft, 2 KAREN drain with small amt blood in bulbs, No peritoneal signs, midline wound vac, no surrounding cellulitis Skin: pallor, No rash Neuro/Psych: alert, disoriented to time, confused RUE PICC c/d/i ICD10 Worksheet Patient Problems: Problems Problem Status Onset Acute exacerbation of congestive heart failure Acute Atrial fibrillation with rapid ventricular response Acute DM type 1 (diabetes mellitus, type 1) Acute Perforated bowel Acute Renal failure Acute Altered mental status Acute Aspiration pneumonia Acute COPD (chronic obstructive pulmonary disease) Acute Lumbosacral radiculopathy at L5 Acute Narcotic dependency, continuous Acute Severe sepsis with septic shock Acute Spinal stenosis, lumbar Acute Tobacco dependence Acute
--- NOTE | 2017-05-12 12:19 | SOAPPROG ---
BRANDY Progress Note Assessment/Plan: Assessment/Plan: 72yo M s/p ex-lap for incarcerated/strangulated RIGH c necrotic cecum, proximal perforated small bowel. S/p takeback washout for RP bleed, now closed - Mental status seems to be back at baseline today. He is ornery and wants his smoothie - pain is controlled, he is tolerating his diet. Still having flatus, no BMs yet - PICC replaced yesterday - KAREN output minimal, still bloody. Hb stable - WBC 16 from 15. Afebrile 04/13/17 05:14 04/16/17 09:19 04/16/17 09:24 04/16/17 09:29 04/17/17 10:27 04/19/17 08:27 04/20/17 09:58 04/21/17 10:31 04/22/17 09:16 04/23/17 13:20 04/24/17 10:50 04/26/17 07:16 04/27/17 13:27 04/30/17 10:49 05/01/17 10:01 05/03/17 08:50 05/07/17 14:39 05/08/17 15:16 05/10/17 13:53 05/11/17 14:33 05/12/17 12:17 Subjective: Jose is ornery today, wants his smoothie STAT Objective: Vital Signs Temp Pulse Resp BP Pulse Ox 37.1 C 87 18 160/73 H 97 05/12/17 10:46 05/12/17 10:46 05/12/17 10:46 05/12/17 10:46 05/12/17 10:46 Laboratory Results 05/12/17 05:50 05/12/17 05:50 05/11/17 05/12/17 05/13/17 05:59 05:59 05:59 Intake Total 1522 400 Output Total 1650 3000 5 Balance -128 -2600 -5 PT 18.6 SEC (12.0-15.0) H 05/07/17 05:30 INR 1.55 (0.83-1.16) H 05/07/17 05:30 ICD10 Worksheet Patient Problems: Problems Problem Status Onset Acute exacerbation of congestive heart failure Acute Atrial fibrillation with rapid ventricular response Acute DM type 1 (diabetes mellitus, type 1) Acute Perforated bowel Acute Renal failure Acute Altered mental status Acute Aspiration pneumonia Acute COPD (chronic obstructive pulmonary disease) Acute Lumbosacral radiculopathy at L5 Acute Narcotic dependency, continuous Acute Severe sepsis with septic shock Acute Spinal stenosis, lumbar Acute Tobacco dependence Acute
--- NOTE | 2017-05-12 15:44 | HOSPPROG ---
Hospitalist Progress Note Assessment/Plan: Assessment: 72-year-old male presents with septic shock in the setting of small bowel perforation and peritonitis with bacteremia and numerous other complications Plan: #Dysphagia: patient is high aspiration risk 2/2 mental status and intubation/ critical illness -repeat BRAND AMBASSADOR PROMOTIONAL MODEL eval today, VFSS tomorrow, pureed at present -cont TPN, can begin decreasing to lower strength as PO calories increasing #Acute Toxic and Metabolic encephalopathy: ongoing poor concentration, interacting better #Splenic hematoma: drain dislodged from area #Small bowel perforation/peritonitis: wound vac in place. IV abx. s/p CT-guided drainage of left subphrenic/perisplenic fluid collections -cont abx through 05/14 -if WBC rising or fevers more persistent, will repeat abd imaging #YOLANDA: Cr improved to 1.1 #Septic shock: POA, resolved #Acute blood loss anemia: s/p 1u PRBC, cont monitor, 7.9 #Right pneumothorax: chest tube placed 05/06. [id number] #Klebsiella/Bacteroides bacteremia: ID following. Cont Flagyl, Levaquin #Acute on chronic hypoxic resp failure: acute moderate BL pleural effusions on CT. Baseline 2.5L, required intubating, 2/2 acute diastolic CHF + pleural effusion + atelectasis -cont BiPAP qHS PRN # Metabolic Acidosis: acute, repeat ABG demonstrating resolution #Acute diastolic CHF exacerbation: 2/2 IVF required for sepsis tx, diuresed while on vent, US w/o DVT #Atelectasis: Acute, 2/2 immobility #Atrial fibrillation: s/p 4 failed cardioversion in ED. h/o MAZE. No AC now with H/H #Retroperitoneal hemorrhage: right inguinal region ([id number]) on CT 04/22/17. Stable on most recent CT #Chronic pain w/ continuous opiate dependency: low dose PO/IV PRN #Tobacco abuse: nicotine patch #Deconditioning: PT/OT. To chair. May benefit from LTAC #Post-op ileus: bowel sounds active, passing flatus, no BM -adv diet -add PRN PO laxatives #DVT ppx: hold SQH, SCDs #Disp: ADD uncertain High level of medical complexity, high risk worsening morbidity/mortality, 2/2 above. Subjective: patient feeling bloated in abdomen Objective: Vital Signs Temp Pulse Resp BP Pulse Ox 37.1 C 87 18 160/73 H 97 05/12/17 10:46 05/12/17 10:46 05/12/17 10:46 05/12/17 10:46 05/12/17 10:46 Laboratory Results 05/12/17 05:50 05/12/17 05:50 05/11/17 05/12/17 05/13/17 05:59 05:59 05:59 Intake Total 1522 400 Output Total 1650 3000 5 Balance -128 -2600 -5 PT 18.6 SEC (12.0-15.0) H 05/07/17 05:30 INR 1.55 (0.83-1.16) H 05/07/17 05:30 - Physical Exam Constitutional: no apparent distress, not in pain, chronically ill appearing, uncomfortable Cardiovascular: systolic murmur (II/ at sternum), edema (1+ bilat LE), No irregularly irregular, No tachycardia Respiratory: reduced air movement (bilat bases), No expiratory wheeze, No inspiratory crackles, No bronchial breath sounds Gastrointestinal: normoactive bowel sounds, tenderness (mild to mod depth palpation), distension (moderate w/ surg drains), No guarding Skin: other (ichthyosis bilat LE w/ blanching erythema, no open ulcerations or induration) Neurologic: AAOx3, sensation intact bilaterally, weakness (motor 4/5 bilat LE), No facial droop Psychiatric: interacting appropriately, not anxious, other (concentration 1/7), No agitated ICD10 Worksheet Patient Problems: Problems Problem Status Onset Renal failure Acute Tobacco dependence Acute Narcotic dependency, continuous Acute Lumbosacral radiculopathy at L5 Acute Spinal stenosis, lumbar Acute DM type 1 (diabetes mellitus, type 1) Acute Aspiration pneumonia Acute COPD (chronic obstructive pulmonary disease) Acute Severe sepsis with septic shock Acute Altered mental status Acute Acute exacerbation of congestive heart failure Acute Atrial fibrillation with rapid ventricular response Acute Perforated bowel Acute
[2017-05-12] MEDS: ONDANSETRON 4 MG/2 ML VIAL IVP PRN (15:59)
[2017-05-12] MEDS: COLLAGENASE 30 GM OINTMENT TP SCH (16:58)
[2017-05-12] MEDS: POLYETHYLENE GLYCOL 3350 17 GM PKT PO PRN (18:05)
[2017-05-12] MEDS: SENNOSIDES/DOCUSATE SODIUM TAB PO SCH (20:47)
[2017-05-12] MEDS: QUEtiapine FUMARATE 25 MG TAB PO SCH (20:47)
[2017-05-12] MEDS: TPN W/ FAMOTIDINE 1 EA BAG IV SCH (20:47)
[2017-05-13] MEDS: D5W 1,000 ML IV SCH ×2 (03:55→17:16)
[2017-05-13 05:49] LABS: PLATELET COUNT 187 10^3/uL (150-400)
--- NOTE | 2017-05-13 09:06 | SOAPPROG ---
SOAP Progress Note Assessment/Plan: Assessment/Plan: 72yo M s/p ex-lap for incarcerated/strangulated RIGH c necrotic cecum, proximal perforated small bowel. S/p takeback washout for RP bleed, now closed - Mentation at baseline, he is ornery it took so long to get his smoothie yesterday - Hb remains stable, KAREN with minimal old blood output. Will change to smaller bulb today, may get better suction with this - Abd soft, has decent bowel sounds. Will get more aggressive with regimen today. Would like to see more bowel function - Also need to work on eating, discussed with both the patient and his nurse 04/13/17 05:14 04/16/17 09:19 04/16/17 09:24 04/16/17 09:29 04/17/17 10:27 04/19/17 08:27 04/20/17 09:58 04/21/17 10:31 04/22/17 09:16 04/23/17 13:20 04/24/17 10:50 04/26/17 07:16 04/27/17 13:27 04/30/17 10:49 05/01/17 10:01 05/03/17 08:50 05/07/17 14:39 05/08/17 15:16 05/10/17 13:53 05/11/17 14:33 05/12/17 12:17 05/13/17 09:04 Subjective: Doing well, sleepy but has no belly pain Objective: Vital Signs Temp Pulse Resp BP Pulse Ox 36.7 C 94 18 156/74 H 95 05/13/17 07:57 05/13/17 07:57 05/13/17 07:57 05/13/17 07:57 05/13/17 07:57 Laboratory Results 05/13/17 05:35 05/12/17 05:50 05/12/17 05/13/17 05/14/17 05:59 05:59 05:59 Intake Total 400 2208 Output Total 3000 1405 Balance -2600 803 PT 18.6 SEC (12.0-15.0) H 05/07/17 05:30 INR 1.55 (0.83-1.16) H 05/07/17 05:30 ICD10 Worksheet Patient Problems: Problems Problem Status Onset Acute exacerbation of congestive heart failure Acute Atrial fibrillation with rapid ventricular response Acute DM type 1 (diabetes mellitus, type 1) Acute Perforated bowel Acute Renal failure Acute Altered mental status Acute Aspiration pneumonia Acute COPD (chronic obstructive pulmonary disease) Acute Lumbosacral radiculopathy at L5 Acute Narcotic dependency, continuous Acute Severe sepsis with septic shock Acute Spinal stenosis, lumbar Acute Tobacco dependence Acute
[2017-05-13] MEDS: CHLORHEXIDINE GLUCONATE 15 ML UDL PO SCH ×2 (09:29→20:26)
[2017-05-13] MEDS: NICOTINE 21 MG/24 HR PATCH TD SCH (09:29)
[2017-05-13] MEDS: SENNOSIDES/DOCUSATE SODIUM TAB PO SCH ×2 (09:30→20:26)
[2017-05-13] MEDS: POLYETHYLENE GLYCOL 3350 17 GM PKT PO PRN (09:30)
--- NOTE | 2017-05-13 09:50 | PCMIDPN ---
Assessment/Plan: Septic shock due to bacteroides bacteremia due to polymicrobial peritonitis associated with necrotic cecum, course complicated RP bleed requiring OR takeback, now closed. Trajectory over the weekend has been quite good. Patient mentation back to baseline, no fever, increased activity and diet! WBC stable today. Recent fever, unclear etiology, resolved without specific intervention. No eosinophils, elevated LFTs or fever to suggest drug reaction. Recommendations: no antibiotic changes. Likely able to change to PO Levoflox/ flagyl in next day or two with markedly improved bowel function and diet advancements. Get EKG today to continue to monitor QTc in light of past Amio use and long half life. Tentatively plan 21 days of current antibiotic regimen. Can we remove ferguson? Medications, Levofloxacin 750mg IV daily # flagyl 500mg IV q8 , #16 Microbiology 05/08/17 12:20 Blood Cx (2) NGTD 04/26/17 15:20 Blood Cx (2) neg 04/24/17 14:50 L Subphrenic fluid collection cx neg; fungal NGTD 04/20/17 12:36 Blood Cx (2) NGTD 04/13/17 06:15 Abdomen /Surgery cx Klebsiella Pneumoniae; Bacteroides Uniformis; Fungal cx NGTD 04/12/17 20:45 Blood Cx (12) Bacteroides Uniformis Subjective: no specific events overnight Objective: Vital Signs Temp Pulse Resp BP Pulse Ox 36.7 C 94 18 156/74 H 95 05/13/17 07:57 05/13/17 07:57 05/13/17 07:57 05/13/17 07:57 05/13/17 07:57 Laboratory Results 05/13/17 05:35 05/12/17 05:50 05/12/17 05/13/17 05/14/17 05:59 05:59 05:59 Intake Total 400 2208 Output Total 3000 1405 Balance -2600 803 General Appearance: alert, chr ill appearing, much more interactive Respiratory: breathing easy, decreased bs in bases, No accessory muscle use Neck: supple Cardiac/Chest: RRR Extremities: minimal pedal edema, hemosiderin staining B LE Abdomen: non-tender, soft, 2 KAREN drain (one large/one small) with small amt blood in bulbs, No peritoneal signs, midline wound vac, no surrounding cellulitis Skin: pallor, No rash ferguson Neuro/Psych: alert, conversational RUE PICC c/d/i ICD10 Worksheet Patient Problems: Problems Problem Status Onset Acute exacerbation of congestive heart failure Acute Atrial fibrillation with rapid ventricular response Acute DM type 1 (diabetes mellitus, type 1) Acute Perforated bowel Acute Renal failure Acute Altered mental status Acute Aspiration pneumonia Acute COPD (chronic obstructive pulmonary disease) Acute Lumbosacral radiculopathy at L5 Acute Narcotic dependency, continuous Acute Severe sepsis with septic shock Acute Spinal stenosis, lumbar Acute Tobacco dependence Acute
[2017-05-13] MEDS: IPRATROPIUM/ALBUTEROL 3 ML DEYVIAL IH PRN (10:08)
[2017-05-13 10:33] LABS: INR 1.55 (0.83-1.16); PROTIME(PATIENT) 18.6 SEC (12.0-15.0)
--- NOTE | 2017-05-13 10:39 | CPEKG ---
Heart Rate: 92 RR Interval: 652 P-R Interval: 160 QRSD Interval: 88 QT Interval: 340 QTC Interval: 421 P [place]: 60 QRS [place]: 38 T Wave [place]: 48 EKG Severity - NORMAL ECG - EKG Impression: SINUS RHYTHM Electronically Signed By: Rosalia Hirsch 14-May-2017 05:40:43
--- NOTE | 2017-05-13 10:39 | CPEKG ---
Heart Rate: 92 RR Interval: 652 P-R Interval: 160 QRSD Interval: 88 QT Interval: 340 QTC Interval: 421 P [place]: 60 QRS [place]: 38 T Wave [place]: 48 EKG Severity - NORMAL ECG - EKG Impression: SINUS RHYTHM Electronically Signed By: Rosalia Hirsch 14-May-2017 05:40:43
[2017-05-13] MEDS: COLLAGENASE 30 GM OINTMENT TP SCH (13:58)
--- NOTE | 2017-05-13 14:31 | ASMTCMCOM ---
CM Note CM Note Notes: 05/13/2017 Case Management Note. Faxed referrals to [facility]errals at request of Rosalia (daughter). Case Management to follow. Date Signed: 05/13/2017 02:30 PM Electronically Signed By:Eunice Rojas RN
--- NOTE | 2017-05-13 17:41 | HOSPPROG ---
Hospitalist Progress Note Assessment/Plan: Assessment: 72-year-old male presents with septic shock in the setting of small bowel perforation and peritonitis with bacteremia and numerous other complications Plan: #Dysphagia: patient is high aspiration risk 2/2 mental status and intubation/ critical illness -increasing PO intake w/ [employer] recs -cont TPN, can begin decreasing to lower strength as PO calories increasing #Acute Toxic and Metabolic encephalopathy: ongoing poor concentration, interacting better #Splenic hematoma: drain dislodged from area #Small bowel perforation/peritonitis: wound vac in place. IV abx. s/p CT-guided drainage of left subphrenic/perisplenic fluid collections -cont abx through 05/14 -if WBC rising or fevers more persistent, will repeat abd imaging, currently afeb x 72 hrs #YOLANDA: Cr improved to 0.8 #Septic shock: POA, resolved #Acute blood loss anemia: s/p 1u PRBC, cont monitor, 7.6 #Right pneumothorax: chest tube placed 05/06. [id number] #Klebsiella/Bacteroides bacteremia: ID following. Cont Flagyl, Levaquin, getting EKG today to eval QT interval #Acute on chronic hypoxic resp failure: acute moderate BL pleural effusions on CT. Baseline 2.5L, required intubating, 2/2 acute diastolic CHF + pleural effusion + atelectasis -cont BiPAP qHS PRN # Metabolic Acidosis: acute, repeat ABG demonstrating resolution #Acute diastolic CHF exacerbation: 2/2 IVF required for sepsis tx, diuresed while on vent, US w/o DVT #Atelectasis: Acute, 2/2 immobility #Atrial fibrillation: s/p 4 failed cardioversion in ED. h/o MAZE. No AC now with H/H #Retroperitoneal hemorrhage: right inguinal region ([id number]) on CT 04/22/17. Stable on most recent CT #Chronic pain w/ continuous opiate dependency: low dose PO/IV PRN #Tobacco abuse: nicotine patch #Deconditioning: PT/OT. To chair. May benefit from LTAC #Post-op ileus: bowel sounds active, passing flatus, no BM -adv diet -add PRN PO laxatives #Hypernatremia. Free water deficit, D5W w/ daily Na check #DVT ppx: hold SQH, SCDs #Disp: ADD uncertain Subjective: pain in abd when up in chair Objective: Vital Signs Temp Pulse Resp BP Pulse Ox 36.6 C 92 17 157/75 H 94 05/13/17 16:00 05/13/17 16:00 05/13/17 16:00 05/13/17 16:00 05/13/17 16:00 Laboratory Results 05/13/17 05:35 05/13/17 09:30 05/12/17 05/13/17 05/14/17 05:59 05:59 05:59 Intake Total 400 2208 270 Output Total 3000 1405 550 Balance -2600 803 -280 PT 18.6 SEC (12.0-15.0) H 05/13/17 09:30 INR 1.55 (0.83-1.16) H 05/13/17 09:30 - Physical Exam Constitutional: no apparent distress, chronically ill appearing, uncomfortable, unkempt Cardiovascular: regular rate and rhythym, systolic murmur (I/ at sternum), edema (trace bilat LE), No irregularly irregular, No tachycardia Respiratory: reduced air movement (bilat bases), No expiratory wheeze, No inspiratory crackles, No bronchial breath sounds, No respiratory distress Gastrointestinal: normoactive bowel sounds, tenderness (mild to mod depth palpation), distension (moderate), other (drains in place), No guarding, No rebound Neurologic: AAOx3, sensation intact bilaterally, No facial droop Psychiatric: not anxious, flat affect, other (concentration 2/7, slowed verbal response), No agitated ICD10 Worksheet Patient Problems: Problems Problem Status Onset Renal failure Acute Tobacco dependence Acute Narcotic dependency, continuous Acute Lumbosacral radiculopathy at L5 Acute Spinal stenosis, lumbar Acute DM type 1 (diabetes mellitus, type 1) Acute Aspiration pneumonia Acute COPD (chronic obstructive pulmonary disease) Acute Severe sepsis with septic shock Acute Altered mental status Acute Acute exacerbation of congestive heart failure Acute Atrial fibrillation with rapid ventricular response Acute Perforated bowel Acute
[2017-05-13] MEDS: TPN W/ FAMOTIDINE 1 EA BAG IV SCH (20:21)
[2017-05-13] MEDS: QUEtiapine FUMARATE 25 MG TAB PO SCH (20:26)
[2017-05-14 03:54] LABS: PLATELET COUNT 200 10^3/uL (150-400)
[2017-05-14 04:03] LABS: INR 1.71 (0.83-1.16); PROTIME(PATIENT) 20.1 SEC (12.0-15.0)
[2017-05-14] MEDS: CHLORHEXIDINE GLUCONATE 15 ML UDL PO SCH (08:04)
[2017-05-14] MEDS: SENNOSIDES/DOCUSATE SODIUM TAB PO SCH ×2 (08:04→20:46)
[2017-05-14] MEDS: NICOTINE 14 MG/24 HR PATCH TD SCH (08:05)
--- NOTE | 2017-05-14 10:01 | WOCRNPDOC ---
WOCRN Advanced Assessment Note - Skin Integrity Problem, Advanced Assess Medial Back Pressure Injury Dressing Type: Allevyn Life, Telfa Dressing Description: Clean/Dry, Intact Exudate Amount: None Integumentary Issue Intervention: Visualized Under Dressing Monty Wound Tissue: Macerated Wound Bed Constitution: Granulation Tissue (40%), Adhered Slough (60%) Wound Edges: Epithelizing (along superior margin), Not Attached (along inferior margin) Site Measurement - Head-to-Toe Length X Width X Depth (cm): 4.7x2.3x0.2 Skin Integrity Problem Comment: Wound is slowly improving. However monty wound skin is very macerated along inferior edge. Staff need to make sure Santyl is only placed over wound and doesnt spread onto intact skin and that skin prep is used each time. Wound care will recheck next week. Medial Abdomen Surgical Wound/Incision Dressing Type: Black Vac Foam (x1), Wound Vac Dressing Description: Clean/Dry, Intact Exudate Amount: None Wound Bed Constitution: Granulation Tissue (100%) Site Measurement - Head-to-Toe Length X Width X Depth (cm): 23.5x3.2x1.3 Skin Integrity Problem Comment: Wound healing well. Cleaned with ns and gauze. Skin prep and drape applied monty wound with one piece of small black foam simplace to wound bed. Suction applied at -125 mm Hg continuous with no leaks. Marlys CASTELLANO in room for care and assisted with dressing change. Patient tolerated proceedure well with no extra pain medicine. May be able to D/C vac in next week or two. Next vac change Wed.
--- NOTE | 2017-05-14 10:07 | SOAPPROG ---
SOAP Progress Note Assessment/Plan: Assessment/Plan: 72yo M s/p ex-lap for incarcerated/strangulated RIGH c necrotic cecum, proximal perforated small bowel. S/p takeback washout for RP bleed, now closed - Mentating appropriately. Appears to be back at baseline - Lungs sound less wet today - Abdomen is soft, still a little distended. Passing flatus but no BM. Took some miralax yesterday - Encouraged PO intake. He needs to increase his protein intake. We talked about supplements today as well. - WBC 14, afebrile. - OOB, Ambulate. If can wean off TPN can discuss dispo options. 04/13/17 05:14 04/16/17 09:19 04/16/17 09:24 04/16/17 09:29 04/17/17 10:27 04/19/17 08:27 04/20/17 09:58 04/21/17 10:31 04/22/17 09:16 04/23/17 13:20 04/24/17 10:50 04/26/17 07:16 04/27/17 13:27 04/30/17 10:49 05/01/17 10:01 05/03/17 08:50 05/07/17 14:39 05/08/17 15:16 05/10/17 13:53 05/11/17 14:33 05/12/17 12:17 05/13/17 09:04 05/14/17 10:05 Subjective: Alert, denies pain. Having flatus. No BM. Objective: Vital Signs Temp Pulse Resp BP Pulse Ox 36.6 C 92 18 152/71 H 95 05/14/17 08:00 05/14/17 08:00 05/14/17 08:00 05/14/17 08:00 05/14/17 08:00 Microbiology 04/13/17 06:15 Fungal Culture - Final Abdomen - Eswab 05/08/17 12:20 Blood Culture - Final Blood 05/08/17 12:20 Blood Culture - Final Blood Laboratory Results 05/14/17 03:40 05/14/17 03:40 05/13/17 05/14/17 05/15/17 05:59 05:59 05:59 Intake Total 2208 3117 Output Total 1405 2353 Balance 803 764 PT 20.1 SEC (12.0-15.0) H 05/14/17 03:40 INR 1.71 (0.83-1.16) H 05/14/17 03:40 ICD10 Worksheet Patient Problems: Problems Problem Status Onset Acute exacerbation of congestive heart failure Acute Atrial fibrillation with rapid ventricular response Acute DM type 1 (diabetes mellitus, type 1) Acute Perforated bowel Acute Renal failure Acute Altered mental status Acute Aspiration pneumonia Acute COPD (chronic obstructive pulmonary disease) Acute Lumbosacral radiculopathy at L5 Acute Narcotic dependency, continuous Acute Severe sepsis with septic shock Acute Spinal stenosis, lumbar Acute Tobacco dependence Acute
[2017-05-14] MEDS ORDERED: K PHOS 10 MMOL in D5W 250 ML IV ONE (12:00)
[2017-05-14] MEDS ORDERED: POLYETHYLENE GLYCOL 3350 17 GM PKT PO ONE (12:54)
[2017-05-14] MEDS ORDERED: BISACODYL 5 MG EC TAB PO PRN (12:54)
[2017-05-14] MEDS ORDERED: BISACODYL 5 MG EC TAB PO ONE (12:54)
[2017-05-14] MEDS: ONDANSETRON 4 MG/2 ML VIAL IVP PRN (12:55)
--- NOTE | 2017-05-14 13:00 | HOSPPROG ---
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 IV abx. s/p CT-guided drainage of left subphrenic/perisplenic fluid collections -d/w Dr. Parish, stop date for Abx in approx 3 days to compete total 21 days s/ p source control #YOLANDA: Cr improved to 0.8 #Septic shock: POA, resolved #Acute blood loss anemia: s/p 1u PRBC, cont monitor, 7.8 #Right pneumothorax: chest tube placed 05/06. [id number] #Klebsiella/Bacteroides bacteremia: ID following. Cont Flagyl, Levaquin, QTc 400s #Acute on chronic hypoxic resp failure: acute moderate BL pleural effusions on CT. Baseline 2.5L, required intubating, 2/2 acute diastolic CHF + pleural effusion + atelectasis -cont BiPAP qHS PRN # Metabolic Acidosis: acute, repeat ABG demonstrating resolution #Acute diastolic CHF exacerbation: 2/2 IVF required for sepsis tx, diuresed while on vent, US w/o DVT #Atelectasis: Acute, 2/2 immobility #Atrial fibrillation: s/p 4 failed cardioversion in ED. h/o MAZE - outpt restart AC once all of these conditions stabilized #Retroperitoneal hemorrhage: right inguinal region ([id number]) on CT 04/22/17. Stable on most recent CT #Chronic pain w/ continuous opiate dependency: given ongoing pain, will restart home morphine SR at 2/3 home dose, also restart lyrica and mirtazpine - gauge effect of restarting home Rx #Tobacco abuse: nicotine patch #Deconditioning: PT/OT. To chair. May benefit from LTAC #Post-op ileus: bowel sounds active, passing flatus, no BM -adv diet -PO bisacodyl+miralax+stool softeners, if no BM by this afternoon, suppository #Hypernatremia. Free water deficit, D5W w/ daily Na check #DVT ppx: restart lovenox ppx #Disp: ADD next 24-48hrs w/ LTAC eval tomorrow High level of medical complexity, high risk worsening morbidity/mortality 2/2 issues outlined above. Subjective: ongoing mild abd pain Objective: Vital Signs Temp Pulse Resp BP Pulse Ox 36.6 C 92 18 152/71 H 95 05/14/17 08:00 05/14/17 08:00 05/14/17 08:00 05/14/17 08:00 05/14/17 08:00 Microbiology 04/13/17 06:15 Fungal Culture - Final Abdomen - Eswab 05/08/17 12:20 Blood Culture - Final Blood 05/08/17 12:20 Blood Culture - Final Blood Laboratory Results 05/14/17 03:40 05/14/17 03:40 05/13/17 05/14/17 05/15/17 05:59 05:59 05:59 Intake Total 2208 3117 Output Total 1405 2353 350 Balance 803 764 -350 PT 20.1 SEC (12.0-15.0) H 05/14/17 03:40 INR 1.71 (0.83-1.16) H 05/14/17 03:40 - Pending Discharge Pending Discharge Within 48 Hours: Yes Pending Discharge Date: 05/16/17 Pending Discharge Time: 11:00 - Physical Exam Constitutional: no apparent distress, not in pain, chronically ill appearing, uncomfortable Cardiovascular: systolic murmur (I/ at sternum), edema (trace bilat LE), No irregularly irregular, No tachycardia Respiratory: reduced air movement (bilat bases), other (insp rhonchi), No expiratory wheeze, No bronchial breath sounds, No respiratory distress Gastrointestinal: normoactive bowel sounds, distension (moderately), other ( drains and wound vac in place), No tenderness, No guarding Skin: other (mild granulation tissue at edges of wound) Neurologic: AAOx3, sensation intact bilaterally, weakness (motor 4/5 bilat LE) Psychiatric: interacting appropriately, not anxious, thought process linear, other (concentration poor, 0/7), No agitated ICD10 Worksheet Patient Problems: Problems Problem Status Onset Renal failure Acute Tobacco dependence Acute Narcotic dependency, continuous Acute Lumbosacral radiculopathy at L5 Acute Spinal stenosis, lumbar Acute DM type 1 (diabetes mellitus, type 1) Acute Aspiration pneumonia Acute COPD (chronic obstructive pulmonary disease) Acute Severe sepsis with septic shock Acute Altered mental status Acute Acute exacerbation of congestive heart failure Acute Atrial fibrillation with rapid ventricular response Acute Perforated bowel Acute
[2017-05-14] MEDS: PREGABALIN 75 MG CAP PO SCH ×2 (14:30→20:46)
[2017-05-14] MEDS: morphINE SR 100 MG TAB PO SCH ×2 (14:30→20:47)
[2017-05-14] MEDS: OLMESARTAN MEDOXOMIL 5 MG TAB PO SCH (14:34)
[2017-05-14] MEDS: COLLAGENASE 30 GM OINTMENT TP SCH (14:36)
[2017-05-14] MEDS: ENOXAPARIN 40 MG/0.4 ML SYR SC SCH (15:26)
[2017-05-14] MEDS: D5W 1,000 ML IV SCH (16:41)
--- NOTE | 2017-05-14 17:57 | PCMIDPN ---
Assessment/Plan: Assessment: Septic shock secondary to peritonitis after incarcerated cecum became necrotic. Doing clinically better. Did reasonably well the swallow study this morning. Plan: 1. Continue Levaquin and Flagyl. 3 more days. 2. Follow-up clinical course. 05/14/17 17:40 Subjective: Patient continues to complain of mild abdominal pain. Unchanged for weeks. No fevers or chills. Objective: Levaquin # 18 Flagyl # 17 Vital Signs Temp Pulse Resp BP Pulse Ox 36.9 C 89 18 145/80 H 97 05/14/17 16:00 05/14/17 16:00 05/14/17 16:00 05/14/17 16:00 05/14/17 16:00 Microbiology 04/13/17 06:15 Fungal Culture - Final Abdomen - Eswab 05/08/17 12:20 Blood Culture - Final Blood 05/08/17 12:20 Blood Culture - Final Blood Laboratory Results 05/14/17 03:40 05/14/17 03:40 05/13/17 05/14/17 05/15/17 05:59 05:59 05:59 Intake Total 2208 3117 1651 Output Total 1405 2353 1075 Balance 803 764 576 - Physical Exam General Appearance: WD/WN, alert, no apparent distress, thin, non-toxic Respiratory: lungs clear, normal breath sounds, No respiratory distress Cardiac/Chest: regular rate, rhythm, No tachycardia Abdomen: soft, No non-tender Skin: normal color, warm/dry, No rash Neuro/Psych: alert, normal mood/affect, oriented x 3 ICD10 Worksheet Patient Problems: Problems Problem Status Onset Acute exacerbation of congestive heart failure Acute Atrial fibrillation with rapid ventricular response Acute DM type 1 (diabetes mellitus, type 1) Acute Perforated bowel Acute Renal failure Acute Altered mental status Acute Aspiration pneumonia Acute COPD (chronic obstructive pulmonary disease) Acute Lumbosacral radiculopathy at L5 Acute Narcotic dependency, continuous Acute Severe sepsis with septic shock Acute Spinal stenosis, lumbar Acute Tobacco dependence Acute
[2017-05-14] MEDS: TPN W/ FAMOTIDINE 1 EA BAG IV SCH (20:46)
[2017-05-14] MEDS: QUEtiapine FUMARATE 25 MG TAB PO SCH (20:47)
[2017-05-14] MEDS: MIRTAZAPINE 15 MG TAB PO SCH (20:47)
[2017-05-15 05:33] LABS: PLATELET COUNT 190 10^3/uL (150-400)
[2017-05-15] MEDS: COLLAGENASE 30 GM OINTMENT TP SCH (09:45)
[2017-05-15] MEDS: ENOXAPARIN 40 MG/0.4 ML SYR SC SCH (10:25)
[2017-05-15] MEDS: NICOTINE 14 MG/24 HR PATCH TD SCH (10:30)
[2017-05-15] MEDS: morphINE SR 100 MG TAB PO SCH ×2 (10:34→21:14)
[2017-05-15] MEDS: PREGABALIN 75 MG CAP PO SCH ×2 (10:35→21:14)
[2017-05-15] MEDS: OLMESARTAN MEDOXOMIL 5 MG TAB PO SCH (10:35)
[2017-05-15] MEDS: SENNOSIDES/DOCUSATE SODIUM TAB PO SCH ×2 (10:54→21:13)
--- NOTE | 2017-05-15 12:43 | SOAPPROG ---
SOAP Progress Note Assessment/Plan: Assessment/Plan: 72yo M s/p ex-lap for incarcerated/strangulated RIGH c necrotic cecum, proximal perforated small bowel. S/p takeback washout for RP bleed, now closed - Looking like a champ - Still very deconditioned but eating more. Still no BM but endorses flatus - LTAC has evaluated. If has some bowel fxn and has adequate PO intake I am ok with going. Not likely to happen to end of this week tho 04/13/17 05:14 04/16/17 09:19 04/16/17 09:24 04/16/17 09:29 04/17/17 10:27 04/19/17 08:27 04/20/17 09:58 04/21/17 10:31 04/22/17 09:16 04/23/17 13:20 04/24/17 10:50 04/26/17 07:16 04/27/17 13:27 04/30/17 10:49 05/01/17 10:01 05/03/17 08:50 05/07/17 14:39 05/08/17 15:16 05/10/17 13:53 05/11/17 14:33 05/12/17 12:17 05/13/17 09:04 05/14/17 10:05 05/15/17 12:42 Objective: Vital Signs Temp Pulse Resp BP Pulse Ox 36.7 C 90 22 H 157/69 H 90 L 05/15/17 08:00 05/15/17 08:00 05/15/17 08:00 05/15/17 08:00 05/15/17 08:00 Microbiology 04/13/17 06:15 Fungal Culture - Final Abdomen - Eswab 05/08/17 12:20 Blood Culture - Final Blood 05/08/17 12:20 Blood Culture - Final Blood Laboratory Results 05/15/17 05:15 05/15/17 05:15 05/14/17 05/15/17 05/16/17 05:59 05:59 05:59 Intake Total 3117 2945 Output Total 5303 2025 Balance 764 920 PT 20.1 SEC (12.0-15.0) H 05/14/17 03:40 INR 1.71 (0.83-1.16) H 05/14/17 03:40 ICD10 Worksheet Patient Problems: Problems Problem Status Onset Acute exacerbation of congestive heart failure Acute Atrial fibrillation with rapid ventricular response Acute DM type 1 (diabetes mellitus, type 1) Acute Perforated bowel Acute Renal failure Acute Altered mental status Acute Aspiration pneumonia Acute COPD (chronic obstructive pulmonary disease) Acute Lumbosacral radiculopathy at L5 Acute Narcotic dependency, continuous Acute Severe sepsis with septic shock Acute Spinal stenosis, lumbar Acute Tobacco dependence Acute
--- NOTE | 2017-05-15 13:23 | PCMIDPN ---
Assessment/Plan: Assessment/Plan: 1. Sepsis secondary to necrotic cecum/peritonitis/abscess: - s/p colon resection with anastomosis. -Polymicrobial bacteremia with staph epi, bacteroides noted -Abd cx with Klebsiella. no new growth from IR drainage of perisplenic collection (04/24/17) - Recent Ct abd noted: fluid collectoin right upper abd, slightly increased. perisplenic hematoma. -Currently on levaquin + flagyl -s/p washout out on 04/16/17. - Large retroperitoneal bleed, s/p surgery on 04/27/17. -Continue with current antibiotics for now. -check crp Meds levaquin 750mg daily- 04/27/17-- flagyl 500mg q8- 04/27/17--- s/p zosyn 4.5gm q6- micafungin 100mg daily Subjective: afebrile. sitting in chair. denies abd pain or sob. left forearm pain. Objective: Vital Signs Temp Pulse Resp BP Pulse Ox 36.7 C 90 22 H 157/69 H 90 L 05/15/17 08:00 05/15/17 08:00 05/15/17 08:00 05/15/17 08:00 05/15/17 08:00 Microbiology 04/13/17 06:15 Fungal Culture - Final Abdomen - Eswab 05/08/17 12:20 Blood Culture - Final Blood 05/08/17 12:20 Blood Culture - Final Blood Laboratory Results 05/15/17 05:15 05/15/17 05:15 05/14/17 05/15/17 05/16/17 05:59 05:59 05:59 Intake Total 3117 2945 Output Total 2353 2025 Balance 764 920 C-Reactive Protein 64.0 mg/L (<10.0) H 05/15/17 05:15 - Physical Exam General Appearance: alert, no apparent distress Respiratory: coarse breath sounds Cardiac/Chest: regular rate, rhythm Extremities: swelling (patchy swelling over the left forearm. with tenderness to palpate) Abdomen: normal bowel sounds, non-tender, soft, other (nara drain with minimal drainage noted. mideline wound vac noted), No distended Skin: erythema (mild over left forearm) ICD10 Worksheet Patient Problems: Problems Problem Status Onset Acute exacerbation of congestive heart failure Acute Atrial fibrillation with rapid ventricular response Acute DM type 1 (diabetes mellitus, type 1) Acute Perforated bowel Acute Renal failure Acute Altered mental status Acute Aspiration pneumonia Acute COPD (chronic obstructive pulmonary disease) Acute Lumbosacral radiculopathy at L5 Acute Narcotic dependency, continuous Acute Severe sepsis with septic shock Acute Spinal stenosis, lumbar Acute Tobacco dependence Acute
--- NOTE | 2017-05-15 19:45 | HOSPPROG ---
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 Avendaño eval daily -per Dr. Avendaño, OK to transition to LTAC once bowels moving, PO intake adequate -whether drains will remain in place at DC is TBD by Dr. Avnedaño -ongoing wound vac mgmt #YOLANDA: Cr improved to 0.8 #Septic shock: POA, resolved #Acute blood loss anemia: s/p 1u PRBC, cont monitor, 7.8 #Right pneumothorax: chest tube placed 05/06, [id number] #Klebsiella/Bacteroides bacteremia: Cont Flagyl, Levaquin, QTc 400s -appreciate ongoing ID consult, Abx for 2 more days to complete total 21 days s/ p source control -getting CRP to eval whether e/o ongoing infxn, WBC marginally downtrending #Acute on chronic hypoxic resp failure: acute moderate BL pleural effusions on CT. Baseline 2.5L, required intubating, 2/2 acute diastolic CHF + pleural effusion + atelectasis -resolved, on supp o2 # Metabolic Acidosis: acute, repeat ABG demonstrated resolution #Acute diastolic CHF exacerbation: 2/2 IVF required for sepsis tx, diuresed while on vent, US w/o DVT #Atelectasis: Acute, 2/2 immobility #Atrial fibrillation: s/p 4 failed cardioversion in ED. h/o MAZE - outpt restart AC once all of these conditions stabilized #Retroperitoneal hemorrhage: right inguinal region ([id number]) on CT 04/22/17, required repeat surg, stable on most recent CT #Chronic pain w/ continuous opiate dependency: given ongoing pain, restarted home morphine SR at 2/3 home dose, also restart lyrica and mirtazpine - gauge effect of restarting home Rx, can uptitrate morphine SR to tid (home dose) if tolerating, can also add oxy IR as breakthrough (home med) if needed #Tobacco abuse: nicotine patch #Deconditioning: PT/OT. To chair. May benefit from LTAC #Hypernatremia. Resolved, off D5W #DVT ppx: restarted lovenox ppx #Disp: ADD next 24-48hrs w/ LTAC eval today, obtaining auth Subjective: patient without BM, passing flatus, worried about length of rehab Objective: Vital Signs Temp Pulse Resp BP Pulse Ox 36.6 C 92 13 155/75 H 97 05/15/17 16:00 05/15/17 16:00 05/15/17 16:00 05/15/17 16:00 05/15/17 16:00 Laboratory Results 05/15/17 05:15 05/15/17 05:15 05/14/17 05/15/17 05/16/17 05:59 05:59 05:59 Intake Total 3117 2945 1284 Output Total 2353 2025 820 Balance 764 920 464 PT 20.1 SEC (12.0-15.0) H 05/14/17 03:40 INR 1.71 (0.83-1.16) H 05/14/17 03:40 - Physical Exam Constitutional: no apparent distress, not in pain, chronically ill appearing, uncomfortable Cardiovascular: systolic murmur (1/6 at sternum), irregularly irregular, edema ( trace bilat LE), No tachycardia Respiratory: reduced air movement (bilat bases), No expiratory wheeze, No inspiratory crackles, No bronchial breath sounds, No respiratory distress Gastrointestinal: normoactive bowel sounds, distension (moderate, less tense than 5 days ago), other (wound vac and drains in place), No tenderness, No guarding Neurologic: AAOx3, sensation intact bilaterally, weakness (motor 4/5 bilat LE) Psychiatric: interacting appropriately, not anxious, flat affect, other (speech slightly garbled but coherent), No agitated ICD10 Worksheet Patient Problems: Problems Problem Status Onset Acute exacerbation of congestive heart failure Acute Atrial fibrillation with rapid ventricular response Acute DM type 1 (diabetes mellitus, type 1) Acute Perforated bowel Acute Renal failure Acute Altered mental status Acute Aspiration pneumonia Acute COPD (chronic obstructive pulmonary disease) Acute Lumbosacral radiculopathy at L5 Acute Narcotic dependency, continuous Acute Severe sepsis with septic shock Acute Spinal stenosis, lumbar Acute Tobacco dependence Acute
[2017-05-15] MEDS: QUEtiapine FUMARATE 25 MG TAB PO SCH (21:00)
[2017-05-15] MEDS: MIRTAZAPINE 15 MG TAB PO SCH (21:13)
[2017-05-16 04:46] LABS: PLATELET COUNT 197 10^3/uL (150-400)
[2017-05-16 04:55] LABS: INR 1.65 (0.83-1.16); PROTIME(PATIENT) 19.6 SEC (12.0-15.0)
[2017-05-16] MEDS: ACETAMINOPHEN 325 MG TAB PO PRN ×2 (06:20→21:05)
[2017-05-16] MEDS: ENOXAPARIN 40 MG/0.4 ML SYR SC SCH (09:21)
[2017-05-16] MEDS: NICOTINE 14 MG/24 HR PATCH TD SCH (09:22)
[2017-05-16] MEDS: COLLAGENASE 30 GM OINTMENT TP SCH (09:23)
[2017-05-16] MEDS: SENNOSIDES/DOCUSATE SODIUM TAB PO SCH ×2 (09:28→20:11)
[2017-05-16] MEDS: morphINE SR 100 MG TAB PO SCH ×2 (09:45→20:10)
[2017-05-16] MEDS: PREGABALIN 75 MG CAP PO SCH ×2 (09:45→20:11)
[2017-05-16] MEDS: OLMESARTAN MEDOXOMIL 5 MG TAB PO SCH (09:45)
--- NOTE | 2017-05-16 12:45 | PCMIDPN ---
Assessment/Plan: Septic shock due to bacteroides bacteremia due to polymicrobial peritonitis associated with necrotic cecum, course complicated RP bleed requiring OR takeback, now closed. unclear if residual collections on CT abd/pelvis reflect residual infection vs blood/hematoma. --dc antibiotics after dose tomorrow, okay with surgery. MAR adjusted Medications, Abx total #5 weeks Levofloxacin 750mg IV daily #20/21 flagyl 500mg IV q8 , #19 Microbiology 05/08/17 12:20 Blood Cx (2) NGTD 04/26/17 15:20 Blood Cx (2) neg 04/24/17 14:50 L Subphrenic fluid collection cx neg; fungal NGTD 04/20/17 12:36 Blood Cx (2) NGTD 04/13/17 06:15 Abdomen /Surgery cx Klebsiella Pneumoniae; Bacteroides Uniformis; Fungal cx NGTD 04/12/17 20:45 Blood Cx (12) Bacteroides Uniformis Subjective: patient feeling well, about to eat lunch Objective: Vital Signs Temp Pulse Resp BP Pulse Ox 38.2 C 89 24 H 109/52 L 93 05/16/17 08:00 05/16/17 08:00 05/16/17 08:00 05/16/17 09:45 05/16/17 08:00 Laboratory Results 05/16/17 04:30 05/16/17 04:30 05/15/17 05/16/17 05/17/17 05:59 05:59 05:59 Intake Total 2945 1284 Output Total 2025 820 Balance 920 464 C-Reactive Protein 64.0 mg/L (<10.0) H 05/15/17 05:15 General Appearance: alert, chr ill appearance, continues to appear more vigorous Respiratory: breathing easy, decreased bs in bases, No accessory muscle use Neck: supple Cardiac/Chest: RRR Extremities: minimal pedal edema, hemosiderin staining B LE Abdomen: non-tender, soft,No peritoneal signs, midline wound vac, no surrounding cellulitis Skin: pallor, No rash ferguson Neuro/Psych: alert, conversational RUE PICC c/d/i ICD10 Worksheet Patient Problems: Problems Problem Status Onset Acute exacerbation of congestive heart failure Acute Atrial fibrillation with rapid ventricular response Acute DM type 1 (diabetes mellitus, type 1) Acute Perforated bowel Acute Renal failure Acute Altered mental status Acute Aspiration pneumonia Acute COPD (chronic obstructive pulmonary disease) Acute Lumbosacral radiculopathy at L5 Acute Narcotic dependency, continuous Acute Severe sepsis with septic shock Acute Spinal stenosis, lumbar Acute Tobacco dependence Acute
--- NOTE | 2017-05-16 13:04 | SOAPPROG ---
SOAP Progress Note Assessment/Plan: Assessment/Plan: 72yo M s/p ex-lap for incarcerated/strangulated RIGH c necrotic cecum, proximal perforated small bowel. S/p takeback washout for RP bleed, now closed - Looking like a champ! - Still very deconditioned but eating more. Still working on bowel function but appetite has improved. His new favorite is pudding - JPs minimal and old-blood appearing - Abd soft, VAC site looks good. Will likely remove VAC before he dcs to LTAC which may poss be later this week pending better bowel function 04/13/17 05:14 04/16/17 09:19 04/16/17 09:24 04/16/17 09:29 04/17/17 10:27 04/19/17 08:27 04/20/17 09:58 04/21/17 10:31 04/22/17 09:16 04/23/17 13:20 04/24/17 10:50 04/26/17 07:16 04/27/17 13:27 04/30/17 10:49 05/01/17 10:01 05/03/17 08:50 05/07/17 14:39 05/08/17 15:16 05/10/17 13:53 05/11/17 14:33 05/12/17 12:17 05/13/17 09:04 05/14/17 10:05 05/15/17 12:42 05/16/17 13:03 Subjective: Continues to make progress. Objective: Vital Signs Temp Pulse Resp BP Pulse Ox 38.2 C 89 24 H 109/52 L 93 05/16/17 08:00 05/16/17 08:00 05/16/17 08:00 05/16/17 09:45 05/16/17 08:00 Laboratory Results 05/16/17 04:30 05/16/17 04:30 05/15/17 05/16/17 05/17/17 05:59 05:59 05:59 Intake Total 2945 1284 Output Total 2025 820 Balance 920 464 PT 19.6 SEC (12.0-15.0) H 05/16/17 04:30 INR 1.65 (0.83-1.16) H 05/16/17 04:30 ICD10 Worksheet Patient Problems: Problems Problem Status Onset Acute exacerbation of congestive heart failure Acute Atrial fibrillation with rapid ventricular response Acute DM type 1 (diabetes mellitus, type 1) Acute Perforated bowel Acute Renal failure Acute Altered mental status Acute Aspiration pneumonia Acute COPD (chronic obstructive pulmonary disease) Acute Lumbosacral radiculopathy at L5 Acute Narcotic dependency, continuous Acute Severe sepsis with septic shock Acute Spinal stenosis, lumbar Acute Tobacco dependence Acute
--- NOTE | 2017-05-16 14:46 | WOCRNPDOC ---
WOCRN Advanced Assessment Note - Skin Integrity Problem, Advanced Assess Medial Abdomen Surgical Wound/Incision Dressing Type: Black Vac Foam (x1), Wound Vac Dressing Description: Clean/Dry, Intact Exudate Amount: Scant Exudate Characteristic(s): Serosanguinous Integumentary Issue Intervention: Dressing Changed Wound Bed Constitution: Granulation Tissue (100%) Wound Edges: Epithelizing, Attached Skin Integrity Problem Comment: Wound healing well. Dr. Avendaño and RAFAEL Rojas assessed wound. Wound cleaned with ns and gauze. Skin prep and drape applied monty wound. One piece of black foam to wound bed and suction restarted at - 125 mm Hg continuous suction without leaks. Mich CASTELLANO performed dressing change under supervision of wound RN. Marlys CARTER and Elizabeth MAHER in room for care. Next vac change friday 05/18.
--- NOTE | 2017-05-16 16:35 | HOSPPROG ---
Hospitalist Progress Note Assessment/Plan: 72-year-old male presents with septic shock in the setting of small bowel perforation and peritonitis with bacteremia and numerous other complications, most recent dysphagia and ileus #Dysphagia: significantly improved over past couple days -Off TPN -tolerating PO #Post-op ileus: ?resoved. Still with decreased Bowel sounds but had BM on night of 05/15 -Advancing diet #Acute Toxic and Metabolic encephalopathy: ongoing poor concentration, interacting at baseline, resolved #Splenic hematoma: drain dislodged from area #Small bowel perforation/peritonitis: wound vac in place, Dr. Avendaño eval daily -per Dr. Avendaño, OK to transition to LTAC once bowels moving, PO intake adequate -whether drains will remain in place at DC is TBD by Dr. Avendaño. -ongoing wound vac mgmt #YOLANDA: Cr improved to 0.8 #Septic shock: POA, resolved #Acute blood loss anemia: s/p 1u PRBC, cont monitor, 7.8 #Right pneumothorax: chest tube placed 05/06, [id number] #Klebsiella/Bacteroides bacteremia: Abx to stop today (05/16) Flagyl, Levaquin, QTc 400s -ID is following #Acute on chronic hypoxic resp failure: acute moderate BL pleural effusions on CT. Baseline 2.5L, required intubating, 2/2 acute diastolic CHF + pleural effusion + atelectasis -resolved, on supp o2 # Metabolic Acidosis: acute, repeat ABG demonstrated resolution #Acute diastolic CHF exacerbation: 2/2 IVF required for sepsis tx, diuresed while on vent, US w/o DVT #Atelectasis: Acute, 2/2 immobility #Atrial fibrillation: s/p 4 failed cardioversion in ED. h/o MAZE - outpt restart AC once all of these conditions stabilized #Retroperitoneal hemorrhage: right inguinal region ([id number]) on CT 04/22/17, required repeat surg, stable on most recent CT #Chronic pain w/ continuous opiate dependency: given ongoing pain, restarted home morphine SR at 2/3 home dose, also restart lyrica and mirtazpine - gauge effect of restarting home Rx, can uptitrate morphine SR to tid (home dose) if tolerating, can also add oxy IR as breakthrough (home med) if needed #Tobacco abuse: nicotine patch #Deconditioning: PT/OT. To chair. May benefit from LTAC #Hypernatremia. Resolved, off D5W #Depressin, ? Hx of Bipolar. On remeron. The pt's PCP is requesting a mental health evaluation and I will order one. #DVT ppx: restarted lovenox ppx #Disp: will likely discharge soon possibly tomorrow given that he has had a bowel movement, PO is increasing, and he is off abx. LTAC acceptance is being finalized. Subjective: feel slightly depressed. His PCP is at bedside and is asking for a mental health evaluation. He reports a large BM yesterday. Objective: Vital Signs Temp Pulse Resp BP Pulse Ox 36.8 C 91 23 H 108/52 L 92 05/16/17 12:00 05/16/17 12:00 05/16/17 12:00 05/16/17 12:00 05/16/17 12:00 Laboratory Results 05/16/17 04:30 05/16/17 04:30 05/15/17 05/16/17 05/17/17 05:59 05:59 05:59 Intake Total 2945 1284 Output Total 2025 820 Balance 920 464 PT 19.6 SEC (12.0-15.0) H 05/16/17 04:30 INR 1.65 (0.83-1.16) H 05/16/17 04:30 - Physical Exam Constitutional: no apparent distress, appears nourished Eyes: PERRL, EOMI Ears, Nose, Mouth, Throat: moist mucous membranes, hearing normal Cardiovascular: regular rate and rhythym, edema (trace) Respiratory: no respiratory distress, no rales or rhonchi, clear to auscultation Gastrointestinal: normoactive bowel sounds, soft, non-tender abdomen Skin: warm Neurologic: AAOx3 Psychiatric: interacting appropriately, not encephalopathic, flat affect ICD10 Worksheet Patient Problems: Problems Problem Status Onset Acute exacerbation of congestive heart failure Acute Atrial fibrillation with rapid ventricular response Acute DM type 1 (diabetes mellitus, type 1) Acute Perforated bowel Acute Renal failure Acute Altered mental status Acute Aspiration pneumonia Acute COPD (chronic obstructive pulmonary disease) Acute Lumbosacral radiculopathy at L5 Acute Narcotic dependency, continuous Acute Severe sepsis with septic shock Acute Spinal stenosis, lumbar Acute Tobacco dependence Acute
[2017-05-16] MEDS: MIRTAZAPINE 15 MG TAB PO SCH (20:10)
[2017-05-16] MEDS: QUEtiapine FUMARATE 25 MG TAB PO SCH (20:12)
[2017-05-17 06:28] LABS: PLATELET COUNT 211 10^3/uL (150-400)
[2017-05-17] MEDS: NICOTINE 14 MG/24 HR PATCH TD SCH (08:57)
[2017-05-17] MEDS: morphINE SR 100 MG TAB PO SCH ×2 (08:57→21:33)
[2017-05-17] MEDS: OLMESARTAN MEDOXOMIL 5 MG TAB PO SCH (08:57)
[2017-05-17] MEDS: ENOXAPARIN 40 MG/0.4 ML SYR SC SCH (08:57)
[2017-05-17] MEDS: PREGABALIN 75 MG CAP PO SCH ×2 (08:57→21:36)
[2017-05-17] MEDS: SENNOSIDES/DOCUSATE SODIUM TAB PO SCH ×2 (08:57→21:36)
[2017-05-17] MEDS: COLLAGENASE 30 GM OINTMENT TP SCH (15:16)
[2017-05-17] MEDS: ACETAMINOPHEN 325 MG TAB PO PRN (15:20)
--- NOTE | 2017-05-17 16:01 | ASMTCMCOM ---
CM Note CM Note Notes: Carol from [facility] called and would like hospitalist do a doc to doc w/ their provider. CM passed on this info to attending physician, Dr. Chaves. Anticipates that pt will d/c tomorrow. CM spoke w/ Rosalia, daughter and provided her updates. CM sent updates to [facility]. CM to follow. Date Signed: 05/17/2017 04:00 PM Electronically Signed By:LISS Strauss
--- NOTE | 2017-05-17 16:01 | ASMTCMCOM ---
CM Note CM Note Notes: Carol from [facility] called and would like hospitalist do a doc to doc w/ their provider. CM passed on this info to attending physician, Dr. Chaves. Anticipates that pt will d/c tomorrow. CM spoke w/ Rosalia, daughter and provided her updates. CM sent updates to [facility]. CM to follow. Date Signed: 05/17/2017 04:00 PM Electronically Signed By:LISS Strauss
--- NOTE | 2017-05-17 16:01 | ASMTCMCOM ---
CM Note CM Note Notes: [place] [facility] [place] and would like hospitalist do a doc to doc w/ their provider. CM passed on this info to attending physician, Dr. Chaves. Anticipates that pt will d/c tomorrow. CM spoke w/ Rosalia, daughter and provided her updates. CM sent updates to [facility] CM to follow. Date Signed: 05/17/2017 04:00 PM Electronically Signed By:LISS Strauss
--- NOTE | 2017-05-17 16:46 | HOSPPROG ---
Hospitalist Progress Note Assessment/Plan: 72-year-old male presents with septic shock in the setting of small bowel perforation and peritonitis with bacteremia and numerous other complications, most recent dysphagia and ileus. He is being set up for transfer to LTAC tomorrow. #Dysphagia: significantly improved over past couple days -Off TPN -tolerating PO #Post-op ileus: ?resoved. Still with decreased Bowel sounds but had BM on night of 05/15 -Advancing diet #Acute Toxic and Metabolic encephalopathy: ongoing poor concentration, interacting at baseline, resolved #Splenic hematoma: drain dislodged from area #Small bowel perforation/peritonitis: wound vac in place, Dr. Avendaño eval daily -per Dr. Avendaño, OK to transition to LTAC once bowels moving, PO intake adequate -whether drains will remain in place at DC is TBD by Dr. Avendaño. -ongoing wound vac mgmt #YOLANDA: Cr improved to 0.8 #Septic shock: POA, resolved #Acute blood loss anemia: s/p 1u PRBC, cont monitor, 7.8 #Right pneumothorax: chest tube placed 05/06, [id number] #Klebsiella/Bacteroides bacteremia: Abx to stop today (05/16) Flagyl, Levaquin, QTc 400s -ID is following #Acute on chronic hypoxic resp failure: acute moderate BL pleural effusions on CT. Baseline 2.5L, required intubating, 2/2 acute diastolic CHF + pleural effusion + atelectasis -resolved, on supp o2 # Metabolic Acidosis: acute, repeat ABG demonstrated resolution #Acute diastolic CHF exacerbation: 2/2 IVF required for sepsis tx, diuresed while on vent, US w/o DVT #Atelectasis: Acute, 2/2 immobility #Atrial fibrillation: s/p 4 failed cardioversion in ED. h/o MAZE - outpt restart AC once all of these conditions stabilized #Retroperitoneal hemorrhage: right inguinal region ([id number]) on CT 04/22/17, required repeat surg, stable on most recent CT #Chronic pain w/ continuous opiate dependency: given ongoing pain, restarted home morphine SR at 2/3 home dose, also restart lyrica and mirtazpine - gauge effect of restarting home Rx, can uptitrate morphine SR to tid (home dose) if tolerating, can also add oxy IR as breakthrough (home med) if needed #Tobacco abuse: nicotine patch #Deconditioning: PT/OT. To chair. May benefit from LTAC #Hypernatremia. Resolved, off D5W #Depressin, ? Hx of Bipolar. On remeron. The pt's PCP is requesting a mental health evaluation and I will order one. #DVT ppx: restarted lovenox ppx #Disp: D/C to LTAC tomorrow Plan: -Wound: will need to determine ongoing wound plan. There has been mention of d/ c wound vac -Hgb has been trending down, if further trend, will consider transfusion tomorrow -Currently not on any AC or Aspirin, continue to hold given decrease in Hgb and recent retroperitoneal hemorrhage. He is not actively in AFib -Due to borderline low BP, Benicar will be discontinued. -Cont with current diet, including 1.5 L restriction -Not currently on abx. Subjective: Feels about the same. LTAC transfer is being arranged. Likely late today or tomorrow. Objective: Vital Signs Temp Pulse Resp BP Pulse Ox 36.9 C 106 H 18 102/68 93 05/17/17 11:29 05/17/17 11:47 05/17/17 11:29 05/17/17 11:47 05/17/17 11:29 Laboratory Results 05/17/17 06:15 05/17/17 06:15 05/16/17 05/17/17 05/18/17 05:59 05:59 05:59 Intake Total 1284 970 Output Total 820 0 Balance 464 0 970 PT 19.6 SEC (12.0-15.0) H 05/16/17 04:30 INR 1.65 (0.83-1.16) H 05/16/17 04:30 - Physical Exam Constitutional: chronically ill appearing Eyes: PERRL, EOMI Ears, Nose, Mouth, Throat: moist mucous membranes Cardiovascular: regular rate and rhythym Respiratory: reduced air movement, No clear to auscultation Gastrointestinal: normoactive bowel sounds Skin: warm Neurologic: AAOx3 Psychiatric: interacting appropriately, not anxious, not encephalopathic ICD10 Worksheet Patient Problems: Problems Problem Status Onset Acute exacerbation of congestive heart failure Acute Atrial fibrillation with rapid ventricular response Acute DM type 1 (diabetes mellitus, type 1) Acute Perforated bowel Acute Renal failure Acute Altered mental status Acute Aspiration pneumonia Acute COPD (chronic obstructive pulmonary disease) Acute Lumbosacral radiculopathy at L5 Acute Narcotic dependency, continuous Acute Severe sepsis with septic shock Acute Spinal stenosis, lumbar Acute Tobacco dependence Acute
--- NOTE | 2017-05-17 17:08 | SOAPPROG ---
SOAP Progress Note Assessment/Plan: Assessment/Plan: 72yo M s/p ex-lap for incarcerated/strangulated RIGH c necrotic cecum, proximal perforated small bowel. S/p takeback washout for RP bleed, now closed - Clinically inprmving. Last dose of abx was this AM - Abd soft, tolerating diet with the best appetite he has had since admission - Hacing bowel function - Likely to rehab versus LTAC soon 04/13/17 05:14 04/16/17 09:19 04/16/17 09:24 04/16/17 09:29 04/17/17 10:27 04/19/17 08:27 04/20/17 09:58 04/21/17 10:31 04/22/17 09:16 04/23/17 13:20 04/24/17 10:50 04/26/17 07:16 04/27/17 13:27 04/30/17 10:49 05/01/17 10:01 05/03/17 08:50 05/07/17 14:39 05/08/17 15:16 05/10/17 13:53 05/11/17 14:33 05/12/17 12:17 05/13/17 09:04 05/14/17 10:05 05/15/17 12:42 05/16/17 13:03 05/17/17 17:07 Subjective: feels well, cracking jokes Objective: Vital Signs Temp Pulse Resp BP Pulse Ox 36.9 C 106 H 18 102/68 93 05/17/17 11:29 05/17/17 11:47 05/17/17 11:29 05/17/17 11:47 05/17/17 11:29 Laboratory Results 05/17/17 06:15 05/17/17 06:15 05/16/17 05/17/17 05/18/17 05:59 05:59 05:59 Intake Total 1284 970 Output Total 820 0 Balance 464 0 970 PT 19.6 SEC (12.0-15.0) H 05/16/17 04:30 INR 1.65 (0.83-1.16) H 05/16/17 04:30 ICD10 Worksheet Patient Problems: Problems Problem Status Onset Acute exacerbation of congestive heart failure Acute Atrial fibrillation with rapid ventricular response Acute DM type 1 (diabetes mellitus, type 1) Acute Perforated bowel Acute Renal failure Acute Altered mental status Acute Aspiration pneumonia Acute COPD (chronic obstructive pulmonary disease) Acute Lumbosacral radiculopathy at L5 Acute Narcotic dependency, continuous Acute Severe sepsis with septic shock Acute Spinal stenosis, lumbar Acute Tobacco dependence Acute
[2017-05-17] MEDS: MIRTAZAPINE 15 MG TAB PO SCH (21:36)
[2017-05-17] MEDS: QUEtiapine FUMARATE 25 MG TAB PO SCH (21:37)
[2017-05-18 05:09] LABS: PLATELET COUNT 250 10^3/uL (150-400)
[2017-05-18] MEDS: NICOTINE 14 MG/24 HR PATCH TD SCH (08:01)
[2017-05-18] MEDS: SENNOSIDES/DOCUSATE SODIUM TAB PO SCH ×2 (08:01→13:09)
[2017-05-18] MEDS: ENOXAPARIN 40 MG/0.4 ML SYR SC SCH ×2 (08:02→13:05)
[2017-05-18] MEDS: PREGABALIN 75 MG CAP PO SCH (08:02)
[2017-05-18] MEDS: COLLAGENASE 30 GM OINTMENT TP SCH (08:04)
--- NOTE | 2017-05-18 09:28 | WOCRNPDOC ---
WOCRN Advanced Assessment Note - Skin Integrity Problem, Advanced Assess Medial Abdomen Surgical Wound/Incision Dressing Type: Black Vac Foam, Wound Vac Dressing Description: Intact Exudate Amount: Scant Exudate Color: Reddish/Yellow Exudate Characteristic(s): Serosanguinous Integumentary Issue Intervention: Dressing Changed Nataly Wound Tissue: Intact Nataly Wound Swelling: None Wound Bed Color: Red Wound Bed Constitution: Granulation Tissue (100%) Wound Edges: Epithelizing Site Odor: None Site Measurement - Head-to-Toe Length X Width X Depth (cm): 21.5cmx3.2cmx0.4cm Skin Integrity Problem Comment: Wound continues to look good, 100% granulation tissue throughout and epithelialization evident along the margins. No necrosis noted. Periwound skin is intact w/ no associated sweling or erythema. Site cleansed w/ NS and gauze, and periwound skin prepped and draped. One piece of black Granulofaom dressing cut and placed into wound bed, and suction resumed at -125mmHg w/ no leaks. Depth of wound is fairly shallow, and I would anticpate that the wound vac could be dc'd within the week. At that point he could be transitioned to a foam dressing, and the wound could heal by secondary intention. Patient could possible DC today; wound care dc orders updated. Will check back on Monday 05/21 to see if he remains inpatient. Report given to refrigerated company driver Chris.
[2017-05-18] MEDS ORDERED: IOPAMIDOL (ISOVUE-300) 100 ML BTL ONE ×2 (09:50→15:18)
--- NOTE | 2017-05-18 09:51 | ASMTCMCOM ---
CM Note CM Note Notes: CM spoke w/ Dr. Chaves and GUNNAR Argueta regarding d/c POC. Pt will most likely discharge on Sunday, at the earliest. Pts H&H and BP is dropping. Pt is scheduled to have an abdominal and chest x ray today. CM called Rosalia, daughter and relayed this information. CM sent [facility] updates through all scripts and informed them pt is not discharging today. CM to follow. Date Signed: 05/18/2017 09:51 AM Electronically Signed By:LISS Strauss
--- NOTE | 2017-05-18 09:51 | ASMTCMCOM ---
CM Note CM Note Notes: CM spoke w/ Dr. Chaves and GUNNAR Argueta regarding d/c POC. Pt will most likely discharge on Sunday, at the earliest. Pts H&H and BP is dropping. Pt is scheduled to have an abdominal and chest x ray today. CM called Rosalia, daughter and relayed this information. CM sent [facility] updates through all scripts and informed them pt is not discharging today. CM to follow. Date Signed: 05/18/2017 09:51 AM Electronically Signed By:LISS Strauss
--- NOTE | 2017-05-18 10:13 | PCMIDPN ---
Assessment/Plan: 1. History of septic shock secondary to peritonitis. Patient with history of incarcerated/strangulated right inguinal hernia with perforated small bowel and necrotic cecum status post operative evacuation of large retroperitoneal hematoma on 04/27 with severe coagulopathy: From what I understand, the patient was supposed to go to the LTAC today, but this morning is very different compared to the last 2 days. He is somnolent and hypotensive. For now, pending further evaluation will add back antibiotics in the form of Meropenem 1 g IV q.8 hours. He is also at high risk for fungemia and has severe oropharyngeal candidiasis; will therefore start Micafungin 100 mg IV daily as well. Blood cultures have been ordered. Agree with stat repeat abdominal CT. Neurologic changes associated with metronidazole seems less likely; suspect something else is going on. Opiates have been discontinued. (The patient was on high-dose morphine) Subjective: Antibiotic discontinued yesterday. He received his last dose of levofloxacin yesterday morning, and his last dose of metronidazole at 6:00 a.m. yesterday. The patient is much different this morning her nursing staff. He is somnolent and hypotensive. No fever. Spoke to the hospitalist as well who feels that the patient's clinical status has deteriorated over the past 48 hours for unclear reasons. Objective: Status post levofloxacin and metronidazole for approximately 21 days after his most recent surgery On April 27 T-max 37.1 (patient has had low-grade fevers over the past 72 hours) Vital Signs Temp Pulse Resp BP Pulse Ox 37.0 C 98 14 88/48 L 96 05/18/17 07:34 05/18/17 07:34 05/18/17 07:34 05/18/17 09:13 05/18/17 09:13 Laboratory Results 05/18/17 05:00 05/17/17 05/18/17 05/19/17 05:59 05:59 05:59 Intake Total 1320 Output Total 0 Balance 0 1320 C-Reactive Protein 64.0 mg/L (<10.0) H 05/15/17 05:15 - Physical Exam General Appearance: other (Somnolent Opens eyes to voice. Confused--does not know the year, but was able to tell me the month. Denies pain.) EENT: thrush Respiratory: other (Decreased breath sounds bilateral lung bases.) Abdomen: other (VAC in place. Mild TTP throughout. KAREN drain with what appears to be old blood) Skin: other (PICC line right upper extremity looks fine. Lower extremities with chronic venous stasis changes pretibial areas.), No rash Neuro/Psych: confused, other (moves all 4 extremities.) ICD10 Worksheet Patient Problems: Problems Problem Status Onset Acute exacerbation of congestive heart failure Acute Atrial fibrillation with rapid ventricular response Acute DM type 1 (diabetes mellitus, type 1) Acute Perforated bowel Acute Renal failure Acute Altered mental status Acute Aspiration pneumonia Acute COPD (chronic obstructive pulmonary disease) Acute Lumbosacral radiculopathy at L5 Acute Narcotic dependency, continuous Acute Severe sepsis with septic shock Acute Spinal stenosis, lumbar Acute Tobacco dependence Acute
--- NOTE | 2017-05-18 10:23 | HOSPPROG ---
Hospitalist Progress Note Assessment/Plan: 72-year-old male presents with septic shock in the setting of small bowel perforation and peritonitis with bacteremia and numerous other complications, most recent dysphagia and ileus. Overnight he has developed Hypotension and his Hgb has dropped. He is encephalopathic. He remains afebrile. His WBC count is still elevated, but stable. Abx were stopped 2 days ago. I spoke with both Dr. Avendaño and Dr. Jolley. Plan: -Stat CT Abd/Pelvis to eval splenic hematoma -Stat PRBC transfusion -IVF, is responding appropriately -Hold Morphine. For now I will hold off on Narcan, but if increased sedation or hypoxia, will give. Nurse has been updated with this plan -Stat PC and Lactic acid -For now will hold on abx pending PC, Lactic Acid, and CT Abd/Pelvis -NPO -NO AC or Aspirin, he is not in Afib -Hold Benicar Total Critical care time is 45 minutes. #Dysphagia: significantly improved over past couple days -Off TPN -tolerating PO, NPO at this time given acute events #Post-op ileus: Resolved #Acute Toxic and Metabolic encephalopathy: ongoing poor concentration, interacting at baseline, resolved #Splenic hematoma: drain dislodged from area. CT abd/pelvis pending #Small bowel perforation/peritonitis: wound vac in place, Dr. Avendaño eval daily -per Dr. Avendaño, OK to transition to LTAC once bowels moving, PO intake adequate -whether drains will remain in place at DC is TBD by Dr. Avendaño. -ongoing wound vac mgmt #YOLANDA: Cr improved to 0.8 #Septic shock: POA, resolved #Acute blood loss anemia: transfusing one unit now #Right pneumothorax: chest tube placed 05/06, [id number] #Klebsiella/Bacteroides bacteremia: Abx to stop today (05/16) Flagyl, Levaquin, QTc 400s -ID is following #Acute on chronic hypoxic resp failure: acute moderate BL pleural effusions on CT. Baseline 2.5L, required intubating, 2/2 acute diastolic CHF + pleural effusion + atelectasis -resolved, on supp o2 # Metabolic Acidosis: acute, repeat ABG demonstrated resolution #Acute diastolic CHF exacerbation: 2/2 IVF required for sepsis tx, diuresed while on vent, US w/o DVT #Atelectasis: Acute, 2/2 immobility #Atrial fibrillation: s/p 4 failed cardioversion in ED. h/o MAZE - outpt restart AC once all of these conditions stabilized #Retroperitoneal hemorrhage: right inguinal region ([id number]) on CT 04/22/17, required repeat surg, stable on most recent CT #Chronic pain w/ continuous opiate dependency: given ongoing pain, restarted home morphine SR at 2/3 home dose, also restart lyrica and mirtazpine - gauge effect of restarting home Rx, can uptitrate morphine SR to tid (home dose) if tolerating, can also add oxy IR as breakthrough (home med) if needed #Tobacco abuse: nicotine patch #Deconditioning: PT/OT. To chair. May benefit from LTAC #Hypernatremia. Resolved, off D5W #Depression, ? Hx of Bipolar. On remeron. The pt's PCP is requesting a mental health evaluation and I will order one. #DVT ppx: restarted lovenox ppx #Disp: keep inpatient, not ready for discharge Subjective: Decreased BP. Confused. Pinpoint pupils. Follows commands. IVF started Objective: Vital Signs Temp Pulse Resp BP Pulse Ox 37.0 C 98 14 88/48 L 96 05/18/17 07:34 05/18/17 07:34 05/18/17 07:34 05/18/17 09:13 05/18/17 09:13 Laboratory Results 05/18/17 05:00 05/17/17 05/18/17 05/19/17 05:59 05:59 05:59 Intake Total 1320 Output Total 0 Balance 0 1320 PT 19.6 SEC (12.0-15.0) H 05/16/17 04:30 INR 1.65 (0.83-1.16) H 05/16/17 04:30 - Physical Exam Constitutional: chronically ill appearing Eyes: PERRL, EOMI Ears, Nose, Mouth, Throat: hearing normal, other (pin point pupils) Cardiovascular: regular rate and rhythym, edema (trace) Respiratory: rhonchi Gastrointestinal: normoactive bowel sounds, other (not distended, no guarding, some output from LUQ drain) Skin: warm Neurologic: No AAOx3 Psychiatric: encephalopathic, No interacting appropriately ICD10 Worksheet Patient Problems: Problems Problem Status Onset Acute exacerbation of congestive heart failure Acute Atrial fibrillation with rapid ventricular response Acute DM type 1 (diabetes mellitus, type 1) Acute Perforated bowel Acute Renal failure Acute Altered mental status Acute Aspiration pneumonia Acute COPD (chronic obstructive pulmonary disease) Acute Lumbosacral radiculopathy at L5 Acute Narcotic dependency, continuous Acute Severe sepsis with septic shock Acute Spinal stenosis, lumbar Acute Tobacco dependence Acute
[2017-05-18] MEDS: morphINE SR 100 MG TAB PO SCH (10:35)
[2017-05-18] MEDS: MEROPENEM 1 GM in NS 100 ML IV SCH ×2 (10:52→18:37)
--- NOTE | 2017-05-18 11:26 | SOAPPROG ---
SOAP Progress Note Assessment/Plan: Assessment/Plan: 72yo M s/p ex-lap for incarcerated/strangulated RIGH c necrotic cecum, proximal perforated small bowel. S/p takeback washout for RP bleed, now closed - Hb <7 today and he is more somnolent. Getting some blood today which always perks him up. - Denies abd pain, KAREN draining minimally. - Reviewed CT scan with Finer, will plan to exchange drain in perisplenic fluid collection - 04/13/17 05:14 04/16/17 09:19 04/16/17 09:24 04/16/17 09:29 04/17/17 10:27 04/19/17 08:27 04/20/17 09:58 04/21/17 10:31 04/22/17 09:16 04/23/17 13:20 04/24/17 10:50 04/26/17 07:16 04/27/17 13:27 04/30/17 10:49 05/01/17 10:01 05/03/17 08:50 05/07/17 14:39 05/08/17 15:16 05/10/17 13:53 05/11/17 14:33 05/12/17 12:17 05/13/17 09:04 05/14/17 10:05 05/15/17 12:42 05/16/17 13:03 05/17/17 17:07 05/18/17 11:25 Subjective: A little more confused today but not overly out of it Objective: Vital Signs Temp Pulse Resp BP Pulse Ox 37.0 C 95 14 88/48 L 96 05/18/17 07:34 05/18/17 08:00 05/18/17 07:34 05/18/17 09:13 05/18/17 09:13 Laboratory Results 05/18/17 05:00 05/18/17 09:40 05/17/17 05/18/17 05/19/17 05:59 05:59 05:59 Intake Total 1320 Output Total 0 Balance 0 1320 PT 19.6 SEC (12.0-15.0) H 05/16/17 04:30 INR 1.65 (0.83-1.16) H 05/16/17 04:30 ICD10 Worksheet Patient Problems: Problems Problem Status Onset Acute exacerbation of congestive heart failure Acute Atrial fibrillation with rapid ventricular response Acute DM type 1 (diabetes mellitus, type 1) Acute Perforated bowel Acute Renal failure Acute Altered mental status Acute Aspiration pneumonia Acute COPD (chronic obstructive pulmonary disease) Acute Lumbosacral radiculopathy at L5 Acute Narcotic dependency, continuous Acute Severe sepsis with septic shock Acute Spinal stenosis, lumbar Acute Tobacco dependence Acute
[2017-05-18] MEDS: MICAFUNGIN NA 100 MG in NS 100 ML IV SCH (12:06)
[2017-05-18] MEDS ORDERED: NOREPINEPHRINE/NS 500 ML IV SCH (13:00)
[2017-05-18] MEDS ORDERED: DOPamine/DEXTROSE/250 ML BAG IV ONE (13:06)
--- NOTE | 2017-05-18 13:49 | PDINTPN ---
Executive Marketing Assistant Progress Note Assessment/Plan: Assessment/Plan: * Acute hypercarbic respiratory failure- -will start BiPAP * Severe anemia-hemoglobin & hematocrit down. -transfusion in progress * Sepsis-patient in shock, with elevated white count. Antibiotics. 2 days ago. -Sepsis protocol -check cultures * Shock-will likely improve with transfusion. -agree with IV pressors * Status post exploratory laparotomy * COPD * Prostate cancer * Chronic back pain * With stress ulcer prophylaxis * VTE prophylaxis Subjective: Somnolent Objective: Vital Signs Temp Pulse Resp BP Pulse Ox 38.0 C 109 H 20 73/48 L 98 05/18/17 12:00 05/18/17 12:00 05/18/17 12:00 05/18/17 13:16 05/18/17 12:00 Laboratory Results 05/18/17 05:00 05/18/17 09:40 05/17/17 05/18/17 05/19/17 05:59 05:59 05:59 Intake Total 1320 750 Output Total 0 Balance 0 1320 750 PT 19.6 SEC (12.0-15.0) H 05/16/17 04:30 INR 1.65 (0.83-1.16) H 05/16/17 04:30 Laboratory Results 05/18/17 05:00 05/18/17 09:40 05/18/17 05/18/17 13:05 09:40 Patient Temperature 37.0 DEGREES DEGREES pCO2 54 mmHg H mmHg (34 - 38) pO2 54 mmHg L mmHg (65 - 75) Total CO2 23 mEq/L mEq/L (23 - 27) ABG pH 7.23 L (7.35 - 7.45) ABG HCO3 22 mEq/L mEq/L (22 - 26) ABG O2 Saturation 86 % L % (92 - 95) ABG Base Excess -5.3 mEq/L L mEq/L (-2.5 - 2.5) ABG Lactic Acid 0.5 mmol/L mmol/L (0.5 - 1.6) Calcium 7.4 mg/dL L mg/dL (8.5 - 10.4) Chest [id number] by myself dated 05/18/2017 reveals fluid overload. There is platelike atelectasis in the left and cardiomegaly. Mostly unchanged from [address] scan of the abdomen pelvis dated 05/18/2017 reveals a new 0 large rim enhancing fluid collection left upper quadrant continues with ruptured spleen. There is a small rim enhancing fluid collection along the right chest wall the dome of the right lobe of the liver. Physical Exam - Physical Exam General Appearance: No alert EENT: PERRL/EOMI, normal ENT inspection Neck: non-tender, full range of motion Respiratory: crackles (Few basilar), No stridor, No wheezing Cardiac/Chest: normal peripheral pulses, regular rate, rhythm Abdomen: non-tender, soft, No normal bowel sounds Male Genitalia: deferred Skin: normal color, warm/dry Neuro/Psych: No alert ICD10 Worksheet Patient Problems: Problems Problem Status Onset Acute exacerbation of congestive heart failure Acute Atrial fibrillation with rapid ventricular response Acute DM type 1 (diabetes mellitus, type 1) Acute Perforated bowel Acute Renal failure Acute Altered mental status Acute Aspiration pneumonia Acute COPD (chronic obstructive pulmonary disease) Acute Lumbosacral radiculopathy at L5 Acute Narcotic dependency, continuous Acute Severe sepsis with septic shock Acute Spinal stenosis, lumbar Acute Tobacco dependence Acute
--- NOTE | 2017-05-18 14:05 | ASMTCMCOM ---
CM Note CM Note Notes: Chart reviewed. Spoke with patient's daughter, She states she had met with Kim from [facility] and would like her father to go there. Call to [place] to check bed status. CM to follow. Date Signed: 05/16/2017 12:23 PM Electronically Signed By:Jessica Lema RN
--- NOTE | 2017-05-18 14:05 | ASMTCMCOM ---
CM Note CM Note Notes: Chart reviewed. Spoke with patient's daughter, She states she had met with Kim from [facility] [facility] and would like her father to go there. Call to [place] to check bed status. CM to follow. Date Signed: 05/16/2017 12:23 PM Electronically Signed By:Jessica Lema RN
--- NOTE | 2017-05-18 14:05 | ASMTCMCOM ---
CM Note CM Note Notes: Chart reviewed. Spoke with patient's daughter, She states she had met with Kim from [facility] and would like her father to go there. Call to [place] to check bed status. CM to follow. Date Signed: 05/16/2017 12:23 PM Electronically Signed By:Jessica Lema RN
[2017-05-19] MEDS: MIRTAZAPINE 15 MG TAB PO SCH ×2 (00:16→19:57)
[2017-05-19] MEDS: PREGABALIN 75 MG CAP PO SCH ×3 (00:16→19:57)
[2017-05-19] MEDS: QUEtiapine FUMARATE 25 MG TAB PO SCH ×2 (00:17→19:57)
[2017-05-19] MEDS: SENNOSIDES/DOCUSATE SODIUM TAB PO SCH ×3 (00:17→19:57)
[2017-05-19] MEDS: MEROPENEM 1 GM in NS 100 ML IV SCH ×3 (02:47→17:47)
[2017-05-19 06:14] LABS: PLATELET COUNT 286 10^3/uL (150-400)
[2017-05-19] MEDS: NICOTINE 14 MG/24 HR PATCH TD SCH (08:52)
[2017-05-19] MEDS: ENOXAPARIN 40 MG/0.4 ML SYR SC SCH (08:53)
[2017-05-19] MEDS: MICAFUNGIN NA 100 MG in NS 100 ML IV SCH (08:53)
[2017-05-19] MEDS: COLLAGENASE 30 GM OINTMENT TP SCH (08:54)
--- NOTE | 2017-05-19 10:10 | HOSPPROG ---
Hospitalist Progress Note Assessment/Plan: 72-year-old male presents with septic shock in the setting of small bowel perforation and peritonitis with bacteremia and numerous other complications, most recent dysphagia and ileus. Yesterday he had recurrence of septic shock. He also had enlarging splenic hematoma and malfunctioning drain. He was transferred into the the ICU, broad spectrum abx and antifungals were started, he required Levophed, he required BiPAP. He was transfused one unit PRB. The splenic drain was replaced. He is awake today and feels better. Still on Levophed. Plan: -D/W nurse: trial off Levophed -Wean off IVF -Change diet to PO -Resp status is much improved. -Monitor KAREN output, no significant output at this time -cont broad spectrum abx and antifungals, ID is following -Ok for step down if ok with the ICU team -Transfuse PRN, no indication at this time -Cont to hold long acting morphine, treat with PRN's. If restart, we can restart a lower dose -NO AC or Aspirin, he is not in Afib -Hold Benicar total critical care time is 35 minutes #Dysphagia: significantly improved over past couple days -Off TPN #Post-op ileus: Resolved #Acute Toxic and Metabolic encephalopathy: Resolved #Splenic hematoma: drain working appropriately #Small bowel perforation/peritonitis: wound vac in place, Dr. Jarocho franco daily -ongoing wound vac mgmt #YOLANDA: Cr improved to 0.8 #Septic shock: broad spectrum abx #Thrush: antifungal #Acute blood loss anemia: transfuse PRN #Right pneumothorax: chest tube placed 05/06, [id number] #Klebsiella/Bacteroides bacteremia #Acute on chronic hypoxic resp failure: acute moderate BL pleural effusions on CT. Baseline 2.5L, required intubating, 2/2 acute diastolic CHF + pleural effusion + atelectasis -resolved, on supp o2 # Metabolic Acidosis: acute, repeat ABG demonstrated resolution #Acute diastolic CHF exacerbation: 2/2 IVF required for sepsis tx, diuresed while on vent, US w/o DVT #Atelectasis: Acute, 2/2 immobility #Atrial fibrillation: s/p 4 failed cardioversion in ED. h/o MAZE - outpt restart AC once all of these conditions stabilized #Retroperitoneal hemorrhage: right inguinal region ([id number]) on CT 04/22/17, required repeat surg, stable on most recent CT #Chronic pain w/ continuous opiate dependency #Tobacco abuse: nicotine patch #Deconditioning: PT/OT. To chair. May benefit from LTAC #Hypernatremia. Resolved, off D5W #Depression, ? Hx of Bipolar. On remeron. #DVT ppx: lovenox ppx #Disp: keep inpatient, not ready for discharge Subjective: More awake. Still on Levophed but minimial. BP ok. On 3 L O2. No resp sx. Objective: Vital Signs Temp Pulse Resp BP Pulse Ox 36.7 C 88 17 158/65 H 99 05/19/17 03:00 05/19/17 09:00 05/19/17 09:00 05/19/17 09:00 05/19/17 09:00 Microbiology 05/18/17 15:34 Gram Stain - Final Other - Aspirate Laboratory Results 05/19/17 06:00 05/19/17 06:00 05/18/17 05/19/17 05/20/17 05:59 05:59 05:59 Intake Total 1320 5000 Output Total 770 80 Balance 1320 4230 -80 PT 19.6 SEC (12.0-15.0) H 05/16/17 04:30 INR 1.65 (0.83-1.16) H 05/16/17 04:30 - Physical Exam Constitutional: no apparent distress Eyes: PERRL, EOMI Ears, Nose, Mouth, Throat: moist mucous membranes Cardiovascular: regular rate and rhythym Respiratory: reduced air movement Gastrointestinal: normoactive bowel sounds, soft, non-tender abdomen Skin: warm Neurologic: AAOx3 Psychiatric: interacting appropriately, not anxious, not encephalopathic ICD10 Worksheet Patient Problems: Problems Problem Status Onset Acute exacerbation of congestive heart failure Acute Atrial fibrillation with rapid ventricular response Acute DM type 1 (diabetes mellitus, type 1) Acute Perforated bowel Acute Renal failure Acute Altered mental status Acute Aspiration pneumonia Acute COPD (chronic obstructive pulmonary disease) Acute Lumbosacral radiculopathy at L5 Acute Narcotic dependency, continuous Acute Severe sepsis with septic shock Acute Spinal stenosis, lumbar Acute Tobacco dependence Acute
--- NOTE | 2017-05-19 11:25 | PDINTPN ---
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 No longer on BiPAP * Severe anemia-hemoglobin & hematocrit down-improved after transfusion * Shock-hypovolemic. Markedly better after transfusion * Status post exploratory laparotomy * COPD * Prostate cancer * Chronic back pain * With stress ulcer prophylaxis * VTE prophylaxis * Disposition-likely okay for transfer to floor. Acute rehab soon Overall markedly improved. Subjective: Sitting up in bed. Comfortable. Denies any breathlessness. Pain is tolerable. Objective: Vital Signs Temp Pulse Resp BP Pulse Ox 36.7 C 88 17 158/65 H 99 05/19/17 03:00 05/19/17 09:00 05/19/17 09:00 05/19/17 09:00 05/19/17 09:00 Microbiology 05/18/17 15:34 Gram Stain - Final Other - Aspirate Laboratory Results 05/19/17 06:00 05/19/17 06:00 05/18/17 05/19/17 05/20/17 05:59 05:59 05:59 Intake Total 1320 5000 Output Total 770 80 Balance 1320 4230 -80 PT 19.6 SEC (12.0-15.0) H 05/16/17 04:30 INR 1.65 (0.83-1.16) H 05/16/17 04:30 Physical Exam - Physical Exam General Appearance: alert, no apparent distress EENT: PERRL/EOMI, normal ENT inspection Neck: non-tender, full range of motion, supple, normal inspection Respiratory: crackles (Few), prolonged expiration, No wheezing Cardiac/Chest: normal peripheral pulses, regular rate, rhythm, systolic murmur Abdomen: normal bowel sounds Male Genitalia: deferred Rectal: deferred Skin: normal color, warm/dry Extremities: normal range of motion, non-tender, normal inspection, normal capillary refill Neuro/Psych: no motor/sensory deficits, alert, normal mood/affect, oriented x 3 ICD10 Worksheet Patient Problems: Problems Problem Status Onset Acute exacerbation of congestive heart failure Acute Atrial fibrillation with rapid ventricular response Acute DM type 1 (diabetes mellitus, type 1) Acute Perforated bowel Acute Renal failure Acute Altered mental status Acute Aspiration pneumonia Acute COPD (chronic obstructive pulmonary disease) Acute Lumbosacral radiculopathy at L5 Acute Narcotic dependency, continuous Acute Severe sepsis with septic shock Acute Spinal stenosis, lumbar Acute Tobacco dependence Acute
--- NOTE | 2017-05-19 12:31 | SOAPPROG ---
SOAP Progress Note Assessment/Plan: Assessment: 72yo M s/p ex-lap for incarcerated/strangulated RIH c necrotic cecum, proximal perforated small bowel. S/p takeback washout for RP bleed, now closed S/p LUQ drain replacement yesterday S/p transfusion yesterday. H/H improved Pain controlled S: feels much better today afer transfusion and drain replacement. pain controlled O: laying in bed, comfortable, NAD No increased WOB +BS, soft nondistended nontender wound vac to suction LUQ drain with old heme Objective: Vital Signs Temp Pulse Resp BP Pulse Ox 36.7 C 88 17 158/65 H 99 05/19/17 03:00 05/19/17 09:00 05/19/17 09:00 05/19/17 09:00 05/19/17 09:00 Microbiology 05/18/17 15:34 Gram Stain - Final Other - Aspirate Laboratory Results 05/19/17 06:00 05/19/17 06:00 05/18/17 05/19/17 05/20/17 05:59 05:59 05:59 Intake Total 1320 5000 Output Total 770 80 Balance 1320 4230 -80 PT 19.6 SEC (12.0-15.0) H 05/16/17 04:30 INR 1.65 (0.83-1.16) H 05/16/17 04:30 ICD10 Worksheet Patient Problems: Problems Problem Status Onset Acute exacerbation of congestive heart failure Acute Atrial fibrillation with rapid ventricular response Acute DM type 1 (diabetes mellitus, type 1) Acute Perforated bowel Acute Renal failure Acute Altered mental status Acute Aspiration pneumonia Acute COPD (chronic obstructive pulmonary disease) Acute Lumbosacral radiculopathy at L5 Acute Narcotic dependency, continuous Acute Severe sepsis with septic shock Acute Spinal stenosis, lumbar Acute Tobacco dependence Acute
--- NOTE | 2017-05-19 15:10 | ASMTCMCOM ---
CM Note CM Note Notes: Pt will likely tx from ICU to floor later today or tomorrow per MD note. Plan is still [facility] at [place]. Updates faxed to [facility] 05/18. Date Signed: 05/19/2017 03:09 PM Electronically Signed By:Stephanie Wynn LCSW
--- NOTE | 2017-05-19 15:10 | ASMTCMCOM ---
CM Note CM Note Notes: Pt will likely tx from ICU to floor later today or tomorrow per MD note. Plan is still [facility] at [place]. Updates faxed to [facility] 05/18. Date Signed: 05/19/2017 03:09 PM Electronically Signed By:Stephanie Wynn LCSW
--- NOTE | 2017-05-19 15:10 | ASMTCMCOM ---
CM Note CM Note Notes: Pt will likely tx from ICU to floor later today or tomorrow per MD note. Plan is still [facility] at [place]. Updates faxed to [facility] 05/18. Date Signed: 05/19/2017 03:09 PM Electronically Signed By:Stephanie Wynn LCSW
--- NOTE | 2017-05-19 19:22 | PCMIDPN ---
Assessment/Plan: Assessment/Plan: * Peritonitis associated with necrotic cecum: Clinically improved today with somnolence likely related to hypercarbia. Fluid collection drain yesterday yielding material consistent with old blood. Cultures are currently pending. Will continue meropenem and micafungin pending culture data. Plan to limit this to short course if cultures remain negative given prior antibiotic course had just ended on 05/17/2017. 05/19/17 19:19 Subjective: Transfer to intensive care unit yesterday for somnolence with finding of hypercarbia. Marked improvement today. Underwent drainage of fluid collection yesterday with findings of plugged old drain site with subsequent drainage of approximately 250 mL of old-appearing blood. Objective: Vital Signs Temp Pulse Resp BP Pulse Ox 36.4 C 85 18 153/63 H 96 05/19/17 12:00 05/19/17 16:00 05/19/17 16:00 05/19/17 16:00 05/19/17 16:00 Microbiology 05/18/17 15:34 Mycobacterial Smear (ANNA) - Final Other - Aspirate 05/18/17 15:34 Gram Stain - Final Other - Aspirate Laboratory Results 05/19/17 06:00 05/19/17 06:00 05/18/17 05/19/17 05/20/17 05:59 05:59 05:59 Intake Total 1320 5000 1117.6 Output Total 770 820 Balance 1320 4230 297.6 C-Reactive Protein 64.0 mg/L (<10.0) H 05/15/17 05:15 Meropenem # 2 Micafungin # 2 Left upper quadrant fluid collection Gram stain negative, culture pending Blood cultures x2 pending - Physical Exam General Appearance: alert, no apparent distress, non-toxic EENT: No scleral icterus, No thrush Cardiac/Chest: regular rate, rhythm Abdomen: non-tender, distended (Mild), other (Wound VAC in place without erythema; KAREN bulb with old blood) ICD10 Worksheet Patient Problems: Problems Problem Status Onset Acute exacerbation of congestive heart failure Acute Atrial fibrillation with rapid ventricular response Acute DM type 1 (diabetes mellitus, type 1) Acute Perforated bowel Acute Renal failure Acute Altered mental status Acute Aspiration pneumonia Acute COPD (chronic obstructive pulmonary disease) Acute Lumbosacral radiculopathy at L5 Acute Narcotic dependency, continuous Acute Severe sepsis with septic shock Acute Spinal stenosis, lumbar Acute Tobacco dependence Acute
[2017-05-20] MEDS: MEROPENEM 1 GM in NS 100 ML IV SCH ×3 (02:29→19:53)
[2017-05-20] MEDS: MICAFUNGIN NA 100 MG in NS 100 ML IV SCH (08:15)
[2017-05-20] MEDS: ENOXAPARIN 40 MG/0.4 ML SYR SC SCH (08:35)
[2017-05-20] MEDS: NICOTINE 14 MG/24 HR PATCH TD SCH (08:38)
[2017-05-20] MEDS: COLLAGENASE 30 GM OINTMENT TP SCH (08:56)
[2017-05-20] MEDS ORDERED: FUROSEMIDE 20 MG/2 ML VIAL IVP ONE ×2 (09:10→13:30)
--- NOTE | 2017-05-20 11:54 | SOAPPROG ---
SOAP Progress Note Assessment/Plan: Assessment: 72yo M s/p ex-lap for incarcerated/strangulated RIH c necrotic cecum, proximal perforated small bowel. S/p takeback washout for RP bleed, now closed S/p LUQ drain replacement with evacuation of old heme S/p transfusion, H/H improved Pain controlled S: feeling better today. pain controlled. eating well. says he's still very weak and unable to walk O: laying in bed, comfortable, NAD No increased WOB +BS, soft nondistended nontender wound vac to suction LUQ drain with old heme Objective: Vital Signs Temp Pulse Resp BP Pulse Ox 36.8 C 85 18 149/58 H 95 05/20/17 08:00 05/20/17 08:00 05/20/17 08:00 05/20/17 08:00 05/20/17 08:00 Microbiology 05/18/17 15:34 Gram Stain - Final Other - Aspirate 05/18/17 15:34 Mycobacterial Smear (ANNA) - Final Other - Aspirate Laboratory Results 05/19/17 06:00 05/19/17 06:00 05/19/17 05/20/17 05/21/17 05:59 05:59 05:59 Intake Total 5000 1217.6 Output Total 770 910 Balance 4230 307.6 PT 19.6 SEC (12.0-15.0) H 05/16/17 04:30 INR 1.65 (0.83-1.16) H 05/16/17 04:30 ICD10 Worksheet Patient Problems: Problems Problem Status Onset Acute exacerbation of congestive heart failure Acute Atrial fibrillation with rapid ventricular response Acute DM type 1 (diabetes mellitus, type 1) Acute Perforated bowel Acute Renal failure Acute Altered mental status Acute Aspiration pneumonia Acute COPD (chronic obstructive pulmonary disease) Acute Lumbosacral radiculopathy at L5 Acute Narcotic dependency, continuous Acute Severe sepsis with septic shock Acute Spinal stenosis, lumbar Acute Tobacco dependence Acute
--- NOTE | 2017-05-20 11:57 | HOSPPROG ---
Hospitalist Progress Note Assessment/Plan: 72-year-old male presents with septic shock in the setting of small bowel perforation and peritonitis with bacteremia and numerous other complications, most recent dysphagia and ileus. Yesterday he had recurrence of septic shock. He also had enlarging splenic hematoma and malfunctioning drain. He was transferred into the the ICU, broad spectrum abx and antifungals were started, he required Levophed, he required BiPAP. He was transfused one unit PRB. The splenic drain was replaced. First encounter, chart reviewed. D/W Dr Chaves. He is awake today and feels better. Plan: -Monitor Resp status -Monitor KAREN output -cont broad spectrum abx and antifungals, ID is following -Transfuse PRN, no indication at this time -Cont to hold long acting morphine, treat with PRN's. If restart, we can restart a lower dose -NO AC or Aspirin, he is not in Afib -Hold Benicar #Dysphagia: significantly improved -Off TPN -tolerating PO #Post-op ileus: Resolved #Acute Toxic and Metabolic encephalopathy: Resolved #Splenic hematoma: drain working appropriately #Small bowel perforation/peritonitis: wound vac in place, Dr. Avendaño following -ongoing wound vac mgmt #YOLANDA: Cr improved to 0.8 #Septic shock: broad spectrum abx #Thrush: antifungal #Acute blood loss anemia: transfuse PRN #Right pneumothorax: chest tube placed 05/06, [id number] #Klebsiella/Bacteroides bacteremia #Acute on chronic hypoxic resp failure: acute moderate BL pleural effusions on CT. Baseline 2.5L, required intubating, 2/2 acute diastolic CHF + pleural effusion + atelectasis -O2 needs increased overnight -lasix 20mg IV once -follow # Metabolic Acidosis: acute, repeat ABG demonstrated resolution #Acute diastolic CHF exacerbation: 2/2 IVF required for sepsis tx, diuresed while on vent, US w/o DVT -O2 needs up today -small diuresis #Atelectasis: Acute, 2/2 immobility #Atrial fibrillation: s/p 4 failed cardioversion in ED. h/o MAZE - outpt restart AC once all of these conditions stabilized #Retroperitoneal hemorrhage: right inguinal region ([id number]) on CT 04/22/17, required repeat surg, stable on most recent CT #Chronic pain w/ continuous opiate dependency #Tobacco abuse: nicotine patch #Deconditioning: PT/OT. To chair. May benefit from LTAC #Hypernatremia. Resolved, off D5W #Depression, ? Hx of Bipolar. On remeron. #DVT ppx: lovenox ppx #Disp: keep inpatient, not ready for discharge LTAC? Subjective: Up in bed. Feeling well. No pain. No specific issues. Objective: Vital Signs Temp Pulse Resp BP Pulse Ox 36.8 C 85 18 149/58 H 95 05/20/17 08:00 05/20/17 08:00 05/20/17 08:00 05/20/17 08:00 05/20/17 08:00 Microbiology 05/18/17 15:34 Gram Stain - Final Other - Aspirate 05/18/17 15:34 Mycobacterial Smear (ANNA) - Final Other - Aspirate Laboratory Results 05/19/17 06:00 05/19/17 06:00 05/19/17 05/20/17 05/21/17 05:59 05:59 05:59 Intake Total 5000 1217.6 Output Total 770 910 Balance 4230 307.6 PT 19.6 SEC (12.0-15.0) H 05/16/17 04:30 INR 1.65 (0.83-1.16) H 05/16/17 04:30 - Physical Exam Constitutional: no apparent distress, not in pain, chronically ill appearing Eyes: PERRL, anicteric sclera, EOMI Ears, Nose, Mouth, Throat: moist mucous membranes, hearing normal, ears appear normal Cardiovascular: No JVD, No tachycardia, No edema Respiratory: no respiratory distress, no rales or rhonchi, reduced air movement Gastrointestinal: tenderness, No ascites, No distension Skin: warm, pressure ulcer, No erythema Musculoskeletal: no joint effusions, pain with ROM, generalized weakness Neurologic: AAOx3 Psychiatric: interacting appropriately, not anxious, poor insight ICD10 Worksheet Patient Problems: Problems Problem Status Onset Acute exacerbation of congestive heart failure Acute Atrial fibrillation with rapid ventricular response Acute DM type 1 (diabetes mellitus, type 1) Acute Perforated bowel Acute Renal failure Acute Altered mental status Acute Aspiration pneumonia Acute COPD (chronic obstructive pulmonary disease) Acute Lumbosacral radiculopathy at L5 Acute Narcotic dependency, continuous Acute Severe sepsis with septic shock Acute Spinal stenosis, lumbar Acute Tobacco dependence Acute
[2017-05-20] MEDS: PREGABALIN 75 MG CAP PO SCH ×2 (13:28→21:49)
[2017-05-20] MEDS: SENNOSIDES/DOCUSATE SODIUM TAB PO SCH ×2 (13:39→21:48)
--- NOTE | 2017-05-20 19:23 | PCMIDPN ---
Assessment/Plan: Assessment/Plan: * Peritonitis associated with necrotic cecum: Continued clinical improvement. Repeat blood cultures and fluid cultures no growth. Will continue meropenem and micafungin today. If cultures remain negative tomorrow, will plan to discontinue antibiotic therapy. Will assess procalcitonin in a.m. as well to further assess. * Abdominal wall erythema: Suspect this may be related to edema rather than cellulitis. Will observe without addition of vancomycin and reassess over time. 05/20/17 19:20 05/20/17 19:23 Subjective: Patient feels clinically improved. No significant abdominal pain. Objective: Vital Signs Temp Pulse Resp BP Pulse Ox 36.9 C 89 26 H 140/78 H 97 05/20/17 16:00 05/20/17 16:00 05/20/17 16:00 05/20/17 16:00 05/20/17 16:00 Microbiology 05/18/17 15:34 Gram Stain - Final Other - Aspirate 05/18/17 15:34 Mycobacterial Smear (ANNA) - Final Other - Aspirate Laboratory Results 05/19/17 06:00 05/19/17 06:00 05/19/17 05/20/17 05/21/17 05:59 05:59 05:59 Intake Total 5000 1217.6 900 Output Total 770 910 260 Balance 4230 307.6 640 C-Reactive Protein 64.0 mg/L (<10.0) H 05/15/17 05:15 Meropenem # 3 Micafungin # 3 Left upper quadrant fluid collection culture no growth to date, blood cultures x2 no growth - Physical Exam General Appearance: alert, no apparent distress EENT: No scleral icterus, No thrush Cardiac/Chest: regular rate, rhythm Abdomen: non-tender, distended (Mild), other (Midline wound VAC without erythema or drainage; old blood in KAREN bulb) Skin: other (Right lower abdominal wall with faint erythema which is slightly tender with subcutaneous edema; similar finding over left lateral abdominal wall ) ICD10 Worksheet Patient Problems: Problems Problem Status Onset Acute exacerbation of congestive heart failure Acute Atrial fibrillation with rapid ventricular response Acute DM type 1 (diabetes mellitus, type 1) Acute Perforated bowel Acute Renal failure Acute Altered mental status Acute Aspiration pneumonia Acute COPD (chronic obstructive pulmonary disease) Acute Lumbosacral radiculopathy at L5 Acute Narcotic dependency, continuous Acute Severe sepsis with septic shock Acute Spinal stenosis, lumbar Acute Tobacco dependence Acute
[2017-05-20] MEDS: QUEtiapine FUMARATE 25 MG TAB PO SCH (21:48)
[2017-05-20] MEDS: MIRTAZAPINE 15 MG TAB PO SCH (21:48)
[2017-05-21] MEDS: MEROPENEM 1 GM in NS 100 ML IV SCH ×3 (02:18→18:08)
[2017-05-21 04:28] LABS: PLATELET COUNT 268 10^3/uL (150-400)
[2017-05-21] MEDS: NICOTINE 14 MG/24 HR PATCH TD SCH (09:38)
[2017-05-21] MEDS: ENOXAPARIN 40 MG/0.4 ML SYR SC SCH (09:39)
[2017-05-21] MEDS: SENNOSIDES/DOCUSATE SODIUM TAB PO SCH ×2 (09:39→20:39)
[2017-05-21] MEDS: PREGABALIN 75 MG CAP PO SCH ×2 (09:41→20:39)
[2017-05-21] MEDS: MICAFUNGIN NA 100 MG in NS 100 ML IV SCH (09:41)
[2017-05-21] MEDS: COLLAGENASE 30 GM OINTMENT TP SCH ×2 (09:41→16:21)
--- NOTE | 2017-05-21 10:34 | ASMTCMCOM ---
CM Note CM Note Notes: CM spoke w/ Isabella De Oliveira'Annette regarding d/c POC. Anticipates that pt can d/c tomorrow if he is medically stable. CM notified [facility] of this update along w/ pts daughter Rosalia. CM sent over updates on allscripts. CM to follow. Date Signed: 05/21/2017 10:33 AM Electronically Signed By:LISS Strauss
--- NOTE | 2017-05-21 10:34 | ASMTCMCOM ---
CM Note CM Note Notes: CM spoke w/ Isabella De Oliveira'Annette regarding d/c POC. Anticipates that pt can d/c tomorrow if he is medically stable. CM notified [facility] of this update along w/ pts daughter Rosalia. CM sent over updates on allscripts. CM to follow. Date Signed: 05/21/2017 10:33 AM Electronically Signed By:LISS Strauss
--- NOTE | 2017-05-21 10:34 | ASMTCMCOM ---
CM Note CM Note Notes: CM spoke w/ Isabella De Oliveira'Annette regarding d/c POC. Anticipates that pt can d/c tomorrow if he is medically stable. CM notified [facility] of this update along w/ pts daughter Rosalia. CM sent over updates on allscripts. CM to follow. Date Signed: 05/21/2017 10:33 AM Electronically Signed By:LISS Strauss
--- NOTE | 2017-05-21 14:37 | HOSPPROG ---
Hospitalist Progress Note Assessment/Plan: 72-year-old male presents with septic shock in the setting of small bowel perforation and peritonitis with bacteremia and numerous other complications, most recent dysphagia and ileus. Yesterday he had recurrence of septic shock. He also had enlarging splenic hematoma and malfunctioning drain. He was transferred into the the ICU, broad spectrum abx and antifungals were started, he required Levophed, he required BiPAP. He was transfused one unit PRB. The splenic drain was replaced. D/W Dr Parish. He is awake today and feels better. Plan: -Monitor Resp status -Monitor KAREN output -cont broad spectrum abx and antifungals, per ID -Transfuse PRN, no indication at this time -Cont to hold long acting morphine, treat with PRN's. If restart, we can restart a lower dose -NO AC or Aspirin, he is not in Afib -Hold Benicar #Dysphagia: significantly improved -Off TPN -tolerating PO #Post-op ileus: Resolved #Acute Toxic and Metabolic encephalopathy: Resolved #Splenic hematoma: drain working appropriately #Small bowel perforation/peritonitis: wound vac in place, Dr. Avendaño following -ongoing wound vac mgmt -change to happen in am #YOLANDA: Cr improved #Septic shock: broad spectrum abx #Thrush: antifungal #Acute blood loss anemia: transfuse PRN #Right pneumothorax: chest tube placed 05/06, /19 #Klebsiella/Bacteroides bacteremia #Acute on chronic hypoxic resp failure: acute moderate BL pleural effusions on CT. Baseline 2.5L, required intubating, 2/2 acute diastolic CHF + pleural effusion + atelectasis -O2 needs decreased overnight -follow # Metabolic Acidosis: acute, repeat ABG demonstrated resolution #Acute diastolic CHF exacerbation: 2/2 IVF required for sepsis tx, diuresed while on vent, US w/o DVT -O2 needs up today -small diuresis #Atelectasis: Acute, 2/2 immobility #Atrial fibrillation: s/p 4 failed cardioversion in ED. h/o MAZE - outpt restart AC once all of these conditions stabilized #Retroperitoneal hemorrhage: right inguinal region ([id number]) on CT 04/22/17, required repeat surg, stable on most recent CT #Chronic pain w/ continuous opiate dependency #Tobacco abuse: nicotine patch #Deconditioning: PT/OT. To chair. May benefit from LTAC #Hypernatremia. Resolved, off D5W #Depression, ? Hx of Bipolar. On remeron. #DVT ppx: lovenox ppx #Disp: plan for DC to LTAC in am if stable Subjective: Feels well today. More tired then yesterday. No pain currently. Objective: Vital Signs Temp Pulse Resp BP Pulse Ox 37.0 C 92 20 169/79 H 92 05/21/17 11:30 05/21/17 11:30 05/21/17 11:30 05/21/17 11:30 05/21/17 11:30 Microbiology 05/18/17 15:34 Gram Stain - Final Other - Aspirate 04/24/17 14:50 Fungal Culture - Final Other - Other Laboratory Results 05/21/17 04:20 05/21/17 04:20 05/20/17 05/21/17 05/22/17 05:59 05:59 05:59 Intake Total 1217.6 1150 Output Total 910 485 Balance 307.6 665 PT 19.6 SEC (12.0-15.0) H 05/16/17 04:30 INR 1.65 (0.83-1.16) H 05/16/17 04:30 - Physical Exam Constitutional: no apparent distress, appears nourished, chronically ill appearing Eyes: PERRL, anicteric sclera, EOMI Ears, Nose, Mouth, Throat: moist mucous membranes, hearing normal, ears appear normal Cardiovascular: regular rate and rhythym, edema, No JVD Respiratory: no respiratory distress, no rales or rhonchi, reduced air movement Gastrointestinal: normoactive bowel sounds, tenderness, No ascites Skin: warm, normal color, No erythema Musculoskeletal: normal joint ROM, no joint effusions, generalized weakness Neurologic: AAOx3 Psychiatric: interacting appropriately, not anxious, not encephalopathic ICD10 Worksheet Patient Problems: Problems Problem Status Onset Renal failure Acute Tobacco dependence Acute Narcotic dependency, continuous Acute Lumbosacral radiculopathy at L5 Acute Spinal stenosis, lumbar Acute DM type 1 (diabetes mellitus, type 1) Acute Aspiration pneumonia Acute COPD (chronic obstructive pulmonary disease) Acute Severe sepsis with septic shock Acute Altered mental status Acute Acute exacerbation of congestive heart failure Acute Atrial fibrillation with rapid ventricular response Acute Perforated bowel Acute
--- NOTE | 2017-05-21 15:38 | WOCRNPDOC ---
WOCRN Advanced Assessment Note - Skin Integrity Problem, Advanced Assess Medial Abdomen Surgical Wound/Incision Dressing Type: Black Vac Foam, Wound Vac Dressing Description: Clean/Dry, Intact Exudate Amount: Scant Exudate Color: Reddish/Yellow Exudate Characteristic(s): Serosanguinous Integumentary Issue Intervention: Dressing Changed Nataly Wound Tissue: Intact Wound Bed Color: Red Wound Bed Constitution: Granulation Tissue (95%), Adhered Slough (5%) Wound Edges: Epithelizing, Attached, Well Defined Site Odor: None Site Measurement - Head-to-Toe Length X Width X Depth (cm): 21.5cmx3.5cmx0.6cm Skin Integrity Problem Comment: Wound cleaned with NS and gauze. Nataly wound skin prepped and draped. One piece granufoam cut to fit wound bed. A second smaller piece of granufoam cut to support trac pad. Vac connected at -125mmHg with good seal. Patient tolerated procedure well. Patient questions answered. APRON TRIMMER Mich in room to assist. Wound care will round again on patient on 05/23.
--- NOTE | 2017-05-21 15:38 | WOCRNPDOC ---
WOCRN Advanced Assessment Note - Skin Integrity Problem, Advanced Assess Medial Abdomen Surgical Wound/Incision Dressing Type: Black Vac Foam, Wound Vac Dressing Description: Clean/Dry, Intact Exudate Amount: Scant Exudate Color: Reddish/Yellow Exudate Characteristic(s): Serosanguinous Integumentary Issue Intervention: Dressing Changed Nataly Wound Tissue: Intact Wound Bed Color: Red Wound Bed Constitution: Granulation Tissue (95%), Adhered Slough (5%) Wound Edges: Epithelizing, Attached, Well Defined Site Odor: None Site Measurement - Head-to-Toe Length X Width X Depth (cm): 21.5cmx3.5cmx0.6cm Skin Integrity Problem Comment: Wound cleaned with NS and gauze. Nataly wound skin prepped and draped. One piece granufoam cut to fit wound bed. A second smaller piece of granufoam cut to support trac pad. Vac connected at -125mmHg with good seal. Patient tolerated procedure well. Patient questions answered. RESTAURANT MGR Mich in room to assist. Wound care will round again on patient on 05/23.
--- NOTE | 2017-05-21 15:38 | WOCRNPDOC ---
WOCRN Advanced Assessment Note - Skin Integrity Problem, Advanced Assess Medial Abdomen Surgical Wound/Incision Dressing Type: Black Vac Foam, Wound Vac Dressing Description: Clean/Dry, Intact Exudate Amount: Scant Exudate Color: Reddish/Yellow Exudate Characteristic(s): Serosanguinous Integumentary Issue Intervention: Dressing Changed Nataly Wound Tissue: Intact Wound Bed Color: Red Wound Bed Constitution: Granulation Tissue (95%), Adhered Slough (5%) Wound Edges: Epithelizing, Attached, Well Defined Site Odor: None Site Measurement - Head-to-Toe Length X Width X Depth (cm): 21.5cmx3.5cmx0.6cm Skin Integrity Problem Comment: Wound cleaned with NS and gauze. Nataly wound skin prepped and draped. One piece granufoam cut to fit wound bed. A second smaller piece of granufoam cut to support trac pad. Vac connected at -125mmHg with good seal. Patient tolerated procedure well. Patient questions answered. TRANSPORTATION SECURITY SCREENER Mich in room to assist. Wound care will round again on patient on 05/23.
--- NOTE | 2017-05-21 16:58 | SOAPPROG ---
SOAP Progress Note Assessment/Plan: Assessment: 72yo M s/p ex-lap for incarcerated/strangulated RIH c necrotic cecum, proximal perforated small bowel. S/p takeback washout for RP bleed, now closed S/p LUQ drain replacement with evacuation of old heme S/p transfusion, H/H improved Pain controlled S: feeling the same. no new complaints. O: laying in bed, comfortable, NAD No increased WOB +BS, soft nondistended nontender wound vac to suction LUQ drain with old heme, thin Objective: Vital Signs Temp Pulse Resp BP Pulse Ox 36.9 C 101 H 20 168/67 H 94 05/21/17 15:08 05/21/17 15:08 05/21/17 15:08 05/21/17 15:08 05/21/17 15:08 Microbiology 05/18/17 15:34 Gram Stain - Final Other - Aspirate 04/24/17 14:50 Fungal Culture - Final Other - Other Laboratory Results 05/21/17 04:20 05/21/17 04:20 05/20/17 05/21/17 05/22/17 05:59 05:59 05:59 Intake Total 1217.6 1150 Output Total 910 485 505 Balance 307.6 665 -505 PT 19.6 SEC (12.0-15.0) H 05/16/17 04:30 INR 1.65 (0.83-1.16) H 05/16/17 04:30 ICD10 Worksheet Patient Problems: Problems Problem Status Onset Acute exacerbation of congestive heart failure Acute Atrial fibrillation with rapid ventricular response Acute DM type 1 (diabetes mellitus, type 1) Acute Perforated bowel Acute Renal failure Acute Altered mental status Acute Aspiration pneumonia Acute COPD (chronic obstructive pulmonary disease) Acute Lumbosacral radiculopathy at L5 Acute Narcotic dependency, continuous Acute Severe sepsis with septic shock Acute Spinal stenosis, lumbar Acute Tobacco dependence Acute
--- NOTE | 2017-05-21 18:18 | PCMIDPN ---
Assessment/Plan: Assessment: Septic shock secondary to peritonitis after incarcerated cecum became necrotic. Doing clinically better again. Ready for LTAC transfer tomorrow. Now on Merrum and micafungin due to recent clinical downturn. All cultures NGTD. Plan: 1. Discontinue meropenem and micafungin. 2. Follow-up clinical course. 05/21/17 23:18 Subjective: Patient is sitting up in bed talking and states he is feeling well. No new issues. No fevers. Objective: meropeneum # 4 micafungin # 4 Vital Signs Temp Pulse Resp BP Pulse Ox 36.9 C 101 H 20 168/67 H 94 05/21/17 15:08 05/21/17 15:08 05/21/17 15:08 05/21/17 15:08 05/21/17 15:08 Microbiology 05/18/17 15:34 Gram Stain - Final Other - Aspirate 04/24/17 14:50 Fungal Culture - Final Other - Other Laboratory Results 05/21/17 04:20 05/21/17 04:20 05/20/17 05/21/17 05/22/17 05:59 05:59 05:59 Intake Total 1217.6 1150 850 Output Total 910 485 505 Balance 307.6 665 345 C-Reactive Protein 64.0 mg/L (<10.0) H 05/15/17 05:15 - Physical Exam General Appearance: WD/WN, alert, no apparent distress, non-toxic Respiratory: lungs clear, normal breath sounds, No respiratory distress Cardiac/Chest: regular rate, rhythm, No tachycardia Extremities: non-tender, normal inspection Abdomen: non-tender, soft, No mass Skin: normal color, warm/dry, No rash Neuro/Psych: alert, normal mood/affect ICD10 Worksheet Patient Problems: Problems Problem Status Onset Acute exacerbation of congestive heart failure Acute Atrial fibrillation with rapid ventricular response Acute DM type 1 (diabetes mellitus, type 1) Acute Perforated bowel Acute Renal failure Acute Altered mental status Acute Aspiration pneumonia Acute COPD (chronic obstructive pulmonary disease) Acute Lumbosacral radiculopathy at L5 Acute Narcotic dependency, continuous Acute Severe sepsis with septic shock Acute Spinal stenosis, lumbar Acute Tobacco dependence Acute
[2017-05-21 19:35] VITALS: RESP 18
[2017-05-21] MEDS: MIRTAZAPINE 15 MG TAB PO SCH (20:39)
[2017-05-21] MEDS: QUEtiapine FUMARATE 25 MG TAB PO SCH (20:39)
[2017-05-22 07:57] VITALS: BP 143/59; PULSE 96; TEMP 98.2; O2SAT 95
[2017-05-22] MEDS ORDERED: FUROSEMIDE 20 MG/2 ML VIAL IVP ONE (09:32)
[2017-05-22] MEDS: PREGABALIN 75 MG CAP PO SCH (10:05)
[2017-05-22] MEDS: ENOXAPARIN 40 MG/0.4 ML SYR SC SCH (10:05)
[2017-05-22] MEDS: NICOTINE 14 MG/24 HR PATCH TD SCH (10:07)
[2017-05-22] MEDS: COLLAGENASE 30 GM OINTMENT TP SCH ×2 (10:08→12:54)
[2017-05-22] MEDS: SENNOSIDES/DOCUSATE SODIUM TAB PO SCH (10:15)
--- NOTE | 2017-05-22 10:23 | PDIAF ---
- Diagnosis Diagnosis: bacteremia Code Status: Do Not Resuscitate - Medication Management Discharge Medications: Medications to Continue on Transfer Mirtazapine 15 mg PO HS 09/16/16 [Last Taken 09/15/16 20:00] Quetiapine Fumarate 25 mg PO HS 04/12/17 [Last Taken Unknown] Acetaminophen [Tylenol 325mg (*)] 650 mg PO Q4HRS PRN tab 05/22/17 [Last Taken Unknown] Alteplase [Cathflo Activase 2 mg (*)] 2 mg IVP PRN PRN vial 05/22/17 [Last Taken Unknown] Bisacodyl [Bisacodyl (*)] 5 mg PO PRN PRN tab 05/22/17 [Last Taken Unknown] Collagenase [Santyl (*)] 1 chintan TP DAILY oint 05/22/17 [Last Taken Unknown] Enoxaparin [Lovenox 40 MG (*)] 40 mg SC DAILY syr 05/22/17 [Last Taken Unknown] Ipratropium/Albuterol [Duoneb (*)] 3 ml IH Q6HRS PRN deyvial 05/22/17 [Last Taken Unknown] Nicotine [Nicoderm Cq 14 mg (*)] 14 mg TD DAILY patch 05/22/17 [Last Taken Unknown] Polyethylene Glycol 3350 [Miralax 17 gm (*)] 17 gm PO DAILY PRN pkt 05/22/17 [ Last Taken Unknown] Pregabalin [Lyrica 75mg (*)] 75 mg PO BID cap 05/22/17 [Last Taken Unknown] Sennosides/Docusate Sodium [Senokot-S] 1 - 2 tab PO BID tab 05/22/17 [Last Taken Unknown] Simethicone [Mylicon] 80 mg PO TID PRN tab.chew 05/22/17 [Last Taken Unknown] morphINE SR [Ms Contin/Oramorph 100 mg (*)] 100 mg PO BID tab 05/22/17 [Last Taken Unknown] Discharge Medications: Refer to the Discharge Home Medication list for PRN reason. PICC Care - Routine: Yes - Orders Services needed: Registered Nurse, Physical Therapy, Occupational Therapy, Speech Language Pathologist Diet Recommendation: no restrictions on diet Diet Texture: Dysphagia 1 - Pureed, [place] Thick Liquids, Meds Whole in Puree - Follow Up Care Current Providers and Referrals: Odalys Glez MD [Primary Care Provider] - As per Instructions Venkatesh Avendñao MD [Medical Doctor] - follow up in 2 weeks
--- NOTE | 2017-05-22 11:13 | ASMTCMCOM ---
CM Note CM Note Notes: Pt is being discharged to [facility]. CM notified pts daughter, Rosalia of pts discharge. CM provided GUNNAR Garza w/ phone number to give report to [facility]. CM sent d/c orders to [facility]. 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 A copy of the PCS form is in the chart. CM available for changes. Date Signed: 05/22/2017 11:12 AM Electronically Signed By:LISS Strauss
--- NOTE | 2017-05-22 11:13 | ASMTCMCOM ---
CM Note CM Note Notes: Pt is being discharged to [facility]. CM notified pts daughter, Rosalia of pts discharge. CM provided GUNNAR Garza w/ phone number to give report to [facility]. CM sent d/c orders to [facility]. 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 A copy of the PCS form is in the chart. CM available for changes. Date Signed: 05/22/2017 11:12 AM Electronically Signed By:LISS Strauss
--- NOTE | 2017-05-22 11:13 | ASMTCMCOM ---
CM Note CM Note Notes: Pt is being discharged to [facility]. CM notified pts daughter, Rosalia of pts discharge. CM provided GUNNAR Garza w/ phone number to give report to [facility]. CM sent d/c orders to [facility]. 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 A copy of the PCS form is in the chart. CM available for changes. Date Signed: 05/22/2017 11:12 AM Electronically Signed By:LISS Strauss
--- NOTE | 2017-05-22 14:05 | GDS ---
[f rep st] DISCHARGE SUMMARY DISCHARGE DIAGNOSES: 1. Septic shock. 2. Bacteremia. 3. Dysphagia. 4. Ileus. 5. Acute toxic metabolic encephalopathy. 6. Splenic hematoma. 7. Small bowel perforation with peritonitis. 8. Acute kidney injury. 9. Thrush. 10. Acute blood loss anemia with multiple packed red blood cell transfusion. 11. Right-sided pneumothorax, requiring chest tube. 12. Acute on chronic hypoxemic respiratory failure. 13. Acute diastolic congestive heart failure. 14. Atelectasis. 15. Atrial fibrillation. 16. Retroperitoneal hemorrhage. 17. Chronic pain with continuous opioid dependency. 18. Tobacco abuse. 19. Severe deconditioning. 20. Hyponatremia. CONSULTATIONS: 1. Surgery. 2. Infectious Disease. 3. Critical Care. PHYSICAL EXAMINATION: GENERAL: The patient is alert. VITAL SIGNS: Afebrile at 36.8, pulse is 96, respiratory rate is 18, blood pressure is 143/59. He is saturating 95% on 3 L. I have seen and eval uated the patient on the day of discharge. HOSPITAL COURSE: The patient is a 72-year-old male, who presented to the emergency room with complai nts of abdominal pain on 04/12/2017. This hospital course has been lengthy, and please refer to his chart for specific details. Essentially, the patient presented with a bowel perforation in septic sh ock with peritonitis and bacteremia. During this hospitalization, he required multiple surgical inte rventions with extensive treatment. He has had significant complications in the postoperative settin g, including dysphagia, as well as ileus and splenic hematoma. The patient does have a wound VAC in place. His condition is improving. He is tolerating a regular diet. He is having daily bowel movem ents. He will continue to require excessive hospital care given his acute process, as well as his se daniel deconditioning. The patient will be discharged and transferred to [facility] management and recommendations. Please refer to the patient's chart for specific deta ils regarding his extensive hospitalization. DISCHARGE MEDICATIONS: Please refer to EMR form. I have given report to LTAC provider. I have spent greater than 35 minutes in the care, coordination, and management of this patient's disp osition. /[id number]/MODL
--- NOTE | 2017-05-22 16:03 | ASDISCHSUM ---
Discharge Information Plan Status:LTAC Medically Cleared to Leave: Discharge Date:05/22/2017 01:21 PM D/C Disposition:[facility] D/C Disposition:[facility] Projected Discharge Date:05/18/2017 11:00 AM Transportation at D/C:Wheelchair Van Discharge Delay Reason: Follow-Up Date:05/18/2017 11:00 AM Discharge Slot: Final Diagnosis: Placement Information Referral Type:*[facility] Referral ID:[id number] Provider Name: Address 1: Phone Number: Address 2: Fax Number: City: Selection Factors: State: Referral Type:[facility] Referral ID:[id number] Provider Name:[facility] Address 1:[address] [place] [address] Address 2: City:[place] Selection Factors: State:[place] Patient Contact Information Contact Name:NUNO Relationship:Daughter Address:[address] City:[place] Alternate Phone: State/Zip Code:[place] [address] Email: Financial Information Financial Class: Primary Plan Desc:MEDICARE INPATIENT Primary Plan Number:[id number] Secondary Plan Desc:[facility] Secondary Plan Number:[id number] Assessment Information [facility] CM Progress Note CM Note CM Note Notes: Pt admitted with hypotension and bowel perf/sepsis. Pt came from home where he lives alone. Went to surg earlier today for bowel perf, currently vented. Pt has dtr, Rosalia who is local and very supportive and also has sister. Spoke w/Martine Perez from [facility] who follows pt. Pt was current w/[facility] prior to admit for nursing services. Notified Andrea at [facility] of pt's admit. Too early to know dc needs but CM w/f. Date Signed: 04/13/2017 03:46 PM Electronically Signed By:Dalila Lakhani RN [facility] CM Progress Note CM Note CM Note Notes: Discussed case in rounds, patient to go back to surgery this pm for potential wound closure, respiratory status improving. Needs undetermined at this time but anticipate patient will have SNF/Rehab needs. C/M to follow as needs arise. Date Signed: 04/16/2017 12:45 PM Electronically Signed By:Jessica Lema RN [facility] CM Progress Note CM Note CM Note Notes: Patient was extubated yesterday and doing well on Vapotherm. He has a wound vac and is complaining of pain. I spoke with his daughter Rosalia about likelihood of SNF upon discharge, she says patient has been to [facility] in the past and that this would be their first choice. Referral sent to [facility]. Rosalia would like to fill out [facility] paperwork with her father when he is alert and oriented. CM or cloth burler can help with this. Date Signed: 04/18/2017 11:33 AM Electronically Signed By:Fariba Pimentel RN [facility] CM Progress Note CM Note CM Note Notes: Pt may transfer to [facility] tomorrow if medically ready. Received call from [facility] asking for pt's d/c plan - informed her pt will d/c to [facility] when medically cleared. CM will continue to follow. Date Signed: 04/20/2017 04:33 PM Electronically Signed By:MIGUE Johnson [facility] CM Progress Note CM Note CM Note Notes: Reviewed chart re: d/c poc, pt's progress. Pt septic secondary to peritonitis, WBC remains elevated. Pt has wound vac on abdomen; ID following. Discharge date remains TBD. Pt to transfer to [facility] when medically stable. CM will cont to follow. Date Signed: 04/22/2017 04:01 PM Electronically Signed By:Ava Arnold RN [facility] TERA Progress Note CM Note CM Note Notes: 04/24/2017 Case Management note: Faxed updates to [facility]. D/C date remains unclear, pt requiring TPN. Case Management d/c poc: to [facility] when medically stable. Case Management to follow. 04/22/2017 CM Note Reviewed chart re: d/c poc, pt's progress. Pt septic secondary to peritonitis, WBC remains elevated. Pt has wound vac on abdomen; ID following. Discharge date remains TBD. Pt to transfer to [facility] when medically stable. CM will cont to follow 04/18/2017 CM Note Patient was extubated yesterday and doing well on Vapotherm. He has a wound vac and is complaining of pain. I spoke with his daughter Rosalia about likelihood of SNF upon discharge, she says patient has been to [facility] in the past and that this would be their first choice. Referral sent to [facility]. Rosalia would like to fill out [facility] paperwork with her father when he is alert and oriented. CM or cloth burler can help with this. 04/16/2017 CM Note Discussed case in rounds, patient to go back to surgery this pm for potential wound closure, respiratory status improving. Needs undetermined at this time but anticipate patient will have SNF/Rehab needs. C/M to follow as needs arise. 04/13/2017 CM Note Pt admitted with hypotension and bowel perf/sepsis. Pt came from home where he lives alone. Went to surg earlier today for bowel perf, currently vented. Pt has Rosalia walker who is local and very supportive and also has sister. Spoke w/Martine Perez from [facility] who follows pt. Pt [facility] prior to admit for nursing services. Notified Andrea at [facility] of pt's admit. Too early to know dc needs but CM w/f. Date Signed: 04/24/2017 02:26 PM Electronically Signed By:Eunice Rojas RN [facility] CM Progress Note CM Note CM Note Notes: CM spoke w/ GUNNAR Clarke regarding d/c POC. Pt's H&H is low and pt is having surgery this AM. TERA Farley from Dr. Glez' office called and checked in today. TERA provided updates. RN is requesting MD put in an order for pallative. CM to follow. Date Signed: 04/26/2017 02:59 PM Electronically Signed By:LISS Strauss [facility] CM Progress Note CM Note CM Note Notes: Chart reviewed. Patient discussed in am rounds. Prognosis is gaurded per MD. He is s/p exploratory surgery and evacuation of hematoma as well as rght chest tube placement. Intubated. Per Chaplain Oliva, family trying to co-ordinate a meeting time to discuss POC. NTBD at this time. CM to follow, Date Signed: 04/27/2017 12:09 PM Electronically Signed By:Jessica Lema RN [facility] CM Progress Note CM Note CM Note Notes: Spoke with daughter Rosalia as she is main contact and acting proxy for this patient. She is agreeable to meeting this afternoon. She will attempt to reach her Aunt to make a definite time. She has phone number to call. Chart reviewed. Patient discussed in am rounds. Prognosis is guarded per MD. He is s/p exploratory surgery and evacuation of hematoma as well as Right chest tube placement. Intubated. Per Chaplain Oliva, family trying to co-ordinate a meeting time to discuss POC. NTBD at this time. CM to follow. Date Signed: 04/27/2017 12:52 PM Electronically Signed By:Jessica Lema RN [facility] TERA Progress Note CM Note CM Note Notes: Met with daughter with Dr. Maicol Schulz and myself. Emotional support provided. She is able to verbalize understanding of her fathers clinical status. She states she does not want active CPR in the setting of sudden arrest with the understanding that extensive supportive measure are currently in place as it stands now. She is encouraged to speak to family members and is open to discussions regarding palliative/hospice care. CM to follow. Date Signed: 04/27/2017 04:42 PM Electronically Signed By:Jessica Lema RN [facility] Progress Note CM Note TERA Note Notes: Patient following commands, continues on the vent has been bronced numerous times and replacement of blood products. Spoke with Rosalia, his daughter via phone for "Family Meeting" see Notes. Daughter reports that patient has chronic back pain s/p numerous surgeries. He was scheduled to see Dr. Shin today re: need for surgery. Daughter reports that patient has been unable to work for a long time. Patient has [facility]. [facility] called[facility] check on patient's progress. Patient will probably need SNF Rehab on discharge. He is unable to work with Therap[facility] at this time. Date Signed: 05/01/2017 02:44 PM Electronically Signed By:Nella Moreno LCSW [facility] CM Progress Note CM Note CM Note Notes: Patient has been making gains the past few days. Extubated last night and doing well. Still has wound vac to abdomen. He will have a swallow eval today with PURCHASING COORDINATOR and is ok'ed for clear liquids. Goal to advance diet when bowel function more stable. Patient will hopefully transfer out of ICU tomorrow. Spiritual Care has been in touch with his daughter/ANASTACIA Lindsey and she appreciates the weekly check-ins. She is realistic about her father's needs; earlier in his hospitalization, she had been in favor of SNF rehab at [facility], so that will still be an option as patient nears d/c. I spoke dee dee Nevarez at [facility] who confirms that the facility will accept him if he chooses to come there. CM will follow. Date Signed: 05/03/2017 11:59 AM Electronically Signed By:Fariba Pimentel RN [facility] CM Progress Note CM Note CM Note Notes: Pt improving and transferring to floor today. D/c plan is still to [facility] when medically ready. Date Signed: 05/04/2017 04:06 PM Electronically Signed By:MIGUE Johnson [facility] CM Progress Note CM Note CM Note Notes: 05/07/2017 Case Management Note: Reviewed chart. PT recommending Inpatient Rehab. Left VM for [facility] (ext [id number]) to evaluate pt. [facility] accepted pt. D/C date remains unclear. Case Management to follow. Date Signed: 05/07/2017 10:02 AM Electronically Signed By:Eunice Rojas RN [facility] CM Progress Note CM Note CM Note Notes: 05/09/2017 Case Management Note Reviewed chart, spoke w/RN. There are 2 d/c options at the moment. Option #1: Inpatient rehab following pt and course of hospitalization. Will make decision closer to d/c. Option #2: pt accepted to [facility] SNF rehab. Faxed updates today. Case management to continue to follow. Date Signed: 05/09/2017 11:41 AM Electronically Signed By:Eunice Rojas RN [facility] CM Progress Note CM Note CM Note Notes: w/pt's dtrRosalia to discuss LTACs. [facility] and [facility] are two she is considering. She will discuss with her aunt (patients sister) and get back to us and then we can send referral. D/W Dr Cast and RN. Date Signed: 05/11/2017 10:51 AM Electronically Signed By:Dalila Lakhani RN [facility] CM Progress Note CM Note CM Note Notes: 05/13/2017 Case Management Note. Faxed referrals to [facility] and [facility] referrals at request of Rosalia (daughter). Case Management to follow. Date Signed: 05/13/2017 02:30 PM Electronically Signed By:Eunice Rojas RN [facility] CM Progress Note CM Note CM Note Notes: Chart reviewed. Spoke with patient's daughter, She states she had met with Kim [facility] and would like her father to go there. Call to [facility] to check bed status. CM to follow. Date Signed: 05/16/2017 12:23 PM Electronically Signed By:Jessica Lema RN [facility] CM Progress Note CM Note CM Note Notes: Carol from [facility] called and would like hospitalist do a doc to doc w/ their provider. TERA passed on this info to attending physician, Dr. Chaves. Anticipates that pt will d/c tomorrow. CM spoke w/ Rosalia, daughter and provided her updates. CM sent updates to [facility]. CM to follow. Date Signed: 05/17/2017 04:00 PM Electronically Signed By:LISS Strauss [facility] TERA Progress Note TERA Note TERA Note Notes: TERA spoke w/ Dr. Chaves and GUNNAR Argueta regarding d/c POC. Pt will most likely discharge on Sunday, at the earliest. Pts H&H and BP is dropping. Pt is scheduled to have an abdominal and chest x ray today. CM called Rosalia, daughter and relayed this information. CM sent [facility] updates through all scripts and informed them pt is not discharging today. CM to follow. Date Signed: 05/18/2017 09:51 AM Electronically Signed By:LISS Strauss [facility] TERA Progress Note TERA Bustos CM Note Notes: Pt will likely tx from ICU to floor later today or tomorrow per note. Plan is [facility] [place]. Updates faxed to [facility] 05/18. Date Signed: 05/19/2017 03:09 PM Electronically Signed By:Stephanie Wynn LCSW [facility] Progress Note CM Note CM Note Notes: CM spoke w/ Isabella Augustin regarding d/c POC. Anticipates that pt can d/c tomorrow if he is medically stable. CM notified [facility] of this update along w/ pts daughter Rosalia. CM sent over updates on allscripts. to follow. Date Signed: 05/21/2017 10:33 AM Electronically Signed By:LISS Strauss [facility] TERA Progress Note CM Note TERA Note Notes: Pt is being discharged to [facility]. CM notified pts daughterRosalia of pts discharge. CM provided GUNNAR Garza w/ phone number to give report to [facility]. CM sent d/c orders to [facility]. CM set up a stretcher for pick up man. A copy of the PCS form is in the chart. CM available for changes. Date Signed: 05/22/2017 11:12 AM Electronically Signed By:LISS Strauss Intervention Information Intervention Type:*IM-Signed Date of Service:05/22/2017 12:18 PM Patient Type:Inpatient Staff Member:Courtney Alonso Hours: Discipline: Severity: Comment:
--- NOTE | 2017-05-22 16:03 | ASDISCHSUM ---
Discharge Information Plan Status:LTAC Medically Cleared to Leave: Discharge Date:05/22/2017 01:21 PM D/C Disposition:[facility] D/C Disposition:[facility] Projected Discharge Date:05/18/2017 11:00 AM Transportation at D/C:Wheelchair Van Discharge Delay Reason: Follow-Up Date:05/18/2017 11:00 AM Discharge Slot: Final Diagnosis: Placement Information Referral Type:*Jail/SNF Referral ID:[id number] Provider Name: Address 1: Phone Number: Address 2: Fax Number: City: Selection Factors: State: [facility] Type:[facility] Referral ID:[id number] Provider Name:[facility] Address 1:[address] [place], [place] [address] Address 2: City:[place] Selection Factors: State:[place] Patient Contact Information Contact Name:NUNO Relationship:Daughter Address:[address] City:[place] Alternate Phone: State/Zip Code:[place] [address] Email: Financial Information Financial Class: Primary Plan Desc:MEDICARE INPATIENT Primary Plan Number:[id number] Secondary Plan Desc:[facility] Secondary Plan Number:[id number] Assessment Information [facility] CM Progress Note CM Note CM Note Notes: Pt admitted with hypotension and bowel perf/sepsis. Pt came from home where he lives alone. Went to surg earlier today for bowel perf, currently vented. Pt has dtr, Rosalia who is local and very supportive and also has sister. Spoke w/Martnie Perez from [facility] who follows pt. Pt was current w/[facility] prior to admit for nursing services. Notified Andrea at [facility] of pt's admit. Too early to know dc needs but CM w/f. Date Signed: 04/13/2017 03:46 PM Electronically Signed By:Dalila Lakhani RN [facility] CM Progress Note CM Note CM Note Notes: Discussed case in rounds, patient to go back to surgery this pm for potential wound closure, respiratory status improving. Needs undetermined at this time but anticipate patient will have SNF/Rehab needs. C/M to follow as needs arise. Date Signed: 04/16/2017 12:45 PM Electronically Signed By:Jessica Lema RN [facility] CM Progress Note CM Note CM Note Notes: Patient was extubated yesterday and doing well on Vapotherm. He has a wound vac and is complaining of pain. I spoke with his daughter Rosalia about likelihood of SNF upon discharge, she says patient has been to [facility] in the past and that this would be their first choice. Referral sent to [facility]. Rosalia would like to fill out [facility] paperwork with her father when he is alert and oriented. CM or bung driver can help with this. Date Signed: 04/18/2017 11:33 AM Electronically Signed By:Fariba Pimentel RN [facility] CM Progress Note CM Note CM Note Notes: Pt may transfer to [facility] tomorrow if medically ready. Received call from [facility] asking for pt's d/c plan - informed her pt will d/c to [facility] when medically cleared. CM will continue to follow. Date Signed: 04/20/2017 04:33 PM Electronically Signed By:MIGUE Johnson [facility] CM Progress Note CM Note CM Note Notes: Reviewed chart re: d/c poc, pt's progress. Pt septic secondary to peritonitis, WBC remains elevated. Pt has wound vac on abdomen; ID following. Discharge date remains TBD. Pt to transfer to [facility] when medically stable. CM will cont to follow. Date Signed: 04/22/2017 04:01 PM Electronically Signed By:Ava Arnold RN [facility] TERA Progress Note CM Note CM Note Notes: 04/24/2017 Case Management note: Faxed updates to [facility]. D/C date remains unclear, pt requiring TPN. Case Management d/c poc: to [facility] when medically stable. Case Management to follow. 04/22/2017 CM Note Reviewed chart re: d/c poc, pt's progress. Pt septic secondary to peritonitis, WBC remains elevated. Pt has wound vac on abdomen; ID following. Discharge date remains TBD. Pt to transfer to [facility] when medically stable. CM will cont to follow 04/18/2017 CM Note Patient was extubated yesterday and doing well on Vapotherm. He has a wound vac and is complaining of pain. I spoke with his daughter Rosalia about likelihood of SNF upon discharge, she says patient has been to [facility] in the past and that this would be their first choice. Referral sent to [facility]. Rosalia would like to fill out [facility] paperwork with her father when he is alert and oriented. CM or bung driver can help with this. 04/16/2017 CM Note Discussed case in rounds, patient to go back to surgery this pm for potential wound closure, respiratory status improving. Needs undetermined at this time but anticipate patient will have SNF/Rehab needs. C/M to follow as needs arise. 04/13/2017 CM Note Pt admitted with hypotension and bowel perf/sepsis. Pt came from home where he lives alone. Went to surg earlier today for bowel perf, currently vented. Pt has Rosalia walker who is local and very supportive and also has sister. Spoke w/Martine Perez from [facility] who follows pt. [facility] prior to admit for nursing services. Notified Andrea at [facility] of pt's admit. Too early to know dc needs but CM w/f. Date Signed: 04/24/2017 02:26 PM Electronically Signed By:Eunice Rojas RN [facility] CM Progress Note CM Note CM Note Notes: CM spoke w/ GUNNAR Clarke regarding d/c POC. Pt's H&H is low and pt is having surgery this AM. TERA Farley from Dr. Glez' office called and checked in today. TERA provided updates. RN is requesting MD put in an order for pallative. CM to follow. Date Signed: 04/26/2017 02:59 PM Electronically Signed By:LISS Strauss [facility] CM Progress Note CM Note CM Note Notes: Chart reviewed. Patient discussed in am rounds. Prognosis is gaurded per MD. He is s/p exploratory surgery and evacuation of hematoma as well as rght chest tube placement. Intubated. Per Chaplain Oliva, family trying to co-ordinate a meeting time to discuss POC. NTBD at this time. CM to follow, Date Signed: 04/27/2017 12:09 PM Electronically Signed By:Jessica Lema RN [facility] CM Progress Note CM Note CM Note Notes: Spoke with daughter Rosalia as she is main contact and acting proxy for this patient. She is agreeable to meeting this afternoon. She will attempt to reach her Aunt to make a definite time. She has phone number to call. Chart reviewed. Patient discussed in am rounds. Prognosis is guarded per MD. He is s/p exploratory surgery and evacuation of hematoma as well as Right chest tube placement. Intubated. Per Chaplain Oliva, family trying to co-ordinate a meeting time to discuss POC. NTBD at this time. CM to follow. Date Signed: 04/27/2017 12:52 PM Electronically Signed By:Jessica Lema RN [facility] TERA Progress Note CM Note CM Note Notes: Met with daughter with Dr. Maicol Schulz and myself. Emotional support provided. She is able to verbalize understanding of her fathers clinical status. She states she does not want active CPR in the setting of sudden arrest with the understanding that extensive supportive measure are currently in place as it stands now. She is encouraged to speak to family members and is open to discussions regarding palliative/hospice care. CM to follow. Date Signed: 04/27/2017 04:42 PM Electronically Signed By:Jessica Lema RN [facility] Progress Note CM Note TERA Note Notes: Patient following commands, continues on the vent has been bronced numerous times and replacement of blood products. Spoke with Rosalia, his daughter via phone for "Family Meeting" see Notes. Daughter reports that patient has chronic back pain s/p numerous surgeries. He was scheduled to see Dr. Shin today re: need for surgery. Daughter reports that patient has been unable to work for a long time. Patient has [facility]. [facility] called[facility] check on patient's progress. Patient will probably need SNF Rehab on discharge. He is unable to work with Therap[facility] at this time. Date Signed: 05/01/2017 02:44 PM Electronically Signed By:Nella Moreno LCSW [facility] CM Progress Note CM Note CM Note Notes: Patient has been making gains the past few days. Extubated last night and doing well. Still has wound vac to abdomen. He will have a swallow eval today with [employer] and is ok'ed for clear liquids. Goal to advance diet when bowel function more stable. Patient will hopefully transfer out of ICU tomorrow. Spiritual Care has been in touch with his daughter/ANASTACIA Lindsey and she appreciates the weekly check-ins. She is realistic about her father's needs; earlier in his hospitalization, she had been in favor of SNF rehab at [facility], so that will still be an option as patient nears d/c. I spoke dee dee Nevarez at [facility] who confirms that the facility will accept him if he chooses to come there. CM will follow. Date Signed: 05/03/2017 11:59 AM Electronically Signed By:Fariba Pimentel RN [facility] CM Progress Note CM Note CM Note Notes: Pt improving and transferring to floor today. D/c plan is still to [facility] when medically ready. Date Signed: 05/04/2017 04:06 PM Electronically Signed By:MIGUE Johnson [facility] CM Progress Note CM Note CM Note Notes: 05/07/2017 Case Management Note: Reviewed chart. PT recommending Inpatient Rehab. Left VM for [facility] (ext [id number]) to evaluate pt. [facility] accepted pt. D/C date remains unclear. Case Management to follow. Date Signed: 05/07/2017 10:02 AM Electronically Signed By:Eunice Rojas RN [facility] CM Progress Note CM Note CM Note Notes: 05/09/2017 Case Management Note Reviewed chart, spoke w/RN. There are 2 d/c options at the moment. Option #1: Inpatient rehab following pt and course of hospitalization. Will make decision closer to d/c. Option #2: pt accepted to [facility] SNF rehab. Faxed updates today. Case management to continue to follow. Date Signed: 05/09/2017 11:41 AM Electronically Signed By:Eunice Rojas RN [facility] CM Progress Note CM Note CM Note Notes: w/pt's dtrRosalia to discuss LTACs. No [facility] and [facility] are two she is considering. She will discuss with her aunt (patients sister) and get back to us and then we can send referral. D/W Dr Cast and RN. Date Signed: 05/11/2017 10:51 AM Electronically Signed By:Dalila Lakhani RN [facility] CM Progress Note CM Note CM Note Notes: 05/13/2017 Case Management Note. Faxed referrals to [place] and [facility] referrals at request of Rosalia (daughter). Case Management to follow. Date Signed: 05/13/2017 02:30 PM Electronically Signed By:Eunice Rojas RN [facility] CM Progress Note CM Note CM Note Notes: Chart reviewed. Spoke with patient's daughter, She states she had met with Kim from [facility] and would like her father to go there. Call to [facility] to check bed status. CM to follow. Date Signed: 05/16/2017 12:23 PM Electronically Signed By:Jessica Lema RN [facility] CM Progress Note CM Note CM Note Notes: Carol from [facility] called and would like hospitalist do a doc to doc w/ their provider. TERA passed on this info to attending physician, Dr. Chaves. Anticipates that pt will d/c tomorrow. CM spoke w/ Rosalia, daughter and provided her updates. CM sent updates to [facility]. CM to follow. Date Signed: 05/17/2017 04:00 PM Electronically Signed By:LISS Strauss [facility] TER[facility] Progress Note TERA Note TERA Note Notes: TERA spoke w/ Dr. Chaves and GUNNAR Argueta regarding d/c POC. Pt will most likely discharge on Sunday, at the earliest. Pts H&H and BP is dropping. Pt is scheduled to have an abdominal and chest x ray today. CM called Rosalia, daughter and relayed this information. CM sent [facility] updates through all scripts and informed them pt is not discharging today. CM to follow. Date Signed: 05/18/2017 09:51 AM Electronically Signed By:LISS Strauss [facility] TERA Progress Note TERA Bustos CM Note Notes: Pt will likely tx from ICU to floor later today or tomorrow per note. [facility] [place]. Updates faxed to [facility] 05/18. Date Signed: 05/19/2017 03:09 PM Electronically Signed By:Stephanie Wynn LCSW [facility] Progress Note CM Note CM Note Notes: CM spoke w/ Isabella Augustin regarding d/c POC. Anticipates that pt can d/c tomorrow if he is medically stable. CM notified [facility] of this update along w/ pts daughter Rosalia. CM sent over updates on allscripts. to follow. Date Signed: 05/21/2017 10:33 AM Electronically Signed By:LISS Strauss [facility] TERA Progress Note CM Note TERA Note Notes: Pt is being discharged to [facility]. CM notified pts daughterRosalia of pts discharge. CM provided GUNNAR Garza w/ phone number to give report to [facility]. CM sent d/c orders to [facility]. CM set up a stretcher for chart picker. A copy of the PCS form is in the chart. CM available for changes. Date Signed: 05/22/2017 11:12 AM Electronically Signed By:LISS Strauss Intervention Information Intervention Type:*IM-Signed Date of Service:05/22/2017 12:18 PM Patient Type:Inpatient Staff Member:Courtney Alonso Hours: Discipline: Severity: Comment:
--- NOTE | 2017-05-22 16:03 | ASDISCHSUM ---
Discharge Information Plan Status:LTAC Medically Cleared to Leave: Discharge Date:05/22/2017 01:21 PM D/C Disposition:[facility] D/C Disposition:[facility] Projected Discharge Date:05/18/2017 11:00 AM Transportation at D/C:Wheelchair Van Discharge Delay Reason: Follow-Up Date:05/18/2017 11:00 AM Discharge Slot: Final Diagnosis: Placement Information Referral Type:*Skilled Nursing/SNF Referral ID:[id number] Provider Name: Address 1: Phone Number: Address 2: Fax Number: City: Selection Factors: State: Referral Type:[facility] Referral ID:[id number] Provider Name:[facility] Address 1:[address] [place] [address] Address 2: City:[place] Selection Factors: State:[place] Patient Contact Information Contact Name:NUNO Relationship:Daughter Address:[address] City:[place] Alternate Phone: State/Zip Code:[place] [address] Email: Financial Information Financial Class: Primary Plan Desc:MEDICARE INPATIENT Primary Plan Number:[id number] Secondary Plan Desc:[facility] Secondary Plan Number:[id number] Assessment Information [facility] CM Progress Note CM Note CM Note Notes: Pt admitted with hypotension and bowel perf/sepsis. Pt came from home where he lives alone. Went to surg earlier today for bowel perf, currently vented. Pt has dtr, Rosalia who is local and very supportive and also has sister. Spoke w/Martine Perez from [facility] who follows pt. Pt was current w/[facility] prior to admit for nursing services. Notified Andrea at [facility] of pt's admit. Too early to know dc needs but CM w/f. Date Signed: 04/13/2017 03:46 PM Electronically Signed By:Dalila Lakhani RN [facility] CM Progress Note CM Note CM Note Notes: Discussed case in rounds, patient to go back to surgery this pm for potential wound closure, respiratory status improving. Needs undetermined at this time but anticipate patient will have SNF/Rehab needs. C/M to follow as needs arise. Date Signed: 04/16/2017 12:45 PM Electronically Signed By:Jessica Lema RN [facility] CM Progress Note CM Note CM Note Notes: Patient was extubated yesterday and doing well on Vapotherm. He has a wound vac and is complaining of pain. I spoke with his daughter Rosalia about likelihood of SNF upon discharge, she says patient has been to [facility] in the past and that this would be their first choice. Referral sent to [facility]. Rosalia would like to fill out [facility] paperwork with her father when he is alert and oriented. CM or winch driver can help with this. Date Signed: 04/18/2017 11:33 AM Electronically Signed By:Fariba Pimentel RN [facility] CM Progress Note CM Note CM Note Notes: Pt may transfer to [facility] tomorrow if medically ready. Received call from [facility] asking for pt's d/c plan - informed her pt will d/c to [facility] when medically cleared. CM will continue to follow. Date Signed: 04/20/2017 04:33 PM Electronically Signed By:MIGUE Johnson [facility] CM Progress Note CM Note CM Note Notes: Reviewed chart re: d/c poc, pt's progress. Pt septic secondary to peritonitis, WBC remains elevated. Pt has wound vac on abdomen; ID following. Discharge date remains TBD. Pt to transfer to [facility] when medically stable. CM will cont to follow. Date Signed: 04/22/2017 04:01 PM Electronically Signed By:Ava Arnold RN [facility] TERA Progress Note CM Note CM Note Notes: 04/24/2017 Case Management note: Faxed updates to [facility]. D/C date remains unclear, pt requiring TPN. Case Management d/c poc: to [facility] when medically stable. Case Management to follow. 04/22/2017 CM Note Reviewed chart re: d/c poc, pt's progress. Pt septic secondary to peritonitis, WBC remains elevated. Pt has wound vac on abdomen; ID following. Discharge date remains TBD. Pt to transfer to [facility] when medically stable. CM will cont to follow 04/18/2017 CM Note Patient was extubated yesterday and doing well on Vapotherm. He has a wound vac and is complaining of pain. I spoke with his daughter Rosalia about likelihood of SNF upon discharge, she says patient has been to [facility] in the past and that this would be their first choice. Referral sent to [facility]. Rosalia would like to fill out [facility] paperwork with her father when he is alert and oriented. CM or winch driver can help with this. 04/16/2017 CM Note Discussed case in rounds, patient to go back to surgery this pm for potential wound closure, respiratory status improving. Needs undetermined at this time but anticipate patient will have SNF/Rehab needs. C/M to follow as needs arise. 04/13/2017 CM Note Pt admitted with hypotension and bowel perf/sepsis. Pt came from home where he lives alone. Went to surg earlier today for bowel perf, currently vented. Pt has Rosalia walker who is local and very supportive and also has sister. Spoke w/Martine Perez from [facility] who follows pt. Pt [facility] prior to admit for nursing services. Notified Andrea at [facility] of pt's admit. Too early to know dc needs but CM w/f. Date Signed: 04/24/2017 02:26 PM Electronically Signed By:Eunice Rojas RN [facility] CM Progress Note CM Note CM Note Notes: CM spoke w/ GUNNAR Clarke regarding d/c POC. Pt's H&H is low and pt is having surgery this AM. TERA Farley from Dr. Glez' office called and checked in today. TERA provided updates. RN is requesting MD put in an order for pallative. CM to follow. Date Signed: 04/26/2017 02:59 PM Electronically Signed By:LISS Strauss [facility] CM Progress Note CM Note CM Note Notes: Chart reviewed. Patient discussed in am rounds. Prognosis is gaurded per MD. He is s/p exploratory surgery and evacuation of hematoma as well as rght chest tube placement. Intubated. Per Chaplain Oliva, family trying to co-ordinate a meeting time to discuss POC. NTBD at this time. CM to follow, Date Signed: 04/27/2017 12:09 PM Electronically Signed By:Jessica Lema RN [facility] CM Progress Note CM Note CM Note Notes: Spoke with daughter Rosalia as she is main contact and acting proxy for this patient. She is agreeable to meeting this afternoon. She will attempt to reach her Aunt to make a definite time. She has phone number to call. Chart reviewed. Patient discussed in am rounds. Prognosis is guarded per MD. He is s/p exploratory surgery and evacuation of hematoma as well as Right chest tube placement. Intubated. Per Chaplain Oliva, family trying to co-ordinate a meeting time to discuss POC. NTBD at this time. CM to follow. Date Signed: 04/27/2017 12:52 PM Electronically Signed By:Jessica Lema RN [facility] TERA Progress Note CM Note CM Note Notes: Met with daughter with Dr. Maicol Schulz and myself. Emotional support provided. She is able to verbalize understanding of her fathers clinical status. She states she does not want active CPR in the setting of sudden arrest with the understanding that extensive supportive measure are currently in place as it stands now. She is encouraged to speak to family members and is open to discussions regarding palliative/hospice care. CM to follow. Date Signed: 04/27/2017 04:42 PM Electronically Signed By:Jessica Lema RN [facility] Progress Note CM Note TERA Note Notes: Patient following commands, continues on the vent has been bronced numerous times and replacement of blood products. Spoke with Rosalia, his daughter via phone for "Family Meeting" see Notes. Daughter reports that patient has chronic back pain s/p numerous surgeries. He was scheduled to see Dr. Shin today re: need for surgery. Daughter reports that patient has been unable to work for a long time. Patient has [facility]. [facility] called[facility] check on patient's progress. Patient will probably need SNF Rehab on discharge. He is unable to work with Therap[facility] at this time. Date Signed: 05/01/2017 02:44 PM Electronically Signed By:Nella Moreno LCSW [facility] CM Progress Note CM Note CM Note Notes: Patient has been making gains the past few days. Extubated last night and doing well. Still has wound vac to abdomen. He will have a swallow eval today with [employer] and is ok'ed for clear liquids. Goal to advance diet when bowel function more stable. Patient will hopefully transfer out of ICU tomorrow. Spiritual Care has been in touch with his daughter/ANASTACIA Lindsey and she appreciates the weekly check-ins. She is realistic about her father's needs; earlier in his hospitalization, she had been in favor of SNF rehab at [facility], so that will still be an option as patient nears d/c. I spoke dee dee Nevarez at [facility] who confirms that the facility will accept him if he chooses to come there. CM will follow. Date Signed: 05/03/2017 11:59 AM Electronically Signed By:Fariba Pimentel RN [facility] CM Progress Note CM Note CM Note Notes: Pt improving and transferring to floor today. D/c plan is still to [facility] when medically ready. Date Signed: 05/04/2017 04:06 PM Electronically Signed By:MIGUE Johnson [facility] CM Progress Note CM Note CM Note Notes: 05/07/2017 Case Management Note: Reviewed chart. PT recommending Inpatient Rehab. Left VM for Ofelia (ext [id number]) to evaluate pt. [facility] accepted pt. D/C date remains unclear. Case Management to follow. Date Signed: 05/07/2017 10:02 AM Electronically Signed By:Eunice Rojas RN [facility] CM Progress Note CM Note CM Note Notes: 05/09/2017 Case Management Note Reviewed chart, spoke w/RN. There are 2 d/c options at the moment. Option #1: Inpatient rehab following pt and course of hospitalization. Will make decision closer to d/c. Option #2: pt accepted to [facility] SNF rehab. Faxed updates today. Case management to continue to follow. Date Signed: 05/09/2017 11:41 AM Electronically Signed By:Eunice Rojas RN [facility] CM Progress Note CM Note CM Note Notes: w/pt's dtrRosalia to discuss LTACs. No [place] [facility] and [facility] are two she is considering. She will discuss with her aunt (patients sister) and get back to us and then we can send referral. D/W Dr Cast and RN. Date Signed: 05/11/2017 10:51 AM Electronically Signed By:Dalila Lakhani RN [facility] CM Progress Note CM Note CM Note Notes: 05/13/2017 Case Management Note. Faxed referrals to [place] and [facility] referrals at request of Rosalia (daughter). Case Management to follow. Date Signed: 05/13/2017 02:30 PM Electronically Signed By:Eunice Rojas RN [facility] CM Progress Note CM Note CM Note Notes: Chart reviewed. Spoke with patient's daughter, She states she had met with Kim from [facility] and would like her father to go there. Call to [facility] to check bed status. CM to follow. Date Signed: 05/16/2017 12:23 PM Electronically Signed By:Jessica Lema RN [facility] CM Progress Note CM Note CM Note Notes: Carol from [facility] called and would like hospitalist do a doc to doc w/ their provider. TERA passed on this info to attending physician, Dr. Chaves. Anticipates that pt will d/c tomorrow. CM spoke w/ Rosalia, daughter and provided her updates. CM sent updates to [facility]. CM to follow. Date Signed: 05/17/2017 04:00 PM Electronically Signed By:LISS Strauss [facility] TERA Progress Note TERA Note TERA Note Notes: TERA spoke w/ Dr. Chaves and GUNNAR Argueta regarding d/c POC. Pt will most likely discharge on Sunday, at the earliest. Pts H&H and BP is dropping. Pt is scheduled to have an abdominal and chest x ray today. CM called Rosalia, daughter and relayed this information. CM sent [facility] updates through all scripts and informed them pt is not discharging today. CM to follow. Date Signed: 05/18/2017 09:51 AM Electronically Signed By:LISS Strauss [facility] TERA Progress Note TERA [place] CM Note Notes: Pt will likely tx from ICU to floor later today or tomorrow per note. Plan is still [facility] at [place]. Updates faxed to [facility] 05/18. Date Signed: 05/19/2017 03:09 PM Electronically Signed By:Stephanie Wynn LCSW [facility] Progress Note CM Note CM Note Notes: CM spoke w/ Isabella Augustin regarding d/c POC. Anticipates that pt can d/c tomorrow if he is medically stable. CM notified [facility] of this update along w/ pts daughter Rosalia. CM sent over updates on allscripts. to follow. Date Signed: 05/21/2017 10:33 AM Electronically Signed By:LISS Strauss [facility] TERA Progress Note CM Note TERA Note Notes: Pt is being discharged to [facility]. CM notified pts daughterRosalia of pts discharge. CM provided GUNNAR Garza w/ phone number to give report to [facility]. CM sent d/c orders to [facility]. 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 A copy of the PCS form is in the chart. CM available for changes. Date Signed: 05/22/2017 11:12 AM Electronically Signed By:LISS Strauss Intervention Information Intervention Type:*IM-Signed Date of Service:05/22/2017 12:18 PM Patient Type:Inpatient Staff Member:Courtney Alonso Hours: Discipline: Severity: Comment:
--- NOTE | 2017-05-22 16:16 | SOAPPROG ---
SOAP Progress Note Assessment/Plan: Assessment: 72yo M s/p ex-lap for incarcerated/strangulated RIH c necrotic cecum, proximal perforated small bowel. S/p takeback washout for RP bleed, now closed S/p LUQ drain replacement with evacuation of old heme S/p transfusion, H/H improved Pain controlled S: feeling the same. no new complaints. O: laying in bed, comfortable, NAD No increased WOB +BS, soft nondistended nontender wound vac to suction LUQ drain with old heme, thin Objective: Vital Signs Temp Pulse Resp BP Pulse Ox 36.8 C 96 18 143/59 H 95 05/22/17 07:42 05/22/17 07:42 05/22/17 07:42 05/22/17 07:42 05/22/17 07:42 Microbiology 05/18/17 15:34 Gram Stain - Final Other - Aspirate 05/18/17 15:34 Mycobacterial Smear (ANNA) - Final Other - Aspirate 04/24/17 14:50 Fungal Culture - Final Other - Other Laboratory Results 05/21/17 04:20 05/21/17 04:20 05/21/17 05/22/17 05/23/17 05:59 05:59 05:59 Intake Total 1150 1270 Output Total 485 1008 10 Balance 665 262 -10 PT 19.6 SEC (12.0-15.0) H 05/16/17 04:30 INR 1.65 (0.83-1.16) H 05/16/17 04:30 ICD10 Worksheet Patient Problems: Problems Problem Status Onset Acute exacerbation of congestive heart failure Acute Altered mental status Acute Aspiration pneumonia Acute Atrial fibrillation with rapid ventricular response Acute COPD (chronic obstructive pulmonary disease) Acute DM type 1 (diabetes mellitus, type 1) Acute Lumbosacral radiculopathy at L5 Acute Narcotic dependency, continuous Acute Perforated bowel Acute Renal failure Acute Severe sepsis with septic shock Acute Spinal stenosis, lumbar Acute Tobacco dependence Acute
== END 2017-05-22 13:21 | disposition short-term general hospital (02) | DRG 853 ==
LOC: EDUNIT# → F2N 23:24 → F2W 04-20 22:45 → F2N 04-26 14:22 → F2W 05-05 15:06 → F2N 05-18 13:03 → F3E 05-19 20:32
PROVIDERS: ADMIT Internal Medicine; ATTEND Internal Medicine
PROC: 5A2204Z Restoration of Cardiac Rhythm, Single (ICD-10-PCS; 2017-04-12)
PROC: 0DB80ZZ Excision of Small Intestine, Open Approach (ICD-10-PCS; principal; 2017-04-13)
PROC: 0BQT0ZZ Repair Diaphragm, Open Approach (ICD-10-PCS; principal; 2017-04-13)
PROC: 0DTH0ZZ Resection of Cecum, Open Approach (ICD-10-PCS; principal; 2017-04-13)
PROC: 0DQ80ZZ Repair Small Intestine, Open Approach (ICD-10-PCS; principal; 2017-04-13)
PROC: 02HV33Z Insertion of Infusion Device into Superior Vena Cava, Percutaneous Approach (ICD-10-PCS; 2017-04-13)
PROC: 5A1955Z Respiratory Ventilation, Greater than 96 Consecutive Hours (ICD-10-PCS; 2017-04-13 05:15)
PROC: 0B9M8ZZ Drainage of Bilateral Lungs, Via Natural or Artificial Opening Endoscopic (ICD-10-PCS; 2017-04-13 05:15)
PROC: 0BH18EZ Insertion of Endotracheal Airway into Trachea, Via Natural or Artificial Opening Endoscopic (ICD-10-PCS; 2017-04-13 05:15)
PROC: 0B968ZZ Drainage of Right Lower Lobe Bronchus, Via Natural or Artificial Opening Endoscopic (ICD-10-PCS; 2017-04-15)
PROC: 0DQ80ZZ Repair Small Intestine, Open Approach (ICD-10-PCS; 2017-04-16)
PROC: 0DQE0ZZ Repair Large Intestine, Open Approach (ICD-10-PCS; 2017-04-16)
PROC: 2W1 Placement, Anatomical Regions, Compression (ICD-10-PCS; 2017-04-16)
PROC: 3E1M38Z Irrigation of Peritoneal Cavity using Irrigating Substance, Percutaneous Approach (ICD-10-PCS; 2017-04-16)
PROC: 079P3ZX Drainage of Spleen, Percutaneous Approach, Diagnostic (ICD-10-PCS; 2017-04-24)
PROC: 3E1M38Z Irrigation of Peritoneal Cavity using Irrigating Substance, Percutaneous Approach (ICD-10-PCS; 2017-04-26)
PROC: 0DNW0ZZ Release Peritoneum, Open Approach (ICD-10-PCS; 2017-04-26)
PROC: 2W1 Placement, Anatomical Regions, Compression (ICD-10-PCS; 2017-04-26)
PROC: 30233N1 Transfusion of Nonautologous Red Blood Cells into Peripheral Vein, Percutaneous Approach (ICD-10-PCS; 2017-04-27)
PROC: 0W9G0ZZ Drainage of Peritoneal Cavity, Open Approach (ICD-10-PCS; 2017-04-27)
PROC: 30233R1 Transfusion of Nonautologous Platelets into Peripheral Vein, Percutaneous Approach (ICD-10-PCS; 2017-04-27)
PROC: 3E1M38Z Irrigation of Peritoneal Cavity using Irrigating Substance, Percutaneous Approach (ICD-10-PCS; 2017-04-27)
PROC: 0WCG0ZZ Extirpation of Matter from Peritoneal Cavity, Open Approach (ICD-10-PCS; 2017-04-27)
PROC: 02HV3DZ Insertion of Intraluminal Device into Superior Vena Cava, Percutaneous Approach (ICD-10-PCS; 2017-04-27)
PROC: 0B9N30Z Drainage of Right Pleura with Drainage Device, Percutaneous Approach (ICD-10-PCS; 2017-04-27)
PROC: 3E1M38Z Irrigation of Peritoneal Cavity using Irrigating Substance, Percutaneous Approach (ICD-10-PCS; 2017-04-28)
PROC: 0JQ80ZZ Repair Abdomen Subcutaneous Tissue and Fascia, Open Approach (ICD-10-PCS; 2017-04-28)
PROC: 30283B1 Transfusion of Nonautologous 4-Factor Prothrombin Complex Concentrate into Vein, Percutaneous Approach (ICD-10-PCS; 2017-04-29)
PROC: 0B9 Respiratory System, Drainage (ICD-10-PCS; 2017-04-30)
PROC: 0B9B8ZZ Drainage of Left Lower Lobe Bronchus, Via Natural or Artificial Opening Endoscopic (ICD-10-PCS; 2017-04-30)
PROC: 0B968ZZ Drainage of Right Lower Lobe Bronchus, Via Natural or Artificial Opening Endoscopic (ICD-10-PCS; 2017-04-30)
PROC: 0B988ZZ Drainage of Left Upper Lobe Bronchus, Via Natural or Artificial Opening Endoscopic (ICD-10-PCS; 2017-04-30)
PROC: 3E1F88Z Irrigation of Respiratory Tract using Irrigating Substance, Via Natural or Artificial Opening Endoscopic (ICD-10-PCS; 2017-04-30)
PROC: 0B9N30Z Drainage of Right Pleura with Drainage Device, Percutaneous Approach (ICD-10-PCS; 2017-05-06)
DX: A41.9 Sepsis, unspecified organism (principal); R65.21 Severe sepsis with septic shock; K65.0 Generalized (acute) peritonitis; K63.1 Perforation of intestine (nontraumatic); K44.0 Diaphragmatic hernia with obstruction, without gangrene; K55.049 Acute infarction of large intestine, extent unspecified; J96.21 Acute and chronic respiratory failure with hypoxia; I50.31 Acute diastolic (congestive) heart failure; Z99.81 Dependence on supplemental oxygen; J44.9 Chronic obstructive pulmonary disease, unspecified; D62 Acute posthemorrhagic anemia; J69.0 Pneumonitis due to inhalation of food and vomit; N39.0 Urinary tract infection, site not specified; I48.0 Paroxysmal atrial fibrillation; G92 Toxic encephalopathy; J93.9 Pneumothorax, unspecified; K92.2 Gastrointestinal hemorrhage, unspecified; K56.7 Ileus, unspecified; D73.3 Abscess of spleen; I82.612 Acute embolism and thrombosis of superficial veins of left upper extremity; L89.143 Pressure ulcer of left lower back, stage 3; L89.152 Pressure ulcer of sacral region, stage 2; N17.9 Acute kidney failure, unspecified; R13.10 Dysphagia, unspecified; E87.1 Hypo-osmolality and hyponatremia; D68.32 Hemorrhagic disorder due to extrinsic circulating anticoagulants; T45.515A Adverse effect of anticoagulants, initial encounter; E87.8 Other disorders of electrolyte and fluid balance, not elsewhere classified; E87.2 Acidosis; D63.8 Anemia in other chronic diseases classified elsewhere; E83.51 Hypocalcemia; I87.2 Venous insufficiency (chronic) (peripheral); B37.0 Candidal stomatitis; G89.29 Other chronic pain; F11.20 Opioid dependence, uncomplicated; I95.9 Hypotension, unspecified; M48.061 Spinal stenosis, lumbar region without neurogenic claudication; F17.210 Nicotine dependence, cigarettes, uncomplicated; Z66 Do not resuscitate; Z85.46 Personal history of malignant neoplasm of prostate
CPT/HCPCS: 82947-QW; 83010-90; 85520-90; 92507-GN; 92523-GN; 92526-GN; 92610-GN; 92611-GN; 96365; 97110-GP; 97112-GP; 97116-GP; 97162-GP; 97164-GP; 97166-GO; 97168-GO; 97530-GO; 97530-GP; 97535-GO; C1729; C1751; C1769; C9132; G8978-GP-CL; G8978-GP-CM; G8979-GP-CJ; G8979-GP-CK; G8987-GO-CK; G8987-GO-CL; G8987-GO-CM; G8988-GO-CJ; G8988-GO-CK; G8996-GN-CI; G8996-GN-CJ; G8996-GN-CL; G8997-GN-CH; G8997-GN-CI; G8997-GN-CJ; G9168-GN-CK; G9169-GN-CK; G9170-GN-CK; J0171; J0282; J0295; J0610; J0692; J1100; J1170; J1200; J1265; J1642; J1644; J1650; J1815; J1940; J1956; J2060; J2185; J2248; J2250; J2370; J2405; J2543; J2704; J2765; J2997; J3010; J3370; J3411; J3430; J3475; P9016; P9017; P9035; P9041; P9047; Q9967

== ENCOUNTER 2017-07-11 09:35 | Day surgery (SDC) | payer OTHER ==
[~2017-07-11 09:35] MED LIST changes: -LIDOCAINE 1% 300 MG/30 ML SDV ONE; +NS 1,000 ML IV ONE
--- NOTE | 2017-07-11 10:03 | CPEKG ---
Heart Rate: 79 RR Interval: 759 P-R Interval: 164 QRSD Interval: 84 QT Interval: 384 QTC Interval: 441 P [place]: 70 QRS [place]: 48 T Wave [place]: 43 EKG Severity - ABNORMAL ECG - EKG Impression: SINUS RHYTHM EKG Impression: MULTIPLE ATRIAL PREMATURE COMPLEXES EKG Impression: COMPARED WITH 05/13/2017, ATRIAL ECTOPY NOW SEEN Electronically Signed By: Rosaura Werner 11-Jul-2017 15:37:40
[2017-07-11 11:59] LABS: HEMATOCRIT 27.7 % (40.0-51.0); HEMOGLOBIN 8.6 g/dL (13.7-17.5); MEAN CELL HEMOGLOBIN 29.2 pg (27.9-34.1); MEAN CELL VOLUME 93.9 fL (81.5-99.8); RED BLOOD CELL COUNT 2.95 10^6/uL (4.40-6.38); RED CELL DISTRIBUTION WIDTH 16.3 % (11.5-15.2)
[2017-07-11 12:08] LABS: INR 4.33 (0.83-1.16)
[2017-07-11 12:13] LABS: ALANINE AMINOTRANSFERASE 17 IU/L (21-72); ALBUMIN 3.1 g/dL (3.5-5.0); ALKALINE PHOSPHATASE 113 IU/L (38-126); ANION GAP 16 mEq/L (8-16); ASPARTATE AMINOTRANSFERASE 20 IU/L (17-59); BILIRUBIN,TOTAL 0.5 mg/dL (0.1-1.4); CALCIUM 8.3 mg/dL (8.5-10.4); CARBON DIOXIDE 25 mEq/l (22-31); CHLORIDE 104 mEq/L (97-110); GLOMERULAR FILTRATION RATE > 60; GLUCOSE 95 mg/dL (70-100); POTASSIUM 4.2 mEq/L (3.5-5.2); SODIUM 145 mEq/L (134-144); TOTAL PROTEIN 7.9 g/dL (6.3-8.2)
== END 2017-07-11 12:00 | disposition home or self-care (01) ==
LOC: FCATH 09:35
PROVIDERS: ATTEND Internal Medicine Cardiovascular Disease
DX: I48.91 Unspecified atrial fibrillation (principal); Z53.09 Procedure and treatment not carried out because of other contraindication; R06.02 Shortness of breath; D64.9 Anemia, unspecified; I50.30 Unspecified diastolic (congestive) heart failure; I25.119 Atherosclerotic heart disease of native coronary artery with unspecified angina pectoris; E11.21 Type 2 diabetes mellitus with diabetic nephropathy; J44.9 Chronic obstructive pulmonary disease, unspecified; E78.5 Hyperlipidemia, unspecified; I10 Essential (primary) hypertension; E21.3 Hyperparathyroidism, unspecified; E55.9 Vitamin D deficiency, unspecified; F17.210 Nicotine dependence, cigarettes, uncomplicated; F32.9 Major depressive disorder, single episode, unspecified; Z85.46 Personal history of malignant neoplasm of prostate; Z82.49 Family history of ischemic heart disease and other diseases of the circulatory system; Z95.5 Presence of coronary angioplasty implant and graft; Z79.01 Long term (current) use of anticoagulants; Z79.899 Other long term (current) drug therapy

== ENCOUNTER 2018-12-24 13:37 | Inpatient (IN) | payer OTHER | END 2018-12-30 15:30 | LOC: F3E 15:01 ==

== ENCOUNTER 2019-01-08 20:44 | Emergency (ER) | payer OTHER | END 2019-01-09 01:39 | disposition home or self-care (01) ==